=== PATIENT | male | born 1955 | race Caucasian/White ===

== ENCOUNTER 2016-11-19 10:42 | Emergency (ER) | payer OTHER ==
[~2016-11-19] VITALS: Wt 80.5 kg
[~2016-11-19 10:42] MED LIST: AMIT25TA9 PO; ASPI-664 PO; ATOR10TA65 PO; BICS PO; CALC-84 PO; CARV3.12 PO; CIPR500T4 PO; CYAN500T46 PO; GABA300C PO; HYDR-3498 PO; HYDR-3671 PO; NITR0.4T6 SL; ONDA4TAB8 PO; RANI150T5 PO; TAMS-14 PO; TERA1CAP39 PO
[2016-11-19] MEDS ORDERED: ONDANSETRON (ODT) 4 MG TAB ODT STA (11:13)
[2016-11-19] MEDS ORDERED: HYDROCODONE/APAP (10/325) TAB PO ONE (11:30)
[2016-11-19] MEDS ORDERED: CIPROFLOXACIN 500 MG TAB PO ONE (11:30)
[2016-11-19 12:10] LABS: ADD UMIC YES; UR ASCORBIC ACID NEGATIVE (NEGATIVE); UR BILIRUBIN (Dip) NEGATIVE (NEGATIVE); UR BLOOD (Dip) 2+ mg/dL (NEGATIVE); UR CLARITY CLEAR (CLEAR); UR COLOR STRAW (YELLOW); UR GLUCOSE (Dip) 3+ mg/dL (NEGATIVE); UR KETONES (Dip) NEGATIVE (NEGATIVE); UR LEUKOCYTE ESTERASE (Dip) NEGATIVE Leu/ul (NEGATIVE); UR NITRITE (Dip) NEGATIVE (NEGATIVE); UR RBC 3 /HPF (0-5); UR SPECIFIC GRAVITY (Dip) 1.016 (1.003-1.030); UR TOTAL PROTEIN (Dip) NEGATIVE (NEGATIVE); UR UROBILINOGEN (Dip) NEGATIVE (NEGATIVE)
--- NOTE | 2016-11-19 12:11 | RADRPT ---
PROCEDURE: Scrotal ultrasound CLINICAL INDICATION: Left testicular pain. TECHNIQUE: Scrotal ultrasound was performed with sagittal and transverse views. Cheng scale and co diallo imaging was performed. Images were reviewed on high resolution PACS monitors. COMPARISON: None available FINDINGS: The right testicle measures 4.6 x 2.4 x 3.2 cm. The left testicle measures 4.1 x 2.8 x 3.6 cm. There is normal size and echogenicity and morphology bilaterally. There is blood flow seen bilaterally. There is slightly increased blood flow to the left epididymis and left testis.. There is a complex, septated cystic mass in the left epididymis No hydrocele is identified. There is no evidence for varicocele. There is edema in the scrotum, more so on the left than the right. No mass or cyst or other abnormality is seen. IMPRESSION: 1. Complex appearing cystic mass in the left epididymis which may represent a complex cyst such as a spermatocele. However, an inflammatory collection could have this appearance. 2. Increased flow to the left epididymis and left testis suggesting epididymo-orchitis. 3. Left scrotal edema. Note: A call report was made to Jose Dorsey on 11/19/2016 12:08:30 PM. RPTAT: AACC Physician Carolina Date Time Electronically viewed and signed by Physician Carolina on 11/19/2016 12:10 /
[2016-11-19] MEDS ORDERED: LISI20TA11 PO (12:18)
[2016-11-19] MEDS ORDERED: HYDR-902 PO (12:23)
[2016-11-19] MEDS ORDERED: ONDA4TAB14 PO (12:23)
[2016-11-19] MEDS ORDERED: CIPR500T4 PO (12:23)
--- NOTE | 2016-11-19 12:31 | ERD ---
ER Documentation Chief Complaint Date/Time DATE: 11/19/16 TIME: 12:28 Chief Complaint ABD PAIN PAIN, BLOATING, N/V HPI Patient is a 61-year-old male with kidney disease, hypertension, and hematuria as well as previous urine infections who presents with left-sided groin and testicle pain. He has had the symptoms for the past 3 days. He said that his left testicle is swollen. He called his primary doctor who told him to come to the emergency department. The patient denies fevers. He tried pain pills. He has no pain with urination. Upon review of old medical records this is the patient's fourth visit to the ER since 2013. He does not currently have a urologist. ROS All systems reviewed and are negative except as per history of present illness. Medications Home Meds Active Scripts Ciprofloxacin Hcl* (Ciprofloxacin Hcl*) 500 Mg Tablet, 500 MG PO BID for 14 Days , TAB Prov:JOSE NAQVI MD 11/19/16 Ondansetron (Ondansetron Odt) 4 Mg Tab.rapdis, 4 MG PO Q6H Y for NAUSEA AND/OR VOMITING, #10 TAB Prov:JOSE NAQVI MD 11/19/16 Hydrocodone/Acetaminophen ([place] 10-325 Tablet) 1 Each Tablet, 1 TAB PO Q6H Y for PAIN, #7 TAB Prov:JOSE NAQVI MD 11/19/16 Citric Acid/Sodium Citrate* (Bicitra* (PEDIATRIC)) 30 Ml Soln, 30 ML PO DAILY for 30 Days Prov:DONNA CARSON NP 01/11/14 Terazosin Hcl* (Hytrin*) 1 Mg Cap, 1 MG PO HS for 30 Days, CAP Prov:DONNA CARSON NP 01/11/14 Tamsulosin Hcl* (Flomax*) 0.4 Mg Capsr, 0.4 MG PO HS for 30 Days Prov:DONNA CARSON NP 01/11/14 Hydralazine Hcl* (Hydralazine Hcl*) 25 Mg Tab, 25 MG PO TID for 30 Days, TAB Prov:DONNA CARSON NP 01/11/14 Reported Medications Lisinopril* (Lisinopril*) 20 Mg Tablet, 20 MG PO DAILY, #30 TAB 11/19/16 Cyanocobalamin* (Vitamin B12*) 500 Mcg Tab, 1000 MCG PO DAILY, TAB 01/03/14 Calcium Carbonate-Vitamin D3 (Calcium 500 + D Tablet) 1 Each Tablet, 1 TAB PO BID, TAB 01/03/14 Nitroglycerin* (Nitroglycerin* SL) 0.4 Mg Tab.subl, 0.4 MG SL Q5MIN Y for CHEST PAIN, BOTTLE 01/03/14 Aspirin* (Aspirin* EC) 81 Mg Tablet.dr, 81 MG PO DAILY, TAB 01/03/14 Hydrocodone Bit-Acetaminophen* ([place]*) 5-325 Mg Tab, 1 TAB PO Q6 Y for PAIN, TAB 01/03/14 Atorvastatin Calcium (Atorvastatin Calcium) 10 Mg Tab, 10 MG PO HS, TAB 01/03/14 Gabapentin* (Neurontin*) 300 Mg Capsule, 300 MG PO TID, CAP 01/03/14 Carvedilol* (Coreg*) 3.125 Mg Tablet, 3.125 MG PO BID W/ FOOD, TAB 01/03/14 Ondansetron Hcl* (Zofran*) 4 Mg Tablet, 4 MG PO TID Y for NAUSEA AND/OR VOMITING , TAB 01/03/14 Amitriptyline Hcl* (Amitriptyline Hcl*) 25 Mg Tablet, 25-50 MG PO HS, TAB 01/03/14 Ranitidine Hcl* (Ranitidine Hcl*) 150 Mg Tablet, 150 MG PO BID, TAB 01/03/14 Discontinued Scripts Ciprofloxacin Hcl* (Ciprofloxacin Hcl*) 500 Mg Tab, 500 MG PO DAILY@06 for 3 Days Prov:DONNA CARSON Beto BLOCKING MACHINE OPERATOR SECOND 01/11/14 Allergies Allergies: Uncoded Allergies: ANTIBIOTICS (Allergy, Unknown, 01/03/14) PMhx/Soc History of Surgery: Yes (Lumbar/Cervical surgery) Anesthesia Reaction: No Hx Neurological Disorder: Yes (peripheral neuropathy) Hx Respiratory Disorders: No Hx Cardiac Disorders: Yes (HTN) Hx Psychiatric Problems: No Hx Miscellaneous Medical Probl: Yes (DM, peripheral neuropathy) Hx Alcohol Use: No Hx Substance Use: No Hx Tobacco Use: No Smoking Status: Never smoker FmHx Family History: No diabetes Physical Exam Vitals Vital Signs Date Time Temp Pulse Resp B/P Pulse Ox O2 Delivery O2 Flow Rate FiO2 11/19/16 10:43 80.5 90 18 158/73 96 Physical Exam Const: No acute distress Head: Atraumatic Eyes: Normal Conjunctiva ENT: Normal External Ears, Nose and Mouth. Neck: Full range of motion..~ No meningismus. Resp: Clear to auscultation bilaterally Cardio: Regular rate and rhythm, no murmurs Abd: Soft, non tender, non distended. Normal bowel sounds Skin: No petechiae or rashes Back: No midline or flank tenderness Ext: No cyanosis, or edema Neur: Awake and alert : Swollen left testicle with tenderness to palpation and scrotal erythema as well without signs of abscess or crepitus or Erin's gangrene Results 24 hrs Laboratory Tests Test 11/19/16 11:25 Urine Color STRAW Urine Clarity CLEAR Urine pH 5.0 Urine Specific [place] 1.016 Urine Ketones NEGATIVEmg/dL Urine Nitrite NEGATIVEmg/dL Urine Bilirubin NEGATIVEmg/dL Urine Urobilinogen NEGATIVEmg/dL Urine Leukocyte Esterase NEGATIVELeu/ul Urine Microscopic RBC 3/HPF Urine Microscopic WBC 7/HPF Urine Hemoglobin 2+mg/dL Urine Glucose 3+mg/dL Urine Total Protein NEGATIVEmg/dl Current Medications Medications (Trade) Dose Ordered Sig/Aubrey Route PRN Reason Start Time Stop Time Status Last Admin Dose Admin Acetaminophen/ Hydrocodone Bitart ([place] (10/325)) 1 tab ONCE ONCE PO 11/19/16 11:30 11/19/16 11:31 DC 11/19/16 12:03 Ondansetron HCl (Zofran Odt) 4 mg ONCE STAT ODT 11/19/16 11:13 11/19/16 11:15 DC 11/19/16 12:05 Ciprofloxacin (Cipro) 500 mg ONCE ONCE PO 11/19/16 11:30 11/19/16 11:31 DC 11/19/16 12:05 Procedures/MDM PROCEDURE: Scrotal ultrasound CLINICAL INDICATION: Left testicular pain. TECHNIQUE: Scrotal ultrasound was performed with sagittal and transverse views. Cheng scale and color imaging was performed. Images were reviewed on high resolution PACS monitors. COMPARISON: None available FINDINGS: The right testicle measures 4.6 x 2.4 x 3.2 cm. The left testicle measures 4.1 x 2.8 x 3.6 cm. There is normal size and echogenicity and morphology bilaterally. There is blood flow seen bilaterally. There is slightly increased blood flow to the left epididymis and left testis.. There is a complex, septated cystic mass in the left epididymis No hydrocele is identified. There is no evidence for varicocele. There is edema in the scrotum, more so on the left than the right. No mass or cyst or other abnormality is seen. IMPRESSION: 1. Complex appearing cystic mass in the left epididymis which may represent a complex cyst such as a spermatocele. However, an inflammatory collection could have this appearance. 2. Increased flow to the left epididymis and left testis suggesting epididymo- orchitis. 3. Left scrotal edema. Note: A call report was made to Jose Dorsey on 11/19/2016 12:08:30 PM. RPTAT: AACC Physician [place] Date Time Electronically viewed and signed by Francisco Nickerson Physician on 11/19/2016 12: 10 Urinalysis shows mild infection, urine culture pending. Patient is a 61-year-old male who presents with left-sided testicle pain and swelling. There is no sign of testicular torsion per radiology. The patient has an epididymitis and orchitis. He will be treated with 2 weeks of Cipro. He said that he has allergies to antibiotics but he has taken Cipro in the past which works well for him. The patient has a urine culture which is pending. I believe outpatient management is appropriate at this time but I will give him information for Dr. Rodriguez from urology. He should follow-up within 24-48 hours. He can return for any worsening symptoms. He was provided with copies of his laboratory studies and ultrasound report prior to discharge. Departure Diagnosis: Primary Impression: Orchitis Condition: Fair Patient Instructions: Treating Epididymitis and Orchitis Referrals: ANCA RODRIGUEZ MD Additional Instructions: SPECIALIST: YOU HAVE A MEDICAL CONDITION WHICH REQUIRES YOU TO SEE A SPECIALIST WITHIN THE NEXT 1-2 DAYS. PLEASE FOLLOW UP WITH YOUR PRIMARY PHYSICIAN FOR REFFERAL.IF YOU DO NOT HAVE A PRIMARY CARE PHYSICIAN AND/OR YOU CAN NOT AFFORD TO SEE A PHYSICIAN THE FOLLOWING RESOURCES HAVE BEEN SUPPLIED TO YOU. IT IS YOUR RESPONSIBILITY TO BE SEEN BY THE SPECIALIST JOSE NAQVI MD Nov 19, 2016 12:31
[2016-11-19 12:32] VITALS: BP 132/73; PULSE 88; RESP 16
== END 2016-11-19 13:13 | disposition home or self-care (01) ==
LOC: E/R 10:42
DX: N45.2 Orchitis (principal); E11.9 Type 2 diabetes mellitus without complications; I12.9 Hypertensive chronic kidney disease with stage 1 through stage 4 chronic kidney disease, or unspecified chronic kidney disease; N18.9 Chronic kidney disease, unspecified; Z79.82 Long term (current) use of aspirin
CPT/HCPCS: 76870; 81001; 87086; Z7502; Z7610

== ENCOUNTER 2016-11-24 13:52 | Inpatient (IN) | payer OTHER ==
[~2016-11-24] VITALS: Ht 157.5 cm; Wt 78.0 kg
[~2016-11-24 13:52] MED LIST changes: +HYDR-902 PO; +LISI20TA11 PO; +NITR0.4T32 SL; -NITR0.4T6 SL; +ONDA4TAB14 PO
--- NOTE | 2016-11-24 17:17 | ERA ---
ER Documentation Chief Complaint Date/Time DATE: 11/24/16 TIME: 17:16 Chief Complaint cp, Left Testicular pain HPI The patient is a 61-year-old male, presenting with left testicular pain for approximately 1 week, was seen in the ER about 5 days ago and diagnosed with left epididymoorchitis and discharged with Cipro. He is not getting better despite taking Cipro. He has not been able to see a urologist yet He complains of left-sided chest pain acute on chronic chest pain today. He normally took Viagra he denies chest pain with exertion/vomiting/diaphoresis. He denied dysuria, diarrhea, constipation, painful urination or frequent urination. He does not smoke or drink Past medical history: Chronic neck pain, chronic back pain, peripheral neuropathy, diabetes mellitus, hypertension, chronic kidney disease, dyslipidemia, left foot drop Past surgical history: Back, abdominal exploratory surgery ROS All systems reviewed and are negative except as per history of present illness. Medications Home Meds Active Scripts Ondansetron (Ondansetron Odt) 4 Mg Tab.rapdis, 4 MG PO Q6H Y for NAUSEA AND/OR VOMITING, #10 TAB Prov:JOSE NAQVI MD 11/19/16 Hydrocodone/Acetaminophen ([place] 10-325 Tablet) 1 Each Tablet, 1 TAB PO Q6H Y for PAIN, #7 TAB Prov:JOSE NAQVI MD 11/19/16 Hydralazine Hcl* (Hydralazine Hcl*) 25 Mg Tab, 25 MG PO TID for 30 Days, TAB Prov:DONNA CARSON NP 01/11/14 Reported Medications Ergocalciferol (Vitamin D2) (VITAMIN D2) 50,000 Unit Capsule, 66606 UNIT PO Q7D , CAP 11/24/16 Lisinopril/Hydrochlorothiazide (Lisinopril-Hctz 20-12.5 mg Tab) 1 Each Tablet, 1 EACH PO BID, TAB 11/24/16 Ibuprofen* (Ibuprofen*) 600 Mg Tablet, 600 MG PO BID Y for PAIN, TAB 11/24/16 Sildenafil Citrate* (Viagra*) 100 Mg Tablet, 100 MG PO DAILY, TAB 11/24/16 Insulin Lispro (Humalog Kwikpen U-100) 100 Unit/1 Ml Insuln.pen, 40 UNIT SQ WITH MEALS TID 11/24/16 Insulin Glargine* (Lantus*) 100 Unit/Ml Soln, 60 UNIT SC QHS, #1 VIAL 11/24/16 Nitroglycerin* (Nitroglycerin* SL) 0.4 Mg Tab.subl, 0.4 MG SL Q5MIN Y for CHEST PAIN, BOTTLE 01/03/14 Gabapentin* (Neurontin*) 300 Mg Capsule, 300 MG PO DAILY, CAP 01/03/14 Discontinued Reported Medications Lisinopril* (Lisinopril*) 20 Mg Tablet, 20 MG PO DAILY, #30 TAB 11/19/16 Cyanocobalamin* (Vitamin B12*) 500 Mcg Tab, 1000 MCG PO DAILY, TAB 01/03/14 Calcium Carbonate-Vitamin D3 (Calcium 500 + D Tablet) 1 Each Tablet, 1 TAB PO BID, TAB 01/03/14 Aspirin* (Aspirin* EC) 81 Mg Tablet.dr, 81 MG PO DAILY, TAB 01/03/14 Hydrocodone Bit-Acetaminophen* ([place]*) 5-325 Mg Tab, 1 TAB PO Q6 Y for PAIN, TAB 01/03/14 Atorvastatin Calcium (Atorvastatin Calcium) 10 Mg Tab, 10 MG PO HS, TAB 01/03/14 Carvedilol* (Coreg*) 3.125 Mg Tablet, 3.125 MG PO BID W/ FOOD, TAB 01/03/14 Ondansetron Hcl* (Zofran*) 4 Mg Tablet, 4 MG PO TID Y for NAUSEA AND/OR VOMITING , TAB 01/03/14 Amitriptyline Hcl* (Amitriptyline Hcl*) 25 Mg Tablet, 25-50 MG PO HS, TAB 01/03/14 Ranitidine Hcl* (Ranitidine Hcl*) 150 Mg Tablet, 150 MG PO BID, TAB 01/03/14 Discontinued Scripts Ciprofloxacin Hcl* (Ciprofloxacin Hcl*) 500 Mg Tablet, 500 MG PO BID for 14 Days , TAB Prov:JOSE NAQVI MD 11/19/16 Citric Acid/Sodium Citrate* (Bicitra* (PEDIATRIC)) 30 Ml Soln, 30 ML PO DAILY for 30 Days Prov:DONNA CARSON NP 01/11/14 Terazosin Hcl* (Hytrin*) 1 Mg Cap, 1 MG PO HS for 30 Days, CAP Prov:DONNA CARSON NP 01/11/14 Tamsulosin Hcl* (Flomax*) 0.4 Mg Capsr, 0.4 MG PO HS for 30 Days Prov:DONNA CARSON INSPECTOR STRUCTURAL BONDING 01/11/14 Ciprofloxacin Hcl* (Ciprofloxacin Hcl*) 500 Mg Tab, 500 MG PO DAILY@06 for 3 Days Prov:DONNA CARSON INSPECTOR STRUCTURAL BONDING 01/11/14 Allergies Allergies: Uncoded Allergies: ANTIBIOTICS (Allergy, Unknown, 01/03/14) PMhx/Soc History of Surgery: Yes (Lumbar/Cervical surgery) Anesthesia Reaction: No Hx Neurological Disorder: Yes (peripheral neuropathy) Hx Respiratory Disorders: No Hx Cardiac Disorders: Yes (HTN) Hx Psychiatric Problems: No Hx Miscellaneous Medical Probl: Yes (DM, peripheral neuropathy) Hx Alcohol Use: No Hx Substance Use: No Hx Tobacco Use: No Physical Exam Vitals Vital Signs Date Time Temp Pulse Resp B/P Pulse Ox O2 Delivery O2 Flow Rate FiO2 11/24/16 19:40 104 20 151/71 95 Room Air 11/24/16 14:00 98.1 111 18 128/60 99 Physical Exam Const: No acute distress. Head: Atraumatic. Eyes: Normal Conjunctiva. ENT: Normal External Ears, Nose and Mouth. Neck: Full range of motion. No meningismus. Resp: Clear to auscultation bilaterally. Cardio: Regular rate and rhythm. Abd: Soft, non distended, normal bowel sounds, non tender. Skin: No petechiae or rashes. Back: No midline or flank tenderness. Ext: No cyanosis, or edema. Neur: Awake and alert. No focal deficit Psych: Normal Mood and Affect. Genitourinary: Left testicle is edematous and erythematous and tender Result Diagram: 11/24/16 1800 11/24/16 1800 Results 24 hrs Laboratory Tests Test 11/24/16 18:00 11/24/16 18:05 White Blood Count 15.010^3/ul Red Blood Count 4.7210^6/ul Hemoglobin 12.5g/dl Hematocrit 38.4% Mean Corpuscular Volume 81.4fl Mean Corpuscular Hemoglobin 26.5pg Mean Corpuscular Hemoglobin Concent 32.6g/dl Red Cell Distribution Width 13.1% Platelet Count 86848^3/UL Mean Platelet Volume 9.8fl Neutrophils % 80.5% Lymphocytes % 12.5% Monocytes % 4.7% Eosinophils % 1.5% Basophils % 0.3% Nucleated Red Blood Cells % 0.0/100WBC Neutrophils # 12.110^3/ul Lymphocytes # 1.910^3/ul Monocytes # 0.710^3/ul Eosinophils # 0.210^3/ul Basophils # 0.010^3/ul Nucleated Red Blood Cells # 0.010^3/ul Sodium Level 135mmol/L Potassium Level 4.1mmol/L Chloride Level 100mmol/L Carbon Dioxide Level 23mmol/L Anion Gap 16 Blood Urea Nitrogen 40mg/dl Creatinine 1.95mg/dl Glucose Level 276mg/dl Calcium Level 9.7mg/dl Troponin I < 0.012ng/ml Urine Color STRAW Urine Clarity CLEAR Urine pH 5.0 Urine Specific [place] 1.013 Urine Ketones NEGATIVEmg/dL Urine Nitrite NEGATIVEmg/dL Urine Bilirubin NEGATIVEmg/dL Urine Urobilinogen NEGATIVEmg/dL Urine Leukocyte Esterase NEGATIVELeu/ul Urine Microscopic RBC 0/HPF Urine Microscopic WBC 5/HPF Urine Hemoglobin 1+mg/dL Urine Glucose 3+mg/dL Urine Total Protein NEGATIVEmg/dl Current Medications Medications (Trade) Dose Ordered Sig/Aubrey Route PRN Reason Start Time Stop Time Status Last Admin Dose Admin Levofloxacin/ Dextrose (Levaquin 750 Mg/ D5W 150 ml (Pmx)) 150 ml @ 100 mls/hr ONCE ONCE IVPB 11/24/16 19:00 11/24/16 20:29 Cancel Morphine Sulfate (morphine) 4 mg ONCE STAT IV 11/24/16 18:47 11/24/16 18:49 DC 11/24/16 18:58 Ondansetron HCl 4 mg 4 mg ONCE STAT IV 11/24/16 18:47 11/24/16 18:50 DC 11/24/16 18:57 Levofloxacin/ Dextrose (Levaquin 500mg/ D5W 100 ml (Pmx)) 100 ml @ 100 mls/hr ONCE ONCE IVPB 11/24/16 19:30 11/24/16 20:29 DC 11/24/16 19:31 Aspirin (Aspirin) 162 mg ONCE ONCE PO 11/24/16 19:30 11/24/16 19:31 DC 11/24/16 19:34 IV Flush (NS 3 ml) 3 ml PER PROTOCOL IV 11/24/16 20:30 Ondansetron HCl (Zofran Inj) 4 mg Q6H PRN IV NAUSEA AND/OR VOMITING 11/24/16 20:30 Acetaminophen (Tylenol Tab) 650 mg Q6H PRN PO PAIN LEVEL 1-3 OR FEVER 11/24/16 20:30 Morphine Sulfate (morphine) 2 mg Q4H PRN IV PAIN LEVEL 7-10 11/24/16 20:30 Famotidine (Pepcid) 20 mg Q24H PO 11/24/16 21:00 Procedures/[place] [id number] Radiology Main Line: [phone] DIAGNOSTIC IMAGING REPORT Patient: HEENA CHRISTIAN : 1955 Age: 61 Sex: M MR #: [id number] DOS: 11/24/16 0000 Ordering MD: LAYLA MUSTAFA MD Location: E/R Room/Bed: PROCEDURE: Scrotal ultrasound CLINICAL INDICATION: Scrotal swelling. TECHNIQUE: Cheng scale and color Doppler imaging of the scrotum was performed. COMPARISON: Exam dated 11/19/2016. FINDINGS: Right testicle: 4.5 x 2.6 x 3.2 cm. Normal size and echogenicity. Increased flow Right epididymis: Unremarkable. Left testicle: 4.5 x 1.4 x 3.5 cm. Lesion within the left harshil scrotum that demonstrates mixed solid and cystic components with flow identified in the solid appearing components and causes scalloping of the adjacent left testicle measuring 5.2 x 2.8 x 4.2 cm. There is increased flow within the left testicle. There is edema within the overlying scrotal wall. Left epididymis: Hypervascular, but otherwise unremarkable. Hydrocele: None. Varicocele: None. IMPRESSION: 1. Heterogeneous mixed solid cystic lesion within the left harshil scrotum measuring 4.5 x 1.4 x 3.5 cm causing scalloping of the left testicle. This is suspicious for neoplasm and urology consultation is recommended. Pre and post contrast MRI may be helpful to further characterize a lesion. 2. Bilateral testicular hyperemia, possibly related to orchitis. 3. Left epididymal hyperemia, consistent with epididymitis. RPTAT: HLBP .Jose Oliver MD, MD Date Time Electronically viewed and signed by .Jose Oliver MD, MD on 11/24/2016 20:32 .P/ CC: LAYLA MUSTAFA MD [place] [address] Radiology Main Line: [phone] DIAGNOSTIC IMAGING REPORT Patient: HEENA CHRISTIAN : 1955 Age: 61 Sex: M MR #: [id number] DOS: 11/24/16 1740 Ordering MD: LAYLA MUSTAFA MD Location: E/R Room/Bed: PROCEDURE: XR Chest. CLINICAL INDICATION: Chest Pain. TECHNIQUE: Single frontal view of the chest was obtained. COMPARISON: 01/03/2014 FINDINGS: The cardiomediastinal silhouette is normal size. Pulmonary vasculature is within normal limits. There is elevation of the right diaphragm. There is pleural thickening along the lateral right chest wall.. No signs of pleural fluid or pneumothorax are seen. The osseous structures and soft tissues are unremarkable. IMPRESSION: 1. Elevation of the right hemidiaphragm. Pleural thickening along the lateral right chest wall. 2. No focal consolidation or edema. RPTAT: DD .Jose George MD, MD Date Time Electronically viewed and signed by .Jose George MD, MD on 11/24/2016 18:28 .T/ CC: LAYLA MUSTAFA MD EKG: Read by emergency physician Rate/Rhythm: Sinus tachycardia 107 beats/min QRS, ST, T-waves: No ST elevation, no T inversion Impression: Abnormal EKG MEDICAL MAKING DECISION: The patient is a 61-year-old male, presenting with acute left epididymal orchitis, failed outpatient therapy, acute chest pain. He was treated with Levaquin IV for acute epididymal orchitis and aspirin 150 mg p.o. for acute chest pain with good response X The differential diagnoses considered include but are not limited to acute coronary syndrome, acute myocardial infarction, pericarditis, pulmonary embolism , aortic dissection, pneumonia, pleural effusion, pneumothorax, GERD, chest wall pain. Consultation: I discussed this with the on-call urologist Dr. Morgan who accepted the patient at 7 PM and requested a repeat testicular ultrasound Departure Diagnosis: Primary Impression: Left epididymitis Additional Impressions: Orchitis, left Chest pain Anemia Condition: Stable Comments I discussed the findings with the patient. I discussed the patient with the on- call hospitalist Dr Bernal who was made aware of the lab, the treatment, the patient condition. The patient is admitted to [facility] James MD Nov 24, 2016 17:17
[2016-11-24 18:23] LABS: BASOPHILS % 0.3 % (0.0-2.0); EOSINOPHILS # 0.2 10^3/ul (0.0-0.5); EOSINOPHILS % 1.5 % (0.0-7.0); HEMATOCRIT 38.4 % (42.0-52.0); HEMOGLOBIN 12.5 g/dl (14.0-18.0); LYMPHOCYTES # 1.9 10^3/ul (0.8-2.9); LYMPHOCYTES % 12.5 % (15.0-51.0); MEAN CORPUSCULAR HEMOGLOBIN 26.5 pg (29.0-33.0); MEAN CORPUSCULAR HGB CONC 32.6 g/dl (32.0-37.0); MEAN CORPUSCULAR VOLUME 81.4 fl (82.0-101.0); MEAN PLATELET VOLUME 9.8 fl (7.4-10.4); MONOCYTE # 0.7 10^3/ul (0.3-0.9); MONOCYTES % 4.7 % (0.0-11.0); NEUTROPHIL # 12.1 10^3/ul (1.6-7.5); NEUTROPHILS % 80.5 % (39.0-77.0); PLATELET COUNT 244 10^3/UL (140-415); RED BLOOD COUNT 4.72 10^6/ul (4.70-6.10); RED CELL DISTRIBUTION WIDTH 13.1 % (11.5-14.5)
--- NOTE | 2016-11-24 18:28 | RADRPT ---
PROCEDURE: XR Chest. CLINICAL INDICATION: Chest Pain. TECHNIQUE: Single frontal view of the chest was obtained. COMPARISON: 01/03/2014 FINDINGS: The cardiomediastinal silhouette is normal size. Pulmonary vasculature is within normal limits. Th ere is elevation of the right diaphragm. There is pleural thickening along the lateral right chest w all.. No signs of pleural fluid or pneumothorax are seen. The osseous structures and soft tissues are unre markable. IMPRESSION: 1. Elevation of the right hemidiaphragm. Pleural thickening along the lateral right chest wall. 2. No focal consolidation or edema. RPTAT: DD .Jose George MD, MD Date Time Electronically viewed and signed by .Jose eGorge MD, on 11/24/2016 18:28 .T/
[2016-11-24 18:38] LABS: ADD UMIC YES; UR ASCORBIC ACID NEGATIVE (NEGATIVE); UR BILIRUBIN (Dip) NEGATIVE (NEGATIVE); UR BLOOD (Dip) 1+ mg/dL (NEGATIVE); UR CLARITY CLEAR (CLEAR); UR COLOR STRAW (YELLOW); UR GLUCOSE (Dip) 3+ mg/dL (NEGATIVE); UR KETONES (Dip) NEGATIVE (NEGATIVE); UR LEUKOCYTE ESTERASE (Dip) NEGATIVE Leu/ul (NEGATIVE); UR NITRITE (Dip) NEGATIVE (NEGATIVE); UR RBC 0 /HPF (0-5); UR SPECIFIC GRAVITY (Dip) 1.013 (1.003-1.030); UR TOTAL PROTEIN (Dip) NEGATIVE (NEGATIVE); UR UROBILINOGEN (Dip) NEGATIVE (NEGATIVE)
[2016-11-24 18:46] LABS: ANION GAP 16 (8-16); BLOOD UREA NITROGEN 40 mg/dl (7-20); CALCIUM 9.7 mg/dl (8.4-10.2); CARBON DIOXIDE 23 mmol/L (21-31); CHLORIDE 100 mmol/L (97-110); CREATININE 1.95 mg/dl (0.61-1.24); GLUCOSE 276 mg/dl (70-220); POTASSIUM 4.1 mmol/L (3.5-5.1); SODIUM 135 mmol/L (135-144)
[2016-11-24] MEDS ORDERED: morphine 4 MG/ML VIAL IV STA (18:47)
[2016-11-24] MEDS ORDERED: ONDANSETRON 4 MG INJ IV STA (18:47)
[2016-11-24] MEDS ORDERED: LANT3I SC (18:55)
[2016-11-24 18:59] LABS: TROPONIN-I < 0.012 ng/ml (0.00-0.12)
[2016-11-24] MEDS ORDERED: LEVOFLOXACIN 750MG/D5W (PMX) 150 ML IVPB ONE (19:00)
[2016-11-24] MEDS ORDERED: INSU100I12 SQ (19:05)
[2016-11-24] MEDS ORDERED: SILD100T51 PO (19:07)
[2016-11-24] MEDS ORDERED: IBUP-1542 PO (19:08)
[2016-11-24] MEDS ORDERED: LISI1TAB6 PO (19:13)
[2016-11-24] MEDS ORDERED: ERGO500037 PO (19:14)
[2016-11-24] MEDS ORDERED: ASPIRIN 81 MG TAB PO ONE (19:30)
[2016-11-24] MEDS ORDERED: LEVOFLOXACIN 500MG/D5W (PMX) 100 ML IVPB ONE (19:30)
--- NOTE | 2016-11-24 20:13 | HP ---
Date/Time of Note Date/Time of Note DATE: 11/24/16 TIME: 20:12 Assessment/Plan VTE Prophylaxis VTE Prophylaxis Intervention: SCD's Lines/Catheters IV [facility]ter [facility] (from [facility]): Saline Lock Assessment/Plan Chief Complaint/Hosp Course This is a 61-year-old male being admitted to the telemetry floor for: #1 chest pain: Rule out ACS. Patient does have risk factors of diabetes and hypertension. Will trend cardiac troponins, first set negative. Will check a echocardiogram. Morphine as needed. Cardiology if indicated. #2 scrotal swelling: Cystic lesion of the hemiscrotum 4.5 x 1.4 x 3.5 cm causing scalloping of the left testicle, signs of possible epididymoorchitis. At the current time we will treat the patient with Levaquin and IM ceftriaxone. Will check a penile swab for GC chlamydia. Urology consulted via the ED. Will defer further imaging to urology recommendations. #3 diabetes mellitus: Continue home Lantus, insulin sliding scale, check hemoglobin A1c #4 hypertension: Continue patient home medications, monitor blood pressure #5 chronic kidney disease: Previous creatinine was above 2. Will renally dose medications at this time. Will avoid nephrotoxic agents. Will consult nephro if indicated. #6 DVT and GI prophylaxis: SCDs, acid falguni Further treatment strategy as per the clinical course Problems: HPI/ROS Admit Date/Time Admit Date/Time Hx of Present Illness Chief complaint: Testicular pain, chest pain The patient is a 61-year-old male, presenting with left testicular pain for approximately 1 week, was seen in the ER about 5 days ago and diagnosed with left epididymoorchitis and discharged with Cipro. He is not getting better despite taking Cipro. He has not been able to see a urologist yet He complains of left-sided chest pain that radiated to the back. He denied dysuria, diarrhea , constipation, painful urination or frequent urination. He does not smoke or drink Allergies: Antibiotics unknown which ones Patient's: See BYRON RODRIGUEZ Const: As per HPI Eyes : No pain discharge or redness or change in visual acuity ENT: No pain, sore throat, congestion, congestion, dysphagia or discharge Respiratory: No shortness of breath, cough, sputum, wheezing, or pleuritic pain Cardiovascular: As per HPI GI : no change in appetite, abdominal pain, nausea, vomiting, diarrhea, constipation, or change in the color his stool Genitourinary: As per HPI Musculoskeletal: No joint pain, back pain, neck pain, restricted range of motion in neck or joints Skin: No rash, bruising or hives Neuro: No headache, dizziness, syncope, seizure, focal weakness Endocrine: No polyuria, polydipsia, temperature intolerance Psych: No hallucination, depression, anxiety or suicidal ideation PMH/Family/Social Past Medical History Chronic neck pain, chronic back pain, peripheral neuropathy, diabetes mellitus , hypertension, chronic kidney disease, dyslipidemia, left foot drop Past Surgical History Back, abdominal exploratory surgery Family History Significant Family History: no pertinent family hx Social History Alcohol Use: none Smoking Status: Never smoker Drug Use: none Exam/Review of Systems Vital Signs Vitals Vital Signs Date Time Temp Pulse Resp B/P Pulse Ox O2 Delivery O2 Flow Rate FiO2 11/24/16 19:40 104 20 151/71 95 Room Air 11/24/16 14:00 98.1 Exam Exam General: Patient is well-developed well-nourished The patient is alert oriented -3 lying comfortably in bed. HEENT: Atraumatic, normocephalic. The pupils are equal, round and reactive. Extraocular motor are intact Neck: Supple with full range of motion. No rigidity or meningismus Chest: Nontender Lungs: Clear to auscultation bilaterally no crackles rales or wheezing Heart: Normal S1-S2, Regular rhythm and rate. No overt murmurs appreciated Abdomen: Soft , nontender, nondistended , bowel sounds are present. No guarding no rebound tenderness , No masses or organomegaly. No costovertebral temporal angle mass Genitourinary: Testicular swelling noted left greater than the right, erythema noted, tenderness to palpation over the left scrotal region to palpation Extremities: Normal to inspection, no edema no cyanosis Neurologic: Normal mental status, speech normal, cranial nerves II through XII are intact, motor and sensory are intact, no focal weakness Additional Comments PROCEDURE: Scrotal ultrasound CLINICAL INDICATION: Scrotal swelling. TECHNIQUE: Cheng scale and color Doppler imaging of the scrotum was performed. COMPARISON: Exam dated 11/19/2016. FINDINGS: Right testicle: 4.5 x 2.6 x 3.2 cm. Normal size and echogenicity. Increased flow Right epididymis: Unremarkable. Left testicle: 4.5 x 1.4 x 3.5 cm. Lesion within the left harshil scrotum that demonstrates mixed solid and cystic components with flow identified in the solid appearing components and causes scalloping of the adjacent left testicle measuring 5.2 x 2.8 x 4.2 cm. There is increased flow within the left testicle. There is edema within the overlying scrotal wall. Left epididymis: Hypervascular, but otherwise unremarkable. Hydrocele: None. Varicocele: None. IMPRESSION: 1. Heterogeneous mixed solid cystic lesion within the left harshil scrotum measuring 4.5 x 1.4 x 3.5 cm causing scalloping of the left testicle. This is suspicious for neoplasm and urology consultation is recommended. Pre and post contrast MRI may be helpful to further characterize a lesion. 2. Bilateral testicular hyperemia, possibly related to orchitis. 3. Left epididymal hyperemia, consistent with epididymitis. RPTAT: HLBP .Jose Oliver MD, Date Time Electronically viewed and signed by .Jose Oliver MD, MD on 11/24/2016 20:32 .P/ CC: LAYLA MUSTAFA MD PROCEDURE: XR Chest. CLINICAL INDICATION: Chest Pain. TECHNIQUE: Single frontal view of the chest was obtained. COMPARISON: 01/03/2014 FINDINGS: The cardiomediastinal silhouette is normal size. Pulmonary vasculature is within normal limits. There is elevation of the right diaphragm. There is pleural thickening along the lateral right chest wall.. No signs of pleural fluid or pneumothorax are seen. The osseous structures and soft tissues are unremarkable. IMPRESSION: 1. Elevation of the right hemidiaphragm. Pleural thickening along the lateral right chest wall. 2. No focal consolidation or edema. RPTAT: DD .Jose George MD, Date Time Electronically viewed and signed by .Jose George MD, MD on 11/24/2016 18:28 .T/ CC: LAYLA MUSTAFA MD EKG: Rate/Rhythm: Sinus tachycardia 107 beats/min QRS, ST, T-waves: No ST elevation, no T inversion As per ED physician documentation Labs Result Diagram: 11/24/16 1800 11/24/16 1800 Medications Medications Current Medications Levofloxacin/ Dextrose (Levaquin 500mg/ D5W 100 ml (Pmx)) 100 ml @ 100 mls/hr ONCE ONCE IVPB Last administered on 11/24/16t 19:31; Admin Dose 100 MLS/HR; Start 11/24/16 at 19:30; Stop 11/24/16 at 20:29 Ondansetron HCl (Zofran Inj) 4 mg Q6H PRN IV NAUSEA AND/OR VOMITING; Start at 20:30 Acetaminophen (Tylenol Tab) 650 mg Q6H PRN PO PAIN LEVEL 1-3 OR FEVER; Start at 20:30 Morphine Sulfate (morphine) 2 mg Q4H PRN IV PAIN LEVEL 7-10; Start 11/24/16 at 20:30 Famotidine (Pepcid) 20 mg Q12 PO ; Start 11/24/16 at 21:00; Status JONAH SCHMITT Nov 24, 2016 20:13
[2016-11-24] MEDS ORDERED: NACL 0.9% 3 ML SYG IV SCH (20:30)
--- NOTE | 2016-11-24 20:33 | RADRPT ---
PROCEDURE: Scrotal ultrasound CLINICAL INDICATION: Scrotal swelling. TECHNIQUE: Cheng scale and color Doppler imaging of the scrotum was performed. COMPARISON: Exam dated 11/19/2016. FINDINGS: Right testicle: 4.5 x 2.6 x 3.2 cm. Normal size and echogenicity. Increased flow Right epididymis: Unremarkable. Left testicle: 4.5 x 1.4 x 3.5 cm. Lesion within the left harshil scrotum that demonstrates mixed lynne d and cystic components with flow identified in the solid appearing components and causes scalloping of the adjacent left testicle measuring 5.2 x 2.8 x 4.2 cm. There is increased flow within the left testicle. There is edema within the overlying scrotal wall. Left epididymis: Hypervascular, but otherwise unremarkable. Hydrocele: None. Varicocele: None. IMPRESSION: 1. Heterogeneous mixed solid cystic lesion within the left harshil scrotum measuring 4.5 x 1.4 x 3.5 c m causing scalloping of the left testicle. This is suspicious for neoplasm and urology consultation is recommended. Pre and post contrast MRI may be helpful to further characterize a lesion. 2. Bilateral testicular hyperemia, possibly related to orchitis. 3. Left epididymal hyperemia, consistent with epididymitis. RPTAT: HLBP .Jose Oliver MD, Date Time Electronically viewed and signed by .Jose Oliver MD, MD on 11/24/2016 20:32 .P/
[2016-11-24 20:57] VITALS: PULSE 109
[2016-11-24] MEDS: morphine 2 MG INJ IV PRN (22:14)
[2016-11-24] MEDS: FAMOTIDINE 20 MG TAB PO SCH (22:22)
[2016-11-24] MEDS ORDERED: DEXTROSE 50% 50 ML SYRINGE IV PRN ×2 (23:00)
[2016-11-24] MEDS ORDERED: NITROGLYCERIN (SL) 0.4 MG TAB SL PRN (23:00)
[2016-11-24] MEDS ORDERED: GLUCOSE GEL 15 GRAM TUBE BUCCAL PRN (23:00)
[2016-11-24] MEDS ORDERED: GLUCAGON 1 MG INJ IM PRN (23:00)
[2016-11-24] MEDS ORDERED: GLUCOSE GEL 15 GRAM TUBE PO PRN ×2 (23:00)
[2016-11-24] MEDS: INSULIN ASPART [NOVOLOG] 3 ML PEN SC SCH (23:12)
[2016-11-24] MEDS: INSULIN GLARGINE [LANtus] 3 ML PEN SC SCH (23:12)
[2016-11-24 23:57] VITALS: BP 140/68; RESP 21
[2016-11-25] VITALS (13 sets, daily range): BP systolic 101–158; BP diastolic 61–78; PULSE 88–117; RESP 18–20; Ht 157.5 cm; Wt 78.0 kg
[2016-11-25 00:22] LABS: CREATINE KINASE 60 IU/L (23-200)
[2016-11-25] MEDS: HYDROmorphONE 1 MG/ML SYG IV PRN ×4 (00:52→21:02)
[2016-11-25 00:54] LABS: CK-MB 1.35 ng/ml (0.0-2.4); TROPONIN-I < 0.012 ng/ml (0.00-0.12)
[2016-11-25] MEDS: ACCU-CHEK XX SCH (02:00)
[2016-11-25] MEDS ORDERED: INSULIN ASPART [NOVOLOG] 3 ML PEN SC SCH (07:55)
[2016-11-25] MEDS ORDERED: CEFTRIAXONE 250 MG INJ IM ONE (08:00)
[2016-11-25 08:23] LABS: BASOPHILS % 0.2 % (0.0-2.0); EOSINOPHILS # 0.1 10^3/ul (0.0-0.5); EOSINOPHILS % 0.6 % (0.0-7.0); HEMATOCRIT 36.2 % (42.0-52.0); LYMPHOCYTES # 2.2 10^3/ul (0.8-2.9); MEAN CORPUSCULAR HEMOGLOBIN 27.5 pg (29.0-33.0); MEAN CORPUSCULAR HGB CONC 33.1 g/dl (32.0-37.0); MEAN PLATELET VOLUME 9.9 fl (7.4-10.4); MONOCYTES % 6.2 % (0.0-11.0); NEUTROPHIL # 13.2 10^3/ul (1.6-7.5); NEUTROPHILS % 79.5 % (39.0-77.0); PLATELET COUNT 264 10^3/UL (140-415); RED BLOOD COUNT 4.36 10^6/ul (4.70-6.10); RED CELL DISTRIBUTION WIDTH 12.9 % (11.5-14.5); WHITE BLOOD COUNT 16.7 10^3/ul (4.8-10.8)
[2016-11-25] MEDS: GABAPENTIN 300 MG CAP PO SCH (08:35)
[2016-11-25] MEDS: LISINOPRIL 20 MG TAB PO SCH ×2 (08:36→20:59)
[2016-11-25] MEDS: HYDROCHLOROTHIAZIDE 12.5 MG CAP PO SCH ×2 (08:36→20:59)
[2016-11-25] MEDS: INSULIN ASPART [NOVOLOG] 3 ML PEN SC SCH ×4 (08:45→21:01)
[2016-11-25 08:52] LABS: ALBUMIN 3.3 g/dl (3.3-4.9); ALBUMIN/GLOBULIN RATIO 1.13; BILIRUBIN,INDIRECT 0.4 mg/dl (0-1.1); BILIRUBIN,TOTAL 0.4 mg/dl (0.2-1.3); CALCIUM 9.2 mg/dl (8.4-10.2); CHOL/HDL RATIO 6.5 RATIO; CREATININE 1.89 mg/dl (0.61-1.24); MAGNESIUM 2.2 mg/dl (1.7-2.5); POTASSIUM 4.7 mmol/L (3.5-5.1); TOTAL PROTEIN 6.2 g/dl (6.1-8.1)
[2016-11-25 08:57] LABS: CREATINE KINASE 50 IU/L (23-200)
[2016-11-25 09:09] LABS: TROPONIN-I < 0.012 ng/ml (0.00-0.12)
[2016-11-25 09:22] LABS: THYROID STIMULATING HORMONE 0.548 MIU/L (0.465-4.680)
[2016-11-25] MEDS: ONDANSETRON 4 MG INJ IV PRN (12:15)
[2016-11-25] MEDS: morphine 2 MG INJ IV PRN (12:16)
--- NOTE | 2016-11-25 12:53 | RADRPT ---
Echocardiogram Report Patient Name: HEENA CHRISTIAN Gender: Male Date: 1955 Study Date: 25-Nov-2016 Card Table Attendant: Guy Li [facility] [place] Location: [id number] Ref. Physician: JONAH ANDRADE Quality: Adequate Procedures: Transthoracic echocardiogram with complete 2D, M-Mode, and doppler examination. Indications: Chest Pain. 2D/M Mode Doppler Measurement Value Normal Ranges Measurement Value Normal Ranges LVIDd 2D 3.4 3.5 - 5.6 cm AV Peak Davis 1.6 m/sec LVIDs 2D 2.4 2.1 - 4.1 cm AV Peak PG 10.7 mmHg LVPWd 2D 1.4 0.6 - 1.1 cm LVOT Peak Davis 1.2 m/sec IVSd 2D 1.5 0.6 - 1.1 cm LVOT Peak PG 6.0 mmHg AoR Diam 2D 2.9 2.0 - 3.7 cm MV E Peak Davis 0.8 m/sec EDV 2D 48.8 cm3 MV A Peak Davis 0.9 m/sec ESV 2D 14.4 cm3 MV E/A 0.9 LA Dimen 2D 3.1 2.3 - 4.0 cm MV Decel Time 187 msec MV Decel Perkins 5 MV E/A 0.9 TR Peak Davis 1.7 m/sec TR Peak PG 11.4 mmHg RVSP 21.0 mmHg Findings Left Ventricle: Normal left ventricular systolic function. Normal left ventricular cavity size. Moderate concentric left ventricular hypertrophy. Ejection fraction is visually estimated at 60 %. Tissue Doppler/Mitral Doppler indices are consistent with impaired relaxation (Stage I diastolic dysfunction). Right Ventricle: Normal right ventricular size. Normal right ventricular systolic function. Left Atrium: The left atrium is normal in size. Right Atrium: The right atrium is normal in size. Mitral Valve: Normal appearance and function of the mitral valve with trace physiologic regurgitation. Aortic Valve: Normal appearance of the aortic valve. No significant aortic stenosis or insufficiency. Tricuspid Valve: Normal appearance of the tricuspid valve. Estimated peak PA systolic pressure 14 mmHg. There is trace tricuspid regurgitation. Pulmonic Valve: Normal pulmonic valve appearance. There is trace pulmonic regurgitation. Pericardium: Normal pericardium with no significant pericardial effusion. Aorta: Normal aortic root. IVC: Normal size and normal respiratory collapse consistent with normal right atrial pressure. Conclusions 1.Normal left ventricular systolic function. Normal left ventricular cavity size. Moderate concentric left ventricular hypertrophy. Ejection fraction is visually estimated at 60 %. Tissue Doppler/Mitral Doppler indices are consistent with impaired relaxation (Stage I diastolic dysfunction). 2.Normal appearance of the aortic valve. No significant aortic stenosis or insufficiency. 3.Normal appearance of the tricuspid valve. Estimated peak PA systolic pressure 14 mmHg. There is trace tricuspid regurgitation. 4.Normal appearance and function of the mitral valve with trace physiologic regurgitation. 5.Normal size and normal respiratory collapse consistent with normal right atrial pressure. Electronically Signed By: Sunil Handy 25-Nov-2016 12:52:51 -0700 Patient Name: HEENA CHRISTIAN Study Date: 25-Nov-2016 [id number]
--- NOTE | 2016-11-25 14:43 | PN ---
Date/Time of Note Date/Time of Note DATE: 11/25/16 TIME: 14:32 Assessment/Plan VTE Prophylaxis VTE Prophylaxis Intervention: SCD's Lines/Catheters IV Catheter Type (from Nrs): Saline Lock Urinary Cath still in place: No Assessment/Plan Assessment/Plan 1. Chest pain - Appears to occur when he feels testicular pain. Troponins negative x1 and will check ECHO. - Do not feel as if cardiology if needed at this time 2. Scrotal swelling - Testicular US showed cystic lesion of the hemiscrotum 4.5 x 1.4 x 3.5 cm causing scalloping of the left testicle, signs of possible epididymoorchitis. Levaquin given in ED with no issues and will give at this time. Will try and find out what his antibiotic allergies are. Will check a penile swab for GC chlamydia. - Urology was consulted by ED and will await further recommendations 3. Diabetes mellitus - Continue home Lantus, insulin sliding scale - 11.5. Will get inclusion special educator on board 4. Hypertension - BP stable 5. CKD - Previous creatinine was above 2. Will renally dose medications at this time. Will avoid nephrotoxic agents - Will consult nephro if indicated Subjective 24 Hr Interval Summary Free Text/Dictation Patient experiencing pain in the testicular area which he gets minimal relief with pain medications. Has associated nausea and chest discomfort with the pain but denies any vomiting, shortness of breath, dizziness, or abdominal issues. Exam/Review of Systems Vital Signs Vitals Vital Signs Date Time Temp Pulse Resp B/P Pulse Ox O2 Delivery O2 Flow Rate FiO2 11/25/16 12:00 88 11/25/16 11:34 98.8 18 113/70 98 11/25/16 00:00 Room Air Intake and Output 11/24/16 11/24/16 11/25/16 15:00 23:00 07:00 Intake Total 650 ml Balance 650 ml Exam General: mild distress due to pain that comes in spurts. awake and alert. HEENT: NC/AT, PERRL, EOMI Chest: Nontender Lungs: Clear to auscultation bilaterally no crackles rales or wheezing Heart: Regular rhythm and rate. No murmurs appreciated Abdomen: Soft , nontender, nondistended , bowel sounds are present. No guarding no rebound tenderness. Genitourinary: Testicular swelling noted left greater than the right, erythema noted, tenderness to palpation over the left scrotal region to palpation Extremities: Normal to inspection, no edema no cyanosis Results Result Diagram: 11/25/16 0720 11/25/16 0721 Results 24 hrs Laboratory Tests Test 11/24/16 18:00 11/24/16 18:05 11/24/16 22:18 11/24/16 23:09 White Blood Count 15.0 #H Red Blood Count 4.72 # Hemoglobin 12.5 #L Hematocrit 38.4 #L Mean Corpuscular Volume 81.4 L Mean Corpuscular Hemoglobin 26.5 L Mean Corpuscular Hemoglobin Concent 32.6 Red Cell Distribution Width 13.1 Platelet Count 244 Mean Platelet Volume 9.8 # Neutrophils % 80.5 H Lymphocytes % 12.5 L Monocytes % 4.7 Eosinophils % 1.5 Basophils % 0.3 Nucleated Red Blood Cells % 0.0 Neutrophils # 12.1 H Lymphocytes # 1.9 Monocytes # 0.7 Eosinophils # 0.2 Basophils # 0.0 Nucleated Red Blood Cells # 0.0 Sodium Level 135 Potassium Level 4.1 Chloride Level 100 Carbon Dioxide Level 23 Anion Gap 16 Blood Urea Nitrogen 40 H Creatinine 1.95 H Glucose Level 276 H Calcium Level 9.7 Troponin I < 0.012 Urine Color STRAW Urine Clarity CLEAR Urine pH 5.0 Urine Specific Mcintyre 1.013 Urine Ketones NEGATIVE Urine Nitrite NEGATIVE Urine Bilirubin NEGATIVE Urine Urobilinogen NEGATIVE Urine Leukocyte Esterase NEGATIVE Urine Microscopic RBC 0 Urine Microscopic WBC 5 Urine Hemoglobin 1+ H Urine Glucose 3+ H Urine Total Protein NEGATIVE Bedside Glucose 255 H 269 H Test 11/24/16 23:43 11/25/16 02:34 11/25/16 07:20 11/25/16 07:21 Creatine Kinase 60 50 Creatine Kinase Index 2.3 1.6 Creatinine Kinase MB (Mass) 1.35 0.80 Troponin I < 0.012 < 0.012 Bedside Glucose 247 H White Blood Count 16.7 H Red Blood Count 4.36 L Hemoglobin 12.0 L Hematocrit 36.2 L Mean Corpuscular Volume 83.0 Mean Corpuscular Hemoglobin 27.5 L Mean Corpuscular Hemoglobin Concent 33.1 Red Cell Distribution Width 12.9 Platelet Count 264 Mean Platelet Volume 9.9 Neutrophils % 79.5 H Lymphocytes % 13.0 L Monocytes % 6.2 Eosinophils % 0.6 Basophils % 0.2 Nucleated Red Blood Cells % 0.0 Neutrophils # 13.2 H Lymphocytes # 2.2 Monocytes # 1.0 H Eosinophils # 0.1 Basophils # 0.0 Nucleated Red Blood Cells # 0.0 Hemoglobin A1c 11.5 H Sodium Level 134 L Potassium Level 4.7 Chloride Level 101 Carbon Dioxide Level 23 Anion Gap 15 Blood Urea Nitrogen 40 H Creatinine 1.89 H Glucose Level 233 H Calcium Level 9.2 Magnesium Level 2.2 Total Bilirubin 0.4 Direct Bilirubin 0.00 Indirect Bilirubin 0.4 Aspartate Amino Transf (AST/SGOT) 14 L Alanine Aminotransferase (ALT/SGPT) 28 Alkaline Phosphatase 125 H Total Protein 6.2 Albumin 3.3 Globulin 2.90 Albumin/Globulin Ratio 1.13 Triglycerides Level 156 H Cholesterol Level 184 LDL Cholesterol, Calculated 125 HDL Cholesterol 28 L Cholesterol/HDL Ratio 6.5 Thyroid Stimulating Hormone (TSH) 0.548 Test 11/25/16 08:34 11/25/16 11:58 Bedside Glucose 236 H 213 Medications Medications Current Medications Ondansetron HCl (Zofran Inj) 4 mg Q6H PRN IV NAUSEA AND/OR VOMITING Last administered on 11/25/16 12:15; Admin Dose 4 MG; Start 11/24/16 at 20:30 Acetaminophen (Tylenol Tab) 650 mg Q6H PRN PO PAIN LEVEL 1-3 OR FEVER; Start at 20:30 Morphine Sulfate (morphine) 2 mg Q4H PRN IV PAIN LEVEL 7-10 Last administered on 11/25/16 12:16; Admin Dose 2 MG; Start 11/24/16 at 20:30 Famotidine (Pepcid) 20 mg Q24H PO Last administered on 11/24/16 22:22; Admin Dose 20 MG; Start 11/24/16 at 21:00 Acetaminophen/ Hydrocodone Bitart (Milaca (10/325)) 1 tab Q6H PRN PO PAIN; Start 11/24/16 at 23:00 Nitroglycerin (Nitroglycerin (Sl Tab) 0.4 Mg) 1 tab [id number] PRN SL CHEST PAIN ; Start 11/24/16 at 23:00 Diagnostic Test (Pha) (Accu-Chek) 1 ea 02 XX ; Start 11/25/16 at 02:00 Miscellaneous Information 1 ea NOTE XX ; Start 11/24/16 at 23:00 Glucose (Glutose) 15 gm Q15M PRN PO DECREASED GLUCOSE; Start 11/24/16 at 23:00 Glucose (Glutose) 22.5 gm Q15M PRN PO DECREASED GLUCOSE; Start 11/24/16 at 23: 00 Dextrose (D50w Syringe) 25 ml Q15M PRN IV DECREASED GLUCOSE; Start 11/24/16 at 23:00 Dextrose (D50w Syringe) 50 ml Q15M PRN IV DECREASED GLUCOSE; Start 11/24/16 at 23:00 Glucagon (Glucagen) 1 mg Q15M PRN IM DECREASED GLUCOSE; Start 11/24/16 at 23:00 Glucose (Glutose) 15 gm Q15M PRN BUCCAL DECREASED GLUCOSE; Start 11/24/16 at 23 :00 Hydralazine HCl (Apresoline) 25 mg TID PO Last administered on 11/25/16 08:36 ; Admin Dose 25 MG; Start 11/24/16 at 22:48 Insulin Glargine (Lantus) 60 unit QHS SC Last administered on 11/24/16 23:12; Admin Dose 60 UNIT; Start 11/24/16 at 23:00 Hydromorphone HCl (Dilaudid) 1 mg Q4H PRN IV PAIN Last administered on 06:51; Admin Dose 1 MG; Start 11/25/16 at 00:30 Gabapentin (Neurontin) 300 mg DAILY PO Last administered on 11/25/16 08:35; Admin Dose 300 MG; Start 11/25/16 at 09:00 Lisinopril 20 mg 20 mg BID PO Last administered on 11/25/16 08:36; Admin Dose 20 MG; Start 11/25/16 at 09:00 Levofloxacin/ Dextrose (Levaquin 500mg/ D5W 100 ml (Pmx)) 100 ml @ 100 mls/hr Q48H IVPB ; Start 11/26/16 at 19:00 Ceftriaxone Sodium (Rocephin) 250 mg ONCE ONCE IM ; Start 11/25/16 at 08:00; Stop 11/25/16 at 08:01; Status UNV Hydrochlorothiazide (Hydrochlorothiazide) 12.5 mg BID PO Last administered on 08:36; Admin Dose 12.5 MG; Start 11/25/16 at 09:00 NIHARIKA DORADO MD Nov 25, 2016 14:43
[2016-11-25] MEDS ORDERED: GABAPENTIN 300 MG CAP PO SCH (15:00)
[2016-11-25] MEDS: FAMOTIDINE 20 MG TAB PO SCH (20:59)
[2016-11-25] MEDS ORDERED: INSULIN GLARGINE [LANtus] 3 ML PEN SC SCH (21:00)
[2016-11-25] MEDS: INSULIN GLARGINE [LANtus] 3 ML PEN SC SCH (21:02)
[2016-11-26] VITALS (24 sets, daily range): BP systolic 96–145; BP diastolic 51–77; PULSE 74–102; RESP 11–21
[2016-11-26] MEDS: ACCU-CHEK XX SCH (02:00)
[2016-11-26 08:17] LABS: BASOPHILS % 0.2 % (0.0-2.0); EOSINOPHILS # 0.2 10^3/ul (0.0-0.5); EOSINOPHILS % 1.2 % (0.0-7.0); HEMOGLOBIN 11.6 g/dl (14.0-18.0); LYMPHOCYTES # 2.3 10^3/ul (0.8-2.9); LYMPHOCYTES % 14.9 % (15.0-51.0); MEAN CORPUSCULAR HEMOGLOBIN 26.5 pg (29.0-33.0); MEAN CORPUSCULAR HGB CONC 32.2 g/dl (32.0-37.0); MEAN CORPUSCULAR VOLUME 82.2 fl (82.0-101.0); MEAN PLATELET VOLUME 9.5 fl (7.4-10.4); MONOCYTES % 6.3 % (0.0-11.0); NEUTROPHIL # 11.9 10^3/ul (1.6-7.5); NEUTROPHILS % 76.9 % (39.0-77.0); PLATELET COUNT 257 10^3/UL (140-415); RED BLOOD COUNT 4.38 10^6/ul (4.70-6.10); RED CELL DISTRIBUTION WIDTH 13.2 % (11.5-14.5); WHITE BLOOD COUNT 15.5 10^3/ul (4.8-10.8)
[2016-11-26 08:39] LABS: ALBUMIN 3.8 g/dl (3.3-4.9); CALCIUM 9.5 mg/dl (8.4-10.2); CREATININE 1.83 mg/dl (0.61-1.24); MAGNESIUM 2.5 mg/dl (1.7-2.5); PHOSPHORUS 4.4 mg/dl (2.5-4.9); POTASSIUM 4.3 mmol/L (3.5-5.1)
[2016-11-26] MEDS: INSULIN ASPART [NOVOLOG] 3 ML PEN SC SCH ×4 (08:43→23:18)
[2016-11-26] MEDS: LISINOPRIL 20 MG TAB PO SCH (09:06)
[2016-11-26] MEDS: HYDROCHLOROTHIAZIDE 12.5 MG CAP PO SCH (09:06)
[2016-11-26] MEDS: GABAPENTIN 300 MG CAP PO SCH (09:06)
[2016-11-26] MEDS: ACETAMINOPHEN 325 MG TAB PO PRN ×2 (09:07→23:15)
[2016-11-26] MEDS: ONDANSETRON 4 MG INJ IV PRN (09:11)
[2016-11-26] MEDS ORDERED: LISINOPRIL 20 MG TAB PO SCH (10:00)
[2016-11-26] MEDS ORDERED: HYDROmorphONE 2 MG/ML SYG IV PRN (10:00)
[2016-11-26] MEDS: SOD CHLORIDE 0.9% 1,000 ML IV SCH ×2 (10:15→23:16)
[2016-11-26] MEDS: HYDROCODONE/APAP (10/325) TAB PO PRN ×2 (10:15→17:13)
--- NOTE | 2016-11-26 10:48 | PN ---
Date/Time of Note Date/Time of Note DATE: 11/26/16 TIME: 10:40 Assessment/Plan VTE Prophylaxis VTE Prophylaxis Intervention: SCD's Lines/Catheters [facility] [facility] Urinary Cath still in place: No Assessment/Plan Assessment/Plan 1. Scrotal swelling - Testicular US showed cystic lesion of the hemiscrotum 4.5 x 1.4 x 3.5 cm causing scalloping of the left testicle, signs of possible epididymoorchitis. Will continue on Levaquin for 10 days. Will check a penile swab for GC chlamydia. - Urology was consulted by ED and call placed to Dr. Morgan's office for follow up. 2. Chest pain- noncardiac - Appears to occur when he feels testicular pain. Troponins negative x3 - Do not feel as if cardiology if needed at this time 3. Diabetes mellitus - Continue home Lantus, insulin sliding scale. Will increase Lantus to 62 U since am sugars still >200 - 11.5. Will get clinical document improvement educator on board 4. Hypertension - BP stable - Will decrease LIsinopril to 10mg BID due to elevated Cr - Decrease Hctz to daily 5. CKD - Previous creatinine was above 2. Will renally dose medications at this time. Will avoid nephrotoxic agents - Will consult nephro if does not continue to improve - Started on gentle fluids Subjective 24 Hr Interval Summary Free Text/Dictation Patient states still has swelling in left testicle with discomfort and waves of pain. He states his urine is dark this am with "coffee ground" appearance but denies any kanika blood. He is trying to find records of his recorded allergies but willing to try antibiotics with benadryl. No acute overnight events. Exam/Review of Systems Vital Signs Vitals Vital Signs Date Time Temp Pulse Resp B/P Pulse Ox O2 Delivery O2 Flow Rate FiO2 11/26/16 08:27 88 11/26/16 07:31 97.8 18 126/66 97 11/25/16 00:00 Room Air Intake and Output 11/25/16 11/25/16 11/26/16 15:00 23:00 07:00 Intake Total 900 ml 850 ml Balance 900 ml 850 ml Exam General: mild distress due to pain that comes in waves Chest: Nontender Lungs: Clear to auscultation bilaterally no crackles rales or wheezing Heart: Regular rhythm and rate. No murmurs appreciated Abdomen: Soft , nontender, nondistended , bowel sounds are present. No guarding no rebound tenderness. Genitourinary: Testicular swelling noted left greater than the right, tenderness to palpation over the left scrotal region to palpation with erythema Extremities: Normal to inspection, no edema no cyanosis Results Result Diagram: 11/26/16 0737 11/26/16 0737 Results 24 hrs Laboratory Tests Test 11/25/16 11:58 11/25/16 17:29 11/25/16 20:25 11/26/16 01:24 Bedside Glucose 213 236 H 195 223 H Test 11/26/16 07:37 11/26/16 08:38 White Blood Count 15.5 H Red Blood Count 4.38 L Hemoglobin 11.6 L Hematocrit 36.0 L Mean Corpuscular Volume 82.2 Mean Corpuscular Hemoglobin 26.5 L Mean Corpuscular Hemoglobin Concent 32.2 Red Cell Distribution Width 13.2 Platelet Count 257 Mean Platelet Volume 9.5 Neutrophils % 76.9 Lymphocytes % 14.9 L Monocytes % 6.3 Eosinophils % 1.2 Basophils % 0.2 Nucleated Red Blood Cells % 0.0 Neutrophils # 11.9 H Lymphocytes # 2.3 Monocytes # 1.0 H Eosinophils # 0.2 Basophils # 0.0 Nucleated Red Blood Cells # 0.0 Sodium Level 135 Potassium Level 4.3 Chloride Level 100 Carbon Dioxide Level 25 Anion Gap 14 Blood Urea Nitrogen 52 H Creatinine 1.83 H Glucose Level 288 H Calcium Level 9.5 Phosphorus Level 4.4 Magnesium Level 2.5 Albumin 3.8 Bedside Glucose 252 H Medications Medications Current Medications Ondansetron HCl (Zofran Inj) 4 mg Q6H PRN IV NAUSEA AND/OR VOMITING Last administered on 11/26/16 09:11; Admin Dose 4 MG; Start 11/24/16 at 20:30 Acetaminophen (Tylenol Tab) 650 mg Q6H PRN PO PAIN LEVEL 1-3 OR FEVER Last administered on 11/26/16 09:07; Admin Dose 650 MG; Start 11/24/16 at 20:30 Morphine Sulfate (morphine) 2 mg Q4H PRN IV PAIN LEVEL 7-10 Last administered on 11/25/16 12:16; Admin Dose 2 MG; Start 11/24/16 at 20:30 Famotidine (Pepcid) 20 mg Q24H PO Last administered on 11/25/16 20:59; Admin Dose 20 MG; Start 11/24/16 at 21:00 Acetaminophen/ Hydrocodone Bitart ([place] (10)) 1 tab Q6H PRN PO PAIN Last administered on 11/26/16 10:15; Admin Dose 1 TAB; Start 11/24/16 at 23:00 Nitroglycerin (Nitroglycerin (Sl Tab) 0.4 Mg) 1 tab [id number] PRN SL CHEST PAIN ; Start 11/24/16 at 23:00 Diagnostic Test (Pha) (Accu-Chek) 1 ea 02 XX ; Start 11/25/16 at 02:00 Miscellaneous Information 1 ea NOTE XX ; Start 11/24/16 at 23:00 Glucose (Glutose) 15 gm Q15M PRN PO DECREASED GLUCOSE; Start 11/24/16 at 23:00 Glucose (Glutose) 22.5 gm Q15M PRN PO DECREASED GLUCOSE; Start 11/24/16 at 23: 00 Dextrose (D50w Syringe) 25 ml Q15M PRN IV DECREASED GLUCOSE; Start 11/24/16 at 23:00 Dextrose (D50w Syringe) 50 ml Q15M PRN IV DECREASED GLUCOSE; Start 11/24/16 at 23:00 Glucagon (Glucagen) 1 mg Q15M PRN IM DECREASED GLUCOSE; Start 11/24/16 at 23:00 Glucose (Glutose) 15 gm Q15M PRN BUCCAL DECREASED GLUCOSE; Start 11/24/16 at 23 :00 Hydralazine HCl (Apresoline) 25 mg TID PO Last administered on 11/26/16 09:06 ; Admin Dose 25 MG; Start 11/24/16 at 22:48 Insulin Glargine (Lantus) 60 unit QHS SC Last administered on 11/25/16 21:02; Admin Dose 60 UNIT; Start 11/24/16 at 23:00 Gabapentin 300 mg 300 mg DAILY PO Last administered on 11/26/16 09:06; Admin Dose 300 MG; Start 11/25/16 at 09:00 Levofloxacin/ Dextrose 100 ml @ 100 mls/hr Q48H IVPB ; Start 11/26/16 at 19:00 Sodium Chloride (NS) 1,000 ml @ 75 mls/hr [id number] IV Last administered on 11/26t 10:15; Admin Dose 75 MLS/HR; Start 11/26/16 at 10:00 Hydrochlorothiazide (Hydrochlorothiazide) 12.5 mg DAILY PO ; Start 11/27/16 at 09:00 Hydromorphone HCl (Dilaudid) 1.5 mg Q4H PRN IV SEVERE PAIN LEVEL 7-10; Start at 10:00 Lisinopril (Zestril) 10 mg BID PO ; Start 11/26/16 at 10:00 NIHARIKA DORADO MD Nov 26, 2016 10:48
--- NOTE | 2016-11-26 14:04 | CONS ---
Date/Time of Note Date/Time of Note DATE: 11/26/16 TIME: 13:57 Assessment/Plan Assessment/Plan Additional Assessment/Plan Probable infected scrotal hematoma/hydrocele Will proceed with drainage, will schedule Consultation Date/Type/Reason Admit Date/Time Date of Consultation: Nov 26, 2016 Reason for Consultation Scrotal swelling Hx of Present Illness 2 week hx increasing scrotal swelling Seen in ER 1 week ago, US showed fluid outside left testicle Returned 2 days ago with increased swelling and pain Repeat US shows compression left testicle due to complex fluid collection pain not better Social History Alcohol Use: none Smoking Status: Never smoker Drug Use: none Exam/Review of Systems Vital Signs Vitals Vital Signs Date Time Temp Pulse Resp B/P Pulse Ox O2 Delivery O2 Flow Rate FiO2 11/26/16 12:38 84 11/26/16 11:22 97.8 18 96/51 100 11/25/16 00:00 Room Air Intake and Output 11/25/16 11/25/16 11/26/16 15:00 23:00 07:00 Intake Total 900 ml 850 ml Balance 900 ml 850 ml Exam Genitourinary - Male: CVA tenderness, discharge, nl penis, nl scrotum, other ( Ttender left testicle with ulcer of scrotal skin) Results Result Diagram: 11/26/16 0737 11/26/16 0737 Results 24 hrs Laboratory Tests Test 11/25/16 17:29 11/25/16 20:25 11/26/16 01:24 11/26/16 07:37 Bedside Glucose 236 H 195 223 H White Blood Count 15.5 H Red Blood Count 4.38 L Hemoglobin 11.6 L Hematocrit 36.0 L Mean Corpuscular Volume 82.2 Mean Corpuscular Hemoglobin 26.5 L Mean Corpuscular Hemoglobin Concent 32.2 Red Cell Distribution Width 13.2 Platelet Count 257 Mean Platelet Volume 9.5 Neutrophils % 76.9 Lymphocytes % 14.9 L Monocytes % 6.3 Eosinophils % 1.2 Basophils % 0.2 Nucleated Red Blood Cells % 0.0 Neutrophils # 11.9 H Lymphocytes # 2.3 Monocytes # 1.0 H Eosinophils # 0.2 Basophils # 0.0 Nucleated Red Blood Cells # 0.0 Sodium Level 135 Potassium Level 4.3 Chloride Level 100 Carbon Dioxide Level 25 Anion Gap 14 Blood Urea Nitrogen 52 H Creatinine 1.83 H Glucose Level 288 H Calcium Level 9.5 Phosphorus Level 4.4 Magnesium Level 2.5 Albumin 3.8 Test 11/26/16 08:38 11/26/16 12:09 Bedside Glucose 252 H 192 Medications Medications Current Medications Ondansetron HCl (Zofran Inj) 4 mg Q6H PRN IV NAUSEA AND/OR VOMITING Last administered on 11/26/16 09:11; Admin Dose 4 MG; Start 11/24/16 at 20:30 Acetaminophen (Tylenol Tab) 650 mg Q6H PRN PO PAIN LEVEL 1-3 OR FEVER Last administered on 11/26/16 09:07; Admin Dose 650 MG; Start 11/24/16 at 20:30 Morphine Sulfate (morphine) 2 mg Q4H PRN IV PAIN LEVEL 7-10 Last administered on 11/25/16 12:16; Admin Dose 2 MG; Start 11/24/16 at 20:30 Famotidine (Pepcid) 20 mg Q24H PO Last administered on 11/25/16 20:59; Admin Dose 20 MG; Start 11/24/16 at 21:00 Acetaminophen/ Hydrocodone Bitart ([place] (10/325)) 1 tab Q6H PRN PO PAIN Last administered on 11/26/16 10:15; Admin Dose 1 TAB; Start 11/24/16 at 23:00 Nitroglycerin (Nitroglycerin (Sl Tab) 0.4 Mg) 1 tab [id number] PRN SL CHEST PAIN ; Start 11/24/16 at 23:00 Diagnostic Test (Pha) (Accu-Chek) 1 ea 02 XX ; Start 11/25/16 at 02:00 Miscellaneous Information 1 ea NOTE XX ; Start 11/24/16 at 23:00 Glucose (Glutose) 15 gm Q15M PRN PO DECREASED GLUCOSE; Start 11/24/16 at 23:00 Glucose (Glutose) 22.5 gm Q15M PRN PO DECREASED GLUCOSE; Start 11/24/16 at 23: 00 Dextrose (D50w Syringe) 25 ml Q15M PRN IV DECREASED GLUCOSE; Start 11/24/16 at 23:00 Dextrose (D50w Syringe) 50 ml Q15M PRN IV DECREASED GLUCOSE; Start 11/24/16 at 23:00 Glucagon (Glucagen) 1 mg Q15M PRN IM DECREASED GLUCOSE; Start 11/24/16 at 23:00 Glucose (Glutose) 15 gm Q15M PRN BUCCAL DECREASED GLUCOSE; Start 11/24/16 at 23 :00 Hydralazine HCl (Apresoline) 25 mg TID PO Last administered on 11/26/16 09:06 ; Admin Dose 25 MG; Start 11/24/16 at 22:48 Gabapentin 300 mg 300 mg DAILY PO Last administered on 11/26/16 09:06; Admin Dose 300 MG; Start 11/25/16 at 09:00 Levofloxacin/ Dextrose 100 ml @ 100 mls/hr Q48H IVPB ; Start 11/26/16 at 19:00 Sodium Chloride (NS) 1,000 ml @ 75 mls/hr [id number] IV Last administered on 11/26 10:15; Admin Dose 75 MLS/HR; Start 11/26/16 at 10:00 Hydrochlorothiazide (Hydrochlorothiazide) 12.5 mg DAILY PO ; Start 11/27/16 at 09:00 Hydromorphone HCl (Dilaudid) 1.5 mg Q4H PRN IV SEVERE PAIN LEVEL 7-10; Start at 10:00 Lisinopril (Zestril) 10 mg BID PO ; Start 11/26/16 at 10:00 Insulin Glargine (Lantus) 62 unit QHS SC ; Start 11/26/16 at 21:00 ANCA JACOBO MD Nov 26, 2016 14:04
[2016-11-26] MEDS ORDERED: METOCLOPRAMIDE 10 MG INJ ONE (19:12)
[2016-11-26] MEDS ORDERED: FENTAnyl 50 MCG/ML VIAL ONE (19:12)
[2016-11-26] MEDS ORDERED: PROPOFOL 20 ML ONE (19:12)
[2016-11-26] MEDS ORDERED: EPHEDrine SULFATE 50 MG/5 ML SYG ONE (20:28)
[2016-11-26] MEDS ORDERED: HYDROmorphONE (0.2 MG/ML) 10ML SYG IV PRN ×3 (20:30)
[2016-11-26] MEDS ORDERED: MEPERIDINE 25 MG INJ IV PRN (20:30)
[2016-11-26] MEDS ORDERED: DIPHENHYDRAMINE 50 MG INJ IV PRN (20:30)
[2016-11-26] MEDS ORDERED: ONDANSETRON 4 MG INJ IV PRN (20:30)
[2016-11-26] MEDS ORDERED: POLYMYXIN/BACITRACIN 1L IRRIG ONE (20:40)
[2016-11-26 21:51] LABS: ADD UMIC NO; UR ASCORBIC ACID NEGATIVE (NEGATIVE); UR BILIRUBIN (Dip) NEGATIVE (NEGATIVE); UR BLOOD (Dip) NEGATIVE (NEGATIVE); UR CLARITY CLEAR (CLEAR); UR COLOR YELLOW (YELLOW); UR GLUCOSE (Dip) 3+ mg/dL (NEGATIVE); UR KETONES (Dip) NEGATIVE (NEGATIVE); UR LEUKOCYTE ESTERASE (Dip) NEGATIVE Leu/ul (NEGATIVE); UR NITRITE (Dip) NEGATIVE (NEGATIVE); UR SPECIFIC GRAVITY (Dip) 1.013 (1.003-1.030); UR TOTAL PROTEIN (Dip) NEGATIVE (NEGATIVE); UR UROBILINOGEN (Dip) NEGATIVE (NEGATIVE)
[2016-11-26] MEDS: FAMOTIDINE 20 MG TAB PO SCH (23:14)
[2016-11-26] MEDS: INSULIN GLARGINE [LANtus] 3 ML PEN SC SCH (23:20)
[2016-11-26] MEDS: LISINOPRIL 10 MG TAB PO SCH (23:22)
[2016-11-26] MEDS: LEVOFLOXACIN 500MG/D5W (PMX) 100 ML IVPB SCH (23:24)
[2016-11-27] VITALS (12 sets, daily range): BP systolic 105–137; BP diastolic 55–75; PULSE 62–80; RESP 16–19
[2016-11-27] MEDS: ACCU-CHEK XX SCH (01:58)
[2016-11-27] MEDS: HYDROmorphONE 1 MG/ML SYG IV PRN ×3 (01:58→15:40)
[2016-11-27] MEDS: ONDANSETRON 4 MG INJ IV PRN ×2 (01:58→08:40)
[2016-11-27 07:16] LABS: BASOPHILS % 0.2 % (0.0-2.0); EOSINOPHILS # 0.2 10^3/ul (0.0-0.5); EOSINOPHILS % 1.6 % (0.0-7.0); HEMATOCRIT 32.7 % (42.0-52.0); HEMOGLOBIN 10.8 g/dl (14.0-18.0); LYMPHOCYTES # 1.7 10^3/ul (0.8-2.9); LYMPHOCYTES % 14.5 % (15.0-51.0); MEAN CORPUSCULAR VOLUME 81.8 fl (82.0-101.0); MEAN PLATELET VOLUME 9.6 fl (7.4-10.4); MONOCYTE # 0.6 10^3/ul (0.3-0.9); MONOCYTES % 5.5 % (0.0-11.0); NEUTROPHIL # 8.9 10^3/ul (1.6-7.5); NEUTROPHILS % 77.5 % (39.0-77.0); PLATELET COUNT 249 10^3/UL (140-415); RED CELL DISTRIBUTION WIDTH 13.2 % (11.5-14.5); WHITE BLOOD COUNT 11.5 10^3/ul (4.8-10.8)
[2016-11-27 07:45] LABS: ALBUMIN 3.4 g/dl (3.3-4.9); CALCIUM 9.2 mg/dl (8.4-10.2); CREATININE 1.44 mg/dl (0.61-1.24); MAGNESIUM 2.1 mg/dl (1.7-2.5); PHOSPHORUS 4.3 mg/dl (2.5-4.9); POTASSIUM 4.8 mmol/L (3.5-5.1)
[2016-11-27] MEDS: INSULIN ASPART [NOVOLOG] 3 ML PEN SC SCH ×4 (07:55→20:26)
[2016-11-27] MEDS: HYDROCHLOROTHIAZIDE 12.5 MG CAP PO SCH (08:39)
[2016-11-27] MEDS: HYDROCODONE/APAP (10/325) TAB PO PRN (08:40)
[2016-11-27] MEDS: GABAPENTIN 300 MG CAP PO SCH (08:40)
[2016-11-27] MEDS: LISINOPRIL 10 MG TAB PO SCH ×2 (08:40→20:04)
--- NOTE | 2016-11-27 08:55 | OPR ---
DATE OF OPERATION: 11/26/2016 PREOPERATIVE DIAGNOSIS: Scrotal abscess with devitalized scrotal skin. 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 OPERATION PERFORMED: 1. Drainage of scrotal abscess. 2. Debridement of devitalized skin and subcutaneous tissue. SURGEON: Kale Morgan MD PRACTICAL MINISTRIES PROFESSOR: ANESTHESIA: General. ANESTHESIOLOGIST: ESTIMATED BLOOD LOSS: DRAINS: Two Rober drains. COMPLICATIONS: None. INDICATIONS FOR SURGERY: This is a 51-year-old male has had approximately 9 days of scrotal pain and swelling. He was initially seen in the Emergency room at this hospital, and sent home with antibiotics. His pain and swelling did not improve despite Cipro. He was readmitted on the evening two nights ago and started on IV antibiotics with no improvement. I saw him this afternoon about 1 p.m. and noted the beginning of de-vitalization of the scrotal skin. Therefore, urgently took him to the operating room. OPERATIVE FINDINGS AT SURGERY: The patient had a large scrotal abscess which was cultured for aerobes and anaerobes. The skin of the scrotum, some of it was devitalized as was the subcutaneous tissue, and that was debrided back down to normal bleeding tissue. OPERATIVE PROCEDURE: Under general anesthesia, the patient was placed supine on the operating table, with frog-leg, prepped and draped in the usual manner. A #16 Coude catheter was placed into the bladder and urine was sent for culture. The devitalized skin was then excised with a transverse incision and the thick abscess was opened, drained and copiously irrigated with several liters of antibiotic solution. Further skin and subcutaneous tissue needed to be removed, as it was also without any signs of life. It appeared that the testicle was visualized and was normal, as was the epididymis. The head of the epididymis appeared to be significantly inflamed. Some of the tunica vaginalis needed to be excised. The entire wound was copiously irrigated once again with antibiotic solution. I brought two quadrant [place] drains, one above the testicle and one beneath the testicle through a separate stab wound on the inferior aspect of the scrotum. The wound was closed in two layers, #2-0 Vicryl to the subcutaneous layer quite loosely, and #3-0 chromic to the skin and just three sutures were placed. The drains were then sutured to the scrotal skin and a safety pin placed in both drains. At this point, a scrotal support was placed. The patient was awakened, and brought to the Recovery room in stable condition. Dictated By: MD MITZY Vargas/josef/katina /Document#: [id number]
--- NOTE | 2016-11-27 10:22 | PN ---
Date/Time of Note Date/Time of Note DATE: 11/27/16 TIME: 10:22 Assessment/Plan VTE Prophylaxis VTE Prophylaxis Intervention: SCD's Lines/Catheters IV Catheter Type (from [facility]): Peripheral IV Urinary Cath still in place: Yes Reason Cath still needed: skin wounds contaminated by urine Assessment/Plan Assessment/Plan 1. Scrotal abscess - Patient underwent drainage of scrotal abscess and tolerated well. sample sent for cultures - Currently on Levaquin. remains afebrile and WBC trending downward - Urology on board and appreciate consultation and recommendations 2. Chest pain- resolved - Appears to occur when he feels testicular pain. Troponins negative x3 - Do not feel as if cardiology if needed at this time 3. Diabetes mellitus - Continue home Lantus, insulin sliding scale. Will increase Lantus to 62 U since am sugars still >200 - 11.5 - Appreciate clinical document improvement educator recommendations. Will start on Novolog 5 Units with meals once tolerating full diet 4. Hypertension - BP stable 5. CKD - Previous creatinine was above 2. Will renally dose medications at this time. Will avoid nephrotoxic agents - Started on gentle fluids - renal function improving Subjective 24 Hr Interval Summary Free Text/Dictation Patient tolerated procedure well but has been having difficulty getting rest because of noisy patient in next bed. He is very frustrated. Denies any new symptoms and no overnight events. Exam/Review of Systems Vital Signs Vitals Vital Signs Date Time Temp Pulse Resp B/P Pulse Ox O2 Delivery O2 Flow Rate FiO2 11/27/16 08:19 80 11/27/16 07:53 98.4 16 105/55 99 11/26/16 23:00 Nasal Cannula 2.0 Intake and Output 11/26/16 11/26/16 11/27/16 15:00 23:00 07:00 Intake Total 1500 ml 360 ml Output Total 505 ml 500 ml Balance 995 ml -140 ml Exam General: mild distress due to pain that comes in waves Chest: Nontender Lungs: Clear to auscultation bilaterally no crackles rales or wheezing CVS: Regular rhythm and rate. No murmurs appreciated : dressing with drain in place. no discharge or drainage Extremities: Normal to inspection, no edema no cyanosis Results Result Diagram: 11/27/16 0630 11/27/16 0630 Results 24 hrs Laboratory Tests Test 11/26/16 12:09 11/26/16 17:47 11/26/16 20:47 11/26/16 22:10 Bedside Glucose 192 194 174 Urine Color YELLOW Urine Clarity CLEAR Urine pH 5.0 Urine Specific [place] 1.013 Urine Ketones NEGATIVE Urine Nitrite NEGATIVE Urine Bilirubin NEGATIVE Urine Urobilinogen NEGATIVE Urine Leukocyte Esterase NEGATIVE Urine Hemoglobin NEGATIVE Urine Glucose 3+ H Urine Total Protein NEGATIVE Test 11/26/16 23:13 11/27/16 01:49 11/27/16 06:30 11/27/16 08:42 Bedside Glucose 178 185 140 White Blood Count 11.5 #H Red Blood Count 4.00 L Hemoglobin 10.8 L Hematocrit 32.7 L Mean Corpuscular Volume 81.8 L Mean Corpuscular Hemoglobin 27.0 L Mean Corpuscular Hemoglobin Concent 33.0 Red Cell Distribution Width 13.2 Platelet Count 249 Mean Platelet Volume 9.6 Neutrophils % 77.5 H Lymphocytes % 14.5 L Monocytes % 5.5 Eosinophils % 1.6 Basophils % 0.2 Nucleated Red Blood Cells % 0.0 Neutrophils # 8.9 H Lymphocytes # 1.7 Monocytes # 0.6 Eosinophils # 0.2 Basophils # 0.0 Nucleated Red Blood Cells # 0.0 Sodium Level 138 Potassium Level 4.8 Chloride Level 103 Carbon Dioxide Level 26 Anion Gap 14 Blood Urea Nitrogen 47 H Creatinine 1.44 H Glucose Level 164 # Calcium Level 9.2 Phosphorus Level 4.3 Magnesium Level 2.1 Albumin 3.4 Medications Medications Current Medications Ondansetron HCl (Zofran Inj) 4 mg Q6H PRN IV NAUSEA AND/OR VOMITING Last administered on 11/27/16 08:40; Admin Dose 4 MG; Start 11/24/16 at 20:30 Acetaminophen (Tylenol Tab) 650 mg Q6H PRN PO PAIN LEVEL 1-3 OR FEVER Last administered on 11/26/16 23:15; Admin Dose 650 MG; Start 11/24/16 at 20:30 Morphine Sulfate (morphine) 2 mg Q4H PRN IV PAIN LEVEL 7-10 Last administered on 11/25/16 12:16; Admin Dose 2 MG; Start 11/24/16 at 20:30 Famotidine (Pepcid) 20 mg Q24H PO Last administered on 11/26/16 23:14; Admin Dose 20 MG; Start 11/24/16 at 21:00 Acetaminophen/ Hydrocodone Bitart ([place] (10/325)) 1 tab Q6H PRN PO PAIN Last administered on 11/26/16 17:13; Admin Dose 1 TAB; Start 11/24/16 at 23:00 Nitroglycerin (Nitroglycerin (Sl Tab) 0.4 Mg) 1 tab [id number] PRN SL CHEST PAIN ; Start 11/24/16 at 23:00 Diagnostic Test (Pha) (Accu-Chek) 1 ea 02 XX Last administered on 11/27/16 01: 58; Admin Dose 1 EA; Start 11/25/16 at 02:00 Miscellaneous Information 1 ea NOTE XX ; Start 11/24/16 at 23:00 Glucose (Glutose) 15 gm Q15M PRN PO DECREASED GLUCOSE; Start 11/24/16 at 23:00 Glucose (Glutose) 22.5 gm Q15M PRN PO DECREASED GLUCOSE; Start 11/24/16 at 23: 00 Dextrose (D50w Syringe) 25 ml Q15M PRN IV DECREASED GLUCOSE; Start 11/24/16 at 23:00 Dextrose (D50w Syringe) 50 ml Q15M PRN IV DECREASED GLUCOSE; Start 11/24/16 at 23:00 Glucagon (Glucagen) 1 mg Q15M PRN IM DECREASED GLUCOSE; Start 11/24/16 at 23:00 Glucose (Glutose) 15 gm Q15M PRN BUCCAL DECREASED GLUCOSE; Start 11/24/16 at 23 :00 Hydralazine HCl (Apresoline) 25 mg TID PO Last administered on 11/27/16 08:39 ; Admin Dose 25 MG; Start 11/24/16 at 22:48 Gabapentin 300 mg 300 mg DAILY PO Last administered on 11/27/16 08:40; Admin Dose 300 MG; Start 11/25/16 at 09:00 Levofloxacin/ Dextrose 100 ml @ 100 mls/hr Q48H IVPB Last administered on 11/26 23:24; Admin Dose 100 MLS/HR; Start 11/26/16 at 19:00 Sodium Chloride (NS) 1,000 ml @ 80 mls/hr [id number] IV Last administered on 11/26 23:16; Admin Dose 80 MLS/HR; Start 11/26/16 at 10:00 Hydrochlorothiazide (Hydrochlorothiazide) 12.5 mg DAILY PO Last administered on 11/27/16 08:39; Admin Dose 12.5 MG; Start 11/27/16 at 09:00 Hydromorphone HCl (Dilaudid) 1.5 mg Q4H PRN IV SEVERE PAIN LEVEL 7-10; Start at 10:00 Lisinopril (Zestril) 10 mg BID PO Last administered on 11/27/16 08:40; Admin Dose 10 MG; Start 11/26/16 at 10:00 Insulin Glargine (Lantus) 62 unit QHS SC Last administered on 11/26/16 23:20; Admin Dose 62 UNIT; Start 11/26/16 at 21:00 Hydromorphone HCl (Dilaudid) 1 mg Q4H PRN IV PAIN Last administered on 08:55; Admin Dose 1 MG; Start 11/26/16 at 22:00 NIHARIKA DORADO MD Nov 27, 2016 10:22
[2016-11-27] MEDS: SOD CHLORIDE 0.9% 1,000 ML IV SCH (11:43)
[2016-11-27] MEDS: ACETAMINOPHEN 325 MG TAB PO PRN (18:18)
[2016-11-27] MEDS: FAMOTIDINE 20 MG TAB PO SCH (20:03)
[2016-11-27] MEDS: INSULIN GLARGINE [LANtus] 3 ML PEN SC SCH (20:10)
[2016-11-28] VITALS (11 sets, daily range): BP systolic 113–172; BP diastolic 56–82; PULSE 54–77; RESP 18
[2016-11-28] MEDS: SOD CHLORIDE 0.9% 1,000 ML IV SCH ×2 (00:32→12:04)
[2016-11-28] MEDS: ACCU-CHEK XX SCH (02:38)
[2016-11-28] MEDS: HYDROmorphONE 1 MG/ML SYG IV PRN (02:40)
[2016-11-28] MEDS: ACETAMINOPHEN 325 MG TAB PO PRN ×2 (02:40→18:36)
[2016-11-28 07:49] LABS: BASOPHILS % 0.4 % (0.0-2.0); EOSINOPHILS # 0.3 10^3/ul (0.0-0.5); EOSINOPHILS % 3.2 % (0.0-7.0); HEMOGLOBIN 10.7 g/dl (14.0-18.0); LYMPHOCYTES # 2.7 10^3/ul (0.8-2.9); LYMPHOCYTES % 33.3 % (15.0-51.0); MEAN CORPUSCULAR HEMOGLOBIN 26.1 pg (29.0-33.0); MEAN CORPUSCULAR HGB CONC 31.5 g/dl (32.0-37.0); MEAN CORPUSCULAR VOLUME 82.9 fl (82.0-101.0); MEAN PLATELET VOLUME 9.8 fl (7.4-10.4); MONOCYTE # 0.6 10^3/ul (0.3-0.9); MONOCYTES % 7.2 % (0.0-11.0); NEUTROPHIL # 4.5 10^3/ul (1.6-7.5); NEUTROPHILS % 55.3 % (39.0-77.0); PLATELET COUNT 271 10^3/UL (140-415); RED CELL DISTRIBUTION WIDTH 13.2 % (11.5-14.5); WHITE BLOOD COUNT 8.1 10^3/ul (4.8-10.8)
[2016-11-28] MEDS: INSULIN ASPART [NOVOLOG] 3 ML PEN SC SCH ×4 (07:55→20:53)
[2016-11-28 08:16] LABS: CALCIUM 9.1 mg/dl (8.4-10.2); CREATININE 1.33 mg/dl (0.61-1.24); MAGNESIUM 1.9 mg/dl (1.7-2.5); PHOSPHORUS 4.1 mg/dl (2.5-4.9); POTASSIUM 3.8 mmol/L (3.5-5.1)
[2016-11-28] MEDS: HYDROCHLOROTHIAZIDE 12.5 MG CAP PO SCH (09:33)
[2016-11-28] MEDS: GABAPENTIN 300 MG CAP PO SCH (09:33)
[2016-11-28] MEDS: LISINOPRIL 10 MG TAB PO SCH ×2 (09:33→20:37)
[2016-11-28] MEDS ORDERED: FUROSEMIDE 40 MG INJ IV ONE (11:30)
--- NOTE | 2016-11-28 16:00 | PN ---
Date/Time of Note Date/Time of Note DATE: 11/28/16 TIME: 15:50 Assessment/Plan VTE Prophylaxis VTE Prophylaxis Intervention: ambulation Lines/Catheters IV Catheter Type (from Nrs): Peripheral IV Urinary Cath still in place: Yes Reason Cath still needed: skin wounds contaminated by urine Assessment/Plan Assessment/Plan 1. Scrotal abscess - Patient underwent drainage of scrotal abscess and tolerated well. - Currently growing Strep Agalactae. Given his unknown allergy to antibiotics and tolerance of Levaquin, will continue for total 14 days. Waiting for final sensitivities and will change antibiotics if needed - WBC improving - Urology on board and appreciate consultation and recommendations 2. Scrotal swelling - Patient refusing IVF and will give one dose of Lasix IV - Encouraged patient to hydrate PO due to impaired renal function. 3. Chest pain- resolved - Appears to occur when he feels testicular pain. Troponins negative x3 - Do not feel as if cardiology if needed at this time 4. Diabetes mellitus - Continue home Lantus, insulin sliding scale. Will increase Lantus to 62 U and sugars have been better controlled - A1c 11.5 - Appreciate nurse educator recommendations. Will start on Novolog 5 Units with meals once tolerating full diet 5. Hypertension - BP stable 6. CKD - Improving. refusing IVF and encouraged PO intake. Will renally dose medications at this time. Will avoid nephrotoxic agents 7. Disposition - Awaiting final wound cultures prior to discharge Subjective 24 Hr Interval Summary Free Text/Dictation Patient still experiencing pain at site of incision and concerned IVF is causing swelling of his scrotum. Also c/o headache and Tylenol is not helping. Only slept a few hours last time Exam/Review of Systems Vital Signs Vitals Vital Signs Date Time Temp Pulse Resp B/P Pulse Ox O2 Delivery O2 Flow Rate FiO2 11/28/16 12:17 98.0 83 18 113/56 98 11/27/16 20:00 Intake and Output 11/27/16 11/27/16 11/28/16 15:00 23:00 07:00 Intake Total 960 ml 500 ml Output Total 800 ml 650 ml Balance 160 ml -150 ml Exam General: fatigued but no acute distress Chest: Nontender Lungs: Clear to auscultation bilaterally no crackles rales or wheezing CVS: Regular rhythm and rate. No murmurs appreciated : dressing with no drainage or discharge. slight swelling in testicular area, no discharge or drainage Extremities: Normal to inspection, no edema no cyanosis Results Result Diagram: 11/28/16 0654 11/28/16 0654 Results 24 hrs Laboratory Tests Test 11/27/16 17:17 11/27/16 20:03 11/28/16 02:33 11/28/16 06:54 Bedside Glucose 122 173 129 White Blood Count 8.1 # Red Blood Count 4.10 L Hemoglobin 10.7 L Hematocrit 34.0 L Mean Corpuscular Volume 82.9 Mean Corpuscular Hemoglobin 26.1 L Mean Corpuscular Hemoglobin Concent 31.5 L Red Cell Distribution Width 13.2 Platelet Count 271 Mean Platelet Volume 9.8 Neutrophils % 55.3 Lymphocytes % 33.3 Monocytes % 7.2 Eosinophils % 3.2 Basophils % 0.4 Nucleated Red Blood Cells % 0.0 Neutrophils # 4.5 Lymphocytes # 2.7 Monocytes # 0.6 Eosinophils # 0.3 Basophils # 0.0 Nucleated Red Blood Cells # 0.0 Sodium Level 136 Potassium Level 3.8 Chloride Level 105 Carbon Dioxide Level 27 Anion Gap 8 Blood Urea Nitrogen 35 #H Creatinine 1.33 H Glucose Level 94 # Calcium Level 9.1 Phosphorus Level 4.1 Magnesium Level 1.9 Albumin 3.0 L Test 11/28/16 07:49 11/28/16 11:57 Bedside Glucose 86 155 Medications Medications Current Medications Ondansetron HCl (Zofran Inj) 4 mg Q6H PRN IV NAUSEA AND/OR VOMITING Last administered on 11/27/16 08:40; Admin Dose 4 MG; Start 11/24/16 at 20:30 Acetaminophen (Tylenol Tab) 650 mg Q6H PRN PO PAIN LEVEL 1-3 OR FEVER Last administered on 11/28/16 02:40; Admin Dose 650 MG; Start 11/24/16 at 20:30 Morphine Sulfate (morphine) 2 mg Q4H PRN IV PAIN LEVEL 7-10 Last administered on 11/25/16 12:16; Admin Dose 2 MG; Start 11/24/16 at 20:30 Famotidine (Pepcid) 20 mg Q24H PO Last administered on 11/27/16 20:03; Admin Dose 20 MG; Start 11/24/16 at 21:00 Acetaminophen/ Hydrocodone Bitart ([place] (10/325)) 1 tab Q6H PRN PO PAIN Last administered on 11/26/16 17:13; Admin Dose 1 TAB; Start 11/24/16 at 23:00 Nitroglycerin (Nitroglycerin (Sl Tab) 0.4 Mg) 1 tab [id number] PRN SL CHEST PAIN ; Start 11/24/16 at 23:00 Diagnostic Test (Pha) (Accu-Chek) 1 ea 02 XX Last administered on 11/28/16 02: 38; Admin Dose 1 EA; Start 11/25/16 at 02:00 Miscellaneous Information 1 ea NOTE XX ; Start 11/24/16 at 23:00 Glucose (Glutose) 15 gm Q15M PRN PO DECREASED GLUCOSE; Start 11/24/16 at 23:00 Glucose (Glutose) 22.5 gm Q15M PRN PO DECREASED GLUCOSE; Start 11/24/16 at 23: 00 Dextrose (D50w Syringe) 25 ml Q15M PRN IV DECREASED GLUCOSE; Start 11/24/16 at 23:00 Dextrose (D50w Syringe) 50 ml Q15M PRN IV DECREASED GLUCOSE; Start 11/24/16 at 23:00 Glucagon (Glucagen) 1 mg Q15M PRN IM DECREASED GLUCOSE; Start 11/24/16 at 23:00 Glucose (Glutose) 15 gm Q15M PRN BUCCAL DECREASED GLUCOSE; Start 11/24/16 at 23 :00 Hydralazine HCl (Apresoline) 25 mg TID PO Last administered on 11/28/16 13:41 ; Admin Dose 25 MG; Start 11/24/16 at 22:48 Gabapentin 300 mg 300 mg DAILY PO Last administered on 11/28/16 09:33; Admin Dose 300 MG; Start 11/25/16 at 09:00 Levofloxacin/ Dextrose 100 ml @ 100 mls/hr Q48H IVPB Last administered on 11/26 23:24; Admin Dose 100 MLS/HR; Start 11/26/16 at 19:00 Sodium Chloride (NS) 1,000 ml @ 80 mls/hr [id number] IV Last administered on 11/28 00:32; Admin Dose 80 MLS/HR; Start 11/26/16 at 10:00 Hydrochlorothiazide (Hydrochlorothiazide) 12.5 mg DAILY PO Last administered on 11/28/16 09:33; Admin Dose 12.5 MG; Start 11/27/16 at 09:00 Hydromorphone HCl (Dilaudid) 1.5 mg Q4H PRN IV SEVERE PAIN LEVEL 7-10; Start at 10:00 Lisinopril (Zestril) 10 mg BID PO Last administered on 11/28/16 09:33; Admin Dose 10 MG; Start 11/26/16 at 10:00 Insulin Glargine (Lantus) 62 unit QHS SC Last administered on 11/27/16 20:10; Admin Dose 62 UNIT; Start 11/26/16 at 21:00 Hydromorphone HCl (Dilaudid) 1 mg Q4H PRN IV PAIN Last administered on 02:40; Admin Dose 1 MG; Start 11/26/16 at 22:00 Acetaminophen/ Butalbital/ Caffeine (Fioricet) 1 tab Q4H PRN PO HEADACHE PAIN; Start 11/28/16 at 11:00 NIHARIKA DORADO MD Nov 28, 2016 16:00
[2016-11-28] MEDS: LEVOFLOXACIN 500MG/D5W (PMX) 100 ML IVPB SCH (18:39)
[2016-11-28] MEDS: FAMOTIDINE 20 MG TAB PO SCH (20:37)
[2016-11-28] MEDS: INSULIN GLARGINE [LANtus] 3 ML PEN SC SCH (20:49)
[2016-11-28] MEDS: ONDANSETRON 4 MG INJ IV PRN (21:51)
[2016-11-29] VITALS (11 sets, daily range): BP systolic 102–121; BP diastolic 57–71; PULSE 52–73; RESP 18–20
[2016-11-29] MEDS: ACCU-CHEK XX SCH (02:00)
[2016-11-29] MEDS: ACET/BUTAL/CAFF TAB PO PRN ×4 (02:29→23:09)
[2016-11-29 07:19] LABS: BASOPHILS % 0.4 % (0.0-2.0); EOSINOPHILS # 0.3 10^3/ul (0.0-0.5); EOSINOPHILS % 3.6 % (0.0-7.0); HEMATOCRIT 35.2 % (42.0-52.0); HEMOGLOBIN 11.3 g/dl (14.0-18.0); LYMPHOCYTES # 2.6 10^3/ul (0.8-2.9); LYMPHOCYTES % 34.2 % (15.0-51.0); MEAN CORPUSCULAR HEMOGLOBIN 26.4 pg (29.0-33.0); MEAN CORPUSCULAR HGB CONC 32.1 g/dl (32.0-37.0); MEAN CORPUSCULAR VOLUME 82.2 fl (82.0-101.0); MEAN PLATELET VOLUME 9.5 fl (7.4-10.4); MONOCYTE # 0.6 10^3/ul (0.3-0.9); MONOCYTES % 7.8 % (0.0-11.0); NEUTROPHILS % 53.1 % (39.0-77.0); PLATELET COUNT 302 10^3/UL (140-415); RED BLOOD COUNT 4.28 10^6/ul (4.70-6.10); RED CELL DISTRIBUTION WIDTH 13.2 % (11.5-14.5); WHITE BLOOD COUNT 7.5 10^3/ul (4.8-10.8)
[2016-11-29 07:46] LABS: ALBUMIN 3.3 g/dl (3.3-4.9); CALCIUM 9.4 mg/dl (8.4-10.2); CREATININE 1.51 mg/dl (0.61-1.24); MAGNESIUM 1.7 mg/dl (1.7-2.5); PHOSPHORUS 4.5 mg/dl (2.5-4.9); POTASSIUM 3.9 mmol/L (3.5-5.1)
[2016-11-29] MEDS: INSULIN ASPART [NOVOLOG] 3 ML PEN SC SCH ×4 (08:19→21:04)
[2016-11-29] MEDS: GABAPENTIN 300 MG CAP PO SCH (08:41)
[2016-11-29] MEDS: HYDROCHLOROTHIAZIDE 12.5 MG CAP PO SCH (08:43)
[2016-11-29] MEDS: LISINOPRIL 10 MG TAB PO SCH (10:12)
[2016-11-29] MEDS: ONDANSETRON 4 MG INJ IV PRN (10:35)
--- NOTE | 2016-11-29 15:17 | PN ---
Date/Time of Note Date/Time of Note DATE: 11/29/16 TIME: 15:12 Assessment/Plan Lines/Catheters IV Catheter Type (from Nrsg): Peripheral IV Hoyos in Place (from Nrs): Yes Assessment/Plan Chief Complaint/Hosp Course 2 week hx increasing scrotal swelling Seen in ER 1 week ago, US showed fluid outside left testicle Returned 2 days ago with increased swelling and pain Repeat US shows compression left testicle due to complex fluid collection pain not better Problems: Assessment/Plan marked improvement post op Drains removed wound packed, continue wet to dry with NS tid hoyos removed Subjective 24 Hr Interval Summary 4 days post op drainage of scrotal abscess, feels much better, mimimal drainage Culture is strep Exam/Review of Systems Vital Signs Vitals Vital Signs Date Time Temp Pulse Resp B/P Pulse Ox O2 Delivery O2 Flow Rate FiO2 11/29/16 12:23 73 11/29/16 12:01 98.0 18 110/61 98 11/27/16 20:00 Intake and Output 11/28/16 11/28/16 11/29/16 15:00 23:00 07:00 Intake Total 700 ml Output Total 1400 ml Balance -700 ml Exam Genitourinary - Male: CVA tenderness, discharge, nl penis (penile swelling much improved), nl scrotum, other Results Result Diagram: 11/29/16 0638 11/29/16 0638 ANCA JACOBO MD Nov 29, 2016 15:17
--- NOTE | 2016-11-29 15:18 | RADRPT ---
PROCEDURE: Ultrasound Retroperitoneum. CLINICAL INDICATION: Renal insufficiency. TECHNIQUE: Cheng scale and color flow sonographic images of the kidneys and retroperitoneum were ob tained. The images were reviewed on a PACS workstation. COMPARISON: January 04, 2014 FINDINGS: The right kidney measures 10.2 cm. The left kidney measures 10.6 cm. The kidneys demonstrate normal echogenicity. No masses, stones or hydronephrosis are identified. The bladder contains a Ryan catheter and is collapsed. IMPRESSION: Unremarkable kidneys. RPTAT: AA .Danny Cash MD, MD Date Time Electronically viewed and signed by .Danny Cash MD, on 11/29/2016 15:18 .P/
--- NOTE | 2016-11-29 15:54 | PN ---
Date/Time of Note Date/Time of Note DATE: 11/29/16 TIME: 15:49 Assessment/Plan VTE Prophylaxis VTE Prophylaxis Intervention: ambulation Lines/Catheters IV Catheter Type (from Nrs): Peripheral IV Urinary Cath still in place: No Assessment/Plan Assessment/Plan 1. Scrotal abscess - Patient underwent drainage of scrotal abscess and tolerated well. - Urology on board and recommendations appreciated. drain removed, wound packed and instructions for wet to dry dressings TID - Currently growing Strep Agalactae. ID consulted given patients unknown allergies. - WBC normalized 2. Scrotal swelling - Improved after one dose lasix. 3. Chest pain- resolved - Appears to occur when he feels testicular pain. Troponins negative x3 - Do not feel as if cardiology if needed at this time - No need for telemetry monitoring 4. Diabetes mellitus - Continue home Lantus, insulin sliding scale. Will increase Lantus to 65 U - A1c 11.5 - Appreciate nurses educator recommendations. 5. Hypertension - BP stable 6. CKD - Renal US ordered for evaluated of CKD - Will renally dose medications at this time. Will avoid nephrotoxic agents - If continues to worsen, will get Nephrology on board. patient states CKD is not new Subjective 24 Hr Interval Summary Free Text/Dictation patient states didnt sleep well last night since feels as if left testicle is still swollen but explained there is a drain and packing in place. No new complaints and no overnight events. Exam/Review of Systems Vital Signs Vitals Vital Signs Date Time Temp Pulse Resp B/P Pulse Ox O2 Delivery O2 Flow Rate FiO2 11/29/16 12:23 73 11/29/16 12:01 98.0 18 110/61 98 11/27/16 20:00 Intake and Output 11/28/16 11/28/16 11/29/16 15:00 23:00 07:00 Intake Total 700 ml Output Total 1400 ml Balance -700 ml Exam General: fatigued but no acute distress Chest: Nontender Lungs: Clear to auscultation bilaterally no crackles rales or wheezing CVS: Regular rhythm and rate. No murmurs appreciated : Dry skin on lateral aspect of testicle, piggytail drain appreciated and wound packed with slight drainage. Mild tenderness to palpation. Extremities: Normal to inspection, no edema no cyanosis Results Result Diagram: 11/29/16 0638 11/29/16 0638 Results 24 hrs Laboratory Tests Test 11/28/16 17:25 11/28/16 20:26 11/29/16 02:22 11/29/16 06:38 Bedside Glucose 100 258 H 197 White Blood Count 7.5 Red Blood Count 4.28 L Hemoglobin 11.3 L Hematocrit 35.2 L Mean Corpuscular Volume 82.2 Mean Corpuscular Hemoglobin 26.4 L Mean Corpuscular Hemoglobin Concent 32.1 Red Cell Distribution Width 13.2 Platelet Count 302 Mean Platelet Volume 9.5 Neutrophils % 53.1 Lymphocytes % 34.2 Monocytes % 7.8 Eosinophils % 3.6 Basophils % 0.4 Nucleated Red Blood Cells % 0.0 Neutrophils # 4.0 Lymphocytes # 2.6 Monocytes # 0.6 Eosinophils # 0.3 Basophils # 0.0 Nucleated Red Blood Cells # 0.0 Sodium Level 134 L Potassium Level 3.9 Chloride Level 97 Carbon Dioxide Level 31 Anion Gap 10 Blood Urea Nitrogen 36 H Creatinine 1.51 H Glucose Level 201 # Calcium Level 9.4 Phosphorus Level 4.5 Magnesium Level 1.7 Albumin 3.3 Test 11/29/16 08:17 11/29/16 12:09 Bedside Glucose 168 247 H Medications Medications Current Medications Ondansetron HCl (Zofran Inj) 4 mg Q6H PRN IV NAUSEA AND/OR VOMITING Last administered on 11/29/16 10:35; Admin Dose 4 MG; Start 11/24/16 at 20:30 Acetaminophen (Tylenol Tab) 650 mg Q6H PRN PO PAIN LEVEL 1-3 OR FEVER Last administered on 11/28/16 18:36; Admin Dose 650 MG; Start 11/24/16 at 20:30 Morphine Sulfate (morphine) 2 mg Q4H PRN IV PAIN LEVEL 7-10 Last administered on 11/25/16 12:16; Admin Dose 2 MG; Start 11/24/16 at 20:30 Famotidine (Pepcid) 20 mg Q24H PO Last administered on 11/28/16 20:37; Admin Dose 20 MG; Start 11/24/16 at 21:00 Acetaminophen/ Hydrocodone Bitart ([place] (10/325)) 1 tab Q6H PRN PO PAIN Last administered on 11/26/16 17:13; Admin Dose 1 TAB; Start 11/24/16 at 23:00 Nitroglycerin (Nitroglycerin (Sl Tab) 0.4 Mg) 1 tab [id number] PRN SL CHEST PAIN ; Start 11/24/16 at 23:00 Diagnostic Test (Pha) (Accu-Chek) 1 ea 02 XX Last administered on 11/28/16 02: 38; Admin Dose 1 EA; Start 11/25/16 at 02:00 Miscellaneous Information 1 ea NOTE XX ; Start 11/24/16 at 23:00 Glucose (Glutose) 15 gm Q15M PRN PO DECREASED GLUCOSE; Start 11/24/16 at 23:00 Glucose (Glutose) 22.5 gm Q15M PRN PO DECREASED GLUCOSE; Start 11/24/16 at 23: 00 Dextrose (D50w Syringe) 25 ml Q15M PRN IV DECREASED GLUCOSE; Start 11/24/16 at 23:00 Dextrose (D50w Syringe) 50 ml Q15M PRN IV DECREASED GLUCOSE; Start 11/24/16 at 23:00 Glucagon (Glucagen) 1 mg Q15M PRN IM DECREASED GLUCOSE; Start 11/24/16 at 23:00 Glucose (Glutose) 15 gm Q15M PRN BUCCAL DECREASED GLUCOSE; Start 11/24/16 at 23 :00 Hydralazine HCl (Apresoline) 25 mg TID PO Last administered on 11/29/16 12:59 ; Admin Dose 25 MG; Start 11/24/16 at 22:48 Gabapentin 300 mg 300 mg DAILY PO Last administered on 11/29/16 08:41; Admin Dose 300 MG; Start 11/25/16 at 09:00 Levofloxacin/ Dextrose (Levaquin 500mg/ D5W 100 ml (Pmx)) 100 ml @ 100 mls/hr Q48H IVPB Last administered on 11/28/16 18:39; Admin Dose 100 MLS/HR; Start at 19:00 Hydrochlorothiazide (Hydrochlorothiazide) 12.5 mg DAILY PO Last administered on 11/29/16 08:43; Admin Dose 12.5 MG; Start 11/27/16 at 09:00 Hydromorphone HCl (Dilaudid) 1.5 mg Q4H PRN IV SEVERE PAIN LEVEL 7-10 Last administered on 11/28/16 20:06; Admin Dose 1.5 MG; Start 11/26/16 at 10:00 Lisinopril (Zestril) 10 mg BID PO Last administered on 11/29/16 10:12; Admin Dose 10 MG; Start 11/26/16 at 10:00 Insulin Glargine (Lantus) 62 unit QHS SC Last administered on 11/28/16 20:49; Admin Dose 62 UNIT; Start 11/26/16 at 21:00 Hydromorphone HCl (Dilaudid) 1 mg Q4H PRN IV PAIN Last administered on 02:40; Admin Dose 1 MG; Start 11/26/16 at 22:00 Acetaminophen/ Butalbital/ Caffeine (Fioricet) 1 tab Q4H PRN PO HEADACHE PAIN Last administered on 11/29/16 15:09; Admin Dose 1 TAB; Start 11/28/16 at 11:00 NIHARIKA DORADO MD Nov 29, 2016 15:54
[2016-11-29] MEDS ORDERED: IBUPROFEN 600 MG TAB PO ONE (17:00)
[2016-11-29] MEDS: CEFTRIAXONE 1 GM/50 ML (PMX) 50 ML IVPB SCH (17:32)
[2016-11-29] MEDS ORDERED: HYDROmorphONE 1 MG/ML SYG IV PRN (18:00)
[2016-11-29] MEDS: FAMOTIDINE 20 MG TAB PO SCH (20:59)
[2016-11-29] MEDS: INSULIN GLARGINE [LANtus] 3 ML PEN SC SCH (21:05)
[2016-11-30] MEDS: ACCU-CHEK XX SCH (02:00)
--- NOTE | 2016-11-30 02:16 | CONS ---
DATE OF ADMISSION: 11/24/2016 DATE OF CONSULTATION: 11/29/2016 REASON FOR CONSULTATION: Antibiotic management. HISTORY OF PRESENT ILLNESS: Dayanna Velasquez is a 61-year-old male who was admitted for left testicular pain for approximately one week. Patient was seen in the emergency room five days prior to admission with left epididymal orchitis and discharged was Cipro. He is not getting any better, was unable to see urologist, complained of left-sided chest pain that radiated to the back. He denied dysuria, pyuria, or hematuria. Other problems include chronic neck pain, chronic back pain, peripheral neuropathy. Patient has diabetes, hypertension, chronic renal disease, dyslipidemia and left foot drop. Past surgical history includes back and abdominal exploratory surgery. On admission, his white count was 15. H and H 12.5, 38.4, platelet count 244,000. BUN and creatinine 36/1.51. Urine negative for leukocyte esterase and for nitrites. Tests for chlamydia was negative, gonorrhea was negative. Testicular ultrasound showed heterogeneous mixed solid cystic lesion within the left hemiscrotum measuring 4.5 x 1.4 x 3.5 cm causing scalloping of the left testicle. This is suspicious for neoplasm and Urology consultation is recommended. Pre- and post contrast MRI may be helpful to further characterized the lesion. He has bilateral testicular hyperemia possibly related to orchitis, and he has left epididymal hyperemia consistent with epididymitis. He had blood cultures and urine cultures which were all negative. On the , a culture was done which grew out group B strep. This was done during surgery. He had drainage of a scrotal abscess. 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 According to Dr. Morgan, he had about nine days of scrotal pain and swelling. He had devitalization of the scrotal skin and therefore he was urgently taken to the operating room on the . He had a large scrotal abscess which was cultured, grew out group B strep. Skin of the scrotum, some of it was devitalized as was the subcutaneous tissue that was debrided back down to normal bleeding. The wound was closed and drains were placed. Scrotal support was placed. Currently, patient has marked improvement postoperatively. The wound was packed with wet-to-dry dressings. The drains were removed today. Ryan catheter was removed. Patient is currently on Levaquin. The organism is intermediate to Cipro, sensitive to cefazolin, cefotaxime, et cetera. PAST MEDICAL HISTORY: Operations as outlined. FAMILY HISTORY: Noncontributory. SOCIAL HISTORY: Does not smoke, drink, or abuse drugs. ALLERGIES: NONE TO PENICILLIN, SULFA, OR FOODS. MEDICATIONS: Per chart. REVIEW OF SYSTEMS: As per HPI. PHYSICAL EXAMINATION: GENERAL: Patient is a well-developed male who is alert, responsive, in no acute distress. VITAL SIGNS: Stable. He is afebrile. SKIN: Without generalized rash. HEENT: Within normal limits. NECK: Supple. Lymph nodes nonpalpable. CHEST: Decreased breath sounds at the bases. HEART: Without murmur or gallop. ABDOMEN: Soft, nontender without organo-splenomegaly or masses. EXTREMITIES: Without cyanosis, clubbing, or edema. GENITOURINARY: Dry skin on the lateral aspect of the testicle. Wound is packed with slight drainage. Mild tenderness to palpation. Rectal/genital exams otherwise noncontributory. NEUROLOGICAL: Within normal limits. IMPRESSION AND PLAN: Patient should be on ceftriaxone. Will switch him from Levaquin to ceftriaxone. I will dictate my findings to the hospitalist and also to Dr. Morgan. Dictated By: Zion Metzger MD JD/josef/heather /Document#: [id number]
[2016-11-30 04:07] VITALS: BP 121/64; RESP 16
[2016-11-30] MEDS: INSULIN ASPART [NOVOLOG] 3 ML PEN SC SCH ×4 (07:45→20:35)
[2016-11-30 08:30] VITALS: BP 148/69; RESP 20
[2016-11-30 08:30] LABS: BASOPHILS % 0.4 % (0.0-2.0); EOSINOPHILS # 0.2 10^3/ul (0.0-0.5); EOSINOPHILS % 2.7 % (0.0-7.0); HEMATOCRIT 36.9 % (42.0-52.0); HEMOGLOBIN 11.5 g/dl (14.0-18.0); LYMPHOCYTES # 2.9 10^3/ul (0.8-2.9); MEAN CORPUSCULAR HEMOGLOBIN 25.8 pg (29.0-33.0); MEAN CORPUSCULAR HGB CONC 31.2 g/dl (32.0-37.0); MEAN CORPUSCULAR VOLUME 82.9 fl (82.0-101.0); MEAN PLATELET VOLUME 9.8 fl (7.4-10.4); MONOCYTE # 0.5 10^3/ul (0.3-0.9); NEUTROPHIL # 3.8 10^3/ul (1.6-7.5); NEUTROPHILS % 50.7 % (39.0-77.0); PLATELET COUNT 321 10^3/UL (140-415); RED BLOOD COUNT 4.45 10^6/ul (4.70-6.10); WHITE BLOOD COUNT 7.5 10^3/ul (4.8-10.8)
[2016-11-30 08:44] LABS: ALBUMIN 3.4 g/dl (3.3-4.9); CALCIUM 9.5 mg/dl (8.4-10.2); CREATININE 1.64 mg/dl (0.61-1.24); MAGNESIUM 1.9 mg/dl (1.7-2.5); PHOSPHORUS 4.4 mg/dl (2.5-4.9); POTASSIUM 3.7 mmol/L (3.5-5.1)
[2016-11-30] MEDS ORDERED: LISINOPRIL 10 MG TAB PO SCH (09:00)
[2016-11-30] MEDS: HYDROCHLOROTHIAZIDE 12.5 MG CAP PO SCH (09:41)
[2016-11-30] MEDS: GABAPENTIN 300 MG CAP PO SCH (09:41)
[2016-11-30] MEDS: ACET/BUTAL/CAFF TAB PO PRN ×2 (09:50→20:36)
[2016-11-30] MEDS: ONDANSETRON 4 MG INJ IV PRN (10:48)
--- NOTE | 2016-11-30 12:11 | CONS ---
Date/Time of Note Date/Time of Note DATE: 11/30/16 TIME: 12:10 Assessment/Plan Assessment/Plan Additional Assessment/Plan 1. 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 Low proteinuric CKD due to diabetic nephropathy 2. Scortal abscess s/p I & D 3. SCortal cellultiis 4. H/o HTN 5. H/o DM II poorly controlled with HBA1c 11.5 Plan: Continue Current iV abx, Renally dose all abx, ID following I will order CK total, Uric acid with AM labs Urine studies including Urine sodium, Urine prot/cr ratio, Urine eosinophils has been ordered REnal US reviewed, pt Kindey size is low normal with normal echogenicity c/w early medical renal disease, no hydronephrosis I will give 1 liter NS today and follow up on Cr in AM Thanks for consultation, we will continue to follow up on patient Consultation Date/Type/Reason Admit Date/Time 11/24/2016 Date of Consultation: Nov 30, 2016 Type of Consultation: NEPHROLOGY Reason for Consultation acute kidney injury Referring Provider: NIHARIKA DORADO MD Hx of Present Illness 61 M ith PMHX of HTN, DM admitted with scrotal abscess s/p I & D, ID following pt was admitted with Cr 1.95- improved to 1.33 and again trended up to Cr 1.6- pt has been on IV abx, which had been renally dosed and renal has been consulted for Acute kidney injury, rule out CKD Constitutional: no complaints Eyes: no complaints ENT: no complaints Respiratory: no complaints Cardiovascular: chest pain, lightheadedness Gastrointestinal: no complaints Genitourinary: no complaints Musculoskeletal: no complaints Skin: no complaints Neurologic: no complaints Endocrine: no complaints Lymphatic: no complaints Psychological: no complaints Immunologic: no complaints Past Medical History Medical History: diabetes, hypertension, other (Peripheral neuropathy ) Past Surgical History Past Surgical Hx: other (S/p incision and abscess for scrotal bascess ) Family History Significant Family History: no pertinent family hx Social History Alcohol Use: none Smoking Status: Never smoker Drug Use: none Exam/Review of Systems Vital Signs Vitals Vital Signs Date Time Temp Pulse Resp B/P Pulse Ox O2 Delivery O2 Flow Rate FiO2 11/30/16 08:30 98.7 57 20 148/69 99 11/27/16 20:00 Intake and Output 11/29/16 11/29/16 11/30/16 15:00 23:00 07:00 Intake Total 850 ml 420 ml Output Total 400 ml 480 ml Balance 450 ml -60 ml Exam Constitutional: alert Psych: no complaints Head: normocephalic Eyes: EOMI, nl conjunctiva, nl lids Neck: non-tender, supple Respiratory: clear to auscultation, diminished breath sounds, normal air movement Cardiovascular: nl pulses, regular rate and rhythm Gastrointestinal: nl liver, spleen, non-tender, soft Genitourinary - Male: other (Scrotal support with dressing + ) Musculoskeletal: nl extremities to inspection, nl gait and stance Extremities: normal pulses Neurological: CLIENT CARE SPECIALIST II-XII intact, nl mental status, nl speech, nl strength Skin: nl turgor Lymph: nl lymph nodes Results Result Diagram: 11/30/16 0652 11/30/16 0652 Results 24 hrs Laboratory Tests Test 11/29/16 17:15 11/29/16 20:55 11/30/16 02:32 11/30/16 06:52 Bedside Glucose 219 267 H 248 H White Blood Count 7.5 Red Blood Count 4.45 L Hemoglobin 11.5 L Hematocrit 36.9 L Mean Corpuscular Volume 82.9 Mean Corpuscular Hemoglobin 25.8 L Mean Corpuscular Hemoglobin Concent 31.2 L Red Cell Distribution Width 13.0 Platelet Count 321 Mean Platelet Volume 9.8 Neutrophils % 50.7 Lymphocytes % 39.0 Monocytes % 6.0 Eosinophils % 2.7 Basophils % 0.4 Nucleated Red Blood Cells % 0.0 Neutrophils # 3.8 Lymphocytes # 2.9 Monocytes # 0.5 Eosinophils # 0.2 Basophils # 0.0 Nucleated Red Blood Cells # 0.0 Sodium Level 137 Potassium Level 3.7 Chloride Level 100 Carbon Dioxide Level 31 Anion Gap 10 Blood Urea Nitrogen 40 H Creatinine 1.64 H Glucose Level 101 # Uric Acid 8.8 H Calcium Level 9.5 Phosphorus Level 4.4 Magnesium Level 1.9 Albumin 3.4 Test 11/30/16 07:44 Bedside Glucose 105 Medications Medications Current Medications Ondansetron HCl (Zofran Inj) 4 mg Q6H PRN IV NAUSEA AND/OR VOMITING Last administered on 11/30/16t 10:48; Admin Dose 4 MG; Start 11/24/16 at 20:30 Acetaminophen (Tylenol Tab) 650 mg Q6H PRN PO PAIN LEVEL 1-3 OR FEVER Last administered on 11/28/16 18:36; Admin Dose 650 MG; Start 11/24/16 at 20:30 Morphine Sulfate (morphine) 2 mg Q4H PRN IV PAIN LEVEL 7-10 Last administered on 11/25/16 12:16; Admin Dose 2 MG; Start 11/24/16 at 20:30 Famotidine (Pepcid) 20 mg Q24H PO Last administered on 11/29/16 20:59; Admin Dose 20 MG; Start 11/24/16 at 21:00 Acetaminophen/ Hydrocodone Bitart ([place] (10)) 1 tab Q6H PRN PO PAIN Last administered on 11/26/16 17:13; Admin Dose 1 TAB; Start 11/24/16 at 23:00 Nitroglycerin (Nitroglycerin (Sl Tab) 0.4 Mg) 1 tab [id number] PRN SL CHEST PAIN ; Start 11/24/16 at 23:00 Diagnostic Test (Pha) (Accu-Chek) 1 ea 02 XX Last administered on 11/28/16 02: 38; Admin Dose 1 EA; Start 11/25/16 at 02:00 Miscellaneous Information 1 ea NOTE XX ; Start 11/24/16 at 23:00 Glucose (Glutose) 15 gm Q15M PRN PO DECREASED GLUCOSE; Start 11/24/16 at 23:00 Glucose (Glutose) 22.5 gm Q15M PRN PO DECREASED GLUCOSE; Start 11/24/16 at 23: 00 Dextrose (D50w Syringe) 25 ml Q15M PRN IV DECREASED GLUCOSE; Start 11/24/16 at 23:00 Dextrose (D50w Syringe) 50 ml Q15M PRN IV DECREASED GLUCOSE; Start 11/24/16 at 23:00 Glucagon (Glucagen) 1 mg Q15M PRN IM DECREASED GLUCOSE; Start 11/24/16 at 23:00 Glucose (Glutose) 15 gm Q15M PRN BUCCAL DECREASED GLUCOSE; Start 11/24/16 at 23 :00 Hydralazine HCl (Apresoline) 25 mg TID PO Last administered on 11/30/16 09:40 ; Admin Dose 25 MG; Start 11/24/16 at 22:48 Gabapentin (Neurontin) 300 mg DAILY PO Last administered on 11/30/16 09:41; Admin Dose 300 MG; Start 11/25/16 at 09:00 Hydrochlorothiazide (Hydrochlorothiazide) 12.5 mg DAILY PO Last administered on 11/30/16 09:41; Admin Dose 12.5 MG; Start 11/27/16 at 09:00 Hydromorphone HCl (Dilaudid) 1.5 mg Q4H PRN IV SEVERE PAIN LEVEL 7-10 Last administered on 11/28/16 20:06; Admin Dose 1.5 MG; Start 11/26/16 at 10:00 Acetaminophen/ Butalbital/ Caffeine (Fioricet) 1 tab Q4H PRN PO HEADACHE PAIN Last administered on 11/30/16 09:50; Admin Dose 1 TAB; Start 11/28/16 at 11:00 Insulin Glargine 65 unit 65 unit QHS SC Last administered on 11/29/16 21:05; Admin Dose 65 UNIT; Start 11/29/16 at 21:00 Ceftriaxone Sodium (Rocephin) 50 ml @ 100 mls/hr Q24H IVPB Last administered on 11/29/16 17:32; Admin Dose 100 MLS/HR; Start 11/29/16 at 17:00 Hydromorphone HCl (Dilaudid) 0.5 mg Q4H PRN IV SEVERE PAIN LEVEL 7-10; Start at 18:00 Lisinopril (Zestril) 5 mg DAILY PO ; Start 12/01/16 at 09:00 TALITA DICKENS MD Nov 30, 2016 12:11
[2016-11-30] MEDS ORDERED: SOD CHLORIDE 0.9% 1,000 ML IV SCH (12:30)
[2016-11-30 12:31] LABS: PROTEIN/CREAT RATIO 0.1 RATIO
[2016-11-30 13:00] VITALS: BP 125/67; PULSE 73
--- NOTE | 2016-11-30 15:18 | PN ---
DATE: 11/30/2016 SUBJECTIVE DATA: The patient is alert, feels good, denies pain, looks comfortable. Ryan discontinued. The patient is voiding without difficulty. LABORATORY AND DIAGNOSTIC DATA: WBC 7.5, no shift, no bands. BUN 40, creatinine 1.64. Urine culture negative. Blood cultures negative. Scrotal wound culture growing Streptococcus agalactiae and Staph species. ANTIMICROBIALS: The patient is on IV Rocephin. PHYSICAL EXAMINATION: GENERAL: Well nourished, well developed, elderly man, who is alert, in no distress. HEENT: Head atraumatic, normocephalic. Sclerae anicteric. Buccal mucosa pink. NECK: Supple. CHEST: Rise symmetrical. Breath sounds clear. HEART: S1, S2. ABDOMEN: Soft, bowel sounds present. EXTREMITIES: Without cyanosis. SKIN: Scrotal dressing intact. ASSESSMENT: 1. Systemic inflammatory response syndrome with resolving leukocytosis. 2. Status post scrotal abscess drainage with debridement of devitalized skin and subcutaneous tissue, cultures growing strep. 3. Diabetes. 4. Hypertension. 5. Chronic kidney disease. PLAN: The patient remains stable, on appropriate antimicrobials. Continue present care. Local wound care per urology's recommendations. Monitor for superinfection. Dictated By: Florin Medley NP /[email or web address]/john /Document#: [id number] [place]
--- NOTE | 2016-11-30 15:54 | PN ---
Date/Time of Note Date/Time of Note DATE: 11/30/16 TIME: 15:51 Assessment/Plan VTE Prophylaxis VTE Prophylaxis Intervention: SCD's Lines/Catheters IV Catheter Type (from Nrs): Saline Lock Urinary Cath still in place: No Assessment/Plan Assessment/Plan 1. Scrotal abscess s/p drainage - Urology on board and recommendations appreciated. drain removed, wound packed and instructions for wet to dry dressings TID - Currently growing Strep Agalactae and ID on board. Recommendations appreciated - Patient currently on ceftriaxone and tolerating well. No signs of reaction and will continue monitoring - WBC normalized 2. Scrotal swelling - resolved 3. Chest pain- resolved - Appears to occur when he feels testicular pain. Troponins negative x3 - Do not feel as if cardiology if needed at this time - No need for telemetry monitoring 4. Diabetes mellitus - Continue home Lantus, insulin sliding scale. Will increase Lantus to 65 U - A1c 11.5 - Appreciate art educator recommendations. 5. Hypertension - BP stable 6. CKD - Renal US negative - Will renally dose medications at this time. Will avoid nephrotoxic agents - Nephrology consulted and appreciate recommendations. Urine studies ordered - Will continue to monitor Subjective 24 Hr Interval Summary Free Text/Dictation Patient resting comfortably with no new complaints. No acute overnight events. Exam/Review of Systems Vital Signs Vitals Vital Signs Date Time Temp Pulse Resp B/P Pulse Ox O2 Delivery O2 Flow Rate FiO2 11/30/16 08:30 98.7 57 20 148/69 99 11/27/16 20:00 Intake and Output 11/29/16 11/29/16 11/30/16 15:00 23:00 07:00 Intake Total 850 ml 420 ml Output Total 400 ml 480 ml Balance 450 ml -60 ml Exam General: fatigued but no acute distress Chest: Nontender Lungs: Clear to auscultation bilaterally no crackles rales or wheezing CVS: Regular rhythm and rate. No murmurs appreciated : Dry skin on lateral aspect of testicle, wound packed with no discharge or drainage. Mild tenderness to palpation. Extremities: Normal to inspection, no edema no cyanosis Results Result Diagram: 11/30/16 0652 11/30/16 0652 Results 24 hrs Laboratory Tests Test 11/29/16 17:15 11/29/16 20:55 11/30/16 02:32 11/30/16 06:52 Bedside Glucose 219 267 H 248 H White Blood Count 7.5 Red Blood Count 4.45 L Hemoglobin 11.5 L Hematocrit 36.9 L Mean Corpuscular Volume 82.9 Mean Corpuscular Hemoglobin 25.8 L Mean Corpuscular Hemoglobin Concent 31.2 L Red Cell Distribution Width 13.0 Platelet Count 321 Mean Platelet Volume 9.8 Neutrophils % 50.7 Lymphocytes % 39.0 Monocytes % 6.0 Eosinophils % 2.7 Basophils % 0.4 Nucleated Red Blood Cells % 0.0 Neutrophils # 3.8 Lymphocytes # 2.9 Monocytes # 0.5 Eosinophils # 0.2 Basophils # 0.0 Nucleated Red Blood Cells # 0.0 Sodium Level 137 Potassium Level 3.7 Chloride Level 100 Carbon Dioxide Level 31 Anion Gap 10 Blood Urea Nitrogen 40 H Creatinine 1.64 H Glucose Level 101 # Uric Acid 8.8 H Calcium Level 9.5 Phosphorus Level 4.4 Magnesium Level 1.9 Albumin 3.4 Test 11/30/16 07:44 11/30/16 11:45 11/30/16 12:39 Bedside Glucose 105 255 H Urine Eosinophils % 0.0 Urine Random Creatinine 114.68 Urine Random Sodium 102 H Urine Protein/Creatinine Ratio 0.10 Urine Total Protein 12.0 H Medications Medications Current Medications Ondansetron HCl (Zofran Inj) 4 mg Q6H PRN IV NAUSEA AND/OR VOMITING Last administered on 11/30/16 10:48; Admin Dose 4 MG; Start 11/24/16 at 20:30 Acetaminophen (Tylenol Tab) 650 mg Q6H PRN PO PAIN LEVEL 1-3 OR FEVER Last administered on 11/28/16 18:36; Admin Dose 650 MG; Start 11/24/16 at 20:30 Morphine Sulfate (morphine) 2 mg Q4H PRN IV PAIN LEVEL 7-10 Last administered on 11/25/16 12:16; Admin Dose 2 MG; Start 11/24/16 at 20:30 Famotidine (Pepcid) 20 mg Q24H PO Last administered on 11/29/16 20:59; Admin Dose 20 MG; Start 11/24/16 at 21:00 Acetaminophen/ Hydrocodone Bitart ([place] (10/325)) 1 tab Q6H PRN PO PAIN Last administered on 11/26/16 17:13; Admin Dose 1 TAB; Start 11/24/16 at 23:00 Nitroglycerin (Nitroglycerin (Sl Tab) 0.4 Mg) 1 tab [id number] PRN SL CHEST PAIN ; Start 11/24/16 at 23:00 Diagnostic Test (Pha) (Accu-Chek) 1 ea 02 XX Last administered on 11/28/16 02: 38; Admin Dose 1 EA; Start 11/25/16 at 02:00 Miscellaneous Information 1 ea NOTE XX ; Start 11/24/16 at 23:00 Glucose (Glutose) 15 gm Q15M PRN PO DECREASED GLUCOSE; Start 11/24/16 at 23:00 Glucose (Glutose) 22.5 gm Q15M PRN PO DECREASED GLUCOSE; Start 11/24/16 at 23: 00 Dextrose (D50w Syringe) 25 ml Q15M PRN IV DECREASED GLUCOSE; Start 11/24/16 at 23:00 Dextrose (D50w Syringe) 50 ml Q15M PRN IV DECREASED GLUCOSE; Start 11/24/16 at 23:00 Glucagon (Glucagen) 1 mg Q15M PRN IM DECREASED GLUCOSE; Start 11/24/16 at 23:00 Glucose (Glutose) 15 gm Q15M PRN BUCCAL DECREASED GLUCOSE; Start 11/24/16 at 23 :00 Hydralazine HCl (Apresoline) 25 mg TID PO Last administered on 11/30/16 13:01 ; Admin Dose 25 MG; Start 11/24/16 at 22:48 Gabapentin (Neurontin) 300 mg DAILY PO Last administered on 11/30/16 09:41; Admin Dose 300 MG; Start 11/25/16 at 09:00 Hydrochlorothiazide (Hydrochlorothiazide) 12.5 mg DAILY PO Last administered on 11/30/16 09:41; Admin Dose 12.5 MG; Start 11/27/16 at 09:00 Hydromorphone HCl (Dilaudid) 1.5 mg Q4H PRN IV SEVERE PAIN LEVEL 7-10 Last administered on 11/28/16 20:06; Admin Dose 1.5 MG; Start 11/26/16 at 10:00 Acetaminophen/ Butalbital/ Caffeine (Fioricet) 1 tab Q4H PRN PO HEADACHE PAIN Last administered on 11/30/16 09:50; Admin Dose 1 TAB; Start 11/28/16 at 11:00 Insulin Glargine 65 unit 65 unit QHS SC Last administered on 11/29/16 21:05; Admin Dose 65 UNIT; Start 11/29/16 at 21:00 Ceftriaxone Sodium (Rocephin) 50 ml @ 100 mls/hr Q24H IVPB Last administered on 11/29/16 17:32; Admin Dose 100 MLS/HR; Start 11/29/16 at 17:00 Hydromorphone HCl (Dilaudid) 0.5 mg Q4H PRN IV SEVERE PAIN LEVEL 7-10; Start at 18:00 Lisinopril 5 mg 5 mg DAILY PO ; Start 12/01/16 at 09:00 Sodium Chloride (NS) 1,000 ml @ 75 mls/hr [id number] IV Last administered on 11/30 13:00; Admin Dose 75 MLS/HR; Start 11/30/16 at 12:30; Stop 12/01/16 at 01: 49 NIHARIKA DORADO MD Nov 30, 2016 15:54
[2016-11-30] MEDS: CEFTRIAXONE 1 GM/50 ML (PMX) 50 ML IVPB SCH (17:28)
[2016-11-30 19:10] VITALS: BP 107/63; RESP 18
[2016-11-30] MEDS: FAMOTIDINE 20 MG TAB PO SCH (20:31)
[2016-11-30] MEDS: INSULIN GLARGINE [LANtus] 3 ML PEN SC SCH (20:35)
[2016-12-01 01:48] VITALS: BP 112/63; RESP 18
[2016-12-01] MEDS: ACCU-CHEK XX SCH (02:06)
[2016-12-01 05:52] LABS: BASOPHILS % 0.5 % (0.0-2.0); EOSINOPHILS # 0.2 10^3/ul (0.0-0.5); EOSINOPHILS % 2.7 % (0.0-7.0); HEMATOCRIT 37.5 % (42.0-52.0); LYMPHOCYTES # 2.6 10^3/ul (0.8-2.9); LYMPHOCYTES % 33.9 % (15.0-51.0); MEAN CORPUSCULAR VOLUME 84.5 fl (82.0-101.0); MEAN PLATELET VOLUME 9.8 fl (7.4-10.4); MONOCYTE # 0.5 10^3/ul (0.3-0.9); MONOCYTES % 6.1 % (0.0-11.0); NEUTROPHIL # 4.2 10^3/ul (1.6-7.5); NEUTROPHILS % 55.4 % (39.0-77.0); PLATELET COUNT 336 10^3/UL (140-415); RED BLOOD COUNT 4.44 10^6/ul (4.70-6.10); RED CELL DISTRIBUTION WIDTH 12.8 % (11.5-14.5); WHITE BLOOD COUNT 7.7 10^3/ul (4.8-10.8)
[2016-12-01 06:17] LABS: ALBUMIN 3.5 g/dl (3.3-4.9); CREATININE 1.5 mg/dl (0.61-1.24); MAGNESIUM 1.8 mg/dl (1.7-2.5); PHOSPHORUS 3.9 mg/dl (2.5-4.9); POTASSIUM 4.3 mmol/L (3.5-5.1)
[2016-12-01 06:23] LABS: URIC ACID 7.9 mg/dl (3.1-7.9)
[2016-12-01 07:44] VITALS: BP 145/67; RESP 20
[2016-12-01] MEDS: GABAPENTIN 300 MG CAP PO SCH (08:52)
[2016-12-01] MEDS: LISINOPRIL 5 MG TAB PO SCH (08:52)
[2016-12-01] MEDS: HYDROCHLOROTHIAZIDE 12.5 MG CAP PO SCH (08:52)
[2016-12-01] MEDS: ACET/BUTAL/CAFF TAB PO PRN ×2 (08:52→22:07)
[2016-12-01] MEDS: INSULIN ASPART [NOVOLOG] 3 ML PEN SC SCH ×4 (08:54→21:04)
--- NOTE | 2016-12-01 14:20 | PN ---
Date/Time of Note Date/Time of Note DATE: 12/01/16 TIME: 14:13 Assessment/Plan VTE Prophylaxis VTE Prophylaxis Intervention: ambulation Lines/Catheters [facility] Saline Lock Urinary Cath still in place: No Assessment/Plan Chief Complaint/Hosp Course 1. Scrotal abscess s/p drainage - Urology on board and recommendations appreciated. drain removed, wound packed and instructions for wet to dry dressings TID - Currently growing Strep Agalactae and ID on board. Recommendations appreciated - Patient currently on ceftriaxone and tolerating well. No signs of reaction and will continue monitoring - WBC normalized 2. Scrotal swelling - resolved 3. Chest pain- resolved - Appears to occur when he feels testicular pain. Troponins negative x3 4. Diabetes mellitus - Continue home Lantus, insulin sliding scale. Will increase Lantus to 70 U - A1c 11.5 - Appreciate hospice educator recommendations. 5. Hypertension - BP stable 6. CKD - Renal US negative - Will renally dose medications at this time. Will avoid nephrotoxic agents - Nephrology consulted and appreciate recommendations. Urine studies ordered - Will continue to monitor DISPO: Will finalize abx recommendations in the next few days along with urology recs for dispo. Problems: Subjective 24 Hr Interval Summary Free Text/Dictation no acute complaints, doing well, improved pain in scrotal area. Exam/Review of Systems Vital Signs Vitals Vital Signs Date Time Temp Pulse Resp B/P Pulse Ox O2 Delivery O2 Flow Rate FiO2 12/01/16 07:44 97.5 59 20 145/67 97 11/27/16 20:00 Intake and Output 11/30/16 11/30/16 12/01/16 15:00 23:00 07:00 Intake Total 1780 ml 1240 ml Output Total 600 ml 600 ml Balance 1180 ml 640 ml Exam General: fatigued but no acute distress Chest: Nontender Lungs: Clear to auscultation bilaterally no crackles rales or wheezing CVS: Regular rhythm and rate. No murmurs appreciated : Dry skin on lateral aspect of testicle, wound with no discharge or drainage. Mild tenderness to palpation. Extremities: Normal to inspection, no edema no cyanosis Results Result Diagram: 12/01/16 0440 12/01/16 0440 Results 24 hrs Laboratory Tests Test 11/30/16 17:37 11/30/16 20:29 12/01/16 02:04 12/01/16 04:40 Bedside Glucose 291 H 196 259 H White Blood Count 7.7 Red Blood Count 4.44 L Hemoglobin 12.0 L Hematocrit 37.5 L Mean Corpuscular Volume 84.5 Mean Corpuscular Hemoglobin 27.0 L Mean Corpuscular Hemoglobin Concent 32.0 Red Cell Distribution Width 12.8 Platelet Count 336 Mean Platelet Volume 9.8 Neutrophils % 55.4 Lymphocytes % 33.9 Monocytes % 6.1 Eosinophils % 2.7 Basophils % 0.5 Nucleated Red Blood Cells % 0.0 Neutrophils # 4.2 Lymphocytes # 2.6 Monocytes # 0.5 Eosinophils # 0.2 Basophils # 0.0 Nucleated Red Blood Cells # 0.0 Sodium Level 137 Potassium Level 4.3 Chloride Level 101 Carbon Dioxide Level 26 Anion Gap 14 Blood Urea Nitrogen 39 H Creatinine 1.50 H Glucose Level 308 #H Uric Acid 7.9 Calcium Level 9.0 Phosphorus Level 3.9 Magnesium Level 1.8 Creatine Kinase 32 Albumin 3.5 Test 12/01/16 08:44 12/01/16 12:43 Bedside Glucose 179 255 H Medications Medications Current Medications Ondansetron HCl (Zofran Inj) 4 mg Q6H PRN IV NAUSEA AND/OR VOMITING Last administered on 11/30/16 10:48; Admin Dose 4 MG; Start 11/24/16 at 20:30 Acetaminophen (Tylenol Tab) 650 mg Q6H PRN PO PAIN LEVEL 1-3 OR FEVER Last administered on 11/28/16 18:36; Admin Dose 650 MG; Start 11/24/16 at 20:30 Morphine Sulfate (morphine) 2 mg Q4H PRN IV PAIN LEVEL 7-10 Last administered on 11/25/16 12:16; Admin Dose 2 MG; Start 11/24/16 at 20:30 Famotidine (Pepcid) 20 mg Q24H PO Last administered on 11/30/16 20:31; Admin Dose 20 MG; Start 11/24/16 at 21:00 Acetaminophen/ Hydrocodone Bitart ([place] (10/325)) 1 tab Q6H PRN PO PAIN Last administered on 11/26/16 17:13; Admin Dose 1 TAB; Start 11/24/16 at 23:00 Nitroglycerin (Nitroglycerin (Sl Tab) 0.4 Mg) 1 tab [id number] PRN SL CHEST PAIN ; Start 11/24/16 at 23:00 Diagnostic Test (Pha) (Accu-Chek) 1 ea 02 XX Last administered on 12/01/16 02: 06; Admin Dose 1 EA; Start 11/25/16 at 02:00 Miscellaneous Information 1 ea NOTE XX ; Start 11/24/16 at 23:00 Glucose (Glutose) 15 gm Q15M PRN PO DECREASED GLUCOSE; Start 11/24/16 at 23:00 Glucose (Glutose) 22.5 gm Q15M PRN PO DECREASED GLUCOSE; Start 11/24/16 at 23: 00 Dextrose (D50w Syringe) 25 ml Q15M PRN IV DECREASED GLUCOSE; Start 11/24/16 at 23:00 Dextrose (D50w Syringe) 50 ml Q15M PRN IV DECREASED GLUCOSE; Start 11/24/16 at 23:00 Glucagon (Glucagen) 1 mg Q15M PRN IM DECREASED GLUCOSE; Start 11/24/16 at 23:00 Glucose (Glutose) 15 gm Q15M PRN BUCCAL DECREASED GLUCOSE; Start 11/24/16 at 23 :00 Hydralazine HCl (Apresoline) 25 mg TID PO Last administered on 12/01/16 13:29 ; Admin Dose 25 MG; Start 11/24/16 at 22:48 Gabapentin (Neurontin) 300 mg DAILY PO Last administered on 12/01/16 08:52; Admin Dose 300 MG; Start 11/25/16 at 09:00 Hydrochlorothiazide (Hydrochlorothiazide) 12.5 mg DAILY PO Last administered on 12/01/16 08:52; Admin Dose 12.5 MG; Start 11/27/16 at 09:00 Hydromorphone HCl (Dilaudid) 1.5 mg Q4H PRN IV SEVERE PAIN LEVEL 7-10 Last administered on 11/28/16 20:06; Admin Dose 1.5 MG; Start 11/26/16 at 10:00 Acetaminophen/ Butalbital/ Caffeine (Fioricet) 1 tab Q4H PRN PO HEADACHE PAIN Last administered on 12/01/16 08:52; Admin Dose 1 TAB; Start 11/28/16 at 11:00 Insulin Glargine 65 unit 65 unit QHS SC Last administered on 11/30/16 20:35; Admin Dose 65 UNIT; Start 11/29/16 at 21:00 Ceftriaxone Sodium (Rocephin) 50 ml @ 100 mls/hr Q24H IVPB Last administered on 11/30/16 17:28; Admin Dose 100 MLS/HR; Start 11/29/16 at 17:00 Hydromorphone HCl (Dilaudid) 0.5 mg Q4H PRN IV SEVERE PAIN LEVEL 7-10; Start at 18:00 Lisinopril (Zestril) 5 mg DAILY PO Last administered on 12/01/16 08:52; Admin Dose 5 MG; Start 12/01/16 at 09:00 ALYCIA DANIEL Dec 01, 2016 14:20
--- NOTE | 2016-12-01 14:33 | PN ---
DATE: 12/01/2016 SUBJECTIVE DATA: No events overnight. No fevers. The patient is sleeping and in no distress. VITAL SIGNS: Temperature 98.1, pulse 70, respirations 18, blood pressure 112/63, saturation 97 on room air. LABORATORY AND DIAGNOSTIC DATA: WBC 7.7, no shift, no bands. BUN 39, creatinine 1.50. ANTIMICROBIALS: The patient is on Rocephin. MICROBIOLOGY: Wound culture grew strep agalactiae group B. PHYSICAL EXAMINATION: GENERAL: Well developed, elderly man, in no distress. HEENT: Head atraumatic, normocephalic. Sclerae anicteric. Buccal mucosa pink. NECK: Supple. CHEST: Chest rise symmetrical. Breath sounds clear. HEART: S1, S2. ABDOMEN: Soft, bowel sounds present. EXTREMITIES: No cyanosis. ASSESSMENT: 1. Systemic inflammatory response syndrome. 2. Status post scrotal abscess drainage and debridement of devitalized skin and subcutaneous tissue on November 27, [address] Morgan. 3. Acute on chronic kidney disease. 4. Diabetes. 5. Hypertension. PLAN: The patient remains stable. Continue present care, antibiotics, local wound care. Follow Urology recommendations. Dictated By: Florin Medley NP /[email or web address] /Document#: [id number]
[2016-12-01] MEDS: CEFTRIAXONE 1 GM/50 ML (PMX) 50 ML IVPB SCH (17:47)
--- NOTE | 2016-12-01 18:28 | CONS ---
Date/Time of Note Date/Time of Note DATE: 12/01/16 TIME: 18:27 Assessment/Plan Assessment/Plan Chief Complaint/Hosp Course 61 M ith PMHX of HTN, DM admitted with scrotal abscess s/p I & D, ID following pt was admitted with Cr 1.95- improved to 1.33 and again trended up to Cr 1.6- pt has been on IV abx, which had been renally dosed and renal has been consulted for Acute kidney injury, rule out CKD Problems: Additional Assessment/Plan 1. 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 Low proteinuric CKD due to diabetic nephropathy 2. Scortal abscess s/p I & D 3. SCortal cellultiis 4. H/o HTN 5. H/o DM II poorly controlled with HBA1c 11.5 Plan: Continue Current iV abx, Renally dose all abx, ID following s/p 1liter IVF< Cr 1.5 today uric 7.9- normal, CK total normal REnal US reviewed, pt Kindey size is low normal with normal echogenicity c/w early medical renal disease, no hydronephrosis will follow up Consultation Date/Type/Reason Admit Date/Time Nov 24, 2016 at 19:08 Initial Consult Date 11/30/16 Type of Consultation: NEPHROLOGY Referring Provider: NIHARIKA DORADO MD 24 HR Interval Summary Free Text/Dictation Cr 1.5 with IVF, bP stable Exam/Review of Systems Vital Signs Vitals Vital Signs Date Time Temp Pulse Resp B/P Pulse Ox O2 Delivery O2 Flow Rate FiO2 12/01/16 07:44 97.5 59 20 145/67 97 11/27/16 20:00 Intake and Output 11/30/16 11/30/16 12/01/16 15:00 23:00 07:00 Intake Total 1780 ml 1240 ml Output Total 600 ml 600 ml Balance 1180 ml 640 ml Exam Constitutional: alert Respiratory: clear to auscultation, diminished breath sounds, normal air movement Cardiovascular: nl pulses, regular rate and rhythm Gastrointestinal: nl liver, spleen, non-tender, soft Genitourinary - Male: other (Scrotal support with dressing + ) Musculoskeletal: nl extremities to inspection, nl gait and stance Extremities: normal pulses 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, nl mental status, nl speech, nl strength Skin: nl turgor Lymph: nl lymph nodes Results Result Diagram: 12/01/16 0440 12/01/16 0440 Results 24 hrs Laboratory Tests Test 11/30/16 20:29 12/01/16 02:04 12/01/16 04:40 12/01/16 08:44 Bedside Glucose 196 259 H 179 White Blood Count 7.7 Red Blood Count 4.44 L Hemoglobin 12.0 L Hematocrit 37.5 L Mean Corpuscular Volume 84.5 Mean Corpuscular Hemoglobin 27.0 L Mean Corpuscular Hemoglobin Concent 32.0 Red Cell Distribution Width 12.8 Platelet Count 336 Mean Platelet Volume 9.8 Neutrophils % 55.4 Lymphocytes % 33.9 Monocytes % 6.1 Eosinophils % 2.7 Basophils % 0.5 Nucleated Red Blood Cells % 0.0 Neutrophils # 4.2 Lymphocytes # 2.6 Monocytes # 0.5 Eosinophils # 0.2 Basophils # 0.0 Nucleated Red Blood Cells # 0.0 Sodium Level 137 Potassium Level 4.3 Chloride Level 101 Carbon Dioxide Level 26 Anion Gap 14 Blood Urea Nitrogen 39 H Creatinine 1.50 H Glucose Level 308 #H Uric Acid 7.9 Calcium Level 9.0 Phosphorus Level 3.9 Magnesium Level 1.8 Creatine Kinase 32 Albumin 3.5 Test 12/01/16 12:43 12/01/16 17:38 Bedside Glucose 255 H 240 H Medications Medications Current Medications Ondansetron HCl (Zofran Inj) 4 mg Q6H PRN IV NAUSEA AND/OR VOMITING Last administered on 11/30/16 10:48; Admin Dose 4 MG; Start 11/24/16 at 20:30 Acetaminophen (Tylenol Tab) 650 mg Q6H PRN PO PAIN LEVEL 1-3 OR FEVER Last administered on 11/28/16 18:36; Admin Dose 650 MG; Start 11/24/16 at 20:30 Morphine Sulfate (morphine) 2 mg Q4H PRN IV PAIN LEVEL 7-10 Last administered on 11/25/16 12:16; Admin Dose 2 MG; Start 11/24/16 at 20:30 Famotidine (Pepcid) 20 mg Q24H PO Last administered on 11/30/16 20:31; Admin Dose 20 MG; Start 11/24/16 at 21:00 Acetaminophen/ Hydrocodone Bitart ([place] (10/325)) 1 tab Q6H PRN PO PAIN Last administered on 11/26/16 17:13; Admin Dose 1 TAB; Start 11/24/16 at 23:00 Nitroglycerin (Nitroglycerin (Sl Tab) 0.4 Mg) 1 tab [id number] PRN SL CHEST PAIN ; Start 11/24/16 at 23:00 Diagnostic Test (Pha) (Accu-Chek) 1 ea 02 XX Last administered on 12/01/16 02: 06; Admin Dose 1 EA; Start 11/25/16 at 02:00 Miscellaneous Information 1 ea NOTE XX ; Start 11/24/16 at 23:00 Glucose (Glutose) 15 gm Q15M PRN PO DECREASED GLUCOSE; Start 11/24/16 at 23:00 Glucose (Glutose) 22.5 gm Q15M PRN PO DECREASED GLUCOSE; Start 11/24/16 at 23: 00 Dextrose (D50w Syringe) 25 ml Q15M PRN IV DECREASED GLUCOSE; Start 11/24/16 at 23:00 Dextrose (D50w Syringe) 50 ml Q15M PRN IV DECREASED GLUCOSE; Start 11/24/16 at 23:00 Glucagon (Glucagen) 1 mg Q15M PRN IM DECREASED GLUCOSE; Start 11/24/16 at 23:00 Glucose (Glutose) 15 gm Q15M PRN BUCCAL DECREASED GLUCOSE; Start 11/24/16 at 23 :00 Hydralazine HCl (Apresoline) 25 mg TID PO Last administered on 12/01/16 13:29 ; Admin Dose 25 MG; Start 11/24/16 at 22:48 Gabapentin (Neurontin) 300 mg DAILY PO Last administered on 12/01/16 08:52; Admin Dose 300 MG; Start 11/25/16 at 09:00 Hydrochlorothiazide (Hydrochlorothiazide) 12.5 mg DAILY PO Last administered on 12/01/16 08:52; Admin Dose 12.5 MG; Start 11/27/16 at 09:00 Hydromorphone HCl (Dilaudid) 1.5 mg Q4H PRN IV SEVERE PAIN LEVEL 7-10 Last administered on 11/28/16 20:06; Admin Dose 1.5 MG; Start 11/26/16 at 10:00 Acetaminophen/ Butalbital/ Caffeine 1 tab 1 tab Q4H PRN PO HEADACHE PAIN Last administered on 12/01/16 08:52; Admin Dose 1 TAB; Start 11/28/16 at 11:00 Ceftriaxone Sodium (Rocephin) 50 ml @ 100 mls/hr Q24H IVPB Last administered on 12/01/16 17:47; Admin Dose 100 MLS/HR; Start 11/29/16 at 17:00 Hydromorphone HCl (Dilaudid) 0.5 mg Q4H PRN IV SEVERE PAIN LEVEL 7-10; Start at 18:00 Lisinopril (Zestril) 5 mg DAILY PO Last administered on 12/01/16 08:52; Admin Dose 5 MG; Start 12/01/16 at 09:00 Insulin Glargine (Lantus) 70 unit QHS SC ; Start 12/01/16 at 21:00 TALITA DICKENS MD Dec 01, 2016 18:28
[2016-12-01 19:50] VITALS: BP 144/66; RESP 20
[2016-12-01] MEDS ORDERED: INSULIN GLARGINE [LANtus] 3 ML PEN SC SCH (21:00)
[2016-12-01] MEDS: FAMOTIDINE 20 MG TAB PO SCH (21:01)
[2016-12-02 01:37] VITALS: BP 131/69; RESP 19
[2016-12-02] MEDS: ACCU-CHEK XX SCH (02:00)
[2016-12-02 05:25] LABS: BASOPHILS % 0.3 % (0.0-2.0); EOSINOPHILS # 0.2 10^3/ul (0.0-0.5); EOSINOPHILS % 2.9 % (0.0-7.0); HEMATOCRIT 33.7 % (42.0-52.0); HEMOGLOBIN 10.9 g/dl (14.0-18.0); LYMPHOCYTES # 2.6 10^3/ul (0.8-2.9); LYMPHOCYTES % 34.2 % (15.0-51.0); MEAN CORPUSCULAR HEMOGLOBIN 27.3 pg (29.0-33.0); MEAN CORPUSCULAR HGB CONC 32.3 g/dl (32.0-37.0); MEAN CORPUSCULAR VOLUME 84.3 fl (82.0-101.0); MEAN PLATELET VOLUME 9.9 fl (7.4-10.4); MONOCYTE # 0.5 10^3/ul (0.3-0.9); MONOCYTES % 6.7 % (0.0-11.0); NEUTROPHILS % 53.5 % (39.0-77.0); PLATELET COUNT 313 10^3/UL (140-415); RED CELL DISTRIBUTION WIDTH 12.7 % (11.5-14.5); WHITE BLOOD COUNT 7.5 10^3/ul (4.8-10.8)
[2016-12-02 05:48] LABS: CALCIUM 8.8 mg/dl (8.4-10.2); CREATININE 1.42 mg/dl (0.61-1.24); MAGNESIUM 1.8 mg/dl (1.7-2.5); PHOSPHORUS 3.6 mg/dl (2.5-4.9); POTASSIUM 4.1 mmol/L (3.5-5.1)
[2016-12-02 08:08] VITALS: BP 132/65; RESP 16
[2016-12-02] MEDS: LISINOPRIL 5 MG TAB PO SCH (08:29)
[2016-12-02] MEDS: HYDROCHLOROTHIAZIDE 12.5 MG CAP PO SCH (08:29)
[2016-12-02] MEDS: GABAPENTIN 300 MG CAP PO SCH (08:29)
[2016-12-02] MEDS: ACET/BUTAL/CAFF TAB PO PRN (08:32)
[2016-12-02] MEDS: INSULIN ASPART [NOVOLOG] 3 ML PEN SC SCH ×6 (08:36→21:43)
--- NOTE | 2016-12-02 12:40 | CONS ---
Date/Time of Note Date/Time of Note DATE: 12/02/16 TIME: 12:40 Assessment/Plan Assessment/Plan Chief Complaint/Hosp Course 61 M ith PMHX of HTN, DM admitted with scrotal abscess s/p I & D, ID following pt was admitted with Cr 1.95- improved to 1.33 and again trended up to Cr 1.6- pt has been on IV abx, which had been renally dosed and renal has been consulted for Acute kidney injury, rule out CKD Problems: Additional Assessment/Plan 1. 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 Low proteinuric CKD due to diabetic nephropathy 2. Scortal abscess s/p I & D 3. SCortal cellultiis 4. H/o HTN 5. H/o DM II poorly controlled with HBA1c 11.5 Plan: Continue Current iV abx, Renally dose all abx, ID following Cr improved to 1.44 with 1 liter NS, will give another 1 liter NS today uric 7.9- normal, CK total normal REnal US reviewed, pt Kindey size is low normal with normal echogenicity c/w early medical renal disease, no hydronephrosis will follow up manager knowledge instructed to get authorizatin to see Dr.Kalpesh Dickens in Outpatient renal clinic for CKD III, s/p acute renal failure, follow up on Cr and Labs outpatient Consultation Date/Type/Reason Admit Date/Time Nov 24, 2016 at 19:08 Initial Consult Date 11/30/16 Type of Consultation: NEPHROLOGY Referring Provider: NIHARIKA DORADO MD 24 HR Interval Summary Free Text/Dictation Cr slightly improved to 1.44 with IVF hydration Exam/Review of Systems Vital Signs Vitals Vital Signs Date Time Temp Pulse Resp B/P Pulse Ox O2 Delivery O2 Flow Rate FiO2 12/02/16 08:08 98.0 53 16 132/65 96 Intake and Output 12/01/16 12/01/16 12/02/16 15:00 23:00 07:00 Intake Total 1110 ml 600 ml Output Total 700 ml Balance 410 ml 600 ml Exam Constitutional: alert Respiratory: clear to auscultation, diminished breath sounds, normal air movement Cardiovascular: nl pulses, regular rate and rhythm Gastrointestinal: nl liver, spleen, non-tender, soft Genitourinary - Male: other (Scrotal support with dressing + ) Musculoskeletal: nl extremities to inspection, nl gait and stance Extremities: normal pulses 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, nl mental status, nl speech, nl strength Results Result Diagram: 12/02/16 04312/02/16 0430 Results 24 hrs Laboratory Tests Test 12/01/16 12:43 12/01/16 17:38 12/01/16 20:51 12/02/16 02:06 Bedside Glucose 255 H 240 H 239 H 242 H Test 12/02/16 04:30 12/02/16 04:31 12/02/16 08:27 Sodium Level 135 Potassium Level 4.1 Chloride Level 101 Carbon Dioxide Level 26 Anion Gap 12 Blood Urea Nitrogen 38 H Creatinine 1.42 H Glucose Level 318 H Calcium Level 8.8 Phosphorus Level 3.6 Magnesium Level 1.8 White Blood Count 7.5 Red Blood Count 4.00 L Hemoglobin 10.9 L Hematocrit 33.7 L Mean Corpuscular Volume 84.3 Mean Corpuscular Hemoglobin 27.3 L Mean Corpuscular Hemoglobin Concent 32.3 Red Cell Distribution Width 12.7 Platelet Count 313 Mean Platelet Volume 9.9 Neutrophils % 53.5 Lymphocytes % 34.2 Monocytes % 6.7 Eosinophils % 2.9 Basophils % 0.3 Nucleated Red Blood Cells % 0.0 Neutrophils # 4.0 Lymphocytes # 2.6 Monocytes # 0.5 Eosinophils # 0.2 Basophils # 0.0 Nucleated Red Blood Cells # 0.0 Bedside Glucose 235 H Medications Medications Current Medications Ondansetron HCl (Zofran Inj) 4 mg Q6H PRN IV NAUSEA AND/OR VOMITING Last administered on 11/30/16 10:48; Admin Dose 4 MG; Start 11/24/16 at 20:30 Acetaminophen (Tylenol Tab) 650 mg Q6H PRN PO PAIN LEVEL 1-3 OR FEVER Last administered on 11/28/16 18:36; Admin Dose 650 MG; Start 11/24/16 at 20:30 Morphine Sulfate (morphine) 2 mg Q4H PRN IV PAIN LEVEL 7-10 Last administered on 11/25/16 12:16; Admin Dose 2 MG; Start 11/24/16 at 20:30 Famotidine (Pepcid) 20 mg Q24H PO Last administered on 12/01/16 21:01; Admin Dose 20 MG; Start 11/24/16 at 21:00 Acetaminophen/ Hydrocodone Bitart ([place] (10/325)) 1 tab Q6H PRN PO PAIN Last administered on 11/26/16 17:13; Admin Dose 1 TAB; Start 11/24/16 at 23:00 Nitroglycerin (Nitroglycerin (Sl Tab) 0.4 Mg) 1 tab [id number] PRN SL CHEST PAIN ; Start 11/24/16 at 23:00 Diagnostic Test (Pha) (Accu-Chek) 1 ea 02 XX Last administered on 12/02/16 02: 00; Admin Dose 1 EA; Start 11/25/16 at 02:00 Miscellaneous Information 1 ea NOTE XX ; Start 11/24/16 at 23:00 Glucose (Glutose) 15 gm Q15M PRN PO DECREASED GLUCOSE; Start 11/24/16 at 23:00 Glucose (Glutose) 22.5 gm Q15M PRN PO DECREASED GLUCOSE; Start 11/24/16 at 23: 00 Dextrose (D50w Syringe) 25 ml Q15M PRN IV DECREASED GLUCOSE; Start 11/24/16 at 23:00 Dextrose (D50w Syringe) 50 ml Q15M PRN IV DECREASED GLUCOSE; Start 11/24/16 at 23:00 Glucagon (Glucagen) 1 mg Q15M PRN IM DECREASED GLUCOSE; Start 11/24/16 at 23:00 Glucose (Glutose) 15 gm Q15M PRN BUCCAL DECREASED GLUCOSE; Start 11/24/16 at 23 :00 Hydralazine HCl (Apresoline) 25 mg TID PO Last administered on 12/02/16 08:28 ; Admin Dose 25 MG; Start 11/24/16 at 22:48 Gabapentin (Neurontin) 300 mg DAILY PO Last administered on 12/02/16 08:29; Admin Dose 300 MG; Start 11/25/16 at 09:00 Hydrochlorothiazide (Hydrochlorothiazide) 12.5 mg DAILY PO Last administered on 12/02/16 08:29; Admin Dose 12.5 MG; Start 11/27/16 at 09:00 Hydromorphone HCl (Dilaudid) 1.5 mg Q4H PRN IV SEVERE PAIN LEVEL 7-10 Last administered on 11/28/16 20:06; Admin Dose 1.5 MG; Start 11/26/16 at 10:00 Acetaminophen/ Butalbital/ Caffeine 1 tab 1 tab Q4H PRN PO HEADACHE PAIN Last administered on 12/02/16 08:32; Admin Dose 1 TAB; Start 11/28/16 at 11:00 Ceftriaxone Sodium (Rocephin) 50 ml @ 100 mls/hr Q24H IVPB Last administered on 12/01/16 17:47; Admin Dose 100 MLS/HR; Start 11/29/16 at 17:00 Hydromorphone HCl (Dilaudid) 0.5 mg Q4H PRN IV SEVERE PAIN LEVEL 7-10; Start at 18:00 Lisinopril (Zestril) 5 mg DAILY PO Last administered on 12/02/16 08:29; Admin Dose 5 MG; Start 12/01/16 at 09:00 Insulin Glargine (Lantus) 23 unit DAILY@08 SC ; Start 12/03/16 at 08:00 TALITA DICKENS MD Dec 02, 2016 12:40
[2016-12-02 13:00] VITALS: BP 149/70; PULSE 70
--- NOTE | 2016-12-02 13:32 | CONS ---
Date/Time of Note Date/Time of Note DATE: 12/02/16 TIME: 13:31 Assessment/Plan Assessment/Plan Chief Complaint/Hosp Course SUBJECTIVE DATA: Patient is alert feels good denies pain no fevers WBC 7.5 H&H 10.9 and 33.7 platelets 313, no shift BUN 38 creatinine 1.42 ANTIMICROBIALS: The patient is on Rocephin. MICROBIOLOGY: Wound culture grew strep agalactiae group B. PHYSICAL EXAMINATION: GENERAL: Well developed, elderly man, in no distress. HEENT: Head atraumatic, normocephalic. Sclerae anicteric. Buccal mucosa pink. NECK: Supple. CHEST: Chest rise symmetrical. Breath sounds clear. HEART: S1, S2. ABDOMEN: Soft, bowel sounds present. EXTREMITIES: No cyanosis. ASSESSMENT: 1. Systemic inflammatory response syndrome. 2. Status post scrotal abscess drainage and debridement of devitalized skin and subcutaneous tissue on November 27, [address] Morgan. 3. Acute on chronic kidney disease. 4. Diabetes. 5. Hypertension. PLAN: The patient remains stable, will repeat wound cx, continue antibiotics, local wound care. Follow Urology recommendations. Anticipate dc on oral abx Problems: Consultation Date/Type/Reason Admit Date/Time Nov 24, 2016 at 19:08 Initial Consult Date 11/30/16 Type of Consultation: id Referring Provider: NIHARIKA DORADO MD Exam/Review of Systems Vital Signs Vitals Vital Signs Date Time Temp Pulse Resp B/P Pulse Ox O2 Delivery O2 Flow Rate FiO2 12/02/16 13:00 70 149/70 12/02/16 08:08 98.0 16 96 Intake and Output 12/01/16 12/01/16 12/02/16 15:00 23:00 07:00 Intake Total 1110 ml 600 ml Output Total 700 ml Balance 410 ml 600 ml Results Result Diagram: 12/02/16 0431 12/02/16 0430 Results 24 hrs Laboratory Tests Test 12/01/16 17:38 12/01/16 20:51 12/02/16 02:06 12/02/16 04:30 Bedside Glucose 240 H 239 H 242 H Sodium Level 135 Potassium Level 4.1 Chloride Level 101 Carbon Dioxide Level 26 Anion Gap 12 Blood Urea Nitrogen 38 H Creatinine 1.42 H Glucose Level 318 H Calcium Level 8.8 Phosphorus Level 3.6 Magnesium Level 1.8 Test 12/02/16 04:31 12/02/16 08:27 12/02/16 12:50 White Blood Count 7.5 Red Blood Count 4.00 L Hemoglobin 10.9 L Hematocrit 33.7 L Mean Corpuscular Volume 84.3 Mean Corpuscular Hemoglobin 27.3 L Mean Corpuscular Hemoglobin Concent 32.3 Red Cell Distribution Width 12.7 Platelet Count 313 Mean Platelet Volume 9.9 Neutrophils % 53.5 Lymphocytes % 34.2 Monocytes % 6.7 Eosinophils % 2.9 Basophils % 0.3 Nucleated Red Blood Cells % 0.0 Neutrophils # 4.0 Lymphocytes # 2.6 Monocytes # 0.5 Eosinophils # 0.2 Basophils # 0.0 Nucleated Red Blood Cells # 0.0 Bedside Glucose 235 H 268 H Medications Medications Current Medications Ondansetron HCl (Zofran Inj) 4 mg Q6H PRN IV NAUSEA AND/OR VOMITING Last administered on 11/30/16 10:48; Admin Dose 4 MG; Start 11/24/16 at 20:30 Acetaminophen (Tylenol Tab) 650 mg Q6H PRN PO PAIN LEVEL 1-3 OR FEVER Last administered on 11/28/16 18:36; Admin Dose 650 MG; Start 11/24/16 at 20:30 Morphine Sulfate (morphine) 2 mg Q4H PRN IV PAIN LEVEL 7-10 Last administered on 11/25/16 12:16; Admin Dose 2 MG; Start 11/24/16 at 20:30 Famotidine (Pepcid) 20 mg Q24H PO Last administered on 12/01/16 21:01; Admin Dose 20 MG; Start 11/24/16 at 21:00 Acetaminophen/ Hydrocodone Bitart ([place] (10/325)) 1 tab Q6H PRN PO PAIN Last administered on 11/26/16 17:13; Admin Dose 1 TAB; Start 11/24/16 at 23:00 Nitroglycerin (Nitroglycerin (Sl Tab) 0.4 Mg) 1 tab [id number] PRN SL CHEST PAIN ; Start 11/24/16 at 23:00 Diagnostic Test (Pha) (Accu-Chek) 1 ea 02 XX Last administered on 12/02/16 02: 00; Admin Dose 1 EA; Start 11/25/16 at 02:00 Miscellaneous Information 1 ea NOTE XX ; Start 11/24/16 at 23:00 Glucose (Glutose) 15 gm Q15M PRN PO DECREASED GLUCOSE; Start 11/24/16 at 23:00 Glucose (Glutose) 22.5 gm Q15M PRN PO DECREASED GLUCOSE; Start 11/24/16 at 23: 00 Dextrose (D50w Syringe) 25 ml Q15M PRN IV DECREASED GLUCOSE; Start 11/24/16 at 23:00 Dextrose (D50w Syringe) 50 ml Q15M PRN IV DECREASED GLUCOSE; Start 11/24/16 at 23:00 Glucagon (Glucagen) 1 mg Q15M PRN IM DECREASED GLUCOSE; Start 11/24/16 at 23:00 Glucose (Glutose) 15 gm Q15M PRN BUCCAL DECREASED GLUCOSE; Start 11/24/16 at 23 :00 Hydralazine HCl (Apresoline) 25 mg TID PO Last administered on 12/02/16 12:55 ; Admin Dose 25 MG; Start 11/24/16 at 22:48 Gabapentin (Neurontin) 300 mg DAILY PO Last administered on 12/02/16 08:29; Admin Dose 300 MG; Start 11/25/16 at 09:00 Hydrochlorothiazide (Hydrochlorothiazide) 12.5 mg DAILY PO Last administered on 12/02/16 08:29; Admin Dose 12.5 MG; Start 11/27/16 at 09:00 Hydromorphone HCl (Dilaudid) 1.5 mg Q4H PRN IV SEVERE PAIN LEVEL 7-10 Last administered on 11/28/16 20:06; Admin Dose 1.5 MG; Start 11/26/16 at 10:00 Acetaminophen/ Butalbital/ Caffeine 1 tab 1 tab Q4H PRN PO HEADACHE PAIN Last administered on 12/02/16 08:32; Admin Dose 1 TAB; Start 11/28/16 at 11:00 Ceftriaxone Sodium (Rocephin) 50 ml @ 100 mls/hr Q24H IVPB Last administered on 12/01/16 17:47; Admin Dose 100 MLS/HR; Start 11/29/16 at 17:00 Hydromorphone HCl (Dilaudid) 0.5 mg Q4H PRN IV SEVERE PAIN LEVEL 7-10; Start at 18:00 Lisinopril (Zestril) 5 mg DAILY PO Last administered on 12/02/16t 08:29; Admin Dose 5 MG; Start 12/01/16 at 09:00 Insulin Glargine (Lantus) 23 unit DAILY@08 SC ; Start 12/03/16 at 08:00 BELL WEEMS NP Dec 02, 2016 13:32
--- NOTE | 2016-12-02 13:55 | PN ---
Date/Time of Note Date/Time of Note DATE: 12/02/16 TIME: 13:51 Assessment/Plan VTE Prophylaxis VTE Prophylaxis Intervention: ambulation Lines/Catheters IV [facility] Urinary Cath still in place: No Assessment/Plan Chief Complaint/Hosp Course 1. Scrotal abscess s/p drainage - Urology on board and recommendations appreciated. drain removed, wound packed and instructions for wet to dry dressings TID - Currently growing Strep Agalactae and ID on board. Recommendations appreciated - Patient currently on ceftriaxone and tolerating well. No signs of reaction and will continue monitoring - WBC normalized - urology ok with DC with wound care, however mild erythema around wound, discussed with ID, will watch one more night and observe wound as wound is in a high infection risk area before DC. Also getting wound care set up with case management. 2. Scrotal swelling - resolved 3. Chest pain- resolved - Appears to occur when he feels testicular pain. Troponins negative x3 4. Diabetes mellitus - lantus at night, insulin with meals plus sliding scale. - A1c 11.5 - Appreciate nurse informatics educator recommendations. 5. Hypertension - BP stable 6. CKD - Renal US negative - Will renally dose medications at this time. Will avoid nephrotoxic agents - Nephrology consulted and appreciate recommendations. Urine studies ordered - Will continue to monitor DISPO: stay overnight, re-examine wound tomorrow if erythema increases, risk of gangrene. Problems: Subjective 24 Hr Interval Summary Free Text/Dictation walking around the unit, no acute complaints. Exam/Review of Systems Vital Signs Vitals Vital Signs Date Time Temp Pulse Resp B/P Pulse Ox O2 Delivery O2 Flow Rate FiO2 12/02/16 13:00 70 149/70 12/02/16 08:08 98.0 16 96 Intake and Output 12/01/16 12/01/16 12/02/16 15:00 23:00 07:00 Intake Total 1110 ml 600 ml Output Total 700 ml Balance 410 ml 600 ml Exam General: fatigued but no acute distress Chest: Nontender Lungs: Clear to auscultation bilaterally no crackles rales or wheezing CVS: Regular rhythm and rate. No murmurs appreciated : Dry skin/hardened around wound of testicle, wound with no discharge or drainage. Mild tenderness to palpation. Extremities: Normal to inspection, no edema no cyanosis Results Result Diagram: 12/02/16 0431 12/02/16 0430 Results 24 hrs Laboratory Tests Test 12/01/16 17:38 12/01/16 20:51 12/02/16 02:06 12/02/16 04:30 Bedside Glucose 240 H 239 H 242 H Sodium Level 135 Potassium Level 4.1 Chloride Level 101 Carbon Dioxide Level 26 Anion Gap 12 Blood Urea Nitrogen 38 H Creatinine 1.42 H Glucose Level 318 H Calcium Level 8.8 Phosphorus Level 3.6 Magnesium Level 1.8 Test 12/02/16 04:31 12/02/16 08:27 12/02/16 12:50 White Blood Count 7.5 Red Blood Count 4.00 L Hemoglobin 10.9 L Hematocrit 33.7 L Mean Corpuscular Volume 84.3 Mean Corpuscular Hemoglobin 27.3 L Mean Corpuscular Hemoglobin Concent 32.3 Red Cell Distribution Width 12.7 Platelet Count 313 Mean Platelet Volume 9.9 Neutrophils % 53.5 Lymphocytes % 34.2 Monocytes % 6.7 Eosinophils % 2.9 Basophils % 0.3 Nucleated Red Blood Cells % 0.0 Neutrophils # 4.0 Lymphocytes # 2.6 Monocytes # 0.5 Eosinophils # 0.2 Basophils # 0.0 Nucleated Red Blood Cells # 0.0 Bedside Glucose 235 H 268 H Medications Medications Current Medications Ondansetron HCl (Zofran Inj) 4 mg Q6H PRN IV NAUSEA AND/OR VOMITING Last administered on 11/30/16 10:48; Admin Dose 4 MG; Start 11/24/16 at 20:30 Acetaminophen (Tylenol Tab) 650 mg Q6H PRN PO PAIN LEVEL 1-3 OR FEVER Last administered on 11/28/16 18:36; Admin Dose 650 MG; Start 11/24/16 at 20:30 Morphine Sulfate (morphine) 2 mg Q4H PRN IV PAIN LEVEL 7-10 Last administered on 11/25/16 12:16; Admin Dose 2 MG; Start 11/24/16 at 20:30 Famotidine (Pepcid) 20 mg Q24H PO Last administered on 12/01/16 21:01; Admin Dose 20 MG; Start 11/24/16 at 21:00 Acetaminophen/ Hydrocodone Bitart ([place] (10/325)) 1 tab Q6H PRN PO PAIN Last administered on 11/26/16 17:13; Admin Dose 1 TAB; Start 11/24/16 at 23:00 Nitroglycerin (Nitroglycerin (Sl Tab) 0.4 Mg) 1 tab [id number] PRN SL CHEST PAIN ; Start 11/24/16 at 23:00 Diagnostic Test (Pha) (Accu-Chek) 1 ea 02 XX Last administered on 12/02/16 02: 00; Admin Dose 1 EA; Start 11/25/16 at 02:00 Miscellaneous Information 1 ea NOTE XX ; Start 11/24/16 at 23:00 Glucose (Glutose) 15 gm Q15M PRN PO DECREASED GLUCOSE; Start 11/24/16 at 23:00 Glucose (Glutose) 22.5 gm Q15M PRN PO DECREASED GLUCOSE; Start 11/24/16 at 23: 00 Dextrose (D50w Syringe) 25 ml Q15M PRN IV DECREASED GLUCOSE; Start 11/24/16 at 23:00 Dextrose (D50w Syringe) 50 ml Q15M PRN IV DECREASED GLUCOSE; Start 11/24/16 at 23:00 Glucagon (Glucagen) 1 mg Q15M PRN IM DECREASED GLUCOSE; Start 11/24/16 at 23:00 Glucose (Glutose) 15 gm Q15M PRN BUCCAL DECREASED GLUCOSE; Start 11/24/16 at 23 :00 Hydralazine HCl (Apresoline) 25 mg TID PO Last administered on 12/02/16 12:55 ; Admin Dose 25 MG; Start 11/24/16 at 22:48 Gabapentin (Neurontin) 300 mg DAILY PO Last administered on 12/02/16 08:29; Admin Dose 300 MG; Start 11/25/16 at 09:00 Hydrochlorothiazide (Hydrochlorothiazide) 12.5 mg DAILY PO Last administered on 12/02/16 08:29; Admin Dose 12.5 MG; Start 11/27/16 at 09:00 Hydromorphone HCl (Dilaudid) 1.5 mg Q4H PRN IV SEVERE PAIN LEVEL 7-10 Last administered on 11/28/16 20:06; Admin Dose 1.5 MG; Start 11/26/16 at 10:00 Acetaminophen/ Butalbital/ Caffeine 1 tab 1 tab Q4H PRN PO HEADACHE PAIN Last administered on 12/02/16 08:32; Admin Dose 1 TAB; Start 11/28/16 at 11:00 Ceftriaxone Sodium (Rocephin) 50 ml @ 100 mls/hr Q24H IVPB Last administered on 12/01/16 17:47; Admin Dose 100 MLS/HR; Start 11/29/16 at 17:00 Hydromorphone HCl (Dilaudid) 0.5 mg Q4H PRN IV SEVERE PAIN LEVEL 7-10; Start at 18:00 Lisinopril (Zestril) 5 mg DAILY PO Last administered on 12/02/16 08:29; Admin Dose 5 MG; Start 12/01/16 at 09:00 Insulin Glargine (Lantus) 23 unit DAILY@08 SC ; Start 12/03/16 at 08:00 ALYCIA DANIEL Dec 02, 2016 13:55
[2016-12-02] MEDS: SOD CHLORIDE 0.9% 1,000 ML IV SCH (15:19)
[2016-12-02 16:09] VITALS: BP 130/70; RESP 18
[2016-12-02] MEDS: CEFTRIAXONE 1 GM/50 ML (PMX) 50 ML IVPB SCH (17:17)
[2016-12-02] MEDS ORDERED: INSULIN ASPART [NOVOLOG] 3 ML PEN SC SCH ×2 (17:55)
[2016-12-02 19:23] VITALS: BP 123/63; RESP 18
[2016-12-02] MEDS ORDERED: INSULIN GLARGINE [LANtus] 3 ML PEN SC SCH (21:00)
[2016-12-02] MEDS: FAMOTIDINE 20 MG TAB PO SCH (21:38)
[2016-12-03 01:14] VITALS: BP 135/65; RESP 18
[2016-12-03] MEDS: ACCU-CHEK XX SCH (02:00)
[2016-12-03] MEDS ORDERED: INSULIN ASPART [NOVOLOG] 3 ML PEN SC ONE (02:38)
[2016-12-03] MEDS: ACET/BUTAL/CAFF TAB PO PRN ×3 (05:12→16:50)
[2016-12-03 05:26] LABS: BASOPHILS % 0.4 % (0.0-2.0); EOSINOPHILS # 0.2 10^3/ul (0.0-0.5); EOSINOPHILS % 3.1 % (0.0-7.0); HEMATOCRIT 33.3 % (42.0-52.0); HEMOGLOBIN 10.7 g/dl (14.0-18.0); LYMPHOCYTES # 3.1 10^3/ul (0.8-2.9); LYMPHOCYTES % 38.9 % (15.0-51.0); MEAN CORPUSCULAR HEMOGLOBIN 26.8 pg (29.0-33.0); MEAN CORPUSCULAR HGB CONC 32.1 g/dl (32.0-37.0); MEAN CORPUSCULAR VOLUME 83.5 fl (82.0-101.0); MEAN PLATELET VOLUME 9.9 fl (7.4-10.4); MONOCYTE # 0.5 10^3/ul (0.3-0.9); MONOCYTES % 6.6 % (0.0-11.0); NEUTROPHIL # 3.8 10^3/ul (1.6-7.5); NEUTROPHILS % 48.6 % (39.0-77.0); PLATELET COUNT 312 10^3/UL (140-415); RED BLOOD COUNT 3.99 10^6/ul (4.70-6.10); RED CELL DISTRIBUTION WIDTH 13.1 % (11.5-14.5); WHITE BLOOD COUNT 7.8 10^3/ul (4.8-10.8)
[2016-12-03] MEDS: SOD CHLORIDE 0.9% 1,000 ML IV SCH ×2 (05:48→20:06)
[2016-12-03 06:04] LABS: CALCIUM 8.9 mg/dl (8.4-10.2); CREATININE 1.31 mg/dl (0.61-1.24); MAGNESIUM 1.9 mg/dl (1.7-2.5); PHOSPHORUS 2.9 mg/dl (2.5-4.9); POTASSIUM 3.9 mmol/L (3.5-5.1)
[2016-12-03] MEDS: INSULIN ASPART [NOVOLOG] 3 ML PEN SC SCH ×7 (07:50→20:35)
[2016-12-03] MEDS ORDERED: INSULIN GLARGINE [LANtus] 3 ML PEN SC SCH ×2 (08:00→21:00)
[2016-12-03 08:03] VITALS: BP 146/70; RESP 19
[2016-12-03] MEDS: GABAPENTIN 300 MG CAP PO SCH (08:23)
[2016-12-03] MEDS: HYDROCHLOROTHIAZIDE 12.5 MG CAP PO SCH (08:24)
[2016-12-03] MEDS: LISINOPRIL 5 MG TAB PO SCH (08:25)
--- NOTE | 2016-12-03 12:19 | CONS ---
Date/Time of Note Date/Time of Note DATE: 12/03/16 TIME: 12:16 Assessment/Plan Assessment/Plan Chief Complaint/Hosp Course SUBJECTIVE DATA: Patient is alert feels good denies pain no fevers WBC 7.8 H&H 10.7 and 33.3 platelets 312 BUN 38 creatinine 1.31 Repeat wound cultures pending ANTIMICROBIALS: The patient is on Rocephin. MICROBIOLOGY: Wound culture grew strep agalactiae group B a pending nd and coag negative staph species, both susceptible to Keflex PHYSICAL EXAMINATION: GENERAL: Well developed, elderly man, in no distress. HEENT: Head atraumatic, normocephalic. Sclerae anicteric. Buccal mucosa pink. NECK: Supple. CHEST: Chest rise symmetrical. Breath sounds clear. HEART: S1, S2. ABDOMEN: Soft, bowel sounds present. EXTREMITIES: No cyanosis. ASSESSMENT: 1. Systemic inflammatory response syndrome. 2. Status post scrotal abscess drainage and debridement of devitalized skin and subcutaneous tissue on November 27, [address] Morgan. 3. Acute on chronic kidney disease. 4. Diabetes. 5. Hypertension. PLAN: The patient remains stable, pending repeat wound cx, continue antibiotics , local wound care. Anticipate dc on oral Keflex Problems: Consultation Date/Type/Reason Admit Date/Time Nov 24, 2016 at 19:08 Initial Consult Date 11/30/16 Type of Consultation: id Referring Provider: NIHARIKA DORADO MD Exam/Review of Systems Vital Signs Vitals Vital Signs Date Time Temp Pulse Resp B/P Pulse Ox O2 Delivery O2 Flow Rate FiO2 12/03/16 08:03 98.0 61 19 146/70 98 Intake and Output 12/02/16 12/02/16 12/03/16 15:00 23:00 07:00 Intake Total 1230 ml 1200 ml Output Total 1200 ml Balance 30 ml 1200 ml Results Result Diagram: 12/03/16 0433 12/03/16 0433 Results 24 hrs Laboratory Tests Test 12/02/16 12:50 12/02/16 17:41 12/02/16 21:37 12/03/16 02:15 Bedside Glucose 268 H 178 241 H 307 H Test 12/03/16 02:55 12/03/16 04:33 12/03/16 07:23 12/03/16 08:22 Bedside Glucose 253 H 120 White Blood Count 7.8 Red Blood Count 3.99 L Hemoglobin 10.7 L Hematocrit 33.3 L Mean Corpuscular Volume 83.5 Mean Corpuscular Hemoglobin 26.8 L Mean Corpuscular Hemoglobin Concent 32.1 Red Cell Distribution Width 13.1 Platelet Count 312 Mean Platelet Volume 9.9 Neutrophils % 48.6 Lymphocytes % 38.9 Monocytes % 6.6 Eosinophils % 3.1 Basophils % 0.4 Nucleated Red Blood Cells % 0.0 Neutrophils # 3.8 Lymphocytes # 3.1 H Monocytes # 0.5 Eosinophils # 0.2 Basophils # 0.0 Nucleated Red Blood Cells # 0.0 Sodium Level 139 Potassium Level 3.9 Chloride Level 106 Carbon Dioxide Level 26 Anion Gap 11 Blood Urea Nitrogen 38 H Creatinine 1.31 H Glucose Level 193 # Calcium Level 8.9 Phosphorus Level 2.9 Magnesium Level 1.9 Lab Scanned Report REFERENCE LAB Medications Medications Current Medications Ondansetron HCl (Zofran Inj) 4 mg Q6H PRN IV NAUSEA AND/OR VOMITING Last administered on 11/30/16 10:48; Admin Dose 4 MG; Start 11/24/16 at 20:30 Acetaminophen (Tylenol Tab) 650 mg Q6H PRN PO PAIN LEVEL 1-3 OR FEVER Last administered on 11/28/16 18:36; Admin Dose 650 MG; Start 11/24/16 at 20:30 Morphine Sulfate (morphine) 2 mg Q4H PRN IV PAIN LEVEL 7-10 Last administered on 11/25/16 12:16; Admin Dose 2 MG; Start 11/24/16 at 20:30 Famotidine (Pepcid) 20 mg Q24H PO Last administered on 12/02/16 21:38; Admin Dose 20 MG; Start 11/24/16 at 21:00 Acetaminophen/ Hydrocodone Bitart ([place] (10/325)) 1 tab Q6H PRN PO PAIN Last administered on 11/26/16 17:13; Admin Dose 1 TAB; Start 11/24/16 at 23:00 Nitroglycerin (Nitroglycerin (Sl Tab) 0.4 Mg) 1 tab [id number] PRN SL CHEST PAIN ; Start 11/24/16 at 23:00 Diagnostic Test (Pha) (Accu-Chek) 1 ea 02 XX Last administered on 12/02/16 02: 00; Admin Dose 1 EA; Start 11/25/16 at 02:00 Miscellaneous Information 1 ea NOTE XX ; Start 11/24/16 at 23:00 Glucose (Glutose) 15 gm Q15M PRN PO DECREASED GLUCOSE; Start 11/24/16 at 23:00 Glucose (Glutose) 22.5 gm Q15M PRN PO DECREASED GLUCOSE; Start 11/24/16 at 23: 00 Dextrose (D50w Syringe) 25 ml Q15M PRN IV DECREASED GLUCOSE; Start 11/24/16 at 23:00 Dextrose (D50w Syringe) 50 ml Q15M PRN IV DECREASED GLUCOSE; Start 11/24/16 at 23:00 Glucagon (Glucagen) 1 mg Q15M PRN IM DECREASED GLUCOSE; Start 11/24/16 at 23:00 Glucose (Glutose) 15 gm Q15M PRN BUCCAL DECREASED GLUCOSE; Start 11/24/16 at 23 :00 Hydralazine HCl (Apresoline) 25 mg TID PO Last administered on 12/03/16 08:24 ; Admin Dose 25 MG; Start 11/24/16 at 22:48 Gabapentin (Neurontin) 300 mg DAILY PO Last administered on 12/03/16 08:23; Admin Dose 300 MG; Start 11/25/16 at 09:00 Hydrochlorothiazide (Hydrochlorothiazide) 12.5 mg DAILY PO Last administered on 12/03/16 08:24; Admin Dose 12.5 MG; Start 11/27/16 at 09:00 Hydromorphone HCl (Dilaudid) 1.5 mg Q4H PRN IV SEVERE PAIN LEVEL 7-10 Last administered on 11/28/16 20:06; Admin Dose 1.5 MG; Start 11/26/16 at 10:00 Acetaminophen/ Butalbital/ Caffeine 1 tab 1 tab Q4H PRN PO HEADACHE PAIN Last administered on 12/03/16 05:12; Admin Dose 1 TAB; Start 11/28/16 at 11:00 Ceftriaxone Sodium (Rocephin) 50 ml @ 100 mls/hr Q24H IVPB Last administered on 12/02/16 17:17; Admin Dose 100 MLS/HR; Start 11/29/16 at 17:00 Hydromorphone HCl (Dilaudid) 0.5 mg Q4H PRN IV SEVERE PAIN LEVEL 7-10; Start at 18:00 Lisinopril 5 mg 5 mg DAILY PO Last administered on 12/03/16 08:25; Admin Dose 5 MG; Start 12/01/16 at 09:00 Sodium Chloride (NS) 1,000 ml @ 70 mls/hr [id number] IV Last administered on 12/02 15:19; Admin Dose 70 MLS/HR; Start 12/02/16 at 15:30 Insulin Glargine (Lantus) 28 unit QPM SC ; Start 12/03/16 at 21:00 BELL WEEMS NP Dec 03, 2016 12:19
[2016-12-03 12:21] VITALS: BP 141/69
--- NOTE | 2016-12-03 15:39 | PN ---
Date/Time of Note Date/Time of Note DATE: 12/03/16 TIME: 15:35 Assessment/Plan VTE Prophylaxis VTE Prophylaxis Intervention: ambulation Lines/Catheters IV [facility] Urinary Cath still in place: No Assessment/Plan Chief Complaint/Hosp Course 1. Scrotal abscess s/p drainage - Urology on board and recommendations appreciated. drain removed, wound packed and instructions for wet to dry dressings TID - Currently growing Strep Agalactae and ID on board. Recommendations appreciated - Patient currently on ceftriaxone and tolerating well. No signs of reaction and will continue monitoring - WBC normalized - urology ok with DC with wound care, however mild erythema has increased overnight and would like to monitor one more night. anticipate DC on kelfex tomorrow. 2. Scrotal swelling - resolved 3. Chest pain- resolved - Appears to occur when he feels testicular pain. Troponins negative x3 4. Diabetes mellitus - lantus at night, insulin with meals plus sliding scale. - A1c 11.5 - Appreciate paraeducator recommendations. 5. Hypertension - BP stable 6. CKD - Renal US negative - Will renally dose medications at this time. Will avoid nephrotoxic agents - Nephrology consulted and appreciate recommendations. - Will continue to monitor, nephrology ok with outpatient follow up DISPO:monitor overnight given increase in erythema, likely DC tomorrow with keflex and home health wound care. Problems: Subjective 24 Hr Interval Summary Free Text/Dictation no increase in pain in testicle, no acute complaints Exam/Review of Systems Vital Signs Vitals Vital Signs Date Time Temp Pulse Resp B/P Pulse Ox O2 Delivery O2 Flow Rate FiO2 12/03/16 12:21 141/69 12/03/16 08:03 98.0 61 19 98 Intake and Output 12/02/16 12/02/16 12/03/16 15:00 23:00 07:00 Intake Total 1230 ml 1200 ml Output Total 1200 ml Balance 30 ml 1200 ml Exam General: laying comfortably in bed, no acute distress Chest: Nontender, regular rate, no obvious murmurs Lungs: Clear to auscultation bilaterally no crackles rales or wheezing CVS: Regular rhythm and rate. No murmurs appreciated : mild induration around wound on scrotum, increased erythema vs previous day. Extremities: Normal to inspection, no edema no cyanosis Results Result Diagram: 12/03/16 0433 12/03/16 0433 Results 24 hrs Laboratory Tests Test 12/02/16 17:41 12/02/16 21:37 12/03/16 02:15 12/03/16 02:55 Bedside Glucose 178 241 H 307 H 253 H Test 12/03/16 04:33 12/03/16 07:23 12/03/16 08:22 12/03/16 12:17 White Blood Count 7.8 Red Blood Count 3.99 L Hemoglobin 10.7 L Hematocrit 33.3 L Mean Corpuscular Volume 83.5 Mean Corpuscular Hemoglobin 26.8 L Mean Corpuscular Hemoglobin Concent 32.1 Red Cell Distribution Width 13.1 Platelet Count 312 Mean Platelet Volume 9.9 Neutrophils % 48.6 Lymphocytes % 38.9 Monocytes % 6.6 Eosinophils % 3.1 Basophils % 0.4 Nucleated Red Blood Cells % 0.0 Neutrophils # 3.8 Lymphocytes # 3.1 H Monocytes # 0.5 Eosinophils # 0.2 Basophils # 0.0 Nucleated Red Blood Cells # 0.0 Sodium Level 139 Potassium Level 3.9 Chloride Level 106 Carbon Dioxide Level 26 Anion Gap 11 Blood Urea Nitrogen 38 H Creatinine 1.31 H Glucose Level 193 # Calcium Level 8.9 Phosphorus Level 2.9 Magnesium Level 1.9 Lab Scanned Report REFERENCE LAB Bedside Glucose 120 188 Medications Medications Current Medications Ondansetron HCl (Zofran Inj) 4 mg Q6H PRN IV NAUSEA AND/OR VOMITING Last administered on 11/30/16 10:48; Admin Dose 4 MG; Start 11/24/16 at 20:30 Acetaminophen (Tylenol Tab) 650 mg Q6H PRN PO PAIN LEVEL 1-3 OR FEVER Last administered on 11/28/16 18:36; Admin Dose 650 MG; Start 11/24/16 at 20:30 Morphine Sulfate (morphine) 2 mg Q4H PRN IV PAIN LEVEL 7-10 Last administered on 11/25/16 12:16; Admin Dose 2 MG; Start 11/24/16 at 20:30 Famotidine (Pepcid) 20 mg Q24H PO Last administered on 12/02/16 21:38; Admin Dose 20 MG; Start 11/24/16 at 21:00 Acetaminophen/ Hydrocodone Bitart ([place] ()) 1 tab Q6H PRN PO PAIN Last administered on 11/26/16 17:13; Admin Dose 1 TAB; Start 11/24/16 at 23:00 Nitroglycerin (Nitroglycerin (Sl Tab) 0.4 Mg) 1 tab [id number] PRN SL CHEST PAIN ; Start 11/24/16 at 23:00 Diagnostic Test (Pha) (Accu-Chek) 1 ea 02 XX Last administered on 12/02/16 02: 00; Admin Dose 1 EA; Start 11/25/16 at 02:00 Miscellaneous Information 1 ea NOTE XX ; Start 11/24/16 at 23:00 Glucose (Glutose) 15 gm Q15M PRN PO DECREASED GLUCOSE; Start 11/24/16 at 23:00 Glucose (Glutose) 22.5 gm Q15M PRN PO DECREASED GLUCOSE; Start 11/24/16 at 23: 00 Dextrose (D50w Syringe) 25 ml Q15M PRN IV DECREASED GLUCOSE; Start 11/24/16 at 23:00 Dextrose (D50w Syringe) 50 ml Q15M PRN IV DECREASED GLUCOSE; Start 11/24/16 at 23:00 Glucagon (Glucagen) 1 mg Q15M PRN IM DECREASED GLUCOSE; Start 11/24/16 at 23:00 Glucose (Glutose) 15 gm Q15M PRN BUCCAL DECREASED GLUCOSE; Start 11/24/16 at 23 :00 Hydralazine HCl (Apresoline) 25 mg TID PO Last administered on 12/03/16 12:20 ; Admin Dose 25 MG; Start 11/24/16 at 22:48 Gabapentin (Neurontin) 300 mg DAILY PO Last administered on 12/03/16 08:23; Admin Dose 300 MG; Start 11/25/16 at 09:00 Hydrochlorothiazide (Hydrochlorothiazide) 12.5 mg DAILY PO Last administered on 12/03/16 08:24; Admin Dose 12.5 MG; Start 11/27/16 at 09:00 Hydromorphone HCl (Dilaudid) 1.5 mg Q4H PRN IV SEVERE PAIN LEVEL 7-10 Last administered on 11/28/16 20:06; Admin Dose 1.5 MG; Start 11/26/16 at 10:00 Acetaminophen/ Butalbital/ Caffeine 1 tab 1 tab Q4H PRN PO HEADACHE PAIN Last administered on 12/03/16 12:20; Admin Dose 1 TAB; Start 11/28/16 at 11:00 Ceftriaxone Sodium (Rocephin) 50 ml @ 100 mls/hr Q24H IVPB Last administered on 12/02/16 17:17; Admin Dose 100 MLS/HR; Start 11/29/16 at 17:00 Hydromorphone HCl (Dilaudid) 0.5 mg Q4H PRN IV SEVERE PAIN LEVEL 7-10; Start at 18:00 Lisinopril 5 mg 5 mg DAILY PO Last administered on 12/03/16 08:25; Admin Dose 5 MG; Start 12/01/16 at 09:00 Sodium Chloride (NS) 1,000 ml @ 70 mls/hr [id number] IV Last administered on 12/02 15:19; Admin Dose 70 MLS/HR; Start 12/02/16 at 15:30 Insulin Glargine (Lantus) 28 unit QPM SC ; Start 12/03/16 at 21:00 ALYCIA DANIEL Dec 03, 2016 15:39
[2016-12-03] MEDS: CEFTRIAXONE 1 GM/50 ML (PMX) 50 ML IVPB SCH (16:35)
--- NOTE | 2016-12-03 19:11 | CONS ---
Date/Time of Note Date/Time of Note DATE: 12/03/16 TIME: 19:10 Assessment/Plan Assessment/Plan Additional Assessment/Plan 1. 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 Low proteinuric CKD due to diabetic nephropathy 2. Scortal abscess s/p I & D 3. SCortal cellultiis 4. H/o HTN 5. H/o DM II poorly controlled with HBA1c 11.5 Plan: Continue Current iV abx, Renally dose all abx, ID following Cr improved to 1.31 with another 1 liter NS yesterday uric 7.9- normal, CK total normal REnal US reviewed, pt Kindey size is low normal with normal echogenicity c/w early medical renal disease, no hydronephrosis will follow up behavioral health case manager instructed to get authorizatin to see Dr.Kalpesh Dickens in Outpatient renal clinic for CKD III, s/p acute renal failure, follow up on Cr and Labs outpatient Consultation Date/Type/Reason Admit Date/Time Nov 24, 2016 at 19:08 Initial Consult Date 11/30/16 Type of Consultation: NEPHROLOGY Referring Provider: NIHARIKA DORADO MD Exam/Review of Systems Vital Signs Vitals Vital Signs Date Time Temp Pulse Resp B/P Pulse Ox O2 Delivery O2 Flow Rate FiO2 12/03/16 12:21 141/69 12/03/16 08:03 98.0 61 19 98 Intake and Output 12/02/16 12/02/16 12/03/16 15:00 23:00 07:00 Intake Total 1230 ml 1200 ml Output Total 1200 ml Balance 30 ml 1200 ml Exam Constitutional: alert Respiratory: clear to auscultation, diminished breath sounds, normal air movement Cardiovascular: nl pulses, regular rate and rhythm Gastrointestinal: nl liver, spleen, non-tender, soft Genitourinary - Male: other (Scrotal support with dressing + ) Musculoskeletal: nl extremities to inspection, nl gait and stance Extremities: normal pulses Neurological: 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 II-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 intact, nl mental status, nl speech, nl strength Results Result Diagram: 12/03/16 0433 12/03/16 0433 Results 24 hrs Laboratory Tests Test 12/02/16 21:37 12/03/16 02:15 12/03/16 02:55 12/03/16 04:33 Bedside Glucose 241 H 307 H 253 H White Blood Count 7.8 Red Blood Count 3.99 L Hemoglobin 10.7 L Hematocrit 33.3 L Mean Corpuscular Volume 83.5 Mean Corpuscular Hemoglobin 26.8 L Mean Corpuscular Hemoglobin Concent 32.1 Red Cell Distribution Width 13.1 Platelet Count 312 Mean Platelet Volume 9.9 Neutrophils % 48.6 Lymphocytes % 38.9 Monocytes % 6.6 Eosinophils % 3.1 Basophils % 0.4 Nucleated Red Blood Cells % 0.0 Neutrophils # 3.8 Lymphocytes # 3.1 H Monocytes # 0.5 Eosinophils # 0.2 Basophils # 0.0 Nucleated Red Blood Cells # 0.0 Sodium Level 139 Potassium Level 3.9 Chloride Level 106 Carbon Dioxide Level 26 Anion Gap 11 Blood Urea Nitrogen 38 H Creatinine 1.31 H Glucose Level 193 # Calcium Level 8.9 Phosphorus Level 2.9 Magnesium Level 1.9 Test 12/03/16 07:23 12/03/16 08:22 12/03/16 12:17 12/03/16 17:35 Lab Scanned Report REFERENCE LAB Bedside Glucose 120 188 163 Medications Medications Current Medications Ondansetron HCl (Zofran Inj) 4 mg Q6H PRN IV NAUSEA AND/OR VOMITING Last administered on 11/30/16 10:48; Admin Dose 4 MG; Start 11/24/16 at 20:30 Acetaminophen (Tylenol Tab) 650 mg Q6H PRN PO PAIN LEVEL 1-3 OR FEVER Last administered on 11/28/16 18:36; Admin Dose 650 MG; Start 11/24/16 at 20:30 Morphine Sulfate (morphine) 2 mg Q4H PRN IV PAIN LEVEL 7-10 Last administered on 11/25/16 12:16; Admin Dose 2 MG; Start 11/24/16 at 20:30 Famotidine (Pepcid) 20 mg Q24H PO Last administered on 12/02/16 21:38; Admin Dose 20 MG; Start 11/24/16 at 21:00 Acetaminophen/ Hydrocodone Bitart ([place] (10/325)) 1 tab Q6H PRN PO PAIN Last administered on 11/26/16 17:13; Admin Dose 1 TAB; Start 11/24/16 at 23:00 Nitroglycerin (Nitroglycerin (Sl Tab) 0.4 Mg) 1 tab [id number] PRN SL CHEST PAIN ; Start 11/24/16 at 23:00 Diagnostic Test (Pha) (Accu-Chek) 1 ea 02 XX Last administered on 12/02/16 02: 00; Admin Dose 1 EA; Start 11/25/16 at 02:00 Miscellaneous Information 1 ea NOTE XX ; Start 11/24/16 at 23:00 Glucose (Glutose) 15 gm Q15M PRN PO DECREASED GLUCOSE; Start 11/24/16 at 23:00 Glucose (Glutose) 22.5 gm Q15M PRN PO DECREASED GLUCOSE; Start 11/24/16 at 23: 00 Dextrose (D50w Syringe) 25 ml Q15M PRN IV DECREASED GLUCOSE; Start 11/24/16 at 23:00 Dextrose (D50w Syringe) 50 ml Q15M PRN IV DECREASED GLUCOSE; Start 11/24/16 at 23:00 Glucagon (Glucagen) 1 mg Q15M PRN IM DECREASED GLUCOSE; Start 11/24/16 at 23:00 Glucose (Glutose) 15 gm Q15M PRN BUCCAL DECREASED GLUCOSE; Start 11/24/16 at 23 :00 Hydralazine HCl (Apresoline) 25 mg TID PO Last administered on 12/03/16 12:20 ; Admin Dose 25 MG; Start 11/24/16 at 22:48 Gabapentin (Neurontin) 300 mg DAILY PO Last administered on 12/03/16 08:23; Admin Dose 300 MG; Start 11/25/16 at 09:00 Hydrochlorothiazide (Hydrochlorothiazide) 12.5 mg DAILY PO Last administered on 12/03/16 08:24; Admin Dose 12.5 MG; Start 11/27/16 at 09:00 Hydromorphone HCl (Dilaudid) 1.5 mg Q4H PRN IV SEVERE PAIN LEVEL 7-10 Last administered on 11/28/16 20:06; Admin Dose 1.5 MG; Start 11/26/16 at 10:00 Acetaminophen/ Butalbital/ Caffeine 1 tab 1 tab Q4H PRN PO HEADACHE PAIN Last administered on 12/03/16 16:50; Admin Dose 1 TAB; Start 11/28/16 at 11:00 Ceftriaxone Sodium (Rocephin) 50 ml @ 100 mls/hr Q24H IVPB Last administered on 12/03/16 16:35; Admin Dose 100 MLS/HR; Start 11/29/16 at 17:00 Hydromorphone HCl (Dilaudid) 0.5 mg Q4H PRN IV SEVERE PAIN LEVEL 7-10; Start at 18:00 Lisinopril 5 mg 5 mg DAILY PO Last administered on 12/03/16 08:25; Admin Dose 5 MG; Start 12/01/16 at 09:00 Sodium Chloride (NS) 1,000 ml @ 70 mls/hr [id number] IV Last administered on 12/02 15:19; Admin Dose 70 MLS/HR; Start 12/02/16 at 15:30 Insulin Glargine (Lantus) 28 unit QPM SC ; Start 12/03/16 at 21:00 TALITA DICKENS MD Dec 03, 2016 19:11
[2016-12-03 19:28] VITALS: BP 141/72; RESP 18
[2016-12-03] MEDS: FAMOTIDINE 20 MG TAB PO SCH (20:35)
[2016-12-04] MEDS: ACCU-CHEK XX SCH (02:00)
[2016-12-04 02:34] VITALS: BP 136/74; RESP 18
[2016-12-04 07:56] VITALS: BP 159/70; RESP 18
[2016-12-04] MEDS: LISINOPRIL 5 MG TAB PO SCH (08:57)
[2016-12-04] MEDS: HYDROCHLOROTHIAZIDE 12.5 MG CAP PO SCH (08:57)
[2016-12-04] MEDS: GABAPENTIN 300 MG CAP PO SCH (08:57)
[2016-12-04] MEDS: INSULIN ASPART [NOVOLOG] 3 ML PEN SC SCH ×4 (09:02→13:00)
[2016-12-04] MEDS: SOD CHLORIDE 0.9% 1,000 ML IV SCH (10:24)
[2016-12-04] MEDS ORDERED: LISI-313 PO (11:56)
[2016-12-04] MEDS ORDERED: HYDR-3671 PO (11:56)
[2016-12-04] MEDS ORDERED: HYDR-906 PO (11:56)
[2016-12-04] MEDS ORDERED: CEPH-443 PO (11:59)
--- NOTE | 2016-12-04 12:04 | PDOCDIS ---
Discharge Instructions CONDITION Patient Condition: Stable HOME CARE INSTRUCTIONS: Special Diet: CARB CONTROLLED FOLLOW UP/APPOINTMENTS Follow-up Plan 1. Follow up with Dr. Kale Morgan, to make an appointment within 1 week 2. Follow up with wound care recommendations from home health nurse 3. Follow up with Dr. Manuel Matta, nephrology 4. stop benazepril/hctz combination 5. Take medications as indicated and prescribed. ALYCIA DANIEL Dec 04, 2016 12:04
--- NOTE | 2016-12-04 12:08 | DS ---
Date/Time of Note Date/Time of Note DATE: 12/04/16 TIME: 12:08 Discharge Summary Admission/Discharge Info Admit Date/Time Nov 24, 2016 at 19:08 Discharge Date/Time Patient Condition: Stable Hx of Present Illness Chief complaint: Testicular pain, chest pain The patient is a 61-year-old male, presenting with left testicular pain for approximately 1 week, was seen in the ER about 5 days ago and diagnosed with left epididymoorchitis and discharged with Cipro. He is not getting better despite taking Cipro. He has not been able to see a urologist yet He complains of left-sided chest pain that radiated to the back. He denied dysuria, diarrhea , constipation, painful urination or frequent urination. He does not smoke or drink Allergies: Antibiotics unknown which ones Patient's: See [facility] Hospital Course Discharge diagnosis Scrotal abscess status post incision and drainage Scrotal swelling, resolving Chest pain, resolved Diabetes mellitus, uncontrolled Hypertension Chronic kidney disease Patient is a 61-year-old male with a past medical history of skin abscesses and uncontrolled diabetes and hypertension who presents to [facility] for chest pain and scrotal pain. Chest pain that appeared to be associated with scrotal pain and imaging of the scrotum showed possible abscess. Urology was consulted and performed an incision and drainage of the abscess and patient was seen by infectious disease and started on appropriate antibiotics. Patient had a prolonged stay due to the nature of his abscess and after all lab values normalized patient was placed on oral antibiotics and given explicit instructions to follow-up with urology, Dr. Morgan, with phone number given as well as nephrology and his primary care provider to see an food service representative as soon as possible. Patient will be discharged with all phone numbers and antibiotics and new medications and with home with home wound care. Home Meds Active Scripts Cephalexin* (Keflex*) 500 Mg Capsule, 500 MG PO Q8 for 14 Days, #42 CAP Prov:ALYCIA DANIEL 12/04/16 Lisinopril* (Lisinopril*) 5 Mg Tablet, 5 MG PO DAILY for 30 Days, #30 TAB 2 Refills Prov:ALYCIA DANIEL 12/04/16 Hydralazine Hcl* (Hydralazine Hcl*) 25 Mg Tab, 25 MG PO TID for 30 Days, #30 TAB 2 Refills Prov:ALYCIA DANIEL 12/04/16 Ondansetron (Ondansetron Odt) 4 Mg Tab.rapdis, 4 MG PO Q6H Y for NAUSEA AND/OR VOMITING, #10 TAB Prov:LENCHO NAQVI MD 11/19/16 Hydrocodone/Acetaminophen ([place] 10-325 Tablet) 1 Each Tablet, 1 TAB PO Q6H Y for PAIN, #7 TAB Prov:LENCHO NAQVI MD 11/19/16 Hydralazine Hcl* (Hydralazine Hcl*) 25 Mg Tab, 25 MG PO TID for 30 Days, TAB Prov:DONNA CARSON NP 01/11/14 Reported Medications Ergocalciferol (Vitamin D2) (VITAMIN D2) 50,000 Unit Capsule, 25612 UNIT PO Q7D , CAP 11/24/16 Lisinopril/Hydrochlorothiazide (Lisinopril-Hctz 20-12.5 mg Tab) 1 Each Tablet, 1 EACH PO BID, TAB 11/24/16 Ibuprofen* (Ibuprofen*) 600 Mg Tablet, 600 MG PO BID Y for PAIN, TAB 11/24/16 Sildenafil Citrate* (Viagra*) 100 Mg Tablet, 100 MG PO DAILY, TAB 11/24/16 Insulin Lispro (Humalog Kwikpen U-100) 100 Unit/1 Ml Insuln.pen, 40 UNIT SQ WITH MEALS TID 11/24/16 Insulin Glargine* (Lantus*) 100 Unit/Ml Soln, 60 UNIT SC QHS, #1 VIAL 11/24/16 Nitroglycerin* (Nitroglycerin* SL) 0.4 Mg Tab.subl, 0.4 MG SL Q5MIN Y for CHEST PAIN, BOTTLE 01/03/14 Gabapentin* (Neurontin*) 300 Mg Capsule, 300 MG PO DAILY, CAP 01/03/14 Follow-up Plan 1. Follow up with Dr. Kale Morgan, to make an appointment within 1 week 2. Follow up with wound care recommendations from home health nurse 3. Follow up with Dr. Manuel Matta, nephrology 4. stop benazepril/hctz combination 5. Take medications as indicated and prescribed. Primary Care Provider Not On Staff Doctor Time spent on discharge: > 30 minutes Pending Labs Laboratory Tests Test 12/03/16 12:17 12/03/16 17:35 12/03/16 20:28 12/04/16 01:42 Bedside Glucose 188mg/dL (70-220) 163mg/dL (70-220) 228mg/dL (70-220) 241mg/dL (70-220) Test 12/04/16 08:40 Bedside Glucose 222mg/dL (70-220) ALYCIA DANIEL Dec 04, 2016 12:08
--- NOTE | 2016-12-04 12:10 | CONS ---
Date/Time of Note Date/Time of Note DATE: 12/04/16 TIME: 12:08 Assessment/Plan Assessment/Plan Chief Complaint/Hosp Course SUBJECTIVE DATA: PNo acute events overnight no fevers patient looks comfortable afebrile temperature 97.5 pulse 78 respirations 18 blood pressure 159/70 saturation 98% on Microbiology repeat wound culture growing strep agalactiae and staph species both susceptible to Ancef ANTIMICROBIALS: The patient is on Rocephin. PHYSICAL EXAMINATION: GENERAL: Well developed, elderly man, in no distress. HEENT: Head atraumatic, normocephalic. Sclerae anicteric. Buccal mucosa pink. NECK: Supple. CHEST: Chest rise symmetrical. Breath sounds clear. HEART: S1, S2. ABDOMEN: Soft, bowel sounds present. EXTREMITIES: No cyanosis. ASSESSMENT: 1. Systemic inflammatory response syndrome. 2. Status post scrotal abscess drainage and debridement of devitalized skin and subcutaneous tissue on November 27, [address] Morgan. 3. Acute on chronic kidney disease. 4. Diabetes. 5. Hypertension. PLAN: The patient remains stable, continue antibiotics, local wound care. Anticipate dc on oral Keflex and Augmentin, follow with urology outpatient Problems: Consultation Date/Type/Reason Admit Date/Time Nov 24, 2016 at 19:08 Initial Consult Date 11/30/16 Type of Consultation: ID Referring Provider: NIHARIKA DORADO MD Exam/Review of Systems Vital Signs Vitals Vital Signs Date Time Temp Pulse Resp B/P Pulse Ox O2 Delivery O2 Flow Rate FiO2 12/04/16 07:56 97.5 78 18 159/70 98 Intake and Output 12/03/16 12/03/16 12/04/16 15:00 23:00 07:00 Intake Total 1430 ml 960 ml Balance 1430 ml 960 ml Results Result Diagram: 12/03/16 0433 12/03/16 0433 Results 24 hrs Laboratory Tests Test 12/03/16 12:17 12/03/16 17:35 12/03/16 20:28 12/04/16 01:42 Bedside Glucose 188 163 228 H 241 H Test 12/04/16 08:40 Bedside Glucose 222 H Medications Medications Current Medications Ondansetron HCl (Zofran Inj) 4 mg Q6H PRN IV NAUSEA AND/OR VOMITING Last administered on 11/30/16t 10:48; Admin Dose 4 MG; Start 11/24/16 at 20:30 Acetaminophen (Tylenol Tab) 650 mg Q6H PRN PO PAIN LEVEL 1-3 OR FEVER Last administered on 11/28/16 18:36; Admin Dose 650 MG; Start 11/24/16 at 20:30 Morphine Sulfate (morphine) 2 mg Q4H PRN IV PAIN LEVEL 7-10 Last administered on 11/25/16 12:16; Admin Dose 2 MG; Start 11/24/16 at 20:30 Famotidine (Pepcid) 20 mg Q24H PO Last administered on 12/03/16 20:35; Admin Dose 20 MG; Start 11/24/16 at 21:00 Acetaminophen/ Hydrocodone Bitart ([place] (10)) 1 tab Q6H PRN PO PAIN Last administered on 11/26/16 17:13; Admin Dose 1 TAB; Start 11/24/16 at 23:00 Nitroglycerin (Nitroglycerin (Sl Tab) 0.4 Mg) 1 tab [id number] PRN SL CHEST PAIN ; Start 11/24/16 at 23:00 Diagnostic Test (Pha) (Accu-Chek) 1 ea 02 XX Last administered on 12/02/16 02: 00; Admin Dose 1 EA; Start 11/25/16 at 02:00 Miscellaneous Information 1 ea NOTE XX ; Start 11/24/16 at 23:00 Glucose (Glutose) 15 gm Q15M PRN PO DECREASED GLUCOSE; Start 11/24/16 at 23:00 Glucose (Glutose) 22.5 gm Q15M PRN PO DECREASED GLUCOSE; Start 11/24/16 at 23: 00 Dextrose (D50w Syringe) 25 ml Q15M PRN IV DECREASED GLUCOSE; Start 11/24/16 at 23:00 Dextrose (D50w Syringe) 50 ml Q15M PRN IV DECREASED GLUCOSE; Start 11/24/16 at 23:00 Glucagon (Glucagen) 1 mg Q15M PRN IM DECREASED GLUCOSE; Start 11/24/16 at 23:00 Glucose (Glutose) 15 gm Q15M PRN BUCCAL DECREASED GLUCOSE; Start 11/24/16 at 23 :00 Hydralazine HCl (Apresoline) 25 mg TID PO Last administered on 12/04/16 08:58 ; Admin Dose 25 MG; Start 11/24/16 at 22:48 Gabapentin (Neurontin) 300 mg DAILY PO Last administered on 12/04/16 08:57; Admin Dose 300 MG; Start 11/25/16 at 09:00 Hydrochlorothiazide (Hydrochlorothiazide) 12.5 mg DAILY PO Last administered on 12/04/16 08:57; Admin Dose 12.5 MG; Start 11/27/16 at 09:00 Hydromorphone HCl (Dilaudid) 1.5 mg Q4H PRN IV SEVERE PAIN LEVEL 7-10 Last administered on 11/28/16 20:06; Admin Dose 1.5 MG; Start 11/26/16 at 10:00 Acetaminophen/ Butalbital/ Caffeine 1 tab 1 tab Q4H PRN PO HEADACHE PAIN Last administered on 12/03/16 16:50; Admin Dose 1 TAB; Start 11/28/16 at 11:00 Ceftriaxone Sodium (Rocephin) 50 ml @ 100 mls/hr Q24H IVPB Last administered on 12/03/16 16:35; Admin Dose 100 MLS/HR; Start 11/29/16 at 17:00 Hydromorphone HCl (Dilaudid) 0.5 mg Q4H PRN IV SEVERE PAIN LEVEL 7-10; Start at 18:00 Lisinopril 5 mg 5 mg DAILY PO Last administered on 12/04/16 08:57; Admin Dose 5 MG; Start 12/01/16 at 09:00 Sodium Chloride (NS) 1,000 ml @ 70 mls/hr [id number] IV Last administered on 12/02 15:19; Admin Dose 70 MLS/HR; Start 12/02/16 at 15:30 Insulin Glargine (Lantus) 28 unit QPM SC Last administered on 12/03/16 20:34; Admin Dose 28 UNIT; Start 12/03/16 at 21:00 BELL WEEMS NP Dec 04, 2016 12:10
[2016-12-04] MEDS ORDERED: AMOX1TAB9 PO ×2 (12:23→12:27)
--- NOTE | 2016-12-04 21:03 | CONS ---
Date/Time of Note Date/Time of Note DATE: 12/04/16 TIME: 21:02 Assessment/Plan Assessment/Plan Additional Assessment/Plan 1. 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 Low proteinuric CKD due to diabetic nephropathy 2. Scortal abscess s/p I & D 3. SCortal cellultiis 4. H/o HTN 5. H/o DM II poorly controlled with HBA1c 11.5 Plan: Continue Current iV abx, Renally dose all abx, ID following Cr improved to 1.1 uric 7.9- normal, CK total normal REnal US reviewed, pt Kindey size is low normal with normal echogenicity c/w early medical renal disease, no hydronephrosis will follow up network account manager instructed to get authorizatin to see Dr.Kalpesh Dickens in Outpatient renal clinic for CKD III, s/p acute renal failure, follow up on Cr and Labs outpatient Consultation Date/Type/Reason Admit Date/Time Nov 24, 2016 at 19:08 Initial Consult Date 11/30/16 Type of Consultation: NEPHROLOGY Referring Provider: NIHARIKA DORADO MD 24 HR Interval Summary Free Text/Dictation Cr slightly improved better, BP stable Exam/Review of Systems Vital Signs Vitals Vital Signs Date Time Temp Pulse Resp B/P Pulse Ox O2 Delivery O2 Flow Rate FiO2 12/04/16 07:56 97.5 78 18 159/70 98 Intake and Output 12/03/16 12/03/16 12/04/16 15:00 23:00 07:00 Intake Total 1430 ml 960 ml Balance 1430 ml 960 ml Results Result Diagram: 12/03/16 0433 12/03/16 0433 Results 24 hrs Laboratory Tests Test 12/04/16 01:42 12/04/16 08:40 12/04/16 12:30 12/04/16 12:42 Bedside Glucose 241 H 222 H 216 Lab Scanned Report REFERENCE LAB TALITA DICKENS MD Dec 04, 2016 21:03
== END 2016-12-04 13:29 | disposition home health service (06) | DRG 717 ==
LOC: E/R 13:52 → TEL 19:08 → MS1 11-30 08:00
PROVIDERS: ADMIT Family Medicine; ATTEND Family Medicine
PROC: 0JBB0ZZ Excision of Perineum Subcutaneous Tissue and Fascia, Open Approach (ICD-10-PCS; principal; 2016-11-26 18:00)
DX: N49.3 Fournier gangrene (principal); N17.0 Acute kidney failure with tubular necrosis; E11.42 Type 2 diabetes mellitus with diabetic polyneuropathy; N18.3 Chronic kidney disease, stage 3 (moderate); R65.10 Systemic inflammatory response syndrome (SIRS) of non-infectious origin without acute organ dysfunction; E11.21 Type 2 diabetes mellitus with diabetic nephropathy; E11.22 Type 2 diabetes mellitus with diabetic chronic kidney disease; D64.9 Anemia, unspecified; I12.9 Hypertensive chronic kidney disease with stage 1 through stage 4 chronic kidney disease, or unspecified chronic kidney disease; R07.9 Chest pain, unspecified; E78.5 Hyperlipidemia, unspecified; M21.372 Foot drop, left foot; B95.1 Streptococcus, group B, as the cause of diseases classified elsewhere; N49.2 Inflammatory disorders of scrotum; E11.65 Type 2 diabetes mellitus with hyperglycemia; Z79.4 Long term (current) use of insulin
CPT/HCPCS: 36415; 71010; 76775; 76870; 80048; 80053; 80061; 80069; 81001; 81003; 82550; 82553; 82570; 82962; 83036; 83735; 84100; 84300; 84443; 84484; 84560; 85025; 87040; 87070; 87075; 87086; 87102; 87110; 87116; 87591; 88304; 89190; 93005; 93306; 96374; 96375; 97161; 97166; J0696; J1170; J1815; J1940; J1956; J2270; J2405; J2765; J3010; J7030

== ENCOUNTER 2016-12-08 14:42 | Emergency (ER) | payer OTHER ==
[~2016-12-08] VITALS: Ht 165.1 cm; Wt 80.0 kg
[~2016-12-08 14:42] MED LIST changes: -AMIT25TA9 PO; +AMOX1TAB9 PO; -ASPI-664 PO; -ATOR10TA65 PO; -BICS PO; -CALC-84 PO; -CARV3.12 PO; +CEPH-443 PO; -CIPR500T4 PO; -CYAN500T46 PO; -HYDR-3498 PO; -HYDR-902 PO; +HYDR-906 PO; +INSU100I12 SQ; +LANT3I SC; +LISI-313 PO; -LISI20TA11 PO; -ONDA4TAB14 PO; -ONDA4TAB8 PO; -RANI150T5 PO; -TAMS-14 PO; -TERA1CAP39 PO
[2016-12-08 14:46] VITALS: Ht 165.1 cm; Wt 80.0 kg
--- NOTE | 2016-12-08 20:08 | ERD ---
ER Documentation Chief Complaint Date/Time DATE: 12/08/16 TIME: 20:00 Chief Complaint ar to keflex, augmentin, for scrotal abcess, dc from hosp last thursday HPI 61-year-old male who presents emergency department for rashes and hives. Stated that he has allergic reaction to his medicines that was prescribed to him namely Augmentin and Keflex. He was here 2 weeks ago for scrotal abscess, discharge last Thursday with Keflex and Augmentin. Rashes and hives started last Thursday. Denies headache, dizziness, blurry vision, neck pain, shoulder pain, throat pain , difficulty swallowing, throat tightness, chest tightness, chest pain, difficulty breathing, abdominal pain, nausea, vomiting, constipation, diarrhea, urinary symptoms, fever, chills. Allergies to unknown name of antibiotics. Past medical history of diabetes, hypertension. Medication: Reviewed. Social: Not working at this time. Denies smoking, use of alcohol, use of illegal drugs. ROS All systems reviewed and are negative except as per history of present illness. Medications Home Meds Active Scripts Diphenhydramine Hcl* (Benadryl*) 25 Mg Cap, 25 MG PO Q8 Y for ITCHING/RASH, #30 TAB Prov:SHITAL LEACH 12/08/16 Loratadine* (Claritin*) 10 Mg Capsule, 10 MG PO DAILY for 10 Days, CAP Prov:PASILABANSHITAL F 12/08/16 Famotidine* (Pepcid*) 20 Mg Tablet, 20 MG PO DAILY for 10 Days, TAB Prov:SHITAL LEACH 12/08/16 Prednisone* (Prednisone*) 20 Mg Tab, 40 MG PO DAILY for 3 Days, TAB Prov:PASILASHITAL GILBERT 12/08/16 Amoxicillin/Potassium Clav (Amox-Clav 500-125 mg Tablet) 500-125 mg Tab, 1 TAB PO BID for 14 Days, #28 TAB Prov:ALYCIA DANIEL 12/04/16 Cephalexin* (Keflex*) 500 Mg Capsule, 500 MG PO Q8 for 14 Days, #42 CAP Prov:ALYCIA DANIEL 12/04/16 Hydrocodone/Acetaminophen ([place] 5-325 Tablet) 1 Each Tablet, 1 EACH PO Q8 for PAIN for 7 Days, #21 TAB Prov:ALYCIA DANIEL 12/04/16 Lisinopril* (Lisinopril*) 5 Mg Tablet, 5 MG PO DAILY for 30 Days, #30 TAB 2 Refills Prov:ALYCIA DANIEL 12/04/16 Hydralazine Hcl* (Hydralazine Hcl*) 25 Mg Tab, 25 MG PO TID for 30 Days, #30 TAB 2 Refills Prov:ALYCIA DANIEL J 12/04/16 Reported Medications Insulin Lispro (Humalog Kwikpen U-100) 100 Unit/1 Ml Insuln.pen, 40 UNIT SQ WITH MEALS TID 11/24/16 Insulin Glargine* (Lantus*) 100 Unit/Ml Soln, 60 UNIT SC QHS, #1 VIAL 11/24/16 Nitroglycerin* (Nitroglycerin* SL) 0.4 Mg Tab.subl, 0.4 MG SL Q5MIN Y for CHEST PAIN, BOTTLE 01/03/14 Gabapentin* (Neurontin*) 300 Mg Capsule, 300 MG PO DAILY, CAP 01/03/14 Discontinued Reported Medications Ergocalciferol (Vitamin D2) (VITAMIN D2) 50,000 Unit Capsule, 48738 UNIT PO Q7D , CAP 11/24/16 Lisinopril/Hydrochlorothiazide (Lisinopril-Hctz 20-12.5 mg Tab) 1 Each Tablet, 1 EACH PO BID, TAB 11/24/16 Ibuprofen* (Ibuprofen*) 600 Mg Tablet, 600 MG PO BID Y for PAIN, TAB 11/24/16 Sildenafil Citrate* (Viagra*) 100 Mg Tablet, 100 MG PO DAILY, TAB 11/24/16 Discontinued Scripts Ondansetron (Ondansetron Odt) 4 Mg Tab.rapdis, 4 MG PO Q6H Y for NAUSEA AND/OR VOMITING, #10 TAB Prov:LENCHO NAQVI MD 11/19/16 Hydrocodone/Acetaminophen ([place] 10-325 Tablet) 1 Each Tablet, 1 TAB PO Q6H Y for PAIN, #7 TAB Prov:LENCHO NAQVI MD 11/19/16 Hydralazine Hcl* (Hydralazine Hcl*) 25 Mg Tab, 25 MG PO TID for 30 Days, TAB Prov:DONNA CARSON NP 01/11/14 Allergies Allergies: Uncoded Allergies: ANTIBIOTICS (Allergy, Unknown, 01/03/14) PMhx/Soc History of Surgery: Yes Anesthesia Reaction: No Hx Neurological Disorder: Yes (peripheral neuropathy) Hx Respiratory Disorders: No Hx Cardiac Disorders: Yes Hx Psychiatric Problems: No Hx Miscellaneous Medical Probl: Yes (chest pain, L foot drop, DM, HTN, chronic kidney dz) Hx Alcohol Use: No Hx Substance Use: No Hx Tobacco Use: No Smoking Status: Never smoker Physical Exam Vitals Vital Signs Date Time Temp Pulse Resp B/P Pulse Ox O2 Delivery O2 Flow Rate FiO2 12/08/16 14:46 98.1 78 20 156/78 99 Physical Exam Const: [] Head: Atraumatic Eyes: Normal Conjunctiva ENT: Normal External Ears, Nose and Mouth. Both: Uvula is midline and not displaced. Tonsils are +1 bilaterally without redness and without exudates. Tolerating secretions. Patent airway. Speaks full and clear sentences. Neck: Full range of motion..~ No meningismus. Resp: Clear to auscultation bilaterally Cardio: Regular rate and rhythm, no murmurs Abd: Soft, non tender, non distended. Normal bowel sounds Skin: Rashes and mild hives to chest and back, bilateral upper extremities. Back: No midline or flank tenderness Ext: No cyanosis, or edema Neur: Awake and alert x 4. Psych: Normal Mood and Affect Results 24 hrs Current Medications Medications (Trade) Dose Ordered Sig/Aubrey Route PRN Reason Start Time Stop Time Status Last Admin Dose Admin Methylprednisolone Sodium Succinate (Solu-Medrol) 125 mg ONCE ONCE IM 12/08/16 20:30 12/08/16 20:31 DC 12/08/16 20:21 Famotidine (Pepcid) 40 mg ONCE ONCE PO 12/08/16 20:30 12/08/16 20:31 DC 12/08/16 20:22 Diphenhydramine HCl (Benadryl) 25 mg ONCE ONCE IM 12/08/16 20:30 12/08/16 20:31 DC 12/08/16 20:21 Procedures/MDM 61-year-old male who presents emergency department for rashes and hives. Stated that he has allergic reaction to his medicines that was prescribed to him namely Augmentin and Keflex. He was here 2 weeks ago for scrotal abscess, discharge last Thursday with Keflex and Augmentin. Her last Thursday. Physical exam: Rashes and hives to chest and back and bilateral upper extremities. Patient stated that it is itchy. Throat: Uvula is midline and not displaced. Tonsils are +1 bilaterally without redness and without exudates. Respirations even and unlabored. Lung sounds are clear to auscultation. Disease process was explained to the patient. She verbalized understanding and agreed with the treatment, plan of care. Treatment: Solu-Medrol IM. Benadryl. Pepcid. Reevaluation: Denies headache, dizziness, blurry vision, neck pain, shoulder pain, throat pain, throat tightness, throat itchiness, chest tightness, chest itchiness. No signs of angioedema. Respirations even and unlabored. Lungs are clear to auscultation.: Uvula is in midline not displaced. Tonsils are +1 bilaterally without redness and without exudates. Tolerating secretions. Patent airway. Speaks full and clear sentences. No episode of opacity in the emergency department. Skin appears clear. No hives. No neurological deficit no neurovascular deficits. Cranial nerves II through XII are intact. Differential diagnosis: Anaphylaxis versus angioedema versus allergic reaction versus hives versus scabies versus atopic dermatitis Final diagnosis: allergic reaction. Prescription: Prednisone. Benadryl. Claritin. Follow-up with primary care physician the next 24-48 hours. PCP to refer patient to entry level automotive technician if symptoms persist. Come back to emergency department for any new symptoms or any worsening of symptoms. All questions and concerns are answered. Patient verbalized understanding and agreed with the plan of care. Hemodynamically stable on discharge. Departure Diagnosis: Primary Impression: Allergic reaction Condition: Stable Additional Instructions: Follow-up with primary care physician the next 24-48 hours. PCP to refer patient to entry level automotive technician if symptoms persist. Come back to emergency department for any new symptoms or any worsening of symptoms. All questions and concerns are answered. Patient verbalized understanding and agreed with the plan of care. SHITAL LEACH Dec 08, 2016 20:08
[2016-12-08] MEDS ORDERED: PRED20TA PO (20:14)
[2016-12-08] MEDS ORDERED: FAMO-96 PO (20:15)
[2016-12-08] MEDS ORDERED: BEN25 PO (20:15)
[2016-12-08] MEDS ORDERED: LORA10CA PO (20:15)
[2016-12-08] MEDS ORDERED: FAMOTIDINE 20 MG TAB PO ONE (20:30)
[2016-12-08] MEDS ORDERED: DIPHENHYDRAMINE 50 MG INJ IM ONE (20:30)
[2016-12-08] MEDS ORDERED: METHYLPREDNISOLONE 125 MG INJ IM ONE (20:30)
== END 2016-12-08 21:41 | disposition home or self-care (01) ==
LOC: FTE 14:42
DX: R21 Rash and other nonspecific skin eruption (principal); I10 Essential (primary) hypertension; E11.9 Type 2 diabetes mellitus without complications; Z79.4 Long term (current) use of insulin
CPT/HCPCS: 96372; J1200; J2930; Z7502; Z7610

== ENCOUNTER 2017-06-04 00:50 | Inpatient (IN) | END 2017-06-07 15:10 | disposition home or self-care (01) | DRG 439 ==

== ENCOUNTER 2018-01-17 22:30 | Inpatient (IN) | END 2018-01-21 11:05 | disposition home health service (06) | DRG 872 ==

== ENCOUNTER 2018-03-19 15:09 | Inpatient (IN) | payer OTHER ==
[~2018-03-19] VITALS: Ht 165.1 cm; Wt 74.2 kg
[~2018-03-19 15:09] MED LIST changes: +AMLO2.5T78 PO; +AMOX1TAB10 PO; -AMOX1TAB9 PO; +ATOR10TA65 PO; -CEPH-443 PO; -HYDR-906 PO; -INSU100I12 SQ; -LISI-313 PO; +LORA10CA PO; +NOVO3I SC; +OMEG-157 PO
[2018-03-19] MEDS ORDERED: SOD CHLORIDE 0.9% 800 ML IV ONE (18:00)
--- NOTE | 2018-03-19 18:16 | ERD ---
ER Documentation Chief Complaint Chief Complaint LEFT FLANK AND LOWER BACK PAIN HPI This is a 63-year-old gentleman with multiple complaints and multiple medical problems. The patient is a limited and difficult historian. He describes stage IV kidney disease without dialysis. He describes diabetes that is poorly controlled. His main complaint today is that he is having decreased urine output. The patient states that his blood sugars have been in the 500 range. He describes compliance with his medication regimen. He also describes chronic flank and lower back pain that is unchanged from baseline. No bowel or bladder incontinence or lower extremity weakness. He denies any chest pain cough or shortness of breath. He states that his primary care physician sent him to the emergency room. ROS All systems reviewed and are negative except as per history of present illness. Medications Home Meds Reported Medications Ibuprofen* (Ibuprofen*) 800 Mg Tab, 800 MG PO NEEDED PRN for PAIN, TAB 03/19/18 Gabapentin* (Gabapentin*) 300 Mg Capsule, 300 MG PO DAILY, #60 CAP 03/19/18 Insulin Glargine* (Lantus*) 100 Unit/Ml Soln, 60 UNIT SC QHS, #1 VIAL 03/19/18 Carvedilol* (Carvedilol*) 6.25 Mg Tablet, 6.25 MG PO BID, #60 TAB 03/19/18 Insulin Aspart* (Novolog Insulin Pen*) 100 Unit/Ml Soln, 35 UNIT SC WITH MEALS, EA 03/19/18 Aspirin (Aspir-Low) 81 Mg Tablet.dr, 81 MG PO DAILY 03/19/18 Lisinopril/Hydrochlorothiazide (Lisinopril-Hctz 20-12.5 mg Tab) 1 Each Tablet, 1 EACH PO BID, TAB 03/19/18 Allergies Allergies: Coded Allergies: No Known Allergy (Unverified , 03/19/18) PMhx/Soc History of Surgery: No Hx Miscellaneous Medical Probl: Yes (DM, stage 4 ESRD) Hx Alcohol Use: No Hx Substance Use: No Hx Tobacco Use: No Smoking Status: Never smoker FmHx Family History: diabetes Physical Exam Vitals Vital Signs Date Temp Pulse Resp B/P (MAP) Pulse Ox O2 O2 Flow FiO2 Time Delivery Rate 03/19/18 98.1 98 18 131/78 99 Room Air 18:12 (95) 03/19/18 98.1 81 18 130/90 99 15:17 (103) Physical Exam General: Well developed, well nourished, no acute distress Head: Normocephalic, atraumatic. Eyes: Pupils equally reactive, EOM intact ENT: Moist mucous membranes Neck: Supple, no lymphadenopathy Respiratory: Lungs clear bilaterally, no distress Cardiovascular: RRR, no murmurs, rubs, or gallops Abdominal: Soft, non-tender, non-distended, no peritoneal signs : Deferred MSK: No edema, no unilateral swelling, 5/5 strength Neurologic: Alert and oriented, moving all extremities, normal speech, no focal weakness, no cerebellar signs Skin: No rash Psych: Normal mood Result Diagram: 03/19/18 1756 03/19/18 1756 Results 24 hrs Laboratory Tests Test 03/19/18 17:51 03/19/18 17:56 03/19/18 18:00 Blood Gas Specimen Source Blood venous Arterial Blood Date Drawn 03/19/2018 6:00:10 PM Arterial Blood Gas OTHER Puncture Site Adryan Test N/A Venous Blood pH 7.328 Venous Blood pCO2 34.9 mmHG (Temp Corrected) Venous Blood pO2 23.5 mmHG (Temp Corrected) Venous Blood HCO3 17.9 mmol/L Venous Blood Oxygen 37.7 mmHG Saturation Venous Blood Base Excess -7.1 mmol/L Venous Blood Total 14.5 g/dl Hemoglobin Venous Blood Oxyhemoglobin 37.2 % Venous Blood Methemoglobin 0.4 % Blood Gas A-a O2 84.4 mmHg Differential Carboxyhemoglobin 0.8 % Blood Gas Temperature 37.0 C Blood Gas Modality ROOM AIR FiO2 21.0 % Blood Gas Critical Value LBALIAN R.N. Read Back Blood Gas Notified Whom [facility] Blood Gas Notified Time 03/19/2018 6:04:09 PM White Blood Count 16.2 10^3/ul Red Blood Count 5.17 10^6/ul Hemoglobin 13.1 g/dl Hematocrit 39.5 % Mean Corpuscular Volume 76.4 fl Mean Corpuscular Hemoglobin 25.3 pg Mean Corpuscular 33.2 g/dl Hemoglobin Concent Red Cell Distribution Width 13.0 % Platelet Count 507 10^3/UL Mean Platelet Volume 9.2 fl Immature Granulocytes % 0.600 % Neutrophils % 78.1 % Lymphocytes % 14.4 % Monocytes % 5.3 % Eosinophils % 1.2 % Basophils % 0.4 % Nucleated Red Blood Cells % 0.0 /100WBC Immature Granulocytes # 0.090 10^3/ul Neutrophils # 12.7 10^3/ul Lymphocytes # 2.3 10^3/ul Monocytes # 0.9 10^3/ul Eosinophils # 0.2 10^3/ul Basophils # 0.1 10^3/ul Nucleated Red Blood Cells # 0.0 10^3/ul Prothrombin Time 13.6 Sec Prothrombin Time Ratio 1.1 INR International 1.03 Normalized Ratio Activated 38.8 Sec Partial Thromboplast Time Sodium Level 122 mmol/L Potassium Level 5.2 mmol/L Chloride Level 90 mmol/L Carbon Dioxide Level 17 mmol/L Anion Gap 15 Blood Urea Nitrogen 76 mg/dl Creatinine 2.10 mg/dl Est Glomerular Filtrat 32 mL/min Rate mL/min Glucose Level 693 mg/dl Hemoglobin A1c 11.9 % Calcium Level 9.4 mg/dl Phosphorus Level 4.6 mg/dl Magnesium Level 2.9 mg/dl Total Bilirubin 0.2 mg/dl Direct Bilirubin 0.00 mg/dl Indirect Bilirubin 0.2 mg/dl Aspartate Amino 9 IU/L Transf (AST/SGOT) Alanine < 6 IU/L Aminotransferase (ALT/SGPT) Alkaline Phosphatase 208 IU/L Troponin I < 0.012 ng/ml Total Protein 8.2 g/dl Albumin 4.2 g/dl Globulin 4.00 g/dl Albumin/Globulin Ratio 1.05 Lipase 338 U/L Bedside Glucose > 595 mg/dL Current Medications Medications Dose Sig/Aubrey Start Time Status Last (Trade) Ordered Route PRN Stop Time Admin Dose Reason Admin Sodium 800 ml @ ONCE ONCE 03/19/18 DC 03/19/18 Chloride 800 mls/hr IV 18:00 18:06 03/19/18 18:59 Magnesium 100 ml @ ONCE ONCE 03/19/18 Sulfate/ 100 mls/hr IVPB 19:00 Dextrose 03/19/18 19:59 Potassium 1,000 ml @ Q0M IV 03/19/18 Chloride/Sodi 0 mls/hr 18:58 um Chloride Potassium 1,000 ml @ Q0M IV 03/19/18 Chloride/Dext 0 mls/hr 18:58 ana luisa/ Sod Cl Potassium 1,000 ml @ Q0M IV 03/19/18 Chloride/Sodi 0 mls/hr 18:58 um Chloride Potassium 1,000 ml @ Q0M IV 03/19/18 Chloride/Dext 0 mls/hr 18:58 ana luisa/ Sod Cl Sodium 1,000 ml @ Q0M IV 03/19/18 Chloride 0 mls/hr 18:58 1,000 ml @ Q0M IV 03/19/18 Dextrose/Sodi 0 mls/hr 18:58 um Chloride Insulin 101 ml @ ER DKA 03/19/18 Human 8.08 mls/hr PROTOCOL IV 19:00 Regular 100 unit/ Sodium Chloride Lactated 800 ml @ ONCE ONCE 03/19/18 03/19/18 Ringer's 800 mls/hr IV 19:00 19:08 03/19/18 19:59 HYPOGLYCEM 03/19/18 Miscellaneous HYPOGLYCEMIA PROTOCOL PRN 19:00 TREATMENT XX Information HYPOGLYCEMIA (* (BS<70) Miscellaneous Pharmacy Order) Dextrose 50 ml Q15M PRN 03/19/18 (D50w IV DECREASED 19:00 Syringe) GLUCOSE Dextrose 25 ml Q15M PRN 03/19/18 (D50w IV DECREASED 19:00 Syringe) GLUCOSE Procedures/MDM EKG, MONITORS, & DIAGNOSTIC IMAGING: EKG: I reviewed and interpreted a 12-lead EKG. Rhythm: Normal sinus rhythm ST Changes: No contiguous ST segment elevations T waves: No contiguous T wave inversions Impression: [No evidence of acute cardiac ischemia] Chest x-ray: I reviewed and interpreted a 1 view of the chest Mediastinum: No enlargement Cardiac silhouette: No cardiomegaly Airspace: Clear lung rascon bilaterally without evidence of pneumothorax Bones: No evidence of fracture LAB INTERPRETATION: * Venous blood gas with borderline low pH * CBC reveals leukocytosis with left shift. No anemia likely reactive * Chemistry profile shows multiple abnormalities including sodium of 122 likely secondary to hyperglycemia of 693. Patient has slight hyperkalemia but likely whole-body down. The patient has an anion gap acidosis of 15 with bicarb of 17 creatinine of 2.1, unknown baseline. A1c of 11.9. Negative troponin. Borderline lipase. MEDICAL DECISION MAKING: The patient presents with a multitude of different complaints. His acute issues seem to be hyperglycemia and decreased urine output. The patient likely has an exacerbation of his renal dysfunction. Patient will need to be screened for diabetic ketoacidosis. The patient is describing flank pain and back pain that is consistent with chronic pain. The patient's low back pain is unlikely related to serious etiology. The patient exhibits no clinical signs or symptoms and has no history or risk factors to suggest cauda equina, cord compression, epidural abscess, epidural hematoma, acute aortic aneurysm or dissection. The patient has a benign abdominal exam without signs of acute intra-abdominal process. ER COURSE: * Laboratory testing suggest diabetic ketoacidosis. The patient has a borderline acidosis on pH. Anion gap, bicarb less than 18. Urinalysis not produced. The patient does still make urine but lower amount. * At this point I believe the patient meets criteria for diabetic ketoacidosis but given borderline gap I do believe he will correct quickly. The patient does make some urine and did urinate on the floor in the emergency room. Therefore I believe he will benefit from the fluids. * DKA protocol was initiated with a bolus of weight-based normal saline and lactated Ringer's. Magnesium was repleted through the IV. * DKA protocol was initiated and the patient will be admitted to the intensive care unit. * The patient does have a leukocytosis but no fever. He technically meets SIRS criteria but I believe this is in the setting of diabetic ketoacidosis rather than acute infectious process. He has no abdominal tenderness and no other clear source of infection. No indication for empiric antibiotics. If the patient spikes a fever blood cultures and empiric antibiotics would be reasonable. CONSULTATION: [None] DISPOSITION PLAN: Intensive care unit for treatment of diabetic ketoacidosis Accepting care team and consultations: I discussed the current laboratory data, diagnostic imaging and emergency care provided. Admitting team: Dr. Acuna Admitting team indication: Insurance directed Critical Care Note: Total time: 40min Indication/Organ System Threat: Diabetic ketoacidosis I spent the above amount of critical care time with the patient, not including billable procedures. This included chart review, consultations, repeat bedside evaluations, and titration of appropriate medications to prevent cardiopulmonary or respiratory collapse. Departure Diagnosis: Primary Impression: Diabetic ketoacidosis Diabetes mellitus type: other specified (including ESTELA) Diabetes mellitus complication detail: without coma Qualified Codes: E13.10 - Other specified diabetes mellitus with ketoacidosis without coma Additional Impressions: Renal insufficiency Leukocytosis Leukocytosis type: unspecified Qualified Codes: D72.829 - Elevated white blood cell count, unspecified SIRS (systemic inflammatory response syndrome) Condition: Serious SAMUEL KERNS MD Mar 19, 2018 18:16
[2018-03-19] MEDS ORDERED: NS + KCL 40 MEQ 1,000 ML IV SCH (18:58)
[2018-03-19] MEDS ORDERED: NS + KCL 30 MEQ 1,000 ML IV SCH (18:58)
[2018-03-19] MEDS ORDERED: D10/0.45% NACL + KCL 40 MEQ 1,000 ML IV SCH (18:58)
[2018-03-19] MEDS ORDERED: SOD CHLORIDE 0.9% 1,000 ML IV SCH (18:58)
[2018-03-19] MEDS ORDERED: MAGNESIUM SULFATE 1 GM/D5W 100 ML IVPB ONE (19:00)
[2018-03-19] MEDS ORDERED: LACTATED RINGER'S 800 ML IV ONE (19:00)
[2018-03-19] MEDS ORDERED: DEXTROSE 50% 50 ML SYRINGE IV PRN ×2 (19:00)
[2018-03-19] MEDS: INSULIN REGULAR, HUMAN 100 UNIT in SOD CHLORIDE 0.9% 100 ML IV SCH ×2 (19:37)
--- NOTE | 2018-03-19 20:25 | HP ---
Date/Time of Note Date/Time of Note DATE: 03/19/18 TIME: 20:24 Assessment/Plan VTE Prophylaxis Pharmacological prophylaxis: heparin Lines/Catheters IV C[facility]ter Type (from [facility]): Saline Lock Assessment/Plan Hospital Course This is a 63-year-old male being admitted to the ICU floor for: 1. diabetic ketoacidosis: Secondary to questionable compliance and/or urinary tract infection. While patient reports that he takes his insulin regularly with Lantus 60 units nightly and NovoLog 25-35 units per meal his hemoglobin A1c is 11.9, so I am not sure if he really is compliant. DKA protocol has been initiated, serial labs. Will consult endocrinology. #2 hyponatremia: Sodium of 122 however when corrected for his initial hyperglycemia of 693 it is 131. Likely secondary to volume depletion from DKA. The current time continue to get protocol and fluid management. #3 acute on chronic kidney injury: I do not have a baseline renal function, BUN and creatinine are 75/2.10 respectively. Patient does follow with his ear machine operator Dr. Matta. At the current time will provide hydration with fluids as per the DKA protocol. Will avoid NSAIDs. Will avoid nephrotoxic agents. Check a renal ultrasound. Will await further recommendations from nephrology. #4 metabolic acidosis: Secondary to diabetic ketoacidosis. Continue DKA protoc ol and monitor closely. #5 hypertension: Continue carvedilol, will hold GRACY inhibitor/HCTZ combination given patient's kidney function and hyponatremia. Once we are able to establish a baseline creatinine and stable blood pressures we can resume his home meds as per nephrology recommendations. #6 urinary tract infection: Ceftriaxone 1 g every 24 hours, will check urine culture #7 microcytosis: Patient has an MCV of 76, will check iron stores. #8 DVT GI prophylaxis: Luly subcu, Protonix Further treatment strategy will be implemented as per the clinical course Greater than 35 minutes of critical care time was spent on the care managers patient. Result Diagram: 03/19/18 1756 03/19/18 1756 Results 24hrs Laboratory Tests Test 03/19/18 17:51 03/19/18 17:56 03/19/18 18:00 03/19/18 19:00 Blood Gas Blood venous Specimen Source Arterial Blood 03/19/2018 6:00:1 Date Drawn 0 PM Arterial Blood OTHER Gas Puncture Site Adryan Test N/A Venous Blood pH 7.328 L Venous Blood pCO2 34.9 L (Temp Corrected) Venous Blood pO2 23.5 L (Temp Corrected) Venous Blood HCO3 17.9 L Venous Blood 37.7 L Oxygen Saturation Venous Blood Base -7.1 L Excess Venous Blood 14.5 Total Hemoglobin Venous Blood 37.2 Oxyhemoglobin Venous Blood 0.4 Methemoglobin Blood Gas A-a O2 84.4 Differential Carboxyhemoglobin 0.8 Blood Gas 37.0 Temperature Blood Gas ROOM AIR Modality FiO2 21.0 Blood Gas LBALIAN R.N. Critical Value Read Back Blood Gas MDA Notified Whom Blood Gas 03/19/2018 6:04:0 Notified Time 9 PM White Blood Count 16.2 H Red Blood Count 5.17 Hemoglobin 13.1 L Hematocrit 39.5 L Mean Corpuscular 76.4 L Volume Mean Corpuscular 25.3 L Hemoglobin Mean Corpuscular 33.2 Hemoglobin Concen t Red Cell 13.0 Distribution Width Platelet Count 507 H Mean Platelet 9.2 Volume Immature 0.600 H Granulocytes % Neutrophils % 78.1 H Lymphocytes % 14.4 L Monocytes % 5.3 Eosinophils % 1.2 Basophils % 0.4 Nucleated Red 0.0 Blood Cells % Immature 0.090 H Granulocytes # Neutrophils # 12.7 H Lymphocytes # 2.3 Monocytes # 0.9 Eosinophils # 0.2 Basophils # 0.1 Nucleated Red 0.0 Blood Cells # Prothrombin Time 13.6 Prothrombin Time 1.1 Ratio INR International 1.03 Normalized Ratio Activated 38.8 H Partial Thrombopl ast Time Sodium Level 122 L Potassium Level 5.2 H Chloride Level 90 L Carbon Dioxide 17 L Level Anion Gap 15 H Blood Urea 76 H Nitrogen Creatinine 2.10 H Est Glomerular 32 L Filtrat Rate mL/min Glucose Level 693 *H Hemoglobin A1c 11.9 H Calcium Level 9.4 Phosphorus Level 4.6 Magnesium Level 2.9 H Total Bilirubin 0.2 Direct Bilirubin 0.00 Indirect 0.2 Bilirubin Aspartate Amino 9 L Transf (AST/SGOT) Alanine < 6 L Aminotransferase (ALT/SGPT) Alkaline 208 H Phosphatase Troponin I < 0.012 Total Protein 8.2 H Albumin 4.2 Globulin 4.00 H Albumin/Globulin 1.05 Ratio Lipase 338 H Bedside Glucose > 595 *H Urine Color YELLOW Urine Clarity CLOUDY A Urine pH 6.0 Urine Specific 1.013 [place] Urine Ketones NEGATIVE Urine Nitrite NEGATIVE Urine Bilirubin NEGATIVE Urine NEGATIVE Urobilinogen Urine Leukocyte 3+ H Esterase Urine Microscopic 4 RBC Urine Microscopic > 182 H WBC Urine Bacteria FEW A Urine Hemoglobin 2+ H Urine Glucose 3+ H Urine Total NEGATIVE Protein Test 03/19/18 19:36 Bedside Glucose 572 *H HPI/ROS Admit Date/Time Admit Date/Time Hx of Present Illness Chief complaint: Dysuria, abnormal blood sugars This is a 63-year-old male with a history of diabetes mellitus chronic kidney disease hypertension and degenerative disc disease who comes to the emergency department with multiple complaints. Patient reports that he has been having dysuria lately. He states the urine smells foul. Patient also reports that his diabetes has been poorly controlled. He reports that he has been compliant with his insulin regimen of Lantus 60 units daily and NovoLog 25-35 units at mealtime. However he reports that despite this his blood sugars are running from the 300s-400s. He reports chronic back pain that is unchanged. He denies any fevers chest pain nausea vomiting or coughing. He does see the ear machine operator Dr. Matta for his chronic kidney disease. Allergies: Codeine, and unknown antibiotic Medications: See MAR ROS Const: Negative for fever, chills, weight gain or weight loss, fatigue, or diaphoresis Eyes : No pain discharge or redness or change in visual acuity ENT: No pain, sore throat, congestion, congestion, dysphagia or discharge Respiratory: No shortness of breath, cough, sputum, wheezing, or pleuritic pain Cardiovascular: No chest pain, palpitation, PND, or edema GI : no change in appetite, abdominal pain, nausea, vomiting, diarrhea, constipation, or change in the color his stool Genitourinary: As per HPI Musculoskeletal: No joint pain, back pain, neck pain, restricted range of motion in neck or joints Skin: No rash, bruising or hives Neuro: No headache, dizziness, syncope, seizure, focal weakness Endocrine: As per HPI Psych: No hallucination, depression, anxiety or suicidal ideation PMH/Family/Social Past Medical History CKD, diabetes mellitus, hypertension, degenerative disease Medications Current Medications Potassium Chloride/Sodium Chloride 1,000 ml @ 0 mls/hr Q0M IV ; Start 03/19/18 at 18:58 Potassium Chloride/Dextrose/ Sod Cl 1,000 ml @ 0 mls/hr Q0M IV ; Start 03/19/18 at 18:58 Potassium Chloride/Sodium Chloride 1,000 ml @ 0 mls/hr Q0M IV Last administered on 03/19/18at 19:44; Admin Dose 250 MLS/HR; Start 03/19/18 at 18:58 Potassium Chloride/Dextrose/ Sod Cl 1,000 ml @ 0 mls/hr Q0M IV ; Start 03/19/18 at 18:58 Sodium Chloride 1,000 ml @ 0 mls/hr Q0M IV ; Start 03/19/18 at 18:58 Dextrose/Sodium Chloride 1,000 ml @ 0 mls/hr Q0M IV ; Start 03/19/18 at 18:58 Insulin Human Regular 100 unit/ Sodium Chloride 101 ml @ 8.08 mls/hr ER DKA PROTOCOL IV Last administered on 03/19/18at 19:37; Admin Dose 8.08 MLS/HR; Start 03/19/18 at 19:00 Miscellaneous Information (* Miscellaneous Pharmacy Order) HYPOGLYCEMIA TREATMENT HYPOGLYCEM PROTOCOL PRN XX HYPOGLYCEMIA (BS<70); Start 03/19/18 at 19:00 Dextrose (D50w Syringe) 50 ml Q15M PRN IV DECREASED GLUCOSE; Start 03/19/18 at 19:00 Dextrose (D50w Syringe) 25 ml Q15M PRN IV DECREASED GLUCOSE; Start 03/19/18 at 19:00 Coded Allergies: codeine (Unverified Allergy, Unknown, 03/19/18) Uncoded Allergies: ANTIBIOTICS UNKNOWN (Allergy, Unknown, 03/19/18) PATIENT SAYS HIS ALLERGIC TO SOME OF THE ANTIBIOTICS Past Surgical History Back surgeries status post back injury Family History Significant Family History: no pertinent family hx Social History Alcohol Use: none Smoking Status: Never smoker Drug Use: none Exam/Review of Systems Vital Signs Vitals Vital Signs Date Temp Pulse Resp B/P (MAP) Pulse Ox O2 O2 Flow FiO2 Time Delivery Rate 03/19/18 90 19 127/44 100 Room Air 19:40 (71) 03/19/18 98.1 18:12 Exam Exam General: Patient is currently lying in bed he does not appear to be in acute distress HEENT: Atraumatic, normocephalic. The pupils are equal, round and reactive. E xtraocular motor are intact, mucous membranes dry Neck: Supple with full range of motion. No rigidity or meningismus Chest: Nontender Lungs: Clear to auscultation bilaterally no crackles rales or wheezing Heart: Normal S1-S2, Regular rhythm and rate. No overt murmurs appreciated auscultation Abdomen: Soft , nontender, nondistended , bowel sounds are present. No guarding no rebound tenderness , No masses or organomegaly. No costovertebral temporal angle mass Extremities: Normal to inspection, no edema no cyanosis Neurologic: Normal mental status, speech normal, cranial nerves II through XII a re intact, motor and sensory are intact, gait not assessed secondary to patient's lethargy Additional Comments PROCEDURE: XR Chest. CLINICAL INDICATION: Hyperglycemia TECHNIQUE: Single frontal view of the chest was obtained COMPARISON: None FINDINGS: The heart and mediastinum are within normal limits. The lungs are clear. There is no pleural effusion or pneumothorax. RPTAT: AA IMPRESSION: No acute disease. .Lorenzo Roman MD, MD Date Time Electronically viewed and signed by .Lorenzo Roman MD, on 03/19/2018 18:30 .S/ CC: SAMUEL KERNS MD [id number] EKG: Rhythm: Normal sinus rhythm ST Changes: No contiguous ST segment elevations T waves: No contiguous T wave inversions Impression: [No evidence of acute cardiac ischemia] JONAH ANDRADE Mar 19, 2018 20:25
[2018-03-19] MEDS ORDERED: IPRATROPIUM (NEB) 0.5 MG/2.5 ML AMP NEB PRN (20:30)
[2018-03-19] MEDS ORDERED: ALBUTEROL 0.083% (NEB) 2.5 MG/3 ML AMP NEB PRN (20:30)
[2018-03-19] MEDS ORDERED: BISACODYL (EC) 5 MG TAB PO PRN (20:30)
[2018-03-19] MEDS ORDERED: CEFTRIAXONE 1 GM/50 ML (PMX) 50 ML IVPB ONE (20:30)
[2018-03-19] MEDS ORDERED: DOCUSATE SODIUM 100 MG CAP PO PRN (20:30)
[2018-03-19] MEDS ORDERED: METOCLOPRAMIDE 10 MG INJ IV PRN (20:30)
--- NOTE | 2018-03-19 22:16 | CONS ---
Date/Time of Note Date/Time of Note DATE: 03/19/18 TIME: 22:09 Assessment/Plan Assessment/Plan Assessment/Plan 1. acute hyperkalemia due to RATNA 2. Hyponatremia due to hypovolemic Hyponatremia from DKA 3. acute Kidney injury on CKD III due to ATN + prerenal azotemia 4 Acute diabeitc ketoacidosis due to UTI + ? complaince 5. 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 H/o HTN 8. H/o HL Plan : Insulin gtt for DKA protocol IV abx for UTI S/p Kayexalate for hyperkalemia, IVF NS Expecting Improvement in Cr with Treatment of DKA Renal US urine studies has been ordered Thanks for Consultation, I will continue to follow up Result Diagram: 03/19/18 1756 03/19/18 1942 Results 24hrs Laboratory Tests Test 03/19/18 17:51 03/19/18 17:56 03/19/18 18:00 03/19/18 19:00 Blood Gas Blood venous Specimen Source Arterial Blood 03/19/2018 6:00: Date Drawn 10 PM Arterial Blood OTHER Gas Puncture Site Adryan Test N/A Venous Blood pH 7.328 L Venous Blood 34.9 L pCO2 (Temp Corrected) Venous Blood pO2 23.5 L (Temp Corrected) Venous Blood 17.9 L HCO3 Venous Blood 37.7 L Oxygen Saturation Venous Blood -7.1 L Base Excess Venous Blood 14.5 Total Hemoglobin Venous Blood 37.2 Oxyhemoglobin Venous Blood 0.4 Methemoglobin Blood Gas A-a O2 84.4 Differential Carboxyhemoglobi 0.8 n Blood Gas 37.0 Temperature Blood Gas ROOM AIR Modality FiO2 21.0 Blood Gas LBALIAN R.N. Critical Value Read Back Blood Gas MDA Notified Whom Blood Gas 03/19/2018 6:04: Notified Time 09 PM White Blood 16.2 H Count Red Blood Count 5.17 Hemoglobin 13.1 L Hematocrit 39.5 L Mean Corpuscular 76.4 L Volume Mean Corpuscular 25.3 L Hemoglobin Mean Corpuscular 33.2 Hemoglobin Anaya nt Red Cell 13.0 Distribution Width Platelet Count 507 H Mean Platelet 9.2 Volume Immature 0.600 H Granulocytes % Neutrophils % 78.1 H Lymphocytes % 14.4 L Monocytes % 5.3 Eosinophils % 1.2 Basophils % 0.4 Nucleated Red 0.0 Blood Cells % Immature 0.090 H Granulocytes # Neutrophils # 12.7 H Lymphocytes # 2.3 Monocytes # 0.9 Eosinophils # 0.2 Basophils # 0.1 Nucleated Red 0.0 Blood Cells # Prothrombin Time 13.6 Prothrombin Time 1.1 Ratio INR 1.03 International Normalized Ratio Activated 38.8 H Partial Thrombop last Time Sodium Level 122 L Potassium Level 5.2 H Chloride Level 90 L Carbon Dioxide 17 L Level Anion Gap 15 H Blood Urea 76 H Nitrogen Creatinine 2.10 H Est Glomerular 32 L Filtrat Rate mL/min Glucose Level 693 *H Hemoglobin A1c 11.9 H Calcium Level 9.4 Phosphorus Level 4.6 Magnesium Level 2.9 H Total Bilirubin 0.2 Direct Bilirubin 0.00 Indirect 0.2 Bilirubin Aspartate Amino 9 L Transf (AST/SGOT ) Alanine < 6 L Aminotransferase (ALT/SGPT) Alkaline 208 H Phosphatase Troponin I < 0.012 Total Protein 8.2 H Albumin 4.2 Globulin 4.00 H Albumin/Globulin 1.05 Ratio Lipase 338 H Bedside Glucose > 595 *H Urine Color YELLOW Urine Clarity CLOUDY A Urine pH 6.0 Urine Specific 1.013 [place] Urine Ketones NEGATIVE Urine Nitrite NEGATIVE Urine Bilirubin NEGATIVE Urine NEGATIVE Urobilinogen Urine Leukocyte 3+ H Esterase Urine 4 Microscopic RBC Urine > 182 H Microscopic WBC Urine Bacteria FEW A Urine Hemoglobin 2+ H Urine Glucose 3+ H Urine Total NEGATIVE Protein Test 03/19/18 19:36 03/19/18 19:42 03/19/18 20:32 03/19/18 20:58 Bedside Glucose 572 *H 479 *H Sodium Level 123 L Potassium Level 5.0 Chloride Level 94 L Carbon Dioxide 16 L Level Anion Gap 13 Blood Urea 72 H Nitrogen Creatinine 1.77 H Est Glomerular 39 L Filtrat Rate mL/min Glucose Level 620 *H Calcium Level 9.0 Phosphorus Level 3.9 Magnesium Level 2.7 H Blood Gas Blood venous Specimen Source Arterial Blood 03/19/2018 7:40: Date Drawn 00 PM Arterial Blood VENOUS LINE Gas Puncture Site Adryan Test N/A Venous Blood pH 7.328 L Venous Blood 34.0 L pCO2 (Temp Corrected) Venous Blood pO2 10.5 L (Temp Corrected) Venous Blood 17.4 L HCO3 Venous Blood -7.6 L Base Excess Venous Blood 12.9 Total Hemoglobin Venous Blood 13.1 Oxyhemoglobin Venous Blood 2.3 Methemoglobin Carboxyhemoglobi 0.3 n Blood Gas 37.0 Temperature Blood Gas Actual 20 Respiration Rate Blood Gas ROOM AIR Modality FiO2 21.0 Blood Gas Tania KELLEY RN Critical Value Read Back Blood Gas MM Notified Whom Blood Gas 03/19/2018 7:48: Notified Time 10 PM Test 03/19/18 21:12 POC Venous 2.0 Lactate Consultation Date/Type/Reason Admit Date/Time Mar 19, 2018 at 20:19 Initial Consult Date 03/19/2018 Type of Consult NEPHROLOGY Reason for Consultation acute hyperkalemia, acute kidney injury on CKD Requesting Provider: JONAH ANDRADE 24 HR Interval Summary Free Text/Dictation 63-year-old male with a history of diabetes mellitus chronic kidney disease III/IV due to DM and hypertension and degenerative disc disease who comes to the emergency department with multiple complaints. in ED he was noted to hve acute hyperkalemia pt had a BUN/Cr on admission 76/2.1, Na 122- he is also found to have acute diabetic ketoacidosis started on Insulin gtt and admitted to ICU for further care renal has been consulted for acute hyperkalemia, Hyponatremia, RATNA on CKD and acidosis. Constitutional: no complaints Exam/Review of Systems Vital Signs Vitals Vital Signs Date Temp Pulse Resp B/P (MAP) Pulse Ox O2 O2 Flow FiO2 Time Delivery Rate 03/19/18 93 18 137/68 99 Room Air 21:15 (91) 03/19/18 98.1 18:12 Exam Constitutional: alert, distress Psych: no complaints Eyes: nl conjunctiva ENMT: nl external ears & nose Neck: supple, non-tender Respiratory: congested cough, crackles/rales, diminished breath sounds Cardiovascular: regular rate and rhythm, nl pulses Gastrointestinal: soft, non-tender Musculoskeletal: nl extremities to inspection, swelling Extremities: normal pulses Neurological: PLANT GUIDE II-XII intact, nl mental status, nl speech, nl strength Skin: nl turgor Medications Medications Current Medications Potassium Chloride/Sodium Chloride 1,000 ml @ 0 mls/hr Q0M IV ; Start 03/19/18 at 18:58 Potassium Chloride/Dextrose/ Sod Cl 1,000 ml @ 0 mls/hr Q0M IV ; Start 03/19/18 at 18:58 Potassium Chloride/Sodium Chloride 1,000 ml @ 0 mls/hr Q0M IV Last administered on 03/19/18at 19:44; Admin Dose 250 MLS/HR; Start 03/19/18 at 18:58 Potassium Chloride/Dextrose/ Sod Cl 1,000 ml @ 0 mls/hr Q0M IV ; Start 03/19/18 at 18:58 Sodium Chloride 1,000 ml @ 0 mls/hr Q0M IV ; Start 03/19/18 at 18:58 Dextrose/Sodium Chloride 1,000 ml @ 0 mls/hr Q0M IV ; Start 03/19/18 at 18:58 Insulin Human Regular 100 unit/ Sodium Chloride 101 ml @ 8.08 mls/hr ER DKA PROTOCOL IV Last administered on 03/19/18at 19:37; Admin Dose 8.08 MLS/HR; Start 03/19/18 at 19:00 Miscellaneous Information (* Miscellaneous Pharmacy Order) HYPOGLYCEMIA TREATMENT HYPOGLYCEM PROTOCOL PRN XX HYPOGLYCEMIA (BS<70); Start 03/19/18 at 19:00 Dextrose (D50w Syringe) 50 ml Q15M PRN IV DECREASED GLUCOSE; Start 03/19/18 at 19:00 Dextrose (D50w Syringe) 25 ml Q15M PRN IV DECREASED GLUCOSE; Start 03/19/18 at 19:00 Ondansetron HCl (Zofran Inj) 4 mg Q6H PRN IV NAUSEA AND/OR VOMITING; Start 03/19/18 at 20:30 Metoclopramide HCl (Reglan) 10 mg Q6H PRN IV NAUSEA AND/OR VOMITING; Start 03/19/18 at 20:30 Albuterol (Proventil 0.083% (Neb)) 2.5 mg Q2H RESP THERAPY PRN NEB SHORTNESS OF BREATH; Start 03/19/18 at 20:30 Ipratropium [place] (Atrovent 0.02% (Neb)) 0.5 mg Q2H RESP THERAPY PRN NEB SHORTNESS OF BREATH; Start 03/19/18 at 20:30 Acetaminophen (Tylenol Liquid) 650 mg Q6H PRN PO PAIN LEVEL 1-3 OR FEVER; Start 03/19/18 at 20:30 Morphine Sulfate (morphine) 1 mg Q4H PRN IV PAIN LEVEL 7-10; Start 03/19/18 at 20:30 Docusate Sodium (Colace) 100 mg Q12H PRN PO CONSTIPATION; Start 03/19/18 at 20:30 Bisacodyl (Dulcolax) 5 mg DAILY PRN PO CONSTIPATION; Start 03/19/18 at 20:30 Pantoprazole (Protonix Iv) 40 mg DAILY@06 IV ; Start 03/20/18 at 06:00 Heparin Sodium (Porcine) (Heparin (5000 Units/1ml)) 5,000 unit Q8 SC ; Start 03/19/18 at 22:00 TALITA DICKENS MD Mar 19, 2018 22:16
[2018-03-19 22:30] VITALS: PULSE 91; RESP 14
[2018-03-19] MEDS: DEXTROSE 10 %/0.45 % NACL 1,000 ML IV SCH (22:32)
[2018-03-19] MEDS: HEPARIN 5,000 UNIT/1 ML VIAL SC SCH (22:33)
[2018-03-19] MEDS: ACETAMINOPHEN 650MG/20.3ML CUP PO PRN (22:42)
[2018-03-19] MEDS: morphine 2 MG INJ IV PRN (22:42)
[2018-03-19 22:44] VITALS: Ht 165.1 cm; Wt 74.2 kg
[2018-03-19 23:00] VITALS: BP 144/91; PULSE 90; RESP 18
[2018-03-19 23:30] VITALS: BP 122/77; PULSE 88; RESP 16
[2018-03-20] VITALS (27 sets, daily range): BP systolic 89–161; BP diastolic 46–78; PULSE 67–95; RESP 12–24
[2018-03-20] MEDS: DEXTROSE 10 %/0.45 % NACL 1,000 ML IV SCH (02:40)
[2018-03-20] MEDS: HEPARIN 5,000 UNIT/1 ML VIAL SC SCH ×3 (05:14→20:56)
[2018-03-20] MEDS: PANTOPRAZOLE 40 MG INJ IV SCH (05:15)
[2018-03-20] MEDS: INSULIN REGULAR, HUMAN 100 UNIT in SOD CHLORIDE 0.9% 100 ML IV SCH ×2 (05:24)
[2018-03-20] MEDS: D10/0.45% NACL + KCL 30 MEQ 1,000 ML IV SCH ×2 (07:26→11:31)
[2018-03-20] MEDS: ASPIRIN (EC) 81 MG TAB PO SCH (09:38)
[2018-03-20] MEDS: morphine 2 MG INJ IV PRN (09:45)
--- NOTE | 2018-03-20 09:53 | CONS ---
Date/Time of Note Date/Time of Note DATE: 03/20/18 TIME: 09:53 Assessment/Plan Assessment/Plan Assessment/Plan 1. acute hyperkalemia due to RATNA- Resolved 2. Hyponatremia due to hypovolemic Hyponatremia from DKA- Improved 3. acute Kidney injury on CKD III due to ATN + prerenal azotemia 4 Acute diabeitc ketoacidosis due to UTI + ? complaince 5. 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 H/o HTN 8. H/o HL Plan : Insulin gtt for DKA protocol IV abx for UTI, Renally dose all abx and monitor electrolyte s BUN/Cr 58/1.64 Expecting Improvement in Cr with Treatment of DKA Renal US urine studies has been ordered will follow up Result Diagram: 03/20/18 0600 03/20/18 0600 Results 24hrs Laboratory Tests Test 03/19/18 17:51 03/19/18 17:56 03/19/18 18:00 03/19/18 19:00 Blood Gas Blood venous Specimen Source Arterial Blood 03/19/2018 6:00: Date Drawn 10 PM Arterial Blood OTHER Gas Puncture Site Adryan Test N/A Venous Blood pH 7.328 L Venous Blood 34.9 L pCO2 (Temp Corrected ) Venous Blood 23.5 L pO2 (Temp Corrected ) Venous Blood 17.9 L HCO3 Venous Blood 37.7 L Oxygen Saturation Venous Blood -7.1 L Base Excess Venous Blood 14.5 Total Hemoglobin Venous Blood 37.2 Oxyhemoglobin Venous Blood 0.4 Methemoglobin Blood Gas A-a 84.4 O2 Differential Carboxyhemoglob 0.8 in Blood Gas 37.0 Temperature Blood Gas ROOM AIR Modality FiO2 21.0 Blood Gas LBALIAN R.N. Critical Value Read Back Blood Gas MDA Notified Whom Blood Gas 03/19/2018 6:04: Notified Time 09 PM White Blood 16.2 H Count Red Blood Count 5.17 Hemoglobin 13.1 L Hematocrit 39.5 L Mean 76.4 L Corpuscular Volume Mean 25.3 L Corpuscular Hemoglobin Mean 33.2 Corpuscular Hemoglobin Conc ent Red Cell 13.0 Distribution Width Platelet Count 507 H Mean Platelet 9.2 Volume Immature 0.600 H Granulocytes % Neutrophils % 78.1 H Lymphocytes % 14.4 L Monocytes % 5.3 Eosinophils % 1.2 Basophils % 0.4 Nucleated Red 0.0 Blood Cells % Immature 0.090 H Granulocytes # Neutrophils # 12.7 H Lymphocytes # 2.3 Monocytes # 0.9 Eosinophils # 0.2 Basophils # 0.1 Nucleated Red 0.0 Blood Cells # Prothrombin 13.6 Time Prothrombin 1.1 Time Ratio INR 1.03 International Normalized Rati o Activated 38.8 H Partial Thrombo plast Time Sodium Level 122 L Potassium Level 5.2 H Chloride Level 90 L Carbon Dioxide 17 L Level Anion Gap 15 H Blood Urea 76 H Nitrogen Creatinine 2.10 H Est Glomerular 32 L Filtrat Rate mL/min Glucose Level 693 *H Hemoglobin A1c 11.9 H Calcium Level 9.4 Phosphorus 4.6 Level Magnesium Level 2.9 H Total Bilirubin 0.2 Direct 0.00 Bilirubin Indirect 0.2 Bilirubin Aspartate Amino 9 L Transf (AST/SGO T) Alanine < 6 L Aminotransferas e (ALT/SGPT) Alkaline 208 H Phosphatase Troponin I < 0.012 Total Protein 8.2 H Albumin 4.2 Globulin 4.00 H Albumin/Globuli 1.05 n Ratio Lipase 338 H Bedside Glucose > 595 *H Urine Color YELLOW Urine Clarity CLOUDY A Urine pH 6.0 Urine Specific 1.013 [place] Urine Ketones NEGATIVE Urine Nitrite NEGATIVE Urine Bilirubin NEGATIVE Urine NEGATIVE Urobilinogen Urine Leukocyte 3+ H Esterase Urine 4 Microscopic RBC Urine > 182 H Microscopic WBC Urine Bacteria FEW A Urine 2+ H Hemoglobin Urine Glucose 3+ H Urine Total NEGATIVE Protein Test 03/19/18 19:36 03/19/18 19:42 03/19/18 20:32 03/19/18 20:58 Bedside Glucose 572 *H 479 *H Sodium Level 123 L Potassium Level 5.0 Chloride Level 94 L Carbon Dioxide 16 L Level Anion Gap 13 Blood Urea 72 H Nitrogen Creatinine 1.77 H Est Glomerular 39 L Filtrat Rate mL/min Glucose Level 620 *H Calcium Level 9.0 Phosphorus 3.9 Level Magnesium Level 2.7 H Blood Gas Blood venous Specimen Source Arterial Blood 03/19/2018 7:40 Date Drawn :00 PM Arterial Blood VENOUS LINE Gas Puncture Site Adryan Test N/A Venous Blood pH 7.328 L Venous Blood 34.0 L pCO2 (Temp Corrected ) Venous Blood 10.5 L pO2 (Temp Corrected ) Venous Blood 17.4 L HCO3 Venous Blood -7.6 L Base Excess Venous Blood 12.9 Total Hemoglobin Venous Blood 13.1 Oxyhemoglobin Venous Blood 2.3 Methemoglobin Carboxyhemoglob 0.3 in Blood Gas 37.0 Temperature Blood Gas 20 Actual Respiration Rat e Blood Gas ROOM AIR Modality FiO2 21.0 Blood Gas Tania KELLEY RN Critical Value Read Back Blood Gas MM Notified Whom Blood Gas 03/19/2018 7:48 Notified Time :10 PM Test 03/19/18 21:12 03/19/18 21:59 03/19/18 22:00 03/19/18 22:58 POC Venous 2.0 Lactate Bedside Glucose 281 H Sodium Level 130 L Potassium Level 4.9 Chloride Level 102 Carbon Dioxide 17 L Level Anion Gap 11 Blood Urea 69 H Nitrogen Creatinine 1.85 H Est Glomerular 37 L Filtrat Rate mL/min Glucose Level 287 #H Calcium Level 9.2 Phosphorus 2.8 Level Magnesium Level 3.3 H Blood Gas Blood venous Specimen Source Arterial Blood 03/19/2018 11:4 Date Drawn 0:17 PM Arterial Blood VENOUS LINE Gas Puncture Site Adryan Test N/A Venous Blood pH 7.318 L Venous Blood 33.1 L pCO2 (Temp Corrected ) Venous Blood 35.1 H pO2 (Temp Corrected ) Venous Blood 16.6 L HCO3 Venous Blood 62.7 Oxygen Saturation Venous Blood -8.4 L Base Excess Venous Blood 13.7 Total Hemoglobin Venous Blood 62.4 Oxyhemoglobin Venous Blood 0.3 Methemoglobin Carboxyhemoglob 0.1 in Blood Gas 37.0 Temperature Blood Gas ROOM AIR Modality FiO2 21.0 Blood Gas UP Notified Whom Blood Gas 03/19/2018 11:5 Notified Time 2:21 PM Test 03/19/18 23:03 03/20/18 00:17 03/20/18 01:15 03/20/18 01:48 Bedside Glucose 338 H 182 228 H Sodium Level 131 L Potassium Level 5.4 H Chloride Level 106 Carbon Dioxide 16 L Level Anion Gap 9 Blood Urea 67 H Nitrogen Creatinine 1.79 H Est Glomerular 39 L Filtrat Rate mL/min Glucose Level 227 H Lactic Acid 1.1 Level Calcium Level 8.7 Phosphorus 4.4 Level Magnesium Level 3.1 H Test 03/20/18 01:52 03/20/18 02:58 03/20/18 03:14 03/20/18 04:10 Bedside Glucose 220 188 190 Blood Gas Blood venous Specimen Source Arterial Blood 03/20/2018 2:15: Date Drawn 33 AM Arterial Blood VENOUS LINE Gas Puncture Site Adryan Test N/A Venous Blood pH 7.297 L Venous Blood 30.9 L pCO2 (Temp Corrected ) Venous Blood 56.8 H pO2 (Temp Corrected ) Venous Blood 14.8 L HCO3 Venous Blood 86.7 H Oxygen Saturation Venous Blood -10.5 L Base Excess Venous Blood 12.1 Total Hemoglobin Venous Blood 86.4 Oxyhemoglobin Venous Blood 0.3 Methemoglobin Carboxyhemoglob 0.1 in Blood Gas 37.0 Temperature Blood Gas ROOM AIR Modality FiO2 21.0 Blood Gas MG Notified Whom Blood Gas 03/20/2018 2:27: Notified Time 10 AM Test 03/20/18 05:18 03/20/18 06:00 03/20/18 06:21 03/20/18 07:00 Bedside Glucose 197 128 185 White Blood 13.0 H Count Red Blood Count 4.41 L Hemoglobin 11.2 L Hematocrit 33.7 L Mean 76.4 L Corpuscular Volume Mean 25.4 L Corpuscular Hemoglobin Mean 33.2 Corpuscular Hemoglobin Conc ent Red Cell 13.1 Distribution Width Platelet Count 409 Mean Platelet 8.6 Volume Immature 0.500 H Granulocytes % Neutrophils % 71.9 Lymphocytes % 20.2 Monocytes % 5.2 Eosinophils % 1.9 Basophils % 0.3 Nucleated Red 0.0 Blood Cells % Immature 0.070 H Granulocytes # Neutrophils # 9.3 H Lymphocytes # 2.6 Monocytes # 0.7 Eosinophils # 0.3 Basophils # 0.0 Nucleated Red 0.0 Blood Cells # Sodium Level 135 Potassium Level 4.5 Chloride Level 112 H Carbon Dioxide 17 L Level Anion Gap 6 Blood Urea 58 H Nitrogen Creatinine 1.64 H Est Glomerular 43 L Filtrat Rate mL/min Glucose Level 133 # Calcium Level 7.7 L Phosphorus 4.5 Level Magnesium Level 2.7 H Lipase 229 Test 03/20/18 08:37 03/20/18 09:33 Bedside Glucose 234 H 198 Consultation Date/Type/Reason Admit Date/Time Mar 19, 2018 at 20:19 Initial Consult Date Type of Consult NEPHROLOGY Requesting Provider: JONAH ANDRADE 24 HR Interval Summary Free Text/Dictation BUN/Cr improving DKA treatment, BUN/Cr 58/1.64 Exam/Review of Systems Vital Signs Vitals Vital Signs Date Temp Pulse Resp B/P (MAP) Pulse Ox O2 O2 Flow FiO2 Time Delivery Rate 03/20/18 98.0 83 102/77 99 Room Air 08:00 (85) 03/20/18 18 07:00 03/20/18 21 02:08 Intake and Output 03/19/18 03/19/18 03/20/18 1515:00 23:00 07:00 IntakeIntake Total 3028.16 ml 2064.64 ml OutputOutput Total 1100 ml 890 ml BalanceBalance 1928.16 ml 1174.64 ml Exam Constitutional: alert, distress Respiratory: congested cough, crackles/rales, diminished breath sounds Cardiovascular: regular rate and rhythm, nl pulses Gastrointestinal: soft, non-tender Musculoskeletal: nl extremities to inspection, swelling Extremities: normal pulses 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, nl mental status, nl speech, nl strength Medications Medications Current Medications Potassium Chloride/Sodium Chloride 1,000 ml @ 0 mls/hr Q0M IV ; Start 03/19/18 at 18:58 Potassium Chloride/Dextrose/ Sod Cl 1,000 ml @ 0 mls/hr Q0M IV ; Start 03/19/18 at 18:58 Potassium Chloride/Sodium Chloride 1,000 ml @ 0 mls/hr Q0M IV Last administered on 03/19/18at 19:44; Admin Dose 250 MLS/HR; Start 03/19/18 at 18:58 Potassium Chloride/Dextrose/ Sod Cl 1,000 ml @ 0 mls/hr Q0M IV Last administered on 03/20/18at 07:26; Admin Dose 250 MLS/HR; Start 03/19/18 at 18:58 Sodium Chloride 1,000 ml @ 0 mls/hr Q0M IV Last administered on 03/20/18at 02:41; Admin Dose 100 MLS/HR; Start 03/19/18 at 18:58 Dextrose/Sodium Chloride 1,000 ml @ 0 mls/hr Q0M IV Last administered on 03/20/18at 02:40; Admin Dose 150 MLS/HR; Start 03/19/18 at 18:58 Insulin Human Regular 100 unit/ Sodium Chloride 101 ml @ 8.08 mls/hr ER DKA PROTOCOL IV Last administered on 03/20/18at 05:24; Admin Dose 8.08 MLS/HR; Start 03/19/18 at 19:00 Miscellaneous Information (* Miscellaneous Pharmacy Order) HYPOGLYCEMIA TREATMENT HYPOGLYCEM PROTOCOL PRN XX HYPOGLYCEMIA (BS<70); Start 03/19/18 at 19:00 Dextrose (D50w Syringe) 50 ml Q15M PRN IV DECREASED GLUCOSE; Start 03/19/18 at 19:00 Dextrose (D50w Syringe) 25 ml Q15M PRN IV DECREASED GLUCOSE; Start 03/19/18 at 19:00 Ondansetron HCl (Zofran Inj) 4 mg Q6H PRN IV NAUSEA AND/OR VOMITING; Start 03/19/18 at 20:30 Metoclopramide HCl (Reglan) 10 mg Q6H PRN IV NAUSEA AND/OR VOMITING; Start 03/19/18 at 20:30 Albuterol (Proventil 0.083% (Neb)) 2.5 mg Q2H RESP THERAPY PRN NEB SHORTNESS OF BREATH; Start 03/19/18 at 20:30 Ipratropium [place] (Atrovent 0.02% (Neb)) 0.5 mg Q2H RESP THERAPY PRN NEB SHORTNESS OF BREATH; Start 03/19/18 at 20:30 Acetaminophen (Tylenol Liquid) 650 mg Q6H PRN PO PAIN LEVEL 1-3 OR FEVER Last administered on 03/19/18at 22:42; Admin Dose 650 MG; Start 03/19/18 at 20:30 Morphine Sulfate (morphine) 1 mg Q4H PRN IV PAIN LEVEL 7-10 Last administered on 03/20/18at 09:45; Admin Dose 1 MG; Start 03/19/18 at 20:30 Docusate Sodium (Colace) 100 mg Q12H PRN PO CONSTIPATION; Start 03/19/18 at 20:30 Bisacodyl (Dulcolax) 5 mg DAILY PRN PO CONSTIPATION; Start 03/19/18 at 20:30 Pantoprazole (Protonix Iv) 40 mg DAILY@06 IV Last administered on 03/20/18at 05:15; Admin Dose 40 MG; Start 03/20/18 at 06:00 Heparin Sodium (Porcine) (Heparin (5000 Units/1ml)) 5,000 unit Q8 SC Last admi nistered on 03/19/18at 22:33; Admin Dose 5,000 UNIT; Start 03/19/18 at 22:00 Aspirin (Halfprin) 81 mg DAILY PO Last administered on 03/20/18at 09:38; Admin Dose 81 MG; Start 03/20/18 at 09:00 Carvedilol (Coreg) 6.25 mg BID PO Last administered on 03/20/18at 09:38; Admin Dose 6.25 MG; Start 03/20/18 at 09:00 TALITA DICKENS MD Mar 20, 2018 09:53
[2018-03-20] MEDS ORDERED: GLUCOSE GEL 15 GRAM TUBE PO PRN ×2 (10:30)
[2018-03-20] MEDS ORDERED: DEXTROSE 50% 50 ML SYRINGE IV PRN ×2 (10:30)
[2018-03-20] MEDS ORDERED: GLUCAGON 1 MG INJ IM PRN (10:30)
[2018-03-20] MEDS ORDERED: GLUCOSE GEL 15 GRAM TUBE BUCCAL PRN (10:30)
[2018-03-20] MEDS ORDERED: INSULIN GLARGINE [LANTus] (100 UNITS/ML) SYG SC SCH (11:30)
[2018-03-20] MEDS: INSULIN ASPART [NOVOLOG] 3 ML PEN SC SCH ×4 (11:30→20:56)
[2018-03-20] MEDS ORDERED: INSULIN ASPART [NOVOLOG] 3 ML PEN SC SCH (11:30)
--- NOTE | 2018-03-20 16:21 | PN ---
Date/Time of Note Date/Time of Note DATE: 03/20/18 TIME: 16:19 Assessment/Plan VTE Prophylaxis Risk score (from Nsg)>0 risk: 3 SCD applied (from Ns): Yes Pharmacological prophylaxis: heparin Lines/Catheters IV Catheter Type (from Nrsg): Peripheral IV Central line still needed: Yes Urinary Cath still in place: Yes Reason Cath still needed: urinary retention Assessment/Plan Hospital Course 63 yo male with DM presnets with DKA now resolved - Transition to basal/bolus Result Diagram: 03/20/18 0600 03/20/18 0600 Results 24hrs Laboratory Tests Test 03/19/18 17:51 03/19/18 17:56 03/19/18 18:00 03/19/18 19:00 Blood Gas Blood venous Specimen Source Arterial Blood 03/19/2018 6:00: Date Drawn 10 PM Arterial Blood OTHER Gas Puncture Site Adryan Test N/A Venous Blood pH 7.328 L Venous Blood 34.9 L pCO2 (Temp Corrected ) Venous Blood 23.5 L pO2 (Temp Corrected ) Venous Blood 17.9 L HCO3 Venous Blood 37.7 L Oxygen Saturation Venous Blood -7.1 L Base Excess Venous Blood 14.5 Total Hemoglobin Venous Blood 37.2 Oxyhemoglobin Venous Blood 0.4 Methemoglobin Blood Gas A-a 84.4 O2 Differential Carboxyhemoglob 0.8 in Blood Gas 37.0 Temperature Blood Gas ROOM AIR Modality FiO2 21.0 Blood Gas LBALIAN R.N. Critical Value Read Back Blood Gas MDA Notified Whom Blood Gas 03/19/2018 6:04: Notified Time 09 PM White Blood 16.2 H Count Red Blood Count 5.17 Hemoglobin 13.1 L Hematocrit 39.5 L Mean 76.4 L Corpuscular Volume Mean 25.3 L Corpuscular Hemoglobin Mean 33.2 Corpuscular Hemoglobin Conc ent Red Cell 13.0 Distribution Width Platelet Count 507 H Mean Platelet 9.2 Volume Immature 0.600 H Granulocytes % Neutrophils % 78.1 H Lymphocytes % 14.4 L Monocytes % 5.3 Eosinophils % 1.2 Basophils % 0.4 Nucleated Red 0.0 Blood Cells % Immature 0.090 H Granulocytes # Neutrophils # 12.7 H Lymphocytes # 2.3 Monocytes # 0.9 Eosinophils # 0.2 Basophils # 0.1 Nucleated Red 0.0 Blood Cells # Prothrombin 13.6 Time Prothrombin 1.1 Time Ratio INR 1.03 International Normalized Rati o Activated 38.8 H Partial Thrombo plast Time Sodium Level 122 L Potassium Level 5.2 H Chloride Level 90 L Carbon Dioxide 17 L Level Anion Gap 15 H Blood Urea 76 H Nitrogen Creatinine 2.10 H Est Glomerular 32 L Filtrat Rate mL/min Glucose Level 693 *H Hemoglobin A1c 11.9 H Calcium Level 9.4 Phosphorus 4.6 Level Magnesium Level 2.9 H Total Bilirubin 0.2 Direct 0.00 Bilirubin Indirect 0.2 Bilirubin Aspartate Amino 9 L Transf (AST/SGO T) Alanine < 6 L Aminotransferas e (ALT/SGPT) Alkaline 208 H Phosphatase Troponin I < 0.012 Total Protein 8.2 H Albumin 4.2 Globulin 4.00 H Albumin/Globuli 1.05 n Ratio Lipase 338 H Bedside Glucose > 595 *H Urine Color YELLOW Urine Clarity CLOUDY A Urine pH 6.0 Urine Specific 1.013 [place] Urine Ketones NEGATIVE Urine Nitrite NEGATIVE Urine Bilirubin NEGATIVE Urine NEGATIVE Urobilinogen Urine Leukocyte 3+ H Esterase Urine 4 Microscopic RBC Urine > 182 H Microscopic WBC Urine Bacteria FEW A Urine 2+ H Hemoglobin Urine Glucose 3+ H Urine Total NEGATIVE Protein Test 03/19/18 19:36 03/19/18 19:42 03/19/18 20:32 03/19/18 20:58 Bedside Glucose 572 *H 479 *H Sodium Level 123 L Potassium Level 5.0 Chloride Level 94 L Carbon Dioxide 16 L Level Anion Gap 13 Blood Urea 72 H Nitrogen Creatinine 1.77 H Est Glomerular 39 L Filtrat Rate mL/min Glucose Level 620 *H Calcium Level 9.0 Phosphorus 3.9 Level Magnesium Level 2.7 H Blood Gas Blood venous Specimen Source Arterial Blood 03/19/2018 7:40 Date Drawn :00 PM Arterial Blood VENOUS LINE Gas Puncture Site Adryan Test N/A Venous Blood pH 7.328 L Venous Blood 34.0 L pCO2 (Temp Corrected ) Venous Blood 10.5 L pO2 (Temp Corrected ) Venous Blood 17.4 L HCO3 Venous Blood -7.6 L Base Excess Venous Blood 12.9 Total Hemoglobin Venous Blood 13.1 Oxyhemoglobin Venous Blood 2.3 Methemoglobin Carboxyhemoglob 0.3 in Blood Gas 37.0 Temperature Blood Gas 20 Actual Respiration Rat e Blood Gas ROOM AIR Modality FiO2 21.0 Blood Gas Tania KELLEY RN Critical Value Read Back Blood Gas MM Notified Whom Blood Gas 03/19/2018 7:48 Notified Time :10 PM Test 03/19/18 21:12 03/19/18 21:59 03/19/18 22:00 03/19/18 22:58 POC Venous 2.0 Lactate Bedside Glucose 281 H Sodium Level 130 L Potassium Level 4.9 Chloride Level 102 Carbon Dioxide 17 L Level Anion Gap 11 Blood Urea 69 H Nitrogen Creatinine 1.85 H Est Glomerular 37 L Filtrat Rate mL/min Glucose Level 287 #H Calcium Level 9.2 Phosphorus 2.8 Level Magnesium Level 3.3 H Blood Gas Blood venous Specimen Source Arterial Blood 03/19/2018 11:4 Date Drawn 0:17 PM Arterial Blood VENOUS LINE Gas Puncture Site Adryan Test N/A Venous Blood pH 7.318 L Venous Blood 33.1 L pCO2 (Temp Corrected ) Venous Blood 35.1 H pO2 (Temp Corrected ) Venous Blood 16.6 L HCO3 Venous Blood 62.7 Oxygen Saturation Venous Blood -8.4 L Base Excess Venous Blood 13.7 Total Hemoglobin Venous Blood 62.4 Oxyhemoglobin Venous Blood 0.3 Methemoglobin Carboxyhemoglob 0.1 in Blood Gas 37.0 Temperature Blood Gas ROOM AIR Modality FiO2 21.0 Blood Gas UP Notified Whom Blood Gas 03/19/2018 11:5 Notified Time 2:21 PM Test 03/19/18 23:03 03/20/18 00:17 03/20/18 01:15 03/20/18 01:48 Bedside Glucose 338 H 182 228 H Sodium Level 131 L Potassium Level 5.4 H Chloride Level 106 Carbon Dioxide 16 L Level Anion Gap 9 Blood Urea 67 H Nitrogen Creatinine 1.79 H Est Glomerular 39 L Filtrat Rate mL/min Glucose Level 227 H Lactic Acid 1.1 Level Calcium Level 8.7 Phosphorus 4.4 Level Magnesium Level 3.1 H Test 03/20/18 01:52 03/20/18 02:58 03/20/18 03:14 03/20/18 04:10 Bedside Glucose 220 188 190 Blood Gas Blood venous Specimen Source Arterial Blood 03/20/2018 2:15: Date Drawn 33 AM Arterial Blood VENOUS LINE Gas Puncture Site Adryan Test N/A Venous Blood pH 7.297 L Venous Blood 30.9 L pCO2 (Temp Corrected ) Venous Blood 56.8 H pO2 (Temp Corrected ) Venous Blood 14.8 L HCO3 Venous Blood 86.7 H Oxygen Saturation Venous Blood -10.5 L Base Excess Venous Blood 12.1 Total Hemoglobin Venous Blood 86.4 Oxyhemoglobin Venous Blood 0.3 Methemoglobin Carboxyhemoglob 0.1 in Blood Gas 37.0 Temperature Blood Gas ROOM AIR Modality FiO2 21.0 Blood Gas MG Notified Whom Blood Gas 03/20/2018 2:27: Notified Time 10 AM Test 03/20/18 05:18 03/20/18 06:00 03/20/18 06:21 03/20/18 07:00 Bedside Glucose 197 128 185 White Blood 13.0 H Count Red Blood Count 4.41 L Hemoglobin 11.2 L Hematocrit 33.7 L Mean 76.4 L Corpuscular Volume Mean 25.4 L Corpuscular Hemoglobin Mean 33.2 Corpuscular Hemoglobin Conc ent Red Cell 13.1 Distribution Width Platelet Count 409 Mean Platelet 8.6 Volume Immature 0.500 H Granulocytes % Neutrophils % 71.9 Lymphocytes % 20.2 Monocytes % 5.2 Eosinophils % 1.9 Basophils % 0.3 Nucleated Red 0.0 Blood Cells % Immature 0.070 H Granulocytes # Neutrophils # 9.3 H Lymphocytes # 2.6 Monocytes # 0.7 Eosinophils # 0.3 Basophils # 0.0 Nucleated Red 0.0 Blood Cells # Sodium Level 135 Potassium Level 4.5 Chloride Level 112 H Carbon Dioxide 17 L Level Anion Gap 6 Blood Urea 58 H Nitrogen Creatinine 1.64 H Est Glomerular 43 L Filtrat Rate mL/min Glucose Level 133 # Calcium Level 7.7 L Phosphorus 4.5 Level Magnesium Level 2.7 H Lipase 229 Test 03/20/18 08:37 03/20/18 09:33 03/20/18 10:45 03/20/18 10:47 Bedside Glucose 234 H 198 245 H Urine 0.0 Eosinophils % Urine Random 33.49 Creatinine Urine Random 36 Sodium Urine 0.74 Protein/Creatin ine Ratio Urine Total 25.0 H Protein Test 03/20/18 12:15 03/20/18 13:54 03/20/18 15:18 03/20/18 16:13 Bedside Glucose 237 H 221 H 276 H 312 H Subjective 24 Hr Interval Summary Free Text/Dictation DKA resolved, no symptoms reports adherence to high dose of insulin as outpatient Exam/Review of Systems Vital Signs Vitals Vital Signs Date Temp Pulse Resp B/P (MAP) Pulse Ox O2 O2 Flow FiO2 Time Delivery Rate 03/20/18 84 16:00 03/20/18 98.0 102/77 99 Room Air 08:00 (85) 03/20/18 18 07:00 03/20/18 21 02:08 Intake and Output 03/19/18 03/19/18 03/20/18 1515:00 23:00 07:00 IntakeIntake Total 3028.16 ml 2064.64 ml OutputOutput Total 1100 ml 890 ml BalanceBalance 1928.16 ml 1174.64 ml Medications Medications Current Medications Ondansetron HCl (Zofran Inj) 4 mg Q6H PRN IV NAUSEA AND/OR VOMITING; Start 03/19/18 at 20:30 Metoclopramide HCl (Reglan) 10 mg Q6H PRN IV NAUSEA AND/OR VOMITING; Start 03/19/18 at 20:30 Albuterol (Proventil 0.083% (Neb)) 2.5 mg Q2H RESP THERAPY PRN NEB SHORTNESS OF BREATH; Start 03/19/18 at 20:30 Ipratropium [place] (Atrovent 0.02% (Neb)) 0.5 mg Q2H RESP THERAPY PRN NEB SHORTNESS OF BREATH; Start 03/19/18 at 20:30 Acetaminophen (Tylenol Liquid) 650 mg Q6H PRN PO PAIN LEVEL 1-3 OR FEVER Last administered on 03/19/18at 22:42; Admin Dose 650 MG; Start 03/19/18 at 20:30 Morphine Sulfate (morphine) 1 mg Q4H PRN IV PAIN LEVEL 7-10 Last administered on 03/20/18at 09:45; Admin Dose 1 MG; Start 03/19/18 at 20:30 Docusate Sodium (Colace) 100 mg Q12H PRN PO CONSTIPATION; Start 03/19/18 at 20:30 Bisacodyl (Dulcolax) 5 mg DAILY PRN PO CONSTIPATION; Start 03/19/18 at 20:30 Pantoprazole (Protonix Iv) 40 mg DAILY@06 IV Last administered on 03/20/18at 05:15; Admin Dose 40 MG; Start 03/20/18 at 06:00 Heparin Sodium (Porcine) (Heparin (5000 Units/1ml)) 5,000 unit Q8 SC Last administered on 03/19/18at 22:33; Admin Dose 5,000 UNIT; Start 03/19/18 at 22:00 Aspirin (Halfprin) 81 mg DAILY PO Last administered on 03/20/18at 09:38; Admin Dose 81 MG; Start 03/20/18 at 09:00 Carvedilol (Coreg) 6.25 mg BID PO Last administered on 03/20/18at 09:38; Admin Dose 6.25 MG; Start 03/20/18 at 09:00 Insulin Glargine (Lantus) 15 units DAILY@0800 SC Last administered on 03/20/18at 12:23; Admin Dose 15 UNITS; Start 03/20/18 at 11:30 Insulin Aspart (Novolog Insulin Pen) 5 unit WITH MEALS SC ; Start 03/20/18 at 11:30 Insulin Aspart (Novolog Insulin Pen) NOVOLOG *MODERATE* ALGORITHM WITH MEALS BEDTIME SC ; Start 03/20/18 at 11:30 Miscellaneous Information 1 ea NOTE XX ; Start 03/20/18 at 10:30 Glucose (Glutose) 15 gm Q15M PRN PO DECREASED GLUCOSE; Start 03/20/18 at 10:30 Glucose (Glutose) 22.5 gm Q15M PRN PO DECREASED GLUCOSE; Start 03/20/18 at 10:30 Dextrose (D50w Syringe) 25 ml Q15M PRN IV DECREASED GLUCOSE; Start 03/20/18 at 10:30 Dextrose (D50w Syringe) 50 ml Q15M PRN IV DECREASED GLUCOSE; Start 03/20/18 at 10:30 Glucagon (Glucagen) 1 mg Q15M PRN IM DECREASED GLUCOSE; Start 03/20/18 at 10:30 Glucose (Glutose) 15 gm Q15M PRN BUCCAL DECREASED GLUCOSE; Start 03/20/18 at 10:30 Ibuprofen (Motrin) 800 mg Q6H PRN PO MILD PAIN LEVEL 1-3; Start 03/20/18 at 16:30 SONAM PERLA MD Mar 20, 2018 16:21
[2018-03-20] MEDS ORDERED: IBUPROFEN 800 MG TAB PO PRN (16:30)
--- NOTE | 2018-03-20 18:15 | NUR ---
END OF SHIFT NOTE: DKA RESOLVED TODAY, LANTUS GIVEN AT 1216 PER MD ORDERS. INSULIN GTT AND IV FLUIDS DC'D AT 1600 PER PROTOCOL AND MD ORDERS. PT ALERT OX4. PT REFUSED HEPARIN SQ DOSE, DR. PERLA NOTIFIED. POSITIVE BLOOD CULTURES GRAM + COCCI IN PAIRS AND CHAINS NOTED TODAY, DR. ZAMAN NOTIFIED. UA SENT TODAY FOR MULTIPLE URINE LAB ORDERS. BARNES CATHETER WILL BE DC'D AFTER PT EATS DINNER, SEE I/O FOR URINE OUTPUT >2000 OUT THIS SHIFT. REPORT GIVEN TO MARGARITA JJ FOR TRANSFER TO ROOM 2272. PT CHECKED ON HOURLY AND PRN BY NURSING STAFF.
--- NOTE | 2018-03-20 18:50 | NUR ---
RN NOTES RECEIVED PT FROM ICU TO ROOM 4795. PT IS ALERT AND ORIENTED, IN NO DISTRESS, VS WITHIN NORMAL LIMITS, F/C WAS REMOVED PRIOR TRANSFER BY SUPERVISOR PLASMA ISRA, PT IS DUE TO VOID, URINALS PROVIDED. ORIENTED PT TO ROOM AND PLAN OF CARE, CALL LIGHT WITHIN REACH AND ENCOURAGED PT TO CALL FOR ASSISTANCE. WILL ENDORSE TO NEXT SHIFT RN.
--- NOTE | 2018-03-20 20:38 | NUR ---
Bed alarm went off and went to patient's room. Patient was found trying to turn off the alarm. Patient was educated regarding safety prevention and his risk for falls, patient refused to have bed alarm. "Walk with us" form was provided to the patient, yellow arm band was also placed.
--- NOTE | 2018-03-20 21:00 | NUR ---
PATIENT REFUSED BED ALARM. PATIENT REFUSED HEPARIN SQ AND SCD'S ALSO. EXPLAINED TO PATIENT RISKS, BENEFITS, AND ALTERNATIVES. PATIENT ALSO REFUSED TO HAVE PHOTOS TAKEN OF HIS BILATERAL HEELS AND SACROCOCCYX AREA.
--- NOTE | 2018-03-20 23:51 | NUR ---
PATIENT C/O DYSURIA AND L TESTICLE SHARP PAIN 10/16. C/O DRIBBLING TOO AND HOW HE HAS NOT BEEN GIVEN ANTIBIOTICS AGAIN. EXPLAINED TO PATIENT THAT URINE CULTURE RESULT IS STILL PENDING. PATIENT ALSO REQUESTED FOR HIS GABAPENTIN 300MG PO EVERY HS, HE TAKES THIS AT HOME. DR. ANDRADE WAS NOTIFIED. ALSO REQUESTED FOR PO PAIN MEDS.
[2018-03-21] MEDS ORDERED: traMADol 50 MG TAB PO PRN
[2018-03-21] MEDS: morphine SULFATE/PF (2 MG/2 ML) SYG IV PRN ×2 (00:24→20:48)
[2018-03-21] MEDS: GABAPENTIN 300 MG CAP PO SCH ×2 (00:25→20:49)
[2018-03-21] MEDS: CEFTRIAXONE 1 GM/50 ML (PMX) 50 ML IVPB SCH ×2 (00:25→23:30)
[2018-03-21 01:38] VITALS: BP 136/62; PULSE 78; RESP 18
--- NOTE | 2018-03-21 02:48 | NUR ---
STILL C/O DYSURIA, AND NOW DISTENTION. BLADDER SCAN 249ML. DR. ANDRADE MADE AWARE, I/O CATHETERIZATION ORDERED. Addendum: 03/21/18 at 0252 by [address]O [address]ANCE RN [address] ANDRADE ALSO ORDERED FLOMAX 0.4MG PO TO START NOW.
[2018-03-21] MEDS ORDERED: TAMSULOSIN (SR) 0.4 MG CAP PO ONE (03:00)
--- NOTE | 2018-03-21 03:02 | NUR ---
EXPLAINED TO PATIENT RISKS, BENEFITS, AND ALTERNATIVES TO CATHETERIZATION, PATIENT REQUESTED TO HOLD OFF ON THE STRAIGHT CATHETERIZATION. EXPLAINED USE AND S/E OF FLOPMAX TO PATIENT, PATIENT VERBALIZED UNDERSTANDING.
--- NOTE | 2018-03-21 05:12 | NUR ---
PATIENT REFUSED I/O CATHETER, VERBALIZED THAT HE WILL LET RN KNOW WHEN HE FEELS DISTENDED AGAIN.
[2018-03-21] MEDS: HEPARIN 5,000 UNIT/1 ML VIAL SC SCH ×3 (05:13→22:00)
[2018-03-21] MEDS: PANTOPRAZOLE 40 MG INJ IV SCH (05:13)
[2018-03-21] MEDS ORDERED: INSULIN REGULAR, HUMAN 100 UNIT/1 ML 3ML VIAL IVP STA (07:16)
[2018-03-21] MEDS ORDERED: ALBUTEROL/IPRATROPIUM (NEB) 3 ML AMP HHN STA (07:16)
--- NOTE | 2018-03-21 07:20 | NUR ---
POTASSIUM LEVEL 7.1 Received a call from the laboratory regarding patient's potassium level. Spoke with Dr. Conteh and obtained orders. Relayed orders and lab result to primary RN, Sury. Verbalized understanding.
[2018-03-21 07:30] VITALS: BP 126/67; PULSE 80; RESP 18
[2018-03-21] MEDS ORDERED: DEXTROSE 50% 50 ML SYRINGE IV PRN (07:30)
[2018-03-21] MEDS: INSULIN ASPART [NOVOLOG] 3 ML PEN SC SCH ×7 (08:16→20:59)
[2018-03-21] MEDS ORDERED: CALCIUM GLUCONATE 10% 1 GM in DEXTROSE 5% 100 ML IVPB ONE (08:30)
[2018-03-21] MEDS: ASPIRIN (EC) 81 MG TAB PO SCH (08:41)
[2018-03-21] MEDS ORDERED: INSULIN GLARGINE [LANTus] (100 UNITS/ML) SYG SC SCH (09:00)
[2018-03-21] MEDS ORDERED: TAMSULOSIN (SR) 0.4 MG CAP PO SCH (09:00)
--- NOTE | 2018-03-21 10:51 | CONS ---
Date/Time of Note Date/Time of Note DATE: 03/21/18 TIME: 10:29 Assessment/Plan Assessment/Plan Assessment/Plan 1. acute hyperkalemia due to RATNA- k 7.9 - Ca Gluconate per PMD - will repeat K 2. Hyponatremia due to hypovolemic Hyponatremia from DKA- Improved 3. acute Kidney injury on CKD III due to ATN + prerenal azotemia 4 Acute diabetic ketoacidosis due to UTI + ? compliance 5. 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 H/o HTN 8. H/o HL Plan : Got transferred from ICU UO - 2.5 L / 24 Hr IV abx for UTI, Renally dose all abx and monitor electrolyte s BUN/Cr trended down 36/1.40 today Expecting Improvement in Cr with Treatment of DKA Renal US - Echogenic kidneys, consistent with medical renal disease; Mild bilateral hydronephrosis, left greater than right; Markedly distended urinary bladder with layering echogenic debris within it. urine studies has been ordered - random urine Cr- 28.47 - urine total protein 39.0 - urine eosinophils - 0 - urine random sodium- 36 will follow up Patient seen in collaboration with Dr Nivia Matta Result Diagram: 03/21/18 0437 03/21/18 0802 Results 24hrs Laboratory Tests Test 03/20/18 10:45 03/20/18 10:47 03/20/18 12:15 03/20/18 13:54 Urine Eosinophils % 0.0 Urine Random 33.49 Creatinine Urine Random Sodium 36 Urine 0.74 Protein/Creatinine Ratio Urine Total Protein 25.0 H Bedside Glucose 245 H 237 H 221 H Test 03/20/18 15:18 03/20/18 16:06 03/20/18 16:13 03/20/18 17:57 Bedside Glucose 276 H 312 H 240 H Urine Random 28.47 Creatinine Urine 1.36 Protein/Creatinine Ratio Urine Total Protein 39.0 H Test 03/20/18 20:55 03/21/18 04:37 03/21/18 08:02 03/21/18 08:13 Bedside Glucose 149 250 H White Blood Count 19.4 #H Red Blood Count 4.74 Hemoglobin 12.0 L Hematocrit 37.8 L Mean Corpuscular 79.7 L Volume Mean Corpuscular 25.3 L Hemoglobin Mean Corpuscular 31.7 L Hemoglobin Concent Red Cell 13.4 Distribution Width Platelet Count 495 #H Mean Platelet Volume 9.2 Immature 0.700 H Granulocytes % Neutrophils % 82.3 H Lymphocytes % 10.7 L Monocytes % 4.8 Eosinophils % 1.1 Basophils % 0.4 Nucleated Red Blood 0.0 Cells % Immature 0.140 H Granulocytes # Neutrophils # 15.9 H Lymphocytes # 2.1 Monocytes # 0.9 Eosinophils # 0.2 Basophils # 0.1 Nucleated Red Blood 0.0 Cells # Sodium Level 139 137 Potassium Level 7.1 #*H 7.9 *H Chloride Level 109 109 Carbon Dioxide Level 16 L 17 L Anion Gap 14 #H 11 Blood Urea Nitrogen 37 #H 36 H Creatinine 1.37 H 1.40 H Est Glomerular 52 L 51 L Filtrat Rate mL/min Glucose Level 228 H 255 H Uric Acid 8.6 H Calcium Level 9.4 9.5 Phosphorus Level 2.8 Magnesium Level 2.5 Test 03/21/18 08:35 Bedside Glucose 237 H Consultation Date/Type/Reason Admit Date/Time Mar 19, 2018 at 20:19 Initial Consult Date Type of Consult NEPHROLOGY Requesting Provider: JONAH ANDRADE 24 HR Interval Summary Free Text/Dictation K 7.9 - repeat lab ekg done denies any chest pain feels ok cont to monitor Constitutional: requiring IVF Detailed Summary Eyes: no complaints ENT: no complaints Respiratory: no complaints Cardiovascular: no complaints Gastrointestinal: no complaints Genitourinary: no complaints Musculoskeletal: no complaints Exam/Review of Systems Vital Signs Vitals Vital Signs Date Temp Pulse Resp B/P (MAP) Pulse Ox O2 O2 Flow FiO2 Time Delivery Rate 03/21/18 97.7 80 18 126/67 97 Room Air 07:30 (86) 03/20/18 21 02:08 Intake and Output 03/20/18 03/20/18 03/21/18 1515:00 23:00 07:00 IntakeIntake Total 2509.64 ml 308.08 ml 50 ml OutputOutput Total 1200 ml 775 ml 400 ml BalanceBalance 1309.64 ml -466.92 ml -350 ml Exam Constitutional: alert, well developed Psych: nl mood/affect Head: atraumatic Eyes: EOMI ENMT: nl external ears & nose Neck: non-tender Respiratory: diminished breath sounds Cardiovascular: nl pulses, other (S1S2) Gastrointestinal: soft, non-tender Musculoskeletal: muscle weakness Extremities: normal pulses Neurological: other (alert) Lymph: nontender Medications Medications Current Medications Ondansetron HCl (Zofran Inj) 4 mg Q6H PRN IV NAUSEA AND/OR VOMITING; Start 03/19/18 at 20:30 Metoclopramide HCl (Reglan) 10 mg Q6H PRN IV NAUSEA AND/OR VOMITING; Start 03/19/18 at 20:30 Albuterol (Proventil 0.083% (Neb)) 2.5 mg Q2H RESP THERAPY PRN NEB SHORTNESS OF BREATH; Start 03/19/18 at 20:30 Ipratropium [place] (Atrovent 0.02% (Neb)) 0.5 mg Q2H RESP THERAPY PRN NEB SHORTNESS OF BREATH; Start 03/19/18 at 20:30 Acetaminophen (Tylenol Liquid) 650 mg Q6H PRN PO PAIN LEVEL 1-3 OR FEVER Last administered on 03/19/18at 22:42; Admin Dose 650 MG; Start 03/19/18 at 20:30 Docusate Sodium (Colace) 100 mg Q12H PRN PO CONSTIPATION; Start 03/19/18 at 20:30 Bisacodyl (Dulcolax) 5 mg DAILY PRN PO CONSTIPATION; Start 03/19/18 at 20:30 Pantoprazole (Protonix Iv) 40 mg DAILY@06 IV Last administered on 03/21/18at 05:13; Admin Dose 40 MG; Start 03/20/18 at 06:00 Heparin Sodium (Porcine) (Heparin (5000 Units/1ml)) 5,000 unit Q8 SC Last administered on 03/19/18at 22:33; Admin Dose 5,000 UNIT; Start 03/19/18 at 22:00 Aspirin (Halfprin) 81 mg DAILY PO Last administered on 03/21/18 08:41; Admin Dose 81 MG; Start 03/20/18 at 09:00 Carvedilol (Coreg) 6.25 mg BID PO Last administered on 03/21/18 08:41; Admin Dose 6.25 MG; Start 03/20/18 at 09:00 Insulin Aspart (Novolog Insulin Pen) NOVOLOG *MODERATE* ALGORITHM WITH MEALS BEDTIME SC Last administered on 1/13/19at 08:16; Admin Dose 6 UNIT; Start 03/20/18 at 11:30 Miscellaneous Information 1 ea NOTE XX ; Start 03/20/18 at 10:30 Glucose (Glutose) 15 gm Q15M PRN PO DECREASED GLUCOSE; Start 03/20/18 at 10:30 Glucose (Glutose) 22.5 gm Q15M PRN PO DECREASED GLUCOSE; Start 03/20/18 at 10:30 Dextrose (D50w Syringe) 25 ml Q15M PRN IV DECREASED GLUCOSE; Start 03/20/18 at 10:30 Dextrose (D50w Syringe) 50 ml Q15M PRN IV DECREASED GLUCOSE; Start 03/20/18 at 10:30 Glucagon (Glucagen) 1 mg Q15M PRN IM DECREASED GLUCOSE; Start 03/20/18 at 10:30 Glucose (Glutose) 15 gm Q15M PRN BUCCAL DECREASED GLUCOSE; Start 03/20/18 at 10:30 Insulin Aspart (Novolog Insulin Pen) 15 unit WITH MEALS SC Last administered on 03/21/18at 08:17; Admin Dose 15 UNIT; Start 03/20/18 at 17:35 Ceftriaxone Sodium 50 ml @ 100 mls/hr Q24H IVPB Last administered on 03/21/18at 00:25; Admin Dose 100 MLS/HR; Start 03/21/18 at 00:00 Gabapentin (Neurontin) 300 mg QHS PO Last administered on 03/21/18at 00:25; Admin Dose 300 MG; Start 03/21/18 at 00:00 Tramadol HCl (Ultram) 50 mg Q6H PRN PO PAIN Last administered on 03/21/18at 00:24; Admin Dose 50 MG; Start 03/21/18 at 00:00 Morphine Sulfate (morphine SULFATE (PF)) 1 mg Q4H PRN IV PAIN LEVEL 7-10 Last administered on 03/21/18at 00:24; Admin Dose 1 MG; Start 03/21/18 at 00:30 Tamsulosin HCl (Flomax) 0.4 mg DAILY@2100 PO ; Start 03/21/18 at 21:00 Dextrose (D50w Syringe) ONCE PRN IV DECREASED GLUCOSE; Start 03/21/18 at 07:30; Stop 03/23/18 at 07:29 Insulin Glargine (Lantus) 25 units DAILY@0800 SC Last administered on 03/21/18at 09:56; Admin Dose 25 UNITS; Start 03/21/18 at 09:00 MK RANDALL Mar 21, 2018 10:45
[2018-03-21] MEDS: metFORMIN 850 MG TAB PO SCH ×2 (13:00→17:30)
[2018-03-21] MEDS ORDERED: INSULIN GLARGINE [LANTus] (100 UNITS/ML) SYG SC STA (13:39)
--- NOTE | 2018-03-21 13:44 | RADRPT ---
Vent Rate: 80 bpm RR Interval: 0 msec IN Interval: 154 msec QRS Duration: 86 msec QT Interval: 348 msec QTC Interval: 401 msec P-R-T [place]: 71 - 10 - 62 degrees Normal sinus rhythm Normal ECG No previous tracing available for comparison Electronically Signed By: Anuj Bautista [id number]
--- NOTE | 2018-03-21 13:52 | NUR ---
NUTRITION NOTE: Pt admitted with DKA. Hx of DM2, CKD st 3, HTN. Currently on a carb controlled diet. Tolerating PO with n/v/d. BG's remains high, today's POC BG 250. Per tray observation at lunch, pt hardly ate carbs, only ate the chicken. RN was in room, asked about carb allowances and discussed about reducing carbs at meals. On current diet, pt is allowed 4-3-3 carbs at BLD. Suggest trial of 3.5-3-3 carb allowance. Noted pt is now on lantus 50 units. Will continue to monitor BG's. Noted pt had elevated K+ 7.1 and 7.9 this morning, pending lab redraw results. Recommend to change diet to 1600 calorie carb controlled renal diet.
--- NOTE | 2018-03-21 14:23 | CONS ---
Date/Time of Note Date/Time of Note DATE: 03/21/18 TIME: 14:12 Assessment/Plan Assessment/Plan Hospital Course Type 2 DM -increase lantus to 50 units daily, given that patient received 25 units this morning, will give an extra dose of 25 units now with the 50 units to start tomorrow morning -agree with novolog 25 units TIDAC -ok with metformin 850mg po BID -continue novolog moderate dose correction scale AC and HS -check FS AC and HS Result Diagram: 03/21/18 0437 03/21/18 1209 Results 24hrs Laboratory Tests Test 03/20/18 15:18 03/20/18 16:06 03/20/18 16:13 03/20/18 17:57 Bedside Glucose 276 H 312 H 240 H Urine Random 28.47 Creatinine Urine 1.36 Protein/Creatinine Ratio Urine Total Protein 39.0 H Test 03/20/18 20:55 03/21/18 04:37 03/21/18 08:02 03/21/18 08:13 Bedside Glucose 149 250 H White Blood Count 19.4 #H Red Blood Count 4.74 Hemoglobin 12.0 L Hematocrit 37.8 L Mean Corpuscular 79.7 L Volume Mean Corpuscular 25.3 L Hemoglobin Mean Corpuscular 31.7 L Hemoglobin Concent Red Cell 13.4 Distribution Width Platelet Count 495 #H Mean Platelet Volume 9.2 Immature 0.700 H Granulocytes % Neutrophils % 82.3 H Lymphocytes % 10.7 L Monocytes % 4.8 Eosinophils % 1.1 Basophils % 0.4 Nucleated Red Blood 0.0 Cells % Immature 0.140 H Granulocytes # Neutrophils # 15.9 H Lymphocytes # 2.1 Monocytes # 0.9 Eosinophils # 0.2 Basophils # 0.1 Nucleated Red Blood 0.0 Cells # Sodium Level 139 137 Potassium Level 7.1 #*H 7.9 *H Chloride Level 109 109 Carbon Dioxide Level 16 L 17 L Anion Gap 14 #H 11 Blood Urea Nitrogen 37 #H 36 H Creatinine 1.37 H 1.40 H Est Glomerular 52 L 51 L Filtrat Rate mL/min Glucose Level 228 H 255 H Uric Acid 8.6 H Calcium Level 9.4 9.5 Phosphorus Level 2.8 Magnesium Level 2.5 Test 03/21/18 08:35 03/21/18 11:48 1/13/19 12:09 Bedside Glucose 237 H 301 H Sodium Level 132 L Potassium Level 7.1 *H Chloride Level 108 Carbon Dioxide Level 15 L Anion Gap 9 Blood Urea Nitrogen 36 H Creatinine 1.40 H Est Glomerular 51 L Filtrat Rate mL/min Glucose Level 322 H Calcium Level 9.7 Consultation Date/Type/Reason Admit Date/Time Mar 19, 2018 at 20:19 Date of Consultation: Mar 21, 2018 Type of Consult Endocrinology Reason for Consultation Uncontrolled diabetes mellitus Requesting Provider: JONAH ANDRADE of Present Illness 63-year-old male with T2DM diabetes mellitus diagnosed back in 2006 that is complicated by chronic kidney disease, hypertension and degenerative disc disease who was admitted for dysuria and hyperglycemia. He takes lantus 40-60 units usually in the evening, novolog 25-35 units with meals, but if he is having a "small" meal eg hamburger, cup noodles he will not inject novolog. FS at home has been ranging from 300 to HIGH, he denied hypoglycemia. Constitutional: No fever, No chills, No sweats. Eye: No discharge. No icterus ENMT: No decreased hearing, no ear pain Genitourinary: dysuria. Respiratory: No shortness of breath, cough or sputum production Cardiovascular: No chest pain, No palpitations. Gastrointestinal: No nausea, vomiting or diarrhea Integumentary: No rash, No pruritus Neurologic: Alert and oriented, No confusion. Psychiatric: Not delusional. No anxiety Past Medical History Medical History: diabetes, hypertension Medications Current Medications Ondansetron HCl (Zofran Inj) 4 mg Q6H PRN IV NAUSEA AND/OR VOMITING; Start 03/19/18 at 20:30 Metoclopramide HCl (Reglan) 10 mg Q6H PRN IV NAUSEA AND/OR VOMITING; Start 03/19/18 at 20:30 Albuterol (Proventil 0.083% (Neb)) 2.5 mg Q2H RESP THERAPY PRN NEB SHORTNESS OF BREATH; Start 03/19/18 at 20:30 Ipratropium [place] (Atrovent 0.02% (Neb)) 0.5 mg Q2H RESP THERAPY PRN NEB SHORTNESS OF BREATH; Start 03/19/18 at 20:30 Acetaminophen (Tylenol Liquid) 650 mg Q6H PRN PO PAIN LEVEL 1-3 OR FEVER Last administered on 03/19/18at 22:42; Admin Dose 650 MG; Start 03/19/18 at 20:30 Docusate Sodium (Colace) 100 mg Q12H PRN PO CONSTIPATION; Start 03/19/18 at 20:30 Bisacodyl (Dulcolax) 5 mg DAILY PRN PO CONSTIPATION; Start 03/19/18 at 20:30 Pantoprazole (Protonix Iv) 40 mg DAILY@06 IV Last administered on 03/21/18at 05:13; Admin Dose 40 MG; Start 03/20/18 at 06:00 Heparin Sodium (Porcine) (Heparin (5000 Units/1ml)) 5,000 unit Q8 SC Last administered on 03/19/18at 22:33; Admin Dose 5,000 UNIT; Start 03/19/18 at 22:00 Aspirin (Halfprin) 81 mg DAILY PO Last administered on 03/21/18at 08:41; Admin Dose 81 MG; Start 03/20/18 at 09:00 Carvedilol (Coreg) 6.25 mg BID PO Last administered on 03/21/18at 08:41; Admin Dose 6.25 MG; Start 03/20/18 at 09:00 Insulin Aspart (Novolog Insulin Pen) NOVOLOG *MODERATE* ALGORITHM WITH MEALS BEDTIME SC Last administered on 03/21/18at 13:24; Admin Dose 10 UNIT; Start 03/20/18 at 11:30 Miscellaneous Information 1 ea NOTE XX ; Start 03/20/18 at 10:30 Glucose (Glutose) 15 gm Q15M PRN PO DECREASED GLUCOSE; Start 03/20/18 at 10:30 Glucose (Glutose) 22.5 gm Q15M PRN PO DECREASED GLUCOSE; Start 03/20/18 at 10:30 Dextrose (D50w Syringe) 25 ml Q15M PRN IV DECREASED GLUCOSE; Start 03/20/18 at 10:30 Dextrose (D50w Syringe) 50 ml Q15M PRN IV DECREASED GLUCOSE; Start 03/20/18 at 10:30 Glucagon (Glucagen) 1 mg Q15M PRN IM DECREASED GLUCOSE; Start 03/20/18 at 10:30 Glucose (Glutose) 15 gm Q15M PRN BUCCAL DECREASED GLUCOSE; Start 03/20/18 at 10:30 Ceftriaxone Sodium 50 ml @ 100 mls/hr Q24H IVPB Last administered on 03/21/18at 00:25; Admin Dose 100 MLS/HR; Start 03/21/18 at 00:00 Gabapentin (Neurontin) 300 mg QHS PO Last administered on 03/21/18at 00:25; Admin Dose 300 MG; Start 03/21/18 at 00:00 Tramadol HCl (Ultram) 50 mg Q6H PRN PO PAIN Last administered on 03/21/18at 00:24; Admin Dose 50 MG; Start 03/21/18 at 00:00 Morphine Sulfate (morphine SULFATE (PF)) 1 mg Q4H PRN IV PAIN LEVEL 7-10 Last administered on 03/21/18at 00:24; Admin Dose 1 MG; Start 03/21/18 at 00:30 Tamsulosin HCl (Flomax) 0.4 mg DAILY@2100 PO ; Start 03/21/18 at 21:00 Dextrose (D50w Syringe) ONCE PRN IV DECREASED GLUCOSE; Start 03/21/18 at 07:30; Stop 03/23/18 at 07:29 Insulin Aspart (Novolog Insulin Pen) 25 unit WITH MEALS SC Last administered on 03/21/18at 13:25; Admin Dose 25 UNIT; Start 03/21/18 at 12:00 Metformin HCl (Glucophage) 850 mg BID WITH MEALS PO ; Start 03/21/18 at 13:00 Insulin Glargine (Lantus) 50 units DAILY@0800 SC ; Start 03/22/18 at 09:00 Allergies: Coded Allergies: codeine (Unverified Allergy, Unknown, 03/19/18) Uncoded Allergies: ANTIBIOTICS UNKNOWN (Allergy, Unknown, 03/19/18) PATIENT SAYS HIS ALLERGIC TO SOME OF THE ANTIBIOTICS Past Surgical History Past Surgical Hx: other (back surgery) Family History Significant Family History: other (Patient was adopted ) Social History Alcohol Use: none Smoking Status: Never smoker Drug Use: none Exam/Review of Systems Vital Signs Vitals Vital Signs Date Temp Pulse Resp B/P (MAP) Pulse Ox O2 O2 Flow FiO2 Time Delivery Rate 03/21/18 97.7 80 18 126/67 97 Room Air 07:30 (86) 03/20/18 21 02:08 Intake and Output 03/20/18 03/20/18 03/21/18 1515:00 23:00 07:00 IntakeIntake Total 2509.64 ml 308.08 ml 50 ml OutputOutput Total 1200 ml 775 ml 400 ml BalanceBalance 1309.64 ml -466.92 ml -350 ml Exam General: Comfortable in appearance, not in acute distress. Skin appropriate for ethnicity Eye: Extraocular movements are intact, Normal conjunctiva. HENT: Normocephalic, atraumatic. Respiratory: Respirations are non-labored, Breath sounds are equal, Symmetrical chest wall expansion. Cardiovascular: S1, S2. No murmur. No LE edema Gastrointestinal: Soft, Non-tender, Non-distended, Normal bowel sounds. Integumentary: Warm to touch. Neurologic: Alert, Oriented. Cognition and Speech: Speech clear and coherent, Functional cognition intact. Psychiatric: Cooperative, Appropriate mood & affect. Medications Medications Current Medications Ondansetron HCl (Zofran Inj) 4 mg Q6H PRN IV NAUSEA AND/OR VOMITING; Start 03/19/18 at 20:30 Metoclopramide HCl (Reglan) 10 mg Q6H PRN IV NAUSEA AND/OR VOMITING; Start 03/19/18 at 20:30 Albuterol (Proventil 0.083% (Neb)) 2.5 mg Q2H RESP THERAPY PRN NEB SHORTNESS OF BREATH; Start 03/19/18 at 20:30 Ipratropium [place] (Atrovent 0.02% (Neb)) 0.5 mg Q2H RESP THERAPY PRN NEB SHORTNESS OF BREATH; Start 03/19/18 at 20:30 Acetaminophen (Tylenol Liquid) 650 mg Q6H PRN PO PAIN LEVEL 1-3 OR FEVER Last administered on 03/19/18at 22:42; Admin Dose 650 MG; Start 03/19/18 at 20:30 Docusate Sodium (Colace) 100 mg Q12H PRN PO CONSTIPATION; Start 03/19/18 at 20:30 Bisacodyl (Dulcolax) 5 mg DAILY PRN PO CONSTIPATION; Start 03/19/18 at 20:30 Pantoprazole (Protonix Iv) 40 mg DAILY@06 IV Last administered on 03/21/18at 05:13; Admin Dose 40 MG; Start 03/20/18 at 06:00 Heparin Sodium (Porcine) (Heparin (5000 Units/1ml)) 5,000 unit Q8 SC Last administered on 03/19/18at 22:33; Admin Dose 5,000 UNIT; Start 03/19/18 at 22:00 Aspirin (Halfprin) 81 mg DAILY PO Last administered on 03/21/18at 08:41; Admin Dose 81 MG; Start 03/20/18 at 09:00 Carvedilol (Coreg) 6.25 mg BID PO Last administered on 03/21/18at 08:41; Admin Dose 6.25 MG; Start 03/20/18 at 09:00 Insulin Aspart (Novolog Insulin Pen) NOVOLOG *MODERATE* ALGORITHM WITH MEALS BEDTIME SC Last administered on 03/21/18at 13:24; Admin Dose 10 UNIT; Start 03/20/18 at 11:30 Miscellaneous Information 1 ea NOTE XX ; Start 03/20/18 at 10:30 Glucose (Glutose) 15 gm Q15M PRN PO DECREASED GLUCOSE; Start 03/20/18 at 10:30 Glucose (Glutose) 22.5 gm Q15M PRN PO DECREASED GLUCOSE; Start 03/20/18 at 10:30 Dextrose (D50w Syringe) 25 ml Q15M PRN IV DECREASED GLUCOSE; Start 03/20/18 at 10:30 Dextrose (D50w Syringe) 50 ml Q15M PRN IV DECREASED GLUCOSE; Start 03/20/18 at 10:30 Glucagon (Glucagen) 1 mg Q15M PRN IM DECREASED GLUCOSE; Start 03/20/18 at 10:30 Glucose (Glutose) 15 gm Q15M PRN BUCCAL DECREASED GLUCOSE; Start 03/20/18 at 10:30 Ceftriaxone Sodium 50 ml @ 100 mls/hr Q24H IVPB Last administered on 03/21/18at 00:25; Admin Dose 100 MLS/HR; Start 03/21/18 at 00:00 Gabapentin (Neurontin) 300 mg QHS PO Last administered on 03/21/18at 00:25; Admin Dose 300 MG; Start 03/21/18 at 00:00 Tramadol HCl (Ultram) 50 mg Q6H PRN PO PAIN Last administered on 03/21/18at 00:24; Admin Dose 50 MG; Start 03/21/18 at 00:00 Morphine Sulfate (morphine SULFATE (PF)) 1 mg Q4H PRN IV PAIN LEVEL 7-10 Last administered on 03/21/18at 00:24; Admin Dose 1 MG; Start 03/21/18 at 00:30 Tamsulosin HCl (Flomax) 0.4 mg DAILY@2100 PO ; Start 03/21/18 at 21:00 Dextrose (D50w Syringe) ONCE PRN IV DECREASED GLUCOSE; Start 03/21/18 at 07:30; Stop 03/23/18 at 07:29 Insulin Aspart (Novolog Insulin Pen) 25 unit WITH MEALS SC Last administered on 03/21/18at 13:25; Admin Dose 25 UNIT; Start 03/21/18 at 12:00 Metformin HCl (Glucophage) 850 mg BID WITH MEALS PO ; Start 03/21/18 at 13:00 Insulin Glargine (Lantus) 50 units DAILY@0800 SC ; Start 03/22/18 at 09:00 PETER LOREDO MD Mar 21, 2018 14:22
[2018-03-21 14:50] VITALS: BP 115/57; PULSE 75; RESP 18
--- NOTE | 2018-03-21 17:12 | PN ---
Date/Time of Note Date/Time of Note DATE: 03/21/18 TIME: 17:11 Assessment/Plan VTE Prophylaxis Risk score (from Nsg)>0 risk: 3 SCD applied (from Nsg): Yes Pharmacological prophylaxis: heparin Lines/Catheters IV Catheter Type (from Nrsg): Peripheral IV Urinary Cath still in place: Yes Reason Cath still needed: urinary retention Assessment/Plan Hospital Course 63 yo male with DM presnets with DKA now resolved. Hospital course complicated by hyperkalemia DM s/p DKA - Transition to basal/bolus with uptitration per endocrine RATNA on CKD; - fluids Hyperkalemia - Should improved with insulin and fluids - Will give kayexalate as well Discharge when stable on insulin dosages and hyperkalemia resolved Result Diagram: 03/21/18 0437 03/21/18 1616 Results 24hrs Laboratory Tests Test 03/20/18 17:57 03/20/18 20:55 03/21/18 04:37 03/21/18 08:02 Bedside Glucose 240 H 149 White Blood Count 19.4 #H Red Blood Count 4.74 Hemoglobin 12.0 L Hematocrit 37.8 L Mean Corpuscular 79.7 L Volume Mean Corpuscular 25.3 L Hemoglobin Mean Corpuscular 31.7 L Hemoglobin Concent Red Cell 13.4 Distribution Width Platelet Count 495 #H Mean Platelet Volume 9.2 Immature 0.700 H Granulocytes % Neutrophils % 82.3 H Lymphocytes % 10.7 L Monocytes % 4.8 Eosinophils % 1.1 Basophils % 0.4 Nucleated Red Blood 0.0 Cells % Immature 0.140 H Granulocytes # Neutrophils # 15.9 H Lymphocytes # 2.1 Monocytes # 0.9 Eosinophils # 0.2 Basophils # 0.1 Nucleated Red Blood 0.0 Cells # Sodium Level 139 137 Potassium Level 7.1 #*H 7.9 *H Chloride Level 109 109 Carbon Dioxide Level 16 L 17 L Anion Gap 14 #H 11 Blood Urea Nitrogen 37 #H 36 H Creatinine 1.37 H 1.40 H Est Glomerular 52 L 51 L Filtrat Rate mL/min Glucose Level 228 H 255 H Uric Acid 8.6 H Calcium Level 9.4 9.5 Phosphorus Level 2.8 Magnesium Level 2.5 Test 03/21/18 08:13 03/21/18 08:35 03/21/18 11:48 03/21/18 12:09 Bedside Glucose 250 H 237 H 301 H Sodium Level 132 L Potassium Level 7.1 *H Chloride Level 108 Carbon Dioxide Level 15 L Anion Gap 9 Blood Urea Nitrogen 36 H Creatinine 1.40 H Est Glomerular 51 L Filtrat Rate mL/min Glucose Level 322 H Calcium Level 9.7 Test 03/21/18 16:16 Sodium Level 135 Potassium Level 7.9 *H Chloride Level 106 Carbon Dioxide Level 17 L Anion Gap 12 Blood Urea Nitrogen 35 H Creatinine 1.51 H Est Glomerular 47 L Filtrat Rate mL/min Glucose Level 316 H Calcium Level 9.8 Subjective 24 Hr Interval Summary Free Text/Dictation remains hyperglycemic. We have increased his insulin dosage Also hyperkalemic, received ca gluconate etc this AM Asymptomatic Exam/Review of Systems Vital Signs Vitals Vital Signs Date Temp Pulse Resp B/P (MAP) Pulse Ox O2 O2 Flow FiO2 Time Delivery Rate 03/21/18 98.3 75 18 115/57 98 Room Air 14:50 (76) 03/20/18 21 02:08 Intake and Output 03/20/18 03/20/18 03/21/18 1515:00 23:00 07:00 IntakeIntake Total 2509.64 ml 308.08 ml 50 ml OutputOutput Total 1200 ml 775 ml 400 ml BalanceBalance 1309.64 ml -466.92 ml -350 ml Medications Medications Current Medications Ondansetron HCl (Zofran Inj) 4 mg Q6H PRN IV NAUSEA AND/OR VOMITING; Start 03/19/18 at 20:30 Metoclopramide HCl (Reglan) 10 mg Q6H PRN IV NAUSEA AND/OR VOMITING; Start 03/19/18 at 20:30 Albuterol (Proventil 0.083% (Neb)) 2.5 mg Q2H RESP THERAPY PRN NEB SHORTNESS OF BREATH; Start 03/19/18 at 20:30 Ipratropium [place] (Atrovent 0.02% (Neb)) 0.5 mg Q2H RESP THERAPY PRN NEB SHORTNESS OF BREATH; Start 03/19/18 at 20:30 Acetaminophen (Tylenol Liquid) 650 mg Q6H PRN PO PAIN LEVEL 1-3 OR FEVER Last administered on 03/19/18at 22:42; Admin Dose 650 MG; Start 03/19/18 at 20:30 Docusate Sodium (Colace) 100 mg Q12H PRN PO CONSTIPATION; Start 03/19/18 at 20:30 Bisacodyl (Dulcolax) 5 mg DAILY PRN PO CONSTIPATION; Start 03/19/18 at 20:30 Pantoprazole (Protonix Iv) 40 mg DAILY@06 IV Last administered on 03/21/18at 05:13; Admin Dose 40 MG; Start 03/20/18 at 06:00 Heparin Sodium (Porcine) (Heparin (5000 Units/1ml)) 5,000 unit Q8 SC Last administered on 03/19/18at 22:33; Admin Dose 5,000 UNIT; Start 03/19/18 at 22:00 Aspirin (Halfprin) 81 mg DAILY PO Last administered on 03/21/18at 08:41; Admin Dose 81 MG; Start 03/20/18 at 09:00 Carvedilol (Coreg) 6.25 mg BID PO Last administered on 03/21/18at 08:41; Admin Dose 6.25 MG; Start 03/20/18 at 09:00 Insulin Aspart (Novolog Insulin Pen) NOVOLOG *MODERATE* ALGORITHM WITH MEALS BEDTIME SC Last administered on 03/21/18at 13:24; Admin Dose 10 UNIT; Start 03/20/18 at 11:30 Miscellaneous Information 1 ea NOTE XX ; Start 03/20/18 at 10:30 Glucose (Glutose) 15 gm Q15M PRN PO DECREASED GLUCOSE; Start 03/20/18 at 10:30 Glucose (Glutose) 22.5 gm Q15M PRN PO DECREASED GLUCOSE; Start 03/20/18 at 10:30 Dextrose (D50w Syringe) 25 ml Q15M PRN IV DECREASED GLUCOSE; Start 03/20/18 at 10:30 Dextrose (D50w Syringe) 50 ml Q15M PRN IV DECREASED GLUCOSE; Start 03/20/18 at 10:30 Glucagon (Glucagen) 1 mg Q15M PRN IM DECREASED GLUCOSE; Start 03/20/18 at 10:30 Glucose (Glutose) 15 gm Q15M PRN BUCCAL DECREASED GLUCOSE; Start 03/20/18 at 10:30 Ceftriaxone Sodium 50 ml @ 100 mls/hr Q24H IVPB Last administered on 03/21/18at 00:25; Admin Dose 100 MLS/HR; Start 03/21/18 at 00:00 Gabapentin (Neurontin) 300 mg QHS PO Last administered on 03/21/18at 00:25; Admin Dose 300 MG; Start 03/21/18 at 00:00 Tramadol HCl (Ultram) 50 mg Q6H PRN PO PAIN Last administered on 03/21/18at 00:24; Admin Dose 50 MG; Start 03/21/18 at 00:00 Morphine Sulfate (morphine SULFATE (PF)) 1 mg Q4H PRN IV PAIN LEVEL 7-10 Last administered on 03/21/18at 00:24; Admin Dose 1 MG; Start 03/21/18 at 00:30 Tamsulosin HCl (Flomax) 0.4 mg DAILY@2100 PO ; Start 03/21/18 at 21:00 Dextrose (D50w Syringe) ONCE PRN IV DECREASED GLUCOSE; Start 03/21/18 at 07:30; Stop 03/23/18 at 07:29 Insulin Aspart (Novolog Insulin Pen) 25 unit WITH MEALS SC Last administered on 03/21/18at 13:25; Admin Dose 25 UNIT; Start 03/21/18 at 12:00 Metformin HCl (Glucophage) 850 mg BID WITH MEALS PO ; Start 03/21/18 at 13:00 Insulin Glargine (Lantus) 50 units DAILY@0800 SC ; Start 03/22/18 at 09:00 SONAM PERLA MD Mar 21, 2018 17:12
[2018-03-21] MEDS ORDERED: NA POLYST SULFON 15 GM/60 ML BTL PO ONE ×2 (17:30→22:00)
[2018-03-21] MEDS ORDERED: SOD CHLORIDE 0.9% 1,000 ML IV ONE (17:30)
--- NOTE | 2018-03-21 18:16 | NUR ---
End of shift report Potassium 7.[address] Franco with new order of insulin and BMP. Then another elevated potassium levels reported to Dr. Franco with new order of: NS IV bolus x once; kayexalate PO x once; BMP today at 1999. Later urinary retention reported to Dr. Franco and received order of one time straight catheter insertion for: difficulty urinating and urine residual 350ml upon bladder scan. Orders noted and carried out. Explained to pt about potassium level elevation, effect of potassium on the heart, and need for pharmacological intervention and laboratory monitoring. Pt verbalized understanding. Reina charge nurse made aware of the situation. Will continue to monitor.
[2018-03-21 19:32] VITALS: BP 133/63; PULSE 87; RESP 18
--- NOTE | 2018-03-21 19:49 | NUR ---
PT REINFORMED OF THE NEED FOR TRANSFER TO TELEMETRY;PT HESITANT AT FIRST,EVENTUALLY AGREED FOR IT AFTER EXPLAINING HIS CONDITION AT THIS TIME. WAITING FOR TELEMETRY TO BE AVAILABLE FOR REPORT. CONTINUED WITH NS BOLUS AND ENCOURAGED PT TO FINISH KAYEXALATE. REPEAT BLADDER SCAN SHOWED 100-130 ML,NO BLADDER DISTENTION NOTED. WILL MONITOR. PROVIDED ASSISTANCE,CALL LIGHT WITHIN REACH.
[2018-03-21] MEDS: TAMSULOSIN (SR) 0.4 MG CAP PO SCH (20:49)
--- NOTE | 2018-03-21 20:55 | NUR ---
ALL DUE MEDS GIVEN TO PT. REPORT GIVEN TO SAM KWAN RN. AWAITING FOR TRANSPORT.
[2018-03-21] MEDS ORDERED: ALBUTEROL 0.083% (NEB) 2.5 MG/3 ML AMP HHN STA ×2 (21:32→23:57)
--- NOTE | 2018-03-21 21:40 | NUR ---
RECEIVED LAB RESULT OF POTASSIUM 6.2 ;IMPROVED. MADE DR. ANDRADE AWARE WITH ORDERS MADE AND ENDORSED TO SAM KWAN RN. PT TRANSFERRED TO TELEMETRY FLOOR ORDERED. PT ASYMPTOMATIC.
[2018-03-21 21:56] VITALS: PULSE 81
[2018-03-21] MEDS ORDERED: INSULIN REGULAR, HUMAN 100 UNIT/1 ML 3ML VIAL IV ONE (22:00)
[2018-03-21] MEDS ORDERED: DEXTROSE 50% 50 ML SYRINGE IV ONE (22:00)
[2018-03-21 23:46] VITALS: BP 136/63; PULSE 88; RESP 17
[2018-03-22] VITALS (10 sets, daily range): BP systolic 106–137; BP diastolic 53–74; PULSE 61–101; RESP 18–19
[2018-03-22] MEDS ORDERED: NA POLYST SULFON 15 GM/60 ML BTL PO ONE
[2018-03-22] MEDS ORDERED: CALCIUM GLUCONATE 10% 1 GM in DEXTROSE 5% 100 ML IVPB ONE (01:00)
[2018-03-22] MEDS ORDERED: NA POLYST SULFON 15 GM/60 ML BTL PR ONE (03:30)
[2018-03-22] MEDS ORDERED: DEXTROSE 50% 50 ML SYRINGE IV ONE (03:30)
[2018-03-22] MEDS ORDERED: ALBUTEROL 0.083% (NEB) 2.5 MG/3 ML AMP HHN STA (03:31)
[2018-03-22] MEDS ORDERED: INSULIN REGULAR, HUMAN 100 UNIT/1 ML 3ML VIAL IV ONE (04:00)
[2018-03-22] MEDS: HEPARIN 5,000 UNIT/1 ML VIAL SC SCH ×2 (05:40→21:00)
[2018-03-22] MEDS: PANTOPRAZOLE 40 MG INJ IV SCH (06:08)
--- NOTE | 2018-03-22 06:46 | NUR ---
PT TRANSFERRED FROM [facility] WITH DIAGNOSIS OF DKA, WITH HYPERKALEMIA. PT A/OX4, AMBULATES. PT POTASSIUM IS 7.1. DR ANDRADE MADE AWARE. ORDERS WERE GIVEN, AND CARRIED. PT POTASSIUM IS STILL ELEVATED AT 7.1. MD MADE AWARE AGAIN, AND WILL DEFER TO DAY TEAM. DR Nivia DICKENS, PATIENT'S PRIMARY MD IS ALSO MADE AWARE OF PT CONDITION THROUGH TELEPHONE EXCHANGE. WILL ENDORSE TO DAY SHIFT FOR CONTINUITY OF CARE.
[2018-03-22] MEDS: ASPIRIN (EC) 81 MG TAB PO SCH (08:20)
[2018-03-22] MEDS: metFORMIN 850 MG TAB PO SCH (08:20)
[2018-03-22] MEDS: INSULIN ASPART [NOVOLOG] 3 ML PEN SC SCH ×7 (08:23→21:00)
[2018-03-22] MEDS: INSULIN GLARGINE [LANTus] (100 UNITS/ML) SYG SC SCH (08:24)
[2018-03-22] MEDS: morphine SULFATE/PF (2 MG/2 ML) SYG IV PRN ×2 (09:29→17:53)
--- NOTE | 2018-03-22 12:00 | NUR ---
RN NOTES: Pt c/o pain on suprapubic area and stated he has not been able to urinate since his hoyos cath was removed. Bladder scan done, retained >400cc. Dr. Chatterjee notified, orders received and carried out accordingly.
--- NOTE | 2018-03-22 12:45 | CONS ---
Date/Time of Note Date/Time of Note DATE: 03/22/18 TIME: 12:45 Assessment/Plan Assessment/Plan Assessment/Plan 1. acute hyperkalemia due to RATNA 2. Hyponatremia due to hypovolemic Hyponatremia from DKA- Resolved 3. acute Kidney injury on CKD III due to ATN + prerenal azotemia- Improving 4 Acute diabeitc ketoacidosis due to UTI + ? complaince- resolved 5. 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 H/o HTN 8. H/o HL Plan: Persistent hyperkalemia due to Urinary retention and Hyporeninemic state from DM pt had a residual of 450 cc, s/p Hoyos catheter placement, K improved to 5.[address] kay[address]alate, no constipation BUN/Cr Improved to 34/1.46, BP stable Expecting Cr to improve, Change diet to Renal Diabetic diet Endocrine following for DM management, will follow up Result Diagram: 03/22/18 0537 03/22/18 0537 Results 24hrs Laboratory Tests Test 03/21/18 16:16 03/21/18 17:27 03/21/18 20:22 03/21/18 20:56 Sodium Level 135 140 Potassium Level 7.9 *H 6.2 *H Chloride Level 106 109 Carbon Dioxide Level 17 L 16 L Anion Gap 12 15 H Blood Urea Nitrogen 35 H 35 H Creatinine 1.51 H 1.48 H Est Glomerular 47 L 48 L Filtrat Rate mL/min Glucose Level 316 H 134 # Calcium Level 9.8 9.6 Bedside Glucose 285 H 131 Test 03/21/18 23:03 03/22/18 02:05 03/22/18 05:37 03/22/18 08:00 Sodium Level 135 137 138 Potassium Level 6.8 *H 7.1 *H 5.2 H Chloride Level 108 108 107 Carbon Dioxide Level 19 L 17 L 19 L Anion Gap 8 12 12 Blood Urea Nitrogen 37 H 35 H 34 H Creatinine 1.49 H 1.52 H 1.46 H Est Glomerular 48 L 47 L 49 L Filtrat Rate mL/min Glucose Level 169 262 H 246 H Calcium Level 9.4 9.3 9.4 White Blood Count 16.6 H Red Blood Count 4.25 L Hemoglobin 11.0 L Hematocrit 33.6 L Mean Corpuscular 79.1 L Volume Mean Corpuscular 25.9 L Hemoglobin Mean Corpuscular 32.7 Hemoglobin Concent Red Cell 13.8 Distribution Width Platelet Count 473 H Mean Platelet Volume 9.2 Immature 0.700 H Granulocytes % Neutrophils % 72.3 Lymphocytes % 19.0 Monocytes % 5.9 Eosinophils % 1.7 Basophils % 0.4 Nucleated Red Blood 0.0 Cells % Immature 0.120 H Granulocytes # Neutrophils # 12.0 H Lymphocytes # 3.2 H Monocytes # 1.0 H Eosinophils # 0.3 Basophils # 0.1 Nucleated Red Blood 0.0 Cells # Bedside Glucose 213 Test 03/22/18 11:46 Bedside Glucose 81 Consultation Date/Type/Reason Admit Date/Time Mar 19, 2018 at 20:19 Initial Consult Date 03/19/2018 Type of Consult NEPHROLOGY Requesting Provider: JONAH ANDRADE 24 HR Interval Summary Free Text/Dictation BUN/Cr 34/1.6, K 5.2, BP stable, afebrile, Exam/Review of Systems Vital Signs Vitals Vital Signs Date Temp Pulse Resp B/P (MAP) Pulse Ox O2 O2 Flow FiO2 Time Delivery Rate 03/22/18 82 12:01 03/22/18 98.2 19 124/59 98 11:26 (80) 03/22/18 21 04:20 03/21/18 Room Air 14:50 Intake and Output 03/21/18 03/21/18 03/22/18 1515:00 23:00 07:00 IntakeIntake Total 720 ml 1590 ml 750 ml OutputOutput Total 3 ml BalanceBalance 720 ml 1590 ml 747 ml Exam Constitutional: alert, oriented Respiratory: clear to auscultation Cardiovascular: regular rate and rhythm Gastrointestinal: soft; No distended, + hoyos catheter Musculoskeletal: nl extremities to inspection Medications Medications Current Medications Ondansetron HCl (Zofran Inj) 4 mg Q6H PRN IV NAUSEA AND/OR VOMITING; Start 03/19/18 at 20:30 Metoclopramide HCl (Reglan) 10 mg Q6H PRN IV NAUSEA AND/OR VOMITING; Start 03/19/18 at 20:30 Albuterol (Proventil 0.083% (Neb)) 2.5 mg Q2H RESP THERAPY PRN NEB SHORTNESS OF BREATH; Start 03/19/18 at 20:30 Ipratropium [place] (Atrovent 0.02% (Neb)) 0.5 mg Q2H RESP THERAPY PRN NEB SHORTNESS OF BREATH; Start 03/19/18 at 20:30 Acetaminophen (Tylenol Liquid) 650 mg Q6H PRN PO PAIN LEVEL 1-3 OR FEVER Last administered on 03/19/18at 22:42; Admin Dose 650 MG; Start 03/19/18 at 20:30 Docusate Sodium (Colace) 100 mg Q12H PRN PO CONSTIPATION; Start 03/19/18 at 20:30 Bisacodyl (Dulcolax) 5 mg DAILY PRN PO CONSTIPATION; Start 03/19/18 at 20:30 Pantoprazole (Protonix Iv) 40 mg DAILY@06 IV Last administered on 03/22/18at 06:08; Admin Dose 40 MG; Start 03/20/18 at 06:00 Heparin Sodium (Porcine) (Heparin (5000 Units/1ml)) 5,000 unit Q8 SC Last administered on 03/19/18at 22:33; Admin Dose 5,000 UNIT; Start 03/19/18 at 22:00 Aspirin (Halfprin) 81 mg DAILY PO Last administered on 03/22/18at 08:20; Admin Dose 81 MG; Start 03/20/18 at 09:00 Carvedilol (Coreg) 6.25 mg BID PO Last administered on 03/22/18at 08:21; Admin Dose 6.25 MG; Start 03/20/18 at 09:00 Insulin Aspart (Novolog Insulin Pen) NOVOLOG *MODERATE* ALGORITHM WITH MEALS BEDTIME SC Last administered on 03/22/18at 08:23; Admin Dose 4 UNIT; Start 03/20/18 at 11:30 Miscellaneous Information 1 ea NOTE XX ; Start 03/20/18 at 10:30 Glucose (Glutose) 15 gm Q15M PRN PO DECREASED GLUCOSE; Start 03/20/18 at 10:30 Glucose (Glutose) 22.5 gm Q15M PRN PO DECREASED GLUCOSE; Start 03/20/18 at 10:30 Dextrose (D50w Syringe) 25 ml Q15M PRN IV DECREASED GLUCOSE; Start 03/20/18 at 10:30 Dextrose (D50w Syringe) 50 ml Q15M PRN IV DECREASED GLUCOSE; Start 03/20/18 at 10:30 Glucagon (Glucagen) 1 mg Q15M PRN IM DECREASED GLUCOSE; Start 03/20/18 at 10:30 Glucose (Glutose) 15 gm Q15M PRN BUCCAL DECREASED GLUCOSE; Start 03/20/18 at 10:30 Ceftriaxone Sodium 50 ml @ 100 mls/hr Q24H IVPB Last administered on 03/21/18at 23:30; Admin Dose 100 MLS/HR; Start 03/21/18 at 00:00 Gabapentin (Neurontin) 300 mg QHS PO Last administered on 03/21/18at 20:49; Admin Dose 300 MG; Start 03/21/18 at 00:00 Tramadol HCl (Ultram) 50 mg Q6H PRN PO PAIN Last administered on 03/21/18 00:24; Admin Dose 50 MG; Start 03/21/18 at 00:00 Morphine Sulfate (morphine SULFATE (PF)) 1 mg Q4H PRN IV PAIN LEVEL 7-10 Last administered on 03/22/18 09:29; Admin Dose 1 MG; Start 03/21/18 at 00:30 Tamsulosin HCl (Flomax) 0.4 mg DAILY@2100 PO Last administered on 03/21/18 20:49; Admin Dose 0.4 MG; Start 03/21/18 at 21:00 Dextrose (D50w Syringe) ONCE PRN IV DECREASED GLUCOSE; Start 03/21/18 at 07:30; Stop 03/23/18 at 07:29 Metformin HCl (Glucophage) 850 mg BID WITH MEALS PO Last administered on 03/22/18 08:20; Admin Dose 850 MG; Start 03/21/18 at 13:00 Insulin Glargine (Lantus) 50 units DAILY@0800 SC Last administered on 03/22/18at 08:24; Admin Dose 50 UNITS; Start 03/22/18 at 09:00 Miscellaneous Information (* Miscellaneous Pharmacy Order) D50 1/2 AMP + 10 UNITS... ONCE XX ; Start 03/21/18 at 22:00 Insulin Aspart (Novolog Insulin Pen) 15 unit WITH MEALS SC ; Start 03/22/18 at 17:55 TALITA DICKENS MD Mar 22, 2018 12:45
--- NOTE | 2018-03-22 16:40 | PN ---
Date/Time of Note Date/Time of Note DATE: 03/22/18 TIME: 16:34 Assessment/Plan VTE Prophylaxis Risk score (from Nsg)>0 risk: 2 Pharmacological prophylaxis: heparin Lines/Catheters IV Catheter Type (from Nrsg): [place] Assessment/Plan Hospital Course 63 yo male with DM presents with DKA now resolved. Hospital course complicated by hyperkalemia 1. DM s/p DKA Continue subcu insulin regimen 2. RATNA on CKD secondary to ATN from UTI and obstructive uropathy from neurogenic bladder Patient with evidence of neurogenic bladder, indwelling Ryan catheter placed Continue antibiotics for UTI, etiology of UTI likely secondary to urinary stasis from neurogenic bladder Nephrology following 3. Hyperkalemia-improved Status post insulin and fluids as well as Kayexalate 4. UTI secondary to urinary stasis from neurogenic bladder Continue Rocephin Urinary culture noted Prophylaxis: Heparin DC planning: Anticipate DC to home the next 1-2 days once hyperkalemia has remained resolved Result Diagram: 03/22/18 0537 03/22/18 0537 Results 24hrs Laboratory Tests Test 03/21/18 17:27 03/21/18 20:22 03/21/18 20:56 03/21/18 23:03 Bedside Glucose 285 H 131 Sodium Level 140 135 Potassium Level 6.2 *H 6.8 *H Chloride Level 109 108 Carbon Dioxide Level 16 L 19 L Anion Gap 15 H 8 Blood Urea Nitrogen 35 H 37 H Creatinine 1.48 H 1.49 H Est Glomerular 48 L 48 L Filtrat Rate mL/min Glucose Level 134 # 169 Calcium Level 9.6 9.4 Test 03/22/18 02:05 03/22/18 05:37 03/22/18 08:00 03/22/18 11:46 Sodium Level 137 138 Potassium Level 7.1 *H 5.2 H Chloride Level 108 107 Carbon Dioxide Level 17 L 19 L Anion Gap 12 12 Blood Urea Nitrogen 35 H 34 H Creatinine 1.52 H 1.46 H Est Glomerular 47 L 49 L Filtrat Rate mL/min Glucose Level 262 H 246 H Calcium Level 9.3 9.4 White Blood Count 16.6 H Red Blood Count 4.25 L Hemoglobin 11.0 L Hematocrit 33.6 L Mean Corpuscular 79.1 L Volume Mean Corpuscular 25.9 L Hemoglobin Mean Corpuscular 32.7 Hemoglobin Concent Red Cell 13.8 Distribution Width Platelet Count 473 H Mean Platelet Volume 9.2 Immature 0.700 H Granulocytes % Neutrophils % 72.3 Lymphocytes % 19.0 Monocytes % 5.9 Eosinophils % 1.7 Basophils % 0.4 Nucleated Red Blood 0.0 Cells % Immature 0.120 H Granulocytes # Neutrophils # 12.0 H Lymphocytes # 3.2 H Monocytes # 1.0 H Eosinophils # 0.3 Basophils # 0.1 Nucleated Red Blood 0.0 Cells # Bedside Glucose 213 81 Subjective 24 Hr Interval Summary Constitutional: no complaints Exam/Review of Systems Vital Signs Vitals Vital Signs Date Temp Pulse Resp B/P (MAP) Pulse Ox O2 O2 Flow FiO2 Time Delivery Rate 03/22/18 98.3 71 18 106/53 97 15:25 (70) 03/22/18 21 04:20 03/21/18 Room Air 14:50 Intake and Output 03/21/18 03/21/18 03/22/18 1414:59 22:59 06:59 IntakeIntake Total 720 ml 1590 ml 750 ml OutputOutput Total 3 ml BalanceBalance 720 ml 1590 ml 747 ml Exam Constitutional: alert, oriented Respiratory: clear to auscultation Cardiovascular: regular rate and rhythm Gastrointestinal: soft; No distended Musculoskeletal: nl extremities to inspection Medications Medications Current Medications Ondansetron HCl (Zofran Inj) 4 mg Q6H PRN IV NAUSEA AND/OR VOMITING; Start 03/19/18 at 20:30 Metoclopramide HCl (Reglan) 10 mg Q6H PRN IV NAUSEA AND/OR VOMITING; Start 03/19/18 at 20:30 Albuterol (Proventil 0.083% (Neb)) 2.5 mg Q2H RESP THERAPY PRN NEB SHORTNESS OF BREATH; Start 03/19/18 at 20:30 Ipratropium [place] (Atrovent 0.02% (Neb)) 0.5 mg Q2H RESP THERAPY PRN NEB SHORTNESS OF BREATH; Start 03/19/18 at 20:30 Acetaminophen (Tylenol Liquid) 650 mg Q6H PRN PO PAIN LEVEL 1-3 OR FEVER Last administered on 03/19/18at 22:42; Admin Dose 650 MG; Start 03/19/18 at 20:30 Docusate Sodium (Colace) 100 mg Q12H PRN PO CONSTIPATION; Start 03/19/18 at 20:30 Bisacodyl (Dulcolax) 5 mg DAILY PRN PO CONSTIPATION; Start 03/19/18 at 20:30 Pantoprazole (Protonix Iv) 40 mg DAILY@06 IV Last administered on 03/22/18at 06:08; Admin Dose 40 MG; Start 03/20/18 at 06:00 Heparin Sodium (Porcine) (Heparin (5000 Units/1ml)) 5,000 unit Q8 SC Last administered on 03/19/18at 22:33; Admin Dose 5,000 UNIT; Start 03/19/18 at 22:00 Aspirin (Halfprin) 81 mg DAILY PO Last administered on 03/22/18at 08:20; Admin Dose 81 MG; Start 03/20/18 at 09:00 Carvedilol (Coreg) 6.25 mg BID PO Last administered on 03/22/18at 08:21; Admin Dose 6.25 MG; Start 03/20/18 at 09:00 Insulin Aspart (Novolog Insulin Pen) NOVOLOG *MODERATE* ALGORITHM WITH MEALS BEDTIME SC Last administered on 03/22/18at 08:23; Admin Dose 4 UNIT; Start 03/20/18 at 11:30 Miscellaneous Information 1 ea NOTE XX ; Start 03/20/18 at 10:30 Glucose (Glutose) 15 gm Q15M PRN PO DECREASED GLUCOSE; Start 03/20/18 at 10:30 Glucose (Glutose) 22.5 gm Q15M PRN PO DECREASED GLUCOSE; Start 03/20/18 at 10:30 Dextrose (D50w Syringe) 25 ml Q15M PRN IV DECREASED GLUCOSE; Start 03/20/18 at 10:30 Dextrose (D50w Syringe) 50 ml Q15M PRN IV DECREASED GLUCOSE; Start 03/20/18 at 10:30 Glucagon (Glucagen) 1 mg Q15M PRN IM DECREASED GLUCOSE; Start 03/20/18 at 10:30 Glucose (Glutose) 15 gm Q15M PRN BUCCAL DECREASED GLUCOSE; Start 03/20/18 at 10 :30 Ceftriaxone Sodium 50 ml @ 100 mls/hr Q24H IVPB Last administered on 03/21/18at 23:30; Admin Dose 100 MLS/HR; Start 03/21/18 at 00:00 Gabapentin (Neurontin) 300 mg QHS PO Last administered on 03/21/18 20:49; Admin Dose 300 MG; Start 03/21/18 at 00:00 Tramadol HCl (Ultram) 50 mg Q6H PRN PO PAIN Last administered on 03/21/18at 00:24; Admin Dose 50 MG; Start 03/21/18 at 00:00 Morphine Sulfate (morphine SULFATE (PF)) 1 mg Q4H PRN IV PAIN LEVEL 7-10 Last administered on 03/22/18 09:29; Admin Dose 1 MG; Start 03/21/18 at 00:30 Tamsulosin HCl (Flomax) 0.4 mg DAILY@2100 PO Last administered on 03/21/18 20:49; Admin Dose 0.4 MG; Start 03/21/18 at 21:00 Dextrose (D50w Syringe) ONCE PRN IV DECREASED GLUCOSE; Start 03/21/18 at 07:30; Stop 03/23/18 at 07:29 Metformin HCl (Glucophage) 850 mg BID WITH MEALS PO Last administered on 03/22/18 08:20; Admin Dose 850 MG; Start 03/21/18 at 13:00 Insulin Glargine (Lantus) 50 units DAILY@0800 SC Last administered on 03/22/18 08:24; Admin Dose 50 UNITS; Start 03/22/18 at 09:00 Miscellaneous Information (* Miscellaneous Pharmacy Order) D50 1/2 AMP + 10 UNITS... ONCE XX ; Start 03/21/18 at 22:00 Insulin Aspart (Novolog Insulin Pen) 15 unit WITH MEALS SC ; Start 03/22/18 at 17:55 Gabapentin (Neurontin) 300 mg DAILY PO ; Start 03/22/18 at 14:30 CORWIN EMANUEL Mar 22, 2018 16:40
--- NOTE | 2018-03-22 17:08 | CONS ---
Date/Time of Note Date/Time of Note DATE: 03/22/18 TIME: 17:05 Assessment/Plan Assessment/Plan Problems: (1) Diabetic ketoacidosis Status: Acute Comment: Resolving nicely. Qualifiers: Diabetes mellitus type: type 2 Diabetes mellitus complication detail: without coma Qualified Codes: E11.10 - Type 2 diabetes mellitus with ketoacidosis without coma (2) Acute prerenal azotemia Status: Acute Comment: Patient is going to receive 1 more fluid bolus to help bring this into line. At this time he is still prerenal (3) Acute kidney injury superimposed on CKD Status: Acute Comment: Improving nicely (4) Diabetes mellitus type 2 in nonobese Status: Chronic Comment: Has been on insulin as an outpatient. He can actually be on combination of insulin with oral agents in the setting to get this under better control than what he came in with (5) Hyperlipidemia associated with type 2 diabetes mellitus Status: Chronic Comment: Maintain statin therapy (6) Pyelonephritis Status: Acute Comment: This will need a more careful workup as we go forward. In addition this patient has evidence of a postvoid residual. Whether this is due to a neurogenic bladder large of benign prostatic hypertrophy is to be determined (7) Essential hypertension Status: Chronic Comment: Fair control at this time (8) SIRS (systemic inflammatory response syndrome) Status: Resolved Comment: Resolved Result Diagram: 03/22/18 0537 03/22/1837 Results 24hrs Laboratory Tests Test 03/21/18 17:27 03/21/18 20:22 03/21/18 20:56 03/21/18 23:03 Bedside Glucose 285 H 131 Sodium Level 140 135 Potassium Level 6.2 *H 6.8 *H Chloride Level 109 108 Carbon Dioxide Level 16 L 19 L Anion Gap 15 H 8 Blood Urea Nitrogen 35 H 37 H Creatinine 1.48 H 1.49 H Est Glomerular 48 L 48 L Filtrat Rate mL/min Glucose Level 134 # 169 Calcium Level 9.6 9.4 Test 03/22/18 02:05 03/22/18 05:37 03/22/18 08:00 03/22/18 11:46 Sodium Level 137 138 Potassium Level 7.1 *H 5.2 H Chloride Level 108 107 Carbon Dioxide Level 17 L 19 L Anion Gap 12 12 Blood Urea Nitrogen 35 H 34 H Creatinine 1.52 H 1.46 H Est Glomerular 47 L 49 L Filtrat Rate mL/min Glucose Level 262 H 246 H Calcium Level 9.3 9.4 White Blood Count 16.6 H Red Blood Count 4.25 L Hemoglobin 11.0 L Hematocrit 33.6 L Mean Corpuscular 79.1 L Volume Mean Corpuscular 25.9 L Hemoglobin Mean Corpuscular 32.7 Hemoglobin Concent Red Cell 13.8 Distribution Width Platelet Count 473 H Mean Platelet Volume 9.2 Immature 0.700 H Granulocytes % Neutrophils % 72.3 Lymphocytes % 19.0 Monocytes % 5.9 Eosinophils % 1.7 Basophils % 0.4 Nucleated Red Blood 0.0 Cells % Immature 0.120 H Granulocytes # Neutrophils # 12.0 H Lymphocytes # 3.2 H Monocytes # 1.0 H Eosinophils # 0.3 Basophils # 0.1 Nucleated Red Blood 0.0 Cells # Bedside Glucose 213 81 Consultation Date/Type/Reason Admit Date/Time Mar 19, 2018 at 20:19 Initial Consult Date 03/21/18 Type of Consult Endocrine Reason for Consultation Diabetes mellitus type 2 on insulin therapy with inadequate control admitted with DKA induced by urinary tract infection and pyelonephritis. Blood cultures with gram-positive cocci urine culture with gram-negative rods Requesting Provider: JONAH ANDRADE 24 HR Interval Summary Free Text/Dictation Patient sleeping in bed easily awakened Constitutional: no complaints Detailed Summary Endocrine: no complaints Exam/Review of Systems Vital Signs Vitals Vital Signs Date Temp Pulse Resp B/P (MAP) Pulse Ox O2 O2 Flow FiO2 Time Delivery Rate 03/22/18 72 16:01 03/22/18 98.3 18 106/53 97 15:25 (70) 03/22/18 21 04:20 03/21/18 Room Air 14:50 Intake and Output 03/21/18 03/21/18 03/22/18 1414:59 22:59 06:59 IntakeIntake Total 720 ml 1590 ml 750 ml OutputOutput Total 3 ml BalanceBalance 720 ml 1590 ml 747 ml Exam Constitutional: alert, oriented Respiratory: clear to auscultation, normal air movement Cardiovascular: regular rate and rhythm, nl pulses Gastrointestinal: rebound or guarding (Some flank tenderness) Medications Medications Current Medications Ondansetron HCl (Zofran Inj) 4 mg Q6H PRN IV NAUSEA AND/OR VOMITING; Start 03/19/18 at 20:30 Metoclopramide HCl (Reglan) 10 mg Q6H PRN IV NAUSEA AND/OR VOMITING; Start 03/19/18 at 20:30 Albuterol (Proventil 0.083% (Neb)) 2.5 mg Q2H RESP THERAPY PRN NEB SHORTNESS OF BREATH; Start 03/19/18 at 20:30 Ipratropium [place] (Atrovent 0.02% (Neb)) 0.5 mg Q2H RESP THERAPY PRN NEB SHORTNESS OF BREATH; Start 03/19/18 at 20:30 Acetaminophen (Tylenol Liquid) 650 mg Q6H PRN PO PAIN LEVEL 1-3 OR FEVER Last administered on 03/19/18at 22:42; Admin Dose 650 MG; Start 03/19/18 at 20:30 Docusate Sodium (Colace) 100 mg Q12H PRN PO CONSTIPATION; Start 03/19/18 at 20:30 Bisacodyl (Dulcolax) 5 mg DAILY PRN PO CONSTIPATION; Start 03/19/18 at 20:30 Aspirin (Halfprin) 81 mg DAILY PO Last administered on 03/22/18at 08:20; Admin Dose 81 MG; Start 03/20/18 at 09:00 Carvedilol (Coreg) 6.25 mg BID PO Last administered on 03/22/18at 08:21; Admin Dose 6.25 MG; Start 03/20/18 at 09:00 Insulin Aspart (Novolog Insulin Pen) NOVOLOG *MODERATE* ALGORITHM WITH MEALS BEDTIME SC Last administered on 03/22/18at 08:23; Admin Dose 4 UNIT; Start 03/20/18 at 11:30 Miscellaneous Information 1 ea NOTE XX ; Start 03/20/18 at 10:30 Glucose (Glutose) 15 gm Q15M PRN PO DECREASED GLUCOSE; Start 03/20/18 at 10:30 Glucose (Glutose) 22.5 gm Q15M PRN PO DECREASED GLUCOSE; Start 03/20/18 at 10:30 Dextrose (D50w Syringe) 25 ml Q15M PRN IV DECREASED GLUCOSE; Start 03/20/18 at 10:30 Dextrose (D50w Syringe) 50 ml Q15M PRN IV DECREASED GLUCOSE; Start 03/20/18 at 10:30 Glucagon (Glucagen) 1 mg Q15M PRN IM DECREASED GLUCOSE; Start 03/20/18 at 10:30 Glucose (Glutose) 15 gm Q15M PRN BUCCAL DECREASED GLUCOSE; Start 03/20/18 at 10:30 Ceftriaxone Sodium 50 ml @ 100 mls/hr Q24H IVPB Last administered on 03/21/18at 23:30; Admin Dose 100 MLS/HR; Start 03/21/18 at 00:00 Gabapentin (Neurontin) 300 mg QHS PO Last administered on 03/21/18at 20:49; Admin Dose 300 MG; Start 03/21/18 at 00:00 Tramadol HCl (Ultram) 50 mg Q6H PRN PO PAIN Last administered on 03/21/18at 00:24; Admin Dose 50 MG; Start 03/21/18 at 00:00 Morphine Sulfate (morphine SULFATE (PF)) 1 mg Q4H PRN IV PAIN LEVEL 7-10 Last administered on 03/22/18at 09:29; Admin Dose 1 MG; Start 03/21/18 at 00:30 Tamsulosin HCl (Flomax) 0.4 mg DAILY@2100 PO Last administered on 03/21/18at 20:49; Admin Dose 0.4 MG; Start 03/21/18 at 21:00 Dextrose (D50w Syringe) ONCE PRN IV DECREASED GLUCOSE; Start 03/21/18 at 07:3 0; Stop 03/23/18 at 07:29 Metformin HCl (Glucophage) 850 mg BID WITH MEALS PO Last administered on 03/22/18at 08:20; Admin Dose 850 MG; Start 03/21/18 at 13:00 Insulin Glargine (Lantus) 50 units DAILY@0800 SC Last administered on 03/22/18at 08:24; Admin Dose 50 UNITS; Start 03/22/18 at 09:00 Miscellaneous Information (* Miscellaneous Pharmacy Order) D50 1/2 AMP + 10 UNITS... ONCE XX ; Start 03/21/18 at 22:00 Insulin Aspart (Novolog Insulin Pen) 15 unit WITH MEALS SC ; Start 03/22/18 at 17:55 Gabapentin (Neurontin) 300 mg DAILY PO ; Start 03/22/18 at 14:30 Heparin Sodium (Porcine) (Heparin (5000 Units/1ml)) 5,000 unit Q12 SC ; Start 03/22/18 at 21:00 Pantoprazole (Protonix Tab) 40 mg DAILY@06 PO ; Start 03/23/18 at 06:00 Linagliptin (Tradjenta) 5 mg DAILY PO ; Start 03/22/18 at 17:00; Status UNJEAN DEWITT MD Mar 22, 2018 17:08
[2018-03-22] MEDS ORDERED: LACTATED RINGER'S 500 ML IV ONE (17:30)
[2018-03-22] MEDS: ACCU-CHEK XX SCH (17:47)
[2018-03-22] MEDS: GABAPENTIN 300 MG CAP PO SCH ×2 (17:47→21:37)
[2018-03-22] MEDS: LINAGLIPTIN 5 MG TABLET PO SCH (17:47)
--- NOTE | 2018-03-22 19:03 | NUR ---
EOSS: Pt a/o x 4, ambulatory, inserted new hoyos d/t retention, immediate urine return noted. Pt stated he feels better. Morphine was given x 2 d/t the chronic pain on pt's legs. Pt was seen by Dr. Osorio and adjusted some meds. K+ was elevated however is lower than previous , Dr. Chatterjee aware, no orders given. All needs attended,will endorse plan of care to oncoming shift accordingly.
[2018-03-22] MEDS ORDERED: ACCU-CHEK XX SCH (19:55)
[2018-03-22] MEDS: TAMSULOSIN (SR) 0.4 MG CAP PO SCH (21:37)
[2018-03-22] MEDS: CEFTRIAXONE 1 GM/50 ML (PMX) 50 ML IVPB SCH (23:30)
[2018-03-23] VITALS (12 sets, daily range): BP systolic 113–132; BP diastolic 55–63; PULSE 68–89; RESP 18–19
[2018-03-23] MEDS: ACETAMINOPHEN 650MG/20.3ML CUP PO PRN ×2 (05:31→17:19)
[2018-03-23] MEDS: morphine SULFATE/PF (2 MG/2 ML) SYG IV PRN ×2 (05:31→17:19)
[2018-03-23] MEDS: PANTOPRAZOLE (EC) 40 MG TAB PO SCH (05:31)
--- NOTE | 2018-03-23 07:19 | NUR ---
Pt a/a/ox4, VS stable afebrile. C/o leg pain medicate with Morphine and Tylenol liquid x1. At bed time Blood sugar was dropped to 51 and hypoglycemia tx done Last blood sugar within normal limit. report given to Flor, Continue to monitor.
[2018-03-23] MEDS: INSULIN ASPART [NOVOLOG] 3 ML PEN SC SCH ×7 (07:55→20:36)
[2018-03-23] MEDS: ASPIRIN (EC) 81 MG TAB PO SCH (08:08)
[2018-03-23] MEDS: ACCU-CHEK XX SCH (08:08)
[2018-03-23] MEDS: LINAGLIPTIN 5 MG TABLET PO SCH (08:09)
[2018-03-23] MEDS: GABAPENTIN 300 MG CAP PO SCH ×2 (08:09→20:28)
[2018-03-23] MEDS: INSULIN GLARGINE [LANTus] (100 UNITS/ML) SYG SC SCH (08:13)
[2018-03-23] MEDS: HEPARIN 5,000 UNIT/1 ML VIAL SC SCH ×2 (08:25→20:36)
--- NOTE | 2018-03-23 08:25 | NUR ---
RN NOTES: Pt refused heparin subq this AM, discussed risks of not taking it, pt voiced understanding and still did not want to take medication.
--- NOTE | 2018-03-23 12:00 | NUR ---
RN NOTES: Pt c/o dull sensation, numbness and tingling across his chest and face, denies pain, BG 235, VS stable. Notified Dr. Chatterjee, orders received and carried out accordingly. Will continue to monitor pt.
[2018-03-23] MEDS ORDERED: LACTATED RINGER'S 500 ML IV ONE (14:00)
--- NOTE | 2018-03-23 14:05 | PN ---
Date/Time of Note Date/Time of Note DATE: 03/23/18 TIME: 14:02 Assessment/Plan VTE Prophylaxis Risk score (from Ns)>0 risk: 2 SCD applied (from Ns): No SCD contraindicated: low risk/ambulating Pharmacological prophylaxis: heparin Lines/Catheters IV Catheter [facility]from [facility] [place] Urinary Cath still in place: No Assessment/Plan Problems: (1) Diabetic ketoacidosis Status: Resolved Comment: Resolved with treatment of the underlying infection and standard protocol Qualifiers: Diabetes mellitus type: type 2 Diabetes mellitus complication detail: without coma Qualified Codes: E11.10 - Type 2 diabetes mellitus with ketoacidosis without coma (2) Diabetes mellitus type 2 in nonobese Status: Chronic Comment: Markedly improved glycemic control (3) Pyelonephritis Status: Acute Comment: Proteus urinary tract infection with pyelonephritis. Is very concerning that this is been a recurrent event and he should have a formalized urologic evaluation and imaging studies. This as per primary team and his outpatient physicians under [facility] [place] (4) Acute kidney injury superimposed on CKD Status: Acute Comment: Improving nicely. He still is a little bit prerenal (5) Essential hypertension Status: Chronic Comment: Adequate control at the present time (6) Acute prerenal azotemia Status: Acute Comment: 1 more fluid bolus (7) Hyperlipidemia associated with type 2 diabetes mellitus Status: Chronic Comment: Continue with statin therapy Result Diagram: 03/23/18 0629 03/23/18 0629 Results 24hrs Laboratory Tests Test 03/22/18 17:44 03/22/18 21:30 03/22/18 21:50 03/22/18 22:37 Bedside Glucose 161 51 L 56 L 102 Test 03/22/18 23:06 03/23/18 06:29 03/23/18 07:56 03/23/18 09:25 Bedside Glucose 121 77 White Blood Count 14.5 H Red Blood Count 3.91 L Hemoglobin 10.2 L Hematocrit 30.8 L Mean Corpuscular 78.8 L Volume Mean Corpuscular 26.1 L Hemoglobin Mean Corpuscular 33.1 Hemoglobin Concent Red Cell 13.7 Distribution Width Platelet Count 416 H Mean Platelet 8.9 Volume Immature 0.700 H Granulocytes % Neutrophils % 73.7 Lymphocytes % 17.3 Monocytes % 6.3 Eosinophils % 1.7 Basophils % 0.3 Nucleated Red 0.0 Blood Cells % Immature 0.100 H Granulocytes # Neutrophils # 10.7 H Lymphocytes # 2.5 Monocytes # 0.9 Eosinophils # 0.2 Basophils # 0.1 Nucleated Red 0.0 Blood Cells # Sodium Level 136 Potassium Level 4.5 Chloride Level 104 Carbon Dioxide 23 Level Anion Gap 9 Blood Urea 32 H Nitrogen Creatinine 1.32 H Est Glomerular 55 L Filtrat Rate mL/min Glucose Level 100 # Calcium Level 9.0 Lab Scanned Report REFERENCE LAB Test 03/23/18 11:41 Bedside Glucose 235 H Subjective 24 Hr Interval Summary Free Text/Dictation Patient reports he is feeling better although not 100%. He reports he has had recurrent urinary tract infections several times over the last 4 years is curious as to why Constitutional: no complaints Respiratory: no complaints Cardiovascular: no complaints Gastrointestinal: no complaints Genitourinary: no complaints Exam/Review of Systems Vital Signs Vitals Vital Signs Date Temp Pulse Resp B/P (MAP) Pulse Ox O2 O2 Flow FiO2 Time Delivery Rate 03/23/18 82 12:01 03/23/18 97.7 18 131/59 99 11:39 (83) 03/23/18 2.0 27 04:41 03/21/18 Room Air 14:50 Intake and Output 03/22/18 03/22/18 03/23/18 1515:00 23:00 07:00 IntakeIntake Total 1000 ml 650 ml OutputOutput Total 1100 ml 800 ml BalanceBalance -100 ml -150 ml Exam Constitutional: alert, oriented Neck: supple, non-tender Respiratory: clear to auscultation, normal air movement Cardiovascular: regular rate and rhythm, nl pulses Medications Medications Current Medications Ondansetron HCl (Zofran Inj) 4 mg Q6H PRN IV NAUSEA AND/OR VOMITING; Start 03/19/18 at 20:30 Metoclopramide HCl (Reglan) 10 mg Q6H PRN IV NAUSEA AND/OR VOMITING; Start 03/19/18 at 20:30 Albuterol (Proventil 0.083% (Neb)) 2.5 mg Q2H RESP THERAPY PRN NEB SHORTNESS OF BREATH; Start 03/19/18 at 20:30 Ipratropium [place] (Atrovent 0.02% (Neb)) 0.5 mg Q2H RESP THERAPY PRN NEB SHORTNESS OF BREATH; Start 03/19/18 at 20:30 Acetaminophen (Tylenol Liquid) 650 mg Q6H PRN PO PAIN LEVEL 1-3 OR FEVER Last administered on 03/23/18at 05:31; Admin Dose 650 MG; Start 03/19/18 at 20:30 Docusate Sodium (Colace) 100 mg Q12H PRN PO CONSTIPATION; Start 03/19/18 at 20:30 Bisacodyl (Dulcolax) 5 mg DAILY PRN PO CONSTIPATION; Start 03/19/18 at 20:30 Aspirin (Halfprin) 81 mg DAILY PO Last administered on 03/23/18at 08:08; Admin Dose 81 MG; Start 03/20/18 at 09:00 Insulin Aspart (Novolog Insulin Pen) NOVOLOG *MODERATE* ALGORITHM WITH MEALS BEDTIME SC Last administered on 03/23/18at 12:03; Admin Dose 6 UNIT; Start 03/20/18 at 11:30 Miscellaneous Information 1 ea NOTE XX ; Start 03/20/18 at 10:30 Glucose (Glutose) 15 gm Q15M PRN PO DECREASED GLUCOSE; Start 03/20/18 at 10:30 Glucose (Glutose) 22.5 gm Q15M PRN PO DECREASED GLUCOSE; Start 03/20/18 at 10 :30 Dextrose (D50w Syringe) 25 ml Q15M PRN IV DECREASED GLUCOSE; Start 03/20/18 at 10:30 Dextrose (D50w Syringe) 50 ml Q15M PRN IV DECREASED GLUCOSE; Start 03/20/18 at 10:30 Glucagon (Glucagen) 1 mg Q15M PRN IM DECREASED GLUCOSE; Start 03/20/18 at 10:30 Glucose (Glutose) 15 gm Q15M PRN BUCCAL DECREASED GLUCOSE Last administered on 03/22/18at 21:35; Admin Dose 15 GM; Start 03/20/18 at 10:30 Ceftriaxone Sodium 50 ml @ 100 mls/hr Q24H IVPB Last administered on 03/22/18at 23:30; Admin Dose 100 MLS/HR; Start 03/21/18 at 00:00 Gabapentin (Neurontin) 300 mg QHS PO Last administered on 03/22/18at 21:37; Admin Dose 300 MG; Start 03/21/18 at 00:00 Tramadol HCl (Ultram) 50 mg Q6H PRN PO PAIN Last administered on 03/21/18at 00:24; Admin Dose 50 MG; Start 03/21/18 at 00:00 Morphine Sulfate (morphine SULFATE (PF)) 1 mg Q4H PRN IV PAIN LEVEL 7-10 Last administered on 03/23/18 05:31; Admin Dose 1 MG; Start 03/21/18 at 00:30 Tamsulosin HCl (Flomax) 0.4 mg DAILY@2100 PO Last administered on 03/22/18at 21:37; Admin Dose 0.4 MG; Start 03/21/18 at 21:00 Insulin Glargine (Lantus) 50 units DAILY@0800 SC Last administered on 03/23/18 08:13; Admin Dose 50 UNITS; Start 03/22/18 at 09:00 Miscellaneous Information (* Miscellaneous Pharmacy Order) D50 12 AMP + 10 UNITS... ONCE XX ; Start 03/21/18 at 22:00 Insulin Aspart (Novolog Insulin Pen) 15 unit WITH MEALS SC Last administered on 03/23/18at 12:03; Admin Dose 15 UNIT; Start 03/22/18 at 17:55 Gabapentin (Neurontin) 300 mg DAILY PO Last administered on 03/23/18 08:09; Admin Dose 300 MG; Start 03/22/18 at 14:30 Heparin Sodium (Porcine) (Heparin (5000 Units/1ml)) 5,000 unit Q12 SC ; Start 03/22/18 at 21:00 Pantoprazole (Protonix Tab) 40 mg DAILY@06 PO Last administered on 03/23/18at 05:31; Admin Dose 40 MG; Start 03/23/18 at 06:00 Linagliptin (Tradjenta) 5 mg DAILY PO Last administered on 03/23/18at 08:09; Admin Dose 5 MG; Start 03/22/18 at 17:00 Carvedilol (Coreg) 12.5 mg BID PO ; Start 03/23/18 at 21:00 Lactated Ringer's 500 ml @ 500 mls/hr Q1H ONCE IV ; Start 03/23/18 at 14:00; Stop 03/23/18 at 14:59 JEAN TRAYLOR MD Mar 23, 2018 14:05
--- NOTE | 2018-03-23 14:25 | CONS ---
Date/Time of Note Date/Time of Note DATE: 03/23/18 TIME: 14:25 Assessment/Plan Assessment/Plan Assessment/Plan 1. acute hyperkalemia due to RATNA 2. Hyponatremia due to hypovolemic Hyponatremia from DKA- Resolved 3. acute Kidney injury on CKD III due to ATN + prerenal azotemia- Improving 4 Acute diabeitc ketoacidosis due to UTI + ? complaince- resolved 5. 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 H/o HTN 8. H/o HL Plan: BUN/Cr 32/1.32, K normal , pt is in post obstruction diuresis, montor electrolytes and replace agressively Hoyos catheter in place, urology has been consulted on the case Endocrine following for DM management, will follow up Result Diagram: 03/23/18 0629 03/23/18 0629 Results 24hrs Laboratory Tests Test 03/22/18 17:44 03/22/18 21:30 03/22/18 21:50 03/22/18 22:37 Bedside Glucose 161 51 L 56 L 102 Test 03/22/18 23:06 03/23/18 06:29 03/23/18 07:56 03/23/18 09:25 Bedside Glucose 121 77 White Blood Count 14.5 H Red Blood Count 3.91 L Hemoglobin 10.2 L Hematocrit 30.8 L Mean Corpuscular 78.8 L Volume Mean Corpuscular 26.1 L Hemoglobin Mean Corpuscular 33.1 Hemoglobin Concent Red Cell 13.7 Distribution Width Platelet Count 416 H Mean Platelet 8.9 Volume Immature 0.700 H Granulocytes % Neutrophils % 73.7 Lymphocytes % 17.3 Monocytes % 6.3 Eosinophils % 1.7 Basophils % 0.3 Nucleated Red 0.0 Blood Cells % Immature 0.100 H Granulocytes # Neutrophils # 10.7 H Lymphocytes # 2.5 Monocytes # 0.9 Eosinophils # 0.2 Basophils # 0.1 Nucleated Red 0.0 Blood Cells # Sodium Level 136 Potassium Level 4.5 Chloride Level 104 Carbon Dioxide 23 Level Anion Gap 9 Blood Urea 32 H Nitrogen Creatinine 1.32 H Est Glomerular 55 L Filtrat Rate mL/min Glucose Level 100 # Calcium Level 9.0 Lab Scanned Report REFERENCE LAB Test 03/23/18 11:41 Bedside Glucose 235 H Consultation Date/Type/Reason Admit Date/Time Mar 19, 2018 at 20:19 Initial Consult Date 03/19/2018 Type of Consult NEPHROLOGY Requesting Provider: JONAH ANDRADE 24 HR Interval Summary Free Text/Dictation BUN/Cr improved to 32/1.32, Urine cx grew proteus mirabilis Exam/Review of Systems Vital Signs Vitals Vital Signs Date Temp Pulse Resp B/P (MAP) Pulse Ox O2 O2 Flow FiO2 Time Delivery Rate 03/23/18 82 12:01 03/23/18 97.7 18 131/59 99 11:39 (83) 03/23/18 2.0 27 04:41 03/21/18 Room Air 14:50 Intake and Output 03/22/18 03/22/18 03/23/18 1515:00 23:00 07:00 IntakeIntake Total 1000 ml 650 ml OutputOutput Total 1100 ml 800 ml BalanceBalance -100 ml -150 ml Exam Constitutional: alert, oriented Respiratory: clear to auscultation Cardiovascular: regular rate and rhythm Gastrointestinal: soft; No distended, + hoyos catheter Musculoskeletal: nl extremities to in Medications Medications Current Medications Ondansetron HCl (Zofran Inj) 4 mg Q6H PRN IV NAUSEA AND/OR VOMITING; Start 03/19/18 at 20:30 Metoclopramide HCl (Reglan) 10 mg Q6H PRN IV NAUSEA AND/OR VOMITING; Start 03/19/18 at 20:30 Albuterol (Proventil 0.083% (Neb)) 2.5 mg Q2H RESP THERAPY PRN NEB SHORTNESS OF BREATH; Start 03/19/18 at 20:30 Ipratropium [place] (Atrovent 0.02% (Neb)) 0.5 mg Q2H RESP THERAPY PRN NEB SHORTNESS OF BREATH; Start 03/19/18 at 20:30 Acetaminophen (Tylenol Liquid) 650 mg Q6H PRN PO PAIN LEVEL 1-3 OR FEVER Last administered on 03/23/18at 05:31; Admin Dose 650 MG; Start 03/19/18 at 20:30 Docusate Sodium (Colace) 100 mg Q12H PRN PO CONSTIPATION; Start 03/19/18 at 20:30 Bisacodyl (Dulcolax) 5 mg DAILY PRN PO CONSTIPATION; Start 03/19/18 at 20:30 Aspirin (Halfprin) 81 mg DAILY PO Last administered on 03/23/18at 08:08; Admin Dose 81 MG; Start 03/20/18 at 09:00 Insulin Aspart (Novolog Insulin Pen) NOVOLOG *MODERATE* ALGORITHM WITH MEALS BEDTIME SC Last administered on 03/23/18at 12:03; Admin Dose 6 UNIT; Start 03/20/18 at 11:30 Miscellaneous Information 1 ea NOTE XX ; Start 03/20/18 at 10:30 Glucose (Glutose) 15 gm Q15M PRN PO DECREASED GLUCOSE; Start 03/20/18 at 10:30 Glucose (Glutose) 22.5 gm Q15M PRN PO DECREASED GLUCOSE; Start 03/20/18 at 10:30 Dextrose (D50w Syringe) 25 ml Q15M PRN IV DECREASED GLUCOSE; Start 03/20/18 at 10:30 Dextrose (D50w Syringe) 50 ml Q15M PRN IV DECREASED GLUCOSE; Start 03/20/18 at 10:30 Glucagon (Glucagen) 1 mg Q15M PRN IM DECREASED GLUCOSE; Start 03/20/18 at 10:30 Glucose (Glutose) 15 gm Q15M PRN BUCCAL DECREASED GLUCOSE Last administered on 03/22/18at 21:35; Admin Dose 15 GM; Start 03/20/18 at 10:30 Ceftriaxone Sodium 50 ml @ 100 mls/hr Q24H IVPB Last administered on 03/22/18at 23:30; Admin Dose 100 MLS/HR; Start 03/21/18 at 00:00 Gabapentin (Neurontin) 300 mg QHS PO Last administered on 03/22/18at 21:37; Admin Dose 300 MG; Start 03/21/18 at 00:00 Tramadol HCl (Ultram) 50 mg Q6H PRN PO PAIN Last administered on 03/21/18at 00:24; Admin Dose 50 MG; Start 03/21/18 at 00:00 Morphine Sulfate (morphine SULFATE (PF)) 1 mg Q4H PRN IV PAIN LEVEL 7-10 Last administered on 03/23/18at 05:31; Admin Dose 1 MG; Start 03/21/18 at 00:30 Tamsulosin HCl (Flomax) 0.4 mg DAILY@2100 PO Last administered on 03/22/18at 21:37; Admin Dose 0.4 MG; Start 03/21/18 at 21:00 Insulin Glargine (Lantus) 50 units DAILY@0800 SC Last administered on 03/23/18at 08:13; Admin Dose 50 UNITS; Start 03/22/18 at 09:00 Miscellaneous Information (* Miscellaneous Pharmacy Order) D50 1/2 AMP + 10 UNITS... ONCE XX ; Start 03/21/18 at 22:00 Insulin Aspart (Novolog Insulin Pen) 15 unit WITH MEALS SC Last administered on 03/23/18at 12:03; Admin Dose 15 UNIT; Start 03/22/18 at 17:55 Gabapentin (Neurontin) 300 mg DAILY PO Last administered on 03/23/18at 08:09; Admin Dose 300 MG; Start 03/22/18 at 14:30 Heparin Sodium (Porcine) (Heparin (5000 Units/1ml)) 5,000 unit Q12 SC ; Start 03/22/18 at 21:00 Pantoprazole (Protonix Tab) 40 mg DAILY@06 PO Last administered on 03/23/18at 05:31; Admin Dose 40 MG; Start 03/23/18 at 06:00 Linagliptin (Tradjenta) 5 mg DAILY PO Last administered on 03/23/18at 08:09; Admin Dose 5 MG; Start 03/22/18 at 17:00 Carvedilol (Coreg) 12.5 mg BID PO ; Start 03/23/18 at 21:00 Lactated Ringer's 500 ml @ 500 mls/hr Q1H ONCE IV ; Start 03/23/18 at 14:00; Stop 03/23/18 at 14:59 Iohexol ((Gastrografin therapeutic equivalent)) 900 ml GIVE PRIOR TO CT ONCE PO ; Start 03/23/18 at 14:30; Stop 03/23/18 at 14:31 TALITA DICKENS MD Mar 23, 2018 14:25
[2018-03-23] MEDS ORDERED: IOHEXOL 14.3 MG(I)/ML (ADULT) BTL PO ONE (14:30)
--- NOTE | 2018-03-23 16:32 | PN ---
Date/Time of Note Date/Time of Note DATE: 03/23/18 TIME: 16:23 Assessment/Plan VTE Prophylaxis Risk score (from Nsg)>0 risk: 2 Pharmacological prophylaxis: heparin Lines/Catheters IV Catheter Type (from Nrsg): Saline Lock Urinary Cath still in place: No Assessment/Plan Hospital Course 63 yo male with DM presents with DKA now resolved. Hospital course complicated by hyperkalemia 1. DM s/p DKA Continue subcu insulin regimen 2. RATNA on CKD secondary to ATN from UTI and obstructive uropathy from neuroge walter bladder Patient with evidence of neurogenic bladder, indwelling Ryan catheter placed Continue antibiotics for UTI, etiology of UTI likely secondary to urinary stasis from neurogenic bladder Nephrology following Urology consultation obtained 3. Hyperkalemia-improved Status post insulin and fluids as well as Kayexalate 4. UTI secondary to urinary stasis from neurogenic bladder Continue Rocephin Urinary culture noted 5. Chronic neuropathy Continue gabapentin Prophylaxis: Heparin DC planning: Anticipate DC to home the next 1-2 days once hyperkalemia has remained resolved Result Diagram: 03/23/18 0629 03/23/18 0629 Results 24hrs Laboratory Tests Test 03/22/18 17:44 03/22/18 21:30 03/22/18 21:50 03/22/18 22:37 Bedside Glucose 161 51 L 56 L 102 Test 03/22/18 23:06 03/23/18 06:29 03/23/18 07:56 03/23/18 09:25 Bedside Glucose 121 77 White Blood Count 14.5 H Red Blood Count 3.91 L Hemoglobin 10.2 L Hematocrit 30.8 L Mean Corpuscular 78.8 L Volume Mean Corpuscular 26.1 L Hemoglobin Mean Corpuscular 33.1 Hemoglobin Concent Red Cell 13.7 Distribution Width Platelet Count 416 H Mean Platelet 8.9 Volume Immature 0.700 H Granulocytes % Neutrophils % 73.7 Lymphocytes % 17.3 Monocytes % 6.3 Eosinophils % 1.7 Basophils % 0.3 Nucleated Red 0.0 Blood Cells % Immature 0.100 H Granulocytes # Neutrophils # 10.7 H Lymphocytes # 2.5 Monocytes # 0.9 Eosinophils # 0.2 Basophils # 0.1 Nucleated Red 0.0 Blood Cells # Sodium Level 136 Potassium Level 4.5 Chloride Level 104 Carbon Dioxide 23 Level Anion Gap 9 Blood Urea 32 H Nitrogen Creatinine 1.32 H Est Glomerular 55 L Filtrat Rate mL/min Glucose Level 100 # Calcium Level 9.0 Lab Scanned Report REFERENCE LAB Test 03/23/18 11:41 03/23/18 13:34 Bedside Glucose 235 H Troponin I < 0.012 Subjective 24 Hr Interval Summary Neurologic: other (Neuropathy in the chest and face) Exam/Review of Systems Vital Signs Vitals Vital Signs Date Temp Pulse Resp B/P (MAP) Pulse Ox O2 O2 Flow FiO2 Time Delivery Rate 03/23/18 98.2 84 19 127/58 97 15:36 (81) 03/23/18 2.0 27 04:41 03/21/18 Room Air 14:50 Intake and Output 03/22/18 03/22/18 03/23/18 1515:00 23:00 07:00 IntakeIntake Total 1000 ml 650 ml OutputOutput Total 1100 ml 800 ml BalanceBalance -100 ml -150 ml Exam Constitutional: alert, oriented Respiratory: clear to auscultation Cardiovascular: regular rate and rhythm Gastrointestinal: soft; No distended Musculoskeletal: nl extremities to inspection Medications Medications Current Medications Ondansetron HCl (Zofran Inj) 4 mg Q6H PRN IV NAUSEA AND/OR VOMITING; Start 03/19/18 at 20:30 Metoclopramide HCl (Reglan) 10 mg Q6H PRN IV NAUSEA AND/OR VOMITING; Start 03/19/18 at 20:30 Albuterol (Proventil 0.083% (Neb)) 2.5 mg Q2H RESP THERAPY PRN NEB SHORTNESS OF BREATH; Start 03/19/18 at 20:30 Ipratropium [place] (Atrovent 0.02% (Neb)) 0.5 mg Q2H RESP THERAPY PRN NEB SHORTNESS OF BREATH; Start 03/19/18 at 20:30 Acetaminophen (Tylenol Liquid) 650 mg Q6H PRN PO PAIN LEVEL 1-3 OR FEVER Last administered on 03/23/18at 05:31; Admin Dose 650 MG; Start 03/19/18 at 20:30 Docusate Sodium (Colace) 100 mg Q12H PRN PO CONSTIPATION; Start 03/19/18 at 20:30 Bisacodyl (Dulcolax) 5 mg DAILY PRN PO CONSTIPATION; Start 03/19/18 at 20:30 Aspirin (Halfprin) 81 mg DAILY PO Last administered on 03/23/18at 08:08; Admin Dose 81 MG; Start 03/20/18 at 09:00 Insulin Aspart (Novolog Insulin Pen) NOVOLOG *MODERATE* ALGORITHM WITH MEALS BEDTIME SC Last administered on 03/23/18at 12:03; Admin Dose 6 UNIT; Start 03/20/18 at 11:30 Miscellaneous Information 1 ea NOTE XX ; Start 03/20/18 at 10:30 Glucose (Glutose) 15 gm Q15M PRN PO DECREASED GLUCOSE; Start 03/20/18 at 10:30 Glucose (Glutose) 22.5 gm Q15M PRN PO DECREASED GLUCOSE; Start 03/20/18 at 10:30 Dextrose (D50w Syringe) 25 ml Q15M PRN IV DECREASED GLUCOSE; Start 03/20/18 at 10:30 Dextrose (D50w Syringe) 50 ml Q15M PRN IV DECREASED GLUCOSE; Start 03/20/18 at 10:30 Glucagon (Glucagen) 1 mg Q15M PRN IM DECREASED GLUCOSE; Start 03/20/18 at 10:30 Glucose (Glutose) 15 gm Q15M PRN BUCCAL DECREASED GLUCOSE Last administered on 03/22/18at 21:35; Admin Dose 15 GM; Start 03/20/18 at 10:30 Ceftriaxone Sodium 50 ml @ 100 mls/hr Q24H IVPB Last administered on 03/22/18at 23:30; Admin Dose 100 MLS/HR; Start 03/21/18 at 00:00 Gabapentin (Neurontin) 300 mg QHS PO Last administered on 03/22/18at 21:37; Admin Dose 300 MG; Start 03/21/18 at 00:00 Tramadol HCl (Ultram) 50 mg Q6H PRN PO PAIN Last administered on 03/21/18at 00:24; Admin Dose 50 MG; Start 03/21/18 at 00:00 Morphine Sulfate (morphine SULFATE (PF)) 1 mg Q4H PRN IV PAIN LEVEL 7-10 Last administered on 03/23/18at 05:31; Admin Dose 1 MG; Start 03/21/18 at 00:30 Tamsulosin HCl (Flomax) 0.4 mg DAILY@2100 PO Last administered on 03/22/18at 21:37; Admin Dose 0.4 MG; Start 03/21/18 at 21:00 Insulin Glargine (Lantus) 50 units DAILY@0800 SC Last administered on 03/23/18at 08:13; Admin Dose 50 UNITS; Start 03/22/18 at 09:00 Miscellaneous Information (* Miscellaneous Pharmacy Order) D50 1/2 AMP + 10 UNITS... ONCE XX ; Start 03/21/18 at 22:00 Insulin Aspart (Novolog Insulin Pen) 15 unit WITH MEALS SC Last administered on 03/23/18at 12:03; Admin Dose 15 UNIT; Start 03/22/18 at 17:55 Gabapentin (Neurontin) 300 mg DAILY PO Last administered on 03/23/18at 08:09; Admin Dose 300 MG; Start 03/22/18 at 14:30 Heparin Sodium (Porcine) (Heparin (5000 Units/1ml)) 5,000 unit Q12 SC ; Start 03/22/18 at 21:00 Pantoprazole (Protonix Tab) 40 mg DAILY@06 PO Last administered on 03/23/18at 05:31; Admin Dose 40 MG; Start 03/23/18 at 06:00 Linagliptin (Tradjenta) 5 mg DAILY PO Last administered on 03/23/18at 08:09; Admin Dose 5 MG; Start 03/22/18 at 17:00 Carvedilol (Coreg) 12.5 mg BID PO ; Start 03/23/18 at 21:00 CORWIN EMANUEL Mar 23, 2018 16:32
--- NOTE | 2018-03-23 17:00 | CONS ---
Date/Time of Note Date/Time of Note DATE: 03/23/18 TIME: 17:00 Assessment/Plan Assessment/Plan Hospital Course Type 2 DM -decrease lantus to 45 units daily -continue novolog 15 units TIDAC -continue tradjenta 5mg po daily -metformin has been discontinued due to diarrhea -continue novolog moderate dose correction scale AC and HS -check FS AC and HS Result Diagram: 03/23/18 0629 03/23/18 0629 Results 24hrs Laboratory Tests Test 03/22/18 17:44 03/22/18 21:30 03/22/18 21:50 03/22/18 22:37 Bedside Glucose 161 51 L 56 L 102 Test 03/22/18 23:06 03/23/18 06:29 03/23/18 07:56 03/23/18 09:25 Bedside Glucose 121 77 White Blood Count 14.5 H Red Blood Count 3.91 L Hemoglobin 10.2 L Hematocrit 30.8 L Mean Corpuscular 78.8 L Volume Mean Corpuscular 26.1 L Hemoglobin Mean Corpuscular 33.1 Hemoglobin Concent Red Cell 13.7 Distribution Width Platelet Count 416 H Mean Platelet 8.9 Volume Immature 0.700 H Granulocytes % Neutrophils % 73.7 Lymphocytes % 17.3 Monocytes % 6.3 Eosinophils % 1.7 Basophils % 0.3 Nucleated Red 0.0 Blood Cells % Immature 0.100 H Granulocytes # Neutrophils # 10.7 H Lymphocytes # 2.5 Monocytes # 0.9 Eosinophils # 0.2 Basophils # 0.1 Nucleated Red 0.0 Blood Cells # Sodium Level 136 Potassium Level 4.5 Chloride Level 104 Carbon Dioxide 23 Level Anion Gap 9 Blood Urea 32 H Nitrogen Creatinine 1.32 H Est Glomerular 55 L Filtrat Rate mL/min Glucose Level 100 # Calcium Level 9.0 Lab Scanned Report REFERENCE LAB Test 03/23/18 11:41 03/23/18 13:34 Bedside Glucose 235 H Troponin I < 0.012 Consultation Date/Type/Reason Admit Date/Time Mar 19, 2018 at 20:19 Initial Consult Date 03/21/18 Type of Consult Endocrinology Requesting Provider: JONAH ANDRADE 24 HR Interval Summary Free Text/Dictation Patient seen and examined at bedside. Novolog dose adjust from 25 units to 15 units due to hypoglycemia. Fasting FS was in the 70's this morning. Exam/Review of Systems Vital Signs Vitals Vital Signs Date Temp Pulse Resp B/P (MAP) Pulse Ox O2 O2 Flow FiO2 Time Delivery Rate 03/23/18 89 16:01 03/23/18 98.2 19 127/58 97 15:36 (81) 03/23/18 2.0 27 04:41 03/21/18 Room Air 14:50 Intake and Output 03/22/18 03/22/18 03/23/18 1515:00 23:00 07:00 IntakeIntake Total 1000 ml 650 ml OutputOutput Total 1100 ml 800 ml BalanceBalance -100 ml -150 ml Exam General: Comfortable in appearance, not in acute distress. Skin appropriate for ethnicity Eye: Extraocular movements are intact, Normal conjunctiva. HENT: Normocephalic, atraumatic. Respiratory: Respirations are non-labored, Breath sounds are equal, Symmetrical chest wall expansion. Cardiovascular: S1, S2. No murmur. No LE edema Gastrointestinal: Soft, Non-tender, Non-distended, Normal bowel sounds. Integumentary: Warm to touch. Neurologic: Alert, Oriented. Cognition and Speech: Speech clear and coherent, Functional cognition intact. Psychiatric: Cooperative, Appropriate mood & affect. Medications Medications Current Medications Ondansetron HCl (Zofran Inj) 4 mg Q6H PRN IV NAUSEA AND/OR VOMITING; Start 03/19/18 at 20:30 Metoclopramide HCl (Reglan) 10 mg Q6H PRN IV NAUSEA AND/OR VOMITING; Start 03/19/18 at 20:30 Albuterol (Proventil 0.083% (Neb)) 2.5 mg Q2H RESP THERAPY PRN NEB SHORTNESS OF BREATH; Start 03/19/18 at 20:30 Ipratropium [place] (Atrovent 0.02% (Neb)) 0.5 mg Q2H RESP THERAPY PRN NEB SHORTNESS OF BREATH; Start 03/19/18 at 20:30 Acetaminophen (Tylenol Liquid) 650 mg Q6H PRN PO PAIN LEVEL 1-3 OR FEVER Last administered on 03/23/18at 05:31; Admin Dose 650 MG; Start 03/19/18 at 20:30 Docusate Sodium (Colace) 100 mg Q12H PRN PO CONSTIPATION; Start 03/19/18 at 20:30 Bisacodyl (Dulcolax) 5 mg DAILY PRN PO CONSTIPATION; Start 03/19/18 at 20:30 Aspirin (Halfprin) 81 mg DAILY PO Last administered on 03/23/18at 08:08; Admin Dose 81 MG; Start 03/20/18 at 09:00 Insulin Aspart (Novolog Insulin Pen) NOVOLOG *MODERATE* ALGORITHM WITH MEALS BEDTIME SC Last administered on 03/23/18at 12:03; Admin Dose 6 UNIT; Start 03/20/18 at 11:30 Miscellaneous Information 1 ea NOTE XX ; Start 03/20/18 at 10:30 Glucose (Glutose) 15 gm Q15M PRN PO DECREASED GLUCOSE; Start 03/20/18 at 10:30 Glucose (Glutose) 22.5 gm Q15M PRN PO DECREASED GLUCOSE; Start 03/20/18 at 10:30 Dextrose (D50w Syringe) 25 ml Q15M PRN IV DECREASED GLUCOSE; Start 03/20/18 at 10:30 Dextrose (D50w Syringe) 50 ml Q15M PRN IV DECREASED GLUCOSE; Start 03/20/18 at 10:30 Glucagon (Glucagen) 1 mg Q15M PRN IM DECREASED GLUCOSE; Start 03/20/18 at 10:30 Glucose (Glutose) 15 gm Q15M PRN BUCCAL DECREASED GLUCOSE Last administered on 03/22/18at 21:35; Admin Dose 15 GM; Start 03/20/18 at 10:30 Ceftriaxone Sodium 50 ml @ 100 mls/hr Q24H IVPB Last administered on 03/22/18at 23:30; Admin Dose 100 MLS/HR; Start 03/21/18 at 00:00 Gabapentin (Neurontin) 300 mg QHS PO Last administered on 03/22/18at 21:37; Admin Dose 300 MG; Start 03/21/18 at 00:00 Tramadol HCl (Ultram) 50 mg Q6H PRN PO PAIN Last administered on 03/21/18at 00:24; Admin Dose 50 MG; Start 03/21/18 at 00:00 Tamsulosin HCl (Flomax) 0.4 mg DAILY@2100 PO Last administered on 03/22/18at 21:37; Admin Dose 0.4 MG; Start 03/21/18 at 21:00 Insulin Glargine (Lantus) 50 units DAILY@0800 SC Last administered on 03/23/18at 08:13; Admin Dose 50 UNITS; Start 03/22/18 at 09:00 Miscellaneous Information (* Miscellaneous Pharmacy Order) D50 1/2 AMP + 10 UNITS... ONCE XX ; Start 03/21/18 at 22:00 Insulin Aspart (Novolog Insulin Pen) 15 unit WITH MEALS SC Last administered on 03/23/18at 12:03; Admin Dose 15 UNIT; Start 03/22/18 at 17:55 Gabapentin (Neurontin) 300 mg DAILY PO Last administered on 03/23/18at 08:09; Admin Dose 300 MG; Start 03/22/18 at 14:30 Heparin Sodium (Porcine) (Heparin (5000 Units/1ml)) 5,000 unit Q12 SC ; Start 03/22/18 at 21:00 Pantoprazole (Protonix Tab) 40 mg DAILY@06 PO Last administered on 03/23/18at 05:31; Admin Dose 40 MG; Start 03/23/18 at 06:00 Linagliptin (Tradjenta) 5 mg DAILY PO Last administered on 03/23/18at 08:09; Admin Dose 5 MG; Start 03/22/18 at 17:00 Carvedilol (Coreg) 12.5 mg BID PO ; Start 03/23/18 at 21:00 Morphine Sulfate (morphine SULFATE (PF)) 2 mg Q4H PRN IV PAIN LEVEL 7-10; S tart 03/23/18 at 20:30 PETER LOREDO MD Mar 23, 2018 17:00
--- NOTE | 2018-03-23 19:00 | NUR ---
EOSS: A/O x 4, VS stable, pt for pending CT abdomen. Pt c/o numbness on face and across chest this AM, MD aware, EKG & troponin done and is negative. No other acute events. All needs attended at this time. Will endorse plan of care to oncoming shift accordingly.
--- NOTE | 2018-03-23 19:52 | RADRPT ---
Vent Rate: 85 bpm RR Interval: 0 msec MA Interval: 146 msec QRS Duration: 88 msec QT Interval: 356 msec QTC Interval: 423 msec P-R-T Cannon: 64 - 20 - 60 degrees Normal sinus rhythm Normal ECG Electronically Signed By: Aba Pedroza [id number]
[2018-03-23] MEDS: TAMSULOSIN (SR) 0.4 MG CAP PO SCH (20:28)
[2018-03-24] VITALS (13 sets, daily range): BP systolic 114–136; BP diastolic 53–93; PULSE 69–116; RESP 17–20
[2018-03-24] MEDS: CEFTRIAXONE 1 GM/50 ML (PMX) 50 ML IVPB SCH ×2 (00:55→23:33)
[2018-03-24] MEDS: PANTOPRAZOLE (EC) 40 MG TAB PO SCH (06:02)
[2018-03-24] MEDS: morphine SULFATE/PF (2 MG/2 ML) SYG IV PRN ×4 (06:02→23:33)
[2018-03-24] MEDS: ACETAMINOPHEN 650MG/20.3ML CUP PO PRN ×3 (06:23→20:15)
--- NOTE | 2018-03-24 07:15 | NUR ---
Pt a/a/ox4, VS stable afebrile. C/o leg pain medicate with Morphine and Tylenol liquid x1. Blood sugar within normal. Abdomen pelvis CT done . Urinate well via [place] catheter . Continue care plan.
[2018-03-24] MEDS: INSULIN ASPART [NOVOLOG] 3 ML PEN SC SCH ×7 (07:53→20:55)
[2018-03-24] MEDS: INSULIN GLARGINE [LANTus] (100 UNITS/ML) SYG SC SCH (08:02)
[2018-03-24] MEDS: GABAPENTIN 300 MG CAP PO SCH ×2 (08:14→20:17)
[2018-03-24] MEDS: LINAGLIPTIN 5 MG TABLET PO SCH (08:14)
[2018-03-24] MEDS: HEPARIN 5,000 UNIT/1 ML VIAL SC SCH ×2 (08:15→20:55)
[2018-03-24] MEDS: ASPIRIN (EC) 81 MG TAB PO SCH (08:25)
--- NOTE | 2018-03-24 09:38 | CONS ---
Date/Time of Note Date/Time of Note DATE: 03/24/18 TIME: 09:37 Assessment/Plan Assessment/Plan Assessment/Plan 1. acute hyperkalemia due to RATNA- resolved 2. Hyponatremia due to hypovolemic Hyponatremia from DKA- Resolved 3. acute Kidney injury on CKD III due to ATN + prerenal azotemia- Improving 4 Acute diabeitc ketoacidosis due to UTI + ? complaince- resolved 5. 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 H/o HTN 8. H/o HL Plan: BUN/Cr 03/04.28, K normal , pt is in post obstruction diuresis, montor electrolytes and replace agressively Ryan catheter in place, Endocrine following for DM management, will follow up Result Diagram: 03/24/1831 03/24/18 0531 Results 24hrs Laboratory Tests Test 03/23/18 11:41 03/23/18 13:34 03/23/18 17:25 03/23/18 19:15 Bedside Glucose 235 H 191 211 Troponin I < 0.012 Test 03/23/18 20:34 03/24/18 05:31 03/24/18 07:52 Bedside Glucose 154 121 White Blood Count 12.5 H Red Blood Count 3.94 L Hemoglobin 10.1 L Hematocrit 30.8 L Mean Corpuscular 78.2 L Volume Mean Corpuscular 25.6 L Hemoglobin Mean Corpuscular 32.8 Hemoglobin Concent Red Cell 13.2 Distribution Width Platelet Count 398 Mean Platelet Volume 8.8 Immature 0.700 H Granulocytes % Neutrophils % 67.5 Lymphocytes % 23.0 Monocytes % 6.3 Eosinophils % 2.0 Basophils % 0.5 Nucleated Red Blood 0.0 Cells % Immature 0.090 H Granulocytes # Neutrophils # 8.4 H Lymphocytes # 2.9 Monocytes # 0.8 Eosinophils # 0.3 Basophils # 0.1 Nucleated Red Blood 0.0 Cells # Sodium Level 136 Potassium Level 4.3 Chloride Level 105 Carbon Dioxide Level 25 Anion Gap 6 Blood Urea Nitrogen 26 H Creatinine 1.28 H Est Glomerular 57 L Filtrat Rate mL/min Glucose Level 156 Calcium Level 9.0 Magnesium Level 1.9 Consultation Date/Type/Reason Admit Date/Time Mar 19, 2018 at 20:19 Initial Consult Date 03/19/2018 Type of Consult NEPHROLOGY Requesting Provider: JONAH ANDRADE Exam/Review of Systems Vital Signs Vitals Vital Signs Date Temp Pulse Resp B/P (MAP) Pulse Ox O2 O2 Flow FiO2 Time Delivery Rate 03/24/18 69 08:46 03/24/18 98.0 18 121/61 99 07:43 (81) 03/24/18 Room Air 04:10 03/23/18 1.0 17:50 03/23/18 27 04:41 Intake and Output 03/23/18 03/23/18 03/24/18 1515:00 23:00 07:00 IntakeIntake Total 1200 ml 400 ml OutputOutput Total 1850 ml 1400 ml BalanceBalance -650 ml -1000 ml Medications Medications Current Medications Ondansetron HCl (Zofran Inj) 4 mg Q6H PRN IV NAUSEA AND/OR VOMITING; Start 03/19/18 at 20:30 Metoclopramide HCl (Reglan) 10 mg Q6H PRN IV NAUSEA AND/OR VOMITING; Start 03/19/18 at 20:30 Albuterol (Proventil 0.083% (Neb)) 2.5 mg Q2H RESP THERAPY PRN NEB SHORTNESS OF BREATH; Start 03/19/18 at 20:30 Ipratropium [place] (Atrovent 0.02% (Neb)) 0.5 mg Q2H RESP THERAPY PRN NEB SHORTNESS OF BREATH; Start 03/19/18 at 20:30 Acetaminophen (Tylenol Liquid) 650 mg Q6H PRN PO PAIN LEVEL 1-3 OR FEVER Last administered on 03/24/18at 06:23; Admin Dose 650 MG; Start 03/19/18 at 20:30 Docusate Sodium (Colace) 100 mg Q12H PRN PO CONSTIPATION; Start 03/19/18 at 20:30 Bisacodyl (Dulcolax) 5 mg DAILY PRN PO CONSTIPATION; Start 03/19/18 at 20:30 Aspirin (Halfprin) 81 mg DAILY PO Last administered on 03/24/18at 08:25; Admin Dose 81 MG; Start 03/20/18 at 09:00 Insulin Aspart (Novolog Insulin Pen) NOVOLOG *MODERATE* ALGORITHM WITH MEALS BEDTIME SC Last administered on 03/23/18at 18:07; Admin Dose 4 UNIT; Start 03/20/18 at 11:30 Miscellaneous Information 1 ea NOTE XX ; Start 03/20/18 at 10:30 Glucose (Glutose) 15 gm Q15M PRN PO DECREASED GLUCOSE; Start 03/20/18 at 10:30 Glucose (Glutose) 22.5 gm Q15M PRN PO DECREASED GLUCOSE; Start 03/20/18 at 10:30 Dextrose (D50w Syringe) 25 ml Q15M PRN IV DECREASED GLUCOSE; Start 03/20/18 at 10:30 Dextrose (D50w Syringe) 50 ml Q15M PRN IV DECREASED GLUCOSE; Start 03/20/18 at 10:30 Glucagon (Glucagen) 1 mg Q15M PRN IM DECREASED GLUCOSE; Start 03/20/18 at 10:30 Glucose (Glutose) 15 gm Q15M PRN BUCCAL DECREASED GLUCOSE Last administered on 03/22/18at 21:35; Admin Dose 15 GM; Start 03/20/18 at 10:30 Ceftriaxone Sodium 50 ml @ 100 mls/hr Q24H IVPB Last administered on 03/24/18at 00:55; Admin Dose 100 MLS/HR; Start 03/21/18 at 00:00 Gabapentin (Neurontin) 300 mg QHS PO Last administered on 03/23/18at 20:28; Admin Dose 300 MG; Start 03/21/18 at 00:00 Tramadol HCl (Ultram) 50 mg Q6H PRN PO PAIN Last administered on 03/21/18at 00 :24; Admin Dose 50 MG; Start 03/21/18 at 00:00 Tamsulosin HCl (Flomax) 0.4 mg DAILY@2100 PO Last administered on 03/23/18at 20:28; Admin Dose 0.4 MG; Start 03/21/18 at 21:00 Miscellaneous Information (* Miscellaneous Pharmacy Order) D50 1/2 AMP + 10 UNITS... ONCE XX ; Start 03/21/18 at 22:00 Insulin Aspart (Novolog Insulin Pen) 15 unit WITH MEALS SC Last administered on 03/24/18at 07:57; Admin Dose 15 UNIT; Start 03/22/18 at 17:55 Gabapentin (Neurontin) 300 mg DAILY PO Last administered on 03/24/18at 08:14; Admin Dose 300 MG; Start 03/22/18 at 14:30 Heparin Sodium (Porcine) (Heparin (5000 Units/1ml)) 5,000 unit Q12 SC ; Start 03/22/18 at 21:00 Pantoprazole (Protonix Tab) 40 mg DAILY@06 PO Last administered on 03/24/18at 06:02; Admin Dose 40 MG; Start 03/23/18 at 06:00 Linagliptin (Tradjenta) 5 mg DAILY PO Last administered on 03/24/18at 08:14; Admin Dose 5 MG; Start 03/22/18 at 17:00 Carvedilol (Coreg) 12.5 mg BID PO Last administered on 03/24/18at 08:14; Admin Dose 12.5 MG; Start 03/23/18 at 21:00 Morphine Sulfate (morphine SULFATE (PF)) 2 mg Q4H PRN IV PAIN LEVEL 7-10 Last administered on 03/24/18at 06:02; Admin Dose 2 MG; Start 03/23/18 at 17:15 Insulin Glargine (Lantus) 45 units DAILY@0800 SC Last administered on 03/24/18at 08:02; Admin Dose 45 UNITS; Start 03/24/18 at 08:00 TALITA DICKENS MD Mar 24, 2018 09:37
--- NOTE | 2018-03-24 13:14 | CONS ---
Date/Time of Note Date/Time of Note DATE: 03/24/18 TIME: 13:11 Assessment/Plan Assessment/Plan Problems: (1) Diabetes mellitus type 2 in nonobese Status: Chronic Comment: Sugar control is coming along nicely. Please note that he is not intolerant of metformin even at minimal dose and as such this medicine can be used in him. I reviewed with him the various treatment options including different insulins including inhaled insulin, SGL T2 drugs, DPP 4 inhibitor drugs and GLP-1 drugs. At the present time he is doing well (2) Abnormal finding on CT scan Status: Acute Comment: Please see CT scan report. As per primary team to order a urology consultation-suggested (3) Acute prerenal azotemia Status: Acute Comment: Improved. Still somewhat dry and could do with 1 more fluid bolus (4) Acute kidney injury superimposed on CKD Status: Acute Comment: Improving nicely. (5) Pyelonephritis Status: Acute Comment: Responding to IV antibiotic therapy. Please see CT scan report (6) Hyperlipidemia associated with type 2 diabetes mellitus Status: Chronic Comment: Stable on statin therapy (7) Essential hypertension Status: Chronic Comment: Doing well. Resume GRACY inhibitor at low dose Result Diagram: 03/24/18 0531 03/24/18 0531 Results 24hrs Laboratory Tests Test 03/23/18 13:34 03/23/18 17:25 03/23/18 19:15 03/23/18 20:34 Troponin I < 0.012 Bedside Glucose 191 211 154 Test 03/24/18 05:31 03/24/18 07:52 03/24/18 12:01 White Blood Count 12.5 H Red Blood Count 3.94 L Hemoglobin 10.1 L Hematocrit 30.8 L Mean Corpuscular 78.2 L Volume Mean Corpuscular 25.6 L Hemoglobin Mean Corpuscular 32.8 Hemoglobin Concent Red Cell 13.2 Distribution Width Platelet Count 398 Mean Platelet Volume 8.8 Immature 0.700 H Granulocytes % Neutrophils % 67.5 Lymphocytes % 23.0 Monocytes % 6.3 Eosinophils % 2.0 Basophils % 0.5 Nucleated Red Blood 0.0 Cells % Immature 0.090 H Granulocytes # Neutrophils # 8.4 H Lymphocytes # 2.9 Monocytes # 0.8 Eosinophils # 0.3 Basophils # 0.1 Nucleated Red Blood 0.0 Cells # Sodium Level 136 Potassium Level 4.3 Chloride Level 105 Carbon Dioxide Level 25 Anion Gap 6 Blood Urea Nitrogen 26 H Creatinine 1.28 H Est Glomerular 57 L Filtrat Rate mL/min Glucose Level 156 Calcium Level 9.0 Magnesium Level 1.9 Bedside Glucose 121 286 H Consultation Date/Type/Reason Admit Date/Time Mar 19, 2018 at 20:19 Initial Consult Date 03/21/18 Type of Consult Endocrine Reason for Consultation Diabetes mellitus type 2 with complications of chronic kidney disease; admitted with sepsis Requesting Provider: JONAH ANDRADE 24 HR Interval Summary Free Text/Dictation Patient reports he is feeling much better. Constitutional: no complaints Detailed Summary Respiratory: no complaints Cardiovascular: no complaints Gastrointestinal: no complaints Endocrine: no complaints Exam/Review of Systems Vital Signs Vitals Vital Signs Date Temp Pulse Resp B/P (MAP) Pulse Ox O2 O2 Flow FiO2 Time Delivery Rate 03/24/18 79 12:41 03/24/18 98.0 17 132/64 99 11:22 (86) 03/24/18 Room Air 04:10 03/23/18 1.0 17:50 03/23/18 27 04:41 Intake and Output 03/23/18 03/23/18 03/24/18 1515:00 23:00 07:00 IntakeIntake Total 1200 ml 400 ml OutputOutput Total 1850 ml 1400 ml BalanceBalance -650 ml -1000 ml Exam Constitutional: alert, oriented Respiratory: clear to auscultation, normal air movement Cardiovascular: regular rate and rhythm, nl pulses Gastrointestinal: soft, nl liver, spleen, non-tender Medications Medications Current Medications Ondansetron HCl (Zofran Inj) 4 mg Q6H PRN IV NAUSEA AND/OR VOMITING; Start 03/19/18 at 20:30 Metoclopramide HCl (Reglan) 10 mg Q6H PRN IV NAUSEA AND/OR VOMITING; Start 03/19/18 at 20:30 Albuterol (Proventil 0.083% (Neb)) 2.5 mg Q2H RESP THERAPY PRN NEB SHORTNESS OF BREATH; Start 03/19/18 at 20:30 Ipratropium [place] (Atrovent 0.02% (Neb)) 0.5 mg Q2H RESP THERAPY PRN NEB SHORTNESS OF BREATH; Start 03/19/18 at 20:30 Acetaminophen (Tylenol Liquid) 650 mg Q6H PRN PO PAIN LEVEL 1-3 OR FEVER Last administered on 03/24/18at 12:11; Admin Dose 650 MG; Start 03/19/18 at 20:30 Docusate Sodium (Colace) 100 mg Q12H PRN PO CONSTIPATION; Start 03/19/18 at 20:30 Bisacodyl (Dulcolax) 5 mg DAILY PRN PO CONSTIPATION; Start 03/19/18 at 20:30 Aspirin (Halfprin) 81 mg DAILY PO Last administered on 03/24/18at 08:25; Admin Dose 81 MG; Start 03/20/18 at 09:00 Insulin Aspart (Novolog Insulin Pen) NOVOLOG *MODERATE* ALGORITHM WITH MEALS BEDTIME SC Last administered on 03/24/18at 12:04; Admin Dose 8 UNIT; Start 03/20/18 at 11:30 Miscellaneous Information 1 ea NOTE XX ; Start 03/20/18 at 10:30 Glucose (Glutose) 15 gm Q15M PRN PO DECREASED GLUCOSE; Start 03/20/18 at 10:30 Glucose (Glutose) 22.5 gm Q15M PRN PO DECREASED GLUCOSE; Start 03/20/18 at 10:30 Dextrose (D50w Syringe) 25 ml Q15M PRN IV DECREASED GLUCOSE; Start 03/20/18 at 10:30 Dextrose (D50w Syringe) 50 ml Q15M PRN IV DECREASED GLUCOSE; Start 03/20/18 at 10:30 Glucagon (Glucagen) 1 mg Q15M PRN IM DECREASED GLUCOSE; Start 03/20/18 at 10:30 Glucose (Glutose) 15 gm Q15M PRN BUCCAL DECREASED GLUCOSE Last administered on 03/22/18at 21:35; Admin Dose 15 GM; Start 03/20/18 at 10:30 Ceftriaxone Sodium 50 ml @ 100 mls/hr Q24H IVPB Last administered on 03/24/18at 00:55; Admin Dose 100 MLS/HR; Start 03/21/18 at 00:00 Gabapentin (Neurontin) 300 mg QHS PO Last administered on 03/23/18at 20:28; Admin Dose 300 MG; Start 03/21/18 at 00:00 Tramadol HCl (Ultram) 50 mg Q6H PRN PO PAIN Last administered on 03/21/18at 00:24; Admin Dose 50 MG; Start 03/21/18 at 00:00 Tamsulosin HCl (Flomax) 0.4 mg DAILY@2100 PO Last administered on 03/23/18at 20:28; Admin Dose 0.4 MG; Start 03/21/18 at 21:00 Miscellaneous Information (* Miscellaneous Pharmacy Order) D50 1/2 AMP + 10 UNITS... ONCE XX ; Start 03/21/18 at 22:00 Insulin Aspart (Novolog Insulin Pen) 15 unit WITH MEALS SC Last administered on 03/24/18at 12:05; Admin Dose 15 UNIT; Start 03/22/18 at 17:55 Gabapentin (Neurontin) 300 mg DAILY PO Last administered on 03/24/18 08:14; Admin Dose 300 MG; Start 03/22/18 at 14:30 Heparin Sodium (Porcine) (Heparin (5000 Units/1ml)) 5,000 unit Q12 SC ; Start 03/22/18 at 21:00 Pantoprazole (Protonix Tab) 40 mg DAILY@06 PO Last administered on 03/24/18at 06:02; Admin Dose 40 MG; Start 03/23/18 at 06:00 Linagliptin (Tradjenta) 5 mg DAILY PO Last administered on 03/24/18at 08:14; Admin Dose 5 MG; Start 03/22/18 at 17:00 Carvedilol (Coreg) 12.5 mg BID PO Last administered on 03/24/18 08:14; Admin Dose 12.5 MG; Start 03/23/18 at 21:00 Morphine Sulfate (morphine SULFATE (PF)) 2 mg Q4H PRN IV PAIN LEVEL 7-10 Last administered on 03/24/18at 12:11; Admin Dose 2 MG; Start 03/23/18 at 17:15 Insulin Glargine (Lantus) 45 units DAILY@0800 SC Last administered on 03/24/18 08:02; Admin Dose 45 UNITS; Start 03/24/18 at 08:00 JEAN TRAYLOR MD Mar 24, 2018 13:14
[2018-03-24] MEDS ORDERED: LACTATED RINGER'S 500 ML IV ONE (13:30)
[2018-03-24] MEDS: FINASTERIDE 5 MG TAB PO SCH (14:34)
[2018-03-24] MEDS: LISINOPRIL 10 MG TAB PO SCH (14:35)
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
--- NOTE | 2018-03-24 19:57 | CONS ---
Date/Time of Note Date/Time of Note DATE: 03/24/18 TIME: 19:45 Assessment/Plan Assessment/Plan Assessment/Plan 63-year-old male with a history of diabetes mellitus ,chronic kidney disease, hypertension and degenerative disc disease came to the emergency department with multiple complaints. Patient reports that he has been having dysuria. He states the urine smells foul. Patient also reports that his diabetes has been poorly controlled. He reports that he has been compliant with his insulin regimen of Lantus 60 units daily and NovoLog 25-35 units at mealtime. However he reports that despite this his blood sugars are running from the 300s-400s. He reports chronic back pain. Renal ultrasound done on admission showed urinary retention with the bladder distended. Patient underwent a CT scan of the abdomen and pelvis after that and that showed : 1. No gross renal/ureteric calculi. No evidence of obstructive uropathy. There is nonspecific bilateral perinephric fat stranding. 2. MARKED IRREGULAR THICKENING OF THE DURAN OF THE BLADDER WITH ADJACENT FATTY STRANDING. ALTHOUGH FINDINGS COULD REPRESENT SEVERE CYSTITIS, CANNOT EXCLUDE POSSIBILITY OF MALIGNANCY. RECOMMEND DIRECT VISUALIZATION. SEVERAL PELVIC NONSPECIFIC LYMPH NODES AND INGUINAL LYMPH NODES, WHICH MAY BE REACTIVE. 3. HETEROGENEOUS APPEARANCE OF THE PROSTATE GLAND WHICH IS ENLARGED. RECOMMEND CORRELATION WITH PSA LEVELS. THERE ARE SEVERAL LOW ATTENUATION AREAS WITHIN THE PROSTATE AND UNDERLYING PROSTATE INFECTION IS ALSO WITHIN THE DIFFERENTIAL. RECOMMEND FOLLOW-UP CONTRAST-ENHANCED CT SCAN OF THE PELVIS. 4. SEVERAL PERIRECTAL LYMPH NODES SUBTLE THICKENING OF THE DURAN OF THE RECTUM. RECOMMEND FOLLOW-UP COLONOSCOPY TO EXCLUDE THE POSSIBILITY OF RECTAL MALIGNANCY. 5. No evidence of bowel obstruction. Stool filled loops of large bowel suggestive of constipation. The appendix is within normal limits. 6. Fat-containing umbilical hernia . At the present time the patient was very nauseated and throwing up. He was not able to give me any history because of his present condition. On the exam his prostate is large, boggy and tender. Urine culture did show Proteus mirabilis URINE CULTURE Final Organism 1 PROTEUS MIRABILIS COLONY COUNT >100,000 CFU/ml P. MIRAB M.I.C. RX --------- --- AMPICILLIN >=32 R CEFOTAXIME S CIPROFLOXACIN <=0.25 S GENTAMICIN >=16 R LEVOFLOXACIN <=0.12 S NITROFURANTOIN 128 R TOBRAMYCIN 4 S TRIMETHOPRIM/SULFAMETHOXAZOLE >=320 R Impression: the patient does have urinary tract infection and probably bilateral pyelonephritis. His prostate is large. We will treat the infection and put him on tamsulosin and finasteride. Further recommendation will be based on his clinical condition Result Diagram: 03/24/18 0531 03/24/18 0531 Results 24hrs Laboratory Tests Test 03/23/18 20:34 03/24/18 05:31 03/24/18 07:52 03/24/18 12:01 Bedside Glucose 154 121 286 H White Blood Count 12.5 H Red Blood Count 3.94 L Hemoglobin 10.1 L Hematocrit 30.8 L Mean Corpuscular 78.2 L Volume Mean Corpuscular 25.6 L Hemoglobin Mean Corpuscular 32.8 Hemoglobin Concent Red Cell 13.2 Distribution Width Platelet Count 398 Mean Platelet Volume 8.8 Immature 0.700 H Granulocytes % Neutrophils % 67.5 Lymphocytes % 23.0 Monocytes % 6.3 Eosinophils % 2.0 Basophils % 0.5 Nucleated Red Blood 0.0 Cells % Immature 0.090 H Granulocytes # Neutrophils # 8.4 H Lymphocytes # 2.9 Monocytes # 0.8 Eosinophils # 0.3 Basophils # 0.1 Nucleated Red Blood 0.0 Cells # Sodium Level 136 Potassium Level 4.3 Chloride Level 105 Carbon Dioxide Level 25 Anion Gap 6 Blood Urea Nitrogen 26 H Creatinine 1.28 H Est Glomerular 57 L Filtrat Rate mL/min Glucose Level 156 Calcium Level 9.0 Magnesium Level 1.9 Test 03/24/18 17:41 Bedside Glucose 255 H Consultation Date/Type/Reason Admit Date/Time Mar 19, 2018 at 20:19 Date of Consultation: Mar 24, 2018 Type of Consult Urology Reason for Consultation Urinary retention Requesting Provider: CORWIN EMANUEL Constitutional: chills Eyes: no complaints ENT: no complaints Respiratory: No shortness of breath Cardiovascular: No chest pain Gastrointestinal: nausea, vomiting Genitourinary: dysuria Musculoskeletal: no complaints Skin: no complaints Neurologic: no complaints Lymphatic: no complaints Psychological: no complaints Immunologic: no complaints Past Medical History Medical History: diabetes, hypertension, renal disease Medications Current Medications Ondansetron HCl (Zofran Inj) 4 mg Q6H PRN IV NAUSEA AND/OR VOMITING; Start 03/19/18 at 20:30 Metoclopramide HCl (Reglan) 10 mg Q6H PRN IV NAUSEA AND/OR VOMITING; Start 03/19/18 at 20:30 Albuterol (Proventil 0.083% (Neb)) 2.5 mg Q2H RESP THERAPY PRN NEB SHORTNESS OF BREATH; Start 03/19/18 at 20:30 Ipratropium [place] (Atrovent 0.02% (Neb)) 0.5 mg Q2H RESP THERAPY PRN NEB SHORTNESS OF BREATH; Start 03/19/18 at 20:30 Acetaminophen (Tylenol Liquid) 650 mg Q6H PRN PO PAIN LEVEL 1-3 OR FEVER Last administered on 03/24/18at 12:11; Admin Dose 650 MG; Start 03/19/18 at 20:30 Docusate Sodium (Colace) 100 mg Q12H PRN PO CONSTIPATION; Start 03/19/18 at 20:30 Bisacodyl (Dulcolax) 5 mg DAILY PRN PO CONSTIPATION; Start 03/19/18 at 20:30 Aspirin (Halfprin) 81 mg DAILY PO Last administered on 03/24/18at 08:25; Admin Dose 81 MG; Start 03/20/18 at 09:00 Insulin Aspart (Novolog Insulin Pen) NOVOLOG *MODERATE* ALGORITHM WITH MEALS BEDTIME SC Last administered on 03/24/18at 17:44; Admin Dose 6 UNIT; Start 03/20/18 at 11:30 Miscellaneous Information 1 ea NOTE XX ; Start 03/20/18 at 10:30 Glucose (Glutose) 15 gm Q15M PRN PO DECREASED GLUCOSE; Start 03/20/18 at 10:30 Glucose (Glutose) 22.5 gm Q15M PRN PO DECREASED GLUCOSE; Start 03/20/18 at 10:30 Dextrose (D50w Syringe) 25 ml Q15M PRN IV DECREASED GLUCOSE; Start 03/20/18 at 10:30 Dextrose (D50w Syringe) 50 ml Q15M PRN IV DECREASED GLUCOSE; Start 03/20/18 at 10:30 Glucagon (Glucagen) 1 mg Q15M PRN IM DECREASED GLUCOSE; Start 03/20/18 at 10:30 Glucose (Glutose) 15 gm Q15M PRN BUCCAL DECREASED GLUCOSE Last administered on 03/22/18at 21:35; Admin Dose 15 GM; Start 03/20/18 at 10:30 Ceftriaxone Sodium 50 ml @ 100 mls/hr Q24H IVPB Last administered on 03/24/18 00:55; Admin Dose 100 MLS/HR; Start 03/21/18 at 00:00; Stop 03/30/18 at 23:59 Gabapentin (Neurontin) 300 mg QHS PO Last administered on 03/23/18 20:28; Admin Dose 300 MG; Start 03/21/18 at 00:00 Tramadol HCl (Ultram) 50 mg Q6H PRN PO PAIN Last administered on 03/21/18 00:24; Admin Dose 50 MG; Start 03/21/18 at 00:00 Tamsulosin HCl (Flomax) 0.4 mg DAILY@2100 PO Last administered on 03/23/18 20:28; Admin Dose 0.4 MG; Start 03/21/18 at 21:00 Miscellaneous Information (* Miscellaneous Pharmacy Order) D50 1/2 AMP + 10 UNITS... ONCE XX ; Start 03/21/18 at 22:00 Insulin Aspart (Novolog Insulin Pen) 15 unit WITH MEALS SC Last administered on 03/24/18 17:48; Admin Dose 15 UNIT; Start 03/22/18 at 17:55 Gabapentin (Neurontin) 300 mg DAILY PO Last administered on 03/24/18 08:14; Admin Dose 300 MG; Start 03/22/18 at 14:30 Heparin Sodium (Porcine) (Heparin (5000 Units/1ml)) 5,000 unit Q12 SC ; Start 03/22/18 at 21:00 Pantoprazole (Protonix Tab) 40 mg DAILY@06 PO Last administered on 03/24/18at 06:02; Admin Dose 40 MG; Start 03/23/18 at 06:00 Linagliptin (Tradjenta) 5 mg DAILY PO Last administered on 03/24/18 08:14; Admin Dose 5 MG; Start 03/22/18 at 17:00 Carvedilol (Coreg) 12.5 mg BID PO Last administered on 03/24/18 08:14; Admin Dose 12.5 MG; Start 03/23/18 at 21:00 Morphine Sulfate (morphine SULFATE (PF)) 2 mg Q4H PRN IV PAIN LEVEL 7-10 Last administered on 03/24/18 18:26; Admin Dose 2 MG; Start 03/23/18 at 17:15 Insulin Glargine (Lantus) 45 units DAILY@0800 SC Last administered on 03/24/18at 08:02; Admin Dose 45 UNITS; Start 03/24/18 at 08:00 Finasteride (Proscar) 5 mg DAILY PO Last administered on 03/24/18at 14:34; Admin Dose 5 MG; Start 03/24/18 at 13:30 Lisinopril (Zestril) 10 mg DAILY PO Last administered on 03/24/18at 14:35; Admin Dose 10 MG; Start 03/24/18 at 13:30 Allergies: Coded Allergies: metformin (Unverified Allergy, Intermediate, Diarrhea, 03/24/18) codeine (Unverified Allergy, Unknown, 03/24/18) Uncoded Allergies: ANTIBIOTICS (Allergy, Severe, 06/04/17) unknown antibiotic ANTIBIOTICS UNKNOWN (Allergy, Unknown, 03/24/18) PATIENT SAYS HIS ALLERGIC TO SOME OF THE ANTIBIOTICS Past Surgical History Past Surgical Hx: other (back surgery, exploratory laparotomy.) Social History Alcohol Use: none Smoking Status: Never smoker Drug Use: none Exam/Review of Systems Vital Signs Vitals Vital Signs Date Temp Pulse Resp B/P (MAP) Pulse Ox O2 O2 Flow FiO2 Time Delivery Rate 03/24/18 79 16:38 03/24/18 98.1 17 136/68 98 15:23 (90) 03/24/18 Room Air 04:10 03/23/18 1.0 17:50 03/23/18 27 04:41 Intake and Output 03/23/18 03/23/18 03/24/18 1515:00 23:00 07:00 IntakeIntake Total 1200 ml 400 ml OutputOutput Total 1850 ml 1400 ml BalanceBalance -650 ml -1000 ml Exam Constitutional: alert Psych: no complaints Head: normocephalic Eyes: nl conjunctiva ENMT: nl external ears & nose Neck: supple Respiratory: normal air movement; No wheezing Cardiovascular: No jugular venous distention (JVD) Gastrointestinal: soft, surgical scars Genitourinary - Male: nl penis, nl scrotum, other (Rectal exam: Prostate is large soft and tender) Musculoskeletal: nl extremities to inspection Extremities: No calf tenderness Neurological: nl mental status Skin: nl turgor Medications Medications Current Medications Ondansetron HCl (Zofran Inj) 4 mg Q6H PRN IV NAUSEA AND/OR VOMITING; Start 03/19/18 at 20:30 Metoclopramide HCl (Reglan) 10 mg Q6H PRN IV NAUSEA AND/OR VOMITING; Start 03/19/18 at 20:30 Albuterol (Proventil 0.083% (Neb)) 2.5 mg Q2H RESP THERAPY PRN NEB SHORTNESS OF BREATH; Start 03/19/18 at 20:30 Ipratropium [place] (Atrovent 0.02% (Neb)) 0.5 mg Q2H RESP THERAPY PRN NEB SHORTNESS OF BREATH; Start 03/19/18 at 20:30 Acetaminophen (Tylenol Liquid) 650 mg Q6H PRN PO PAIN LEVEL 1-3 OR FEVER Last administered on 03/24/18at 12:11; Admin Dose 650 MG; Start 03/19/18 at 20:30 Docusate Sodium (Colace) 100 mg Q12H PRN PO CONSTIPATION; Start 03/19/18 at 20:30 Bisacodyl (Dulcolax) 5 mg DAILY PRN PO CONSTIPATION; Start 03/19/18 at 20:30 Aspirin (Halfprin) 81 mg DAILY PO Last administered on 03/24/18at 08:25; Admin Dose 81 MG; Start 03/20/18 at 09:00 Insulin Aspart (Novolog Insulin Pen) NOVOLOG *MODERATE* ALGORITHM WITH MEALS BEDTIME SC Last administered on 03/24/18at 17:44; Admin Dose 6 UNIT; Start 03/20/18 at 11:30 Miscellaneous Information 1 ea NOTE XX ; Start 03/20/18 at 10:30 Glucose (Glutose) 15 gm Q15M PRN PO DECREASED GLUCOSE; Start 03/20/18 at 10:30 Glucose (Glutose) 22.5 gm Q15M PRN PO DECREASED GLUCOSE; Start 03/20/18 at 10:30 Dextrose (D50w Syringe) 25 ml Q15M PRN IV DECREASED GLUCOSE; Start 03/20/18 at 10:30 Dextrose (D50w Syringe) 50 ml Q15M PRN IV DECREASED GLUCOSE; Start 03/20/18 at 10:30 Glucagon (Glucagen) 1 mg Q15M PRN IM DECREASED GLUCOSE; Start 03/20/18 at 10:30 Glucose (Glutose) 15 gm Q15M PRN BUCCAL DECREASED GLUCOSE Last administered on 03/22/18 21:35; Admin Dose 15 GM; Start 03/20/18 at 10:30 Ceftriaxone Sodium 50 ml @ 100 mls/hr Q24H IVPB Last administered on 03/24/18 00:55; Admin Dose 100 MLS/HR; Start 03/21/18 at 00:00; Stop 03/30/18 at 23:59 Gabapentin (Neurontin) 300 mg QHS PO Last administered on 03/23/18 20:28; Admin Dose 300 MG; Start 03/21/18 at 00:00 Tramadol HCl (Ultram) 50 mg Q6H PRN PO PAIN Last administered on 03/21/18 00:24; Admin Dose 50 MG; Start 03/21/18 at 00:00 Tamsulosin HCl (Flomax) 0.4 mg DAILY@2100 PO Last administered on 03/23/18 20:28; Admin Dose 0.4 MG; Start 03/21/18 at 21:00 Miscellaneous Information (* Miscellaneous Pharmacy Order) D50 1/2 AMP + 10 UNITS... ONCE XX ; Start 03/21/18 at 22:00 Insulin Aspart (Novolog Insulin Pen) 15 unit WITH MEALS SC Last administered on 03/24/18 17:48; Admin Dose 15 UNIT; Start 03/22/18 at 17:55 Gabapentin (Neurontin) 300 mg DAILY PO Last administered on 03/24/18 08:14; Admin Dose 300 MG; Start 03/22/18 at 14:30 Heparin Sodium (Porcine) (Heparin (5000 Units/1ml)) 5,000 unit Q12 SC ; Start 03/22/18 at 21:00 Pantoprazole (Protonix Tab) 40 mg DAILY@06 PO Last administered on 03/24/18 06:02; Admin Dose 40 MG; Start 03/23/18 at 06:00 Linagliptin (Tradjenta) 5 mg DAILY PO Last administered on 03/24/18 08:14; Admin Dose 5 MG; Start 03/22/18 at 17:00 Carvedilol (Coreg) 12.5 mg BID PO Last administered on 03/24/18 08:14; Admin Dose 12.5 MG; Start 03/23/18 at 21:00 Morphine Sulfate (morphine SULFATE (PF)) 2 mg Q4H PRN IV PAIN LEVEL 7-10 Last administered on 03/24/18at 18:26; Admin Dose 2 MG; Start 03/23/18 at 17:15 Insulin Glargine (Lantus) 45 units DAILY@0800 SC Last administered on 03/24/18at 08:02; Admin Dose 45 UNITS; Start 03/24/18 at 08:00 Finasteride (Proscar) 5 mg DAILY PO Last administered on 03/24/18at 14:34; Admin Dose 5 MG; Start 03/24/18 at 13:30 Lisinopril (Zestril) 10 mg DAILY PO Last administered on 03/24/18at 14:35; Admin Dose 10 MG; Start 03/24/18 at 13:[address] scan of the abdomen and pelvis: 1. No gross renal/ureteric calculi. No evidence of obstructive uropathy. There is nonspecific bilateral perinephric fat stranding. 2. MARKED IRREGULAR THICKENING OF THE DURAN OF THE BLADDER WITH ADJACENT FATTY STRANDING. ALTHOUGH FINDINGS COULD REPRESENT SEVERE CYSTITIS, CANNOT EXCLUDE POSSIBILITY OF MALIGNANCY. RECOMMEND DIRECT VISUALIZATION. SEVERAL PELVIC NONSPECIFIC LYMPH NODES AND INGUINAL LYMPH NODES, WHICH MAY BE REACTIVE. 3. HETEROGENEOUS APPEARANCE OF THE PROSTATE GLAND WHICH IS ENLARGED. RECOMMEND CORRELATION WITH PSA LEVELS. THERE ARE SEVERAL LOW ATTENUATION AREAS WITHIN THE PROSTATE AND UNDERLYING PROSTATE INFECTION IS ALSO WITHIN THE DIFFERENTIAL. RANGEL MMEND FOLLOW-UP CONTRAST-ENHANCED CT SCAN OF THE PELVIS. 4. SEVERAL PERIRECTAL LYMPH NODES SUBTLE THICKENING OF THE DURAN OF THE RECTUM. RECOMMEND FOLLOW-UP COLONOSCOPY TO EXCLUDE THE POSSIBILITY OF RECTAL MALIGNANCY. 5. No evidence of bowel obstruction. Stool filled loops of large bowel suggestive of constipation. The appendix is within normal limits. 6. Fat-containing umbilical hernia . Renal ultrasound prior to the CT scan on admission did show urinary retention. AMI BURTON MD Mar 24, 2018 19:56
[2018-03-24] MEDS: ONDANSETRON 4 MG INJ IV PRN (20:14)
[2018-03-24] MEDS: TAMSULOSIN (SR) 0.4 MG CAP PO SCH (20:23)
[2018-03-25] VITALS (12 sets, daily range): BP systolic 101–122; BP diastolic 56–60; PULSE 56–75; RESP 18–20
[2018-03-25] MEDS: PANTOPRAZOLE (EC) 40 MG TAB PO SCH (06:11)
--- NOTE | 2018-03-25 06:40 | NUR ---
EOSS: SEEN LAST NIGHT BY DR. MARSH. START OF THE SHIFT PATIENT VOMITED X1 AND WAS RUNNING A TEMP TMAX OF 101.1F, INFORMED PMD WITH ORDER TO GIVE TYLENOL. COOLING MEASURES RENDERED. ALL NEEDS ATTENDED TO. TEMPERATURE ALREADY AT 98.1F. COMPLAINED OF PAIN LAST NIGHT, MEDIATED WITH PRN MED FOR PAIN , AFFORDED RELIEF.
[2018-03-25] MEDS: INSULIN ASPART [NOVOLOG] 3 ML PEN SC SCH ×6 (07:44→20:26)
[2018-03-25] MEDS: INSULIN GLARGINE [LANTus] (100 UNITS/ML) SYG SC SCH (07:58)
[2018-03-25] MEDS: FINASTERIDE 5 MG TAB PO SCH (08:51)
[2018-03-25] MEDS: GABAPENTIN 300 MG CAP PO SCH ×2 (08:51→20:14)
[2018-03-25] MEDS: LINAGLIPTIN 5 MG TABLET PO SCH (08:52)
[2018-03-25] MEDS: ASPIRIN (EC) 81 MG TAB PO SCH (08:52)
[2018-03-25] MEDS: LISINOPRIL 10 MG TAB PO SCH (08:53)
[2018-03-25] MEDS: HEPARIN 5,000 UNIT/1 ML VIAL SC SCH ×2 (08:53→20:26)
--- NOTE | 2018-03-25 10:00 | NUR ---
Diabetes Education Referral: Thank you for the referral. R: Upon discharge consider continuing Linagliptin or a renal-adjusted dose of Januvia. HbA1c 11.9%; 74kg; BMI 27; Cr 1.47; Admitting serum glucose 693 mg/dl Pt is known to me from a previous visit in 11/2016. At that time pt was taking pills and insulin. Pt stated he is only taking insulin now, Lantus 45-50 units and NovoLog 25-30 units before meals. Pt stated he routinely snacks between meals (snacks include crackers, fruit, nuts, and peanut M&Ms). Pt stated he gets tired of taking care of his diabetes, he states he routinely goes a couple days/weeks without taking his insulin. Reviewed pt's HbA1c and the importance of managing his BG. Reviewed with the patient if his insulin has ever become frozen or gotten too hot, pt stated he gets his medications through a mail-in pharmacy and pt stated he routinely finds his medication on his porch in the sun. Pt stated he needs to change his PCP and would like to find an fruit and vegetable packer. Reviewed some possible options that will assist in adherence and burn out (pump, Trulicity, Freestyle Janna); encouraged pt to find an fruit and vegetable packer to assist with these options. Pt also stated his has been in detention for the last few months and her next hearing is April 06. Pt stated all his extra funds are going towards her package handler. Pt stated she is his only family and he is very stressed. PT stated he doesn't eat well or like to cook when she is not around, pt stated he regularly eats [employer] and frozen meals. Provided emotional support and discussed easy modifications to his favorite food to make that lower carbohydrate content. Pt verbalized understanding. All questions answered.
--- NOTE | 2018-03-25 12:31 | CONS ---
Date/Time of Note Date/Time of Note DATE: 03/25/18 TIME: 12:31 Assessment/Plan Assessment/Plan Assessment/Plan 1. acute hyperkalemia due to RATNA- resolved 2. Hyponatremia due to hypovolemic Hyponatremia from DKA- Resolved 3. acute Kidney injury on CKD III due to ATN + prerenal azotemia- Improving 4 Acute diabeitc ketoacidosis due to UTI + ? complaince- resolved 5. 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 H/o HTN 8. H/o HL Plan: BUN/Cr 1.47, K normal , pt is in post obstruction diuresis, monitor electrolytes and replace aggressively Hoyos catheter in place, Endocrine following for DM management, will follow up Result Diagram: 03/25/18 0553 03/25/18 0553 Results 24hrs Laboratory Tests Test 03/24/18 17:41 03/24/18 20:25 03/25/18 05:53 03/25/18 07:43 Bedside Glucose 255 H 87 105 White Blood Count 14.5 H Red Blood Count 3.68 L Hemoglobin 9.4 L Hematocrit 29.2 L Mean Corpuscular 79.3 L Volume Mean Corpuscular 25.5 L Hemoglobin Mean Corpuscular 32.2 Hemoglobin Concent Red Cell 13.4 Distribution Width Platelet Count 342 Mean Platelet Volume 8.6 Immature 1.000 H Granulocytes % Neutrophils % 74.2 Lymphocytes % 17.5 Monocytes % 5.6 Eosinophils % 1.3 Basophils % 0.4 Nucleated Red Blood 0.0 Cells % Immature 0.140 H Granulocytes # Neutrophils # 10.8 H Lymphocytes # 2.5 Monocytes # 0.8 Eosinophils # 0.2 Basophils # 0.1 Nucleated Red Blood 0.0 Cells # Sodium Level 136 Potassium Level 4.3 Chloride Level 101 Carbon Dioxide Level 26 Anion Gap 9 Blood Urea Nitrogen 26 H Creatinine 1.47 H Est Glomerular 48 L Filtrat Rate mL/min Glucose Level 134 Calcium Level 8.6 Prostate Specific 2.3 Antigen Test 03/25/18 11:36 Bedside Glucose 151 Consultation Date/Type/Reason Admit Date/Time Mar 19, 2018 at 20:19 Initial Consult Date 03/19/2018 Type of Consult NEPHROLOGY Requesting Provider: CORWIN EMANUEL Exam/Review of Systems Vital Signs Vitals Vital Signs Date Temp Pulse Resp B/P (MAP) Pulse Ox O2 O2 Flow FiO2 Time Delivery Rate 03/25/18 60 12:27 03/25/18 98.0 20 119/56 99 Room Air 11:50 (77) 03/23/18 1.0 17:50 03/23/18 27 04:41 Intake and Output 03/24/18 03/24/18 03/25/18 1414:59 22:59 06:59 IntakeIntake Total 360 ml 590 ml 250 ml OutputOutput Total 1200 ml 1000 ml BalanceBalance 360 ml -610 ml -750 ml Exam Constitutional: alert, oriented Respiratory: clear to auscultation Cardiovascular: regular rate and rhythm Gastrointestinal: soft; No distended, + hoyos catheter Musculoskeletal: nl extremities to in Medications Medications Current Medications Ondansetron HCl (Zofran Inj) 4 mg Q6H PRN IV NAUSEA AND/OR VOMITING Last administered on 03/24/18at 20:14; Admin Dose 4 MG; Start 03/19/18 at 20:30 Metoclopramide HCl (Reglan) 10 mg Q6H PRN IV NAUSEA AND/OR VOMITING; Start 03/19/18 at 20:30 Albuterol (Proventil 0.083% (Neb)) 2.5 mg Q2H RESP THERAPY PRN NEB SHORTNESS OF BREATH; Start 03/19/18 at 20:30 Ipratropium [place] (Atrovent 0.02% (Neb)) 0.5 mg Q2H RESP THERAPY PRN NEB SHORTNESS OF BREATH; Start 03/19/18 at 20:30 Acetaminophen (Tylenol Liquid) 650 mg Q6H PRN PO PAIN LEVEL 1-3 OR FEVER Last administered on 03/24/18at 20:15; Admin Dose 650 MG; Start 03/19/18 at 20:30 Docusate Sodium (Colace) 100 mg Q12H PRN PO CONSTIPATION; Start 03/19/18 at 20:30 Bisacodyl (Dulcolax) 5 mg DAILY PRN PO CONSTIPATION; Start 03/19/18 at 20:30 Aspirin (Halfprin) 81 mg DAILY PO Last administered on 03/25/18at 08:52; Admin Dose 81 MG; Start 03/20/18 at 09:00 Insulin Aspart (Novolog Insulin Pen) NOVOLOG *MODERATE* ALGORITHM WITH MEALS BEDTIME SC Last administered on 03/25/18at 11:48; Admin Dose 2 UNIT; Start 03/20/18 at 11:30 Miscellaneous Information 1 ea NOTE XX ; Start 03/20/18 at 10:30 Glucose (Glutose) 15 gm Q15M PRN PO DECREASED GLUCOSE; Start 03/20/18 at 10:30 Glucose (Glutose) 22.5 gm Q15M PRN PO DECREASED GLUCOSE; Start 03/20/18 at 10:30 Dextrose (D50w Syringe) 25 ml Q15M PRN IV DECREASED GLUCOSE; Start 03/20/18 at 10:30 Dextrose (D50w Syringe) 50 ml Q15M PRN IV DECREASED GLUCOSE; Start 03/20/18 at 10:30 Glucagon (Glucagen) 1 mg Q15M PRN IM DECREASED GLUCOSE; Start 03/20/18 at 10:30 Glucose (Glutose) 15 gm Q15M PRN BUCCAL DECREASED GLUCOSE Last administered on 03/22/18at 21:35; Admin Dose 15 GM; Start 03/20/18 at 10:30 Ceftriaxone Sodium 50 ml @ 100 mls/hr Q24H IVPB Last administered on 03/24/18at 23:33; Admin Dose 100 MLS/HR; Start 03/21/18 at 00:00; Stop 03/30/18 at 23:59 Gabapentin (Neurontin) 300 mg QHS PO Last administered on 03/24/18at 20:17; Admin Dose 300 MG; Start 03/21/18 at 00:00 Tramadol HCl (Ultram) 50 mg Q6H PRN PO PAIN Last administered on 03/21/18at 00:24; Admin Dose 50 MG; Start 03/21/18 at 00:00 Tamsulosin HCl (Flomax) 0.4 mg DAILY@2100 PO Last administered on 03/24/18at 20:23; Admin Dose 0.4 MG; Start 03/21/18 at 21:00 Miscellaneous Information (* Miscellaneous Pharmacy Order) D50 1/2 AMP + 10 U NITS... ONCE XX ; Start 03/21/18 at 22:00 Insulin Aspart (Novolog Insulin Pen) 15 unit WITH MEALS SC Last administered on 03/25/18at 11:48; Admin Dose 15 UNIT; Start 03/22/18 at 17:55 Gabapentin (Neurontin) 300 mg DAILY PO Last administered on 03/25/18 08:51; Admin Dose 300 MG; Start 03/22/18 at 14:30 Heparin Sodium (Porcine) (Heparin (5000 Units/1ml)) 5,000 unit Q12 SC ; Start 03/22/18 at 21:00 Pantoprazole (Protonix Tab) 40 mg DAILY@06 PO Last administered on 03/25/18at 06:11; Admin Dose 40 MG; Start 03/23/18 at 06:00 Linagliptin (Tradjenta) 5 mg DAILY PO Last administered on 03/25/18at 08:52; Admin Dose 5 MG; Start 03/22/18 at 17:00 Carvedilol (Coreg) 12.5 mg BID PO Last administered on 03/25/18 08:53; Admin Dose 12.5 MG; Start 03/23/18 at 21:00 Morphine Sulfate (morphine SULFATE (PF)) 2 mg Q4H PRN IV PAIN LEVEL 7-10 Last administered on 03/24/18at 23:33; Admin Dose 2 MG; Start 03/23/18 at 17:15 Insulin Glargine (Lantus) 45 units DAILY@0800 SC Last administered on 03/25/18at 07:58; Admin Dose 45 UNITS; Start 03/24/18 at 08:00 Finasteride (Proscar) 5 mg DAILY PO Last administered on 03/25/18 08:51; Admin Dose 5 MG; Start 03/24/18 at 13:30 Lisinopril (Zestril) 10 mg DAILY PO Last administered on 03/25/18 08:53; Admin Dose 10 MG; Start 03/24/18 at 13:30 TALITA DICKENS MD Mar 25, 2018 12:31
--- NOTE | 2018-03-25 13:23 | CONS ---
Date/Time of Note Date/Time of Note DATE: 03/25/18 TIME: 13:05 Assessment/Plan Assessment/Plan Problems: (1) Essential hypertension Status: Chronic Comment: Adequate control at the present time. Tolerating the extra medications without issue. (2) Pyelonephritis Status: Acute Comment: As per urology evaluation. He still has Ryan catheter in. He is on finasteride and alpha blockade therapy (3) Diabetes mellitus type 2 in nonobese Status: Chronic Comment: Adequate control. He would like to use less insulin so I am going to stop the mealtime insulin going to an oral and adjust the basal insulin dosing (4) Acute kidney injury superimposed on CKD Status: Acute Comment: Stable and at baseline (5) Hyperlipidemia associated with type 2 diabetes mellitus Status: Chronic Comment: Adequate control (6) Abnormal finding on CT scan Status: Acute Comment: Please see notes from Dr. Red Result Diagram: 03/25/18 0553 03/25/18 0553 Results 24hrs Laboratory Tests Test 03/24/18 17:41 03/24/18 20:25 03/25/18 05:53 03/25/18 07:43 Bedside Glucose 255 H 87 105 White Blood Count 14.5 H Red Blood Count 3.68 L Hemoglobin 9.4 L Hematocrit 29.2 L Mean Corpuscular 79.3 L Volume Mean Corpuscular 25.5 L Hemoglobin Mean Corpuscular 32.2 Hemoglobin Concent Red Cell 13.4 Distribution Width Platelet Count 342 Mean Platelet Volume 8.6 Immature 1.000 H Granulocytes % Neutrophils % 74.2 Lymphocytes % 17.5 Monocytes % 5.6 Eosinophils % 1.3 Basophils % 0.4 Nucleated Red Blood 0.0 Cells % Immature 0.140 H Granulocytes # Neutrophils # 10.8 H Lymphocytes # 2.5 Monocytes # 0.8 Eosinophils # 0.2 Basophils # 0.1 Nucleated Red Blood 0.0 Cells # Sodium Level 136 Potassium Level 4.3 Chloride Level 101 Carbon Dioxide Level 26 Anion Gap 9 Blood Urea Nitrogen 26 H Creatinine 1.47 H Est Glomerular 48 L Filtrat Rate mL/min Glucose Level 134 Calcium Level 8.6 Prostate Specific 2.3 Antigen Test 03/25/18 11:36 Bedside Glucose 151 Consultation Date/Type/Reason Admit Date/Time Mar 19, 2018 at 20:19 Initial Consult Date 03/21/18 Type of Consult Endocrine Reason for Consultation Diabetes mellitus type II; Proteus UTI; strep bacteremia; chronic kidney disease stage II; Requesting Provider: CORWIN EMANUEL 24 HR Interval Summary Free Text/Dictation Patient reports he had an episode yesterday of fever with shaking chills and drenching sweats. No known and no documented hypoglycemia. Constitutional: chills, diaphoresis Detailed Summary Genitourinary: other (Ryan catheter) Endocrine: no complaints Exam/Review of Systems Vital Signs Vitals Vital Signs Date Temp Pulse Resp B/P (MAP) Pulse Ox O2 O2 Flow FiO2 Time Delivery Rate 03/25/18 60 12:27 03/25/18 98.0 20 119/56 99 Room Air 11:50 (77) 03/23/18 1.0 17:50 03/23/18 27 04:41 Intake and Output 03/24/18 03/24/18 03/25/18 1515:00 23:00 07:00 IntakeIntake Total 360 ml 590 ml 250 ml OutputOutput Total 1200 ml 1000 ml BalanceBalance 360 ml -610 ml -750 ml Exam Constitutional: alert, oriented Neck: supple, non-tender Respiratory: clear to auscultation, normal air movement Cardiovascular: regular rate and rhythm, nl pulses Gastrointestinal: soft, nl liver, spleen, non-tender Genitourinary - Male: other (Ryan catheter present) Medications Medications Current Medications Ondansetron HCl (Zofran Inj) 4 mg Q6H PRN IV NAUSEA AND/OR VOMITING Last administered on 03/24/18at 20:14; Admin Dose 4 MG; Start 03/19/18 at 20:30 Metoclopramide HCl (Reglan) 10 mg Q6H PRN IV NAUSEA AND/OR VOMITING; Start 03/19/18 at 20:30 Albuterol (Proventil 0.083% (Neb)) 2.5 mg Q2H RESP THERAPY PRN NEB SHORTNESS OF BREATH; Start 03/19/18 at 20:30 Ipratropium [place] (Atrovent 0.02% (Neb)) 0.5 mg Q2H RESP THERAPY PRN NEB SHORTNESS OF BREATH; Start 03/19/18 at 20:30 Acetaminophen (Tylenol Liquid) 650 mg Q6H PRN PO PAIN LEVEL 1-3 OR FEVER Last administered on 03/24/18at 20:15; Admin Dose 650 MG; Start 03/19/18 at 20:30 Docusate Sodium (Colace) 100 mg Q12H PRN PO CONSTIPATION; Start 03/19/18 at 20:30 Bisacodyl (Dulcolax) 5 mg DAILY PRN PO CONSTIPATION; Start 03/19/18 at 20:30 Aspirin (Halfprin) 81 mg DAILY PO Last administered on 03/25/18at 08:52; Admin Dose 81 MG; Start 03/20/18 at 09:00 Insulin Aspart (Novolog Insulin Pen) NOVOLOG *MODERATE* ALGORITHM WITH MEALS BEDTIME SC Last administered on 03/25/18at 11:48; Admin Dose 2 UNIT; Start 03/20/18 at 11:30 Miscellaneous Information 1 ea NOTE XX ; Start 03/20/18 at 10:30 Glucose (Glutose) 15 gm Q15M PRN PO DECREASED GLUCOSE; Start 03/20/18 at 10:30 Glucose (Glutose) 22.5 gm Q15M PRN PO DECREASED GLUCOSE; Start 03/20/18 at 10:30 Dextrose (D50w Syringe) 25 ml Q15M PRN IV DECREASED GLUCOSE; Start 03/20/18 at 10:30 Dextrose (D50w Syringe) 50 ml Q15M PRN IV DECREASED GLUCOSE; Start 03/20/18 at 10:30 Glucagon (Glucagen) 1 mg Q15M PRN IM DECREASED GLUCOSE; Start 03/20/18 at 10:30 Glucose (Glutose) 15 gm Q15M PRN BUCCAL DECREASED GLUCOSE Last administered on 03/22/18at 21:35; Admin Dose 15 GM; Start 03/20/18 at 10:30 Ceftriaxone Sodium 50 ml @ 100 mls/hr Q24H IVPB Last administered on 03/24/18at 23:33; Admin Dose 100 MLS/HR; Start 03/21/18 at 00:00; Stop 03/30/18 at 23:59 Gabapentin (Neurontin) 300 mg QHS PO Last administered on 03/24/18at 20:17; Admin Dose 300 MG; Start 03/21/18 at 00:00 Tramadol HCl (Ultram) 50 mg Q6H PRN PO PAIN Last administered on 03/21/18at 00:24; Admin Dose 50 MG; Start 03/21/18 at 00:00 Tamsulosin HCl (Flomax) 0.4 mg DAILY@2100 PO Last administered on 03/24/18at 20:23; Admin Dose 0.4 MG; Start 03/21/18 at 21:00 Miscellaneous Information (* Miscellaneous Pharmacy Order) D50 1/2 AMP + 10 UNITS... ONCE XX ; Start 03/21/18 at 22:00 Gabapentin (Neurontin) 300 mg DAILY PO Last administered on 03/25/18at 08:51; Admin Dose 300 MG; Start 03/22/18 at 14:30 Heparin Sodium (Porcine) (Heparin (5000 Units/1ml)) 5,000 unit Q12 SC ; Start 03/22/18 at 21:00 Pantoprazole (Protonix Tab) 40 mg DAILY@06 PO Last administered on 03/25/18at 06:11; Admin Dose 40 MG; Start 03/23/18 at 06:00 Linagliptin (Tradjenta) 5 mg DAILY PO Last administered on 03/25/18at 08:52; Admin Dose 5 MG; Start 03/22/18 at 17:00 Carvedilol (Coreg) 12.5 mg BID PO Last administered on 03/25/18at 08:53; Admin Dose 12.5 MG; Start 03/23/18 at 21:00 Morphine Sulfate (morphine SULFATE (PF)) 2 mg Q4H PRN IV PAIN LEVEL 7-10 Last administered on 03/24/18at 23:33; Admin Dose 2 MG; Start 03/23/18 at 17:15 Finasteride (Proscar) 5 mg DAILY PO Last administered on 03/25/18at 08:51; Admin Dose 5 MG; Start 03/24/18 at 13:30 Lisinopril (Zestril) 10 mg DAILY PO Last administered on 03/25/18at 08:53; Admin Dose 10 MG; Start 03/24/18 at 13:30 Insulin Aspart (Novolog Insulin Pen) 14 unit WITH MEALS SC ; Start 03/25/18 at 17:55; Status UNV Insulin Glargine (Lantus) 42 units DAILY@0800 SC ; Start 03/26/18 at 08:00; Status JEAN BARON MD Mar 25, 2018 13:15
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
[2018-03-25] MEDS: ACCU-CHEK XX SCH ×2 (17:12→20:26)
[2018-03-25] MEDS: REPAGLINIDE 2 MG TAB PO SCH (17:21)
[2018-03-25] MEDS ORDERED: INSULIN ASPART [NOVOLOG] 3 ML PEN SC SCH (17:55)
[2018-03-25] MEDS: TAMSULOSIN (SR) 0.4 MG CAP PO SCH (20:13)
[2018-03-25] MEDS: morphine SULFATE/PF (2 MG/2 ML) SYG IV PRN (20:14)
[2018-03-25] MEDS: ACETAMINOPHEN 650MG/20.3ML CUP PO PRN (21:52)
[2018-03-26] MEDS: CEFTRIAXONE 1 GM/50 ML (PMX) 50 ML IVPB SCH (00:03)
--- NOTE | 2018-03-26 01:10 | NUR ---
RN NOTES TRANSFER PATIENT TO [facility] / [facility],AWAKE ALERT ORIENTED WITH NO COMPLAINT OF PAIN OR DISCOMFORT.VITAL SIGNS STABLE.ALL BELONGINGS TRANSFERED WITH PATIENT.REPORT GIVEN TO ML JJ.
[2018-03-26 01:16] VITALS: BP 107/56; PULSE 71; RESP 20
[2018-03-26] MEDS: morphine 4 MG/ML VIAL IV PRN ×2 (02:33→16:00)
--- NOTE | 2018-03-26 04:23 | NUR ---
RN NOTE: Pt was transfer from the telemetry unit at 0110 am via wheelchair. Pt is AOX4. OOB with supervision. Safety precautions maintained.
--- NOTE | 2018-03-26 06:03 | NUR ---
END OF SHIFT NOTE: AOX4. Pt was transfer from the telemetry floor, Given morphine for pain prn. OOB independently with supervision. Ryan catheter in place. Safety precautions maintained, call light within reach, bed to lowest position.
[2018-03-26] MEDS: PANTOPRAZOLE (EC) 40 MG TAB PO SCH (06:46)
[2018-03-26] MEDS: ONDANSETRON 4 MG INJ IV PRN (06:53)
[2018-03-26] MEDS: ACCU-CHEK XX SCH ×4 (07:20→21:00)
[2018-03-26 07:26] VITALS: BP 132/63; PULSE 65; RESP 18
[2018-03-26] MEDS: REPAGLINIDE 2 MG TAB PO SCH ×3 (07:50→18:04)
[2018-03-26] MEDS: HEPARIN 5,000 UNIT/1 ML VIAL SC SCH ×2 (09:00→21:00)
[2018-03-26] MEDS: INSULIN ASPART [NOVOLOG] 3 ML PEN SC SCH ×4 (09:01→21:00)
[2018-03-26] MEDS: FINASTERIDE 5 MG TAB PO SCH (09:04)
[2018-03-26] MEDS: LISINOPRIL 10 MG TAB PO SCH (09:04)
[2018-03-26] MEDS: LINAGLIPTIN 5 MG TABLET PO SCH (09:04)
[2018-03-26] MEDS: ASPIRIN (EC) 81 MG TAB PO SCH (09:05)
[2018-03-26] MEDS: GABAPENTIN 300 MG CAP PO SCH ×2 (09:06→21:08)
[2018-03-26] MEDS: INSULIN GLARGINE [LANTus] (100 UNITS/ML) SYG SC SCH (09:19)
--- NOTE | 2018-03-26 12:25 | CONS ---
Date/Time of Note Date/Time of Note DATE: 03/26/18 TIME: 12:25 Assessment/Plan Assessment/Plan Assessment/Plan 1. acute hyperkalemia due to RATNA- resolved 2. Hyponatremia due to hypovolemic Hyponatremia from DKA- Resolved 3. acute Kidney injury on CKD III due to ATN + prerenal azotemia- Improving 4 Acute diabeitc ketoacidosis due to UTI + ? complaince- resolved 5. 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 H/o HTN 8. H/o HL Plan: BUN/Cr , K normal , Ryan catheter just discontinued, we wait to see if pt can void ok Follow up with me in clinic in 1-2 week upon discharge will follow up Result Diagram: 03/26/18 0419 03/26/18 0419 Results 24hrs Laboratory Tests Test 03/25/18 17:11 03/25/18 20:12 03/26/18 04:19 03/26/18 08:58 Bedside Glucose 200 196 104 White Blood Count 13.2 H Red Blood Count 3.89 L Hemoglobin 9.9 L Hematocrit 31.0 L Mean Corpuscular 79.7 L Volume Mean Corpuscular 25.4 L Hemoglobin Mean Corpuscular 31.9 L Hemoglobin Concent Red Cell 13.2 Distribution Width Platelet Count 357 Mean Platelet Volume 9.3 Immature 0.800 H Granulocytes % Neutrophils % 69.7 Lymphocytes % 20.2 Monocytes % 7.0 Eosinophils % 1.8 Basophils % 0.5 Nucleated Red Blood 0.0 Cells % Immature 0.100 H Granulocytes # Neutrophils # 9.2 H Lymphocytes # 2.7 Monocytes # 0.9 Eosinophils # 0.2 Basophils # 0.1 Nucleated Red Blood 0.0 Cells # Sodium Level 137 Potassium Level 4.4 Chloride Level 103 Carbon Dioxide Level 26 Anion Gap 8 Blood Urea Nitrogen 23 H Creatinine 1.31 H Est Glomerular 55 L Filtrat Rate mL/min Glucose Level 160 Calcium Level 8.8 Consultation Date/Type/Reason Admit Date/Time Mar 19, 2018 at 20:19 Initial Consult Date 03/19/2018 Type of Consult NEPHROLOGY Requesting Provider: CORWIN EMANUEL Exam/Review of Systems Vital Signs Vitals Vital Signs Date Temp Pulse Resp B/P (MAP) Pulse Ox O2 O2 Flow FiO2 Time Delivery Rate 03/26/18 98.1 65 18 132/63 99 07:26 (86) 03/26/18 Room Air 01:16 03/23/18 1.0 17:50 03/23/18 27 04:41 Intake and Output 03/25/18 03/25/18 03/26/18 1515:00 23:00 07:00 IntakeIntake Total 360 ml 940 ml 450 ml OutputOutput Total 900 ml 1000 ml BalanceBalance 360 ml 40 ml -550 ml Medications Medications Current Medications Ondansetron HCl (Zofran Inj) 4 mg Q6H PRN IV NAUSEA AND/OR VOMITING Last administered on 03/26/18at 06:53; Admin Dose 4 MG; Start 03/19/18 at 20:30 Metoclopramide HCl (Reglan) 10 mg Q6H PRN IV NAUSEA AND/OR VOMITING; Start 03/19/18 at 20:30 Albuterol (Proventil 0.083% (Neb)) 2.5 mg Q2H RESP THERAPY PRN NEB SHORTNESS OF BREATH; Start 03/19/18 at 20:30 Ipratropium [place] (Atrovent 0.02% (Neb)) 0.5 mg Q2H RESP THERAPY PRN NEB SHORTNESS OF BREATH; Start 03/19/18 at 20:30 Acetaminophen (Tylenol Liquid) 650 mg Q6H PRN PO PAIN LEVEL 1-3 OR FEVER Last administered on 03/25/18at 21:52; Admin Dose 650 MG; Start 03/19/18 at 20:30 Docusate Sodium (Colace) 100 mg Q12H PRN PO CONSTIPATION; Start 03/19/18 at 20:30 Bisacodyl (Dulcolax) 5 mg DAILY PRN PO CONSTIPATION; Start 03/19/18 at 20:30 Aspirin (Halfprin) 81 mg DAILY PO Last administered on 03/26/18at 09:05; Admin Dose 81 MG; Start 03/20/18 at 09:00 Insulin Aspart (Novolog Insulin Pen) NOVOLOG *MODERATE* ALGORITHM WITH MEALS BEDTIME SC Last administered on 03/25/18at 17:20; Admin Dose 4 UNIT; Start 03/20/18 at 11:30 Miscellaneous Information 1 ea NOTE XX ; Start 03/20/18 at 10:30 Glucose (Glutose) 15 gm Q15M PRN PO DECREASED GLUCOSE; Start 03/20/18 at 10:30 Glucose (Glutose) 22.5 gm Q15M PRN PO DECREASED GLUCOSE; Start 03/20/18 at 10:30 Dextrose (D50w Syringe) 25 ml Q15M PRN IV DECREASED GLUCOSE; Start 03/20/18 at 10:30 Dextrose (D50w Syringe) 50 ml Q15M PRN IV DECREASED GLUCOSE; Start 03/20/18 at 10:30 Glucagon (Glucagen) 1 mg Q15M PRN IM DECREASED GLUCOSE; Start 03/20/18 at 10:30 Glucose (Glutose) 15 gm Q15M PRN BUCCAL DECREASED GLUCOSE Last administered on 03/22/18at 21:35; Admin Dose 15 GM; Start 03/20/18 at 10:30 Ceftriaxone Sodium 50 ml @ 100 mls/hr Q24H IVPB Last administered on 03/26/18at 00:03; Admin Dose 100 MLS/HR; Start 03/21/18 at 00:00; Stop 03/30/18 at 23:59 Gabapentin (Neurontin) 300 mg QHS PO Last administered on 03/25/18at 20:14; Admin Dose 300 MG; Start 03/21/18 at 00:00 Tramadol HCl (Ultram) 50 mg Q6H PRN PO PAIN Last administered on 03/21/18at 00 :24; Admin Dose 50 MG; Start 03/21/18 at 00:00 Tamsulosin HCl (Flomax) 0.4 mg DAILY@2100 PO Last administered on 03/25/18at 20:13; Admin Dose 0.4 MG; Start 03/21/18 at 21:00 Miscellaneous Information (* Miscellaneous Pharmacy Order) D50 1/2 AMP + 10 UNITS... ONCE XX ; Start 03/21/18 at 22:00 Gabapentin (Neurontin) 300 mg DAILY PO Last administered on 03/26/18at 09:06; Admin Dose 300 MG; Start 03/22/18 at 14:30 Heparin Sodium (Porcine) (Heparin (5000 Units/1ml)) 5,000 unit Q12 SC ; Start 03/22/18 at 21:00 Pantoprazole (Protonix Tab) 40 mg DAILY@06 PO Last administered on 03/26/18at 06:46; Admin Dose 40 MG; Start 03/23/18 at 06:00 Linagliptin (Tradjenta) 5 mg DAILY PO Last administered on 03/26/18 09:04; Admin Dose 5 MG; Start 03/22/18 at 17:00 Carvedilol (Coreg) 12.5 mg BID PO Last administered on 03/26/18 09:05; Admin Dose 12.5 MG; Start 03/23/18 at 21:00 Finasteride (Proscar) 5 mg DAILY PO Last administered on 03/26/18 09:04; Admin Dose 5 MG; Start 03/24/18 at 13:30 Lisinopril (Zestril) 10 mg DAILY PO Last administered on 03/26/18 09:04; Admin Dose 10 MG; Start 03/24/18 at 13:30 Insulin Glargine (Lantus) 42 units DAILY@0800 SC Last administered on 03/26/18 09:19; Admin Dose 42 UNITS; Start 03/26/18 at 08:00 Repaglinide (Prandin) 2 mg WITH MEALS PO Last administered on 03/25/18 17:21; Admin Dose 2 MG; Start 03/25/18 at 17:55 Diagnostic Test (Pha) (Accu-Chek) 1 ea AC MEALS AND BEDTIME XX Last administered on 03/26/18 07:20; Admin Dose 1 EA; Start 03/25/18 at 17:25 Morphine Sulfate (morphine) 2 mg Q4H PRN IV PAIN LEVEL 7-10 Last administered on 03/26/18 02:33; Admin Dose 2 MG; Start 03/26/18 at 02:30 TALITA DICKENS MD Mar 26, 2018 12:25
[2018-03-26 14:16] VITALS: BP 144/68; PULSE 73; RESP 18
--- NOTE | 2018-03-26 14:19 | CONS ---
Date/Time of Note Date/Time of Note DATE: 03/26/18 TIME: 14:16 Assessment/Plan Assessment/Plan Problems: (1) Diabetes mellitus type 2 in nonobese Status: Chronic Comment: Adequate glycemic control on the current regimen. As an outpatient consideration of the usage of GLP-1 drug is a legitimate question in this gentleman. But we would get rid of the DPP 4 inhibitor start him on the GLP-1 continue the secretagogue therapy and lower the insulin and see how he does (2) Essential hypertension Status: Chronic Comment: Adequate glycemic control under the current regimen. (3) Hyperlipidemia associated with type 2 diabetes mellitus Status: Chronic Comment: Continue with statin therapy (4) Acute kidney injury superimposed on CKD Status: Acute Comment: He is at baseline with some degree of chronic kidney disease. He is tolerating his medications including GRACY inhibitors which are renally protective (5) GERD (gastroesophageal reflux disease) Status: Acute Comment: Noted. Qualifiers: Esophagitis presence: without esophagitis Qualified Codes: K21.9 - Gastro- esophageal reflux disease without esophagitis (6) Pyelonephritis Status: Acute Comment: On antibiotic therapy and doing well. (7) BPH w urinary obs/LUTS Status: Chronic Comment: His Ryan catheter is out. We will check postvoid residuals and see how he does on the combination of tamsulosin with finasteride Result Diagram: 03/26/18 0419 03/26/18 0419 Results 24hrs Laboratory Tests Test 03/25/18 17:11 03/25/18 20:12 03/26/18 04:19 03/26/18 08:58 Bedside Glucose 200 196 104 White Blood Count 13.2 H Red Blood Count 3.89 L Hemoglobin 9.9 L Hematocrit 31.0 L Mean Corpuscular 79.7 L Volume Mean Corpuscular 25.4 L Hemoglobin Mean Corpuscular 31.9 L Hemoglobin Concent Red Cell 13.2 Distribution Width Platelet Count 357 Mean Platelet Volume 9.3 Immature 0.800 H Granulocytes % Neutrophils % 69.7 Lymphocytes % 20.2 Monocytes % 7.0 Eosinophils % 1.8 Basophils % 0.5 Nucleated Red Blood 0.0 Cells % Immature 0.100 H Granulocytes # Neutrophils # 9.2 H Lymphocytes # 2.7 Monocytes # 0.9 Eosinophils # 0.2 Basophils # 0.1 Nucleated Red Blood 0.0 Cells # Sodium Level 137 Potassium Level 4.4 Chloride Level 103 Carbon Dioxide Level 26 Anion Gap 8 Blood Urea Nitrogen 23 H Creatinine 1.31 H Est Glomerular 55 L Filtrat Rate mL/min Glucose Level 160 Calcium Level 8.8 Test 03/26/18 12:47 Bedside Glucose 166 Consultation Date/Type/Reason Admit Date/Time Mar 19, 2018 at 20:19 Initial Consult Date 03/21/18 Type of Consult Endocrine Reason for Consultation Patient reports Ryan catheter is out and he is feeling better. He is curious about GLP-1 drug treatment for his diabetes. Requesting Provider: CORWIN EMANUEL 24 HR Interval Summary Constitutional: no complaints Detailed Summary Musculoskeletal: no complaints Skin: no complaints Neurologic: no complaints Exam/Review of Systems Vital Signs Vitals Vital Signs Date Temp Pulse Resp B/P (MAP) Pulse Ox O2 O2 Flow FiO2 Time Delivery Rate 03/26/18 98.1 65 18 132/63 99 07:26 (86) 03/26/18 Room Air 01:16 03/23/18 1.0 17:50 03/23/18 27 04:41 Intake and Output 03/25/18 03/25/18 03/26/18 1515:00 23:00 07:00 IntakeIntake Total 360 ml 940 ml 450 ml OutputOutput Total 900 ml 1000 ml BalanceBalance 360 ml 40 ml -550 ml Exam Constitutional: alert, oriented Respiratory: clear to auscultation, normal air movement Cardiovascular: regular rate and rhythm, nl pulses Medications Medications Current Medications Ondansetron HCl (Zofran Inj) 4 mg Q6H PRN IV NAUSEA AND/OR VOMITING Last administered on 03/26/18at 06:53; Admin Dose 4 MG; Start 03/19/18 at 20:30 Metoclopramide HCl (Reglan) 10 mg Q6H PRN IV NAUSEA AND/OR VOMITING; Start 01/25 at 20:30 Albuterol (Proventil 0.083% (Neb)) 2.5 mg Q2H RESP THERAPY PRN NEB SHORTNESS OF BREATH; Start 03/19/18 at 20:30 Ipratropium [place] (Atrovent 0.02% (Neb)) 0.5 mg Q2H RESP THERAPY PRN NEB SHORTNESS OF BREATH; Start 03/19/18 at 20:30 Acetaminophen (Tylenol Liquid) 650 mg Q6H PRN PO PAIN LEVEL 1-3 OR FEVER Last administered on 03/25/18at 21:52; Admin Dose 650 MG; Start 03/19/18 at 20:30 Docusate Sodium (Colace) 100 mg Q12H PRN PO CONSTIPATION; Start 03/19/18 at 20:30 Bisacodyl (Dulcolax) 5 mg DAILY PRN PO CONSTIPATION; Start 03/19/18 at 20:30 Aspirin (Halfprin) 81 mg DAILY PO Last administered on 03/26/18at 09:05; Admin Dose 81 MG; Start 03/20/18 at 09:00 Insulin Aspart (Novolog Insulin Pen) NOVOLOG *MODERATE* ALGORITHM WITH MEALS BEDTIME SC Last administered on 03/26/18at 12:53; Admin Dose 2 UNIT; Start 03/20/18 at 11:30 Miscellaneous Information 1 ea NOTE XX ; Start 03/20/18 at 10:30 Glucose (Glutose) 15 gm Q15M PRN PO DECREASED GLUCOSE; Start 03/20/18 at 10:30 Glucose (Glutose) 22.5 gm Q15M PRN PO DECREASED GLUCOSE; Start 03/20/18 at 10:30 Dextrose (D50w Syringe) 25 ml Q15M PRN IV DECREASED GLUCOSE; Start 03/20/18 at 10:30 Dextrose (D50w Syringe) 50 ml Q15M PRN IV DECREASED GLUCOSE; Start 03/20/18 at 10:30 Glucagon (Glucagen) 1 mg Q15M PRN IM DECREASED GLUCOSE; Start 03/20/18 at 10:30 Glucose (Glutose) 15 gm Q15M PRN BUCCAL DECREASED GLUCOSE Last administered on 03/22/18at 21:35; Admin Dose 15 GM; Start 03/20/18 at 10:30 Ceftriaxone Sodium 50 ml @ 100 mls/hr Q24H IVPB Last administered on 03/26/18at 00:03; Admin Dose 100 MLS/HR; Start 03/21/18 at 00:00; Stop 03/30/18 at 23:59 Gabapentin (Neurontin) 300 mg QHS PO Last administered on 03/25/18at 20:14; Admin Dose 300 MG; Start 03/21/18 at 00:00 Tramadol HCl (Ultram) 50 mg Q6H PRN PO PAIN Last administered on 03/21/18at 00:24; Admin Dose 50 MG; Start 03/21/18 at 00:00 Tamsulosin HCl (Flomax) 0.4 mg DAILY@2100 PO Last administered on 03/25/18at 20:13; Admin Dose 0.4 MG; Start 03/21/18 at 21:00 Miscellaneous Information (* Miscellaneous Pharmacy Order) D50 1/2 AMP + 10 UNITS... ONCE XX ; Start 03/21/18 at 22:00 Gabapentin (Neurontin) 300 mg DAILY PO Last administered on 03/26/18at 09:06; Admin Dose 300 MG; Start 03/22/18 at 14:30 Heparin Sodium (Porcine) (Heparin (5000 Units/1ml)) 5,000 unit Q12 SC ; Start 03/22/18 at 21:00 Pantoprazole (Protonix Tab) 40 mg DAILY@06 PO Last administered on 03/26/18at 06:46; Admin Dose 40 MG; Start 03/23/18 at 06:00 Linagliptin (Tradjenta) 5 mg DAILY PO Last administered on 03/26/18at 09:04; Admin Dose 5 MG; Start 03/22/18 at 17:00 Carvedilol (Coreg) 12.5 mg BID PO Last administered on 03/26/18 09:05; Admin Dose 12.5 MG; Start 03/23/18 at 21:00 Finasteride (Proscar) 5 mg DAILY PO Last administered on 03/26/18at 09:04; Admin Dose 5 MG; Start 03/24/18 at 13:30 Lisinopril (Zestril) 10 mg DAILY PO Last administered on 03/26/18at 09:04; Admin Dose 10 MG; Start 03/24/18 at 13:30 Insulin Glargine (Lantus) 42 units DAILY@0800 SC Last administered on 03/26/18 09:19; Admin Dose 42 UNITS; Start 03/26/18 at 08:00 Repaglinide (Prandin) 2 mg WITH MEALS PO Last administered on 03/26/18at 12:48; Admin Dose 2 MG; Start 03/25/18 at 17:55 Diagnostic Test (Pha) (Accu-Chek) 1 ea AC MEALS AND BEDTIME XX Last administered on 03/26/18at 12:54; Admin Dose 1 EA; Start 03/25/18 at 17:25 Morphine Sulfate (morphine) 2 mg Q4H PRN IV PAIN LEVEL 7-10 Last administered on 03/26/18at 02:33; Admin Dose 2 MG; Start 03/26/18 at 02:30 JEAN TRAYLOR MD Mar 26, 2018 14:19
--- NOTE | 2018-03-26 14:54 | CONS ---
Date/Time of Note Date/Time of Note DATE: 03/26/18 TIME: 14:49 Consult Date/Type/Reason Admit Date/Time Mar 19, 2018 at 20:19 Initial Consult Date 03/24/18 Type of Consultation: Urology Reason for Consultation Urinary tract infection Requesting Provider: CORWIN EMANUEL Subjective Patient is much more alert uncomfortable. Objective Vital Signs Date Temp Pulse Resp B/P (MAP) Pulse Ox O2 O2 Flow FiO2 Time Delivery Rate 03/26/18 98.1 73 18 144/68 99 14:16 (93) 03/26/18 Room Air 01:16 03/23/18 1.0 17:50 03/23/18 27 04:41 Intake and Output 03/25/18 03/25/18 03/26/18 1515:00 23:00 07:00 IntakeIntake Total 360 ml 940 ml 450 ml OutputOutput Total 900 ml 1000 ml BalanceBalance 360 ml 40 ml -550 ml Exam The Ryan catheter is draining clear urine. The urinary tract infection is being treated. Results/Medications Result Diagram: 03/26/18 0419 03/26/18 0419 Results 24 hrs Laboratory Tests Test 03/25/18 17:11 03/25/18 20:12 03/26/18 04:19 03/26/18 08:58 Bedside Glucose 200 196 104 White Blood Count 13.2 H Red Blood Count 3.89 L Hemoglobin 9.9 L Hematocrit 31.0 L Mean Corpuscular 79.7 L Volume Mean Corpuscular 25.4 L Hemoglobin Mean Corpuscular 31.9 L Hemoglobin Concent Red Cell 13.2 Distribution Width Platelet Count 357 Mean Platelet Volume 9.3 Immature 0.800 H Granulocytes % Neutrophils % 69.7 Lymphocytes % 20.2 Monocytes % 7.0 Eosinophils % 1.8 Basophils % 0.5 Nucleated Red Blood 0.0 Cells % Immature 0.100 H Granulocytes # Neutrophils # 9.2 H Lymphocytes # 2.7 Monocytes # 0.9 Eosinophils # 0.2 Basophils # 0.1 Nucleated Red Blood 0.0 Cells # Sodium Level 137 Potassium Level 4.4 Chloride Level 103 Carbon Dioxide Level 26 Anion Gap 8 Blood Urea Nitrogen 23 H Creatinine 1.31 H Est Glomerular 55 L Filtrat Rate mL/min Glucose Level 160 Calcium Level 8.8 Test 03/26/18 12:47 Bedside Glucose 166 Medications Current Medications Ondansetron HCl (Zofran Inj) 4 mg Q6H PRN IV NAUSEA AND/OR VOMITING Last administered on 03/26/18at 06:53; Admin Dose 4 MG; Start 03/19/18 at 20:30 Metoclopramide HCl (Reglan) 10 mg Q6H PRN IV NAUSEA AND/OR VOMITING; Start 03/19/18 at 20:30 Albuterol (Proventil 0.083% (Neb)) 2.5 mg Q2H RESP THERAPY PRN NEB SHORTNESS OF BREATH; Start 03/19/18 at 20:30 Ipratropium [place] (Atrovent 0.02% (Neb)) 0.5 mg Q2H RESP THERAPY PRN NEB SHORTNESS OF BREATH; Start 03/19/18 at 20:30 Acetaminophen (Tylenol Liquid) 650 mg Q6H PRN PO PAIN LEVEL 1-3 OR FEVER Last administered on 03/25/18at 21:52; Admin Dose 650 MG; Start 03/19/18 at 20:30 Docusate Sodium (Colace) 100 mg Q12H PRN PO CONSTIPATION; Start 03/19/18 at 20:30 Bisacodyl (Dulcolax) 5 mg DAILY PRN PO CONSTIPATION; Start 03/19/18 at 20:30 Aspirin (Halfprin) 81 mg DAILY PO Last administered on 03/26/18at 09:05; Admin Dose 81 MG; Start 03/20/18 at 09:00 Insulin Aspart (Novolog Insulin Pen) NOVOLOG *MODERATE* ALGORITHM WITH MEALS BEDTIME SC Last administered on 03/26/18at 12:53; Admin Dose 2 UNIT; Start 03/20/18 at 11:30 Miscellaneous Information 1 ea NOTE XX ; Start 03/20/18 at 10:30 Glucose (Glutose) 15 gm Q15M PRN PO DECREASED GLUCOSE; Start 03/20/18 at 10:30 Glucose (Glutose) 22.5 gm Q15M PRN PO DECREASED GLUCOSE; Start 03/20/18 at 10 :30 Dextrose (D50w Syringe) 25 ml Q15M PRN IV DECREASED GLUCOSE; Start 03/20/18 at 10:30 Dextrose (D50w Syringe) 50 ml Q15M PRN IV DECREASED GLUCOSE; Start 03/20/18 at 10:30 Glucagon (Glucagen) 1 mg Q15M PRN IM DECREASED GLUCOSE; Start 03/20/18 at 10:30 Glucose (Glutose) 15 gm Q15M PRN BUCCAL DECREASED GLUCOSE Last administered on 03/22/18at 21:35; Admin Dose 15 GM; Start 03/20/18 at 10:30 Ceftriaxone Sodium 50 ml @ 100 mls/hr Q24H IVPB Last administered on 03/26/18at 00:03; Admin Dose 100 MLS/HR; Start 03/21/18 at 00:00; Stop 03/30/18 at 23:59 Gabapentin (Neurontin) 300 mg QHS PO Last administered on 03/25/18 20:14; Admin Dose 300 MG; Start 03/21/18 at 00:00 Tramadol HCl (Ultram) 50 mg Q6H PRN PO PAIN Last administered on 03/21/18 00:24; Admin Dose 50 MG; Start 03/21/18 at 00:00 Tamsulosin HCl (Flomax) 0.4 mg DAILY@2100 PO Last administered on 03/25/18 20:13; Admin Dose 0.4 MG; Start 03/21/18 at 21:00 Miscellaneous Information (* Miscellaneous Pharmacy Order) D50 1/2 AMP + 10 UNITS... ONCE XX ; Start 03/21/18 at 22:00 Gabapentin (Neurontin) 300 mg DAILY PO Last administered on 03/26/18 09:06; Admin Dose 300 MG; Start 03/22/18 at 14:30 Heparin Sodium (Porcine) (Heparin (5000 Units/1ml)) 5,000 unit Q12 SC ; Start 03/22/18 at 21:00 Pantoprazole (Protonix Tab) 40 mg DAILY@06 PO Last administered on 03/26/18at 06:46; Admin Dose 40 MG; Start 03/23/18 at 06:00 Linagliptin (Tradjenta) 5 mg DAILY PO Last administered on 03/26/18 09:04; Admin Dose 5 MG; Start 03/22/18 at 17:00 Carvedilol (Coreg) 12.5 mg BID PO Last administered on 03/26/18 09:05; Admin Dose 12.5 MG; Start 03/23/18 at 21:00 Finasteride (Proscar) 5 mg DAILY PO Last administered on 03/26/18 09:04; Admin Dose 5 MG; Start 03/24/18 at 13:30 Lisinopril (Zestril) 10 mg DAILY PO Last administered on 03/26/18at 09:04; Admin Dose 10 MG; Start 03/24/18 at 13:30 Insulin Glargine (Lantus) 42 units DAILY@0800 SC Last administered on 03/26/18at 09:19; Admin Dose 42 UNITS; Start 03/26/18 at 08:00 Repaglinide (Prandin) 2 mg WITH MEALS PO Last administered on 03/26/18at 12:48; Admin Dose 2 MG; Start 03/25/18 at 17:55 Diagnostic Test (Pha) (Accu-Chek) 1 ea AC MEALS AND BEDTIME XX Last administered on 03/26/18 12:54; Admin Dose 1 EA; Start 03/25/18 at 17:25 Morphine Sulfate (morphine) 2 mg Q4H PRN IV PAIN LEVEL 7-10 Last administered on 03/26/18 02:33; Admin Dose 2 MG; Start 03/26/18 at 02:30 Assessment/Plan Chief Complaint/Hosp Course 63-year-old male with a history of diabetes mellitus ,chronic kidney disease, hypertension and degenerative disc disease came to the emergency department with multiple complaints. Patient reports that he has been having dysuria. He states the urine smells foul. Patient also reports that his diabetes has been poorly controlled. He reports that he has been compliant with his insulin regimen of Lantus 60 units daily and NovoLog 25-35 units at mealtime. However he reports that despite this his blood sugars are running from the 300s-400s. He reports chronic back pain. Renal ultrasound done on admission showed urinary retention with the bladder distended. Patient underwent a CT scan of the abdomen and pelvis after that and that showed : 1. No gross renal/ureteric calculi. No evidence of obstructive uropathy. There is nonspecific bilateral perinephric fat stranding. 2. MARKED IRREGULAR THICKENING OF THE DURAN OF THE BLADDER WITH ADJACENT FATTY STRANDING. ALTHOUGH FINDINGS COULD REPRESENT SEVERE CYSTITIS, CANNOT EXCLUDE POSSIBILITY OF MALIGNANCY. RECOMMEND DIRECT VISUALIZATION. SEVERAL PELVIC NONSPECIFIC LYMPH NODES AND INGUINAL LYMPH NODES, WHICH MAY BE REACTIVE. 3. HETEROGENEOUS APPEARANCE OF THE PROSTATE GLAND WHICH IS ENLARGED. RECOMMEND CORRELATION WITH PSA LEVELS. THERE ARE SEVERAL LOW ATTENUATION AREAS WITHIN THE PROSTATE AND UNDERLYING PROSTATE INFECTION IS ALSO WITHIN THE DIFFERENTIAL. RECOMMEND FOLLOW-UP CONTRAST-ENHANCED CT SCAN OF THE PELVIS. 4. SEVERAL PERIRECTAL LYMPH NODES SUBTLE THICKENING OF THE DURAN OF THE RECTUM. RECOMMEND FOLLOW-UP COLONOSCOPY TO EXCLUDE THE POSSIBILITY OF RECTAL MALIGNANCY. 5. No evidence of bowel obstruction. Stool filled loops of large bowel suggestive of constipation. The appendix is within normal limits. 6. Fat-containing umbilical hernia . His urine culture did show Proteus in it. That has been treated. The patient is much more alert and awake today and the Ryan catheter is draining clear urine therefore we will discontinue the Ryan catheter and see if he does void check his postvoid residual and do straight cath on him if needed for a postvoid residual of 300 mL or more or if he does not urinate in the bladder scan shows over 500 ml. Continue his tamsulosin and finasteride. AMI BURTON MD Mar 26, 2018 14:54
--- NOTE | 2018-03-26 16:56 | NUR ---
End shift: Ryan Catheter was dc upon Dr Red order. To void. Bladder scan will be done upon Dr Red's order
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
--- NOTE | 2018-03-26 18:45 | NUR ---
Bladder scan: Patient unable to urinate. Bladder scan done (650ml). Straight Cath done(650ml urine output). Informed bladder training q 2 hours.Verbalized understanding
--- NOTE | 2018-03-26 20:00 | NUR ---
Asked patient if he wants to void at this time but patient denies having the urge to urinate at this time, okayed for RN to check back in 2 hours. Stated he feels very sleepy at this time but will drink more water tonight in time for his bedtime meds. Requested RN to let him have his "shut eye" for another 1-2 hours. As per previous shift's RN report last bladder scan was done @1830 and 650cc of urine was obtained from straight catheterization.
[2018-03-26 20:02] VITALS: BP 100/58; PULSE 74; RESP 20
[2018-03-26] MEDS: TAMSULOSIN (SR) 0.4 MG CAP PO SCH (21:08)
--- NOTE | 2018-03-26 21:25 | NUR ---
Patient spoke to nursing staff to have his bed alarm turned off, reiterated he does not appreciate the noise and verbalized he will call for toileting assistance and for any need for OOB activities. Also verbalized appreciation for staff teaching and concern for his safety and for preventing falls but insists to not have the alarm turned on while he is lying on his bed. Hourly and frequent rounds enforced, patient is in agreement. quirk sander and night nursing labor relations supervisor aware.
--- NOTE | 2018-03-26 22:05 | NUR ---
Patient voided 150cc of yellowish urine, bladder scan which yielded 74cc of residual urine. Bladder remains non-distended at this time. Will continue to monitor overnight.
--- NOTE | 2018-03-26 23:24 | NUR ---
Hand-off report given to new primary night RN [place], patient asleep on bed at this time. Plan of care endorsed.
[2018-03-27] MEDS: CEFTRIAXONE 1 GM/50 ML (PMX) 50 ML IVPB SCH ×2 (00:10→23:41)
[2018-03-27] MEDS: morphine 4 MG/ML VIAL IV PRN ×3 (00:31→23:50)
[2018-03-27 02:10] VITALS: BP 105/74; PULSE 77; RESP 18
[2018-03-27] MEDS: PANTOPRAZOLE (EC) 40 MG TAB PO SCH (06:12)
--- NOTE | 2018-03-27 06:59 | NUR ---
EOSS: PATIENT TRIED TO URINATE BUT UNABLE, BLADDER SCANNING PERFORMED WITH 756ML URINE INFORMED THERE'S AN ORDER FOR IN & OUT CATHETER, PATIENT REFUSED AND WANTED TO TRY TO URINATE IN THE URINAL FIRST. HE TOLD ME HE'LL CALL ME IF HE CAN'T REALLY URINATE ON HIS OWN. PATIENT CALLED AT AROUND 3AM, CAN'T TOLERATE THE PAIN ON HOLDING URINE ANYMORE. PERFORMED BLADDER SCANNING WITH 834ML AGREED TO DO STRAIGHT CATH. OUTPUT WAS 700ML AND FELT BETTER. PATIENT WA MEDICATED X 1 FOR PAIN, NEEDS MET & ATTENDED. WILL CONTINUE WITH POC.
[2018-03-27] MEDS: ACCU-CHEK XX SCH ×4 (07:20→21:00)
[2018-03-27] MEDS: INSULIN ASPART [NOVOLOG] 3 ML PEN SC SCH (07:50)
[2018-03-27 08:30] VITALS: BP 127/58; PULSE 62; RESP 18
[2018-03-27] MEDS: REPAGLINIDE 2 MG TAB PO SCH ×3 (08:42→17:59)
[2018-03-27] MEDS: INSULIN GLARGINE [LANTus] (100 UNITS/ML) SYG SC SCH (08:45)
[2018-03-27] MEDS: ASPIRIN (EC) 81 MG TAB PO SCH (08:52)
[2018-03-27] MEDS: GABAPENTIN 300 MG CAP PO SCH ×2 (08:53→21:04)
[2018-03-27] MEDS: LISINOPRIL 10 MG TAB PO SCH (08:54)
[2018-03-27] MEDS: FINASTERIDE 5 MG TAB PO SCH (08:54)
[2018-03-27] MEDS: LINAGLIPTIN 5 MG TABLET PO SCH (08:54)
[2018-03-27] MEDS: HEPARIN 5,000 UNIT/1 ML VIAL SC SCH ×2 (08:55→21:00)
--- NOTE | 2018-03-27 09:29 | CONS ---
Date/Time of Note Date/Time of Note DATE: 03/27/18 TIME: 09:24 Assessment/Plan Assessment/Plan Problems: (1) Diabetes mellitus type 2 in nonobese Status: Chronic Comment: Excellent glycemic control on a simplified regimen. (2) Hyperlipidemia associated with type 2 diabetes mellitus Status: Chronic Comment: Stable with statin therapy (3) GERD (gastroesophageal reflux disease) Status: Acute Comment: Doing well. Qualifiers: Esophagitis presence: without esophagitis Qualified Codes: K21.9 - Gastro- esophageal reflux disease without esophagitis (4) Essential hypertension Status: Chronic Comment: Adequate control at this time (5) Renal insufficiency Status: Acute Comment: At baseline. (6) BPH w urinary obs/LUTS Status: Chronic Comment: He has had variable results in terms of the bladder scans which were recorded in multiple locations throughout the chart including in the notes and also in the eyes and O's and also in the care trends section. As per Dr. Red Result Diagram: 03/27/18 0421 03/27/18 0421 Results 24hrs Laboratory Tests Test 03/26/18 12:47 03/26/18 18:02 03/26/18 21:14 03/27/18 04:21 Bedside Glucose 166 126 182 White Blood Count 11.0 H Red Blood Count 3.85 L Hemoglobin 9.7 L Hematocrit 30.7 L Mean Corpuscular 79.7 L Volume Mean Corpuscular 25.2 L Hemoglobin Mean Corpuscular 31.6 L Hemoglobin Concent Red Cell 13.3 Distribution Width Platelet Count 325 Mean Platelet Volume 9.0 Immature 0.800 H Granulocytes % Neutrophils % 68.7 Lymphocytes % 21.1 Monocytes % 6.4 Eosinophils % 2.3 Basophils % 0.7 Nucleated Red Blood 0.0 Cells % Immature 0.090 H Granulocytes # Neutrophils # 7.6 H Lymphocytes # 2.3 Monocytes # 0.7 Eosinophils # 0.3 Basophils # 0.1 Nucleated Red Blood 0.0 Cells # Sodium Level 136 Potassium Level 4.9 Chloride Level 103 Carbon Dioxide Level 25 Anion Gap 8 Blood Urea Nitrogen 20 Creatinine 1.35 H Est Glomerular 53 L Filtrat Rate mL/min Glucose Level 153 Calcium Level 9.0 Test 03/27/18 08:09 Bedside Glucose 147 Consultation Date/Type/Reason Admit Date/Time Mar 19, 2018 at 20:19 Initial Consult Date 03/21/18 Type of Consult Endocrine Reason for Consultation Diabetes mellitus type 2 Requesting Provider: CORWIN EMANUEL 24 HR Interval Summary Free Text/Dictation Patient reports he is happy with how his sugars are doing. Constitutional: no complaints Detailed Summary Endocrine: no complaints Exam/Review of Systems Vital Signs Vitals Vital Signs Date Temp Pulse Resp B/P (MAP) Pulse Ox O2 O2 Flow FiO2 Time Delivery Rate 03/27/18 98.3 77 18 105/74 95 02:10 (84) 03/26/18 Room Air 01:16 03/23/18 1.0 17:50 Intake and Output 03/26/18 03/26/18 03/27/18 1515:00 23:00 07:00 IntakeIntake Total 300 ml 320 ml 50 ml OutputOutput Total 1500 ml 800 ml BalanceBalance -1200 ml -480 ml 50 ml Exam Constitutional: alert, oriented Respiratory: clear to auscultation, normal air movement Cardiovascular: regular rate and rhythm, nl pulses Extremities: normal pulses Medications Medications Current Medications Ondansetron HCl (Zofran Inj) 4 mg Q6H PRN IV NAUSEA AND/OR VOMITING Last administered on 03/26/18at 06:53; Admin Dose 4 MG; Start 03/19/18 at 20:30 Metoclopramide HCl (Reglan) 10 mg Q6H PRN IV NAUSEA AND/OR VOMITING; Start 03/19/18 at 20:30 Albuterol (Proventil 0.083% (Neb)) 2.5 mg Q2H RESP THERAPY PRN NEB SHORTNESS OF BREATH; Start 03/19/18 at 20:30 Ipratropium [place] (Atrovent 0.02% (Neb)) 0.5 mg Q2H RESP THERAPY PRN NEB SHORTNESS OF BREATH; Start 03/19/18 at 20:30 Acetaminophen (Tylenol Liquid) 650 mg Q6H PRN PO PAIN LEVEL 1-3 OR FEVER Last administered on 03/25/18at 21:52; Admin Dose 650 MG; Start 03/19/18 at 20:30 Docusate Sodium (Colace) 100 mg Q12H PRN PO CONSTIPATION; Start 03/19/18 at 20:30 Bisacodyl (Dulcolax) 5 mg DAILY PRN PO CONSTIPATION; Start 03/19/18 at 20:30 Aspirin (Halfprin) 81 mg DAILY PO Last administered on 03/27/18at 08:52; Admin Dose 81 MG; Start 03/20/18 at 09:00 Insulin Aspart (Novolog Insulin Pen) NOVOLOG *MODERATE* ALGORITHM WITH MEALS BEDTIME SC Last administered on 03/26/18at 12:53; Admin Dose 2 UNIT; Start 03/20/18 at 11:30 Miscellaneous Information 1 ea NOTE XX ; Start 03/20/18 at 10:30 Glucose (Glutose) 15 gm Q15M PRN PO DECREASED GLUCOSE; Start 03/20/18 at 10:30 Glucose (Glutose) 22.5 gm Q15M PRN PO DECREASED GLUCOSE; Start 03/20/18 at 10:30 Dextrose (D50w Syringe) 25 ml Q15M PRN IV DECREASED GLUCOSE; Start 03/20/18 at 10:30 Dextrose (D50w Syringe) 50 ml Q15M PRN IV DECREASED GLUCOSE; Start 03/20/18 at 10:30 Glucagon (Glucagen) 1 mg Q15M PRN IM DECREASED GLUCOSE; Start 03/20/18 at 10:30 Glucose (Glutose) 15 gm Q15M PRN BUCCAL DECREASED GLUCOSE Last administered on 03/22/18at 21:35; Admin Dose 15 GM; Start 03/20/18 at 10:30 Ceftriaxone Sodium 50 ml @ 100 mls/hr Q24H IVPB Last administered on 03/27/18at 00:10; Admin Dose 100 MLS/HR; Start 03/21/18 at 00:00; Stop 03/30/18 at 23:59 Gabapentin (Neurontin) 300 mg QHS PO Last administered on 03/26/18at 21:08; Admin Dose 300 MG; Start 03/21/18 at 00:00 Tramadol HCl (Ultram) 50 mg Q6H PRN PO PAIN Last administered on 03/21/18at 00:24; Admin Dose 50 MG; Start 03/21/18 at 00:00 Tamsulosin HCl (Flomax) 0.4 mg DAILY@2100 PO Last administered on 03/26/18at 21:08; Admin Dose 0.4 MG; Start 03/21/18 at 21:00 Miscellaneous Information (* Miscellaneous Pharmacy Order) D50 1/2 AMP + 10 UNITS... ONCE XX ; Start 03/21/18 at 22:00 Gabapentin (Neurontin) 300 mg DAILY PO Last administered on 03/27/18 08:53; Admin Dose 300 MG; Start 03/22/18 at 14:30 Heparin Sodium (Porcine) (Heparin (5000 Units/1ml)) 5,000 unit Q12 SC ; Start 03/22/18 at 21:00 Pantoprazole (Protonix Tab) 40 mg DAILY@06 PO Last administered on 03/27/18 06:12; Admin Dose 40 MG; Start 03/23/18 at 06:00 Linagliptin (Tradjenta) 5 mg DAILY PO Last administered on 03/27/18 08:54; Admin Dose 5 MG; Start 03/22/18 at 17:00 Carvedilol (Coreg) 12.5 mg BID PO Last administered on 03/27/18 08:54; Admin Dose 12.5 MG; Start 03/23/18 at 21:00 Finasteride (Proscar) 5 mg DAILY PO Last administered on 03/27/18 08:54; Admin Dose 5 MG; Start 03/24/18 at 13:30 Lisinopril (Zestril) 10 mg DAILY PO Last administered on 03/27/18 08:54; Admin Dose 10 MG; Start 03/24/18 at 13:30 Insulin Glargine (Lantus) 42 units DAILY@0800 SC Last administered on 03/27/18 08:45; Admin Dose 42 UNITS; Start 03/26/18 at 08:00 Repaglinide (Prandin) 2 mg WITH MEALS PO Last administered on 03/27/18 08:42; Admin Dose 2 MG; Start 03/25/18 at 17:55 Diagnostic Test (Pha) (Accu-Chek) 1 ea AC MEALS AND BEDTIME XX Last administered on 03/27/18 07:20; Admin Dose 1 EA; Start 03/25/18 at 17:25 Morphine Sulfate (morphine) 2 mg Q4H PRN IV PAIN LEVEL 7-10 Last administered on 03/27/18 00:31; Admin Dose 2 MG; Start 03/26/18 at 02:30 JEAN TRAYLOR MD Mar 27, 2018 09:29
--- NOTE | 2018-03-27 10:38 | CONS ---
Date/Time of Note Date/Time of Note DATE: 03/27/18 TIME: 10:32 Consult Date/Type/Reason Admit Date/Time Mar 19, 2018 at 20:19 Initial Consult Date 03/24/18 Type of Consultation: Urology Reason for Consultation Urinary retention and high postvoid residual. Requesting Provider: CORWIN EMANUEL The patient is alert and has not been able to urinate and needed in and out catheterization. Presently he states that he is starting to urinate. Objective Vital Signs Date Temp Pulse Resp B/P (MAP) Pulse Ox O2 O2 Flow FiO2 Time Delivery Rate 03/27/18 98.3 62 18 127/58 95 08:30 (81) 03/26/18 Room Air 01:16 03/23/18 1.0 17:50 Intake and Output 03/26/18 03/26/18 03/27/18 1515:00 23:00 07:00 IntakeIntake Total 300 ml 320 ml 50 ml OutputOutput Total 1500 ml 800 ml BalanceBalance -1200 ml -480 ml 50 ml Exam Patient has had multiple in and out catheterization and the volume drained ranged between 600-750 mL. There are times that he refused to be catheterized. Results/Medications Result Diagram: 03/27/18 0421 03/27/18 0421 Results 24 hrs Laboratory Tests Test 03/26/18 12:47 03/26/18 18:02 03/26/18 21:14 03/27/18 04:21 Bedside Glucose 166 126 182 White Blood Count 11.0 H Red Blood Count 3.85 L Hemoglobin 9.7 L Hematocrit 30.7 L Mean Corpuscular 79.7 L Volume Mean Corpuscular 25.2 L Hemoglobin Mean Corpuscular 31.6 L Hemoglobin Concent Red Cell 13.3 Distribution Width Platelet Count 325 Mean Platelet Volume 9.0 Immature 0.800 H Granulocytes % Neutrophils % 68.7 Lymphocytes % 21.1 Monocytes % 6.4 Eosinophils % 2.3 Basophils % 0.7 Nucleated Red Blood 0.0 Cells % Immature 0.090 H Granulocytes # Neutrophils # 7.6 H Lymphocytes # 2.3 Monocytes # 0.7 Eosinophils # 0.3 Basophils # 0.1 Nucleated Red Blood 0.0 Cells # Sodium Level 136 Potassium Level 4.9 Chloride Level 103 Carbon Dioxide Level 25 Anion Gap 8 Blood Urea Nitrogen 20 Creatinine 1.35 H Est Glomerular 53 L Filtrat Rate mL/min Glucose Level 153 Calcium Level 9.0 Test 03/27/18 08:09 Bedside Glucose 147 Medications Current Medications Ondansetron HCl (Zofran Inj) 4 mg Q6H PRN IV NAUSEA AND/OR VOMITING Last administered on 03/26/18at 06:53; Admin Dose 4 MG; Start 03/19/18 at 20:30 Metoclopramide HCl (Reglan) 10 mg Q6H PRN IV NAUSEA AND/OR VOMITING; Start 03/19/18 at 20:30 Albuterol (Proventil 0.083% (Neb)) 2.5 mg Q2H RESP THERAPY PRN NEB SHORTNESS OF BREATH; Start 03/19/18 at 20:30 Ipratropium [place] (Atrovent 0.02% (Neb)) 0.5 mg Q2H RESP THERAPY PRN NEB SHORTNESS OF BREATH; Start 03/19/18 at 20:30 Acetaminophen (Tylenol Liquid) 650 mg Q6H PRN PO PAIN LEVEL 1-3 OR FEVER Last administered on 03/25/18at 21:52; Admin Dose 650 MG; Start 03/19/18 at 20:30 Docusate Sodium (Colace) 100 mg Q12H PRN PO CONSTIPATION; Start 03/19/18 at 20:30 Bisacodyl (Dulcolax) 5 mg DAILY PRN PO CONSTIPATION; Start 03/19/18 at 20:30 Aspirin (Halfprin) 81 mg DAILY PO Last administered on 03/27/18at 08:52; Admin Dose 81 MG; Start 03/20/18 at 09:00 Miscellaneous Information 1 ea NOTE XX ; Start 03/20/18 at 10:30 Glucose (Glutose) 15 gm Q15M PRN PO DECREASED GLUCOSE; Start 03/20/18 at 10:30 Glucose (Glutose) 22.5 gm Q15M PRN PO DECREASED GLUCOSE; Start 03/20/18 at 10:30 Dextrose (D50w Syringe) 25 ml Q15M PRN IV DECREASED GLUCOSE; Start 03/20/18 at 10:30 Dextrose (D50w Syringe) 50 ml Q15M PRN IV DECREASED GLUCOSE; Start 03/20/18 at 10:30 Glucagon (Glucagen) 1 mg Q15M PRN IM DECREASED GLUCOSE; Start 03/20/18 at 10:30 Glucose (Glutose) 15 gm Q15M PRN BUCCAL DECREASED GLUCOSE Last administered on 03/22/18at 21:35; Admin Dose 15 GM; Start 03/20/18 at 10:30 Ceftriaxone Sodium 50 ml @ 100 mls/hr Q24H IVPB Last administered on 03/27/18 00:10; Admin Dose 100 MLS/HR; Start 03/21/18 at 00:00; Stop 03/30/18 at 23:59 Gabapentin (Neurontin) 300 mg QHS PO Last administered on 03/26/18 21:08; Admin Dose 300 MG; Start 03/21/18 at 00:00 Tramadol HCl (Ultram) 50 mg Q6H PRN PO PAIN Last administered on 03/21/18 00:24; Admin Dose 50 MG; Start 03/21/18 at 00:00 Tamsulosin HCl (Flomax) 0.4 mg DAILY@2100 PO Last administered on 03/26/18 21:08; Admin Dose 0.4 MG; Start 03/21/18 at 21:00 Miscellaneous Information (* Miscellaneous Pharmacy Order) D50 1/2 AMP + 10 UNITS... ONCE XX ; Start 03/21/18 at 22:00 Gabapentin (Neurontin) 300 mg DAILY PO Last administered on 03/27/18 08:53; Admin Dose 300 MG; Start 03/22/18 at 14:30 Heparin Sodium (Porcine) (Heparin (5000 Units/1ml)) 5,000 unit Q12 SC ; Start 03/22/18 at 21:00 Pantoprazole (Protonix Tab) 40 mg DAILY@06 PO Last administered on 03/27/18at 06:12; Admin Dose 40 MG; Start 03/23/18 at 06:00 Linagliptin (Tradjenta) 5 mg DAILY PO Last administered on 03/27/18 08:54; Admin Dose 5 MG; Start 03/22/18 at 17:00 Carvedilol (Coreg) 12.5 mg BID PO Last administered on 03/27/18 08:54; Admin Dose 12.5 MG; Start 03/23/18 at 21:00 Finasteride (Proscar) 5 mg DAILY PO Last administered on 03/27/18 08:54; Admin Dose 5 MG; Start 03/24/18 at 13:30 Lisinopril (Zestril) 10 mg DAILY PO Last administered on 03/27/18at 08:54; Admin Dose 10 MG; Start 03/24/18 at 13:30 Insulin Glargine (Lantus) 42 units DAILY@0800 SC Last administered on 03/27/18at 08:45; Admin Dose 42 UNITS; Start 03/26/18 at 08:00 Repaglinide (Prandin) 2 mg WITH MEALS PO Last administered on 03/27/18at 08:42; Admin Dose 2 MG; Start 03/25/18 at 17:55 Diagnostic Test (Pha) (Accu-Chek) 1 ea AC MEALS AND BEDTIME XX Last administered on 03/27/18at 07:20; Admin Dose 1 EA; Start 03/25/18 at 17:25 Morphine Sulfate (morphine) 2 mg Q4H PRN IV PAIN LEVEL 7-10 Last administered on 03/27/18at 00:31; Admin Dose 2 MG; Start 03/26/18 at 02:30 Assessment/Plan Chief Complaint/Hosp Course 63-year-old male with a history of diabetes mellitus ,chronic kidney disease, hypertension and degenerative disc disease came to the emergency department with multiple complaints. Patient reports that he has been having dysuria. He states the urine smells foul. Patient also reports that his diabetes has been poorly controlled. He reports that he has been compliant with his insulin regimen of Lantus 60 units daily and NovoLog 25-35 units at mealtime. However he reports that despite this his blood sugars are running from the 300s-400s. He reports chronic back pain. Renal ultrasound done on admission showed urinary retention with the bladder distended. Patient underwent a CT scan of the abdomen and pelvis after that and that showed : 1. No gross renal/ureteric calculi. No evidence of obstructive uropathy. There is nonspecific bilateral perinephric fat stranding. 2. MARKED IRREGULAR THICKENING OF THE DURAN OF THE BLADDER WITH ADJACENT FATTY STRANDING. ALTHOUGH FINDINGS COULD REPRESENT SEVERE CYSTITIS, CANNOT EXCLUDE POSSIBILITY OF MALIGNANCY. RECOMMEND DIRECT VISUALIZATION. SEVERAL PELVIC NONSPECIFIC LYMPH NODES AND INGUINAL LYMPH NODES, WHICH MAY BE REACTIVE. 3. HETEROGENEOUS APPEARANCE OF THE PROSTATE GLAND WHICH IS ENLARGED. RECOMMEND CORRELATION WITH PSA LEVELS. THERE ARE SEVERAL LOW ATTENUATION AREAS WITHIN THE PROSTATE AND UNDERLYING PROSTATE INFECTION IS ALSO WITHIN THE DIFFERENTIAL. RECOMMEND FOLLOW-UP CONTRAST-ENHANCED CT SCAN OF THE PELVIS. 4. SEVERAL PERIRECTAL LYMPH NODES SUBTLE THICKENING OF THE DURAN OF THE RECTUM. RECOMMEND FOLLOW-UP COLONOSCOPY TO EXCLUDE THE POSSIBILITY OF RECTAL MALIGNANCY. 5. No evidence of bowel obstruction. Stool filled loops of large bowel suggestive of constipation. The appendix is within normal limits. 6. Fat-containing umbilical hernia . His urine culture did show Proteus in it. That has been treated. The patient continues to have high postvoid residual and urinary retention. He needed in and out catheterization multiple times and at one time he refused it. I had a good discussion with him in the presence of his nurse. I explained to him the importance of not allowing the bladder to be distended and the need for him to learn to do self intermittent catheterization. He stated that he is done that 2 years before when he was at [facility]. He states that he knows how to do it so I told him to do it here in front of the nurse so she could check his technique and this way he could continue to do it at home. I discussed with him that his prostate is enlarged but I do not think that is the reason for his urinary retention. The retention is most likely related to his neurogenic diabetic bladder. One could do a TURP on him but he will continue to have a high postvoid residual. Therefore the best option would be for him to learn and continue to do self intermittent catheterization. AMI BURTON MD Mar 27, 2018 10:38
[2018-03-27] MEDS ORDERED: TAMS0.4C2 PO (12:14)
[2018-03-27] MEDS ORDERED: FINA5TAB PO (12:14)
--- NOTE | 2018-03-27 12:15 | PDOCDIS ---
Discharge Instructions CONDITION [id number] Patient Condition: [id number] Good HOME CARE INSTRUCTIONS: [id number] Special Diet: [id number] CARB CONTROLLED ACTIVITY: [id number] Activity Restrictions: [id number] No Restrictions FOLLOW UP/APPOINTMENTS Follow-up Plan Follow-up with your PCP in 1-2 weeks, follow-up with urology CORWIN EMANUEL Mar 27, 2018 12:15
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
--- NOTE | 2018-03-27 15:49 | NUR ---
SPOKED WITH AFSHAN ABOUT HOME HEALTH ARRANGEMENTS.AFSHAN HAD INFORMED RN SHE IS IN THE PROCESS OF CALLING / REFERRING PATIENT TO HOME HEALTH AGENCIES .
[2018-03-27] MEDS: ACETAMINOPHEN 650MG/20.3ML CUP PO PRN (15:56)
[2018-03-27 16:31] VITALS: BP 146/70; PULSE 72; RESP 18
--- NOTE | 2018-03-27 16:32 | NUR ---
HOME HEALTH ORDER CALLED [facility] AT [phone] - UNABLE TO LEAVE MESSAGE -MAILBOX FULL. ATTEMPTED TO CALL SEVERAL TIMES WITH SAME RECORDING CALLED [facility] AT [phone] - LEFT MSG CALLED [facility] AT [phone] - UNABLE TO ACCEPT DUE TO PT IS CAPITATED TO [facility] CALLED [facility] THREE TIMES WITH NO RETURN CALL AT [phone] CALLED [facility] AT [phone] - LEFT MESSAGE AND SENT MESSAGE TO [facility] - ADM WELL CALLED [facility] AT [phone] - ALSO LEFT MESSAGE FOR ADM - [facility] - NO RETURN CALL CALLED [facility] AT [phone] - LEFT MESSAGE ON VOICEMAIL TWICE WITH NO RETURN CALL CALLED [facility] AT [phone] - SPOKE WITH JOSE MARIA BUT SHE SAID THAT SHE WILL HAVE SOMEONE FROM THE [facility] OFFICE CALL ME BACK SPOKE WITH ROLLER EMBOSSER FROM [employer] AT [phone] - INFORMED HER THE DIFFICULTY OF GETTING HH FOR THIS PATIENT - OF WHICH SHE GAVE ME MORE AGENCIES TO CALL - SHE WILL GIVE AUTH ONCE THERES AN ACCEPTING AGENCY. PENDING DISCHARGE TODAY. INFORMED CHARGE NURSE DEENA - TO HAVE NURSE TEACH PATIENT [facility] - STRAIGHT CATH.
--- NOTE | 2018-03-27 17:00 | NUR ---
RN NOTE Self catheterization attempted by patient with coaching. Patient sat at edge of bed. Patient had difficulty in putting on gloves and maintaining sterile field. Explained to patient risk of infection, verbalized understanding. Patient was able to self cath with much coaching. States he is not yet confident enough and would need teaching reinforcement. Bladder scan at 662, output at 700ml. Will continue to monitor.
--- NOTE | 2018-03-27 17:30 | NUR ---
RN NOTE/BLADDER SCAN Bladder scans were NOT post void as patient attempted to void but was unsuccessful. Two bladder scans and straight cath recorded as these were the only times that the patient consented: 1200 Scan at 999, output clear yellow urine, 1000ml; teaching done, patient verbalized understanding 1700 Scan at 662, output clear yellow urine, 700ml, patient did self cath with much teaching. Will continue to monitor.
--- NOTE | 2018-03-27 18:51 | NUR ---
RN NOTE Patient resting in bed. Verbalized no concerns at this time. No SOB or acute distress noted. Call light within reach. MD aware of patient status. Will continue to monitor until end of shift and endorse report, pending input/output, pending discharge and pending orders to incoming RN for continuity of care.
[2018-03-27 19:49] VITALS: BP 123/63; PULSE 65; RESP 20
[2018-03-27] MEDS: TAMSULOSIN (SR) 0.4 MG CAP PO SCH (21:04)
--- NOTE | 2018-03-27 21:31 | CONS ---
Date/Time of Note Date/Time of Note DATE: 03/27/18 TIME: 21:28 Assessment/Plan Assessment/Plan Assessment/Plan 1. acute hyperkalemia due to RATNA- resolved 2. Hyponatremia due to hypovolemic Hyponatremia from DKA- Resolved 3. acute Kidney injury on CKD III due to ATN + prerenal azotemia- Improving 4 Acute diabeitc ketoacidosis due to UTI + ? complaince- resolved 5. 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 H/o HTN 8. H/o HL Plan: BUN/Cr 28/03.35, K normal , After hoyos discontinued, pt continues to have urinary retention, Urology has been following Follow up with me in clinic in 1-2 week upon discharge will follow up Result Diagram: 03/27/18 0421 03/27/18 0421 Results 24hrs Laboratory Tests Test 03/27/18 04:21 03/27/18 08:09 03/27/18 12:37 03/27/18 17:41 White Blood Count 11.0 H Red Blood Count 3.85 L Hemoglobin 9.7 L Hematocrit 30.7 L Mean Corpuscular 79.7 L Volume Mean Corpuscular 25.2 L Hemoglobin Mean Corpuscular 31.6 L Hemoglobin Concent Red Cell 13.3 Distribution Width Platelet Count 325 Mean Platelet Volume 9.0 Immature 0.800 H Granulocytes % Neutrophils % 68.7 Lymphocytes % 21.1 Monocytes % 6.4 Eosinophils % 2.3 Basophils % 0.7 Nucleated Red Blood 0.0 Cells % Immature 0.090 H Granulocytes # Neutrophils # 7.6 H Lymphocytes # 2.3 Monocytes # 0.7 Eosinophils # 0.3 Basophils # 0.1 Nucleated Red Blood 0.0 Cells # Sodium Level 136 Potassium Level 4.9 Chloride Level 103 Carbon Dioxide Level 25 Anion Gap 8 Blood Urea Nitrogen 20 Creatinine 1.35 H Est Glomerular 53 L Filtrat Rate mL/min Glucose Level 153 Calcium Level 9.0 Bedside Glucose 147 106 125 Test 03/27/18 21:03 Bedside Glucose 126 Consultation Date/Type/Reason Admit Date/Time Mar 19, 2018 at 20:19 Initial Consult Date 03/19/2018 Type of Consult NEPHROLOGY Requesting Provider: CORWIN EMANUEL 24 HR Interval Summary Free Text/Dictation pt continues to have urinary retention , BUN/Cr 20/1.35, BP stable Exam/Review of Systems Vital Signs Vitals Vital Signs Date Temp Pulse Resp B/P (MAP) Pulse Ox O2 O2 Flow FiO2 Time Delivery Rate 03/27/18 98.3 65 20 123/63 98 Room Air 19:49 (83) 03/23/18 1.0 17:50 Intake and Output 03/26/18 03/26/18 03/27/18 1515:00 23:00 07:00 IntakeIntake Total 300 ml 320 ml 50 ml OutputOutput Total 1500 ml 800 ml BalanceBalance -1200 ml -480 ml 50 ml Exam Constitutional: alert, oriented Respiratory: clear to auscultation Cardiovascular: regular rate and rhythm Gastrointestinal: soft; No distended, + hoyos catheter Musculoskeletal: nl extremities to in Medications Medications Current Medications Ondansetron HCl (Zofran Inj) 4 mg Q6H PRN IV NAUSEA AND/OR VOMITING Last administered on 03/26/18at 06:53; Admin Dose 4 MG; Start 03/19/18 at 20:30 Metoclopramide HCl (Reglan) 10 mg Q6H PRN IV NAUSEA AND/OR VOMITING; Start 03/19/18 at 20:30 Albuterol (Proventil 0.083% (Neb)) 2.5 mg Q2H RESP THERAPY PRN NEB SHORTNESS OF BREATH; Start 03/19/18 at 20:30 Ipratropium [place] (Atrovent 0.02% (Neb)) 0.5 mg Q2H RESP THERAPY PRN NEB SHORTNESS OF BREATH; Start 03/19/18 at 20:30 Acetaminophen (Tylenol Liquid) 650 mg Q6H PRN PO PAIN LEVEL 1-3 OR FEVER Last administered on 03/27/18at 15:56; Admin Dose 650 MG; Start 03/19/18 at 20:30 Docusate Sodium (Colace) 100 mg Q12H PRN PO CONSTIPATION; Start 03/19/18 at 20:30 Bisacodyl (Dulcolax) 5 mg DAILY PRN PO CONSTIPATION; Start 03/19/18 at 20:30 Aspirin (Halfprin) 81 mg DAILY PO Last administered on 03/27/18at 08:52; Admin Dose 81 MG; Start 03/20/18 at 09:00 Miscellaneous Information 1 ea NOTE XX ; Start 03/20/18 at 10:30 Glucose (Glutose) 15 gm Q15M PRN PO DECREASED GLUCOSE; Start 03/20/18 at 10:30 Glucose (Glutose) 22.5 gm Q15M PRN PO DECREASED GLUCOSE; Start 03/20/18 at 10:30 Dextrose (D50w Syringe) 25 ml Q15M PRN IV DECREASED GLUCOSE; Start 03/20/18 at 10:30 Dextrose (D50w Syringe) 50 ml Q15M PRN IV DECREASED GLUCOSE; Start 03/20/18 at 10:30 Glucagon (Glucagen) 1 mg Q15M PRN IM DECREASED GLUCOSE; Start 03/20/18 at 10:30 Glucose (Glutose) 15 gm Q15M PRN BUCCAL DECREASED GLUCOSE Last administered on 03/22/18at 21:35; Admin Dose 15 GM; Start 03/20/18 at 10:30 Ceftriaxone Sodium 50 ml @ 100 mls/hr Q24H IVPB Last administered on 03/27/18at 00:10; Admin Dose 100 MLS/HR; Start 03/21/18 at 00:00; Stop 03/30/18 at 23:59 Gabapentin (Neurontin) 300 mg QHS PO Last administered on 03/27/18at 21:04; Admin Dose 300 MG; Start 03/21/18 at 00:00 Tramadol HCl (Ultram) 50 mg Q6H PRN PO PAIN Last administered on 03/21/18at 00:24; Admin Dose 50 MG; Start 03/21/18 at 00:00 Tamsulosin HCl (Flomax) 0.4 mg DAILY@2100 PO Last administered on 03/27/18at 21:04; Admin Dose 0.4 MG; Start 03/21/18 at 21:00 Miscellaneous Information (* Miscellaneous Pharmacy Order) D50 1/2 AMP + 10 UNITS... ONCE XX ; Start 03/21/18 at 22:00 Gabapentin (Neurontin) 300 mg DAILY PO Last administered on 03/27/18at 08:53; Admin Dose 300 MG; Start 03/22/18 at 14:30 Heparin Sodium (Porcine) (Heparin (5000 Units/1ml)) 5,000 unit Q12 SC ; Start 03/22/18 at 21:00 Pantoprazole (Protonix Tab) 40 mg DAILY@06 PO Last administered on 03/27/18at 06:12; Admin Dose 40 MG; Start 03/23/18 at 06:00 Linagliptin (Tradjenta) 5 mg DAILY PO Last administered on 03/27/18 08:54; Admin Dose 5 MG; Start 03/22/18 at 17:00 Carvedilol (Coreg) 12.5 mg BID PO Last administered on 03/27/18 21:04; Admin Dose 12.5 MG; Start 03/23/18 at 21:00 Finasteride (Proscar) 5 mg DAILY PO Last administered on 03/27/18 08:54; Admin Dose 5 MG; Start 03/24/18 at 13:30 Lisinopril (Zestril) 10 mg DAILY PO Last administered on 03/27/18 08:54; Admin Dose 10 MG; Start 03/24/18 at 13:30 Insulin Glargine (Lantus) 42 units DAILY@0800 SC Last administered on 03/27/18at 08:45; Admin Dose 42 UNITS; Start 03/26/18 at 08:00 Repaglinide (Prandin) 2 mg WITH MEALS PO Last administered on 03/27/18 17:59; Admin Dose 2 MG; Start 03/25/18 at 17:55 Diagnostic Test (Pha) (Accu-Chek) 1 ea AC MEALS AND BEDTIME XX Last administered on 03/27/18 17:59; Admin Dose 1 EA; Start 03/25/18 at 17:25 Morphine Sulfate (morphine) 2 mg Q4H PRN IV PAIN LEVEL 7-10 Last administered on 03/27/18 15:56; Admin Dose 2 MG; Start 03/26/18 at 02:30 TALITA DICKENS MD Mar 27, 2018 21:30
--- NOTE | 2018-03-27 23:00 | NUR ---
NURSING: PATIENT IN THE BATHROOM TRYING TO VOID, UNABLE BLADDER SCAN PERFORMED WITH 756ML URINE. INFORMED WE HAVE TO DO STRAIGHT CATH AND HE NEEDS TO DO IT HIMSELF WITH SUPERVISION. PATIENT REFUSED WANTED STRAIGHT CATH TO BE DONE LATER. WILL CHECK ON PATIENT.
--- NOTE | 2018-03-27 23:30 | NUR ---
NURSING: CHECKED PATIENT IF HE'S READY TO BE CATHETERIZED, HE STATED NOT YET, HE WILL ASK FOR PAIN MEDS BEFORE CATHETERIZATION. WILL CHECK PATIENT AGAIN.
[2018-03-27] MEDS: ONDANSETRON 4 MG INJ IV PRN (23:58)
--- NOTE | 2018-03-28 | NUR ---
NURSING: PATIENT TRIED TO URINATE AGAIN PRIOR CATHETERIZATION, STILL UNABLE. PREPARED SELF CATHETERIZATION TRAY FOR THE PATIENT ON BEDSIDE TABLE. INSTRUCTED TO CLEAN URETHRA WITH BETADINE FIRST, REMINDED TO PUT LUBRICANT ON THE TIP OF THE CATHETER PRIOR INSERTION AND USE THE STERILE GLOVES TO PREVENT INFECTION. PATIENT WAS ABLE TO SELF CATHETERIZE WITHOUT DIFFICULTY AND TOLERATED PROCEDURE WELL.
[2018-03-28 02:36] VITALS: BP 128/65; PULSE 65; RESP 17
--- NOTE | 2018-03-28 06:26 | NUR ---
EOSS: PATIENT STABLE DURING SHIFT, MEDICATED X 1 FOR PAIN WITH RELIEF. PATIENT WAS ABLE TO DO SELF CATHETERIZATION SUCCESSFULLY. WILL CONTINUE TEACHING AND RETURN DEMONSTRATION TO INCREASE LEARNING. WILL CONTINUE WITH POC.
[2018-03-28] MEDS: PANTOPRAZOLE (EC) 40 MG TAB PO SCH (07:00)
[2018-03-28 08:42] VITALS: BP 149/68; PULSE 63; RESP 14
[2018-03-28] MEDS: ACCU-CHEK XX SCH ×2 (08:52→12:50)
[2018-03-28] MEDS: HEPARIN 5,000 UNIT/1 ML VIAL SC SCH (09:00)
[2018-03-28] MEDS ORDERED: INSULIN GLARGINE [LANTus] (100 UNITS/ML) SYG SC ONE (09:00)
[2018-03-28] MEDS: FINASTERIDE 5 MG TAB PO SCH (09:21)
[2018-03-28] MEDS: GABAPENTIN 300 MG CAP PO SCH (09:22)
[2018-03-28] MEDS: ASPIRIN (EC) 81 MG TAB PO SCH (09:23)
[2018-03-28] MEDS: LINAGLIPTIN 5 MG TABLET PO SCH (09:23)
[2018-03-28] MEDS: LISINOPRIL 10 MG TAB PO SCH (09:24)
[2018-03-28] MEDS: morphine 4 MG/ML VIAL IV PRN ×2 (09:32→14:14)
--- NOTE | 2018-03-28 10:36 | CONS ---
Date/Time of Note Date/Time of Note DATE: 03/28/18 TIME: 10:36 Assessment/Plan Assessment/Plan Assessment/Plan 1. acute hyperkalemia due to RATNA- resolved 2. Hyponatremia due to hypovolemic Hyponatremia from DKA- Resolved 3. acute Kidney injury on CKD III due to ATN + prerenal azotemia- Improving 4 Acute diabeitc ketoacidosis due to UTI + ? complaince- resolved 5. 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 H/o HTN 8. H/o HL Plan: BUN/Cr 28/03.35, K normal , After hoyos discontinued, pt continues to have urinary retention, Urology has been following Follow up with me in clinic in 1-2 week upon discharge will follow up Result Diagram: 03/27/18 0421 03/27/18 0421 Results 24hrs Laboratory Tests Test 03/27/18 12:37 03/27/18 17:41 03/27/18 21:03 03/28/18 08:51 Bedside Glucose 106 125 126 67 L Consultation Date/Type/Reason Admit Date/Time Mar 19, 2018 at 20:19 Initial Consult Date 03/19/2018 Type of Consult NEPHROLOGY Requesting Provider: CORWIN EMANUEL Exam/Review of Systems Vital Signs Vitals Vital Signs Date Temp Pulse Resp B/P (MAP) Pulse Ox O2 O2 Flow FiO2 Time Delivery Rate 03/28/18 98.0 63 14 149/68 96 Room Air 08:42 (95) Intake and Output 03/27/18 03/27/18 03/28/18 1515:00 23:00 07:00 IntakeIntake Total 760 ml 320 ml 50 ml OutputOutput Total 1000 ml 700 ml BalanceBalance -240 ml -380 ml 50 ml Exam Constitutional: alert, awake, oriented x 3 Respiratory: clear to auscultation Cardiovascular: regular rate and rhythm Gastrointestinal: soft; No distended, + hoyos catheter Musculoskeletal: nl extremities to in Medications Medications Current Medications Ondansetron HCl (Zofran Inj) 4 mg Q6H PRN IV NAUSEA AND/OR VOMITING Last a dministered on 03/27/18at 23:58; Admin Dose 4 MG; Start 03/19/18 at 20:30 Metoclopramide HCl (Reglan) 10 mg Q6H PRN IV NAUSEA AND/OR VOMITING; Start 03/19/18 at 20:30 Albuterol (Proventil 0.083% (Neb)) 2.5 mg Q2H RESP THERAPY PRN NEB SHORTNESS OF BREATH; Start 03/19/18 at 20:30 Ipratropium [place] (Atrovent 0.02% (Neb)) 0.5 mg Q2H RESP THERAPY PRN NEB SHORTNESS OF BREATH; Start 03/19/18 at 20:30 Acetaminophen (Tylenol Liquid) 650 mg Q6H PRN PO PAIN LEVEL 1-3 OR FEVER Last administered on 03/27/18at 15:56; Admin Dose 650 MG; Start 03/19/18 at 20:30 Docusate Sodium (Colace) 100 mg Q12H PRN PO CONSTIPATION; Start 03/19/18 at 20:30 Bisacodyl (Dulcolax) 5 mg DAILY PRN PO CONSTIPATION; Start 03/19/18 at 20:30 Aspirin (Halfprin) 81 mg DAILY PO Last administered on 03/28/18at 09:23; Admin Dose 81 MG; Start 03/20/18 at 09:00 Miscellaneous Information 1 ea NOTE XX ; Start 03/20/18 at 10:30 Glucose (Glutose) 15 gm Q15M PRN PO DECREASED GLUCOSE; Start 03/20/18 at 10:30 Glucose (Glutose) 22.5 gm Q15M PRN PO DECREASED GLUCOSE; Start 03/20/18 at 10:30 Dextrose (D50w Syringe) 25 ml Q15M PRN IV DECREASED GLUCOSE; Start 03/20/18 at 10:30 Dextrose (D50w Syringe) 50 ml Q15M PRN IV DECREASED GLUCOSE; Start 03/20/18 at 10:30 Glucagon (Glucagen) 1 mg Q15M PRN IM DECREASED GLUCOSE; Start 03/20/18 at 10:30 Glucose (Glutose) 15 gm Q15M PRN BUCCAL DECREASED GLUCOSE Last administered on 03/22/18at 21:35; Admin Dose 15 GM; Start 03/20/18 at 10:30 Ceftriaxone Sodium 50 ml @ 100 mls/hr Q24H IVPB Last administered on 03/27/18at 23:41; Admin Dose 100 MLS/HR; Start 03/21/18 at 00:00; Stop 03/30/18 at 23:59 Gabapentin (Neurontin) 300 mg QHS PO Last administered on 03/27/18 21:04; Admin Dose 300 MG; Start 03/21/18 at 00:00 Tramadol HCl (Ultram) 50 mg Q6H PRN PO PAIN Last administered on 03/21/18at 00:24; Admin Dose 50 MG; Start 03/21/18 at 00:00 Tamsulosin HCl (Flomax) 0.4 mg DAILY@2100 PO Last administered on 03/27/18 21:04; Admin Dose 0.4 MG; Start 03/21/18 at 21:00 Miscellaneous Information (* Miscellaneous Pharmacy Order) D50 03/10 AMP + 10 UNITS... ONCE XX ; Start 03/21/18 at 22:00 Gabapentin (Neurontin) 300 mg DAILY PO Last administered on 03/28/18at 09:22; Admin Dose 300 MG; Start 03/22/18 at 14:30 Heparin Sodium (Porcine) (Heparin (5000 Units/1ml)) 5,000 unit Q12 SC ; Start 03/22/18 at 21:00 Pantoprazole (Protonix Tab) 40 mg DAILY@06 PO Last administered on 03/28/18 07:00; Admin Dose 40 MG; Start 03/23/18 at 06:00 Linagliptin (Tradjenta) 5 mg DAILY PO Last administered on 03/27/18at 08:54; Admin Dose 5 MG; Start 03/22/18 at 17:00 Carvedilol (Coreg) 12.5 mg BID PO Last administered on 03/28/18 09:23; Admin Dose 12.5 MG; Start 03/23/18 at 21:00 Finasteride (Proscar) 5 mg DAILY PO Last administered on 03/28/18 09:21; Admin Dose 5 MG; Start 03/24/18 at 13:30 Lisinopril (Zestril) 10 mg DAILY PO Last administered on 03/28/18 09:24; Admin Dose 10 MG; Start 03/24/18 at 13:30 Insulin Glargine (Lantus) 42 units DAILY@0800 SC Last administered on 03/27/18at 08:45; Admin Dose 42 UNITS; Start 03/26/18 at 08:00; Status Hold Repaglinide (Prandin) 2 mg WITH MEALS PO Last administered on 03/27/18 17:59; Admin Dose 2 MG; Start 03/25/18 at 17:55; Status Hold Diagnostic Test (Pha) (Accu-Chek) 1 ea AC MEALS AND BEDTIME XX Last administered on 03/28/18 08:52; Admin Dose 1 EA; Start 03/25/18 at 17:25 Morphine Sulfate (morphine) 2 mg Q4H PRN IV PAIN LEVEL 7-10 Last administered on 03/28/18 09:32; Admin Dose 2 MG; Start 03/26/18 at 02:30 TALITA DICKENS MD Mar 28, 2018 10:36
--- NOTE | 2018-03-28 11:08 | CONS ---
Date/Time of Note Date/Time of Note DATE: 03/28/18 TIME: 11:07 Assessment/Plan Assessment/Plan Problems: (1) Diabetes mellitus type 2 in nonobese Status: Chronic Comment: Adequate control of sugars (2) Essential hypertension Status: Chronic Comment: Adequate blood pressure control (3) Hyperlipidemia associated with type 2 diabetes mellitus Status: Chronic Comment: Good statin control Result Diagram: 03/27/18 0421 03/27/18 0421 Results 24hrs Laboratory Tests Test 03/27/18 12:37 03/27/18 17:41 03/27/18 21:03 03/28/18 08:51 Bedside Glucose 106 125 126 67 L Consultation Date/Type/Reason Admit Date/Time Mar 19, 2018 at 20:19 Initial Consult Date 03/21/18 Type of Consult Endocrine Reason for Consultation Diabetes mellitus type 2 with complications Requesting Provider: CORWIN EMANUEL 24 HR Interval Summary Free Text/Dictation Patient states "doc, I am just not ready to go home yet" Constitutional: no complaints Detailed Summary Genitourinary: other (Inability to empty bladder) Endocrine: no complaints Exam/Review of Systems Vital Signs Vitals Vital Signs Date Temp Pulse Resp B/P (MAP) Pulse Ox O2 O2 Flow FiO2 Time Delivery Rate 03/28/18 98.0 63 14 149/68 96 Room Air 08:42 (95) Intake and Output 03/27/18 03/27/18 03/28/18 1515:00 23:00 07:00 IntakeIntake Total 760 ml 320 ml 50 ml OutputOutput Total 1000 ml 700 ml BalanceBalance -240 ml -380 ml 50 ml Exam Constitutional: alert, oriented Respiratory: clear to auscultation, normal air movement Extremities: normal pulses Medications Medications Current Medications Ondansetron HCl (Zofran Inj) 4 mg Q6H PRN IV NAUSEA AND/OR VOMITING Last administered on 03/27/18at 23:58; Admin Dose 4 MG; Start 03/19/18 at 20:30 Metoclopramide HCl (Reglan) 10 mg Q6H PRN IV NAUSEA AND/OR VOMITING; Start 03/19/18 at 20:30 Albuterol (Proventil 0.083% (Neb)) 2.5 mg Q2H RESP THERAPY PRN NEB SHORTNESS OF BREATH; Start 03/19/18 at 20:30 Ipratropium [place] (Atrovent 0.02% (Neb)) 0.5 mg Q2H RESP THERAPY PRN NEB SHORTNESS OF BREATH; Start 03/19/18 at 20:30 Acetaminophen (Tylenol Liquid) 650 mg Q6H PRN PO PAIN LEVEL 1-3 OR FEVER Last administered on 03/27/18at 15:56; Admin Dose 650 MG; Start 03/19/18 at 20:30 Docusate Sodium (Colace) 100 mg Q12H PRN PO CONSTIPATION; Start 03/19/18 at 20:30 Bisacodyl (Dulcolax) 5 mg DAILY PRN PO CONSTIPATION; Start 03/19/18 at 20:30 Aspirin (Halfprin) 81 mg DAILY PO Last administered on 03/28/18at 09:23; Admin Dose 81 MG; Start 03/20/18 at 09:00 Miscellaneous Information 1 ea NOTE XX ; Start 03/20/18 at 10:30 Glucose (Glutose) 15 gm Q15M PRN PO DECREASED GLUCOSE; Start 03/20/18 at 10:30 Glucose (Glutose) 22.5 gm Q15M PRN PO DECREASED GLUCOSE; Start 03/20/18 at 10:30 Dextrose (D50w Syringe) 25 ml Q15M PRN IV DECREASED GLUCOSE; Start 03/20/18 at 10:30 Dextrose (D50w Syringe) 50 ml Q15M PRN IV DECREASED GLUCOSE; Start 03/20/18 at 10:30 Glucagon (Glucagen) 1 mg Q15M PRN IM DECREASED GLUCOSE; Start 03/20/18 at 10:30 Glucose (Glutose) 15 gm Q15M PRN BUCCAL DECREASED GLUCOSE Last administered on 03/22/18at 21:35; Admin Dose 15 GM; Start 03/20/18 at 10:30 Ceftriaxone Sodium 50 ml @ 100 mls/hr Q24H IVPB Last administered on 03/27/18at 23:41; Admin Dose 100 MLS/HR; Start 03/21/18 at 00:00; Stop 03/30/18 at 23:59 Gabapentin (Neurontin) 300 mg QHS PO Last administered on 03/27/18at 21:04; Admin Dose 300 MG; Start 03/21/18 at 00:00 Tramadol HCl (Ultram) 50 mg Q6H PRN PO PAIN Last administered on 1/13/19at 00:24; Admin Dose 50 MG; Start 03/21/18 at 00:00 Tamsulosin HCl (Flomax) 0.4 mg DAILY@2100 PO Last administered on 03/27/18 21:04; Admin Dose 0.4 MG; Start 03/21/18 at 21:00 Miscellaneous Information (* Miscellaneous Pharmacy Order) D50 1/2 AMP + 10 UNITS... ONCE XX ; Start 03/21/18 at 22:00 Gabapentin (Neurontin) 300 mg DAILY PO Last administered on 03/28/18 09:22; Admin Dose 300 MG; Start 03/22/18 at 14:30 Heparin Sodium (Porcine) (Heparin (5000 Units/1ml)) 5,000 unit Q12 SC ; Start 03/22/18 at 21:00 Pantoprazole (Protonix Tab) 40 mg DAILY@06 PO Last administered on 03/28/18 07:00; Admin Dose 40 MG; Start 03/23/18 at 06:00 Linagliptin (Tradjenta) 5 mg DAILY PO Last administered on 03/27/18 08:54; Admin Dose 5 MG; Start 03/22/18 at 17:00 Carvedilol (Coreg) 12.5 mg BID PO Last administered on 03/28/18 09:23; Admin Dose 12.5 MG; Start 03/23/18 at 21:00 Finasteride (Proscar) 5 mg DAILY PO Last administered on 03/28/18 09:21; Admin Dose 5 MG; Start 03/24/18 at 13:30 Lisinopril (Zestril) 10 mg DAILY PO Last administered on 03/28/18 09:24; Admin Dose 10 MG; Start 03/24/18 at 13:30 Insulin Glargine (Lantus) 42 units DAILY@0800 SC Last administered on 03/27/18 08:45; Admin Dose 42 UNITS; Start 03/26/18 at 08:00; Status Hold Repaglinide (Prandin) 2 mg WITH MEALS PO Last administered on 03/27/18 17:59; Admin Dose 2 MG; Start 03/25/18 at 17:55; Status Hold Diagnostic Test (Pha) (Accu-Chek) 1 ea AC MEALS AND BEDTIME XX Last administered on 1/20/19at 08:52; Admin Dose 1 EA; Start 03/25/18 at 17:25 Morphine Sulfate (morphine) 2 mg Q4H PRN IV PAIN LEVEL 7-10 Last administered on 03/28/18at 09:32; Admin Dose 2 MG; Start 03/26/18 at 02:30 JEAN TRAYLOR MD Mar 28, 2018 11:08
--- NOTE | 2018-03-28 14:40 | NUR ---
FAXED REFERRAL TO [facility] AT [phone] SPOKE WITH LITA REGARDING THE PATIENT. WILLING TO TAKE PATIENT ONCE THEY VERIFY INSURANCE AND HARD COPY AUTH TO OFFICE. SPOKE WITH ORTIZ WITH [employer] AND MADE AWARE. SHE SAID THAT SHE WILL FAX AUTHORIZATION TO OFFICE TODAY. CRISTOBAL DANIEL AND ABDOULAYE MADE AWARE.
--- NOTE | 2018-03-28 17:21 | NUR ---
Discharge note All discharge paperwork reviewed, all questions answered. IV access dc and dry dressing applied. Patient aware scripts have been arranged with [facility]. Given 4 self cath kits and extra supplies of lube and iodine. Given information for home health and their phone number, advised to call tomorrow. Patient given taxi voucher and taxi service called to milk pickup driver. Addendum: 03/28/18 at 1727 by NELSON KERNS RN PUFF IRON OPERATOR escorted out of hospital via wheelchair.
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
== END 2018-03-28 17:15 | disposition home health service (06) | DRG 871 ==
LOC: E/R 15:09 → UNMERGE 20:19 → ICU 20:19 → MERGE 20:19 → 2NE 03-20 18:50 → TEL 03-21 21:41 → MS1 03-26 01:13
PROVIDERS: ADMIT Family Medicine; ATTEND Internal Medicine
DX: A41.9 Sepsis, unspecified organism (principal); E11.10 Type 2 diabetes mellitus with ketoacidosis without coma; N17.0 Acute kidney failure with tubular necrosis; E87.2 Acidosis; N13.8 Other obstructive and reflux uropathy; E87.1 Hypo-osmolality and hyponatremia; N10 Acute pyelonephritis; N31.8 Other neuromuscular dysfunction of bladder; N39.490 Overflow incontinence; E87.5 Hyperkalemia; I12.9 Hypertensive chronic kidney disease with stage 1 through stage 4 chronic kidney disease, or unspecified chronic kidney disease; E11.22 Type 2 diabetes mellitus with diabetic chronic kidney disease; N18.3 Chronic kidney disease, stage 3 (moderate); E78.5 Hyperlipidemia, unspecified; G62.9 Polyneuropathy, unspecified; R33.9 Retention of urine, unspecified; R65.20 Severe sepsis without septic shock
CPT/HCPCS: 36415; 71045; 74176; 76775; 80048; 80053; 81001; 81003; 82043; 82570; 82803; 82962; 83036; 83605; 83690; 83735; 84100; 84153; 84154; 84300; 84443; 84484; 84560; 85025; 85610; 85730; 86803; 87040; 87081; 87086; 87340; 89190; 93005; 94640; 96360; C9113; J0610; J0696; J1644; J1815; J2270; J2274; J2405; J3475; J7030; J7120; Q9967

== ENCOUNTER 2018-07-24 11:00 | Emergency (ER) | payer OTHER ==
[~2018-07-24] VITALS: Wt 68.1 kg
[~2018-07-24 11:00] MED LIST changes: -AMOX1TAB10 PO; +FINA5TAB PO; +TAMS0.4C2 PO
[2018-07-24] MEDS ORDERED: SOD CHLORIDE 0.9% 1,000 ML IV STA (11:18)
--- NOTE | 2018-07-24 12:47 | ERD ---
ER Documentation Chief Complaint Chief Complaint kidney bilateral and bladder pain, recent dc form [facility] yesterday.N/V HPI This is a 63-year-old male who presents to the ER for evaluation of bladder pain. The patient states that he does have a history of urinary tract infection and was seen at [facility] however he left because he does not like the way he was being treated over there. The patient states that he does have a home health care nurse and he was getting IV antibiotics through a PICC line in his left upper extremity. He states that today he called 911 because he was having pain and came to the ER for evaluation. The patient denies any fevers chills nausea vomiting. ROS All systems reviewed and are negative except as per history of present illness. Medications Home Meds Active Scripts Tamsulosin Hcl* (Tamsulosin Hcl*) 0.4 Mg Cap.er.24h, 0.4 MG PO HS, #60 CAP Prov:CORWIN EMANUEL 03/27/18 Finasteride* (Proscar*) 5 Mg Tablet, 5 MG PO DAILY, #60 TAB Prov:CORWIN EMANUEL 03/27/18 Amlodipine Besylate* (Amlodipine Besylate*) 2.5 Mg Tablet, 2.5 MG PO DAILY, #30 TAB Prov:CARLINE YOUNG V. FIRST SAMPLER 01/21/18 Insulin Aspart* (Novolog Insulin Pen*) 100 Unit/Ml Soln, 5 UNIT SC WITH MEALS for 30 Days, #30 DOSE Prov:YOUNGROXA Billy. FIRST SAMPLER 01/21/18 [place]-3/Dha/Epa/Fish Oil (FISH OIL EC 1,000 MG SOFTGEL) 1 Each Capsule.dr, 1000 MG PO BID, #30 CAP Prov:LANDON WAGGONER 06/07/17 Insulin Glargine* (Lantus*) 100 Unit/Ml Soln, 45 UNIT SC DAILY@08 for 30 Days Prov:LANDON WAGGONER 06/07/17 Atorvastatin (Atorvastatin) 10 Mg Tablet, 20 MG PO HS, #30 TAB Prov:LANDON WAGGONER 06/07/17 Hydralazine Hcl* (Hydralazine Hcl*) 25 Mg Tab, 25 MG PO TID for 30 Days, #30 TAB 2 Refills Prov:LANDON WAGGONER 06/07/17 Gabapentin* (Neurontin*) 300 Mg Capsule, 300 MG PO DAILY, #30 CAP Prov:LANDON WAGGONER 06/07/17 Loratadine* (Claritin*) 10 Mg Capsule, 10 MG PO DAILY for 10 Days, CAP Prov:SHITAL LEACH 12/08/16 Reported Medications Nitroglycerin* (Nitroglycerin* SL) 0.4 Mg Tab.subl, 0.4 MG SL Q5MIN PRN for CHEST PAIN, BOTTLE 01/03/14 Allergies Allergies: Coded Allergies: metformin (Unverified Allergy, Intermediate, Diarrhea, 03/24/18) codeine (Unverified Allergy, Unknown, 03/24/18) Uncoded Allergies: ANTIBIOTICS (Allergy, Severe, 06/04/17) unknown antibiotic ANTIBIOTICS UNKNOWN (Allergy, Unknown, 03/24/18) PATIENT SAYS HIS ALLERGIC TO SOME OF THE ANTIBIOTICS PMhx/Soc History of Surgery: Yes (back) Anesthesia Reaction: No Hx Neurological Disorder: No Hx Respiratory Disorders: No Hx Cardiac Disorders: Yes (undetermined CHF?) Hx Psychiatric Problems: No Hx Miscellaneous Medical Probl: No Hx Alcohol Use: No Hx Substance Use: No Hx Tobacco Use: No Smoking Status: Never smoker Physical Exam Vitals Vital Signs Date Temp Pulse Resp B/P (MAP) Pulse Ox O2 O2 Flow FiO2 Time Delivery Rate 07/24/18 98.4 76 18 134/63 98 11:03 (86) Physical Exam INITIAL VITAL SIGNS: Reviewed by me GENERAL: The patient is well developed and appropriate for usual state of health in no apparent distress HEENT: Pupils equal, round, and reactive to light. EOMI. There is no scleral icterus. NECK: C-spine is soft and supple, there is no meningismus. There is no cervical lymphadenopathy. LUNGS: Clear to auscultation bilaterally. There are no rales, wheezes or rhonchi. HEART: Regular rate and rhythm, no murmurs, clicks, rubs or gallops. ABDOMEN: Soft, non-tender, non-distended. There are bowel sounds in all four quadrants. No rebound or guarding. EXTREMITIES: PICC line in left upper extremity, there is no peripheral cyanosis or edema. No focal swelling or erythema. NEUROLOGICAL: The patient moves all four extremities with 5/5 strength. Cranial nerves II - XII are intact. Normal gait. Alert and oriented SKIN: There is no apparent rash or petechiae. HEME/LYMPHATIC: There is no evidence of excessive bruising or lymphedema. PSYCHIATRIC: The patient does not appear anxious or depressed. Result Diagram: 07/24/18 1140 07/24/18 1140 Results 24 hrs Laboratory Tests Test 07/24/18 11:40 White Blood Count 11.0 10^3/ul Red Blood Count 3.52 10^6/ul Hemoglobin 8.9 g/dl Hematocrit 27.8 % Mean Corpuscular Volume 79.0 fl Mean Corpuscular Hemoglobin 25.3 pg Mean Corpuscular Hemoglobin Concent 32.0 g/dl Red Cell Distribution Width 14.6 % Platelet Count 371 10^3/UL Mean Platelet Volume 8.7 fl Immature Granulocytes % 0.400 % Neutrophils % 69.9 % Lymphocytes % 22.1 % Monocytes % 6.3 % Eosinophils % 0.8 % Basophils % 0.5 % Nucleated Red Blood Cells % 0.0 /100WBC Immature Granulocytes # 0.040 10^3/ul Neutrophils # 7.7 10^3/ul Lymphocytes # 2.4 10^3/ul Monocytes # 0.7 10^3/ul Eosinophils # 0.1 10^3/ul Basophils # 0.1 10^3/ul Nucleated Red Blood Cells # 0.0 10^3/ul Urine Color STRAW Urine Clarity CLEAR Urine pH 6.0 Urine Specific [place] 1.008 Urine Ketones NEGATIVE mg/dL Urine Nitrite NEGATIVE mg/dL Urine Bilirubin NEGATIVE mg/dL Urine Urobilinogen NEGATIVE mg/dL Urine Leukocyte Esterase NEGATIVE Cara/ul Urine Microscopic RBC 17 /HPF Urine Microscopic WBC 18 /HPF Urine Hemoglobin 2+ mg/dL Urine Glucose 1+ mg/dL Urine Total Protein NEGATIVE mg/dl Sodium Level 131 mmol/L Potassium Level 4.4 mmol/L Chloride Level 100 mmol/L Carbon Dioxide Level 25 mmol/L Anion Gap 6 Blood Urea Nitrogen 27 mg/dl Creatinine 1.12 mg/dl Est Glomerular Filtrat Rate mL/min > 60 mL/min Glucose Level 194 mg/dl Calcium Level 8.6 mg/dl Total Bilirubin 0.6 mg/dl Direct Bilirubin 0.00 mg/dl Indirect Bilirubin 0.6 mg/dl Aspartate Amino Transf (AST/SGOT) 30 IU/L Alanine Aminotransferase (ALT/SGPT) 32 IU/L Alkaline Phosphatase 200 IU/L Troponin I < 0.012 ng/ml Total Protein 6.2 g/dl Albumin 3.0 g/dl Globulin 3.20 g/dl Albumin/Globulin Ratio 0.93 Lipase 321 U/L Current Medications Medications Dose Sig/Aubrey Start Time Status Last (Trade) Ordered Route PRN Stop Time Admin Dose Reason Admin Sodium 1,000 ml @ Q1H STAT 07/24/18 DC 07/24/18 Chloride 1,000 mls/hr IV 11:18 11:45 07/24/18 12:17 Ceftriaxone 50 ml @ ONCE ONCE 07/24/18 UNV Sodium 100 mls/hr IVPB 13:00 07/24/18 13:29 Procedures/MDM This 62-year-old male presents to the ER for evaluation of pain in the bladder. He does have a history of urinary tract infection and does have a PICC line. The patient does have home health nursing and states that he was having more pain than normal so he came to the ER. On my exam the patient is afebrile, nontoxic-appearing and hemodynamically stable with no significant tenderness. Lab work was obtained and shows mild leukocytosis with some white blood cells in the urine. The patient was given 1 g Rocephin through his PICC line. He does have a home health nurse who is coming to his house tomorrow and advised him to continue receiving IV antibiotics at home. I advised him that if he were not able to receive IV antibiotics and he will need to call his primary care physician or return to the ER for continuous infusion. The patient verbalized understanding and is okay with the plan of care. Departure Diagnosis: Primary Impression: Acute cystitis Additional Impression: Essential hypertension Condition: IVAN Delgado DO July 24, 2018 12:47
[2018-07-24] MEDS ORDERED: NITR-58 PO (12:48)
[2018-07-24] MEDS: CEFTRIAXONE 1 GM/50 ML (PMX) 50 ML IVPB ONE ×2 (13:00→13:16)
[2018-07-24 13:17] VITALS: BP 139/79; PULSE 89; RESP 20
== END 2018-07-24 13:20 | disposition home or self-care (01) ==
LOC: E/R 11:00
DX: N30.00 Acute cystitis without hematuria (principal); I10 Essential (primary) hypertension; E11.9 Type 2 diabetes mellitus without complications; Z79.4 Long term (current) use of insulin
CPT/HCPCS: 36415; 80053; 81001; 83690; 84484; 85025; 87086; J0696; J7030; Z7502

== ENCOUNTER 2018-07-29 10:29 | Inpatient (IN) | payer OTHER ==
[~2018-07-29] VITALS: Ht 172.7 cm; Wt 68.2 kg
[~2018-07-29 10:29] MED LIST changes: +NITR-58 PO
[2018-07-29 10:38] VITALS: Ht 172.7 cm; Wt 68.2 kg
[2018-07-29] MEDS ORDERED: LEVOFLOXACIN 500MG/D5W (PMX) 100 ML IVPB STA (10:52)
[2018-07-29] MEDS ORDERED: CEFEPIME 2GM/50 ML (PMX) 50 ML IVPB STA (10:52)
[2018-07-29] MEDS ORDERED: SODIUM CHLORIDE 0.9% 1L BAG IV* STA (10:52)
[2018-07-29] MEDS ORDERED: ACETAMINOPHEN 325 MG TAB PO STA (10:52)
[2018-07-29] MEDS ORDERED: LISI1TAB6 PO (12:18)
[2018-07-29] MEDS ORDERED: ASPI-817 PO (12:19)
[2018-07-29] MEDS ORDERED: FINA5TAB4 PO (12:19)
[2018-07-29] MEDS ORDERED: ATOR-2 PO (12:21)
[2018-07-29] MEDS ORDERED: GABA300C16 PO (12:21)
[2018-07-29] MEDS ORDERED: TAMS-14 PO (12:22)
[2018-07-29] MEDS ORDERED: MIRT15TA PO (12:25)
--- NOTE | 2018-07-29 12:43 | ERD ---
ER Documentation Chief Complaint Chief Complaint BIB RA FROM PMD OFFICE FOR UTI , FEVER , CHILLS HPI This is a 63-year-old male who is here for fever chills dysuria and bilateral flank pain. The patient was sent by his primary care doctor for admission for rule out sepsis. The patient had fever and chills for 2 days with no GI s ymptoms no chest pain or shortness of breath he had a slight dry cough. He said he has had UTIs in the past before. ROS All systems reviewed and are negative except as per history of present illness. Medications Home Meds Reported Medications Mirtazapine* (Remeron*) Unknown Strength Tablet, 1 TAB PO HS, TAB 07/29/18 Tamsulosin Hcl* (Flomax*) 0.4 Mg Cap.er.24h, 0.4 MG PO HS, CAP 07/29/18 Atorvastatin* (Atorvastatin*) 80 Mg Tablet, 80 MG PO QHS, #30 TAB 07/29/18 Gabapentin* (Gabapentin*) 300 Mg Capsule, 300 MG PO DAILY, #60 CAP 07/29/18 Finasteride* (Finasteride*) 5 Mg Tablet, 5 MG PO DAILY, TAB 07/29/18 Aspirin* (Aspirin* EC) 81 Mg Tablet.dr, 81 MG PO DAILY, TAB 07/29/18 Lisinopril/Hydrochlorothiazide (Lisinopril-Hctz 20-12.5 mg Tab) 1 Each Tablet, 1 EACH PO BID, TAB 07/29/18 Discontinued Reported Medications Nitroglycerin* (Nitroglycerin* SL) 0.4 Mg Tab.subl, 0.4 MG SL Q5MIN PRN for C HEST PAIN, BOTTLE 01/03/14 Discontinued Scripts Nitrofurantoin Monohyd Macrocr* (Macrobid*) 100 Mg Capsr, 100 MG PO BID for 14 Days, CAP Prov:IVAN MILIAN DO 07/24/18 Tamsulosin Hcl* (Tamsulosin Hcl*) 0.4 Mg Cap.er.24h, 0.4 MG PO HS, #60 CAP Prov:CORWIN EMANUEL 03/27/18 Finasteride* (Proscar*) 5 Mg Tablet, 5 MG PO DAILY, #60 TAB Prov:CORWIN EMANUEL 03/27/18 Amlodipine Besylate* (Amlodipine Besylate*) 2.5 Mg Tablet, 2.5 MG PO DAILY, #30 TAB Prov:YOUNGCARLINE V. EVENT HOST 01/21/18 Insulin Aspart* (Novolog Insulin Pen*) 100 Unit/Ml Soln, 5 UNIT SC WITH MEALS for 30 Days, #30 DOSE Prov:YOUNG,CARLINE V. EVENT HOST 01/21/18 [place]-3/Dha/Epa/Fish Oil (FISH OIL EC 1,000 MG SOFTGEL) 1 Each Capsule.dr, 1000 MG PO BID, #30 CAP Prov:REGLANDON PERERA EVENT HOST 06/07/17 Insulin Glargine* (Lantus*) 100 Unit/Ml Soln, 45 UNIT SC DAILY@08 for 30 Days Prov:LANDON WAGGONER NP 06/07/17 Atorvastatin (Atorvastatin) 10 Mg Tablet, 20 MG PO HS, #30 TAB Prov:REGLANDON PERERA EVENT HOST 06/07/17 Hydralazine Hcl* (Hydralazine Hcl*) 25 Mg Tab, 25 MG PO TID for 30 Days, #30 TAB 2 Refills Prov:REGLANDON PERERA EVENT HOST 06/07/17 Gabapentin* (Neurontin*) 300 Mg Capsule, 300 MG PO DAILY, #30 CAP Prov:REGLANDON PERERA EVENT HOST 06/07/17 Loratadine* (Claritin*) 10 Mg Capsule, 10 MG PO DAILY for 10 Days, CAP Prov:PASILASHITAL GILBERT F 12/08/16 Allergies Allergies: Coded Allergies: metformin (Unverified Allergy, Intermediate, Diarrhea, 07/29/18) codeine (Unverified Allergy, Unknown, 07/29/18) Uncoded Allergies: ANTIBIOTICS (Allergy, Severe, 06/04/17) unknown antibiotic ANTIBIOTICS UNKNOWN (Allergy, Unknown, 03/24/18) PATIENT SAYS HIS ALLERGIC TO SOME OF THE ANTIBIOTICS PMhx/Soc History of Surgery: Yes (back) Anesthesia Reaction: No Hx Neurological Disorder: No Hx Respiratory Disorders: No Hx Cardiac Disorders: Yes (HTN , HYPERLIPIDEMIA ) Hx Psychiatric Problems: Yes (ANXIETY ) Hx Miscellaneous Medical Probl: Yes (CKD , DM , GERD , LT BUTTOCK WOUND ) Hx Alcohol Use: No Hx Substance Use: No Hx Tobacco Use: No Smoking Status: Never smoker FmHx Family History: No coronary disease Physical Exam Vitals Vital Signs Date Temp Pulse Resp B/P (MAP) Pulse Ox O2 O2 Flow FiO2 Time Delivery Rate 07/29/18 88 18 141/65 100 Room Air 11:55 (90) 07/29/18 100.1 108 18 147/84 100 10:38 (105) Physical Exam Const: Well-developed, well-nourished Head: Atraumatic, normocephalic Eyes: Normal Conjunctiva, PERRLA, EOMI, normal sclera, no nystagmus ENT: Normal External Ears, Nose and Mouth, moist mucus membranes. Neck: Full range of motion. No meningismus, no lymphadenopathy. Resp: Clear to auscultation bilaterally, no wheezing, rhonchi, rales Cardio: Regular rate and rhythm, no murmurs, S1 S2 present Abd: Soft, non tender x 4, non distended. Normal bowel sounds, no guarding or rebound, no pulsitile abdominal masses or bruits Skin: No petechiae or rashes, no ecchymosis , no maculopapular rash Back: Bilateral flank tenderness Ext: No cyanosis, or edema, FROM x 4, normal inspection, neurovascularly intact x 4 Neur: Awake and alert, STR 5/5 x 4, sensation intact x 4, no focal findings, cerebellum intact Psych: Normal Mood and Affect Result Diagram: 07/29/18 1106 07/29/18 1106 Results 24 hrs Laboratory Tests Test 07/29/18 11:04 07/29/18 11:06 POC Venous Lactate 1.5 mmol/L White Blood Count 15.4 10^3/ul Red Blood Count 3.80 10^6/ul Hemoglobin 9.6 g/dl Hematocrit 29.7 % Mean Corpuscular Volume 78.2 fl Mean Corpuscular Hemoglobin 25.3 pg Mean Corpuscular Hemoglobin Concent 32.3 g/dl Red Cell Distribution Width 14.3 % Platelet Count 384 10^3/UL Mean Platelet Volume 8.8 fl Immature Granulocytes % 0.600 % Neutrophils % 71.2 % Lymphocytes % 19.6 % Monocytes % 6.1 % Eosinophils % 2.1 % Basophils % 0.4 % Nucleated Red Blood Cells % 0.0 /100WBC Immature Granulocytes # 0.090 10^3/ul Neutrophils # 11.0 10^3/ul Lymphocytes # 3.0 10^3/ul Monocytes # 0.9 10^3/ul Eosinophils # 0.3 10^3/ul Basophils # 0.1 10^3/ul Nucleated Red Blood Cells # 0.0 10^3/ul Urine Color YELLOW Urine Clarity TURBID Urine pH 6.0 Urine Specific [place] 1.013 Urine Ketones NEGATIVE mg/dL Urine Nitrite NEGATIVE mg/dL Urine Bilirubin NEGATIVE mg/dL Urine Urobilinogen NEGATIVE mg/dL Urine Leukocyte Esterase 3+ Cara/ul Urine Microscopic RBC 5 /HPF Urine Microscopic WBC > 182 /HPF Urine Bacteria FEW /HPF Urine Hemoglobin 1+ mg/dL Urine Glucose 3+ mg/dL Urine Total Protein 1+ mg/dl Sodium Level 131 mmol/L Potassium Level 4.9 mmol/L Chloride Level 95 mmol/L Carbon Dioxide Level 22 mmol/L Anion Gap 14 Blood Urea Nitrogen 31 mg/dl Creatinine 1.35 mg/dl Est Glomerular Filtrat Rate mL/min 53 mL/min Glucose Level 334 mg/dl Calcium Level 8.8 mg/dl Total Bilirubin 0.5 mg/dl Direct Bilirubin 0.00 mg/dl Indirect Bilirubin 0.5 mg/dl Aspartate Amino Transf (AST/SGOT) 31 IU/L Alanine Aminotransferase (ALT/SGPT) 60 IU/L Alkaline Phosphatase 263 IU/L Troponin I < 0.012 ng/ml Total Protein 7.7 g/dl Albumin 3.6 g/dl Globulin 4.10 g/dl Albumin/Globulin Ratio 0.87 Current Medications Medications Dose Sig/Aubrey Start Time Status Last (Trade) Ordered Route PRN Stop Time Admin Dose Reason Admin Sodium 2,040 ml BOLUS OVER 2 07/29/18 DC 07/29/18 Chloride HOURS STAT 10:52 11:11 (NS) IV* 07/29/18 10:54 650 mg ONCE STAT 07/29/18 DC 07/29/18 Acetaminophen PO 10:52 11:11 (Tylenol 07/29/18 10:54 Tab) Cefepime HCl 50 ml @ ONCE STAT 07/29/18 DC 07/29/18 100 mls/hr IVPB 10:52 11:23 07/29/18 11:21 100 ml @ ONCE STAT 07/29/18 DC 07/29/18 Levofloxacin/ 100 mls/hr IVPB 10:52 11:55 Dextrose 07/29/18 11:51 Procedures/[address] [address] Radiology Main Line: [phone] DIAGNOSTIC IMAGING REPORT Patient: HEENA CHRISTIAN : 1955 Age: 63 Sex: M MR #: [id number] DOS: 07/29/18 1052 Ordering MD: BRIDGET BARNHART DO Location: E/R Room/Bed: PROCEDURE: XR Chest. CLINICAL INDICATION: Possible Sepsis. TECHNIQUE: Single view chest x-ray. COMPARISON: CR CHEST 07/21/2018; SD CR CHEST 07/09/2018; CR CHEST 05/07/2018 FINDINGS: Lines/Tubes: None. The cardiomediastinal silhouette is normal in size and contour. There are atherosclerotic calcifications of the aortic arch. No consolidation, pleural effusion, or pneumothorax is seen. Interval changes of the osseous structures. IMPRESSION: 1. No radiographic evidence of an acute cardiopulmonary process. 2. Aortic atherosclerosis. RPTAT: RR Physician Chan Date Time Electronically viewed and signed by Jace Matta Physician on 07/29/2018 11:48 RP/ CC: BRIDGET BARNHART DO [id number] The patient's lactic acid is 1.5. He does have bilateral flank tenderness with elevated white blood count and fever consistent with [place] and his urine is infected. With the patient in the hospital for IV fluids and IV antibiotics. He said blood cultures urine cultures and antibiotics already in the ED. Departure Diagnosis: Primary Impression: Pyelonephritis Condition: Stable BRIDGET BARNHART DO July 29, 2018 12:43
[2018-07-29] MEDS ORDERED: SOD CHLORIDE 0.9% 1,000 ML IV SCH (12:53)
[2018-07-29] MEDS ORDERED: ONDANSETRON 4 MG INJ IV PRN (13:00)
[2018-07-29] MEDS ORDERED: ACETAMINOPHEN 325 MG TAB PO PRN (13:00)
[2018-07-29] MEDS ORDERED: NACL 0.9% 3 ML SYG IV SCH (15:30)
--- NOTE | 2018-07-29 15:32 | HP ---
Date/Time of Note Date/Time of Note DATE: 07/29/18 TIME: 15:18 Assessment/Plan VTE Prophylaxis SCD applied (from Nsg): Yes Pharmacological prophylaxis: NA/contraindicated Pharm contraindication: low risk/ambulating Lines/Catheters IV Catheter Type (from Nrsg): PICC Line Central line still needed: Yes Assessment/Plan Hospital Course SUBJECTIVE: No acute distress. Having low-grade fevers. OBJECTIVE: Vital signs-see below PHYSICAL EXAM: Constitutional: Adequately built,not in acute distress. HEENT: Head atraumatic and normocephalic. Eyes: Extraocular muscles intact. Anicteric sclerae. Pupils equal bilaterally, reactive to light. NECK: Supple without lymph node. CHEST: Clear and good breath sounds equally. No wheezing. No rhonchi. HEART: S1, S2. Regular rate and rhythm. ABDOMEN: Soft/non tender with no rebound tenderness. Bowel sounds were present. EXTREMITIES: No cyanosis, clubbing or edema. NEUROLOGIC: Alert and oriented x3. No focal deficit. No sensory deficit. PSYCHOSOCIAL: No signs of depression. INTEGUMENTARY: No open wounds. ASSESSMENT AND PLAN: 63-year-old male with history of diabetes, BPH, recommend urinary tract infection causing sepsis, hypertension, dyslipidemia, w/2 day duration of fever/chills was asked by primary care doctor to go to ER for treat ment for a"bug in his urine"...found w/sepsis/uti Sepsis Source: Pyelonephritis/UTI -Broad-spectrum IV antimicrobials with GNR coverage -Cultures Pyelonephritis, Recurrent -Start meropenem. -f/u cultures Acute kidney injury, likely secondary to hemodynamics versus ACEi/HCTZ -For now we will hold off to ACEi/HCTZ -Gentle hydration DMII -Poorly managed -Basal/bolus insulin -A1c -DM education Dyslipidemia -Resume statin BPH -Resume Proscar/Flomax Hypertension -We will hold lisinopril/HCTZ secondary to acute kidney injury -We will treat blood pressure with amlodipine Hyponatremia, likely thiazide effect -Hold hydrochlorothiazide -We will treat with IV fluids Chronic anemia -H&H stable. Add iron panel to a.m. labs DVT prophylaxis: SCDs Rest of the management depend on hospital course. Approximately 60-minute was spent on H&P. Patient was seen in collaboration with DR.Kin Result Diagram: 07/29/18 1106 07/29/18 1106 Results 24hrs Laboratory Tests Test 07/29/18 11:04 07/29/18 11:06 POC Venous Lactate 1.5 White Blood Count 15.4 #H Red Blood Count 3.80 L Hemoglobin 9.6 L Hematocrit 29.7 L Mean Corpuscular Volume 78.2 L Mean Corpuscular Hemoglobin 25.3 L Mean Corpuscular Hemoglobin Concent 32.3 Red Cell Distribution Width 14.3 Platelet Count 384 Mean Platelet Volume 8.8 Immature Granulocytes % 0.600 H Neutrophils % 71.2 Lymphocytes % 19.6 Monocytes % 6.1 Eosinophils % 2.1 Basophils % 0.4 Nucleated Red Blood Cells % 0.0 Immature Granulocytes # 0.090 H Neutrophils # 11.0 H Lymphocytes # 3.0 H Monocytes # 0.9 Eosinophils # 0.3 Basophils # 0.1 Nucleated Red Blood Cells # 0.0 Urine Color YELLOW Urine Clarity TURBID A Urine pH 6.0 Urine Specific [place] 1.013 Urine Ketones NEGATIVE Urine Nitrite NEGATIVE Urine Bilirubin NEGATIVE Urine Urobilinogen NEGATIVE Urine Leukocyte Esterase 3+ H Urine Microscopic RBC 5 Urine Microscopic WBC > 182 H Urine Bacteria FEW A Urine Hemoglobin 1+ H Urine Glucose 3+ H Urine Total Protein 1+ H Sodium Level 131 L Potassium Level 4.9 Chloride Level 95 L Carbon Dioxide Level 22 Anion Gap 14 H Blood Urea Nitrogen 31 H Creatinine 1.35 H Est Glomerular Filtrat Rate mL/min 53 L Glucose Level 334 H Calcium Level 8.8 Total Bilirubin 0.5 Direct Bilirubin 0.00 Indirect Bilirubin 0.5 Aspartate Amino Transf (AST/SGOT) 31 Alanine Aminotransferase (ALT/SGPT) 60 Alkaline Phosphatase 263 H Troponin I < 0.012 Total Protein 7.7 Albumin 3.6 Globulin 4.10 H Albumin/Globulin Ratio 0.87 HPI/ROS Admit Date/Time Admit Date/Time Hx of Present Illness This is a 63-year-old male with a long-standing history of diabetes, chronic kidney disease, hypertension, BPH, and urinary tract infection causing sepsis requiring multiple hospitalization, who was asked to go to the emergency room by his primary care doctor for "bug in the urine causing infection". Patient has been having fever and chills over the last 2 days. He denied dysuria, hematuria, urinary frequency, urgency, dribbling, nocturia. Patient denied cough, shortness of breath, nausea, vomiting, chest pain, palpitation, abdominal pain, or other constitutional symptoms. Patient also has a IV access on left upper extremity for which he is unsure if the PICC line versus midline. It has been in place for 3 weeks per patient. Labs showed WBC 15,400, hemoglobin 9.6, hematocrit 29.7, sodium 131, BUN 31, creatinine 1.35, and glucose 334. Patient's UA strongly suggestive of urinary t ract infection. Patient's chest x-ray unremarkable for any acute cardiopulmonary process. His vital signs also show temperature 100.1, pulse rate 108. Patient was given cefepime and Levaquin in the emergency room with a fluid bolus. ROS A 12 point review of system was assessed and is negative other than what is mentioned in the HPI. PMH/Family/Social Past Medical History See HPI Medications Current Medications Sodium Chloride 1,000 ml @ 80 mls/hr [id number] IV ; Start 07/29/18 at 12:53; Stop 07/30/18 at 01:22 Ondansetron HCl (Zofran Inj) 4 mg BRIDGE ORDER PRN IV NAUSEA/VOMITING; Start 07/29/18 at 13:00; Stop 07/30/18 at 12:59 Acetaminophen (Tylenol Tab) 650 mg ER BRIDGE PRN PO .MILD PAIN 1-3 OR TEMP; Start 07/29/18 at 13:00; Stop 07/30/18 at 12:59 Aspirin (Halfprin) 81 mg DAILY PO ; Start 07/30/18 at 09:00; Status UNV Atorvastatin Calcium (Lipitor) 80 mg QHS PO ; Start 07/29/18 at 21:00; Status UNV Finasteride (Proscar) 5 mg DAILY PO ; Start 07/30/18 at 09:00; Status UNV Gabapentin (Neurontin) 300 mg DAILY PO ; Start 07/30/18 at 09:00; Status UNV Tamsulosin HCl (Flomax) 0.4 mg HS PO ; Start 07/29/18 at 21:00; Status UNV Meropenem/Sodium Chloride 50 ml @ 100 mls/hr Q8 IVPB ; Start 07/29/18 at 15:30; Status UNV IV Flush (NS 3 ml) 3 ml PER PROTOCOL IV ; Start 07/29/18 at 15:30; Status UNV Ondansetron HCl (Zofran Inj) 4 mg Q6H PRN IV NAUSEA/VOMITING; Start 07/29/18 at 15:30; Status UNV Acetaminophen (Tylenol Tab) 650 mg Q6H PRN PO .PAIN 1-3 OR TEMP; Start 07/29/18 at 15:30; Status UNV Miscellaneous Information (* Miscellaneous Pharmacy Order) Discontinue current oral sulfonylur... ONCE ONCE XX ; Start 07/29/18 at 15:30; Stop 07/29/18 at 15:31; Status UNV Diagnostic Test (Pha) (Accu-Chek) 1 ea XX ; Start 07/30/18 at 02:00; Status UNV Insulin Glargine (Lantus) 10 units DAILY@2000 SC ; Start 07/29/18 at 20:00; Status UNV Insulin Aspart (Novolog Insulin Pen) 3 unit WITH MEALS SC ; Start 07/29/18 at 18:00; Status UNV Miscellaneous Information (* Miscellaneous Pharmacy Order) HYPOGLYCEMIA PROTOCOL w... ONCE ONCE XX ; Start 07/29/18 at 15:30; Stop 07/29/18 at 15:31; Status UNV Insulin Aspart (Novolog Insulin Pen) NOVOLOG *MILD* ALGORITHM WITH MEALS BEDTIME SC ; Start 07/29/18 at 18:00; Status UNV Miscellaneous Information (* Miscellaneous Pharmacy Order) Discontinue all previ... ONCE ONCE XX ; Start 07/29/18 at 15:30; Stop 07/29/18 at 15:31; Status UNV Coded Allergies: metformin (Unverified Allergy, Intermediate, Diarrhea, 07/29/18) codeine (Unverified Allergy, Unknown, 07/29/18) Uncoded Allergies: ANTIBIOTICS (Allergy, Severe, 06/04/17) unknown antibiotic ANTIBIOTICS UNKNOWN (Allergy, Unknown, 03/24/18) PATIENT SAYS HIS ALLERGIC TO SOME OF THE ANTIBIOTICS Past Surgical History See HPI Past Surgical Hx: other Family History Significant Family History: other Social History Patient denied history of alcohol, smoking or illicit drug use Smoking Status: Never smoker Exam/Review of Systems Vital Signs Vitals Vital Signs Date Temp Pulse Resp B/P (MAP) Pulse Ox O2 O2 Flow FiO2 Time Delivery Rate 07/29/18 96.9 86 17 137/73 100 Room Air 13:16 (94) CARLINE YOUNG NP July 29, 2018 15:31
[2018-07-29] MEDS ORDERED: GLUCAGON 1 MG INJ IM PRN (16:00)
[2018-07-29] MEDS ORDERED: DEXTROSE 50% 50 ML SYRINGE IV PRN ×2 (16:00)
[2018-07-29] MEDS ORDERED: GLUCOSE GEL 15 GRAM TUBE BUCCAL PRN (16:00)
[2018-07-29] MEDS ORDERED: GLUCOSE GEL 15 GRAM TUBE PO PRN ×2 (16:00)
[2018-07-29] MEDS: MEROPENEM 1 GM/50ML(PMX) 50 ML IVPB SCH ×2 (16:02→21:30)
[2018-07-29 16:42] VITALS: BP 174/74; PULSE 73; RESP 18
[2018-07-29] MEDS: ONDANSETRON 4 MG INJ IV PRN ×2 (16:56→23:01)
[2018-07-29] MEDS ORDERED: HYDROCODONE/APAP (5/325) TAB PO PRN (17:30)
[2018-07-29] MEDS: morphine 2 MG INJ IV PRN ×2 (17:42→22:49)
[2018-07-29] MEDS: INSULIN ASPART [NOVOLOG] 3 ML PEN SC SCH ×3 (17:51→21:30)
[2018-07-29 19:19] VITALS: BP 147/65; PULSE 98; RESP 18
[2018-07-29] MEDS: INSULIN GLARGINE [LANTus] (100 UNITS/ML) SYG SC SCH (21:28)
[2018-07-29] MEDS: TAMSULOSIN (SR) 0.4 MG CAP PO SCH (21:30)
[2018-07-29] MEDS: ATORVASTATIN 80 MG TAB PO SCH (21:30)
[2018-07-30] MEDS ORDERED: HYDROmorphONE 1 MG/ML SYG IV ONE (01:10)
[2018-07-30] MEDS: ACCU-CHEK XX SCH (01:52)
[2018-07-30 01:59] VITALS: BP 110/54; PULSE 105; RESP 18
[2018-07-30] MEDS: HYDROmorphONE 2 MG TAB PO PRN ×2 (04:27→08:56)
[2018-07-30] MEDS: MEROPENEM 1 GM/50ML(PMX) 50 ML IVPB SCH ×3 (05:35→21:57)
[2018-07-30 08:03] VITALS: BP 124/59; PULSE 86; RESP 17
[2018-07-30] MEDS: ASPIRIN (EC) 81 MG TAB PO SCH (08:48)
[2018-07-30] MEDS: FINASTERIDE 5 MG TAB PO SCH (08:48)
[2018-07-30] MEDS: INSULIN ASPART [NOVOLOG] 3 ML PEN SC SCH ×7 (08:51→21:00)
[2018-07-30] MEDS: ONDANSETRON 4 MG INJ IV PRN (08:55)
[2018-07-30] MEDS ORDERED: GABAPENTIN 300 MG CAP PO SCH (09:00)
--- NOTE | 2018-07-30 14:18 | PN ---
Date/Time of Note Date/Time of Note DATE: 07/30/18 TIME: 14:10 Assessment/Plan VTE Prophylaxis Risk score (from [facility])>0 risk: 2 SCD applied (from [facility]): Yes Pharmacological prophylaxis: other (scd's in place) Lines/Catheters IV Catheter Type (from [facility]): Mid Line Urinary Cath still in place: No Assessment/Plan Hospital Course Assessment and plan 1. Sepsis. Suspect polynephritis. - Continue antibiotics. - ID consult follow. - Follow-up on cultures. 2. Acute kidney injury. - Monitor renal panel. - Will get cloth beamer pending clinical course. - Continue hydration for now. 3. Diabetes. - A1c 10.1. - Will get diabetic consultation 4. High cholesterol. - Continue on statin medication. 5. History of BPH. - Continue on Proscar 6. Hypertension. -Will provide antihypertensives and adjust as needed. 7. Hyponatremia. - Monitor level. hydrochlorothiazide was stopped. Disposition and plan. We will get certified adapted physical educator to follow. ID consult consulted. Continue with antibiotics. Monitor for improvement. Discussed plan of care with Dr. Chatterjee Result Diagram: 07/30/18 0454 07/30/18 0454 Results 24hrs Laboratory Tests Test 07/29/18 17:45 07/29/18 21:26 07/30/18 01:47 07/30/18 04:54 Bedside Glucose 256 H 184 193 White Blood Count 15.2 H Red Blood Count 3.58 L Hemoglobin 8.9 L Hematocrit 28.0 L Mean Corpuscular 78.2 L Volume Mean Corpuscular 24.9 L Hemoglobin Mean Corpuscular 31.8 L Hemoglobin Concent Red Cell 14.5 Distribution Width Platelet Count 391 Mean Platelet Volume 9.0 Immature 0.800 H Granulocytes % Neutrophils % 72.8 Lymphocytes % 17.5 Monocytes % 7.3 Eosinophils % 1.3 Basophils % 0.3 Nucleated Red Blood 0.0 Cells % Immature 0.120 H Granulocytes # Neutrophils # 11.0 H Lymphocytes # 2.7 Monocytes # 1.1 H Eosinophils # 0.2 Basophils # 0.1 Nucleated Red Blood 0.0 Cells # Sodium Level 131 L Potassium Level 5.2 H Chloride Level 100 Carbon Dioxide Level 24 Anion Gap 7 Blood Urea Nitrogen 28 H Creatinine 1.39 H Est Glomerular 52 L Filtrat Rate mL/min Glucose Level 184 # Hemoglobin A1c 10.1 H Calcium Level 8.7 Magnesium Level 2.0 Total Bilirubin 0.6 Direct Bilirubin 0.00 Indirect Bilirubin 0.6 Aspartate Amino 31 Transf (AST/SGOT) Alanine 54 Aminotransferase (AL T/SGPT) Alkaline Phosphatase 227 H Total Protein 6.5 # Albumin 3.2 L Globulin 3.30 H Albumin/Globulin 0.96 Ratio Triglycerides Level 90 Cholesterol Level 111 LDL Cholesterol, 75 Calculated HDL Cholesterol 18 L Cholesterol/HDL 6.1 Ratio Test 07/30/18 08:47 07/30/18 13:16 Bedside Glucose 228 H 170 Subjective 24 Hr Interval Summary Free Text/Dictation Patient reports having urinary frequency. Denies any dysuria at this time. Exam/Review of Systems Exam Vitals Vital Signs Date Temp Pulse Resp B/P (MAP) Pulse Ox O2 O2 Flow FiO2 Time Delivery Rate 07/30/18 98.7 86 17 124/59 94 Room Air 08:03 (80) Intake and Output 07/29/18 07/29/18 07/30/18 1515:00 23:00 07:00 IntakeIntake Total 2190 ml 580 ml 50 ml OutputOutput Total 3 ml BalanceBalance 2190 ml 580 ml 47 ml Constitutional: alert, oriented Psych: nl mood/affect Eyes: nl conjunctiva Respiratory: clear to auscultation Cardiovascular: other (regular rate) Gastrointestinal: soft; No tender Neurological: TOOL KEEPER II-XII intact, nl mental status, nl speech Results Results 24hrs Laboratory Tests Test 07/29/18 17:45 07/29/18 21:26 07/30/18 01:47 07/30/18 04:54 Bedside Glucose 256 H 184 193 White Blood Count 15.2 H Red Blood Count 3.58 L Hemoglobin 8.9 L Hematocrit 28.0 L Mean Corpuscular 78.2 L Volume Mean Corpuscular 24.9 L Hemoglobin Mean Corpuscular 31.8 L Hemoglobin Concent Red Cell 14.5 Distribution Width Platelet Count 391 Mean Platelet Volume 9.0 Immature 0.800 H Granulocytes % Neutrophils % 72.8 Lymphocytes % 17.5 Monocytes % 7.3 Eosinophils % 1.3 Basophils % 0.3 Nucleated Red Blood 0.0 Cells % Immature 0.120 H Granulocytes # Neutrophils # 11.0 H Lymphocytes # 2.7 Monocytes # 1.1 H Eosinophils # 0.2 Basophils # 0.1 Nucleated Red Blood 0.0 Cells # Sodium Level 131 L Potassium Level 5.2 H Chloride Level 100 Carbon Dioxide Level 24 Anion Gap 7 Blood Urea Nitrogen 28 H Creatinine 1.39 H Est Glomerular 52 L Filtrat Rate mL/min Glucose Level 184 # Hemoglobin A1c 10.1 H Calcium Level 8.7 Magnesium Level 2.0 Total Bilirubin 0.6 Direct Bilirubin 0.00 Indirect Bilirubin 0.6 Aspartate Amino 31 Transf (AST/SGOT) Alanine 54 Aminotransferase (AL T/SGPT) Alkaline Phosphatase 227 H Total Protein 6.5 # Albumin 3.2 L Globulin 3.30 H Albumin/Globulin 0.96 Ratio Triglycerides Level 90 Cholesterol Level 111 LDL Cholesterol, 75 Calculated HDL Cholesterol 18 L Cholesterol/HDL 6.1 Ratio Test 07/30/18 08:47 07/30/18 13:16 Bedside Glucose 228 H 170 Medications Medication Current Medications Aspirin (Halfprin) 81 mg DAILY PO Last administered on 07/30/18 08:48; Admin Dose 81 MG; Start 07/30/18 at 09:00 Atorvastatin Calcium (Lipitor) 80 mg QHS PO Last administered on 07/29/18 21:30; Admin Dose 80 MG; Start 07/29/18 at 21:00 Finasteride (Proscar) 5 mg DAILY PO Last administered on 07/30/18 08:48; Admin Dose 5 MG; Start 07/30/18 at 09:00 Gabapentin (Neurontin) 300 mg DAILY PO Last administered on 07/30/18 08:48; Admin Dose 300 MG; Start 07/30/18 at 09:00 Tamsulosin HCl (Flomax) 0.4 mg HS PO Last administered on 07/29/18 21:30; Admin Dose 0.4 MG; Start 07/29/18 at 21:00 Meropenem/Sodium Chloride 50 ml @ 100 mls/hr Q8 IVPB Last administered on 07/30/18 13:27; Admin Dose 100 MLS/HR; Start 07/29/18 at 15:30 IV Flush (NS 3 ml) 3 ml PER PROTOCOL IV ; Start 07/29/18 at 15:30 Ondansetron HCl (Zofran Inj) 4 mg Q6H PRN IV NAUSEA/VOMITING Last administered on 07/30/18 08:55; Admin Dose 4 MG; Start 07/29/18 at 15:30 Acetaminophen (Tylenol Tab) 650 mg Q6H PRN PO .PAIN 1-3 OR TEMP; Start 07/29/18 at 15:30 Diagnostic Test (Pha) (Accu-Chek) 1 ea 02 XX ; Start 07/30/18 at 02:00 Insulin Glargine (Lantus) 10 units DAILY@2000 SC Last administered on 07/29/18at 21:28; Admin Dose 10 UNITS; Start 07/29/18 at 20:00 Insulin Aspart (Novolog Insulin Pen) 3 unit WITH MEALS SC Last administered on 07/30/18at 13:23; Admin Dose 3 UNIT; Start 07/29/18 at 18:00 Insulin Aspart (Novolog Insulin Pen) NOVOLOG *MILD* ALGORITHM WITH MEALS BEDTIME SC Last administered on 07/30/18at 13:25; Admin Dose 1 UNIT; Start 07/29/18 at 18:00 Miscellaneous Information 1 ea NOTE XX ; Start 07/29/18 at 16:00 Glucose (Glutose) 15 gm Q15M PRN PO DECREASED GLUCOSE; Start 07/29/18 at 16:00 Glucose (Glutose) 22.5 gm Q15M PRN PO DECREASED GLUCOSE; Start 07/29/18 at 16:00 Dextrose (D50w Syringe) 25 ml Q15M PRN IV DECREASED GLUCOSE; Start 07/29/18 at 16:00 Dextrose (D50w Syringe) 50 ml Q15M PRN IV DECREASED GLUCOSE; Start 07/29/18 at 16:00 Glucagon (Glucagen) 1 mg Q15M PRN IM DECREASED GLUCOSE; Start 07/29/18 at 16:00 Glucose (Glutose) 15 gm Q15M PRN BUCCAL DECREASED GLUCOSE; Start 07/29/18 at 16 :00 Morphine Sulfate (morphine) 2 mg Q4H PRN IV SEVERE PAIN LEVEL 7-10 Last administered on 07/29/18at 22:49; Admin Dose 2 MG; Start 07/29/18 at 17:30 Hydromorphone HCl (Dilaudid) 2 mg Q4H PRN PO SEVERE PAIN LEVEL 7-10 Last administered on 07/30/18at 04:27; Admin Dose 2 MG; Start 07/30/18 at 01:00 LANDON WAGGONER NP July 30, 2018 14:18
[2018-07-30 14:22] VITALS: BP 140/65; PULSE 79; RESP 18
[2018-07-30] MEDS: SOD CHLORIDE 0.9% 1,000 ML IV SCH (14:30)
[2018-07-30] MEDS ORDERED: METOCLOPRAMIDE 10 MG INJ IV PRN (14:30)
[2018-07-30] MEDS: HYDROmorphONE 1 MG/ML SYG IV PRN (17:44)
[2018-07-30 20:00] VITALS: BP 141/63; PULSE 91; RESP 18
[2018-07-30] MEDS: TAMSULOSIN (SR) 0.4 MG CAP PO SCH (21:55)
[2018-07-30] MEDS: ATORVASTATIN 80 MG TAB PO SCH (21:55)
[2018-07-30] MEDS: INSULIN GLARGINE [LANTus] (100 UNITS/ML) SYG SC SCH (21:57)
[2018-07-30] MEDS: GABAPENTIN 300 MG CAP PO SCH (22:56)
[2018-07-31] MEDS: HYDROmorphONE 1 MG/ML SYG IV PRN ×4 (01:09→22:20)
[2018-07-31] MEDS: ONDANSETRON 4 MG INJ IV PRN ×4 (01:09→22:20)
[2018-07-31] MEDS: ACCU-CHEK XX SCH (02:00)
[2018-07-31 02:10] VITALS: BP 134/62; PULSE 96; RESP 18
[2018-07-31] MEDS: MEROPENEM 1 GM/50ML(PMX) 50 ML IVPB SCH (05:45)
[2018-07-31] MEDS: SOD CHLORIDE 0.9% 1,000 ML IV SCH ×3 (05:46→23:50)
[2018-07-31 07:39] VITALS: BP 140/64; PULSE 92; RESP 16
[2018-07-31] MEDS: INSULIN ASPART [NOVOLOG] 3 ML PEN SC SCH ×7 (08:00→20:49)
[2018-07-31] MEDS: ASPIRIN (EC) 81 MG TAB PO SCH (08:27)
[2018-07-31] MEDS: GABAPENTIN 300 MG CAP PO SCH ×3 (08:27→20:46)
[2018-07-31] MEDS: FINASTERIDE 5 MG TAB PO SCH (08:27)
--- NOTE | 2018-07-31 11:46 | CONS ---
Assessment/Plan Assessment/Plan Hospital Course (Demo Recall) ID PRELMINARY CONSULT NOTE CURRENT ABX: DAY #3=>MERREM 07/30/18 0454 07/30/18 0454 Hx of Present Illness 63-yo M w/PMHx of diabetes, BPH, recommend urinary tract infection causing sepsis, hypertension, dyslipidemia, w/2 day duration of fever/chills sent to ER for treatment for a"bug in his urine"...found w/sepsis/uti 24H INTERVAL SUMMARY * Lethargic 63 yo M looks older than numeric age, VSS, NAD, Tmax 99.2 today, WBC stable, without dyspnea on observation, no complaints on arousal IMAGING * 07/29/18 CXR: IMPRESSION: 1. No radiographic evidence of an acute cardiopulmonary process. 2. Aortic atherosclerosis. MICRO/OTHER * 07/29/18 BCX (-) * 07/29/18 URINE CX: URINE CULTURE Final Organism 1 ESCHERICHIA COLI (ESBL) COLONY COUNT >100,000 CFU/ml . MULTI DRUG RESISTANT ORGANISM ECOLI ESBL ECOLI ESBL M.I.C. RX M.I.C. RX --------- --- --------- --- AMPICILLIN >=32 R CEFAZOLIN R CEFEPIME <=1 S CEFOTAXIME R CIPROFLOXACIN >=4 R GENTAMICIN <=1 S LEVOFLOXACIN >=8 R MEROPENEM 0.012 S NITROFURANTOIN <=16 S TOBRAMYCIN <=1 S TRIMETHOPRIM/SULFAMETHOXAZOLE >=320 R PIPERACILLIN/TAZOBACTAM <=4 S PHYSICAL EXAMINATION: GENERAL: VSS, NAD, lethargic, low grade temps HEENT: AT, NC, pale NECK: WNL CHEST: Equal chest rise bilaterally without dyspnea on observation ABD: Soft, ND EXTREMITIES: Warm, dry SKIN: No rash, no diaphoresis ID ASSESSMENT 74 yo M admit with: Sepsis * Source: Pyelonephritis/UTI Pyelonephritis, Recurrent BPH w/lower urinary tract symptoms -- on meds Acute kidney injury, likely secondary to hemodynamics versus ACEi/HCTZ Hypertension DMII Dyslipidemia Hyponatremia, likely thiazide effect Chronic anemia GERD Hx of back surgery x2 w/chronic pain syndrome (?)MRSA Nares ABX ALLERGIES: None to ABX INVASIVES: PIV CURRENT ABX: DAY # 3=>MERREM ID RECOMMENDATIONS/PLAN: 1. Change MERREM to Ertapenem 1gm IVPB x total 7 days 2. May DC on above ABX when afebrile x 48H with downtrend in WBC count per primary care clearance . Thank you -- report called to Dr. Bell who concurs. . Consultation Date/Type/Reason Admit Date/Time July 30, 2018 at 08:40 Initial Consult Date Date/Time of Note DATE: 07/31/18 TIME: 11:29 Exam/Review of Systems Exam Vitals Vital Signs Date Temp Pulse Resp B/P (MAP) Pulse Ox O2 O2 Flow FiO2 Time Delivery Rate 07/31/18 99.2 92 16 140/64 98 07:39 (89) 07/30/18 Room Air 14:22 Intake and Output 07/30/18 07/30/18 07/31/18 1515:00 23:00 07:00 IntakeIntake Total 120 ml 830 ml 725 ml BalanceBalance 120 ml 830 ml 725 ml Results Result Diagram: 07/30/18 0454 07/30/18 0454 Results 24hrs Laboratory Tests Test 07/30/18 13:16 07/30/18 17:54 07/30/18 21:53 07/31/18 08:25 Bedside Glucose 170 145 133 105 Medications Medication Current Medications Aspirin (Halfprin) 81 mg DAILY PO Last administered on 07/31/18at 08:27; Admin Dose 81 MG; Start 07/30/18 at 09:00 Atorvastatin Calcium (Lipitor) 80 mg QHS PO Last administered on 07/30/18 21:55; Admin Dose 80 MG; Start 07/29/18 at 21:00 Finasteride (Proscar) 5 mg DAILY PO Last administered on 07/30/18at 08:48; Admin Dose 5 MG; Start 07/30/18 at 09:00 Tamsulosin HCl (Flomax) 0.4 mg HS PO Last administered on 07/30/18at 21:55; Admin Dose 0.4 MG; Start 07/29/18 at 21:00 Meropenem/Sodium Chloride 50 ml @ 100 mls/hr Q8 IVPB Last administered on 07/31/18at 05:45; Admin Dose 100 MLS/HR; Start 07/29/18 at 15:30 IV Flush (NS 3 ml) 3 ml PER PROTOCOL IV ; Start 07/29/18 at 15:30 Ondansetron HCl (Zofran Inj) 4 mg Q6H PRN IV NAUSEA/VOMITING Last administered on 07/31/18at 08:34; Admin Dose 4 MG; Start 07/29/18 at 15:30 Acetaminophen (Tylenol Tab) 650 mg Q6H PRN PO .PAIN 1-3 OR TEMP; Start 07/29/18 at 15:30 Diagnostic Test (Pha) (Accu-Chek) 1 ea 02 XX ; Start 07/30/18 at 02:00 Insulin Glargine (Lantus) 10 units DAILY@2000 SC Last administered on 07/30/18at 21:57; Admin Dose 10 UNITS; Start 07/29/18 at 20:00 Insulin Aspart (Novolog Insulin Pen) 3 unit WITH MEALS SC Last administered on 07/31/18at 08:29; Admin Dose 3 UNIT; Start 07/29/18 at 18:00 Insulin Aspart (Novolog Insulin Pen) NOVOLOG *MILD* ALGORITHM WITH MEALS BEDTIME SC Last administered on 07/30/18at 17:57; Admin Dose 1 UNIT; Start 07/29/18 at 18:00 Miscellaneous Information 1 ea NOTE XX ; Start 07/29/18 at 16:00 Glucose (Glutose) 15 gm Q15M PRN PO DECREASED GLUCOSE; Start 07/29/18 at 16:00 Glucose (Glutose) 22.5 gm Q15M PRN PO DECREASED GLUCOSE; Start 07/29/18 at 16:00 Dextrose (D50w Syringe) 25 ml Q15M PRN IV DECREASED GLUCOSE; Start 07/29/18 at 16:00 Dextrose (D50w Syringe) 50 ml Q15M PRN IV DECREASED GLUCOSE; Start 07/29/18 at 16:00 Glucagon (Glucagen) 1 mg Q15M PRN IM DECREASED GLUCOSE; Start 07/29/18 at 16:00 Glucose (Glutose) 15 gm Q15M PRN BUCCAL DECREASED GLUCOSE; Start 07/29/18 at 16:00 Sodium Chloride 1,000 ml @ 60 mls/hr [id number] IV Last administered on 07/31/18 05:46; Admin Dose 60 MLS/HR; Start 07/30/18 at 14:30 Metoclopramide HCl (Reglan) 5 mg Q6H PRN IV nausea Last administered on at 17:44; Admin Dose 5 MG; Start 07/30/18 at 14:30 Hydromorphone HCl (Dilaudid) 1 mg Q6H PRN IV SEVERE PAIN LEVEL 7-10 Last administered on 07/31/18 09:50; Admin Dose 1 MG; Start 07/30/18 at 15:30 Gabapentin (Neurontin) 300 mg TID PO Last administered on 07/31/18 08:27; Admin Dose 300 MG; Start 07/30/18 at 23:00 HARDIK CURTIS NP July 31, 2018 11:43
[2018-07-31] MEDS: ERTAPENEM SODIUM 1 GM in SOD CHLORIDE 0.9% 100 ML IVPB SCH (13:38)
--- NOTE | 2018-07-31 14:42 | PN ---
Date/Time of Note Date/Time of Note DATE: 07/31/18 TIME: 14:13 Assessment/Plan VTE Prophylaxis Risk score (from [facility])>0 risk: 2 SCD applied (from [facility]): Yes Pharmacological prophylaxis: other Lines/Catheters IV Catheter Type (from [facility]): Mid Line Urinary Cath still in place: No Assessment/Plan Hospital Course Assessment and plan 1. Sepsis. Suspect polynephritis. - Continue antibiotics. - ID consult follow. - culture showing esbl. 2. Acute kidney injury. - Monitor renal panel. - Will get reliability specialist pending clinical course. - Continue hydration for now. - f/u renal panel 3. Diabetes. - A1c 10.1. - continue insulin regimen 4. High cholesterol. - Continue on statin medication. 5. History of BPH. - Continue on Proscar 6. Hypertension. -Will provide antihypertensives and adjust as needed. 7. Hyponatremia. - Monitor level. hydrochlorothiazide was stopped. Disposition and plan. continue abx. afebrile at present. plan for d/c home on ertapenem 1gm ivpb x 7 days total per ID. will f/u case management Discussed plan of care with Dr. Chatterjee Result Diagram: 07/30/18 0454 07/30/18 0454 Results 24hrs Laboratory Tests Test 07/30/18 17:54 07/30/18 21:53 07/31/18 08:25 07/31/18 13:19 Bedside Glucose 145 133 105 140 Subjective 24 Hr Interval Summary Free Text/Dictation no s/s of distress. reports less dysuria today Exam/Review of Systems Exam Vitals Vital Signs Date Temp Pulse Resp B/P (MAP) Pulse Ox O2 O2 Flow FiO2 Time Delivery Rate 07/31/18 99.2 92 16 140/64 98 07:39 (89) 07/30/18 Room Air 14:22 Intake and Output 07/30/18 07/30/18 07/31/18 1515:00 23:00 07:00 IntakeIntake Total 120 ml 830 ml 725 ml BalanceBalance 120 ml 830 ml 725 ml Exam Constitutional: alert, oriented Psych: nl mood/affect Eyes: nl conjunctiva Respiratory: clear to auscultation Cardiovascular: other (regular rate) Gastrointestinal: soft; No tender Neurological: SAP TECHNICAL ARCHITECT II-XII intact, nl mental status, nl speech Results Results 24hrs Laboratory Tests Test 07/30/18 17:54 07/30/18 21:53 07/31/18 08:25 07/31/18 13:19 Bedside Glucose 145 133 105 140 Medications Medication Current Medications Aspirin (Halfprin) 81 mg DAILY PO Last administered on 07/31/18 08:27; Admin Dose 81 MG; Start 07/30/18 at 09:00 Atorvastatin Calcium (Lipitor) 80 mg QHS PO Last administered on 07/30/18 21:55; Admin Dose 80 MG; Start 07/29/18 at 21:00 Finasteride (Proscar) 5 mg DAILY PO Last administered on 07/30/18 08:48; Admin Dose 5 MG; Start 07/30/18 at 09:00 Tamsulosin HCl (Flomax) 0.4 mg HS PO Last administered on 07/30/18 21:55; Admin Dose 0.4 MG; Start 07/29/18 at 21:00 IV Flush (NS 3 ml) 3 ml PER PROTOCOL IV ; Start 07/29/18 at 15:30 Ondansetron HCl (Zofran Inj) 4 mg Q6H PRN IV NAUSEA/VOMITING Last administered on 07/31/18 08:34; Admin Dose 4 MG; Start 07/29/18 at 15:30 Acetaminophen (Tylenol Tab) 650 mg Q6H PRN PO .PAIN 1-3 OR TEMP; Start 07/29/18 at 15:30 Diagnostic Test (Pha) (Accu-Chek) 1 ea 02 XX ; Start 07/30/18 at 02:00 Insulin Glargine (Lantus) 10 units DAILY@2000 SC Last administered on 07/30/18 21:57; Admin Dose 10 UNITS; Start 07/29/18 at 20:00 Insulin Aspart (Novolog Insulin Pen) 3 unit WITH MEALS SC Last administered on 07/31/18 13:41; Admin Dose 3 UNIT; Start 07/29/18 at 18:00 Insulin Aspart (Novolog Insulin Pen) NOVOLOG *MILD* ALGORITHM WITH MEALS BEDTIME SC Last administered on 07/30/18 17:57; Admin Dose 1 UNIT; Start 07/29/18 at 18:00 Miscellaneous Information 1 ea NOTE XX ; Start 07/29/18 at 16:00 Glucose (Glutose) 15 gm Q15M PRN PO DECREASED GLUCOSE; Start 07/29/18 at 16:00 Glucose (Glutose) 22.5 gm Q15M PRN PO DECREASED GLUCOSE; Start 07/29/18 at 16:00 Dextrose (D50w Syringe) 25 ml Q15M PRN IV DECREASED GLUCOSE; Start 07/29/18 at 16:00 Dextrose (D50w Syringe) 50 ml Q15M PRN IV DECREASED GLUCOSE; Start 07/29/18 at 16:00 Glucagon (Glucagen) 1 mg Q15M PRN IM DECREASED GLUCOSE; Start 07/29/18 at 16:00 Glucose (Glutose) 15 gm Q15M PRN BUCCAL DECREASED GLUCOSE; Start 07/29/18 at 16:00 Sodium Chloride 1,000 ml @ 60 mls/hr [id number] IV Last administered on 07/31/18at 05:46; Admin Dose 60 MLS/HR; Start 07/30/18 at 14:30 Metoclopramide HCl (Reglan) 5 mg Q6H PRN IV nausea Last administered on 07/30/18at 17:44; Admin Dose 5 MG; Start 07/30/18 at 14:30 Hydromorphone HCl (Dilaudid) 1 mg Q6H PRN IV SEVERE PAIN LEVEL 7-10 Last administered on 07/31/18at 09:50; Admin Dose 1 MG; Start 07/30/18 at 15:30 Gabapentin (Neurontin) 300 mg TID PO Last administered on 07/31/18at 13:24; Admin Dose 300 MG; Start 07/30/18 at 23:00 Ertapenem 1 gm/ Sodium Chloride 100 ml @ 200 mls/hr Q24H IVPB Last administered on 07/31/18at 13:38; Admin Dose 200 MLS/HR; Start 07/31/18 at 13:00; Stop 08/07/18 at 12:59 LANDON WAGGONER NP July 31, 2018 14:23
[2018-07-31 15:35] VITALS: BP 144/66; PULSE 95; RESP 16
[2018-07-31 20:00] VITALS: BP 144/64; PULSE 90; RESP 18
[2018-07-31] MEDS: ATORVASTATIN 80 MG TAB PO SCH (20:46)
[2018-07-31] MEDS: INSULIN GLARGINE [LANTus] (100 UNITS/ML) SYG SC SCH (20:48)
[2018-07-31] MEDS: TAMSULOSIN (SR) 0.4 MG CAP PO SCH (20:51)
[2018-08-01 02:00] VITALS: BP 159/68; PULSE 90; RESP 18
[2018-08-01] MEDS: ACCU-CHEK XX SCH (02:00)
[2018-08-01] MEDS: ACETAMINOPHEN 325 MG TAB PO PRN ×3 (02:46→23:32)
[2018-08-01] MEDS: SOD CHLORIDE 0.9% 1,000 ML IV SCH ×3 (05:13→21:44)
[2018-08-01] MEDS: HYDROmorphONE 1 MG/ML SYG IV PRN ×3 (05:45→19:50)
[2018-08-01] MEDS: ONDANSETRON 4 MG INJ IV PRN ×2 (05:45→19:50)
[2018-08-01 07:44] VITALS: BP 131/62; PULSE 77; RESP 18
[2018-08-01] MEDS: ASPIRIN (EC) 81 MG TAB PO SCH (08:13)
[2018-08-01] MEDS: GABAPENTIN 300 MG CAP PO SCH ×3 (08:13→21:00)
[2018-08-01] MEDS: INSULIN ASPART [NOVOLOG] 3 ML PEN SC SCH ×7 (08:16→21:02)
[2018-08-01] MEDS: FINASTERIDE 5 MG TAB PO SCH (08:17)
[2018-08-01 08:26] VITALS: BP 167/74; PULSE 67; RESP 18
[2018-08-01] MEDS ORDERED: INSU100I33 SC (09:07)
[2018-08-01] MEDS ORDERED: INSU100I12 SQ (09:07)
[2018-08-01] MEDS ORDERED: ERTA1VIA3 IM (09:07)
--- NOTE | 2018-08-01 13:09 | PN ---
Date/Time of Note Date/Time of Note DATE: 08/01/18 TIME: 13:07 Assessment/Plan VTE Prophylaxis Risk score (from [facility] [place]0 risk: 3 SCD applied (from Ns): Yes Pharmacological prophylaxis: other Lines/Catheters IV C[facility]ter Type (from [facility] midline Urinary Cath still in place: No Assessment/Plan Hospital Course Assessment and plan 1. Sepsis. Suspect polynephritis. - Continue antibiotics. - ID consult follow. - culture showing esbl. 2. Acute kidney injury. - Monitor renal panel. 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 - Continue hydration for now. - monitor renal panel - avoid nephrotoxic medications as possible 3. Diabetes. - A1c 10.1. - continue insulin regimen 4. High cholesterol. - Continue on statin medication. 5. History of BPH. - Continue on Proscar 6. Hypertension. -Will provide antihypertensives and adjust as needed. 7. Hyponatremia. - Monitor level. hydrochlorothiazide was stopped. Disposition and plan. continue abx. afebrile at present. plan for d/c home on ertapenem regimen per ID. awaiting set up per case management. Discussed plan of care with Dr. Chatterjee Result Diagram: 08/01/18 0545 08/01/18 0545 Results 24hrs Laboratory Tests Test 07/31/18 13:19 07/31/18 15:56 07/31/18 18:18 07/31/18 20:45 Bedside Glucose 140 166 220 White Blood Count 13.6 H Red Blood Count 3.35 L Hemoglobin 8.5 L Hematocrit 26.5 L Mean Corpuscular 79.1 L Volume Mean Corpuscular 25.4 L Hemoglobin Mean Corpuscular 32.1 Hemoglobin Concent Red Cell 14.3 Distribution Width Platelet Count 376 Mean Platelet Volume 9.0 Immature 0.500 H Granulocytes % Neutrophils % 78.6 H Lymphocytes % 13.0 L Monocytes % 6.0 Eosinophils % 1.6 Basophils % 0.3 Nucleated Red Blood 0.0 Cells % Immature 0.070 H Granulocytes # Neutrophils # 10.7 H Lymphocytes # 1.8 Monocytes # 0.8 Eosinophils # 0.2 Basophils # 0.0 Nucleated Red Blood 0.0 Cells # Sodium Level 130 L Potassium Level 5.0 Chloride Level 97 Carbon Dioxide Level 24 Anion Gap 9 Blood Urea Nitrogen 28 H Creatinine 1.45 H Est Glomerular 49 L Filtrat Rate mL/min Glucose Level 165 Hemoglobin A1c 10.4 H Calcium Level 8.5 Total Bilirubin 0.4 Direct Bilirubin 0.00 Indirect Bilirubin 0.4 Aspartate Amino 46 Transf (AST/SGOT) Alanine 56 Aminotransferase (AL T/SGPT) Alkaline Phosphatase 355 #H Total Protein 6.6 Albumin 2.9 L Globulin 3.70 H Albumin/Globulin 0.78 Ratio Test 08/01/18 02:47 08/01/18 05:45 08/01/18 08:11 Bedside Glucose 143 144 White Blood Count 12.7 H Red Blood Count 3.44 L Hemoglobin 8.7 L Hematocrit 27.1 L Mean Corpuscular 78.8 L Volume Mean Corpuscular 25.3 L Hemoglobin Mean Corpuscular 32.1 Hemoglobin Concent Red Cell 14.2 Distribution Width Platelet Count 389 Mean Platelet Volume 8.7 Immature 0.600 H Granulocytes % Neutrophils % 66.9 Lymphocytes % 22.7 Monocytes % 6.8 Eosinophils % 2.6 Basophils % 0.4 Nucleated Red Blood 0.0 Cells % Immature 0.070 H Granulocytes # Neutrophils # 8.5 H Lymphocytes # 2.9 Monocytes # 0.9 Eosinophils # 0.3 Basophils # 0.1 Nucleated Red Blood 0.0 Cells # Sodium Level 131 L Potassium Level 4.4 Chloride Level 98 Carbon Dioxide Level 26 Anion Gap 7 Blood Urea Nitrogen 27 H Creatinine 1.44 H Est Glomerular 50 L Filtrat Rate mL/min Glucose Level 164 Uric Acid 4.8 Calcium Level 8.7 Subjective 24 Hr Interval Summary Free Text/Dictation no s/s of distress. 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 intact, nl mental status, nl speech Results Results 24hrs Laboratory Tests Test 07/31/18 13:19 07/31/18 15:56 07/31/18 18:18 07/31/18 20:45 Bedside Glucose 140 166 220 White Blood Count 13.6 H Red Blood Count 3.35 L Hemoglobin 8.5 L Hematocrit 26.5 L Mean Corpuscular 79.1 L Volume Mean Corpuscular 25.4 L Hemoglobin Mean Corpuscular 32.1 Hemoglobin Concent Red Cell 14.3 Distribution Width Platelet Count 376 Mean Platelet Volume 9.0 Immature 0.500 H Granulocytes % Neutrophils % 78.6 H Lymphocytes % 13.0 L Monocytes % 6.0 Eosinophils % 1.6 Basophils % 0.3 Nucleated Red Blood 0.0 Cells % Immature 0.070 H Granulocytes # Neutrophils # 10.7 H Lymphocytes # 1.8 Monocytes # 0.8 Eosinophils # 0.2 Basophils # 0.0 Nucleated Red Blood 0.0 Cells # Sodium Level 130 L Potassium Level 5.0 Chloride Level 97 Carbon Dioxide Level 24 Anion Gap 9 Blood Urea Nitrogen 28 H Creatinine 1.45 H Est Glomerular 49 L Filtrat Rate mL/min Glucose Level 165 Hemoglobin A1c 10.4 H Calcium Level 8.5 Total Bilirubin 0.4 Direct Bilirubin 0.00 Indirect Bilirubin 0.4 Aspartate Amino 46 Transf (AST/SGOT) Alanine 56 Aminotransferase (AL T/SGPT) Alkaline Phosphatase 355 #H Total Protein 6.6 Albumin 2.9 L Globulin 3.70 H Albumin/Globulin 0.78 Ratio Test 08/01/18 02:47 08/01/18 05:45 08/01/18 08:11 Bedside Glucose 143 144 White Blood Count 12.7 H Red Blood Count 3.44 L Hemoglobin 8.7 L Hematocrit 27.1 L Mean Corpuscular 78.8 L Volume Mean Corpuscular 25.3 L Hemoglobin Mean Corpuscular 32.1 Hemoglobin Concent Red Cell 14.2 Distribution Width Platelet Count 389 Mean Platelet Volume 8.7 Immature 0.600 H Granulocytes % Neutrophils % 66.9 Lymphocytes % 22.7 Monocytes % 6.8 Eosinophils % 2.6 Basophils % 0.4 Nucleated Red Blood 0.0 Cells % Immature 0.070 H Granulocytes # Neutrophils # 8.5 H Lymphocytes # 2.9 Monocytes # 0.9 Eosinophils # 0.3 Basophils # 0.1 Nucleated Red Blood 0.0 Cells # Sodium Level 131 L Potassium Level 4.4 Chloride Level 98 Carbon Dioxide Level 26 Anion Gap 7 Blood Urea Nitrogen 27 H Creatinine 1.44 H Est Glomerular 50 L Filtrat Rate mL/min Glucose Level 164 Uric Acid 4.8 Calcium Level 8.7 Medications Medication Current Medications Aspirin (Halfprin) 81 mg DAILY PO Last administered on 08/01/18 08:13; Admin Dose 81 MG; Start 07/30/18 at 09:00 Atorvastatin Calcium (Lipitor) 80 mg QHS PO Last administered on 07/31/18 20:46; Admin Dose 80 MG; Start 07/29/18 at 21:00 Finasteride (Proscar) 5 mg DAILY PO Last administered on 07/30/18 08:48; Admin Dose 5 MG; Start 07/30/18 at 09:00 Tamsulosin HCl (Flomax) 0.4 mg HS PO Last administered on 07/30/18 21:55; Admin Dose 0.4 MG; Start 07/29/18 at 21:00 IV Flush (NS 3 ml) 3 ml PER PROTOCOL IV ; Start 07/29/18 at 15:30 Ondansetron HCl (Zofran Inj) 4 mg Q6H PRN IV NAUSEA/VOMITING Last administered on 08/01/18 05:45; Admin Dose 4 MG; Start 07/29/18 at 15:30 Acetaminophen (Tylenol Tab) 650 mg Q6H PRN PO .PAIN 1-3 OR TEMP Last administered on 08/01/18 02:46; Admin Dose 650 MG; Start 07/29/18 at 15:30 Diagnostic Test (Pha) (Accu-Chek) 1 ea 02 XX ; Start 07/30/18 at 02:00 Insulin Glargine (Lantus) 10 units DAILY@2000 SC Last administered on 07/31/18 20:48; Admin Dose 10 UNITS; Start 07/29/18 at 20:00 Insulin Aspart (Novolog Insulin Pen) 3 unit WITH MEALS SC Last administered on 08/01/18 08:16; Admin Dose 3 UNIT; Start 07/29/18 at 18:00 Insulin Aspart (Novolog Insulin Pen) NOVOLOG *MILD* ALGORITHM WITH MEALS BEDTIME SC Last administered on 08/01/18 08:17; Admin Dose 1 UNIT; Start 07/29/18 at 18:00 Miscellaneous Information 1 ea NOTE XX ; Start 07/29/18 at 16:00 Glucose (Glutose) 15 gm Q15M PRN PO DECREASED GLUCOSE; Start 07/29/18 at 16:00 Glucose (Glutose) 22.5 gm Q15M PRN PO DECREASED GLUCOSE; Start 07/29/18 at 16: 00 Dextrose (D50w Syringe) 25 ml Q15M PRN IV DECREASED GLUCOSE; Start 07/29/18 at 16:00 Dextrose (D50w Syringe) 50 ml Q15M PRN IV DECREASED GLUCOSE; Start 07/29/18 at 16:00 Glucagon (Glucagen) 1 mg Q15M PRN IM DECREASED GLUCOSE; Start 07/29/18 at 16:00 Glucose (Glutose) 15 gm Q15M PRN BUCCAL DECREASED GLUCOSE; Start 07/29/18 at 16:00 Sodium Chloride 1,000 ml @ 60 mls/hr [id number] IV Last administered on 08/01/18at 05:13; Admin Dose 60 MLS/HR; Start 07/30/18 at 14:30 Metoclopramide HCl (Reglan) 5 mg Q6H PRN IV nausea Last administered on 07/30/18at 17:44; Admin Dose 5 MG; Start 07/30/18 at 14:30 Hydromorphone HCl (Dilaudid) 1 mg Q6H PRN IV SEVERE PAIN LEVEL 7-10 Last administered on 08/01/18at 05:45; Admin Dose 1 MG; Start 07/30/18 at 15:30 Gabapentin (Neurontin) 300 mg TID PO Last administered on 08/01/18at 08:13; Admin Dose 300 MG; Start 07/30/18 at 23:00 Ertapenem 1 gm/ Sodium Chloride 100 ml @ 200 mls/hr Q24H IVPB Last administered on 07/31/18at 13:38; Admin Dose 200 MLS/HR; Start 07/31/18 at 13:00; Stop 08/07/18 at 12:59 LANDON WAGGONER NP August 01, 2018 13:09
[2018-08-01] MEDS: ERTAPENEM SODIUM 1 GM in SOD CHLORIDE 0.9% 100 ML IVPB SCH (13:13)
[2018-08-01 13:21] VITALS: BP 167/73; PULSE 90; RESP 18
[2018-08-01] MEDS: AMLODIPINE 5 MG TAB PO SCH (15:19)
--- NOTE | 2018-08-01 17:17 | CONS ---
Assessment/Plan Assessment/Plan Hospital Course (Demo Recall) ID PRELMINARY CONSULT NOTE CURRENT ABX: DAY #4=>Ertapenem 08/01/18 0545 08/01/18 0545 24H INTERVAL SUMMARY * Renal US with subacute right subcapsular hematoma w/mild hydronephrosis -- uncertain significance * Patient is stable, NAD, afebrile, WBC down slightly today, without dyspnea on observation IMAGING * 07/31/18 RENAL US: IMPRESSION: Subacute right subcapsular hematoma. Mild left hydronephrosis. A ureteral jet was documented. * 07/29/18 CXR: IMPRESSION: 1. No radiographic evidence of an acute cardiopulmonary process. 2. Aortic atherosclerosis. MICRO/OTHER * 07/29/18 BCX (-) * 07/29/18 URINE CX: URINE CULTURE Final Organism 1 ESCHERICHIA COLI (ESBL) COLONY COUNT >100,000 CFU/ml . MULTI DRUG RESISTANT ORGANISM ECOLI ESBL ECOLI ESBL M.I.C. RX M.I.C. RX --------- --- --------- --- AMPICILLIN >=32 R CEFAZOLIN R CEFEPIME <=1 S CEFOTAXIME R CIPROFLOXACIN >=4 R GENTAMICIN <=1 S LEVOFLOXACIN >=8 R MEROPENEM 0.012 S NITROFURANTOIN <=16 S TOBRAMYCIN <=1 S TRIMETHOPRIM/SULFAMETHOXAZOLE >=320 R PIPERACILLIN/TAZOBACTAM <=4 S PHYSICAL EXAMINATION: GENERAL: VSS, NAD, lethargic, low grade temps HEENT: AT, NC, pale NECK: WNL CHEST: Equal chest rise bilaterally without dyspnea on observation ABD: Soft, ND EXTREMITIES: Warm, dry SKIN: No rash, no diaphoresis ID ASSESSMENT 74 yo M admit with: Sepsis * Source: Pyelonephritis/UTI Pyelonephritis, Recurrent Renal US with subacute right subcapsular hematoma w/mild hydronephrosis -- uncertain significance BPH w/lower urinary tract symptoms -- on meds Acute kidney injury, likely secondary to hemodynamics versus ACEi/HCTZ Hypertension DMII Dyslipidemia Hyponatremia, likely thiazide effect Chronic anemia GERD Hx of back surgery x2 w/chronic pain syndrome (?)MRSA Nares ABX ALLERGIES: None to ABX INVASIVES: PIV CURRENT ABX: DAY # 4=>Ertapenem ID RECOMMENDATIONS/PLAN: 1. Change MERREM to Ertapenem 1gm IVPB x total 10 days 2. Renal US with subacute right subcapsular hematoma w/mild hydronephrosis -- uncertain significance ? 3. May DC on above ABX when afebrile x 48H with downtrend in WBC count per primary care clearance . Consultation Date/Type/Reason Admit Date/Time July 30, 2018 at 08:40 Initial Consult Date Date/Time of Note DATE: 08/01/18 TIME: 17:11 Exam/Review of Systems Exam Vitals Vital Signs Date Temp Pulse Resp B/P (MAP) Pulse Ox O2 O2 Flow FiO2 Time Delivery Rate 08/01/18 98.6 90 18 167/73 90 13:21 (104) 07/30/18 Room Air 14:22 Intake and Output 07/31/18 07/31/18 08/01/18 1515:00 23:00 07:00 IntakeIntake Total 520 ml 590 ml 650 ml BalanceBalance 520 ml 590 ml 650 ml Results Result Diagram: 08/01/18 0545 08/01/18 0545 Results 24hrs Laboratory Tests Test 07/31/18 18:18 07/31/18 20:45 08/01/18 02:47 08/01/18 05:45 Bedside Glucose 166 220 143 White Blood Count 12.7 H Red Blood Count 3.44 L Hemoglobin 8.7 L Hematocrit 27.1 L Mean Corpuscular 78.8 L Volume Mean Corpuscular 25.3 L Hemoglobin Mean Corpuscular 32.1 Hemoglobin Concent Red Cell 14.2 Distribution Width Platelet Count 389 Mean Platelet Volume 8.7 Immature 0.600 H Granulocytes % Neutrophils % 66.9 Lymphocytes % 22.7 Monocytes % 6.8 Eosinophils % 2.6 Basophils % 0.4 Nucleated Red Blood 0.0 Cells % Immature 0.070 H Granulocytes # Neutrophils # 8.5 H Lymphocytes # 2.9 Monocytes # 0.9 Eosinophils # 0.3 Basophils # 0.1 Nucleated Red Blood 0.0 Cells # Sodium Level 131 L Potassium Level 4.4 Chloride Level 98 Carbon Dioxide Level 26 Anion Gap 7 Blood Urea Nitrogen 27 H Creatinine 1.44 H Est Glomerular 50 L Filtrat Rate mL/min Glucose Level 164 Uric Acid 4.8 Calcium Level 8.7 Test 08/01/18 08:11 08/01/18 13:20 Bedside Glucose 144 219 Medications Medication Current Medications Aspirin (Halfprin) 81 mg DAILY PO Last administered on 08/01/18 08:13; Admin Dose 81 MG; Start 07/30/18 at 09:00 Atorvastatin Calcium (Lipitor) 80 mg QHS PO Last administered on 07/31/18 20: 46; Admin Dose 80 MG; Start 07/29/18 at 21:00 Finasteride (Proscar) 5 mg DAILY PO Last administered on 07/30/18 08:48; Admin Dose 5 MG; Start 07/30/18 at 09:00 Tamsulosin HCl (Flomax) 0.4 mg HS PO Last administered on 07/30/18 21:55; Admin Dose 0.4 MG; Start 07/29/18 at 21:00 IV Flush (NS 3 ml) 3 ml PER PROTOCOL IV ; Start 07/29/18 at 15:30 Ondansetron HCl (Zofran Inj) 4 mg Q6H PRN IV NAUSEA/VOMITING Last administered on 08/01/18 05:45; Admin Dose 4 MG; Start 07/29/18 at 15:30 Acetaminophen (Tylenol Tab) 650 mg Q6H PRN PO .PAIN 1-3 OR TEMP Last administered on 08/01/18 15:01; Admin Dose 650 MG; Start 07/29/18 at 15:30 Diagnostic Test (Pha) (Accu-Chek) 1 ea 02 XX ; Start 07/30/18 at 02:00 Insulin Glargine (Lantus) 10 units DAILY@2000 SC Last administered on 07/31/18 20:48; Admin Dose 10 UNITS; Start 07/29/18 at 20:00 Insulin Aspart (Novolog Insulin Pen) 3 unit WITH MEALS SC Last administered on 08/01/18 13:24; Admin Dose 3 UNIT; Start 07/29/18 at 18:00 Insulin Aspart (Novolog Insulin Pen) NOVOLOG *MILD* ALGORITHM WITH MEALS BEDTIME SC Last administered on 08/01/18 13:24; Admin Dose 2 UNIT; Start 07/29/18 at 18:00 Miscellaneous Information 1 ea NOTE XX ; Start 07/29/18 at 16:00 Glucose (Glutose) 15 gm Q15M PRN PO DECREASED GLUCOSE; Start 07/29/18 at 16:00 Glucose (Glutose) 22.5 gm Q15M PRN PO DECREASED GLUCOSE; Start 07/29/18 at 16:00 Dextrose (D50w Syringe) 25 ml Q15M PRN IV DECREASED GLUCOSE; Start 07/29/18 at 16:00 Dextrose (D50w Syringe) 50 ml Q15M PRN IV DECREASED GLUCOSE; Start 07/29/18 at 16:00 Glucagon (Glucagen) 1 mg Q15M PRN IM DECREASED GLUCOSE; Start 07/29/18 at 16:00 Glucose (Glutose) 15 gm Q15M PRN BUCCAL DECREASED GLUCOSE; Start 07/29/18 at 16:00 Sodium Chloride 1,000 ml @ 60 mls/hr [id number] IV Last administered on 08/01/18 05:13; Admin Dose 60 MLS/HR; Start 07/30/18 at 14:30 Metoclopramide HCl (Reglan) 5 mg Q6H PRN IV nausea Last administered on 07/30/18at 17:44; Admin Dose 5 MG; Start 07/30/18 at 14:30 Hydromorphone HCl (Dilaudid) 1 mg Q6H PRN IV SEVERE PAIN LEVEL 7-10 Last administered on 08/01/18 13:21; Admin Dose 1 MG; Start 07/30/18 at 15:30 Gabapentin (Neurontin) 300 mg TID PO Last administered on 08/01/18at 13:18; A dmin Dose 300 MG; Start 07/30/18 at 23:00 Ertapenem 1 gm/ Sodium Chloride 100 ml @ 200 mls/hr Q24H IVPB Last administered on 08/01/18 13:13; Admin Dose 200 MLS/HR; Start 07/31/18 at 13:00; Stop 08/07/18 at 12:59 Amlodipine Besylate (Norvasc) 5 mg DAILY PO Last administered on 08/01/18 15:19; Admin Dose 5 MG; Start 08/01/18 at 15:30 HARDIK CURTIS NP August 01, 2018 17:17
[2018-08-01 19:32] VITALS: BP 122/58; PULSE 87; RESP 18
[2018-08-01] MEDS: ATORVASTATIN 80 MG TAB PO SCH (20:59)
[2018-08-01] MEDS: TAMSULOSIN (SR) 0.4 MG CAP PO SCH (21:00)
[2018-08-01] MEDS: INSULIN GLARGINE [LANTus] (100 UNITS/ML) SYG SC SCH (21:03)
[2018-08-02 01:23] VITALS: BP 131/60; PULSE 88; RESP 18
[2018-08-02] MEDS: ONDANSETRON 4 MG INJ IV PRN ×3 (01:57→18:28)
[2018-08-02] MEDS: HYDROmorphONE 1 MG/ML SYG IV PRN ×2 (01:57→09:31)
[2018-08-02] MEDS: ACCU-CHEK XX SCH (02:00)
[2018-08-02] MEDS: INSULIN ASPART [NOVOLOG] 3 ML PEN SC SCH ×7 (08:00→20:34)
[2018-08-02 08:16] VITALS: BP 154/70; PULSE 87; RESP 16
[2018-08-02] MEDS: SOD CHLORIDE 0.9% 1,000 ML IV SCH (08:33)
[2018-08-02] MEDS: FINASTERIDE 5 MG TAB PO SCH (09:00)
[2018-08-02] MEDS: ASPIRIN (EC) 81 MG TAB PO SCH (09:29)
[2018-08-02] MEDS: AMLODIPINE 5 MG TAB PO SCH (09:30)
[2018-08-02] MEDS: GABAPENTIN 300 MG CAP PO SCH ×3 (09:31→20:32)
[2018-08-02] MEDS ORDERED: AMLO-147 PO (12:11)
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
--- NOTE | 2018-08-02 12:41 | CONS ---
Assessment/Plan Assessment/Plan Hospital Course (Demo Recall) Summary Assessment and Plan: Assessment: Abnormal CT showing -Several perirectal lymph nodes subtle thinking of the clark of the rectum . R/o rectal malignancy Acute kidney injury. Diabetes, poorly controlled High cholesterol History of BPH Hypertension Plan: Clear liquid diet Colonoscopy tomorrow Npo after 08/03/18 0900 Endoscopy - risks/benefits/alternatives/indications of procedure and sedation/anesthesia discussed with patient who states understanding and gives informed consent to proceed. Patient seen in collaboration with Dr. Brody CC: CHACHA BRODY ; Consultation Date/Type/Reason Admit Date/Time July 30, 2018 at 08:40 Date of Consultation: August 02, 2018 Type of Consult GI Reason for Consultation Abnormal CT abd/pelvis Date/Time of Note DATE: 08/02/18 TIME: 12:33 Hx of Present Illness This is a 63-year-old male with past medical history of diabetes, BPH UTI causing sepsis, hypertension, dyslipidemia who was admitted admitted for sepsis secondary to pyelonephritis/UTI during authorization patient was treated with antibiotics and improved with improved leukocytosis patient does have a noted microcytic anemia. He was also here in March of this year where he had a CT abdomen and pelvis without contrast which revealed several perirectal lymph nodes subtle thickening of the clark of the rectum. Recommend colonoscopy to exclude possibility of rectal malignancy. Patient never followed up with GI and therefore never had a colonoscopy. GIs been consulted to move forward with colonoscopy to rule out rectal malignancy Review of Systems: A 12 system, review was conducted and is negative except as noted in the HPI or here. Past Medical History Home Meds Reported Medications Mirtazapine* (Remeron*) Unknown Strength Tablet, 1 TAB PO HS, TAB 07/29/18 Tamsulosin Hcl* (Flomax*) 0.4 Mg Cap.er.24h, 0.4 MG PO HS, CAP 07/29/18 Atorvastatin* (Atorvastatin*) 80 Mg Tablet, 80 MG PO QHS, #30 TAB 07/29/18 Gabapentin* (Gabapentin*) 300 Mg Capsule, 300 MG PO DAILY, #60 CAP 07/29/18 Finasteride* (Finasteride*) 5 Mg Tablet, 5 MG PO DAILY, TAB 07/29/18 Aspirin* (Aspirin* EC) 81 Mg Tablet.dr, 81 MG PO DAILY, TAB 07/29/18 Lisinopril/Hydrochlorothiazide (Lisinopril-Hctz 20-12.5 mg Tab) 1 Each Tablet, 1 EACH PO BID, TAB 07/29/18 Discontinued Reported Medications Nitroglycerin* (Nitroglycerin* SL) 0.4 Mg Tab.subl, 0.4 MG SL Q5MIN PRN for CHEST PAIN, BOTTLE 01/03/14 Discontinued Scripts Nitrofurantoin Monohyd Macrocr* (Macrobid*) 100 Mg Capsr, 100 MG PO BID for 14 Days, CAP Prov:IVAN MILIAN DO 07/24/18 Tamsulosin Hcl* (Tamsulosin Hcl*) 0.4 Mg Cap.er.24h, 0.4 MG PO HS, #60 CAP Prov:CORWIN EMANUEL 03/27/18 Finasteride* (Proscar*) 5 Mg Tablet, 5 MG PO DAILY, #60 TAB Prov:CORWIN EMANUEL 03/27/18 Amlodipine Besylate* (Amlodipine Besylate*) 2.5 Mg Tablet, 2.5 MG PO DAILY, #30 TAB Prov:CARLINE YOUNG NP 01/21/18 Insulin Aspart* (Novolog Insulin Pen*) 100 Unit/Ml Soln, 5 UNIT SC WITH MEALS for 30 Days, #30 DOSE Prov:CARLINE YOUNG NP 01/21/18 [place]-3/Dha/Epa/Fish Oil (FISH OIL EC 1,000 MG SOFTGEL) 1 Each Capsule.dr, 1000 MG PO BID, #30 CAP Prov:LANDON WAGGONER NP 06/07/17 Insulin Glargine* (Lantus*) 100 Unit/Ml Soln, 45 UNIT SC DAILY@08 for 30 Days Prov:LANDON WAGGONER INSTRUMENT ROOM TECHNICIAN 06/07/17 Atorvastatin (Atorvastatin) 10 Mg Tablet, 20 MG PO HS, #30 TAB Prov:LANDON WAGGONER NP 06/07/17 Hydralazine Hcl* (Hydralazine Hcl*) 25 Mg Tab, 25 MG PO TID for 30 Days, #30 TAB 2 Refills Prov:LANDON WAGGONER NP 06/07/17 Gabapentin* (Neurontin*) 300 Mg Capsule, 300 MG PO DAILY, #30 CAP Prov:LANDON WAGGONER NP 06/07/17 Loratadine* (Claritin*) 10 Mg Capsule, 10 MG PO DAILY for 10 Days, CAP Prov:SHITAL LEACH 12/08/16 Medications Current Medications Aspirin (Halfprin) 81 mg DAILY PO Last administered on 08/02/18 09:29; Admin Dose 81 MG; Start 07/30/18 at 09:00 Atorvastatin Calcium (Lipitor) 80 mg QHS PO Last administered on 08/01/18 20:59; Admin Dose 80 MG; Start 07/29/18 at 21:00 Finasteride (Proscar) 5 mg DAILY PO Last administered on 07/30/18 08:48; Admin Dose 5 MG; Start 07/30/18 at 09:00 Tamsulosin HCl (Flomax) 0.4 mg HS PO Last administered on 07/30/18 21:55; Admin Dose 0.4 MG; Start 07/29/18 at 21:00 IV Flush (NS 3 ml) 3 ml PER PROTOCOL IV ; Start 07/29/18 at 15:30 Ondansetron HCl (Zofran Inj) 4 mg Q6H PRN IV NAUSEA/VOMITING Last administered on 08/02/18 09:31; Admin Dose 4 MG; Start 07/29/18 at 15:30 Acetaminophen (Tylenol Tab) 650 mg Q6H PRN PO .PAIN 1-3 OR TEMP Last administered on 08/01/18 23:32; Admin Dose 650 MG; Start 07/29/18 at 15:30 Diagnostic Test (Pha) (Accu-Chek) 1 ea 02 XX ; Start 07/30/18 at 02:00 Insulin Glargine (Lantus) 10 units DAILY@2000 SC Last administered on 08/01/18 21:03; Admin Dose 10 UNITS; Start 07/29/18 at 20:00 Insulin Aspart (Novolog Insulin Pen) 3 unit WITH MEALS SC Last administered on 08/02/18 08:33; Admin Dose 3 UNIT; Start 07/29/18 at 18:00 Insulin Aspart (Novolog Insulin Pen) NOVOLOG *MILD* ALGORITHM WITH MEALS BEDTIME SC Last administered on 08/01/18 21:02; Admin Dose 2 UNIT; Start 07/29/18 at 18:00 Miscellaneous Information 1 ea NOTE XX ; Start 07/29/18 at 16:00 Glucose (Glutose) 15 gm Q15M PRN PO DECREASED GLUCOSE; Start 07/29/18 at 16:00 Glucose (Glutose) 22.5 gm Q15M PRN PO DECREASED GLUCOSE; Start 07/29/18 at 16:00 Dextrose (D50w Syringe) 25 ml Q15M PRN IV DECREASED GLUCOSE; Start 07/29/18 at 16:00 Dextrose (D50w Syringe) 50 ml Q15M PRN IV DECREASED GLUCOSE; Start 07/29/18 at 16:00 Glucagon (Glucagen) 1 mg Q15M PRN IM DECREASED GLUCOSE; Start 07/29/18 at 16:00 Glucose (Glutose) 15 gm Q15M PRN BUCCAL DECREASED GLUCOSE; Start 07/29/18 at 16:00 Sodium Chloride 1,000 ml @ 60 mls/hr [id number] IV Last administered on 08/01/18at 21:44; Admin Dose 60 MLS/HR; Start 07/30/18 at 14:30 Metoclopramide HCl (Reglan) 5 mg Q6H PRN IV nausea Last administered on 07/30/18at 17:44; Admin Dose 5 MG; Start 07/30/18 at 14:30 Gabapentin (Neurontin) 300 mg TID PO Last administered on 08/02/18at 09:31; Admin Dose 300 MG; Start 07/30/18 at 23:00 Ertapenem 1 gm/ Sodium Chloride 100 ml @ 200 mls/hr Q24H IVPB Last administered on 08/01/18at 13:13; Admin Dose 200 MLS/HR; Start 07/31/18 at 13:00; Stop 08/07/18 at 12:59 Phenazopyridine HCl (Pyridium) 200 mg TID PO ; Start 08/02/18 at 13:00 Amlodipine Besylate (Norvasc) 10 mg DAILY PO ; Start 08/03/18 at 09:00 Hydromorphone HCl (Dilaudid) 0.5 mg Q6H PRN IV SEVERE PAIN LEVEL 7-10; Start 08/02/18 at 12:30 Allergies: Coded Allergies: metformin (Unverified Allergy, Intermediate, Diarrhea, 07/29/18) acetaminophen (Verified Allergy, Unknown, 07/29/18) codeine (Unverified Allergy, Unknown, 07/29/18) hydrocodone (Verified Allergy, Unknown, 07/29/18) tramadol (Verified Allergy, Unknown, 07/29/18) Uncoded Allergies: ANTIBIOTICS (Allergy, Severe, 06/04/17) unknown antibiotic ANTIBIOTICS UNKNOWN (Allergy, Unknown, 03/24/18) PATIENT SAYS HIS ALLERGIC TO SOME OF THE ANTIBIOTICS Past Surgical History Past Surgical Hx: other Social History Smoking Status: Never smoker Exam/Review of Systems Exam Vitals Vital Signs Date Temp Pulse Resp B/P (MAP) Pulse Ox O2 O2 Flow FiO2 Time Delivery Rate 08/02/18 98.6 87 16 154/70 99 08:16 (98) 07/30/18 Room Air 14:22 Intake and Output 08/01/18 08/01/18 08/02/18 1515:00 23:00 07:00 IntakeIntake Total 1060 ml 1640 ml 400 ml BalanceBalance 1060 ml 1640 ml 400 ml Exam PHYSICAL EXAMINATION: GENERAL: Alert & oriented x 3, in no acute distress SKIN: No lesions LYMPHATIC: No palpable lymphadenopathy. HEAD: Normocephalic, atraumatic, no tenderness. EYES: Pupils equal reactive to light and accommodation, no discharge. EARS/NOSE AND THROAT: Ears normal, nose normal. NECK: Supple, no masses. CHEST: Inspection within normal limits. CARDIOVASCULAR: Heart: Regular rate and rhythm RESPIRATORY: Lungs clear to auscultation GASTROINTESTINAL AND LIVER: Abdomen: Soft, non tenderness, non-distended, no hernias, no masses, no organomegaly, no ascites, no guarding, no rebound tenderness, normoactive bowel sounds. Rectal: Deferred. EXTREMITIES: No cyanosis, clubbing or edema. Results Result Diagram: 08/02/18 0445 08/02/18 0446 Results 24hrs Laboratory Tests Test 08/01/18 13:20 08/01/18 17:44 08/01/18 20:58 08/02/18 01:59 Bedside Glucose 219 127 250 H 143 Test 08/02/18 04:45 08/02/18 04:46 08/02/18 08:28 White Blood Count 11.8 H Red Blood Count 3.23 L Hemoglobin 8.1 L Hematocrit 25.6 L Mean Corpuscular 79.3 L Volume Mean Corpuscular 25.1 L Hemoglobin Mean Corpuscular 31.6 L Hemoglobin Concent Red Cell 13.9 Distribution Width Platelet Count 405 Mean Platelet Volume 8.6 Immature 0.800 H Granulocytes % Neutrophils % 66.1 Lymphocytes % 23.7 Monocytes % 6.6 Eosinophils % 2.5 Basophils % 0.3 Nucleated Red Blood 0.0 Cells % Immature 0.090 H Granulocytes # Neutrophils # 7.8 H Lymphocytes # 2.8 Monocytes # 0.8 Eosinophils # 0.3 Basophils # 0.0 Nucleated Red Blood 0.0 Cells # Sodium Level 133 L Potassium Level 4.7 Chloride Level 102 Carbon Dioxide Level 27 Anion Gap 4 L Blood Urea Nitrogen 26 H Creatinine 1.43 H Est Glomerular 50 L Filtrat Rate mL/min Glucose Level 117 # Calcium Level 8.7 Bedside Glucose 118 Medications Medication Current Medications Aspirin (Halfprin) 81 mg DAILY PO Last administered on 08/02/18 09:29; Admin Dose 81 MG; Start 07/30/18 at 09:00 Atorvastatin Calcium (Lipitor) 80 mg QHS PO Last administered on 08/01/18 20:59; Admin Dose 80 MG; Start 07/29/18 at 21:00 Finasteride (Proscar) 5 mg DAILY PO Last administered on 07/30/18 08:48; Admin Dose 5 MG; Start 07/30/18 at 09:00 Tamsulosin HCl (Flomax) 0.4 mg HS PO Last administered on 07/30/18 21:55; Admin Dose 0.4 MG; Start 07/29/18 at 21:00 IV Flush (NS 3 ml) 3 ml PER PROTOCOL IV ; Start 07/29/18 at 15:30 Ondansetron HCl (Zofran Inj) 4 mg Q6H PRN IV NAUSEA/VOMITING Last administered on 08/02/18 09:31; Admin Dose 4 MG; Start 07/29/18 at 15:30 Acetaminophen (Tylenol Tab) 650 mg Q6H PRN PO .PAIN 1-3 OR TEMP Last administered on 08/01/18 23:32; Admin Dose 650 MG; Start 07/29/18 at 15:30 Diagnostic Test (Pha) (Accu-Chek) 1 ea 02 XX ; Start 07/30/18 at 02:00 Insulin Glargine (Lantus) 10 units DAILY@2000 SC Last administered on 08/01/18 21:03; Admin Dose 10 UNITS; Start 07/29/18 at 20:00 Insulin Aspart (Novolog Insulin Pen) 3 unit WITH MEALS SC Last administered on 08/02/18at 08:33; Admin Dose 3 UNIT; Start 07/29/18 at 18:00 Insulin Aspart (Novolog Insulin Pen) NOVOLOG *MILD* ALGORITHM WITH MEALS BEDTIME SC Last administered on 08/01/18at 21:02; Admin Dose 2 UNIT; Start 07/29/18 at 18:00 Miscellaneous Information 1 ea NOTE XX ; Start 07/29/18 at 16:00 Glucose (Glutose) 15 gm Q15M PRN PO DECREASED GLUCOSE; Start 07/29/18 at 16:00 Glucose (Glutose) 22.5 gm Q15M PRN PO DECREASED GLUCOSE; Start 07/29/18 at 16:00 Dextrose (D50w Syringe) 25 ml Q15M PRN IV DECREASED GLUCOSE; Start 07/29/18 at 16:00 Dextrose (D50w Syringe) 50 ml Q15M PRN IV DECREASED GLUCOSE; Start 07/29/18 at 16:00 Glucagon (Glucagen) 1 mg Q15M PRN IM DECREASED GLUCOSE; Start 07/29/18 at 16:00 Glucose (Glutose) 15 gm Q15M PRN BUCCAL DECREASED GLUCOSE; Start 07/29/18 at 16:00 Sodium Chloride 1,000 ml @ 60 mls/hr [id number] IV Last administered on 08/01/18at 21:44; Admin Dose 60 MLS/HR; Start 07/30/18 at 14:30 Metoclopramide HCl (Reglan) 5 mg Q6H PRN IV nausea Last administered on 07/30/18at 17:44; Admin Dose 5 MG; Start 07/30/18 at 14:30 Gabapentin (Neurontin) 300 mg TID PO Last administered on 08/02/18at 09:31; Admin Dose 300 MG; Start 07/30/18 at 23:00 Ertapenem 1 gm/ Sodium Chloride 100 ml @ 200 mls/hr Q24H IVPB Last administe red on 08/01/18at 13:13; Admin Dose 200 MLS/HR; Start 07/31/18 at 13:00; Stop 08/07/18 at 12:59 Phenazopyridine HCl (Pyridium) 200 mg TID PO ; Start 08/02/18 at 13:00 Amlodipine Besylate (Norvasc) 10 mg DAILY PO ; Start 08/03/18 at 09:00 Hydromorphone HCl (Dilaudid) 0.5 mg Q6H PRN IV SEVERE PAIN LEVEL 7-10; Start 08/02/18 at 12:30 ANNA WASHINGTON August 02, 2018 12:41
[2018-08-02] MEDS: PHENAZOPYRIDINE 200 MG TAB PO SCH ×2 (13:18→20:32)
[2018-08-02] MEDS: ERTAPENEM SODIUM 1 GM in SOD CHLORIDE 0.9% 100 ML IVPB SCH (13:20)
[2018-08-02 15:18] VITALS: BP 154/69; PULSE 80; RESP 16
--- NOTE | 2018-08-02 15:34 | CONS ---
Assessment/Plan Assessment/Plan Hospital Course (Demo Recall) ID PRELMINARY CONSULT NOTE CURRENT ABX: DAY #5=>Ertapenem 24H INTERVAL SUMMARY * CLINICALLY STATUS QUO -- No new issues, WBC w/slow downtrend * Resting with eyes closed, VSS, NAD, afebrile * Renal US with subacute right subcapsular hematoma w/mild hydronephrosis -- uncertain significance IMAGING * 07/31/18 RENAL US: IMPRESSION: Subacute right subcapsular hematoma. Mild left hydronephrosis. A ureteral jet was documented. * 07/29/18 CXR: IMPRESSION: 1. No radiographic evidence of an acute cardiopulmonary process. 2. Aortic atherosclerosis. MICRO/OTHER * 07/29/18 BCX (-) * 07/29/18 URINE CX: URINE CULTURE Final Organism 1 ESCHERICHIA COLI (ESBL) COLONY COUNT >100,000 CFU/ml . MULTI DRUG RESISTANT ORGANISM ECOLI ESBL ECOLI ESBL M.I.C. RX M.I.C. RX --------- --- --------- --- AMPICILLIN >=32 R CEFAZOLIN R CEFEPIME <=1 S CEFOTAXIME R CIPROFLOXACIN >=4 R GENTAMICIN <=1 S LEVOFLOXACIN >=8 R MEROPENEM 0.012 S NITROFURANTOIN <=16 S TOBRAMYCIN <=1 S TRIMETHOPRIM/SULFAMETHOXAZOLE >=320 R PIPERACILLIN/TAZOBACTAM <=4 S PHYSICAL EXAMINATION: GENERAL: VSS, NAD, lethargic, low grade temps HEENT: AT, NC, pale NECK: WNL CHEST: Equal chest rise bilaterally without dyspnea on observation ABD: Soft, ND EXTREMITIES: Warm, dry SKIN: No rash, no diaphoresis ID ASSESSMENT 74 yo M admit with: Sepsis * Source: Pyelonephritis/UTI Pyelonephritis, Recurrent Renal US with subacute right subcapsular hematoma w/mild hydronephrosis -- uncertain significance BPH w/lower urinary tract symptoms -- on meds Acute kidney injury, likely secondary to hemodynamics versus ACEi/HCTZ Hypertension DMII Dyslipidemia Hyponatremia, likely thiazide effect Chronic anemia GERD Hx of back surgery x2 w/chronic pain syndrome (?)MRSA Nares ABX ALLERGIES: None to ABX INVASIVES: PIV CURRENT ABX: DAY # 5=>Ertapenem ID RECOMMENDATIONS/PLAN: 1. Ertapenem 1gm IVPB x total 10 days 2. Renal US with subacute right subcapsular hematoma w/mild hydronephrosis -- uncertain significance ? 3. May DC on above ABX when afebrile x 48H with downtrend in WBC count per primary care clearance . Consultation Date/Type/Reason Admit Date/Time July 30, 2018 at 08:40 Initial Consult Date Date/Time of Note DATE: 08/02/18 TIME: 15:32 Exam/Review of Systems Exam Vitals Vital Signs Date Temp Pulse Resp B/P (MAP) Pulse Ox O2 O2 Flow FiO2 Time Delivery Rate 08/02/18 98.9 80 16 154/69 97 15:18 (97) 07/30/18 Room Air 14:22 Intake and Output 08/01/18 08/01/18 08/02/18 1515:00 23:00 07:00 IntakeIntake Total 1060 ml 1640 ml 400 ml BalanceBalance 1060 ml 1640 ml 400 ml Results Result Diagram: 08/02/18 0445 08/02/18 0446 Results 24hrs Laboratory Tests Test 08/01/18 17:44 08/01/18 20:58 08/02/18 01:59 08/02/18 04:42 Bedside Glucose 127 250 H 143 Carcinoembryonic 0.4 Antigen Prostate Specific 1.0 Antigen Test 08/02/18 04:45 08/02/18 04:46 08/02/18 08:28 08/02/18 13:02 White Blood Count 11.8 H Red Blood Count 3.23 L Hemoglobin 8.1 L Hematocrit 25.6 L Mean Corpuscular 79.3 L Volume Mean Corpuscular 25.1 L Hemoglobin Mean Corpuscular 31.6 L Hemoglobin Concent Red Cell 13.9 Distribution Width Platelet Count 405 Mean Platelet Volume 8.6 Immature 0.800 H Granulocytes % Neutrophils % 66.1 Lymphocytes % 23.7 Monocytes % 6.6 Eosinophils % 2.5 Basophils % 0.3 Nucleated Red Blood 0.0 Cells % Immature 0.090 H Granulocytes # Neutrophils # 7.8 H Lymphocytes # 2.8 Monocytes # 0.8 Eosinophils # 0.3 Basophils # 0.0 Nucleated Red Blood 0.0 Cells # Sodium Level 133 L Potassium Level 4.7 Chloride Level 102 Carbon Dioxide Level 27 Anion Gap 4 L Blood Urea Nitrogen 26 H Creatinine 1.43 H Est Glomerular 50 L Filtrat Rate mL/min Glucose Level 117 # Calcium Level 8.7 Bedside Glucose 118 114 Medications Medication Current Medications Aspirin (Halfprin) 81 mg DAILY PO Last administered on 08/02/18 09:29; Admin Dose 81 MG; Start 07/30/18 at 09:00 Atorvastatin Calcium (Lipitor) 80 mg QHS PO Last administered on 08/01/18 20:59; Admin Dose 80 MG; Start 07/29/18 at 21:00 Finasteride (Proscar) 5 mg DAILY PO Last administered on 07/30/18 08:48; Admin Dose 5 MG; Start 07/30/18 at 09:00 Tamsulosin HCl (Flomax) 0.4 mg HS PO Last administered on 07/30/18 21:55; Admin Dose 0.4 MG; Start 07/29/18 at 21:00 IV Flush (NS 3 ml) 3 ml PER PROTOCOL IV ; Start 07/29/18 at 15:30 Ondansetron HCl (Zofran Inj) 4 mg Q6H PRN IV NAUSEA/VOMITING Last administered on 08/02/18 09:31; Admin Dose 4 MG; Start 07/29/18 at 15:30 Acetaminophen (Tylenol Tab) 650 mg Q6H PRN PO .PAIN 1-3 OR TEMP Last administered on 08/01/18 23:32; Admin Dose 650 MG; Start 07/29/18 at 15:30 Diagnostic Test (Pha) (Accu-Chek) 1 ea 02 XX ; Start 07/30/18 at 02:00 Insulin Glargine (Lantus) 10 units DAILY@2000 SC Last administered on 08/01/18 21:03; Admin Dose 10 UNITS; Start 07/29/18 at 20:00 Insulin Aspart (Novolog Insulin Pen) 3 unit WITH MEALS SC Last administered on 08/02/18 13:11; Admin Dose 3 UNIT; Start 07/29/18 at 18:00 Insulin Aspart (Novolog Insulin Pen) NOVOLOG *MILD* ALGORITHM WITH MEALS BEDTIME SC Last administered on 08/01/18at 21:02; Admin Dose 2 UNIT; Start 07/29/18 at 18:00 Miscellaneous Information 1 ea NOTE XX ; Start 07/29/18 at 16:00 Glucose (Glutose) 15 gm Q15M PRN PO DECREASED GLUCOSE; Start 07/29/18 at 16:00 Glucose (Glutose) 22.5 gm Q15M PRN PO DECREASED GLUCOSE; Start 07/29/18 at 16:00 Dextrose (D50w Syringe) 25 ml Q15M PRN IV DECREASED GLUCOSE; Start 07/29/18 at 16:00 Dextrose (D50w Syringe) 50 ml Q15M PRN IV DECREASED GLUCOSE; Start 07/29/18 at 16:00 Glucagon (Glucagen) 1 mg Q15M PRN IM DECREASED GLUCOSE; Start 07/29/18 at 16:00 Glucose (Glutose) 15 gm Q15M PRN BUCCAL DECREASED GLUCOSE; Start 07/29/18 at 16:00 Metoclopramide HCl (Reglan) 5 mg Q6H PRN IV nausea Last administered on 07/30/18at 17:44; Admin Dose 5 MG; Start 07/30/18 at 14:30 Gabapentin (Neurontin) 300 mg TID PO Last administered on 08/02/18at 13:19; A dmin Dose 300 MG; Start 07/30/18 at 23:00 Ertapenem 1 gm/ Sodium Chloride 100 ml @ 200 mls/hr Q24H IVPB Last administered on 08/02/18at 13:20; Admin Dose 200 MLS/HR; Start 07/31/18 at 13:00; Stop 08/07/18 at 12:59 Phenazopyridine HCl (Pyridium) 200 mg TID PO Last administered on 08/02/18at 13:18; Admin Dose 200 MG; Start 08/02/18 at 13:00 Amlodipine Besylate (Norvasc) 10 mg DAILY PO ; Start 08/03/18 at 09:00 Hydromorphone HCl (Dilaudid) 0.5 mg Q6H PRN IV SEVERE PAIN LEVEL 7-10; Start 08/02/18 at 12:30 Bisacodyl (Dulcolax) 10 mg ONCE ONCE PO ; Start 08/02/18 at 16:00; Stop 08/02/18 at 16:01 Polyethylene Glycol/ Electrolytes (Golytely) 2,000 ml ONCE ONCE PO ; Start 08/02/18 at 17:00; Stop 08/02/18 at 17:01 Polyethylene Glycol/ Electrolytes (Golytely) 2,000 ml 2nd Dose (GI Prep) ONCE PO ; Start 08/03/18 at 08:00; Stop 08/03/18 at 08:01 Bisacodyl (Dulcolax) 10 mg 2nd Dose (GI Prep) ONCE PO ; Start 08/03/18 at 08:00; Stop 08/03/18 at 08:01 HARDIK CURTIS NP August 02, 2018 15:34
[2018-08-02] MEDS ORDERED: BISACODYL (EC) 5 MG TAB PO ONE (16:00)
[2018-08-02] MEDS ORDERED: PEG/ELECTROLYTES 4L BTL PO ONE (17:00)
[2018-08-02] MEDS: HYDROmorphONE 0.5 MG/0.5 ML SYG IV PRN (18:29)
[2018-08-02 19:42] VITALS: BP 146/67; PULSE 81; RESP 16
[2018-08-02] MEDS: INSULIN GLARGINE [LANTus] (100 UNITS/ML) SYG SC SCH (20:00)
[2018-08-02] MEDS: TAMSULOSIN (SR) 0.4 MG CAP PO SCH (20:32)
[2018-08-02] MEDS: ATORVASTATIN 80 MG TAB PO SCH (20:32)
[2018-08-03] VITALS (14 sets, daily range): BP systolic 121–172; BP diastolic 60–75; PULSE 76–99; RESP 16–22
[2018-08-03] MEDS: HYDROmorphONE 0.5 MG/0.5 ML SYG IV PRN ×4 (00:42→21:18)
[2018-08-03] MEDS: ACCU-CHEK XX SCH (02:00)
[2018-08-03] MEDS ORDERED: PEG/ELECTROLYTES 4L BTL PO ONE (08:00)
[2018-08-03] MEDS ORDERED: BISACODYL (EC) 5 MG TAB PO ONE (08:00)
[2018-08-03] MEDS: INSULIN ASPART [NOVOLOG] 3 ML PEN SC SCH ×7 (08:00→20:39)
[2018-08-03] MEDS: ACETAMINOPHEN 325 MG TAB PO PRN (08:20)
[2018-08-03] MEDS: PHENAZOPYRIDINE 200 MG TAB PO SCH ×3 (09:00→20:43)
[2018-08-03] MEDS: ASPIRIN (EC) 81 MG TAB PO SCH (09:00)
[2018-08-03] MEDS: FINASTERIDE 5 MG TAB PO SCH (09:00)
[2018-08-03] MEDS: AMLODIPINE 10 MG TAB PO SCH (09:31)
[2018-08-03] MEDS: GABAPENTIN 300 MG CAP PO SCH ×3 (09:31→20:39)
--- NOTE | 2018-08-03 09:54 | CONS ---
DATE OF ADMISSION: 07/30/2018 DATE OF CONSULTATION: TYPE OF CONSULTATION: Infectious disease consultation for Dr. Zion Metzger at the request of Dr. Heena Chatterjee. HISTORY OF PRESENT ILLNESS: The patient is a 63-year-old white male who was admitted on 07/29/2018 with a chief complaint of fever, chills, dysuria and bilateral flank pain x2 days. The patient has a long history of urinary tract infections including epididymitis and ketosis-prone diabetes. Upon arrival, his white blood cell count was 15,400. On admission, his temperature was 100.1, pulse 108, respirations 18, blood pressure 147/84 and pulse oximetry was 100% on room air. The patient was treated with cefepime and Levaquin. The urinalysis was yellow, turbid, pH 6, specific gravity 1.013, +3 leukocyte esterase, negative nitrite, greater than 182 white blood cells, 5 RBCs. BUN 34, creatinine 1.35, GFR estimated is 53. Serum sodium was 131, potassium 4.9. The patient's urine culture grew multiple drug resistant E. coli which was sensitive to Zosyn, nitrofurantoin, gentamicin, tobramycin, cefotaxime, Levaquin, meropenem. PAST MEDICAL HISTORY: Benign prostatic hypertrophy, history of pancreatitis, various episodes with abscess with at least 1 occasion Staphylococcus aureus isolated with a wild type antibiotic sensitivities, diabetes mellitus, hypertension. ALLERGIES: 1. TYLENOL. 2. . 3. METFORMIN. 4. TRAMADOL. MEDICATIONS: 1. Tamsulosin. 2. Finasteride. 3. Lisinopril/hydrochlorothiazide 25/12.5 mg b.i.d. PHYSICAL EXAMINATION: GENERAL: Reveals a well-nourished, well-developed white male who speaks with a [place] accent. VITAL SIGNS: His temperature is 98.9, pulse 90, respirations 18, blood pressure 144/64, O2 saturation 97% on room air. HEENT: The pupils are equal, round and react to light. Extraocular movements are full. The patient has short cropped hair. The mouth has moist mucous membranes. NECK: Supple. There is no jugular venous distention. CHEST: There is a 4 cm flat disk shaped lipoma in the left costovertebral area near the spine. There is percussion over the CVA area, was not particularly painful, but he has pain there when moving and trying to sit up for the examination. Chest is clear to auscultation except for some temporary crackles in the left base. HEART: Regular. There is no gallop or murmur. ABDOMEN: Slightly protuberant. Obese. No palpable organs or masses. There is an umbilical hernia running from 12:00 o'clock to 6 o'clock on the left side which is reducible. EXTREMITIES: Reveal no edema, cyanosis or clubbing. INITIAL IMPRESSION: 1. Systemic inflammatory response. 2. Bilateral pyelonephritis. 3. diabetes mellitus. 4. Benign prostatic hypertrophy. 5. Hypertension. 6. Hyperlipidemia. RECOMMENDATIONS: Obtain ultrasound of the kidneys and bladder treat the patient with ertapenem 1 gram IV daily. Obtain an A1c hemoglobin. Culture his nares for MRSA and I would recommend urologic evaluation as the patient states he self-catheterizes sometimes and also seems to have some obstruction problems, although he did not give a history of urethral stricture or gonorrhea, which may be contributing to his frequent urinary tract infections. We discussed good hydration and whether or not he had stones or not. He states he can see floating crystals on top of the urine that he passes and also susan colored crystals on the toilet when he passes urine. He says he is adopted, so there is no family history of gout and he states he has some Dictated By: Campos ISLAS/RYAN Conf#: [id number] DID#: [id number]
--- NOTE | 2018-08-03 13:33 | CONS ---
Assessment/Plan Assessment/Plan Hospital Course (Demo Recall) No acute events overnight patient is sleeping looks comfortable no fevers WBC 13.7 H&H 8.2 and 25.8 platelets 466 neutrophils 70.7 BUN 23 creatinine 1.29 Antimicrobials: Patient is on Invanz Microbiology: Urine culture on admission grew E. coli ESBL Physical examination: Well-developed elderly man who is in no distress. Head atraumatic normocephalic neck is supple chest rise symmetrical breath sounds diminished bases. Heart: S1-S2 abdomen soft bowel sounds present Assessment: 1. E. coli ESBL UTI 2. BPH 3. Diabetes 4. Anemia 5. Subacute right subcapsular hematoma with mild left hydronephrosis Plan: Patient remains stable, on appropriate antibiotic regimen, scheduled for colonoscopy today, pending CT abdomen, consider urology evaluation for abnormal renal ultrasound Consultation Date/Type/Reason Admit Date/Time July 30, 2018 at 08:40 Initial Consult Date 08/02/18 Type of Consult id Date/Time of Note DATE: 08/03/18 TIME: 13:32 Exam/Review of Systems Exam Vitals Vital Signs Date Temp Pulse Resp B/P (MAP) Pulse Ox O2 O2 Flow FiO2 Time Delivery Rate 08/03/18 98.6 09:57 08/03/18 96 20 129/60 94 07:48 (83) 07/30/18 Room Air 14:22 Intake and Output 08/02/18 08/02/18 08/03/18 1515:00 23:00 07:00 IntakeIntake Total 1280 ml 1270 ml 500 ml BalanceBalance 1280 ml 1270 ml 500 ml Results Result Diagram: 08/03/18 0441 08/03/18 0441 Results 24hrs Laboratory Tests Test 08/02/18 17:44 08/02/18 20:30 08/03/18 04:41 08/03/18 08:19 Bedside Glucose 93 97 91 White Blood Count 13.7 H Red Blood Count 3.31 L Hemoglobin 8.2 L Hematocrit 25.8 L Mean Corpuscular 77.9 L Volume Mean Corpuscular 24.8 L Hemoglobin Mean Corpuscular 31.8 L Hemoglobin Concent Red Cell 14.1 Distribution Width Platelet Count 466 H Mean Platelet Volume 8.9 Immature 0.500 H Granulocytes % Neutrophils % 70.7 Lymphocytes % 20.3 Monocytes % 6.4 Eosinophils % 1.8 Basophils % 0.3 Nucleated Red Blood 0.0 Cells % Immature 0.070 H Granulocytes # Neutrophils # 9.7 H Lymphocytes # 2.8 Monocytes # 0.9 Eosinophils # 0.3 Basophils # 0.0 Nucleated Red Blood 0.0 Cells # Sodium Level 129 L Potassium Level 4.2 Chloride Level 98 Carbon Dioxide Level 24 Anion Gap 7 Blood Urea Nitrogen 23 H Creatinine 1.29 H Est Glomerular 56 L Filtrat Rate mL/min Glucose Level 88 Calcium Level 8.5 Test 08/03/18 12:43 Bedside Glucose 81 Medications Medication Current Medications Aspirin (Halfprin) 81 mg DAILY PO Last administered on 08/02/18 09:29; Admin Dose 81 MG; Start 07/30/18 at 09:00 Atorvastatin Calcium (Lipitor) 80 mg QHS PO Last administered on 08/02/18 20:32; Admin Dose 80 MG; Start 07/29/18 at 21:00 Finasteride (Proscar) 5 mg DAILY PO Last administered on 07/30/18 08:48; Admin Dose 5 MG; Start 07/30/18 at 09:00 Tamsulosin HCl (Flomax) 0.4 mg HS PO Last administered on 07/30/18 21:55; Admin Dose 0.4 MG; Start 07/29/18 at 21:00 IV Flush (NS 3 ml) 3 ml PER PROTOCOL IV ; Start 07/29/18 at 15:30 Ondansetron HCl (Zofran Inj) 4 mg Q6H PRN IV NAUSEA/VOMITING Last administered on 08/02/18 18:28; Admin Dose 4 MG; Start 07/29/18 at 15:30 Acetaminophen (Tylenol Tab) 650 mg Q6H PRN PO .PAIN 1-3 OR TEMP Last administered on 08/03/18 08:20; Admin Dose 650 MG; Start 07/29/18 at 15:30 Diagnostic Test (Pha) (Accu-Chek) 1 ea 02 XX ; Start 07/30/18 at 02:00 Insulin Glargine (Lantus) 10 units DAILY@2000 SC Last administered on 08/01/18 21:03; Admin Dose 10 UNITS; Start 07/29/18 at 20:00 Insulin Aspart (Novolog Insulin Pen) 3 unit WITH MEALS SC Last administered on 08/02/18 13:11; Admin Dose 3 UNIT; Start 07/29/18 at 18:00 Insulin Aspart (Novolog Insulin Pen) NOVOLOG *MILD* ALGORITHM WITH MEALS BEDTIME SC Last administered on 08/01/18at 21:02; Admin Dose 2 UNIT; Start 07/29/18 at 18:00 Miscellaneous Information 1 ea NOTE XX ; Start 07/29/18 at 16:00 Glucose (Glutose) 15 gm Q15M PRN PO DECREASED GLUCOSE; Start 07/29/18 at 16:00 Glucose (Glutose) 22.5 gm Q15M PRN PO DECREASED GLUCOSE; Start 07/29/18 at 16:00 Dextrose (D50w Syringe) 25 ml Q15M PRN IV DECREASED GLUCOSE; Start 07/29/18 at 16:00 Dextrose (D50w Syringe) 50 ml Q15M PRN IV DECREASED GLUCOSE; Start 07/29/18 at 16:00 Glucagon (Glucagen) 1 mg Q15M PRN IM DECREASED GLUCOSE; Start 07/29/18 at 16:00 Glucose (Glutose) 15 gm Q15M PRN BUCCAL DECREASED GLUCOSE; Start 07/29/18 at 16:00 Metoclopramide HCl (Reglan) 5 mg Q6H PRN IV nausea Last administered on 07/30/18at 17:44; Admin Dose 5 MG; Start 07/30/18 at 14:30 Gabapentin (Neurontin) 300 mg TID PO Last administered on 08/03/18at 12:44; Admin Dose 300 MG; Start 07/30/18 at 23:00 Ertapenem 1 gm/ Sodium Chloride 100 ml @ 200 mls/hr Q24H IVPB Last administered on 08/02/18at 13:20; Admin Dose 200 MLS/HR; Start 07/31/18 at 13:00; Stop 08/07/18 at 12:59 Phenazopyridine HCl (Pyridium) 200 mg TID PO Last administered on 08/02/18at 20:32; Admin Dose 200 MG; Start 08/02/18 at 13:00 Amlodipine Besylate (Norvasc) 10 mg DAILY PO Last administered on 08/03/18at 09:31; Admin Dose 10 MG; Start 08/03/18 at 09:00 Hydromorphone HCl (Dilaudid) 0.5 mg Q6H PRN IV SEVERE PAIN LEVEL 7-10 Last administered on 08/03/18at 12:51; Admin Dose 0.5 MG; Start 08/02/18 at 12:30 BELL WEEMS NP August 03, 2018 13:33
[2018-08-03] MEDS: ERTAPENEM SODIUM 1 GM in SOD CHLORIDE 0.9% 100 ML IVPB SCH (14:24)
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
--- NOTE | 2018-08-03 17:48 | PREAC ---
Date/Time of Note Date/Time of Note DATE: 08/03/18 TIME: 17:47 Anesthesia Eval and Record Evaluation Time Pre-Procedure Interview DATE: 08/03/18 TIME: 17:47 Age 63 Sex male NPO: 8 hrs Preoperative diagnosis Weight loss Planned procedure Colonoscopy Past Medical History Past Medical History: Includes Cardio: HTN, Dyslipidemia Endo: Diabetes Heme: Anemia Psych: Anxiety Surgery & Anesthesia Issues No known issue Meds Anticoagulation: No Beta Naina within 24 hr: No Reason Beta Naina not given: Pt. not on B-Naina Reported Medications Mirtazapine* (Remeron*) Unknown Strength Tablet, 1 TAB PO HS, TAB 07/29/18 Tamsulosin Hcl* (Flomax*) 0.4 Mg Cap.er.24h, 0.4 MG PO HS, CAP 07/29/18 Atorvastatin* (Atorvastatin*) 80 Mg Tablet, 80 MG PO QHS, #30 TAB 07/29/18 Gabapentin* (Gabapentin*) 300 Mg Capsule, 300 MG PO DAILY, #60 CAP 07/29/18 Finasteride* (Finasteride*) 5 Mg Tablet, 5 MG PO DAILY, TAB 07/29/18 Aspirin* (Aspirin* EC) 81 Mg Tablet.dr, 81 MG PO DAILY, TAB 07/29/18 Lisinopril/Hydrochlorothiazide (Lisinopril-Hctz 20-12.5 mg Tab) 1 Each Tablet, 1 EACH PO BID, TAB 07/29/18 Discontinued Reported Medications Nitroglycerin* (Nitroglycerin* SL) 0.4 Mg Tab.subl, 0.4 MG SL Q5MIN PRN for CHEST PAIN, BOTTLE 01/03/14 Discontinued Scripts Nitrofurantoin Monohyd Macrocr* (Macrobid*) 100 Mg Capsr, 100 MG PO BID for 14 Days, CAP Prov:IVAN MILIAN DO 07/24/18 Tamsulosin Hcl* (Tamsulosin Hcl*) 0.4 Mg Cap.er.24h, 0.4 MG PO HS, #60 CAP Prov:CORWIN EMANUEL 03/27/18 Finasteride* (Proscar*) 5 Mg Tablet, 5 MG PO DAILY, #60 TAB Prov:CORWIN EMANUEL 03/27/18 Amlodipine Besylate* (Amlodipine Besylate*) 2.5 Mg Tablet, 2.5 MG PO DAILY, #30 TAB Prov:ROX YOUNGA V. WIRE STRAIGHTENING MACHINE OPERATOR 01/21/18 Insulin Aspart* (Novolog Insulin Pen*) 100 Unit/Ml Soln, 5 UNIT SC WITH MEALS for 30 Days, #30 DOSE Prov:CARLINE YOUNG VBobo WIRE STRAIGHTENING MACHINE OPERATOR 01/21/18 [place]-3/Dha/Epa/Fish Oil (FISH OIL EC 1,000 MG SOFTGEL) 1 Each Capsule.dr, 1000 MG PO BID, #30 CAP Prov:REGLANDON PERERA NP 06/07/17 Insulin Glargine* (Lantus*) 100 Unit/Ml Soln, 45 UNIT SC DAILY@08 for 30 Days Prov:LANDON WAGGONER NP 06/07/17 Atorvastatin (Atorvastatin) 10 Mg Tablet, 20 MG PO HS, #30 TAB Prov:LANDON WAGGONER NP 06/07/17 Hydralazine Hcl* (Hydralazine Hcl*) 25 Mg Tab, 25 MG PO TID for 30 Days, #30 TAB 2 Refills Prov:LANDON WAGGONER NP 06/07/17 Gabapentin* (Neurontin*) 300 Mg Capsule, 300 MG PO DAILY, #30 CAP Prov:LANDON WAGGONER NP 06/07/17 Loratadine* (Claritin*) 10 Mg Capsule, 10 MG PO DAILY for 10 Days, CAP Prov:SHITAL LEACH 12/08/16 Current Medications Aspirin (Halfprin) 81 mg DAILY PO Last administered on 08/02/18at 09:29; Admin Dose 81 MG; Start 07/30/18 at 09:00 Atorvastatin Calcium (Lipitor) 80 mg QHS PO Last administered on 08/02/18at 20:32; Admin Dose 80 MG; Start 07/29/18 at 21:00 Finasteride (Proscar) 5 mg DAILY PO Last administered on 07/30/18at 08:48; Admin Dose 5 MG; Start 07/30/18 at 09:00 Tamsulosin HCl (Flomax) 0.4 mg HS PO Last administered on 07/30/18at 21:55; Admin Dose 0.4 MG; Start 07/29/18 at 21:00 IV Flush (NS 3 ml) 3 ml PER PROTOCOL IV ; Start 07/29/18 at 15:30 Ondansetron HCl (Zofran Inj) 4 mg Q6H PRN IV NAUSEA/VOMITING Last administered on 08/02/18 18:28; Admin Dose 4 MG; Start 07/29/18 at 15:30 Acetaminophen (Tylenol Tab) 650 mg Q6H PRN PO .PAIN 1-3 OR TEMP Last administ ered on 08/03/18 08:20; Admin Dose 650 MG; Start 07/29/18 at 15:30 Diagnostic Test (Pha) (Accu-Chek) 1 ea 02 XX ; Start 07/30/18 at 02:00 Insulin Glargine (Lantus) 10 units DAILY@2000 SC Last administered on 08/01/18 21:03; Admin Dose 10 UNITS; Start 07/29/18 at 20:00 Insulin Aspart (Novolog Insulin Pen) 3 unit WITH MEALS SC Last administered on 08/02/18 13:11; Admin Dose 3 UNIT; Start 07/29/18 at 18:00 Insulin Aspart (Novolog Insulin Pen) NOVOLOG *MILD* ALGORITHM WITH MEALS BEDTIME SC Last administered on 08/01/18 21:02; Admin Dose 2 UNIT; Start 07/29/18 at 18:00 Miscellaneous Information 1 ea NOTE XX ; Start 07/29/18 at 16:00 Glucose (Glutose) 15 gm Q15M PRN PO DECREASED GLUCOSE; Start 07/29/18 at 16:00 Glucose (Glutose) 22.5 gm Q15M PRN PO DECREASED GLUCOSE; Start 07/29/18 at 16:00 Dextrose (D50w Syringe) 25 ml Q15M PRN IV DECREASED GLUCOSE; Start 07/29/18 at 16:00 Dextrose (D50w Syringe) 50 ml Q15M PRN IV DECREASED GLUCOSE; Start 07/29/18 at 16:00 Glucagon (Glucagen) 1 mg Q15M PRN IM DECREASED GLUCOSE; Start 07/29/18 at 16:00 Glucose (Glutose) 15 gm Q15M PRN BUCCAL DECREASED GLUCOSE; Start 07/29/18 at 16:00 Metoclopramide HCl (Reglan) 5 mg Q6H PRN IV nausea Last administered on 07/30/18 17:44; Admin Dose 5 MG; Start 07/30/18 at 14:30 Gabapentin (Neurontin) 300 mg TID PO Last administered on 08/03/18 12:44; Admin Dose 300 MG; Start 07/30/18 at 23:00 Ertapenem 1 gm/ Sodium Chloride 100 ml @ 200 mls/hr Q24H IVPB Last administered on 08/03/18at 14:24; Admin Dose 200 MLS/HR; Start 07/31/18 at 13:00; Stop 08/07/18 at 12:59 Phenazopyridine HCl (Pyridium) 200 mg TID PO Last administered on 08/02/18at 20:32; Admin Dose 200 MG; Start 08/02/18 at 13:00 Amlodipine Besylate (Norvasc) 10 mg DAILY PO Last administered on 08/03/18at 09:31; Admin Dose 10 MG; Start 08/03/18 at 09:00 Hydromorphone HCl (Dilaudid) 0.5 mg Q6H PRN IV SEVERE PAIN LEVEL 7-10 Last administered on 08/03/18at 12:51; Admin Dose 0.5 MG; Start 08/02/18 at 12:30 Meds reviewed: Yes Allergies Coded Allergies: metformin (Unverified Allergy, Intermediate, Diarrhea, 07/29/18) acetaminophen (Verified Allergy, Unknown, 07/29/18) codeine (Unverified Allergy, Unknown, 07/29/18) hydrocodone (Verified Allergy, Unknown, 07/29/18) tramadol (Verified Allergy, Unknown, 07/29/18) Uncoded Allergies: ANTIBIOTICS (Allergy, Severe, 06/04/17) unknown antibiotic ANTIBIOTICS UNKNOWN (Allergy, Unknown, 03/24/18) PATIENT SAYS HIS ALLERGIC TO SOME OF THE ANTIBIOTICS Allergies Reviewed: Yes Labs/Studies Labs Reviewed: Reviewed by anesthesiologist Result Diagram: 08/03/18 0441 08/03/18 0441 Laboratory Tests 08/03/18 04:41 test: N/A Pre-procedure Exam Last vitals Vital Signs Date Temp Pulse Resp B/P (MAP) Pulse Ox O2 O2 Flow FiO2 Time Delivery Rate 08/03/18 98.2 83 22 172/74 97 17:28 (106) 07/30/18 Room Air 14:22 Airway: Adequate mouth opening Mallampati: Mallampati I Teeth: Abnormal (Front teeth remaining) Lung: Normal Heart: Normal ASA Physical Status ASA physical status: 3 Emergency: None Planned Anesthetic General/MAC: MAC Planned Pain Management Parenteral pain med Pre-operative Attestations Prior to commencing anesthesia and surgery, the patient was re-evaluated, there was verification of: *The patient's identity *The results of appropriate recent lab work and preoperative vital signs *The above evaluation not changing prior to induction *Anesthetic plan, risk benefits, alternative and complications discussed with patient/family; questions answered; patient/family understands, accepts and wishes to proceed. TREVON DANIEL MD August 03, 2018 17:48
--- NOTE | 2018-08-03 18:39 | HPN ---
Date/Time of Note Date/Time of Note DATE: 08/03/18 TIME: 18:39 Interval H&P Admission Note Pt. seen H&P reviewed: No system changes MARYCRUZ SAUCEDO MD August 03, 2018 18:39
[2018-08-03] MEDS ORDERED: PROPOFOL 20 ML ONE (18:40)
--- NOTE | 2018-08-03 19:41 | CONS ---
DATE OF ADMISSION: 07/30/2018 DATE OF CONSULTATION: 08/03/2018 TYPE OF CONSULTATION: Nephrology. REASON FOR CONSULTATION: Hyponatremia. PHYSICIAN REQUESTING CONSULT: Simone Eddy MD HISTORY OF PRESENT ILLNESS: This is a 63-year-old male with a past medical history of diabetes, hist ory of chronic kidney disease stage III, history of hypertension, BPH, UTI, who presents to [facility] with fevers and chills x2 days. The patient denies dysuria, hematuria. Denied a ny cough, shortness of breath, nausea, vomiting. The patient upon arrival to the emergency room had laboratory data drawn which showed white count of 15,000, BUN of 31 and creatinine 1.35. UA shows po sitive pyuria. Chest x-ray was unremarkable. The patient was febrile in the emergency room and was started on IV antibiotics and admitted to med/surg for evaluation. In terms of patient's renal history, the patient has underlying CKD with previous baseline creatinine s around 1.2 to 1.8 mg/dL. On admission, the patient's creatinine has 1.3 mg/dL. The patient was al so on admission noted to be hyponatremic with sodium level 131 mEq per liter. The patient's sodium l evels have been fluctuating but this morning it was noted to be 129 mEq per liter. During this time, the patient has been receiving antibiotic therapy. The patient has also been given IV fluids. PAST MEDICAL HISTORY: As stated above, history of hypertension, dyslipidemia, CKD, history of BPH, d iabetes. PAST SURGICAL HISTORY: Has been reviewed. ALLERGIES: PLEASE SEE LIST. FAMILY HISTORY: No family history of kidney disease. SOCIAL HISTORY: Does not drink, smoke or do drugs. MEDICATIONS: Have been reviewed. REVIEW OF SYSTEMS: A 14-point review of systems conducted. Pertinent positives stated in HPI, other chinchilla negative. PHYSICAL EXAMINATION: VITAL SIGNS: Blood pressure is 172/74, respirations 22, pulse 83, temperature 98.2. HEENT: Head is normocephalic. NECK: Supple. HEART: Regular rate. LUNGS: Show diminished breath sounds at the base. ABDOMEN: Soft, nontender to palpation without rebound or guarding. EXTREMITIES: Negative for clubbing, cyanosis. No edema. DERMATOLOGIC: No rashes. MUSCULOSKELETAL: No joint effusions. NEUROLOGIC: No change in exam. LABORATORY DATA: Have been reviewed. ASSESSMENT AND PLAN: This is a 63-year-old male who presents with: 1. Hyponatremia. Etiology is multifactorial secondary to chronic kidney disease causing decreased f ree water urinary excretion, questionable history of Dyazide use. Recommendation and plan at this po int would be to repeat urinalysis and check urine sodium, urine osmolality. We will also check uric acid level, a.m. cortisol level. We would recommend to place the patient on free water restriction a nd we will monitor serial sodium levels. 2. Chronic kidney disease. Renal function appears near baseline. We will continue current treatmen t plans, supportive care, renally dose all meds, avoid nephrotoxicity. 3. Anemia. Monitor hemoglobin and hematocrit levels. 4. Mineral bone disorder. Monitor calcium and phosphorus levels. 5. Sepsis secondary to urinary tract infection, pyelonephritis. Continue current medical regimen. 6. Diabetes. Continue current insulin regimen. 7. Dyslipidemia. Continue statin therapy. 8. Benign prostatic hypertrophy. Continue Proscar. 9. Hypertension. Continue current blood pressure regimen. 10. Chronic neurogenic bladder. Continue to monitor. 11. Diffuse pelvic lymphadenopathy with perirectal inguinal lymph nodes. The patient is planning co lonoscopy. Thank you, Dr. Eddy, for this interesting consult. It will be a pleasure to follow patient with you t hroughout the hospital course. Dictated By: MIS JACOBS DO NR/NTS Conf#: [id number] DID#: [id number] CC: SIMONE EDDY MD; JUAN DANIEL AZEVEDO MD; CORWIN EMANUEL MD;*End*
[2018-08-03] MEDS: INSULIN GLARGINE [LANTus] (100 UNITS/ML) SYG SC SCH (20:00)
[2018-08-03] MEDS: TAMSULOSIN (SR) 0.4 MG CAP PO SCH (20:39)
[2018-08-03] MEDS: ATORVASTATIN 80 MG TAB PO SCH (20:39)
[2018-08-04 01:56] VITALS: BP 156/74; PULSE 90; RESP 18
[2018-08-04] MEDS: ACCU-CHEK XX SCH (02:00)
[2018-08-04] MEDS: HYDROmorphONE 0.5 MG/0.5 ML SYG IV PRN ×3 (03:16→23:27)
[2018-08-04 07:36] VITALS: BP 147/70; PULSE 99; RESP 17
--- NOTE | 2018-08-04 07:49 | PAC ---
Date/Time of Note Date/Time of Note DATE: 08/04/18 TIME: 07:49 Post-Anesthesia Notes Post-Anesthesia Note Last documented vital signs Vital Signs Date Temp Pulse Resp B/P (MAP) Pulse Ox O2 O2 Flow FiO2 Time Delivery Rate 08/04/18 98.3 99 17 147/70 93 Room Air 07:36 (95) Activity: WNL Respiratory function: WNL Cardiovascular function: WNL Mental status: Baseline Pain reasonably controlled: Yes Hydration appropriate: Yes Nausea/Vomiting absent: Yes TREVON DANIEL MD August 04, 2018 07:49
[2018-08-04] MEDS: INSULIN ASPART [NOVOLOG] 3 ML PEN SC SCH ×7 (08:00→20:48)
[2018-08-04] MEDS: FINASTERIDE 5 MG TAB PO SCH (08:52)
[2018-08-04] MEDS: AMLODIPINE 10 MG TAB PO SCH (08:52)
[2018-08-04] MEDS: PHENAZOPYRIDINE 200 MG TAB PO SCH ×3 (08:52→20:46)
[2018-08-04] MEDS: GABAPENTIN 300 MG CAP PO SCH ×3 (08:52→20:46)
[2018-08-04] MEDS: ASPIRIN (EC) 81 MG TAB PO SCH (08:52)
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
--- NOTE | 2018-08-04 12:32 | CONS ---
Assessment/Plan Assessment/Plan Hospital Course (Demo Recall) No acute changes overnight no fevers. Patient is sleeping, looks comfortable. WBC 14.7 neutrophils 72.4 BUN [address] abdomen and pelvis revealed slightly increased the size of the subcapsular fluid collection. Interval increase in the low to intermediate density perinephric fluid collection posterior and inferior to the right kidney. Presence of foci of air within the perinephric fluid collection with consideration of developing abscess. Please see full report in the chart Antimicrobials: Invanz Microbiology: Urine culture on admission grew E. coli ESBL Physical examination: Well-developed elderly man who is in no distress. Head atraumatic normocephalic neck is supple chest rise symmetrical breath sounds diminished bases. Heart: S1-S2 abdomen soft bowel sounds present Assessment: 1. E. coli ESBL UTI 2. BPH 3. Diabetes 4. Anemia 5. Subacute right subcapsular hematoma with mild left hydronephrosis ?abscess Plan: Patient remains stable, on appropriate antibiotic regimen, continue antibiotics, pending urology evaluation Consultation Date/Type/Reason Admit Date/Time July 30, 2018 at 08:40 Initial Consult Date 08/02/18 Type of Consult id Date/Time of Note DATE: 08/04/18 TIME: 12:31 Exam/Review of Systems Exam Vitals Vital Signs Date Temp Pulse Resp B/P (MAP) Pulse Ox O2 O2 Flow FiO2 Time Delivery Rate 08/04/18 98.3 99 17 147/70 93 Room Air 07:36 (95) Intake and Output 08/03/18 08/03/18 08/04/18 1414:59 22:59 06:59 IntakeIntake Total 0 ml 100 ml 460 ml BalanceBalance 0 ml 100 ml 460 ml Results Result Diagram: 08/04/18 0510 08/04/18 0509 Results 24hrs Laboratory Tests Test 08/03/18 12:43 08/03/18 15:00 08/03/18 17:20 08/03/18 20:38 Bedside Glucose 81 90 72 Urine Color PEGGY Urine Clarity CLEAR Urine pH 5.0 Urine Specific 1.008 [place] Urine Ketones NEGATIVE Urine Nitrite POSITIVE A Urine Bilirubin NEGATIVE Urine Urobilinogen 1+ H Urine Leukocyte NEGATIVE Esterase Urine Microscopic 7 H RBC Urine Microscopic 41 H WBC Urine Hemoglobin 1+ H Urine Osmolality 259 Urine Random 55.76 Creatinine Urine Random Sodium 62 Urine Glucose NEGATIVE Urine Total Protein 63.0 H Test 08/04/18 05:09 08/04/18 05:10 08/04/18 08:49 Sodium Level 133 L Potassium Level 4.3 Chloride Level 100 Carbon Dioxide Level 23 Anion Gap 10 Blood Urea Nitrogen 24 H Creatinine 1.23 Est Glomerular 59 L Filtrat Rate mL/min Glucose Level 115 Calcium Level 8.5 Random Cortisol 9.1 White Blood Count 14.7 H Red Blood Count 3.64 L Hemoglobin 9.0 L Hematocrit 28.0 L Mean Corpuscular 76.9 L Volume Mean Corpuscular 24.7 L Hemoglobin Mean Corpuscular 32.1 Hemoglobin Concent Red Cell 13.8 Distribution Width Platelet Count 494 H Mean Platelet Volume 8.4 Immature 0.500 H Granulocytes % Neutrophils % 72.4 Lymphocytes % 19.7 Monocytes % 5.7 Eosinophils % 1.4 Basophils % 0.3 Nucleated Red Blood 0.0 Cells % Immature 0.080 H Granulocytes # Neutrophils # 10.6 H Lymphocytes # 2.9 Monocytes # 0.8 Eosinophils # 0.2 Basophils # 0.1 Nucleated Red Blood 0.0 Cells # Bedside Glucose 131 Medications Medication Current Medications Aspirin (Halfprin) 81 mg DAILY PO Last administered on 08/04/18 08:52; Admin Dose 81 MG; Start 07/30/18 at 09:00 Atorvastatin Calcium (Lipitor) 80 mg QHS PO Last administered on 08/03/18 20:39; Admin Dose 80 MG; Start 07/29/18 at 21:00 Finasteride (Proscar) 5 mg DAILY PO Last administered on 08/04/18 08:52; Admin Dose 5 MG; Start 07/30/18 at 09:00 Tamsulosin HCl (Flomax) 0.4 mg HS PO Last administered on 08/03/18 20:39; Admin Dose 0.4 MG; Start 07/29/18 at 21:00 IV Flush (NS 3 ml) 3 ml PER PROTOCOL IV ; Start 07/29/18 at 15:30 Ondansetron HCl (Zofran Inj) 4 mg Q6H PRN IV NAUSEA/VOMITING Last administered on 08/02/18 18:28; Admin Dose 4 MG; Start 07/29/18 at 15:30 Acetaminophen (Tylenol Tab) 650 mg Q6H PRN PO .PAIN 1-3 OR TEMP Last administered on 5/28/19at 08:20; Admin Dose 650 MG; Start 07/29/18 at 15:30 Diagnostic Test (Pha) (Accu-Chek) 1 ea 02 XX ; Start 07/30/18 at 02:00 Insulin Glargine (Lantus) 10 units DAILY@2000 SC Last administered on 08/01/18 21:03; Admin Dose 10 UNITS; Start 07/29/18 at 20:00 Insulin Aspart (Novolog Insulin Pen) 3 unit WITH MEALS SC Last administered on 08/04/18 08:55; Admin Dose 3 UNIT; Start 07/29/18 at 18:00 Insulin Aspart (Novolog Insulin Pen) NOVOLOG *MILD* ALGORITHM WITH MEALS BEDTIME SC Last administered on 08/01/18 21:02; Admin Dose 2 UNIT; Start 07/29/18 at 18:00 Miscellaneous Information 1 ea NOTE XX ; Start 07/29/18 at 16:00 Glucose (Glutose) 15 gm Q15M PRN PO DECREASED GLUCOSE; Start 07/29/18 at 16:00 Glucose (Glutose) 22.5 gm Q15M PRN PO DECREASED GLUCOSE; Start 07/29/18 at 16:00 Dextrose (D50w Syringe) 25 ml Q15M PRN IV DECREASED GLUCOSE; Start 07/29/18 at 16:00 Dextrose (D50w Syringe) 50 ml Q15M PRN IV DECREASED GLUCOSE; Start 07/29/18 at 16:00 Glucagon (Glucagen) 1 mg Q15M PRN IM DECREASED GLUCOSE; Start 07/29/18 at 16:00 Glucose (Glutose) 15 gm Q15M PRN BUCCAL DECREASED GLUCOSE; Start 07/29/18 at 16:00 Metoclopramide HCl (Reglan) 5 mg Q6H PRN IV nausea Last administered on 07/30/18at 17:44; Admin Dose 5 MG; Start 07/30/18 at 14:30 Gabapentin (Neurontin) 300 mg TID PO Last administered on 08/04/18at 08:52; Admin Dose 300 MG; Start 07/30/18 at 23:00 Ertapenem 1 gm/ Sodium Chloride 100 ml @ 200 mls/hr Q24H IVPB Last administered on 08/03/18at 14:24; Admin Dose 200 MLS/HR; Start 07/31/18 at 13:00; Stop 08/07/18 at 12:59 Phenazopyridine HCl (Pyridium) 200 mg TID PO Last administered on 08/04/18at 08:52; Admin Dose 200 MG; Start 08/02/18 at 13:00 Amlodipine Besylate (Norvasc) 10 mg DAILY PO Last administered on 08/04/18at 08:52; Admin Dose 10 MG; Start 08/03/18 at 09:00 Hydromorphone HCl (Dilaudid) 0.5 mg Q6H PRN IV SEVERE PAIN LEVEL 7-10 Last administered on 08/04/18at 03:16; Admin Dose 0.5 MG; Start 08/02/18 at 12:30 Heparin Sodium (Porcine) (Heparin (5000 Units/1ml)) 5,000 unit BID SC ; Start 08/04/18 at 21:00 BELL WEEMS NP August 04, 2018 12:32
[2018-08-04 13:25] VITALS: BP 144/65; PULSE 85; RESP 17
--- NOTE | 2018-08-04 13:27 | PN ---
Date/Time of Note Date/Time of Note DATE: 08/04/18 TIME: 13:24 Assessment/Plan VTE Prophylaxis Risk score (from Ns)>0 risk: 2 SCD applied (from Ns): Yes Pharmacological prophylaxis: other (scds) Lines/Catheters IV Catheter Type (from [facility]): Mid Line Urinary Cath still in place: No Assessment/Plan Hospital Course Summary Assessment and Plan: Assessment: Abnormal CT showing -Several perirectal lymph nodes subtle thinking of the clark of the rectum . R/o rectal malignancy Colonoscopy 08/03/2018 Severely deformed anal area related to previous surgical intervention. Normal colonic mucosa. Random biopsies obtained in the area of the rectum Acute kidney injury. Diabetes, poorly controlled High cholesterol History of BPH Hypertension Plan: Advance diet as tolerated Await pathology Patient seen in collaboration with Dr. Hernandez Subjective: Course reviewed with nursing staff Patient interviewed and examined All labs, imaging and other results reviewed The patient resting in bed, no over night events discussed results of colonoscopy pt verbalized understanding. PHYSICAL EXAMINATION: GENERAL: Alert & oriented x 3, in no acute distress SKIN: No lesions LYMPHATIC: No palpable lymphadenopathy. HEAD: Normocephalic, atraumatic, no tenderness. EYES: Pupils equal reactive to light and accommodation, no discharge. EARS/NOSE AND THROAT: Ears normal, nose normal. NECK: Supple, no masses. CHEST: Inspection within normal limits. CARDIOVASCULAR: Heart: Regular rate and rhythm RESPIRATORY: Lungs clear to auscultation GASTROINTESTINAL AND LIVER: Abdomen: Soft, non tenderness, non-distended, no hernias, no masses, no organomegaly, no ascites, no guarding, no rebound tender ness, normoactive bowel sounds. Rectal: Deferred. EXTREMITIES: No cyanosis, clubbing or edema Result Diagram: 08/04/18 0510 08/04/18 0509 Results 24hrs Laboratory Tests Test 08/03/18 15:00 08/03/18 17:20 08/03/18 20:38 08/04/18 05:09 Urine Color PEGGY Urine Clarity CLEAR Urine pH 5.0 Urine Specific 1.008 [place] Urine Ketones NEGATIVE Urine Nitrite POSITIVE A Urine Bilirubin NEGATIVE Urine Urobilinogen 1+ H Urine Leukocyte NEGATIVE Esterase Urine Microscopic 7 H RBC Urine Microscopic 41 H WBC Urine Hemoglobin 1+ H Urine Osmolality 259 Urine Random 55.76 Creatinine Urine Random Sodium 62 Urine Glucose NEGATIVE Urine Total Protein 63.0 H Bedside Glucose 90 72 Sodium Level 133 L Potassium Level 4.3 Chloride Level 100 Carbon Dioxide Level 23 Anion Gap 10 Blood Urea Nitrogen 24 H Creatinine 1.23 Est Glomerular 59 L Filtrat Rate mL/min Glucose Level 115 Calcium Level 8.5 Random Cortisol 9.1 Test 08/04/18 05:10 08/04/18 08:49 White Blood Count 14.7 H Red Blood Count 3.64 L Hemoglobin 9.0 L Hematocrit 28.0 L Mean Corpuscular 76.9 L Volume Mean Corpuscular 24.7 L Hemoglobin Mean Corpuscular 32.1 Hemoglobin Concent Red Cell 13.8 Distribution Width Platelet Count 494 H Mean Platelet Volume 8.4 Immature 0.500 H Granulocytes % Neutrophils % 72.4 Lymphocytes % 19.7 Monocytes % 5.7 Eosinophils % 1.4 Basophils % 0.3 Nucleated Red Blood 0.0 Cells % Immature 0.080 H Granulocytes # Neutrophils # 10.6 H Lymphocytes # 2.9 Monocytes # 0.8 Eosinophils # 0.2 Basophils # 0.1 Nucleated Red Blood 0.0 Cells # Bedside Glucose 131 Exam/Review of Systems Exam Vitals Vital Signs Date Temp Pulse Resp B/P (MAP) Pulse Ox O2 O2 Flow FiO2 Time Delivery Rate 08/04/18 98.3 99 17 147/70 93 Room Air 07:36 (95) Intake and Output 08/03/18 08/03/18 08/04/18 1515:00 23:00 07:00 IntakeIntake Total 100 ml 460 ml BalanceBalance 100 ml 460 ml Results Results 24hrs Laboratory Tests Test 08/03/18 15:00 08/03/18 17:20 08/03/18 20:38 08/04/18 05:09 Urine Color PEGGY Urine Clarity CLEAR Urine pH 5.0 Urine Specific 1.008 [place] Urine Ketones NEGATIVE Urine Nitrite POSITIVE A Urine Bilirubin NEGATIVE Urine Urobilinogen 1+ H Urine Leukocyte NEGATIVE Esterase Urine Microscopic 7 H RBC Urine Microscopic 41 H WBC Urine Hemoglobin 1+ H Urine Osmolality 259 Urine Random 55.76 Creatinine Urine Random Sodium 62 Urine Glucose NEGATIVE Urine Total Protein 63.0 H Bedside Glucose 90 72 Sodium Level 133 L Potassium Level 4.3 Chloride Level 100 Carbon Dioxide Level 23 Anion Gap 10 Blood Urea Nitrogen 24 H Creatinine 1.23 Est Glomerular 59 L Filtrat Rate mL/min Glucose Level 115 Calcium Level 8.5 Random Cortisol 9.1 Test 08/04/18 05:10 08/04/18 08:49 White Blood Count 14.7 H Red Blood Count 3.64 L Hemoglobin 9.0 L Hematocrit 28.0 L Mean Corpuscular 76.9 L Volume Mean Corpuscular 24.7 L Hemoglobin Mean Corpuscular 32.1 Hemoglobin Concent Red Cell 13.8 Distribution Width Platelet Count 494 H Mean Platelet Volume 8.4 Immature 0.500 H Granulocytes % Neutrophils % 72.4 Lymphocytes % 19.7 Monocytes % 5.7 Eosinophils % 1.4 Basophils % 0.3 Nucleated Red Blood 0.0 Cells % Immature 0.080 H Granulocytes # Neutrophils # 10.6 H Lymphocytes # 2.9 Monocytes # 0.8 Eosinophils # 0.2 Basophils # 0.1 Nucleated Red Blood 0.0 Cells # Bedside Glucose 131 Medications Medication Current Medications Aspirin (Halfprin) 81 mg DAILY PO Last administered on 08/04/18 08:52; Admin Dose 81 MG; Start 07/30/18 at 09:00 Atorvastatin Calcium (Lipitor) 80 mg QHS PO Last administered on 08/03/18 20:39; Admin Dose 80 MG; Start 07/29/18 at 21:00 Finasteride (Proscar) 5 mg DAILY PO Last administered on 08/04/18 08:52; Admin Dose 5 MG; Start 07/30/18 at 09:00 Tamsulosin HCl (Flomax) 0.4 mg HS PO Last administered on 08/03/18 20:39; Admin Dose 0.4 MG; Start 07/29/18 at 21:00 IV Flush (NS 3 ml) 3 ml PER PROTOCOL IV ; Start 07/29/18 at 15:30 Ondansetron HCl (Zofran Inj) 4 mg Q6H PRN IV NAUSEA/VOMITING Last administered on 08/02/18 18:28; Admin Dose 4 MG; Start 07/29/18 at 15:30 Acetaminophen (Tylenol Tab) 650 mg Q6H PRN PO .PAIN 1-3 OR TEMP Last administered on 08/03/18 08:20; Admin Dose 650 MG; Start 07/29/18 at 15:30 Diagnostic Test (Pha) (Accu-Chek) 1 ea 02 XX ; Start 07/30/18 at 02:00 Insulin Glargine (Lantus) 10 units DAILY@2000 SC Last administered on 08/01/18 21:03; Admin Dose 10 UNITS; Start 07/29/18 at 20:00 Insulin Aspart (Novolog Insulin Pen) 3 unit WITH MEALS SC Last administered on 08/04/18 08:55; Admin Dose 3 UNIT; Start 07/29/18 at 18:00 Insulin Aspart (Novolog Insulin Pen) NOVOLOG *MILD* ALGORITHM WITH MEALS BEDTIME SC Last administered on 08/01/18 21:02; Admin Dose 2 UNIT; Start at 18:00 Miscellaneous Information 1 ea NOTE XX ; Start 07/29/18 at 16:00 Glucose (Glutose) 15 gm Q15M PRN PO DECREASED GLUCOSE; Start 07/29/18 at 16:00 Glucose (Glutose) 22.5 gm Q15M PRN PO DECREASED GLUCOSE; Start 07/29/18 at 16:00 Dextrose (D50w Syringe) 25 ml Q15M PRN IV DECREASED GLUCOSE; Start 07/29/18 at 16:00 Dextrose (D50w Syringe) 50 ml Q15M PRN IV DECREASED GLUCOSE; Start 07/29/18 at 16:00 Glucagon (Glucagen) 1 mg Q15M PRN IM DECREASED GLUCOSE; Start 07/29/18 at 16:00 Glucose (Glutose) 15 gm Q15M PRN BUCCAL DECREASED GLUCOSE; Start 07/29/18 at 16:00 Metoclopramide HCl (Reglan) 5 mg Q6H PRN IV nausea Last administered on 07/30/18at 17:44; Admin Dose 5 MG; Start 07/30/18 at 14:30 Gabapentin (Neurontin) 300 mg TID PO Last administered on 08/04/18at 08:52; Admin Dose 300 MG; Start 07/30/18 at 23:00 Ertapenem 1 gm/ Sodium Chloride 100 ml @ 200 mls/hr Q24H IVPB Last ad ministered on 08/03/18at 14:24; Admin Dose 200 MLS/HR; Start 07/31/18 at 13:00; Stop 08/07/18 at 12:59 Phenazopyridine HCl (Pyridium) 200 mg TID PO Last administered on 08/04/18at 08:52; Admin Dose 200 MG; Start 08/02/18 at 13:00 Amlodipine Besylate (Norvasc) 10 mg DAILY PO Last administered on 08/04/18at 08:52; Admin Dose 10 MG; Start 08/03/18 at 09:00 Hydromorphone HCl (Dilaudid) 0.5 mg Q6H PRN IV SEVERE PAIN LEVEL 7-10 Last administered on 08/04/18at 03:16; Admin Dose 0.5 MG; Start 08/02/18 at 12:30 Heparin Sodium (Porcine) (Heparin (5000 Units/1ml)) 5,000 unit BID SC ; Start 08/04/18 at 21:00 ANNA WASHINGTON August 04, 2018 13:27
--- NOTE | 2018-08-04 13:50 | CONS ---
Assessment/Plan Assessment/Plan Hospital Course (Demo Recall) 63-year-old male has a long-standing history of diabetes, chronic kidney disease, hypertension, BPH, and urinary tract infection causing sepsis requiring multiple hospitalization was sent by his primary care physician to the emergency room because he was found to have bad infection in his urine. Patient has been having fever and chills over 2 days prior to admission. He denied dysuria, hem aturia, urinary frequency, urgency, dribbling, nocturia. He underwent CT scan of the abdomen and pelvis and that showed: 1. Although there has been interval decrease in density of the right subcapsu lar hematoma, overall the size of the subcapsular collection has been slightly increased. 2. Interval increase in the low to intermediate density perinephric fluid collection posterior and inferior to the right kidney. 3. Single focus of air is seen within the subcapsular collection which is nonsp ecific. Additional foci of air seen within the perinephric fluid collection. Clinical correlation with possible developing abscess is recommended. 4. Small amount of linear fluid collection outside of the Gerota's fascia extending posteriorly and inferiorly along the right paracolic gutter which is new compared to prior study. 5. Near complete resolution of the bilateral pleural effusions. 6. Persistent hepatosplenomegaly with diffuse hepatic steatosis. 7. Persistent subcentimeter retroperitoneal and mesenteric lymph nodes. A urological consultation was therefore requested I reviewed the CT scan with the radiologist and it would be better to repeat the CT scan of the abdomen and pelvis with contrast material this time. Consultation Date/Type/Reason Admit Date/Time July 30, 2018 at 08:40 Date of Consultation: August 04, 2018 Type of Consult Urology Reason for Consultation Possible left renal/perirenal abscess and subcapsular hematoma Requesting Provider: SIMONE EDDY Date/Time of Note DATE: 08/04/18 TIME: 13:50 Hx of Present Illness 63-year-old male has a long-standing history of diabetes, chronic kidney disease , hypertension, BPH, and urinary tract infection causing sepsis requiring multiple hospitalization was sent by his primary care physician to the emergency room because he was found to have bad infection in his urine. Patient has been having fever and chills over 2 days prior to admission. He denied dysuria, hematuria, urinary frequency, urgency, dribbling, nocturia. He underwent CT scan of the abdomen and pelvis and that showed: 1. Although there has been interval decrease in density of the right subcapsular hematoma, overall the size of the subcapsular collection has been slightly increased. 2. Interval increase in the low to intermediate density perinephric fluid collection posterior and inferior to the right kidney. 3. Single focus of air is seen within the subcapsular collection which is nonspecific. Additional foci of air seen within the perinephric fluid collection. Clinical correlation with possible developing abscess is recommended. 4. Small amount of linear fluid collection outside of the Gerota's fascia extending posteriorly and inferiorly along the right paracolic gutter which is new compared to prior study. 5. Near complete resolution of the bilateral pleural effusions. 6. Persistent hepatosplenomegaly with diffuse hepatic steatosis. 7. Persistent subcentimeter retroperitoneal and mesenteric lymph nodes. A urological consultation was therefore requested Constitutional: chills (On admission) Eyes: no complaints ENT: no complaints Respiratory: No shortness of breath, No wheezing Cardiovascular: no complaints Gastrointestinal: no complaints Genitourinary: No dysuria Musculoskeletal: no complaints Skin: no complaints Neurologic: no complaints Endocrine: no complaints Past Medical History Medical History: diabetes, high cholesterol, hypertension, other (Question of BPH) Home Meds Reported Medications Mirtazapine* (Remeron*) Unknown Strength Tablet, 1 TAB PO HS, TAB 07/29/18 Tamsulosin Hcl* (Flomax*) 0.4 Mg Cap.er.24h, 0.4 MG PO HS, CAP 07/29/18 Atorvastatin* (Atorvastatin*) 80 Mg Tablet, 80 MG PO QHS, #30 TAB 07/29/18 Gabapentin* (Gabapentin*) 300 Mg Capsule, 300 MG PO DAILY, #60 CAP 07/29/18 Finasteride* (Finasteride*) 5 Mg Tablet, 5 MG PO DAILY, TAB 07/29/18 Aspirin* (Aspirin* EC) 81 Mg Tablet.dr, 81 MG PO DAILY, TAB 07/29/18 Lisinopril/Hydrochlorothiazide (Lisinopril-Hctz 20-12.5 mg Tab) 1 Each Tablet, 1 EACH PO BID, TAB 07/29/18 Discontinued Reported Medications Nitroglycerin* (Nitroglycerin* SL) 0.4 Mg Tab.subl, 0.4 MG SL Q5MIN PRN for CHEST PAIN, BOTTLE 01/03/14 Discontinued Scripts Nitrofurantoin Monohyd Macrocr* (Macrobid*) 100 Mg Capsr, 100 MG PO BID for 14 Days, CAP Prov:MAICOLDILLONHALIMA BERRY 07/24/18 Tamsulosin Hcl* (Tamsulosin Hcl*) 0.4 Mg Cap.er.24h, 0.4 MG PO HS, #60 CAP Prov:ADELFOBILLRosio 03/27/18 Finasteride* (Proscar*) 5 Mg Tablet, 5 MG PO DAILY, #60 TAB Prov:CORWIN EMANUEL 03/27/18 Amlodipine Besylate* (Amlodipine Besylate*) 2.5 Mg Tablet, 2.5 MG PO DAILY, #30 TAB Prov:YOUNGCARLINE V. DIRECTOR [employer] 01/21/18 Insulin Aspart* (Novolog Insulin Pen*) 100 Unit/Ml Soln, 5 UNIT SC WITH MEALS for 30 Days, #30 DOSE Prov:YOUNGCARLINE Billy. DIRECTOR [employer] 01/21/18 [place]-3/Dha/Epa/Fish Oil (FISH OIL EC 1,000 MG SOFTGEL) 1 Each Capsule.dr, 1000 MG PO BID, #30 CAP Prov:LANDON WAGGONER NP 06/07/17 Insulin Glargine* (Lantus*) 100 Unit/Ml Soln, 45 UNIT SC DAILY@08 for 30 Days Prov:LANDON WAGGONER NP 06/07/17 Atorvastatin (Atorvastatin) 10 Mg Tablet, 20 MG PO HS, #30 TAB Prov:LANDON WAGGONER DIRECTOR [employer] 06/07/17 Hydralazine Hcl* (Hydralazine Hcl*) 25 Mg Tab, 25 MG PO TID for 30 Days, #30 TAB 2 Refills Prov:LANDON WAGGONER NP 06/07/17 Gabapentin* (Neurontin*) 300 Mg Capsule, 300 MG PO DAILY, #30 CAP Prov:REGLANDON PERERA NP 06/07/17 Loratadine* (Claritin*) 10 Mg Capsule, 10 MG PO DAILY for 10 Days, CAP Prov:SHITAL LEACH 12/08/16 Medications Current Medications Aspirin (Halfprin) 81 mg DAILY PO Last administered on 08/04/18at 08:52; Admin Dose 81 MG; Start 07/30/18 at 09:00 Atorvastatin Calcium (Lipitor) 80 mg QHS PO Last administered on 08/03/18 20:39; Admin Dose 80 MG; Start 07/29/18 at 21:00 Finasteride (Proscar) 5 mg DAILY PO Last administered on 08/04/18 08:52; Admin Dose 5 MG; Start 07/30/18 at 09:00 Tamsulosin HCl (Flomax) 0.4 mg HS PO Last administered on 08/03/18 20:39; Admin Dose 0.4 MG; Start 07/29/18 at 21:00 IV Flush (NS 3 ml) 3 ml PER PROTOCOL IV ; Start 07/29/18 at 15:30 Ondansetron HCl (Zofran Inj) 4 mg Q6H PRN IV NAUSEA/VOMITING Last administered on 08/02/18 18:28; Admin Dose 4 MG; Start 07/29/18 at 15:30 Acetaminophen (Tylenol Tab) 650 mg Q6H PRN PO .PAIN 1-3 OR TEMP Last admi nistered on 08/03/18 08:20; Admin Dose 650 MG; Start 07/29/18 at 15:30 Diagnostic Test (Pha) (Accu-Chek) 1 ea 02 XX ; Start 07/30/18 at 02:00 Insulin Glargine (Lantus) 10 units DAILY@2000 SC Last administered on 08/01/18 21:03; Admin Dose 10 UNITS; Start 07/29/18 at 20:00 Insulin Aspart (Novolog Insulin Pen) 3 unit WITH MEALS SC Last administered on 08/04/18 13:45; Admin Dose 3 UNIT; Start 07/29/18 at 18:00 Insulin Aspart (Novolog Insulin Pen) NOVOLOG *MILD* ALGORITHM WITH MEALS BEDTIME SC Last administered on 08/04/18 13:44; Admin Dose 3 UNIT; Start 07/29/18 at 18:00 Miscellaneous Information 1 ea NOTE XX ; Start 07/29/18 at 16:00 Glucose (Glutose) 15 gm Q15M PRN PO DECREASED GLUCOSE; Start 07/29/18 at 16:00 Glucose (Glutose) 22.5 gm Q15M PRN PO DECREASED GLUCOSE; Start 07/29/18 at 16:00 Dextrose (D50w Syringe) 25 ml Q15M PRN IV DECREASED GLUCOSE; Start 07/29/18 at 16:00 Dextrose (D50w Syringe) 50 ml Q15M PRN IV DECREASED GLUCOSE; Start 07/29/18 at 16:00 Glucagon (Glucagen) 1 mg Q15M PRN IM DECREASED GLUCOSE; Start 07/29/18 at 16:00 Glucose (Glutose) 15 gm Q15M PRN BUCCAL DECREASED GLUCOSE; Start 07/29/18 at 16:00 Metoclopramide HCl (Reglan) 5 mg Q6H PRN IV nausea Last administered on 07/30/18at 17:44; Admin Dose 5 MG; Start 07/30/18 at 14:30 Gabapentin (Neurontin) 300 mg TID PO Last administered on 08/04/18 08:52; Admin Dose 300 MG; Start 07/30/18 at 23:00 Ertapenem 1 gm/ Sodium Chloride 100 ml @ 200 mls/hr Q24H IVPB Last administered on 08/03/18 14:24; Admin Dose 200 MLS/HR; Start 07/31/18 at 13:00; Stop 08/07/18 at 12:59 Phenazopyridine HCl (Pyridium) 200 mg TID PO Last administered on 08/04/18at 08:52; Admin Dose 200 MG; Start 08/02/18 at 13:00 Amlodipine Besylate (Norvasc) 10 mg DAILY PO Last administered on 08/04/18 08:52; Admin Dose 10 MG; Start 08/03/18 at 09:00 Hydromorphone HCl (Dilaudid) 0.5 mg Q6H PRN IV SEVERE PAIN LEVEL 7-10 Last a dministered on 08/04/18at 03:16; Admin Dose 0.5 MG; Start 08/02/18 at 12:30 Heparin Sodium (Porcine) (Heparin (5000 Units/1ml)) 5,000 unit BID SC ; Start 08/04/18 at 21:00 Morphine Sulfate (Ms Contin (Er)) 15 mg BID PO ; Start 08/04/18 at 13:30 Allergies: Coded Allergies: metformin (Unverified Allergy, Intermediate, Diarrhea, 07/29/18) acetaminophen (Verified Allergy, Unknown, 07/29/18) codeine (Unverified Allergy, Unknown, 07/29/18) hydrocodone (Verified Allergy, Unknown, 07/29/18) tramadol (Verified Allergy, Unknown, 07/29/18) Uncoded Allergies: ANTIBIOTICS (Allergy, Severe, 06/04/17) unknown antibiotic ANTIBIOTICS UNKNOWN (Allergy, Unknown, 03/24/18) PATIENT SAYS HIS ALLERGIC TO SOME OF THE ANTIBIOTICS Past Surgical History Past Surgical Hx: other (Low back surgery) Social History Alcohol Use: occasionally Smoking Status: Never smoker Drug Use: none Exam/Review of Systems Exam Vitals Vital Signs Date Temp Pulse Resp B/P (MAP) Pulse Ox O2 O2 Flow FiO2 Time Delivery Rate 08/04/18 98.3 85 17 144/65 94 Room Air 13:25 (91) Intake and Output 08/03/18 08/03/18 08/04/18 1515:00 23:00 07:00 IntakeIntake Total 100 ml 460 ml BalanceBalance 100 ml 460 ml Constitutional: alert Psych: no complaints Head: normocephalic Eyes: nl conjunctiva ENMT: nl external ears & nose Neck: supple, non-tender Respiratory: normal air movement; No wheezing Cardiovascular: No jugular venous distention (JVD) Gastrointestinal: soft Genitourinary - Male: CVA tenderness (Left side but the CT scan showed the hematoma possible abscess on the right side) Musculoskeletal: nl extremities to inspection Extremities: No calf tenderness Neurological: nl mental status Skin: nl turgor Results Result Diagram: 08/04/18 0510 08/04/18 0509 Results 24hrs Laboratory Tests Test 08/03/18 15:00 08/03/18 17:20 08/03/18 20:38 08/04/18 05:09 Urine Color PEGGY Urine Clarity CLEAR Urine pH 5.0 Urine Specific 1.008 [place] Urine Ketones NEGATIVE Urine Nitrite POSITIVE A Urine Bilirubin NEGATIVE Urine Urobilinogen 1+ H Urine Leukocyte NEGATIVE Esterase Urine Microscopic 7 H RBC Urine Microscopic 41 H WBC Urine Hemoglobin 1+ H Urine Osmolality 259 Urine Random 55.76 Creatinine Urine Random Sodium 62 Urine Glucose NEGATIVE Urine Total Protein 63.0 H Bedside Glucose 90 72 Sodium Level 133 L Potassium Level 4.3 Chloride Level 100 Carbon Dioxide Level 23 Anion Gap 10 Blood Urea Nitrogen 24 H Creatinine 1.23 Est Glomerular 59 L Filtrat Rate mL/min Glucose Level 115 Calcium Level 8.5 Random Cortisol 9.1 Test 08/04/18 05:10 08/04/18 08:49 08/04/18 13:41 White Blood Count 14.7 H Red Blood Count 3.64 L Hemoglobin 9.0 L Hematocrit 28.0 L Mean Corpuscular 76.9 L Volume Mean Corpuscular 24.7 L Hemoglobin Mean Corpuscular 32.1 Hemoglobin Concent Red Cell 13.8 Distribution Width Platelet Count 494 H Mean Platelet Volume 8.4 Immature 0.500 H Granulocytes % Neutrophils % 72.4 Lymphocytes % 19.7 Monocytes % 5.7 Eosinophils % 1.4 Basophils % 0.3 Nucleated Red Blood 0.0 Cells % Immature 0.080 H Granulocytes # Neutrophils # 10.6 H Lymphocytes # 2.9 Monocytes # 0.8 Eosinophils # 0.2 Basophils # 0.1 Nucleated Red Blood 0.0 Cells # Bedside Glucose [address] scan of the abdomen and pelvis: 1. Although there has been interval decrease in density of the right subcapsular hematoma, overall the size of the subcapsular collection has been slightly increased. 2. Interval increase in the low to intermediate density perinephric fluid collection posterior and inferior to the right kidney. 3. Single focus of air is seen within the subcapsular collection which is nonspecific. Additional foci of air seen within the perinephric fluid collection. Clinical correlation with possible developing abscess is recommended. 4. Small amount of linear fluid collection outside of the Gerota's fascia extending posteriorly and inferiorly along the right paracolic gutter which is new compared to prior study. 5. Near complete resolution of the bilateral pleural effusions. 6. Persistent hepatosplenomegaly with diffuse hepatic steatosis. 7. Persistent subcentimeter retroperitoneal and mesenteric lymph nodes. Renal ultrasound: Subacute right subcapsular hematoma. Mild left hydronephrosis. A ureteral jet was documented. Medications Medication Current Medications Aspirin (Halfprin) 81 mg DAILY PO Last administered on 08/04/18 08:52; Admin Dose 81 MG; Start 07/30/18 at 09:00 Atorvastatin Calcium (Lipitor) 80 mg QHS PO Last administered on 08/03/18 20:39; Admin Dose 80 MG; Start 07/29/18 at 21:00 Finasteride (Proscar) 5 mg DAILY PO Last administered on 08/04/18 08:52; Admin Dose 5 MG; Start 07/30/18 at 09:00 Tamsulosin HCl (Flomax) 0.4 mg HS PO Last administered on 08/03/18 20:39; Admin Dose 0.4 MG; Start 07/29/18 at 21:00 IV Flush (NS 3 ml) 3 ml PER PROTOCOL IV ; Start 07/29/18 at 15:30 Ondansetron HCl (Zofran Inj) 4 mg Q6H PRN IV NAUSEA/VOMITING Last administered on 08/02/18 18:28; Admin Dose 4 MG; Start 07/29/18 at 15:30 Acetaminophen (Tylenol Tab) 650 mg Q6H PRN PO .PAIN 1-3 OR TEMP Last administered on 08/03/18 08:20; Admin Dose 650 MG; Start 07/29/18 at 15:30 Diagnostic Test (Pha) (Accu-Chek) 1 ea 02 XX ; Start 07/30/18 at 02:00 Insulin Glargine (Lantus) 10 units DAILY@2000 SC Last administered on 08/01/18 21:03; Admin Dose 10 UNITS; Start 07/29/18 at 20:00 Insulin Aspart (Novolog Insulin Pen) 3 unit WITH MEALS SC Last administered on 08/04/18 13:45; Admin Dose 3 UNIT; Start 07/29/18 at 18:00 Insulin Aspart (Novolog Insulin Pen) NOVOLOG *MILD* ALGORITHM WITH MEALS BEDTIME SC Last administered on 08/04/18 13:44; Admin Dose 3 UNIT; Start 07/29/18 at 18:00 Miscellaneous Information 1 ea NOTE XX ; Start 07/29/18 at 16:00 Glucose (Glutose) 15 gm Q15M PRN PO DECREASED GLUCOSE; Start 07/29/18 at 16:00 Glucose (Glutose) 22.5 gm Q15M PRN PO DECREASED GLUCOSE; Start 07/29/18 at 16:00 Dextrose (D50w Syringe) 25 ml Q15M PRN IV DECREASED GLUCOSE; Start 07/29/18 at 16:00 Dextrose (D50w Syringe) 50 ml Q15M PRN IV DECREASED GLUCOSE; Start 07/29/18 at 16:00 Glucagon (Glucagen) 1 mg Q15M PRN IM DECREASED GLUCOSE; Start 07/29/18 at 16:00 Glucose (Glutose) 15 gm Q15M PRN BUCCAL DECREASED GLUCOSE; Start 07/29/18 at 16:00 Metoclopramide HCl (Reglan) 5 mg Q6H PRN IV nausea Last administered on 07/30/18 17:44; Admin Dose 5 MG; Start 07/30/18 at 14:30 Gabapentin (Neurontin) 300 mg TID PO Last administered on 08/04/18 08:52; Admin Dose 300 MG; Start 07/30/18 at 23:00 Ertapenem 1 gm/ Sodium Chloride 100 ml @ 200 mls/hr Q24H IVPB Last administered on 08/03/18 14:24; Admin Dose 200 MLS/HR; Start 07/31/18 at 13:00; Stop 08/07/18 at 12:59 Phenazopyridine HCl (Pyridium) 200 mg TID PO Last administered on 08/04/18 08:52; Admin Dose 200 MG; Start 08/02/18 at 13:00 Amlodipine Besylate (Norvasc) 10 mg DAILY PO Last administered on 08/04/18 08:52; Admin Dose 10 MG; Start 08/03/18 at 09:00 Hydromorphone HCl (Dilaudid) 0.5 mg Q6H PRN IV SEVERE PAIN LEVEL 7-10 Last administered on 08/04/18at 03:16; Admin Dose 0.5 MG; Start 08/02/18 at 12:30 Heparin Sodium (Porcine) (Heparin (5000 Units/1ml)) 5,000 unit BID SC ; Start 08/04/18 at 21:00 Morphine Sulfate (Ms Contin (Er)) 15 mg BID PO ; Start 08/04/18 at 13:30 AMI BURTON MD August 04, 2018 13:50
[2018-08-04] MEDS: morphine (ER) 15 MG TAB PO SCH ×2 (13:56→20:47)
[2018-08-04] MEDS: ONDANSETRON 4 MG INJ IV PRN (14:15)
[2018-08-04] MEDS: SOD CHLORIDE 0.9% 1,000 ML IV SCH (14:15)
[2018-08-04] MEDS: ERTAPENEM SODIUM 1 GM in SOD CHLORIDE 0.9% 100 ML IVPB SCH (15:10)
[2018-08-04] MEDS: ACETYLCYSTEINE 600 MG CAP PO SCH ×2 (17:30→23:27)
--- NOTE | 2018-08-04 18:01 | CONS ---
Assessment/Plan Assessment/Plan Assessment/Plan (Daily) 1. Hyponatremia. - Multifactorial due to Diuretic in the setting of CKD . 2. 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 Anemia of CKD II/III 4. Sepsis secondary to urinary tract infection, pyelonephritis 6. H/o Diabetes 7. H/o Dyslipidemia 8. H/o BPH 9. H/o Hypertension 10. H/o Chronic Neurogenic bladder 11. Diffuse pelvic lymphadenopathy with perirectal inguinal lymph nodes 12. acute UTI with Urine cx growing ESBL E coli. Plan: BUN/Cr improved to 01/04.23, Na 133 other electrolytes stable IV abx INvanz for ESBL EColi UTI, Renally dose all abx and monitor electrolytes Amlodipine for BP control Na improved to 133, Continue IVF NS at 75 cc/hr- plan is to give IVF 6 hr pre cath and 6 hr post cath also mucomyst 1200mg pO BID to prevent contrast induced nephropathy Cr improved to 1.23- Ok to have CT with contrast, will do measures to prevent Contrast induced nephropathy and closely monitor Cr will follow up Consultation Date/Type/Reason Admit Date/Time July 30, 2018 at 08:40 Initial Consult Date 08/02/18 Date/Time of Note DATE: 08/04/18 TIME: 18:00 24 HR Interval Summary Free Text/Dictation Na improved to 133, Bp stable , BUN/Cr Exam/Review of Systems Exam Vitals Vital Signs Date Temp Pulse Resp B/P (MAP) Pulse Ox O2 O2 Flow FiO2 Time Delivery Rate 08/04/18 98.3 85 17 144/65 94 Room Air 13:25 (91) Intake and Output 08/03/18 08/03/18 08/04/18 1515:00 23:00 07:00 IntakeIntake Total 100 ml 460 ml BalanceBalance 100 ml 460 ml Results Result Diagram: 08/04/18 0510 08/04/18 0509 Results 24hrs Laboratory Tests Test 08/03/18 20:38 08/04/18 05:09 08/04/18 05:10 08/04/18 08:49 Bedside Glucose 72 131 Sodium Level 133 L Potassium Level 4.3 Chloride Level 100 Carbon Dioxide Level 23 Anion Gap 10 Blood Urea Nitrogen 24 H Creatinine 1.23 Est Glomerular 59 L Filtrat Rate mL/min Glucose Level 115 Calcium Level 8.5 Random Cortisol 9.1 White Blood Count 14.7 H Red Blood Count 3.64 L Hemoglobin 9.0 L Hematocrit 28.0 L Mean Corpuscular 76.9 L Volume Mean Corpuscular 24.7 L Hemoglobin Mean Corpuscular 32.1 Hemoglobin Concent Red Cell 13.8 Distribution Width Platelet Count 494 H Mean Platelet Volume 8.4 Immature 0.500 H Granulocytes % Neutrophils % 72.4 Lymphocytes % 19.7 Monocytes % 5.7 Eosinophils % 1.4 Basophils % 0.3 Nucleated Red Blood 0.0 Cells % Immature 0.080 H Granulocytes # Neutrophils # 10.6 H Lymphocytes # 2.9 Monocytes # 0.8 Eosinophils # 0.2 Basophils # 0.1 Nucleated Red Blood 0.0 Cells # Test 08/04/18 13:41 08/04/18 17:34 Bedside Glucose 244 H 186 Medications Medication Current Medications Aspirin (Halfprin) 81 mg DAILY PO Last administered on 08/04/18 08:52; Admin Dose 81 MG; Start 07/30/18 at 09:00 Atorvastatin Calcium (Lipitor) 80 mg QHS PO Last administered on 08/03/18 20:39; Admin Dose 80 MG; Start 07/29/18 at 21:00 Finasteride (Proscar) 5 mg DAILY PO Last administered on 08/04/18 08:52; Admin Dose 5 MG; Start 07/30/18 at 09:00 Tamsulosin HCl (Flomax) 0.4 mg HS PO Last administered on 08/03/18 20:39; Admin Dose 0.4 MG; Start 07/29/18 at 21:00 IV Flush (NS 3 ml) 3 ml PER PROTOCOL IV ; Start 07/29/18 at 15:30 Ondansetron HCl (Zofran Inj) 4 mg Q6H PRN IV NAUSEA/VOMITING Last administered on 08/04/18 14:15; Admin Dose 4 MG; Start 07/29/18 at 15:30 Acetaminophen (Tylenol Tab) 650 mg Q6H PRN PO .PAIN 1-3 OR TEMP Last administered on 08/03/18 08:20; Admin Dose 650 MG; Start 07/29/18 at 15:30 Diagnostic Test (Pha) (Accu-Chek) 1 ea 02 XX ; Start 07/30/18 at 02:00 Insulin Glargine (Lantus) 10 units DAILY@2000 SC Last administered on 08/01/18 21:03; Admin Dose 10 UNITS; Start 07/29/18 at 20:00 Insulin Aspart (Novolog Insulin Pen) 3 unit WITH MEALS SC Last administered on 08/04/18at 17:38; Admin Dose 3 UNIT; Start 07/29/18 at 18:00 Insulin Aspart (Novolog Insulin Pen) NOVOLOG *MILD* ALGORITHM WITH MEALS BEDTIME SC Last administered on 08/04/18 17:37; Admin Dose 2 UNIT; Start 07/29/18 at 18:00 Miscellaneous Information 1 ea NOTE XX ; Start 07/29/18 at 16:00 Glucose (Glutose) 15 gm Q15M PRN PO DECREASED GLUCOSE; Start 07/29/18 at 16:00 Glucose (Glutose) 22.5 gm Q15M PRN PO DECREASED GLUCOSE; Start 07/29/18 at 16:00 Dextrose (D50w Syringe) 25 ml Q15M PRN IV DECREASED GLUCOSE; Start 07/29/18 at 16:00 Dextrose (D50w Syringe) 50 ml Q15M PRN IV DECREASED GLUCOSE; Start 07/29/18 at 16:00 Glucagon (Glucagen) 1 mg Q15M PRN IM DECREASED GLUCOSE; Start 07/29/18 at 16:00 Glucose (Glutose) 15 gm Q15M PRN BUCCAL DECREASED GLUCOSE; Start 07/29/18 at 16:00 Metoclopramide HCl (Reglan) 5 mg Q6H PRN IV nausea Last administered on 07/30/18at 17:44; Admin Dose 5 MG; Start 07/30/18 at 14:30 Gabapentin (Neurontin) 300 mg TID PO Last administered on 08/04/18 13:56; Admin Dose 300 MG; Start 07/30/18 at 23:00 Ertapenem 1 gm/ Sodium Chloride 100 ml @ 200 mls/hr Q24H IVPB Last adminis tered on 08/04/18at 15:10; Admin Dose 200 MLS/HR; Start 07/31/18 at 13:00; Stop 08/07/18 at 12:59 Phenazopyridine HCl (Pyridium) 200 mg TID PO Last administered on 08/04/18 13:56; Admin Dose 200 MG; Start 08/02/18 at 13:00 Amlodipine Besylate (Norvasc) 10 mg DAILY PO Last administered on 08/04/18 08:52; Admin Dose 10 MG; Start 08/03/18 at 09:00 Hydromorphone HCl (Dilaudid) 0.5 mg Q6H PRN IV SEVERE PAIN LEVEL 7-10 Last administered on 08/04/18 15:19; Admin Dose 0.5 MG; Start 08/02/18 at 12:30 Morphine Sulfate (Ms Contin (Er)) 15 mg BID PO Last administered on 08/04/18at 13:56; Admin Dose 15 MG; Start 08/04/18 at 13:30 Acetylcysteine (Nac) 1,200 mg BID PO Last administered on 08/04/18 17:30; Admin Dose 1,200 MG; Start 08/04/18 at 15:00 Sodium Chloride 1,000 ml @ 75 mls/hr [id number] IV Last administered on 08/04/18 14:15; Admin Dose 75 MLS/HR; Start 08/04/18 at 14:00 TALITA DICKENS MD August 04, 2018 18:00
[2018-08-04 19:59] VITALS: BP 134/60; PULSE 88; RESP 16
[2018-08-04] MEDS: ATORVASTATIN 80 MG TAB PO SCH (20:46)
[2018-08-04] MEDS: TAMSULOSIN (SR) 0.4 MG CAP PO SCH (20:46)
[2018-08-04] MEDS: INSULIN GLARGINE [LANTus] (100 UNITS/ML) SYG SC SCH (20:50)
[2018-08-04] MEDS ORDERED: HEPARIN 5,000 UNIT/1 ML VIAL SC SCH (21:00)
[2018-08-04] MEDS ORDERED: SOD CHLORIDE 0.9% 100 ML ONE (22:08)
[2018-08-04] MEDS ORDERED: IODIXANOL LOCM 100 ML BTL ONE (22:08)
[2018-08-05] MEDS: ACCU-CHEK XX SCH (02:00)
[2018-08-05 02:28] VITALS: BP 153/72; PULSE 88; RESP 16
[2018-08-05] MEDS ORDERED: AL HYDROX/MG HYDROX/SIMETH 30 ML CUP PO PRN (03:00)
[2018-08-05] MEDS: SOD CHLORIDE 0.9% 1,000 ML IV SCH ×2 (06:28→17:28)
[2018-08-05 08:29] VITALS: BP 122/63; RESP 20
[2018-08-05] MEDS: morphine (ER) 15 MG TAB PO SCH ×3 (09:00→20:58)
[2018-08-05] MEDS: INSULIN ASPART [NOVOLOG] 3 ML PEN SC SCH ×7 (09:04→21:00)
[2018-08-05] MEDS: PHENAZOPYRIDINE 200 MG TAB PO SCH ×3 (09:05→20:47)
[2018-08-05] MEDS: GABAPENTIN 300 MG CAP PO SCH ×3 (09:05→20:48)
[2018-08-05] MEDS: ASPIRIN (EC) 81 MG TAB PO SCH (09:05)
[2018-08-05] MEDS: FINASTERIDE 5 MG TAB PO SCH (09:05)
[2018-08-05] MEDS: ACETYLCYSTEINE 600 MG CAP PO SCH ×2 (09:05→20:48)
[2018-08-05] MEDS: AMLODIPINE 10 MG TAB PO SCH (09:09)
[2018-08-05] MEDS: HYDROmorphONE 0.5 MG/0.5 ML SYG IV PRN ×2 (09:42→17:40)
[2018-08-05] MEDS: ERTAPENEM SODIUM 1 GM in SOD CHLORIDE 0.9% 100 ML IVPB SCH (13:06)
--- NOTE | 2018-08-05 13:24 | CONS ---
Assessment/Plan Assessment/Plan Hospital Course (Demo Recall) No acute changes CT abdomen and pelvis revealed slightly increased the size of the subcapsular fluid collection. Interval increase in the low to intermediate density perinephric fluid collection posterior and inferior to the right kidney. Presence of foci of air within the perinephric fluid collection with consideration of developing abscess. Please see full report in the chart Antimicrobials: Invanz Microbiology: Urine culture on admission grew E. coli ESBL Physical examination: Well-developed elderly man who is in no distress. Head atraumatic normocephalic neck is supple chest rise symmetrical breath sounds diminished bases. Heart: S1-S2 abdomen soft bowel sounds present Assessment: 1. E. coli ESBL UTI 2. BPH 3. Diabetes 4. Anemia 5. Subacute right subcapsular hematoma with mild left hydronephrosis ?abscess Plan: Patient remains stable, repeat CT abdomen noted, continue abx, f/u urology rec-s Consultation Date/Type/Reason Admit Date/Time July 30, 2018 at 08:40 Initial Consult Date 08/02/18 Type of Consult id Requesting Provider: SIMONE EDDY Date/Time of Note DATE: 08/05/18 TIME: 13:23 Exam/Review of Systems Exam Vitals Vital Signs Date Temp Pulse Resp B/P (MAP) Pulse Ox O2 O2 Flow FiO2 Time Delivery Rate 08/05/18 98.7 20 122/63 93 08:29 (82) 08/05/18 88 02:28 08/04/18 Room Air 13:25 Intake and Output 08/04/18 08/04/18 08/05/18 1515:00 23:00 07:00 IntakeIntake Total 240 ml 395 ml 825 ml BalanceBalance 240 ml 395 ml 825 ml Results Result Diagram: 08/05/18 0507 08/05/18 0506 Results 24hrs Laboratory Tests Test 08/04/18 13:41 08/04/18 17:34 08/04/18 18:50 08/04/18 20:48 Bedside Glucose 244 H 186 148 Urine Osmolality 335 Test 08/05/18 05:06 08/05/18 05:07 08/05/18 08:44 08/05/18 12:28 Sodium Level 134 L Potassium Level 4.5 Chloride Level 103 Carbon Dioxide Level 22 Anion Gap 9 Blood Urea Nitrogen 22 H Creatinine 1.23 Est Glomerular 59 L Filtrat Rate mL/min Glucose Level 156 Calcium Level 8.5 Phosphorus Level 3.7 Magnesium Level 1.9 White Blood Count 14.6 H Red Blood Count 3.63 L Hemoglobin 9.0 L Hematocrit 28.3 L Mean Corpuscular 78.0 L Volume Mean Corpuscular 24.8 L Hemoglobin Mean Corpuscular 31.8 L Hemoglobin Concent Red Cell 14.1 Distribution Width Platelet Count 478 H Mean Platelet Volume 8.6 Immature 0.500 H Granulocytes % Neutrophils % 71.5 Lymphocytes % 20.5 Monocytes % 6.0 Eosinophils % 1.2 Basophils % 0.3 Nucleated Red Blood 0.0 Cells % Immature 0.080 H Granulocytes # Neutrophils # 10.4 H Lymphocytes # 3.0 H Monocytes # 0.9 Eosinophils # 0.2 Basophils # 0.0 Nucleated Red Blood 0.0 Cells # Bedside Glucose 179 171 Medications Medication Current Medications Aspirin (Halfprin) 81 mg DAILY PO Last administered on 08/05/18 09:05; Admin Dose 81 MG; Start 07/30/18 at 09:00 Atorvastatin Calcium (Lipitor) 80 mg QHS PO Last administered on 08/04/18 20:46; Admin Dose 80 MG; Start 07/29/18 at 21:00 Finasteride (Proscar) 5 mg DAILY PO Last administered on 08/05/18 09:05; Admin Dose 5 MG; Start 07/30/18 at 09:00 Tamsulosin HCl (Flomax) 0.4 mg HS PO Last administered on 08/04/18 20:46; Admin Dose 0.4 MG; Start 07/29/18 at 21:00 IV Flush (NS 3 ml) 3 ml PER PROTOCOL IV ; Start 07/29/18 at 15:30 Ondansetron HCl (Zofran Inj) 4 mg Q6H PRN IV NAUSEA/VOMITING Last administered on 08/04/18 14:15; Admin Dose 4 MG; Start 07/29/18 at 15:30 Acetaminophen (Tylenol Tab) 650 mg Q6H PRN PO .PAIN 1-3 OR TEMP Last administered on 08/03/18 08:20; Admin Dose 650 MG; Start 07/29/18 at 15:30 Diagnostic Test (Pha) (Accu-Chek) 1 ea 02 XX ; Start 07/30/18 at 02:00 Insulin Glargine (Lantus) 10 units DAILY@2000 SC Last administered on 08/04/18 20:50; Admin Dose 10 UNITS; Start 07/29/18 at 20:00 Insulin Aspart (Novolog Insulin Pen) 3 unit WITH MEALS SC Last administered on 08/05/18 13:06; Admin Dose 3 UNIT; Start 07/29/18 at 18:00 Insulin Aspart (Novolog Insulin Pen) NOVOLOG *MILD* ALGORITHM WITH MEALS BEDTIME SC Last administered on 08/05/18 13:05; Admin Dose 1 UNIT; Start 07/29/18 at 18:00 Miscellaneous Information 1 ea NOTE XX ; Start 07/29/18 at 16:00 Glucose (Glutose) 15 gm Q15M PRN PO DECREASED GLUCOSE; Start 07/29/18 at 16:00 Glucose (Glutose) 22.5 gm Q15M PRN PO DECREASED GLUCOSE; Start 07/29/18 at 16:00 Dextrose (D50w Syringe) 25 ml Q15M PRN IV DECREASED GLUCOSE; Start 07/29/18 at 16:00 Dextrose (D50w Syringe) 50 ml Q15M PRN IV DECREASED GLUCOSE; Start 07/29/18 at 16:00 Glucagon (Glucagen) 1 mg Q15M PRN IM DECREASED GLUCOSE; Start 07/29/18 at 16:00 Glucose (Glutose) 15 gm Q15M PRN BUCCAL DECREASED GLUCOSE; Start 07/29/18 at 16:00 Metoclopramide HCl (Reglan) 5 mg Q6H PRN IV nausea Last administered on 07/30/18at 17:44; Admin Dose 5 MG; Start 07/30/18 at 14:30 Gabapentin (Neurontin) 300 mg TID PO Last administered on 08/05/18 13:07; Admin Dose 300 MG; Start 07/30/18 at 23:00 Ertapenem 1 gm/ Sodium Chloride 100 ml @ 200 mls/hr Q24H IVPB Last administered on 08/05/18 13:06; Admin Dose 200 MLS/HR; Start 07/31/18 at 13:00; Stop 08/07/18 at 12:59 Phenazopyridine HCl (Pyridium) 200 mg TID PO Last administered on 08/05/18 13:07; Admin Dose 200 MG; Start 08/02/18 at 13:00 Amlodipine Besylate (Norvasc) 10 mg DAILY PO Last administered on 08/05/18 09:09; Admin Dose 10 MG; Start 08/03/18 at 09:00 Hydromorphone HCl (Dilaudid) 0.5 mg Q6H PRN IV SEVERE PAIN LEVEL 7-10 Last administered on 08/05/18 09:42; Admin Dose 0.5 MG; Start 08/02/18 at 12:30 Morphine Sulfate (Ms Contin (Er)) 15 mg BID PO Last administered on 08/04/18at 20:47; Admin Dose 15 MG; Start 08/04/18 at 13:30 Acetylcysteine (Nac) 1,200 mg BID PO Last administered on 08/05/18 09:05; Admin Dose 1,200 MG; Start 08/04/18 at 15:00 Sodium Chloride 1,000 ml @ 75 mls/hr [id number] IV Last administered on 08/05/18 06:28; Admin Dose 75 MLS/HR; Start 08/04/18 at 14:00 Al Hydrox/Mg Hydrox/Simethicone (Mag-Al Plus) 30 ml Q4H PRN PO GASTROINTESTINAL UPSET Last administered on 08/05/18 03:02; Admin Dose 30 ML; Start 08/05/18 at 03:00 BELL WEEMS NP August 05, 2018 13:24
--- NOTE | 2018-08-05 13:58 | PN ---
Date/Time of Note Date/Time of Note DATE: 08/05/18 TIME: 13:57 Assessment/Plan VTE Prophylaxis Risk score (from Ns)>0 risk: 2 SCD applied (from Ns): Yes Pharmacological prophylaxis: other (scds) Lines/Catheters [facility] Mid [facility] Urinary Cath still in place: No Assessment/Plan Hospital Course Summary Assessment and Plan: Assessment: Abnormal CT showing -Several perirectal lymph nodes subtle thinking of the clark of the rectum . R/o rectal malignancy Colonoscopy 08/03/2018 Severely deformed anal area related to previous surgical intervention. Normal colonic mucosa. Random biopsies obtained in the area of the rectum Bx: Rectal mucosa with no significant histopathological features.No proctitis is identified. Acute kidney injury. Diabetes, poorly controlled High cholesterol History of BPH Hypertension Plan: Advance diet as tolerated Pathology reviewed- no malignancy noted GI will sign off but will be available upon reconsult as needed Patient seen in collaboration with Dr. Hernandez Subjective: Course reviewed with nursing staff Patient interviewed and examined All labs, imaging and other results reviewed The patient resting in bed, no over night events discussed results of colonoscopy pt verbalized understanding. PHYSICAL EXAMINATION: GENERAL: Alert & oriented x 3, in no acute distress SKIN: No lesions LYMPHATIC: No palpable lymphadenopathy. HEAD: Normocephalic, atraumatic, no tenderness. EYES: Pupils equal reactive to light and accommodation, no discharge. EARS/NOSE AND THROAT: Ears normal, nose normal. NECK: Supple, no masses. CHEST: Inspection within normal limits. CARDIOVASCULAR: Heart: Regular rate and rhythm RESPIRATORY: Lungs clear to auscultation GASTROINTESTINAL AND LIVER: Abdomen: Soft, non tenderness, non-distended, no hernias, no masses, no organomegaly, no ascites, no guarding, no rebound t enderness, normoactive bowel sounds. Rectal: Deferred. EXTREMITIES: No cyanosis, clubbing or edema Result Diagram: 08/05/18 0507 08/05/18 0506 Results 24hrs Laboratory Tests Test 08/04/18 17:34 08/04/18 18:50 08/04/18 20:48 08/05/18 05:06 Bedside Glucose 186 148 Urine Osmolality 335 Sodium Level 134 L Potassium Level 4.5 Chloride Level 103 Carbon Dioxide Level 22 Anion Gap 9 Blood Urea Nitrogen 22 H Creatinine 1.23 Est Glomerular 59 L Filtrat Rate mL/min Glucose Level 156 Calcium Level 8.5 Phosphorus Level 3.7 Magnesium Level 1.9 Test 08/05/18 05:07 08/05/18 08:44 08/05/18 12:28 White Blood Count 14.6 H Red Blood Count 3.63 L Hemoglobin 9.0 L Hematocrit 28.3 L Mean Corpuscular 78.0 L Volume Mean Corpuscular 24.8 L Hemoglobin Mean Corpuscular 31.8 L Hemoglobin Concent Red Cell 14.1 Distribution Width Platelet Count 478 H Mean Platelet Volume 8.6 Immature 0.500 H Granulocytes % Neutrophils % 71.5 Lymphocytes % 20.5 Monocytes % 6.0 Eosinophils % 1.2 Basophils % 0.3 Nucleated Red Blood 0.0 Cells % Immature 0.080 H Granulocytes # Neutrophils # 10.4 H Lymphocytes # 3.0 H Monocytes # 0.9 Eosinophils # 0.2 Basophils # 0.0 Nucleated Red Blood 0.0 Cells # Bedside Glucose 179 171 Exam/Review of Systems Exam Vitals Vital Signs Date Temp Pulse Resp B/P (MAP) Pulse Ox O2 O2 Flow FiO2 Time Delivery Rate 08/05/18 98.7 20 122/63 93 08:29 (82) 08/05/18 88 02:28 08/04/18 Room Air 13:25 Intake and Output 08/04/18 08/04/18 08/05/18 1515:00 23:00 07:00 IntakeIntake Total 240 ml 395 ml 825 ml BalanceBalance 240 ml 395 ml 825 ml Results Results 24hrs Laboratory Tests Test 08/04/18 17:34 08/04/18 18:50 08/04/18 20:48 08/05/18 05:06 Bedside Glucose 186 148 Urine Osmolality 335 Sodium Level 134 L Potassium Level 4.5 Chloride Level 103 Carbon Dioxide Level 22 Anion Gap 9 Blood Urea Nitrogen 22 H Creatinine 1.23 Est Glomerular 59 L Filtrat Rate mL/min Glucose Level 156 Calcium Level 8.5 Phosphorus Level 3.7 Magnesium Level 1.9 Test 08/05/18 05:07 08/05/18 08:44 08/05/18 12:28 White Blood Count 14.6 H Red Blood Count 3.63 L Hemoglobin 9.0 L Hematocrit 28.3 L Mean Corpuscular 78.0 L Volume Mean Corpuscular 24.8 L Hemoglobin Mean Corpuscular 31.8 L Hemoglobin Concent Red Cell 14.1 Distribution Width Platelet Count 478 H Mean Platelet Volume 8.6 Immature 0.500 H Granulocytes % Neutrophils % 71.5 Lymphocytes % 20.5 Monocytes % 6.0 Eosinophils % 1.2 Basophils % 0.3 Nucleated Red Blood 0.0 Cells % Immature 0.080 H Granulocytes # Neutrophils # 10.4 H Lymphocytes # 3.0 H Monocytes # 0.9 Eosinophils # 0.2 Basophils # 0.0 Nucleated Red Blood 0.0 Cells # Bedside Glucose 179 171 Medications Medication Current Medications Aspirin (Halfprin) 81 mg DAILY PO Last administered on 08/05/18 09:05; Admin Dose 81 MG; Start 07/30/18 at 09:00 Atorvastatin Calcium (Lipitor) 80 mg QHS PO Last administered on 08/04/18 20:46; Admin Dose 80 MG; Start 07/29/18 at 21:00 Finasteride (Proscar) 5 mg DAILY PO Last administered on 08/05/18 09:05; Admin Dose 5 MG; Start 07/30/18 at 09:00 Tamsulosin HCl (Flomax) 0.4 mg HS PO Last administered on 08/04/18 20:46; Admin Dose 0.4 MG; Start 07/29/18 at 21:00 IV Flush (NS 3 ml) 3 ml PER PROTOCOL IV ; Start 07/29/18 at 15:30 Ondansetron HCl (Zofran Inj) 4 mg Q6H PRN IV NAUSEA/VOMITING Last administered on 08/04/18 14:15; Admin Dose 4 MG; Start 07/29/18 at 15:30 Acetaminophen (Tylenol Tab) 650 mg Q6H PRN PO .PAIN 1-3 OR TEMP Last ad ministered on 08/03/18 08:20; Admin Dose 650 MG; Start 07/29/18 at 15:30 Diagnostic Test (Pha) (Accu-Chek) 1 ea 02 XX ; Start 07/30/18 at 02:00 Insulin Glargine (Lantus) 10 units DAILY@2000 SC Last administered on 08/04/18 20:50; Admin Dose 10 UNITS; Start 07/29/18 at 20:00 Insulin Aspart (Novolog Insulin Pen) 3 unit WITH MEALS SC Last administered on 08/05/18 13:06; Admin Dose 3 UNIT; Start 07/29/18 at 18:00 Insulin Aspart (Novolog Insulin Pen) NOVOLOG *MILD* ALGORITHM WITH MEALS BEDTIME SC Last administered on 08/05/18 13:05; Admin Dose 1 UNIT; Start 07/29/18 at 18:00 Miscellaneous Information 1 ea NOTE XX ; Start 07/29/18 at 16:00 Glucose (Glutose) 15 gm Q15M PRN PO DECREASED GLUCOSE; Start 07/29/18 at 16:00 Glucose (Glutose) 22.5 gm Q15M PRN PO DECREASED GLUCOSE; Start 07/29/18 at 16:00 Dextrose (D50w Syringe) 25 ml Q15M PRN IV DECREASED GLUCOSE; Start 07/29/18 at 16:00 Dextrose (D50w Syringe) 50 ml Q15M PRN IV DECREASED GLUCOSE; Start 07/29/18 at 16:00 Glucagon (Glucagen) 1 mg Q15M PRN IM DECREASED GLUCOSE; Start 07/29/18 at 16:00 Glucose (Glutose) 15 gm Q15M PRN BUCCAL DECREASED GLUCOSE; Start 07/29/18 at 16:00 Metoclopramide HCl (Reglan) 5 mg Q6H PRN IV nausea Last administered on 07/30/18at 17:44; Admin Dose 5 MG; Start 07/30/18 at 14:30 Gabapentin (Neurontin) 300 mg TID PO Last administered on 08/05/18 13:07; Admin Dose 300 MG; Start 07/30/18 at 23:00 Ertapenem 1 gm/ Sodium Chloride 100 ml @ 200 mls/hr Q24H IVPB Last administered on 08/05/18 13:06; Admin Dose 200 MLS/HR; Start 07/31/18 at 13:00; Stop 08/07/18 at 12:59 Phenazopyridine HCl (Pyridium) 200 mg TID PO Last administered on 08/05/18 13:07; Admin Dose 200 MG; Start 08/02/18 at 13:00 Amlodipine Besylate (Norvasc) 10 mg DAILY PO Last administered on 08/05/18 09:09; Admin Dose 10 MG; Start 08/03/18 at 09:00 Hydromorphone HCl (Dilaudid) 0.5 mg Q6H PRN IV SEVERE PAIN LEVEL 7-10 Last administered on 08/05/18 09:42; Admin Dose 0.5 MG; Start 08/02/18 at 12:30 Morphine Sulfate (Ms Contin (Er)) 15 mg BID PO Last administered on 08/04/18at 20:47; Admin Dose 15 MG; Start 08/04/18 at 13:30 Acetylcysteine (Nac) 1,200 mg BID PO Last administered on 08/05/18 09:05; Admin Dose 1,200 MG; Start 08/04/18 at 15:00 Sodium Chloride 1,000 ml @ 75 mls/hr [id number] IV Last administered on 08/05/18 06:28; Admin Dose 75 MLS/HR; Start 08/04/18 at 14:00 Al Hydrox/Mg Hydrox/Simethicone (Mag-Al Plus) 30 ml Q4H PRN PO GASTROINTESTINAL UPSET Last administered on 08/05/18 03:02; Admin Dose 30 ML; Start 08/05/18 at 03:00 ANNA WASHINGTON August 05, 2018 13:58
--- NOTE | 2018-08-05 14:38 | CONS ---
Assessment/Plan Assessment/Plan Assessment/Plan (Daily) 1. Hyponatremia. - Multifactorial due to Diuretic in the setting of CKD . 2. 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 Anemia of CKD II/III 4. Sepsis secondary to urinary tract infection, pyelonephritis 6. H/o Diabetes 7. H/o Dyslipidemia 8. H/o BPH 9. H/o Hypertension 10. H/o Chronic Neurogenic bladder 11. Diffuse pelvic lymphadenopathy with perirectal inguinal lymph nodes 12. acute UTI with Urine cx growing ESBL E coli. Plan: BUN/Cr improved to 24/1.23, Na 133 other electrolytes stable IV abx INvanz for ESBL EColi UTI, Renally dose all abx and monitor electrolytes Amlodipine for BP control Na improved to 133, Continue IVF NS at 75 cc/hr- plan is to give IVF 6 hr pre cath and 6 hr post cath also mucomyst 1200mg pO BID to prevent contrast induced nephropathy Cr improved to 1.23- Ok to have CT with contrast, will do measures to prevent Contrast induced nephropathy and closely monitor Cr will follow up Consultation Date/Type/Reason Admit Date/Time July 30, 2018 at 08:40 Initial Consult Date 08/02/18 Requesting Provider: SIMONE EDDY Date/Time of Note DATE: 08/05/18 TIME: 14:38 Exam/Review of Systems Exam Vitals Vital Signs Date Temp Pulse Resp B/P (MAP) Pulse Ox O2 O2 Flow FiO2 Time Delivery Rate 08/05/18 98.7 20 122/63 93 08:29 (82) 08/05/18 88 02:28 08/04/18 Room Air 13:25 Intake and Output 08/04/18 08/04/18 08/05/18 1515:00 23:00 07:00 IntakeIntake Total 240 ml 395 ml 825 ml BalanceBalance 240 ml 395 ml 825 ml Constitutional: alert Psych: no complaints Head: normocephalic ENMT: nl external ears & nose Neck: supple, non-tender Respiratory: diminished breath sounds Cardiovascular: regular rate and rhythm Gastrointestinal: soft Musculoskeletal: nl extremities to inspection Neurological: [employer] II-XII intact, nl mental status, nl speech Lymph: nl lymph nodes Results Result Diagram: 08/05/18 0507 08/05/18 0506 Results 24hrs Laboratory Tests Test 08/04/18 17:34 08/04/18 18:50 08/04/18 20:48 08/05/18 05:06 Bedside Glucose 186 148 Urine Osmolality 335 Sodium Level 134 L Potassium Level 4.5 Chloride Level 103 Carbon Dioxide Level 22 Anion Gap 9 Blood Urea Nitrogen 22 H Creatinine 1.23 Est Glomerular 59 L Filtrat Rate mL/min Glucose Level 156 Calcium Level 8.5 Phosphorus Level 3.7 Magnesium Level 1.9 Test 08/05/18 05:07 08/05/18 08:44 08/05/18 12:28 White Blood Count 14.6 H Red Blood Count 3.63 L Hemoglobin 9.0 L Hematocrit 28.3 L Mean Corpuscular 78.0 L Volume Mean Corpuscular 24.8 L Hemoglobin Mean Corpuscular 31.8 L Hemoglobin Concent Red Cell 14.1 Distribution Width Platelet Count 478 H Mean Platelet Volume 8.6 Immature 0.500 H Granulocytes % Neutrophils % 71.5 Lymphocytes % 20.5 Monocytes % 6.0 Eosinophils % 1.2 Basophils % 0.3 Nucleated Red Blood 0.0 Cells % Immature 0.080 H Granulocytes # Neutrophils # 10.4 H Lymphocytes # 3.0 H Monocytes # 0.9 Eosinophils # 0.2 Basophils # 0.0 Nucleated Red Blood 0.0 Cells # Bedside Glucose 179 171 Medications Medication Current Medications Aspirin (Halfprin) 81 mg DAILY PO Last administered on 08/05/18 09:05; Admin Dose 81 MG; Start 07/30/18 at 09:00 Atorvastatin Calcium (Lipitor) 80 mg QHS PO Last administered on 08/04/18 20:46; Admin Dose 80 MG; Start 07/29/18 at 21:00 Finasteride (Proscar) 5 mg DAILY PO Last administered on 08/05/18 09:05; Admin Dose 5 MG; Start 07/30/18 at 09:00 Tamsulosin HCl (Flomax) 0.4 mg HS PO Last administered on 08/04/18 20:46; Admin Dose 0.4 MG; Start 07/29/18 at 21:00 IV Flush (NS 3 ml) 3 ml PER PROTOCOL IV ; Start 07/29/18 at 15:30 Ondansetron HCl (Zofran Inj) 4 mg Q6H PRN IV NAUSEA/VOMITING Last administered on 08/04/18 14:15; Admin Dose 4 MG; Start 07/29/18 at 15:30 Acetaminophen (Tylenol Tab) 650 mg Q6H PRN PO .PAIN 1-3 OR TEMP Last administered on 08/03/18 08:20; Admin Dose 650 MG; Start 07/29/18 at 15:30 Diagnostic Test (Pha) (Accu-Chek) 1 ea 02 XX ; Start 07/30/18 at 02:00 Insulin Glargine (Lantus) 10 units DAILY@2000 SC Last administered on 08/04/18at 20:50; Admin Dose 10 UNITS; Start 07/29/18 at 20:00 Insulin Aspart (Novolog Insulin Pen) 3 unit WITH MEALS SC Last administered on 08/05/18 13:06; Admin Dose 3 UNIT; Start 07/29/18 at 18:00 Insulin Aspart (Novolog Insulin Pen) NOVOLOG *MILD* ALGORITHM WITH MEALS BEDTIME SC Last administered on 08/05/18 13:05; Admin Dose 1 UNIT; Start 07/29/18 at 18:00 Miscellaneous Information 1 ea NOTE XX ; Start 07/29/18 at 16:00 Glucose (Glutose) 15 gm Q15M PRN PO DECREASED GLUCOSE; Start 07/29/18 at 16:00 Glucose (Glutose) 22.5 gm Q15M PRN PO DECREASED GLUCOSE; Start 07/29/18 at 16:00 Dextrose (D50w Syringe) 25 ml Q15M PRN IV DECREASED GLUCOSE; Start 07/29/18 at 16:00 Dextrose (D50w Syringe) 50 ml Q15M PRN IV DECREASED GLUCOSE; Start 07/29/18 at 16:00 Glucagon (Glucagen) 1 mg Q15M PRN IM DECREASED GLUCOSE; Start 07/29/18 at 16:00 Glucose (Glutose) 15 gm Q15M PRN BUCCAL DECREASED GLUCOSE; Start 07/29/18 at 16:00 Metoclopramide HCl (Reglan) 5 mg Q6H PRN IV nausea Last administered on 07/30/18at 17:44; Admin Dose 5 MG; Start 07/30/18 at 14:30 Gabapentin (Neurontin) 300 mg TID PO Last administered on 08/05/18at 13:07; Admin Dose 300 MG; Start 07/30/18 at 23:00 Ertapenem 1 gm/ Sodium Chloride 100 ml @ 200 mls/hr Q24H IVPB Last administered on 08/05/18 13:06; Admin Dose 200 MLS/HR; Start 07/31/18 at 13:00; Stop 08/07/18 at 12:59 Phenazopyridine HCl (Pyridium) 200 mg TID PO Last administered on 08/05/18 13:07; Admin Dose 200 MG; Start 08/02/18 at 13:00 Amlodipine Besylate (Norvasc) 10 mg DAILY PO Last administered on 08/05/18 09:09; Admin Dose 10 MG; Start 08/03/18 at 09:00 Hydromorphone HCl (Dilaudid) 0.5 mg Q6H PRN IV SEVERE PAIN LEVEL 7-10 Last administered on 08/05/18 09:42; Admin Dose 0.5 MG; Start 08/02/18 at 12:30 Morphine Sulfate (Ms Contin (Er)) 15 mg BID PO Last administered on 08/04/18 20:47; Admin Dose 15 MG; Start 08/04/18 at 13:30 Acetylcysteine (Nac) 1,200 mg BID PO Last administered on 08/05/18 09:05; Admin Dose 1,200 MG; Start 08/04/18 at 15:00 Sodium Chloride 1,000 ml @ 75 mls/hr [id number] IV Last administered on 08/05/18 06:28; Admin Dose 75 MLS/HR; Start 08/04/18 at 14:00 Al Hydrox/Mg Hydrox/Simethicone (Mag-Al Plus) 30 ml Q4H PRN PO GASTROINTESTINAL UPSET Last administered on 08/05/18 03:02; Admin Dose 30 ML; Start 08/05/18 at 03:00 TALITA DICKENS MD August 05, 2018 14:38
[2018-08-05 14:53] VITALS: BP 134/63; PULSE 92; RESP 18
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
[2018-08-05 19:47] VITALS: BP 144/67; PULSE 99; RESP 16
[2018-08-05] MEDS: ATORVASTATIN 80 MG TAB PO SCH (20:47)
[2018-08-05] MEDS: TAMSULOSIN (SR) 0.4 MG CAP PO SCH (20:50)
--- NOTE | 2018-08-05 21:01 | CONS ---
Consult Date/Type/Reason Admit Date/Time July 30, 2018 at 08:40 Initial Consult Date 08/04/18 Type of Consultation: Urology Reason for Consultation Right renal subcapsular hematoma and perirenal abscess Requesting Provider: SIMONE EDDY Date/Time of Note DATE: 08/05/18 TIME: 20:56 Subjective Patient appears to be comfortable. He does have suprapubic fullness and tenderness. His bladder is very distended. Objective Vitals Vital Signs Date Temp Pulse Resp B/P (MAP) Pulse Ox O2 O2 Flow FiO2 Time Delivery Rate 08/05/18 99.6 99 16 144/67 94 19:47 (92) 08/04/18 Room Air 13:25 Intake and Output 08/04/18 08/04/18 08/05/18 1515:00 23:00 07:00 IntakeIntake Total 240 ml 395 ml 825 ml BalanceBalance 240 ml 395 ml 825 ml Exam The bladder is distended. CT scan of the abdomen and pelvis with IV contrast showed: Urinary: Stable subcapsular fluid collection with heterogeneous hyperdensity at the posterior right kidney measuring 8.6 x 6.7 x 11.2 cm, better characterized on this exam with IV contrast, but unchanged in size in comparison to prior exam. There is stable extension of the fluid into the pararenal space with multiloculated fluid and scattered small foci of air; the largest component m easures approximately 7.6 x 3.4 cm. Stable extension along the anterior Gerota's fascia and pericolic gutter with peripheral enhancement; the largest component along the pericolic gutter measures approximately 4.1 x 2.5 cm. Increased mild fullness/hydronephrosis of the left renal collecting system and dilation of the left ureter. Interval increased distension of the bladder, again seen with mild irregular wall thickening. Results/Medications Result Diagram: 08/05/18 0507 08/05/18 0506 Results 24 hrs Laboratory Tests Test 08/05/18 05:06 08/05/18 05:07 08/05/18 08:44 08/05/18 12:28 Sodium Level 134 L Potassium Level 4.5 Chloride Level 103 Carbon Dioxide Level 22 Anion Gap 9 Blood Urea Nitrogen 22 H Creatinine 1.23 Est Glomerular 59 L Filtrat Rate mL/min Glucose Level 156 Calcium Level 8.5 Phosphorus Level 3.7 Magnesium Level 1.9 White Blood Count 14.6 H Red Blood Count 3.63 L Hemoglobin 9.0 L Hematocrit 28.3 L Mean Corpuscular 78.0 L Volume Mean Corpuscular 24.8 L Hemoglobin Mean Corpuscular 31.8 L Hemoglobin Concent Red Cell 14.1 Distribution Width Platelet Count 478 H Mean Platelet Volume 8.6 Immature 0.500 H Granulocytes % Neutrophils % 71.5 Lymphocytes % 20.5 Monocytes % 6.0 Eosinophils % 1.2 Basophils % 0.3 Nucleated Red Blood 0.0 Cells % Immature 0.080 H Granulocytes # Neutrophils # 10.4 H Lymphocytes # 3.0 H Monocytes # 0.9 Eosinophils # 0.2 Basophils # 0.0 Nucleated Red Blood 0.0 Cells # Bedside Glucose 179 171 Test 08/05/18 17:29 Bedside Glucose 188 Home Meds Reported Medications Mirtazapine* (Remeron*) Unknown Strength Tablet, 1 TAB PO HS, TAB 07/29/18 Tamsulosin Hcl* (Flomax*) 0.4 Mg Cap.er.24h, 0.4 MG PO HS, CAP 07/29/18 Atorvastatin* (Atorvastatin*) 80 Mg Tablet, 80 MG PO QHS, #30 TAB 07/29/18 Gabapentin* (Gabapentin*) 300 Mg Capsule, 300 MG PO DAILY, #60 CAP 07/29/18 Finasteride* (Finasteride*) 5 Mg Tablet, 5 MG PO DAILY, TAB 07/29/18 Aspirin* (Aspirin* EC) 81 Mg Tablet.dr, 81 MG PO DAILY, TAB 07/29/18 Lisinopril/Hydrochlorothiazide (Lisinopril-Hctz 20-12.5 mg Tab) 1 Each Tablet, 1 EACH PO BID, TAB 07/29/18 Discontinued Reported Medications Nitroglycerin* (Nitroglycerin* SL) 0.4 Mg Tab.subl, 0.4 MG SL Q5MIN PRN for CHEST PAIN, BOTTLE 01/03/14 Discontinued Scripts Nitrofurantoin Monohyd Macrocr* (Macrobid*) 100 Mg Capsr, 100 MG PO BID for 14 Days, CAP Prov:IVAN MILIAN DO 07/24/18 Tamsulosin Hcl* (Tamsulosin Hcl*) 0.4 Mg Cap.er.24h, 0.4 MG PO HS, #60 CAP Prov:CORWIN EMANUEL 03/27/18 Finasteride* (Proscar*) 5 Mg Tablet, 5 MG PO DAILY, #60 TAB Prov:CORWIN EMANUEL 03/27/18 Amlodipine Besylate* (Amlodipine Besylate*) 2.5 Mg Tablet, 2.5 MG PO DAILY, #30 TAB Prov:CARLINE YOUNG V. BENEFITS ADVISOR 01/21/18 Insulin Aspart* (Novolog Insulin Pen*) 100 Unit/Ml Soln, 5 UNIT SC WITH MEALS for 30 Days, #30 DOSE Prov:YOUNGCARLINE V. BENEFITS ADVISOR 01/21/18 [place]-3/Dha/Epa/Fish Oil (FISH OIL EC 1,000 MG SOFTGEL) 1 Each Capsule.dr, 1000 MG PO BID, #30 CAP Prov:LANDON WAGGONER NP 06/07/17 Insulin Glargine* (Lantus*) 100 Unit/Ml Soln, 45 UNIT SC DAILY@08 for 30 Days Prov:LANDON WAGGONER NP 06/07/17 Atorvastatin (Atorvastatin) 10 Mg Tablet, 20 MG PO HS, #30 TAB Prov:LANDON WAGGONER NP 06/07/17 Hydralazine Hcl* (Hydralazine Hcl*) 25 Mg Tab, 25 MG PO TID for 30 Days, #30 TAB 2 Refills Prov:LANDON WAGGONER NP 06/07/17 Gabapentin* (Neurontin*) 300 Mg Capsule, 300 MG PO DAILY, #30 CAP Prov:LANDON WAGGONER NP 06/07/17 Loratadine* (Claritin*) 10 Mg Capsule, 10 MG PO DAILY for 10 Days, CAP Prov:SHITAL LEACH 12/08/16 Medications Current Medications Aspirin (Halfprin) 81 mg DAILY PO Last administered on 08/05/18at 09:05; Admin Dose 81 MG; Start 07/30/18 at 09:00 Atorvastatin Calcium (Lipitor) 80 mg QHS PO Last administered on 08/04/18at 20:46; Admin Dose 80 MG; Start 07/29/18 at 21:00 Finasteride (Proscar) 5 mg DAILY PO Last administered on 08/05/18at 09:05; Admin Dose 5 MG; Start 07/30/18 at 09:00 Tamsulosin HCl (Flomax) 0.4 mg HS PO Last administered on 08/04/18at 20:46; Admin Dose 0.4 MG; Start 07/29/18 at 21:00 IV Flush (NS 3 ml) 3 ml PER PROTOCOL IV ; Start 07/29/18 at 15:30 Ondansetron HCl (Zofran Inj) 4 mg Q6H PRN IV NAUSEA/VOMITING Last administered on 08/04/18at 14:15; Admin Dose 4 MG; Start 07/29/18 at 15:30 Acetaminophen (Tylenol Tab) 650 mg Q6H PRN PO .PAIN 1-3 OR TEMP Last administered on 08/03/18 08:20; Admin Dose 650 MG; Start 07/29/18 at 15:30 Diagnostic Test (Pha) (Accu-Chek) 1 ea 02 XX ; Start 07/30/18 at 02:00 Insulin Aspart (Novolog Insulin Pen) NOVOLOG *MILD* ALGORITHM WITH MEALS BEDTIME SC Last administered on 08/05/18 17:47; Admin Dose 1 UNIT; Start 07/29/18 at 18:00 Miscellaneous Information 1 ea NOTE XX ; Start 07/29/18 at 16:00 Glucose (Glutose) 15 gm Q15M PRN PO DECREASED GLUCOSE; Start 07/29/18 at 16:00 Glucose (Glutose) 22.5 gm Q15M PRN PO DECREASED GLUCOSE; Start 07/29/18 at 16:00 Dextrose (D50w Syringe) 25 ml Q15M PRN IV DECREASED GLUCOSE; Start 07/29/18 at 16:00 Dextrose (D50w Syringe) 50 ml Q15M PRN IV DECREASED GLUCOSE; Start 07/29/18 at 16:00 Glucagon (Glucagen) 1 mg Q15M PRN IM DECREASED GLUCOSE; Start 07/29/18 at 16:00 Glucose (Glutose) 15 gm Q15M PRN BUCCAL DECREASED GLUCOSE; Start 07/29/18 at 16:00 Metoclopramide HCl (Reglan) 5 mg Q6H PRN IV nausea Last administered on 07/30/18at 17:44; Admin Dose 5 MG; Start 07/30/18 at 14:30 Gabapentin (Neurontin) 300 mg TID PO Last administered on 08/05/18at 13:07; Admin Dose 300 MG; Start 07/30/18 at 23:00 Ertapenem 1 gm/ Sodium Chloride 100 ml @ 200 mls/hr Q24H IVPB Last administered on 08/05/18 13:06; Admin Dose 200 MLS/HR; Start 07/31/18 at 13:00; Stop 08/07/18 at 12:59 Phenazopyridine HCl (Pyridium) 200 mg TID PO Last administered on 08/05/18 13:07; Admin Dose 200 MG; Start 08/02/18 at 13:00 Amlodipine Besylate (Norvasc) 10 mg DAILY PO Last administered on 08/05/18 09:09; Admin Dose 10 MG; Start 08/03/18 at 09:00 Hydromorphone HCl (Dilaudid) 0.5 mg Q6H PRN IV SEVERE PAIN LEVEL 7-10 Last administered on 08/05/18 17:40; Admin Dose 0.5 MG; Start 08/02/18 at 12:30 Morphine Sulfate (Ms Contin (Er)) 15 mg BID PO Last administered on 08/04/18 20:47; Admin Dose 15 MG; Start 08/04/18 at 13:30 Acetylcysteine (Nac) 1,200 mg BID PO Last administered on 08/05/18 09:05; Admin Dose 1,200 MG; Start 08/04/18 at 15:00 Sodium Chloride 1,000 ml @ 75 mls/hr [id number] IV Last administered on 08/05/18 17:28; Admin Dose 75 MLS/HR; Start 08/04/18 at 14:00 Al Hydrox/Mg Hydrox/Simethicone (Mag-Al Plus) 30 ml Q4H PRN PO GASTROINTESTINAL UPSET Last administered on 08/05/18 03:02; Admin Dose 30 ML; Start 08/05/18 at 03:00 Insulin Aspart (Novolog Insulin Pen) 5 unit WITH MEALS SC Last administered on 08/05/18 17:46; Admin Dose 5 UNIT; Start 08/05/18 at 18:00 Insulin Glargine (Lantus) 12 units DAILY@2000 SC ; Start 08/05/18 at 20:00 Assessment/Plan Hospital Course (Demo Recall) 63-year-old male has a long-standing history of diabetes, chronic kidney disease, hypertension, BPH, and urinary tract infection causing sepsis requiring multiple hospitalization was sent by his primary care physician to the emergency room because he was found to have bad infection in his urine. Patient has been having fever and chills over 2 days prior to admission. He denied dysuria, hematuria, urinary frequency, urgency, dribbling, nocturia. He underwent CT scan of the abdomen and pelvis and that showed: 1. Although there has been interval decrease in density of the right subcapsular hematoma, overall the size of the subcapsular collection has been slightly increased. 2. Interval increase in the low to intermediate density perinephric fluid collection posterior and inferior to the right kidney. 3. Single focus of air is seen within the subcapsular collection which is nonspecific. Additional foci of air seen within the perinephric fluid collection. Clinical correlation with possible developing abscess is recommended. 4. Small amount of linear fluid collection outside of the Gerota's fascia extending posteriorly and inferiorly along the right paracolic gutter which is new compared to prior study. 5. Near complete resolution of the bilateral pleural effusions. 6. Persistent hepatosplenomegaly with diffuse hepatic steatosis. 7. Persistent subcentimeter retroperitoneal and mesenteric lymph nodes. A urological consultation was therefore requested I reviewed the CT scan with the radiologist and had the CT scan repeated with IV contrast and that showed: Urinary: Stable subcapsular fluid collection with heterogeneous hyperdensity at the posterior right kidney measuring 8.6 x 6.7 x 11.2 cm, better characterized on this exam with IV contrast, but unchanged in size in comparison to prior exam. There is stable extension of the fluid into the pararenal space with multiloculated fluid and scattered small foci of air; the largest component measures approximately 7.6 x 3.4 cm. Stable extension along the anterior Gerota's fascia and pericolic gutter with peripheral enhancement; the largest component along the pericolic gutter measures approximately 4.1 x 2.5 cm. Increased mild fullness/hydronephrosis of the left renal collecting system and dilation of the left ureter. Interval increased distension of the bladder, again seen with mild irregular wall thickening. The bladder is distended and when I looked at the CT scan I put the order for the nurse to insert the Ryan catheter for him but he refused. When I came in this evening I talked to him and explained to him the reason for the catheter and made him feel his bladder distended up to his umbilicus he then accepted to have the catheter and I inserted a 16 [place] and 1500 mL drained. He then did acknowledge he was doing self intermittent catheterization about an year ago. He did it for 2 weeks and then stopped. I advised him that he needs to do it again and keep doing it to prevent the urinary retention and the hydronephrosis and further damage to his renal function. As far as the fluid election, the subcapsular and the heterogeneous hyperdensity at the posterior right kidney and the suspicion for an abscess that is going to be drained by the radiologist under CT guidance hopefully tomorrow. AMI BURTON MD August 05, 2018 21:01
[2018-08-05] MEDS: INSULIN GLARGINE [LANTus] (100 UNITS/ML) SYG SC SCH (21:06)
[2018-08-06] MEDS: ACCU-CHEK XX SCH (02:00)
[2018-08-06 02:30] VITALS: BP 153/71; PULSE 106; RESP 16
[2018-08-06] MEDS: SOD CHLORIDE 0.9% 1,000 ML IV SCH ×2 (05:57→21:12)
[2018-08-06] MEDS: INSULIN ASPART [NOVOLOG] 3 ML PEN SC SCH ×7 (08:00→21:00)
[2018-08-06 08:08] VITALS: BP 136/64; PULSE 96; RESP 20
[2018-08-06] MEDS: ASPIRIN (EC) 81 MG TAB PO SCH (08:15)
[2018-08-06] MEDS: PHENAZOPYRIDINE 200 MG TAB PO SCH ×3 (08:16→21:10)
[2018-08-06] MEDS: ACETYLCYSTEINE 600 MG CAP PO SCH ×2 (08:16→21:10)
[2018-08-06] MEDS: FINASTERIDE 5 MG TAB PO SCH (08:16)
[2018-08-06] MEDS: AMLODIPINE 10 MG TAB PO SCH (08:16)
[2018-08-06] MEDS: GABAPENTIN 300 MG CAP PO SCH ×3 (08:16→21:10)
[2018-08-06] MEDS: morphine (ER) 15 MG TAB PO SCH ×3 (08:16→21:09)
[2018-08-06] MEDS: ONDANSETRON 4 MG INJ IV PRN (08:19)
[2018-08-06] MEDS: HYDROmorphONE 0.5 MG/0.5 ML SYG IV PRN ×2 (08:19→17:30)
--- NOTE | 2018-08-06 08:41 | CONS ---
Assessment/Plan Assessment/Plan Assessment/Plan (Daily) 1. Hyponatremia. - Multifactorial due to Diuretic in the setting of CKD . 2. 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 Anemia of CKD II/III 4. Sepsis secondary to urinary tract infection, pyelonephritis 6. H/o Diabetes 7. H/o Dyslipidemia 8. H/o BPH 9. H/o Hypertension 10. H/o Chronic Neurogenic bladder 11. Diffuse pelvic lymphadenopathy with perirectal inguinal lymph nodes 12. acute UTI with Urine cx growing ESBL E coli. 13. Persistent left renal subcapsular hematoma s/p CT guided drainage of hematoma 08/06/18 Plan: Na 134, BUN/Cr 23/1.28, BP stable,s till has hematuria, s/p CT guided drainage of left subcapsular hematoma on 08/06/18 IV abx INvanz for ESBL EColi UTI, Renally dose all abx and monitor electrolytes Amlodipine for BP control will follow up Consultation Date/Type/Reason Admit Date/Time July 30, 2018 at 08:40 Initial Consult Date 08/02/18 Requesting Provider: SIMONE EDDY Date/Time of Note DATE: 08/06/18 TIME: 08:40 24 HR Interval Summary Free Text/Dictation Na 134, BUN/Cr 23/1.28, BP stable,s till has hematuria Exam/Review of Systems Exam Vitals Vital Signs Date Temp Pulse Resp B/P (MAP) Pulse Ox O2 O2 Flow FiO2 Time Delivery Rate 08/06/18 99.9 96 20 136/64 90 08:08 (88) 08/04/18 Room Air 13:25 Intake and Output 08/05/18 08/05/18 08/06/18 1414:59 22:59 06:59 IntakeIntake Total 340 ml 1578 ml 1000 ml BalanceBalance 340 ml 1578 ml 1000 ml Exam Constitutional: alert Psych: no complaints Head: normocephalic ENMT: nl external ears & nose Neck: supple, non-tender Respiratory: diminished breath sounds Cardiovascular: regular rate and rhythm Gastrointestinal: soft Musculoskeletal: nl extremities to inspection Neurological: LEAD SUSTAINABILITY SPECIALIST II-XII intact, nl mental status, nl speech Lymph: nl lymph nodes Results Result Diagram: 08/06/18 0447 08/06/18 0447 Results 24hrs Laboratory Tests Test 08/05/18 08:44 08/05/18 12:28 08/05/18 17:29 08/05/18 21:00 Bedside Glucose 179 171 188 168 Test 08/06/18 04:47 08/06/18 08:14 White Blood Count 14.5 H Red Blood Count 3.38 L Hemoglobin 8.4 L Hematocrit 26.7 L Mean Corpuscular 79.0 L Volume Mean Corpuscular 24.9 L Hemoglobin Mean Corpuscular 31.5 L Hemoglobin Concent Red Cell 14.0 Distribution Width Platelet Count 468 H Mean Platelet Volume 8.5 Immature 0.600 H Granulocytes % Neutrophils % 73.5 Lymphocytes % 18.9 Monocytes % 5.3 Eosinophils % 1.4 Basophils % 0.3 Nucleated Red Blood 0.0 Cells % Immature 0.090 H Granulocytes # Neutrophils # 10.6 H Lymphocytes # 2.7 Monocytes # 0.8 Eosinophils # 0.2 Basophils # 0.0 Nucleated Red Blood 0.0 Cells # Sodium Level 134 L Potassium Level 4.4 Chloride Level 104 Carbon Dioxide Level 23 Anion Gap 7 Blood Urea Nitrogen 23 H Creatinine 1.28 H Est Glomerular 57 L Filtrat Rate mL/min Glucose Level 146 Calcium Level 8.4 Bedside Glucose 134 Medications Medication Current Medications Aspirin (Halfprin) 81 mg DAILY PO Last administered on 08/05/18 09:05; Admin Dose 81 MG; Start 07/30/18 at 09:00 Atorvastatin Calcium (Lipitor) 80 mg QHS PO Last administered on 08/05/18at 20:47; Admin Dose 80 MG; Start 07/29/18 at 21:00 Finasteride (Proscar) 5 mg DAILY PO Last administered on 08/05/18 09:05; Admin Dose 5 MG; Start 07/30/18 at 09:00 Tamsulosin HCl (Flomax) 0.4 mg HS PO Last administered on 08/04/18at 20:46; Admin Dose 0.4 MG; Start 07/29/18 at 21:00 IV Flush (NS 3 ml) 3 ml PER PROTOCOL IV ; Start 07/29/18 at 15:30 Ondansetron HCl (Zofran Inj) 4 mg Q6H PRN IV NAUSEA/VOMITING Last administered on 08/06/18 08:19; Admin Dose 4 MG; Start 07/29/18 at 15:30 Acetaminophen (Tylenol Tab) 650 mg Q6H PRN PO .PAIN 1-3 OR TEMP Last administered on 08/03/18at 08:20; Admin Dose 650 MG; Start 07/29/18 at 15:30 Diagnostic Test (Pha) (Accu-Chek) 1 ea 02 XX ; Start 07/30/18 at 02:00 Insulin Aspart (Novolog Insulin Pen) NOVOLOG *MILD* ALGORITHM WITH MEALS BEDTIME SC Last administered on 08/05/18at 17:47; Admin Dose 1 UNIT; Start 07/29/18 at 18:00 Miscellaneous Information 1 ea NOTE XX ; Start 07/29/18 at 16:00 Glucose (Glutose) 15 gm Q15M PRN PO DECREASED GLUCOSE; Start 07/29/18 at 16:00 Glucose (Glutose) 22.5 gm Q15M PRN PO DECREASED GLUCOSE; Start 07/29/18 at 16:00 Dextrose (D50w Syringe) 25 ml Q15M PRN IV DECREASED GLUCOSE; Start 07/29/18 at 16:00 Dextrose (D50w Syringe) 50 ml Q15M PRN IV DECREASED GLUCOSE; Start 07/29/18 at 16:00 Glucagon (Glucagen) 1 mg Q15M PRN IM DECREASED GLUCOSE; Start 07/29/18 at 16:00 Glucose (Glutose) 15 gm Q15M PRN BUCCAL DECREASED GLUCOSE; Start 07/29/18 at 16:00 Metoclopramide HCl (Reglan) 5 mg Q6H PRN IV nausea Last administered on 07/30/18at 17:44; Admin Dose 5 MG; Start 07/30/18 at 14:30 Gabapentin (Neurontin) 300 mg TID PO Last administered on 08/05/18at 20:48; Admin Dose 300 MG; Start 07/30/18 at 23:00 Ertapenem 1 gm/ Sodium Chloride 100 ml @ 200 mls/hr Q24H IVPB Last administered on 08/05/18at 13:06; Admin Dose 200 MLS/HR; Start 07/31/18 at 13:00; Stop 08/07/18 at 12:59 Phenazopyridine HCl (Pyridium) 200 mg TID PO Last administered on 08/05/18at 20:47; Admin Dose 200 MG; Start 08/02/18 at 13:00 Amlodipine Besylate (Norvasc) 10 mg DAILY PO Last administered on 08/05/18 09:09; Admin Dose 10 MG; Start 08/03/18 at 09:00 Hydromorphone HCl (Dilaudid) 0.5 mg Q6H PRN IV SEVERE PAIN LEVEL 7-10 Last administered on 08/06/18 08:19; Admin Dose 0.5 MG; Start 08/02/18 at 12:30 Morphine Sulfate (Ms Contin (Er)) 15 mg BID PO Last administered on 08/05/18 20:58; Admin Dose 15 MG; Start 08/04/18 at 13:30 Acetylcysteine (Nac) 1,200 mg BID PO Last administered on 08/05/18 20:48; Admin Dose 1,200 MG; Start 08/04/18 at 15:00 Sodium Chloride 1,000 ml @ 75 mls/hr [id number] IV Last administered on 08/06/18 05:57; Admin Dose 75 MLS/HR; Start 08/04/18 at 14:00 Al Hydrox/Mg Hydrox/Simethicone (Mag-Al Plus) 30 ml Q4H PRN PO GASTROINTESTINAL UPSET Last administered on 08/05/18 03:02; Admin Dose 30 ML; Start 08/05/18 at 03:00 Insulin Aspart (Novolog Insulin Pen) 5 unit WITH MEALS SC Last administered on 08/05/18 17:46; Admin Dose 5 UNIT; Start 08/05/18 at 18:00 Insulin Glargine (Lantus) 12 units DAILY@2000 SC Last administered on 08/05/18 21:06; Admin Dose 12 UNITS; Start 08/05/18 at 20:00 TALITA DICKENS MD August 06, 2018 08:41
[2018-08-06] MEDS ORDERED: LIDOCAINE 1%/EPI (1:100,000) (MDV) 20 ML ONE (10:10)
[2018-08-06] MEDS ORDERED: LIDOCAINE 1% (MDV) 20 ML INJ ONE (10:11)
[2018-08-06] MEDS ORDERED: FENTAnyl 50 MCG/ML VIAL ONE (10:45)
[2018-08-06] MEDS ORDERED: SOD CHLORIDE 0.9% 500 ML ONE (10:45)
[2018-08-06] MEDS: ERTAPENEM SODIUM 1 GM in SOD CHLORIDE 0.9% 100 ML IVPB SCH (12:53)
--- NOTE | 2018-08-06 12:55 | CONS ---
Assessment/Plan Assessment/Plan Hospital Course (Demo Recall) No acute changes alert, feels good, no fevers, s/p CT guided fluid drainage this am CT abdomen and pelvis revealed slightly increased the size of the subcapsular fluid collection. Interval increase in the low to intermediate density perinephric fluid collection posterior and inferior to the right kidney. Presence of foci of air within the perinephric fluid collection with consideration of developing abscess. Please see full report in the chart Antimicrobials: Invanz Microbiology: Urine culture on admission grew E. coli ESBL Physical examination: Well-developed elderly man who is in no distress. Head atraumatic normocephalic neck is supple chest rise symmetrical breath sounds diminished bases. Heart: S1-S2 abdomen soft bowel sounds present Assessment: 1. E. coli ESBL UTI 2. BPH/retention, s/p Ryan 3. Diabetes 4. Anemia 5. Subacute right subcapsular hematoma with mild left hydronephrosis ?abscess Plan: Patient remains stable, urology on case, s/p CT guided drainage of renal fluid, will f/u cx's and pathology DW pt Consultation Date/Type/Reason Admit Date/Time July 30, 2018 at 08:40 Initial Consult Date 08/02/18 Type of Consult id Requesting Provider: SIMONE EDDY Date/Time of Note DATE: 08/06/18 TIME: 12:53 Exam/Review of Systems Exam Vitals Vital Signs Date Temp Pulse Resp B/P (MAP) Pulse Ox O2 O2 Flow FiO2 Time Delivery Rate 08/06/18 99.9 96 20 136/64 90 08:08 (88) 08/04/18 Room Air 13:25 Intake and Output 08/05/18 08/05/18 08/06/18 1515:00 23:00 07:00 IntakeIntake Total 340 ml 1578 ml 1000 ml BalanceBalance 340 ml 1578 ml 1000 ml Results Result Diagram: 08/06/18 0447 08/06/18 0447 Results 24hrs Laboratory Tests Test 08/05/18 17:29 08/05/18 21:00 08/06/18 04:47 08/06/18 08:14 Bedside Glucose 188 168 134 White Blood Count 14.5 H Red Blood Count 3.38 L Hemoglobin 8.4 L Hematocrit 26.7 L Mean Corpuscular 79.0 L Volume Mean Corpuscular 24.9 L Hemoglobin Mean Corpuscular 31.5 L Hemoglobin Concent Red Cell 14.0 Distribution Width Platelet Count 468 H Mean Platelet Volume 8.5 Immature 0.600 H Granulocytes % Neutrophils % 73.5 Lymphocytes % 18.9 Monocytes % 5.3 Eosinophils % 1.4 Basophils % 0.3 Nucleated Red Blood 0.0 Cells % Immature 0.090 H Granulocytes # Neutrophils # 10.6 H Lymphocytes # 2.7 Monocytes # 0.8 Eosinophils # 0.2 Basophils # 0.0 Nucleated Red Blood 0.0 Cells # Sodium Level 134 L Potassium Level 4.4 Chloride Level 104 Carbon Dioxide Level 23 Anion Gap 7 Blood Urea Nitrogen 23 H Creatinine 1.28 H Est Glomerular 57 L Filtrat Rate mL/min Glucose Level 146 Calcium Level 8.4 Medications Medication Current Medications Aspirin (Halfprin) 81 mg DAILY PO Last administered on 08/05/18 09:05; Admin Dose 81 MG; Start 07/30/18 at 09:00 Atorvastatin Calcium (Lipitor) 80 mg QHS PO Last administered on 08/05/18 20:47; Admin Dose 80 MG; Start 07/29/18 at 21:00 Finasteride (Proscar) 5 mg DAILY PO Last administered on 08/05/18 09:05; Admin Dose 5 MG; Start 07/30/18 at 09:00 Tamsulosin HCl (Flomax) 0.4 mg HS PO Last administered on 08/04/18 20:46; Admin Dose 0.4 MG; Start 07/29/18 at 21:00 IV Flush (NS 3 ml) 3 ml PER PROTOCOL IV ; Start 07/29/18 at 15:30 Ondansetron HCl (Zofran Inj) 4 mg Q6H PRN IV NAUSEA/VOMITING Last administered on 08/06/18 08:19; Admin Dose 4 MG; Start 07/29/18 at 15:30 Acetaminophen (Tylenol Tab) 650 mg Q6H PRN PO .PAIN 1-3 OR TEMP Last administered on 08/03/18 08:20; Admin Dose 650 MG; Start 07/29/18 at 15:30 Diagnostic Test (Pha) (Accu-Chek) 1 ea 02 XX ; Start 07/30/18 at 02:00 Insulin Aspart (Novolog Insulin Pen) NOVOLOG *MILD* ALGORITHM WITH MEALS BEDTIME SC Last administered on 08/05/18 17:47; Admin Dose 1 UNIT; Start 07/29/18 at 18:00 Miscellaneous Information 1 ea NOTE XX ; Start 07/29/18 at 16:00 Glucose (Glutose) 15 gm Q15M PRN PO DECREASED GLUCOSE; Start 07/29/18 at 16:00 Glucose (Glutose) 22.5 gm Q15M PRN PO DECREASED GLUCOSE; Start 07/29/18 at 16:00 Dextrose (D50w Syringe) 25 ml Q15M PRN IV DECREASED GLUCOSE; Start 07/29/18 at 16:00 Dextrose (D50w Syringe) 50 ml Q15M PRN IV DECREASED GLUCOSE; Start 07/29/18 at 16:00 Glucagon (Glucagen) 1 mg Q15M PRN IM DECREASED GLUCOSE; Start 07/29/18 at 16:00 Glucose (Glutose) 15 gm Q15M PRN BUCCAL DECREASED GLUCOSE; Start 07/29/18 at 16:00 Metoclopramide HCl (Reglan) 5 mg Q6H PRN IV nausea Last administered on 07/30/18at 17:44; Admin Dose 5 MG; Start 07/30/18 at 14:30 Gabapentin (Neurontin) 300 mg TID PO Last administered on 08/05/18 20:48; Admin Dose 300 MG; Start 07/30/18 at 23:00 Ertapenem 1 gm/ Sodium Chloride 100 ml @ 200 mls/hr Q24H IVPB Last administered on 08/05/18 13:06; Admin Dose 200 MLS/HR; Start 07/31/18 at 13:00; Stop 08/07/18 at 12:59 Phenazopyridine HCl (Pyridium) 200 mg TID PO Last administered on 08/05/18 20:47; Admin Dose 200 MG; Start 08/02/18 at 13:00 Amlodipine Besylate (Norvasc) 10 mg DAILY PO Last administered on 08/05/18 09:09; Admin Dose 10 MG; Start 08/03/18 at 09:00 Hydromorphone HCl (Dilaudid) 0.5 mg Q6H PRN IV SEVERE PAIN LEVEL 7-10 Last administered on 08/06/18 08:19; Admin Dose 0.5 MG; Start 08/02/18 at 12:30 Morphine Sulfate (Ms Contin (Er)) 15 mg BID PO Last administered on 08/05/18 20:58; Admin Dose 15 MG; Start 08/04/18 at 13:30 Acetylcysteine (Nac) 1,200 mg BID PO Last administered on 08/05/18 20:48; Admin Dose 1,200 MG; Start 08/04/18 at 15:00 Sodium Chloride 1,000 ml @ 75 mls/hr [id number] IV Last administered on 08/06/18 05:57; Admin Dose 75 MLS/HR; Start 08/04/18 at 14:00 Al Hydrox/Mg Hydrox/Simethicone (Mag-Al Plus) 30 ml Q4H PRN PO GASTROINTESTINAL UPSET Last administered on 08/05/18 03:02; Admin Dose 30 ML; Start 08/05/18 at 03:00 Insulin Aspart (Novolog Insulin Pen) 5 unit WITH MEALS SC Last administered on 08/05/18at 17:46; Admin Dose 5 UNIT; Start 08/05/18 at 18:00 Insulin Glargine (Lantus) 12 units DAILY@2000 SC Last administered on 08/05/18 21:06; Admin Dose 12 UNITS; Start 08/05/18 at 20:00 BELL WEEMS NP August 06, 2018 12:55
[2018-08-06 14:22] VITALS: BP 122/57; PULSE 93; RESP 20
--- NOTE | 2018-08-06 18:00 | CONS ---
Consult Date/Type/Reason Admit Date/Time July 30, 2018 at 08:40 Initial Consult Date 08/04/18 Type of Consultation: Urology Reason for Consultation Right renal subcapsular hematoma and possible abscess Requesting Provider: SIMONE EDDY Date/Time of Note DATE: 08/06/18 TIME: 17:59 Subjective Patient is feeling comfortable, he does not complain of the Ryan catheter. Objective Vitals Vital Signs Date Temp Pulse Resp B/P (MAP) Pulse Ox O2 O2 Flow FiO2 Time Delivery Rate 08/06/18 99.0 93 20 122/57 91 14:22 (78) 08/04/18 Room Air 13:25 Intake and Output 08/05/18 08/05/18 08/06/18 1515:00 23:00 07:00 IntakeIntake Total 340 ml 1578 ml 1000 ml BalanceBalance 340 ml 1578 ml 1000 ml Exam Abdomen is soft there is no suprapubic tenderness, the Ryan catheter is draining orange-colored urine because of the peritoneum. He underwent aspiration of the right renal subcapsular hematoma earlier this morning. Results/Medications Result Diagram: 08/06/18 0447 08/06/18 0447 Results 24 hrs Laboratory Tests Test 08/05/18 21:00 08/06/18 04:47 08/06/18 08:14 08/06/18 12:56 Bedside Glucose 168 134 142 White Blood Count 14.5 H Red Blood Count 3.38 L Hemoglobin 8.4 L Hematocrit 26.7 L Mean Corpuscular 79.0 L Volume Mean Corpuscular 24.9 L Hemoglobin Mean Corpuscular 31.5 L Hemoglobin Concent Red Cell 14.0 Distribution Width Platelet Count 468 H Mean Platelet Volume 8.5 Immature 0.600 H Granulocytes % Neutrophils % 73.5 Lymphocytes % 18.9 Monocytes % 5.3 Eosinophils % 1.4 Basophils % 0.3 Nucleated Red Blood 0.0 Cells % Immature 0.090 H Granulocytes # Neutrophils # 10.6 H Lymphocytes # 2.7 Monocytes # 0.8 Eosinophils # 0.2 Basophils # 0.0 Nucleated Red Blood 0.0 Cells # Sodium Level 134 L Potassium Level 4.4 Chloride Level 104 Carbon Dioxide Level 23 Anion Gap 7 Blood Urea Nitrogen 23 H Creatinine 1.28 H Est Glomerular 57 L Filtrat Rate mL/min Glucose Level 146 Calcium Level 8.4 Test 08/06/18 17:33 Bedside Glucose 147 Home Meds Reported Medications Mirtazapine* (Remeron*) Unknown Strength Tablet, 1 TAB PO HS, TAB 07/29/18 Tamsulosin Hcl* (Flomax*) 0.4 Mg Cap.er.24h, 0.4 MG PO HS, CAP 07/29/18 Atorvastatin* (Atorvastatin*) 80 Mg Tablet, 80 MG PO QHS, #30 TAB 07/29/18 Gabapentin* (Gabapentin*) 300 Mg Capsule, 300 MG PO DAILY, #60 CAP 07/29/18 Finasteride* (Finasteride*) 5 Mg Tablet, 5 MG PO DAILY, TAB 07/29/18 Aspirin* (Aspirin* EC) 81 Mg Tablet.dr, 81 MG PO DAILY, TAB 07/29/18 Lisinopril/Hydrochlorothiazide (Lisinopril-Hctz 20-12.5 mg Tab) 1 Each Tablet, 1 EACH PO BID, TAB 07/29/18 Medications Current Medications Aspirin (Halfprin) 81 mg DAILY PO Last administered on 08/05/18at 09:05; Admin Dose 81 MG; Start 07/30/18 at 09:00 Atorvastatin Calcium (Lipitor) 80 mg QHS PO Last administered on 08/05/18at 20:47; Admin Dose 80 MG; Start 07/29/18 at 21:00 Finasteride (Proscar) 5 mg DAILY PO Last administered on 08/05/18 09:05; Admin Dose 5 MG; Start 07/30/18 at 09:00 Tamsulosin HCl (Flomax) 0.4 mg HS PO Last administered on 08/04/18at 20:46; Admin Dose 0.4 MG; Start 07/29/18 at 21:00 IV Flush (NS 3 ml) 3 ml PER PROTOCOL IV ; Start 07/29/18 at 15:30 Ondansetron HCl (Zofran Inj) 4 mg Q6H PRN IV NAUSEA/VOMITING Last administered on 08/06/18 08:19; Admin Dose 4 MG; Start 07/29/18 at 15:30 Acetaminophen (Tylenol Tab) 650 mg Q6H PRN PO .PAIN 1-3 OR TEMP Last administered on 08/03/18 08:20; Admin Dose 650 MG; Start 07/29/18 at 15:30 Diagnostic Test (Pha) (Accu-Chek) 1 ea 02 XX ; Start 07/30/18 at 02:00 Insulin Aspart (Novolog Insulin Pen) NOVOLOG *MILD* ALGORITHM WITH MEALS BEDTI ME SC Last administered on 08/06/18at 17:42; Admin Dose 1 UNIT; Start 07/29/18 at 18:00 Miscellaneous Information 1 ea NOTE XX ; Start 07/29/18 at 16:00 Glucose (Glutose) 15 gm Q15M PRN PO DECREASED GLUCOSE; Start 07/29/18 at 16:00 Glucose (Glutose) 22.5 gm Q15M PRN PO DECREASED GLUCOSE; Start 07/29/18 at 16:00 Dextrose (D50w Syringe) 25 ml Q15M PRN IV DECREASED GLUCOSE; Start 07/29/18 at 16:00 Dextrose (D50w Syringe) 50 ml Q15M PRN IV DECREASED GLUCOSE; Start 07/29/18 at 16:00 Glucagon (Glucagen) 1 mg Q15M PRN IM DECREASED GLUCOSE; Start 07/29/18 at 16:00 Glucose (Glutose) 15 gm Q15M PRN BUCCAL DECREASED GLUCOSE; Start 07/29/18 at 16:00 Metoclopramide HCl (Reglan) 5 mg Q6H PRN IV nausea Last administered on 07/30/18at 17:44; Admin Dose 5 MG; Start 07/30/18 at 14:30 Gabapentin (Neurontin) 300 mg TID PO Last administered on 08/06/18 12:53; Admin Dose 300 MG; Start 07/30/18 at 23:00 Ertapenem 1 gm/ Sodium Chloride 100 ml @ 200 mls/hr Q24H IVPB Last administered on 08/06/18at 12:53; Admin Dose 200 MLS/HR; Start 07/31/18 at 13:00; Stop 08/07/18 at 12:59 Phenazopyridine HCl (Pyridium) 200 mg TID PO Last administered on 08/06/18 12:53; Admin Dose 200 MG; Start 08/02/18 at 13:00 Amlodipine Besylate (Norvasc) 10 mg DAILY PO Last administered on 08/05/18 09:09; Admin Dose 10 MG; Start 08/03/18 at 09:00 Hydromorphone HCl (Dilaudid) 0.5 mg Q6H PRN IV SEVERE PAIN LEVEL 7-10 Last administered on 08/06/18 17:30; Admin Dose 0.5 MG; Start 08/02/18 at 12:30 Morphine Sulfate (Ms Contin (Er)) 15 mg BID PO Last administered on 08/06/18 12:54; Admin Dose 15 MG; Start 08/04/18 at 13:30 Acetylcysteine (Nac) 1,200 mg BID PO Last administered on 08/05/18 20:48; Admin Dose 1,200 MG; Start 08/04/18 at 15:00 Sodium Chloride 1,000 ml @ 75 mls/hr [id number] IV Last administered on 08/06/18 05:57; Admin Dose 75 MLS/HR; Start 08/04/18 at 14:00 Al Hydrox/Mg Hydrox/Simethicone (Mag-Al Plus) 30 ml Q4H PRN PO GASTROINTESTINAL UPSET Last administered on 08/05/18 03:02; Admin Dose 30 ML; Start 08/05/18 at 03:00 Insulin Aspart (Novolog Insulin Pen) 5 unit WITH MEALS SC Last administered on 08/06/18 17:42; Admin Dose 5 UNIT; Start 08/05/18 at 18:00 Insulin Glargine (Lantus) 12 units DAILY@2000 SC Last administered on 08/05/18 21:06; Admin Dose 12 UNITS; Start 08/05/18 at 20:00 Assessment/Plan Hospital Course (Demo Recall) 63-year-old male has a long-standing history of diabetes, chronic kidney disease, hypertension, BPH, and urinary tract infection causing sepsis requiring multiple hospitalization was sent by his primary care physician to the emergency room because he was found to have bad infection in his urine. Patient has been having fever and chills over 2 days prior to admission. He denied dysuria, hematuria, urinary frequency, urgency, dribbling, nocturia. He underwent CT scan of the abdomen and pelvis and that showed: 1. Although there has been interval decrease in density of the right subcapsular hematoma, overall the size of the subcapsular collection has been slightly increased. 2. Interval increase in the low to intermediate density perinephric fluid collection posterior and inferior to the right kidney. 3. Single focus of air is seen within the subcapsular collection which is nonspecific. Additional foci of air seen within the perinephric fluid collection. Clinical correlation with possible developing abscess is recommended. 4. Small amount of linear fluid collection outside of the Gerota's fascia e xtending posteriorly and inferiorly along the right paracolic gutter which is new compared to prior study. 5. Near complete resolution of the bilateral pleural effusions. 6. Persistent hepatosplenomegaly with diffuse hepatic steatosis. 7. Persistent subcentimeter retroperitoneal and mesenteric lymph nodes. A urological consultation was therefore requested I reviewed the CT scan with the radiologist and had the CT scan repeated with IV contrast and that showed: Urinary: Stable subcapsular fluid collection with heterogeneous hyperdensity at the posterior right kidney measuring 8.6 x 6.7 x 11.2 cm, better characterized on this exam with IV contrast, but unchanged in size in comparison to prior exam. There is stable extension of the fluid into the pararenal space with multiloculated fluid and scattered small foci of air; the largest component measures approximately 7.6 x 3.4 cm. Stable extension along the anterior Gerota's fascia and pericolic gutter with peripheral enhancement; the largest component along the pericolic gutter measures approximately 4.1 x 2.5 cm. Increased mild fullness/hydronephrosis of the left renal collecting system and dilation of the left ureter. Interval increased distension of the bladder, again seen with mild irregular wall thickening. The bladder is distended and when I looked at the CT scan I put the order for the nurse to insert the Ryan catheter for him but he refused. When I came in this evening I talked to him and explained to him the reason for the catheter and made him feel his bladder distended up to his umbilicus he then accepted to have the catheter and I inserted a 16 [place] and 1500 mL drained. He then did acknowledge he was doing self intermittent catheterization about an year ago. He did it for 2 weeks and then stopped. I advised him that he needs to do it again and keep doing it to prevent the urinary retention and the hydronephrosis and further damage to his renal function. As far as the fluid election, the subcapsular and the heterogeneous hyperdensity at the posterior right kidney and the suspicion for an abscess that was drained today by the radiologist and about 120 mL of bloody fluid was removed. That was sent for culture. AMI BURTON MD August 06, 2018 18:00
[2018-08-06 19:49] VITALS: BP 127/62; PULSE 81; RESP 16
[2018-08-06] MEDS: TAMSULOSIN (SR) 0.4 MG CAP PO SCH (21:00)
[2018-08-06] MEDS: INSULIN GLARGINE [LANTus] (100 UNITS/ML) SYG SC SCH (21:09)
[2018-08-06] MEDS: ATORVASTATIN 80 MG TAB PO SCH (21:10)
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
[2018-08-07] MEDS: ACCU-CHEK XX SCH (02:00)
[2018-08-07 02:04] VITALS: BP 137/62; PULSE 93; RESP 15
[2018-08-07 02:49] VITALS: PULSE 92
[2018-08-07] MEDS: HYDROmorphONE 0.5 MG/0.5 ML SYG IV PRN ×3 (07:02→22:30)
[2018-08-07 07:45] VITALS: BP 133/62; PULSE 86; RESP 16
[2018-08-07] MEDS: INSULIN ASPART [NOVOLOG] 3 ML PEN SC SCH ×7 (08:00→20:34)
[2018-08-07] MEDS: SOD CHLORIDE 0.9% 1,000 ML IV SCH (08:40)
[2018-08-07] MEDS: GABAPENTIN 300 MG CAP PO SCH ×3 (09:12→20:28)
[2018-08-07] MEDS: AMLODIPINE 10 MG TAB PO SCH (09:12)
[2018-08-07] MEDS: ACETYLCYSTEINE 600 MG CAP PO SCH ×2 (09:12→20:27)
[2018-08-07] MEDS: PHENAZOPYRIDINE 200 MG TAB PO SCH ×3 (09:12→20:28)
[2018-08-07] MEDS: ASPIRIN (EC) 81 MG TAB PO SCH (09:13)
[2018-08-07] MEDS: morphine (ER) 15 MG TAB PO SCH ×2 (09:13→20:30)
[2018-08-07] MEDS: FINASTERIDE 5 MG TAB PO SCH (09:13)
--- NOTE | 2018-08-07 13:02 | PN ---
Date/Time of Note Date/Time of Note DATE: 08/07/18 TIME: 12:58 Assessment/Plan VTE [place] [facility] [place]: 2 SCD applied (from N[place]): Yes Pharmacological prophylaxis: heparin Lines/Catheters [facility] Urinary Cath still in place: Yes Reason Cath still needed: urinary retention Assessment/Plan Problems: (1) UTI due to extended-spectrum beta lactamase (ESBL) producing Escherichia coli Status: Acute Comment: Patient is on appropriate antibiotic therapy. Please note that he is stated that he has some personal business to attend to on August 09. (2) Hematoma of right kidney Status: Acute Comment: Status post drainage procedure. Cultures are pending. 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 He will likely need to be doing self catheterizations as an outpatient. Defer to Dr. Red (6) Hyperlipidemia associated with type 2 diabetes mellitus Status: Chronic Comment: On treatment at this time Result Diagram: 08/07/18 0659 08/07/18 0659 Results 24hrs Laboratory Tests Test 08/06/18 17:33 08/06/18 21:06 08/07/18 06:59 08/07/18 09:20 Bedside Glucose 147 101 73 White Blood Count 13.6 H Red Blood Count 3.07 L Hemoglobin 7.6 L Hematocrit 24.2 L Mean Corpuscular 78.8 L Volume Mean Corpuscular 24.8 L Hemoglobin Mean Corpuscular 31.4 L Hemoglobin Concent Red Cell Distribution 13.8 Width Platelet Count 447 H Mean Platelet Volume 8.3 Immature Granulocytes 0.600 H % Neutrophils % 69.5 Lymphocytes % 21.8 Monocytes % 6.2 Eosinophils % 1.6 Basophils % 0.3 Nucleated Red Blood 0.0 Cells % Immature Granulocytes 0.080 H # Neutrophils # 9.4 H Lymphocytes # 3.0 H Monocytes # 0.8 Eosinophils # 0.2 Basophils # 0.0 Nucleated Red Blood 0.0 Cells # Sodium Level 134 L Potassium Level 4.1 Chloride Level 105 Carbon Dioxide Level 23 Anion Gap 6 Blood Urea Nitrogen 18 Creatinine 1.17 Est Glomerular Filtrat > 60 Rate mL/min Glucose Level 69 #L Calcium Level 8.7 Phosphorus Level 3.9 Magnesium Level 1.9 Subjective 24 Hr Interval Summary Free Text/Dictation Patient somewhat anxious and worried about the status of his work-up. He reports he did not quite understand all the explanation he has had and wanted his situation re-explained. In addition he reports that he has important personal business to attend to on August 09, 2018 Constitutional: no complaints Respiratory: no complaints Cardiovascular: no complaints Gastrointestinal: no complaints Exam/Review of Systems Exam Vitals Vital Signs Date Temp Pulse Resp B/P (MAP) Pulse Ox O2 O2 Flow FiO2 Time Delivery Rate 08/07/18 98.5 86 16 133/62 93 07:45 (85) 08/07/18 Nasal 2.0 02:49 Cannula Intake and Output 08/06/18 08/06/18 08/07/18 1515:00 23:00 07:00 IntakeIntake Total 1480 ml 606 ml OutputOutput Total 1500 ml 1400 ml BalanceBalance -1500 ml 80 ml 606 ml Constitutional: alert, oriented Psych: anxiety Head: normocephalic, atraumatic Respiratory: clear to auscultation, normal air movement Cardiovascular: regular rate and rhythm, nl pulses Gastrointestinal: soft, nl liver, spleen, non-tender Results Results 24hrs Laboratory Tests Test 08/06/18 17:33 08/06/18 21:06 08/07/18 06:59 08/07/18 09:20 Bedside Glucose 147 101 73 White Blood Count 13.6 H Red Blood Count 3.07 L Hemoglobin 7.6 L Hematocrit 24.2 L Mean Corpuscular 78.8 L Volume Mean Corpuscular 24.8 L Hemoglobin Mean Corpuscular 31.4 L Hemoglobin Concent Red Cell Distribution 13.8 Width Platelet Count 447 H Mean Platelet Volume 8.3 Immature Granulocytes 0.600 H % Neutrophils % 69.5 Lymphocytes % 21.8 Monocytes % 6.2 Eosinophils % 1.6 Basophils % 0.3 Nucleated Red Blood 0.0 Cells % Immature Granulocytes 0.080 H # Neutrophils # 9.4 H Lymphocytes # 3.0 H Monocytes # 0.8 Eosinophils # 0.2 Basophils # 0.0 Nucleated Red Blood 0.0 Cells # Sodium Level 134 L Potassium Level 4.1 Chloride Level 105 Carbon Dioxide Level 23 Anion Gap 6 Blood Urea Nitrogen 18 Creatinine 1.17 Est Glomerular Filtrat > 60 Rate mL/min Glucose Level 69 #L Calcium Level 8.7 Phosphorus Level 3.9 Magnesium Level 1.9 Medications Medication Current Medications Aspirin (Halfprin) 81 mg DAILY PO Last administered on 08/07/18 09:13; Admin Dose 81 MG; Start 07/30/18 at 09:00 Atorvastatin Calcium (Lipitor) 80 mg QHS PO Last administered on 08/06/18 21:10; Admin Dose 80 MG; Start 07/29/18 at 21:00 Finasteride (Proscar) 5 mg DAILY PO Last administered on 08/07/18 09:13; Admin Dose 5 MG; Start 07/30/18 at 09:00 IV Flush (NS 3 ml) 3 ml PER PROTOCOL IV ; Start 07/29/18 at 15:30 Ondansetron HCl (Zofran Inj) 4 mg Q6H PRN IV NAUSEA/VOMITING Last administered on 08/06/18 08:19; Admin Dose 4 MG; Start 07/29/18 at 15:30 Acetaminophen (Tylenol Tab) 650 mg Q6H PRN PO .PAIN 1-3 OR TEMP Last administered on 08/03/18 08:20; Admin Dose 650 MG; Start 07/29/18 at 15:30 Diagnostic Test (Pha) (Accu-Chek) 1 ea 02 XX ; Start 07/30/18 at 02:00 Insulin Aspart (Novolog Insulin Pen) NOVOLOG *MILD* ALGORITHM WITH MEALS BEDTIME SC Last administered on 08/06/18at 17:42; Admin Dose 1 UNIT; Start 07/29/18 at 18:00 Miscellaneous Information 1 ea NOTE XX ; Start 07/29/18 at 16:00 Glucose (Glutose) 15 gm Q15M PRN PO DECREASED GLUCOSE; Start 07/29/18 at 16:00 Glucose (Glutose) 22.5 gm Q15M PRN PO DECREASED GLUCOSE; Start 07/29/18 at 16:00 Dextrose (D50w Syringe) 25 ml Q15M PRN IV DECREASED GLUCOSE; Start 07/29/18 at 16:00 Dextrose (D50w Syringe) 50 ml Q15M PRN IV DECREASED GLUCOSE; Start 07/29/18 at 16:00 Glucagon (Glucagen) 1 mg Q15M PRN IM DECREASED GLUCOSE; Start 07/29/18 at 16:00 Glucose (Glutose) 15 gm Q15M PRN BUCCAL DECREASED GLUCOSE; Start 07/29/18 at 16:00 Metoclopramide HCl (Reglan) 5 mg Q6H PRN IV nausea Last administered on 07/30/18at 17:44; Admin Dose 5 MG; Start 07/30/18 at 14:30 Gabapentin (Neurontin) 300 mg TID PO Last administered on 08/07/18 09:12; Admin Dose 300 MG; Start 07/30/18 at 23:00 Ertapenem 1 gm/ Sodium Chloride 100 ml @ 200 mls/hr Q24H IVPB Last administered on 08/06/18at 12:53; Admin Dose 200 MLS/HR; Start 07/31/18 at 13:00; Stop 08/07/18 at 12:59 Phenazopyridine HCl (Pyridium) 200 mg TID PO Last administered on 08/07/18 09:12; Admin Dose 200 MG; Start 08/02/18 at 13:00 Amlodipine Besylate (Norvasc) 10 mg DAILY PO Last administered on 08/07/18 09:12; Admin Dose 10 MG; Start 08/03/18 at 09:00 Hydromorphone HCl (Dilaudid) 0.5 mg Q6H PRN IV SEVERE PAIN LEVEL 7-10 Last administered on 08/07/18 07:02; Admin Dose 0.5 MG; Start 08/02/18 at 12:30 Morphine Sulfate (Ms Contin (Er)) 15 mg BID PO Last administered on 08/07/18 09:13; Admin Dose 15 MG; Start 08/04/18 at 13:30 Acetylcysteine (Nac) 1,200 mg BID PO Last administered on 08/07/18 09:12; Admin Dose 1,200 MG; Start 08/04/18 at 15:00; Stop 08/10/18 at 14:59 Sodium Chloride 1,000 ml @ 75 mls/hr [id number] IV Last administered on 08/06/18at 21:12; Admin Dose 75 MLS/HR; Start 08/04/18 at 14:00 Al Hydrox/Mg Hydrox/Simethicone (Mag-Al Plus) 30 ml Q4H PRN PO GASTROINTESTINAL UPSET Last administered on 08/05/18 03:02; Admin Dose 30 ML; Start 08/05/18 at 03:00 Insulin Aspart (Novolog Insulin Pen) 5 unit WITH MEALS SC Last administered on 08/07/18at 12:50; Admin Dose 5 UNIT; Start 08/05/18 at 18:00 Insulin Glargine (Lantus) 12 units DAILY@2000 SC Last administered on 08/06/18at 21:09; Admin Dose 12 UNITS; Start 08/05/18 at 20:00 Tamsulosin HCl (Flomax) 0.4 mg BID PO ; Start 08/07/18 at 21:00 JEAN TRAYLOR MD Aug 07, 2018 13:02
--- NOTE | 2018-08-07 13:52 | CONS ---
Assessment/Plan Assessment/Plan Hospital Course (Demo Recall) No acute changes Antimicrobials: Invanz Microbiology: Urine culture on admission grew E. coli ESBL, aspirated fluid cultures positive for gram-negative rods Physical examination: Well-developed elderly man who is in no distress. Head atraumatic normocephalic neck is supple chest rise symmetrical breath sounds diminished bases. Heart: S1-S2 abdomen soft bowel sounds present Assessment: 1. E. coli ESBL UTI 2. BPH/retention, s/p Ryan 3. Diabetes 4. Anemia 5. Subacute right subcapsular hematoma with mild left hydronephrosis ?abscess Plan: Patient remains stable, s/p CT guided drainage of renal fluid 08/06/18, continue abx, will f/u cx's and pathology Consultation Date/Type/Reason Admit Date/Time July 30, 2018 at 08:40 Initial Consult Date 08/02/18 Type of Consult id Requesting Provider: SIMONE EDDY Date/Time of Note DATE: 08/07/18 TIME: 13:50 Exam/Review of Systems Exam Vitals Vital Signs Date Temp Pulse Resp B/P (MAP) Pulse Ox O2 O2 Flow FiO2 Time Delivery Rate 08/07/18 98.5 86 16 133/62 93 07:45 (85) 08/07/18 Nasal 2.0 02:49 Cannula Intake and Output 08/06/18 08/06/18 08/07/18 1515:00 23:00 07:00 IntakeIntake Total 1480 ml 606 ml OutputOutput Total 1500 ml 1400 ml BalanceBalance -1500 ml 80 ml 606 ml Results Result Diagram: 08/07/18 0659 08/07/18 0659 Results 24hrs Laboratory Tests Test 08/06/18 17:33 08/06/18 21:06 08/07/18 06:59 08/07/18 09:20 Bedside Glucose 147 101 73 White Blood Count 13.6 H Red Blood Count 3.07 L Hemoglobin 7.6 L Hematocrit 24.2 L Mean Corpuscular 78.8 L Volume Mean Corpuscular 24.8 L Hemoglobin Mean Corpuscular 31.4 L Hemoglobin Concent Red Cell Distribution 13.8 Width Platelet Count 447 H Mean Platelet Volume 8.3 Immature Granulocytes 0.600 H % Neutrophils % 69.5 Lymphocytes % 21.8 Monocytes % 6.2 Eosinophils % 1.6 Basophils % 0.3 Nucleated Red Blood 0.0 Cells % Immature Granulocytes 0.080 H # Neutrophils # 9.4 H Lymphocytes # 3.0 H Monocytes # 0.8 Eosinophils # 0.2 Basophils # 0.0 Nucleated Red Blood 0.0 Cells # Sodium Level 134 L Potassium Level 4.1 Chloride Level 105 Carbon Dioxide Level 23 Anion Gap 6 Blood Urea Nitrogen 18 Creatinine 1.17 Est Glomerular Filtrat > 60 Rate mL/min Glucose Level 69 #L Calcium Level 8.7 Phosphorus Level 3.9 Magnesium Level 1.9 Test 08/07/18 12:47 Bedside Glucose 91 Medications Medication Current Medications Aspirin (Halfprin) 81 mg DAILY PO Last administered on 08/07/18 09:13; Admin Dose 81 MG; Start 07/30/18 at 09:00 Atorvastatin Calcium (Lipitor) 80 mg QHS PO Last administered on 08/06/18 21:10; Admin Dose 80 MG; Start 07/29/18 at 21:00 Finasteride (Proscar) 5 mg DAILY PO Last administered on 08/07/18 09:13; Admin Dose 5 MG; Start 07/30/18 at 09:00 IV Flush (NS 3 ml) 3 ml PER PROTOCOL IV ; Start 07/29/18 at 15:30 Ondansetron HCl (Zofran Inj) 4 mg Q6H PRN IV NAUSEA/VOMITING Last administered on 08/06/18 08:19; Admin Dose 4 MG; Start 07/29/18 at 15:30 Acetaminophen (Tylenol Tab) 650 mg Q6H PRN PO .PAIN 1-3 OR TEMP Last administered on 08/03/18 08:20; Admin Dose 650 MG; Start 07/29/18 at 15:30 Diagnostic Test (Pha) (Accu-Chek) 1 ea 02 XX ; Start 07/30/18 at 02:00 Insulin Aspart (Novolog Insulin Pen) NOVOLOG *MILD* ALGORITHM WITH MEALS BEDTIME SC Last administered on 08/06/18at 17:42; Admin Dose 1 UNIT; Start 07/29/18 at 18:00 Miscellaneous Information 1 ea NOTE XX ; Start 07/29/18 at 16:00 Glucose (Glutose) 15 gm Q15M PRN PO DECREASED GLUCOSE; Start 07/29/18 at 16:00 Glucose (Glutose) 22.5 gm Q15M PRN PO DECREASED GLUCOSE; Start 07/29/18 at 1 6:00 Dextrose (D50w Syringe) 25 ml Q15M PRN IV DECREASED GLUCOSE; Start 07/29/18 at 16:00 Dextrose (D50w Syringe) 50 ml Q15M PRN IV DECREASED GLUCOSE; Start 07/29/18 at 16:00 Glucagon (Glucagen) 1 mg Q15M PRN IM DECREASED GLUCOSE; Start 07/29/18 at 16:00 Glucose (Glutose) 15 gm Q15M PRN BUCCAL DECREASED GLUCOSE; Start 07/29/18 at 16:00 Metoclopramide HCl (Reglan) 5 mg Q6H PRN IV nausea Last administered on 07/30/18at 17:44; Admin Dose 5 MG; Start 07/30/18 at 14:30 Gabapentin (Neurontin) 300 mg TID PO Last administered on 08/07/18 09:12; Admin Dose 300 MG; Start 07/30/18 at 23:00 Phenazopyridine HCl (Pyridium) 200 mg TID PO Last administered on 08/07/18 09:12; Admin Dose 200 MG; Start 08/02/18 at 13:00 Amlodipine Besylate (Norvasc) 10 mg DAILY PO Last administered on 08/07/18 09:12; Admin Dose 10 MG; Start 08/03/18 at 09:00 Hydromorphone HCl (Dilaudid) 0.5 mg Q6H PRN IV SEVERE PAIN LEVEL 7-10 Last administered on 08/07/18at 07:02; Admin Dose 0.5 MG; Start 08/02/18 at 12:30 Morphine Sulfate (Ms Contin (Er)) 15 mg BID PO Last administered on 08/07/18at 09:13; Admin Dose 15 MG; Start 08/04/18 at 13:30 Acetylcysteine (Nac) 1,200 mg BID PO Last administered on 08/07/18 09:12; Admin Dose 1,200 MG; Start 08/04/18 at 15:00; Stop 08/10/18 at 14:59 Sodium Chloride 1,000 ml @ 75 mls/hr [id number] IV Last administered on 08/06/18at 21:12; Admin Dose 75 MLS/HR; Start 08/04/18 at 14:00 Al Hydrox/Mg Hydrox/Simethicone (Mag-Al Plus) 30 ml Q4H PRN PO GASTROINTESTINAL UPSET Last administered on 08/05/18at 03:02; Admin Dose 30 ML; Start 08/05/18 at 03:00 Insulin Aspart (Novolog Insulin Pen) 5 unit WITH MEALS SC Last administered on 08/07/18at 12:50; Admin Dose 5 UNIT; Start 08/05/18 at 18:00 Insulin Glargine (Lantus) 12 units DAILY@2000 SC Last administered on 08/06/18at 21:09; Admin Dose 12 UNITS; Start 08/05/18 at 20:00 Tamsulosin HCl (Flomax) 0.4 mg BID PO ; Start 08/07/18 at 21:00 Ertapenem 1 gm/ Sodium Chloride 100 ml @ 200 mls/hr Q24H IVPB ; Start 08/07/18 at 14:00; Status UNV BELL WEEMS NP Aug 07, 2018 13:52
[2018-08-07 14:18] VITALS: BP 122/58; PULSE 94; RESP 16
[2018-08-07] MEDS: ERTAPENEM SODIUM 1 GM in SOD CHLORIDE 0.9% 100 ML IVPB SCH (14:34)
--- NOTE | 2018-08-07 14:34 | CONS ---
Assessment/Plan Assessment/Plan Assessment/Plan (Daily) 1. Hyponatremia. - Multifactorial due to Diuretic in the setting of CKD . 2. 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 Anemia of CKD II/III 4. Sepsis secondary to urinary tract infection, pyelonephritis 6. H/o Diabetes 7. H/o Dyslipidemia 8. H/o BPH 9. H/o Hypertension 10. H/o Chronic Neurogenic bladder 11. Diffuse pelvic lymphadenopathy with perirectal inguinal lymph nodes 12. acute UTI with Urine cx growing ESBL E coli. 13. Persistent left renal subcapsular hematoma s/p CT guided drainage of hematoma 08/06/18 Plan: - Na 134, K 4/ BUN/Cr 18.17, BP stable - still has hematuria - s/p CT guided drainage of left subcapsular hematoma on 08/06/18 - IV abx INvanz for ESBL EColi UTI, Renally dose all abx and monitor electrolytes - Amlodipine for BP control - will follow up Patient seen in collaboration with Dr Grullon Consultation Date/Type/Reason Admit Date/Time July 30, 2018 at 08:40 Initial Consult Date 08/04/18 Reason for Consultation CKD II/III Requesting Provider: SIMONE EDDY Date/Time of Note DATE: 08/07/18 TIME: 14:33 24 HR Interval Summary Free Text/Dictation - nad - resting ; seems comfortable - n events reported overnight - dw staff Detailed Summary Eyes: no complaints ENT: no complaints Respiratory: no complaints Gastrointestinal: no complaints Genitourinary: no complaints Musculoskeletal: other (geerellized wekness) Skin: no complaints Neurologic: no complaints Endocrine: no complaints Lymphatic: no complaints Psychological: nl mood/affect Exam/Review of Systems Exam Vitals Vital Signs Date Temp Pulse Resp B/P (MAP) Pulse Ox O2 O2 Flow FiO2 Time Delivery Rate 08/07/18 98.5 94 16 122/58 92 14:18 (79) 08/07/18 Nasal 2.0 02:49 Cannula Intake and Output 08/06/18 08/06/18 08/07/18 1515:00 23:00 07:00 IntakeIntake Total 1480 ml 606 ml OutputOutput Total 1500 ml 1400 ml BalanceBalance -1500 ml 80 ml 606 ml Constitutional: alert, well developed Psych: nl mood/affect Eyes: nl lids, nl sclera Neck: non-tender Respiratory: clear to auscultation Cardiovascular: nl pulses, other Gastrointestinal: soft, non-tender Musculoskeletal: muscle weakness Extremities: normal pulses Neurological: nl speech Lymph: nontender Results Result Diagram: 08/07/18 0659 08/07/18 0659 Results 24hrs Laboratory Tests Test 08/06/18 17:33 08/06/18 21:06 08/07/18 06:59 08/07/18 09:20 Bedside Glucose 147 101 73 White Blood Count 13.6 H Red Blood Count 3.07 L Hemoglobin 7.6 L Hematocrit 24.2 L Mean Corpuscular 78.8 L Volume Mean Corpuscular 24.8 L Hemoglobin Mean Corpuscular 31.4 L Hemoglobin Concent Red Cell Distribution 13.8 Width Platelet Count 447 H Mean Platelet Volume 8.3 Immature Granulocytes 0.600 H % Neutrophils % 69.5 Lymphocytes % 21.8 Monocytes % 6.2 Eosinophils % 1.6 Basophils % 0.3 Nucleated Red Blood 0.0 Cells % Immature Granulocytes 0.080 H # Neutrophils # 9.4 H Lymphocytes # 3.0 H Monocytes # 0.8 Eosinophils # 0.2 Basophils # 0.0 Nucleated Red Blood 0.0 Cells # Sodium Level 134 L Potassium Level 4.1 Chloride Level 105 Carbon Dioxide Level 23 Anion Gap 6 Blood Urea Nitrogen 18 Creatinine 1.17 Est Glomerular Filtrat > 60 Rate mL/min Glucose Level 69 #L Calcium Level 8.7 Phosphorus Level 3.9 Magnesium Level 1.9 Test 08/07/18 12:47 Bedside Glucose 91 Medications Medication Current Medications Aspirin (Halfprin) 81 mg DAILY PO Last administered on 08/07/18at 09:13; Admin Dose 81 MG; Start 07/30/18 at 09:00 Atorvastatin Calcium (Lipitor) 80 mg QHS PO Last administered on 08/06/18at 21:10; Admin Dose 80 MG; Start 07/29/18 at 21:00 Finasteride (Proscar) 5 mg DAILY PO Last administered on 08/07/18at 09:13; Admin Dose 5 MG; Start 07/30/18 at 09:00 IV Flush (NS 3 ml) 3 ml PER PROTOCOL IV ; Start 07/29/18 at 15:30 Ondansetron HCl (Zofran Inj) 4 mg Q6H PRN IV NAUSEA/VOMITING Last administered on 08/06/18 08:19; Admin Dose 4 MG; Start 07/29/18 at 15:30 Acetaminophen (Tylenol Tab) 650 mg Q6H PRN PO .PAIN 1-3 OR TEMP Last administered on 08/03/18 08:20; Admin Dose 650 MG; Start 07/29/18 at 15:30 Diagnostic Test (Pha) (Accu-Chek) 1 ea 02 XX ; Start 07/30/18 at 02:00 Insulin Aspart (Novolog Insulin Pen) NOVOLOG *MILD* ALGORITHM WITH MEALS BEDTIME SC Last administered on 08/06/18 17:42; Admin Dose 1 UNIT; Start 07/29/18 at 18:00 Miscellaneous Information 1 ea NOTE XX ; Start 07/29/18 at 16:00 Glucose (Glutose) 15 gm Q15M PRN PO DECREASED GLUCOSE; Start 07/29/18 at 16:00 Glucose (Glutose) 22.5 gm Q15M PRN PO DECREASED GLUCOSE; Start 07/29/18 at 16:00 Dextrose (D50w Syringe) 25 ml Q15M PRN IV DECREASED GLUCOSE; Start 07/29/18 at 16:00 Dextrose (D50w Syringe) 50 ml Q15M PRN IV DECREASED GLUCOSE; Start 07/29/18 at 16:00 Glucagon (Glucagen) 1 mg Q15M PRN IM DECREASED GLUCOSE; Start 07/29/18 at 16:00 Glucose (Glutose) 15 gm Q15M PRN BUCCAL DECREASED GLUCOSE; Start 07/29/18 at 16:00 Metoclopramide HCl (Reglan) 5 mg Q6H PRN IV nausea Last administered on 07/30/18at 17:44; Admin Dose 5 MG; Start 07/30/18 at 14:30 Gabapentin (Neurontin) 300 mg TID PO Last administered on 08/07/18 14:27; Admin Dose 300 MG; Start 07/30/18 at 23:00 Phenazopyridine HCl (Pyridium) 200 mg TID PO Last administered on 08/07/18 14:28; Admin Dose 200 MG; Start 08/02/18 at 13:00 Amlodipine Besylate (Norvasc) 10 mg DAILY PO Last administered on 08/07/18at 09:12; Admin Dose 10 MG; Start 08/03/18 at 09:00 Hydromorphone HCl (Dilaudid) 0.5 mg Q6H PRN IV SEVERE PAIN LEVEL 7-10 Last administered on 08/07/18 14:28; Admin Dose 0.5 MG; Start 08/02/18 at 12:30 Morphine Sulfate (Ms Contin (Er)) 15 mg BID PO Last administered on 08/07/18 09:13; Admin Dose 15 MG; Start 08/04/18 at 13:30 Acetylcysteine (Nac) 1,200 mg BID PO Last administered on 08/07/18 09:12; Admin Dose 1,200 MG; Start 08/04/18 at 15:00; Stop 08/10/18 at 14:59 Al Hydrox/Mg Hydrox/Simethicone (Mag-Al Plus) 30 ml Q4H PRN PO GASTROINTESTINAL UPSET Last administered on 08/05/18 03:02; Admin Dose 30 ML; Start 08/05/18 at 03:00 Insulin Aspart (Novolog Insulin Pen) 5 unit WITH MEALS SC Last administered on 08/07/18at 12:50; Admin Dose 5 UNIT; Start 08/05/18 at 18:00 Insulin Glargine (Lantus) 12 units DAILY@2000 SC Last administered on 08/06/18 21:09; Admin Dose 12 UNITS; Start 08/05/18 at 20:00 Tamsulosin HCl (Flomax) 0.4 mg BID PO ; Start 08/07/18 at 21:00 Ertapenem 1 gm/ Sodium Chloride 100 ml @ 200 mls/hr Q24H IVPB ; Start 08/07/18 at 15:30 MK RANDALL Aug 07, 2018 14:34
--- NOTE | 2018-08-07 16:24 | CONS ---
Consult Date/Type/Reason Admit Date/Time July 30, 2018 at 08:40 Initial Consult Date 08/04/18 Type of Consultation: Urology Reason for Consultation Right renal subdural hematoma. Requesting Provider: SIMONE EDDY Date/Time of Note DATE: 08/07/18 TIME: 16:22 Subjective Patient states that he has pain but he points to his chest as the area of the pain Objective Vitals Vital Signs Date Temp Pulse Resp B/P (MAP) Pulse Ox O2 O2 Flow FiO2 Time Delivery Rate 08/07/18 98.5 94 16 122/58 92 14:18 (79) 08/07/18 Nasal 2.0 02:49 Cannula Intake and Output 08/06/18 08/06/18 08/07/18 1515:00 23:00 07:00 IntakeIntake Total 1480 ml 606 ml OutputOutput Total 1500 ml 1400 ml BalanceBalance -1500 ml 80 ml 606 ml Exam The abdomen is soft. His Ryan catheter is draining clear urine. Results/Medications Result Diagram: 08/07/18 0659 08/07/18 0659 Results 24 hrs Laboratory Tests Test 08/06/18 17:33 08/06/18 21:06 08/07/18 06:59 08/07/18 09:20 Bedside Glucose 147 101 73 White Blood Count 13.6 H Red Blood Count 3.07 L Hemoglobin 7.6 L Hematocrit 24.2 L Mean Corpuscular 78.8 L Volume Mean Corpuscular 24.8 L Hemoglobin Mean Corpuscular 31.4 L Hemoglobin Concent Red Cell Distribution 13.8 Width Platelet Count 447 H Mean Platelet Volume 8.3 Immature Granulocytes 0.600 H % Neutrophils % 69.5 Lymphocytes % 21.8 Monocytes % 6.2 Eosinophils % 1.6 Basophils % 0.3 Nucleated Red Blood 0.0 Cells % Immature Granulocytes 0.080 H # Neutrophils # 9.4 H Lymphocytes # 3.0 H Monocytes # 0.8 Eosinophils # 0.2 Basophils # 0.0 Nucleated Red Blood 0.0 Cells # Sodium Level 134 L Potassium Level 4.1 Chloride Level 105 Carbon Dioxide Level 23 Anion Gap 6 Blood Urea Nitrogen 18 Creatinine 1.17 Est Glomerular Filtrat > 60 Rate mL/min Glucose Level 69 #L Calcium Level 8.7 Phosphorus Level 3.9 Magnesium Level 1.9 Test 08/07/18 12:47 Bedside Glucose 91 Home Meds Reported Medications Mirtazapine* (Remeron*) Unknown Strength Tablet, 1 TAB PO HS, TAB 07/29/18 Tamsulosin Hcl* (Flomax*) 0.4 Mg Cap.er.24h, 0.4 MG PO HS, CAP 07/29/18 Atorvastatin* (Atorvastatin*) 80 Mg Tablet, 80 MG PO QHS, #30 TAB 07/29/18 Gabapentin* (Gabapentin*) 300 Mg Capsule, 300 MG PO DAILY, #60 CAP 07/29/18 Finasteride* (Finasteride*) 5 Mg Tablet, 5 MG PO DAILY, TAB 07/29/18 Aspirin* (Aspirin* EC) 81 Mg Tablet.dr, 81 MG PO DAILY, TAB 07/29/18 Lisinopril/Hydrochlorothiazide (Lisinopril-Hctz 20-12.5 mg Tab) 1 Each Tablet, 1 EACH PO BID, TAB 07/29/18 Medications Current Medications Aspirin (Halfprin) 81 mg DAILY PO Last administered on 08/07/18at 09:13; Admin Dose 81 MG; Start 07/30/18 at 09:00 Atorvastatin Calcium (Lipitor) 80 mg QHS PO Last administered on 08/06/18at 21:10; Admin Dose 80 MG; Start 07/29/18 at 21:00 Finasteride (Proscar) 5 mg DAILY PO Last administered on 08/07/18at 09:13; Admin Dose 5 MG; Start 07/30/18 at 09:00 IV Flush (NS 3 ml) 3 ml PER PROTOCOL IV ; Start 07/29/18 at 15:30 Ondansetron HCl (Zofran Inj) 4 mg Q6H PRN IV NAUSEA/VOMITING Last administered on 08/06/18at 08:19; Admin Dose 4 MG; Start 07/29/18 at 15:30 Acetaminophen (Tylenol Tab) 650 mg Q6H PRN PO .PAIN 1-3 OR TEMP Last administered on 08/03/18at 08:20; Admin Dose 650 MG; Start 07/29/18 at 15:30 Diagnostic Test (Pha) (Accu-Chek) 1 ea 02 XX ; Start 07/30/18 at 02:00 Insulin Aspart (Novolog Insulin Pen) NOVOLOG *MILD* ALGORITHM WITH MEALS BEDTIME SC Last administered on 08/06/18at 17:42; Admin Dose 1 UNIT; Start 07/29/18 at 18:00 Miscellaneous Information 1 ea NOTE XX ; Start 07/29/18 at 16:00 Glucose (Glutose) 15 gm Q15M PRN PO DECREASED GLUCOSE; Start 07/29/18 at 16:00 Glucose (Glutose) 22.5 gm Q15M PRN PO DECREASED GLUCOSE; Start 07/29/18 at 16: 00 Dextrose (D50w Syringe) 25 ml Q15M PRN IV DECREASED GLUCOSE; Start 07/29/18 at 16:00 Dextrose (D50w Syringe) 50 ml Q15M PRN IV DECREASED GLUCOSE; Start 07/29/18 at 16:00 Glucagon (Glucagen) 1 mg Q15M PRN IM DECREASED GLUCOSE; Start 07/29/18 at 16:00 Glucose (Glutose) 15 gm Q15M PRN BUCCAL DECREASED GLUCOSE; Start 07/29/18 at 16:00 Metoclopramide HCl (Reglan) 5 mg Q6H PRN IV nausea Last administered on 07/30/18at 17:44; Admin Dose 5 MG; Start 07/30/18 at 14:30 Gabapentin (Neurontin) 300 mg TID PO Last administered on 08/07/18 14:27; Admin Dose 300 MG; Start 07/30/18 at 23:00 Phenazopyridine HCl (Pyridium) 200 mg TID PO Last administered on 08/07/18 14:28; Admin Dose 200 MG; Start 08/02/18 at 13:00 Amlodipine Besylate (Norvasc) 10 mg DAILY PO Last administered on 08/07/18 09:12; Admin Dose 10 MG; Start 08/03/18 at 09:00 Hydromorphone HCl (Dilaudid) 0.5 mg Q6H PRN IV SEVERE PAIN LEVEL 7-10 Last administered on 08/07/18 14:28; Admin Dose 0.5 MG; Start 08/02/18 at 12:30 Morphine Sulfate (Ms Contin (Er)) 15 mg BID PO Last administered on 08/07/18 09:13; Admin Dose 15 MG; Start 08/04/18 at 13:30 Acetylcysteine (Nac) 1,200 mg BID PO Last administered on 08/07/18 09:12; Admin Dose 1,200 MG; Start 08/04/18 at 15:00; Stop 08/10/18 at 14:59 Al Hydrox/Mg Hydrox/Simethicone (Mag-Al Plus) 30 ml Q4H PRN PO GASTROINTESTINAL UPSET Last administered on 08/05/18at 03:02; Admin Dose 30 ML; Start 08/05/18 at 03:00 Insulin Aspart (Novolog Insulin Pen) 5 unit WITH MEALS SC Last administered on 08/07/18at 12:50; Admin Dose 5 UNIT; Start 08/05/18 at 18:00 Insulin Glargine (Lantus) 12 units DAILY@2000 SC Last administered on 08/06/18at 21:09; Admin Dose 12 UNITS; Start 08/05/18 at 20:00 Tamsulosin HCl (Flomax) 0.4 mg BID PO ; Start 08/07/18 at 21:00 Ertapenem 1 gm/ Sodium Chloride 100 ml @ 200 mls/hr Q24H IVPB Last administered on 08/07/18at 14:34; Admin Dose 200 MLS/HR; Start 08/07/18 at 15:30 Assessment/Plan Hospital Course (Demo Recall) 63-year-old male has a long-standing history of diabetes, chronic kidney disease, hypertension, BPH, and urinary tract infection causing sepsis requiring multiple hospitalization was sent by his primary care physician to the emergency room because he was found to have bad infection in his urine. Patient has been having fever and chills over 2 days prior to admission. He denied dysuria, hematuria, urinary frequency, urgency, dribbling, nocturia. He underwent CT scan of the abdomen and pelvis and that showed: 1. Although there has been interval decrease in density of the right subcapsular hematoma, overall the size of the subcapsular collection has been slightly increased. 2. Interval increase in the low to intermediate density perinephric fluid collection posterior and inferior to the right kidney. 3. Single focus of air is seen within the subcapsular collection which is nonspecific. Additional foci of air seen within the perinephric fluid collection. Clinical correlation with possible developing abscess is recommended. 4. Small amount of linear fluid collection outside of the Gerota's fascia extending posteriorly and inferiorly along the right paracolic gutter which is new compared to prior study. 5. Near complete resolution of the bilateral pleural effusions. 6. Persistent hepatosplenomegaly with diffuse hepatic steatosis. 7. Persistent subcentimeter retroperitoneal and mesenteric lymph nodes. A urological consultation was therefore requested I reviewed the CT scan with the radiologist and had the CT scan repeated with IV contrast and that showed: Urinary: Stable subcapsular fluid collection with heterogeneous hyperdensity at the posterior right kidney measuring 8.6 x 6.7 x 11.2 cm, better characterized on this exam with IV contrast, but unchanged in size in comparison to prior exam. There is stable extension of the fluid into the pararenal space with multiloculated fluid and scattered small foci of air; the largest component measures approximately 7.6 x 3.4 cm. Stable extension along the anterior Gerota's fascia and pericolic gutter with peripheral enhancement; the largest component along the pericolic gutter measures approximately 4.1 x 2.5 cm. Increased mild fullness/hydronephrosis of the left renal collecting system and dilation of the left ureter. Interval increased distension of the bladder, again seen with mild irregular wall thickening. The bladder is distended and when I looked at the CT scan I put the order for the nurse to insert the Ryan catheter for him but he refused. When I came in this evening I talked to him and explained to him the reason for the catheter and made him feel his bladder distended up to his umbilicus he then accepted to have the catheter and I inserted a 16 Ukrainian and 1500 mL drained. He then did acknowledge he was doing self intermittent catheterization about an year ago. He did it for 2 weeks and then stopped. I advised him that he needs to do it again and keep doing it to prevent the urinary retention and the hydronephrosis and further damage to his renal function. The subcapsular hematoma has been drained and the culture from it showing gram- negative rods. Plan is to continue the antibiotic.. And keep the Ryan catheter in place and he may have to resume doing his self-catheterization. AMI BURTON MD Aug 07, 2018 16:24
[2018-08-07 20:00] VITALS: BP 132/60; PULSE 80; RESP 18
[2018-08-07] MEDS: INSULIN GLARGINE [LANTus] (100 UNITS/ML) SYG SC SCH (20:26)
[2018-08-07] MEDS: TAMSULOSIN (SR) 0.4 MG CAP PO SCH (20:28)
[2018-08-07] MEDS: ATORVASTATIN 80 MG TAB PO SCH (20:28)
[2018-08-08 02:00] VITALS: BP 117/59; PULSE 85; RESP 18
[2018-08-08] MEDS: ACCU-CHEK XX SCH (02:00)
[2018-08-08] MEDS: HYDROmorphONE 0.5 MG/0.5 ML SYG IV PRN ×2 (05:20→19:58)
[2018-08-08] MEDS: INSULIN ASPART [NOVOLOG] 3 ML PEN SC SCH ×7 (08:00→21:00)
[2018-08-08 08:26] VITALS: BP 134/65; PULSE 74; RESP 16
[2018-08-08] MEDS: PHENAZOPYRIDINE 200 MG TAB PO SCH ×3 (08:43→21:05)
[2018-08-08] MEDS: FINASTERIDE 5 MG TAB PO SCH (08:44)
[2018-08-08] MEDS: GABAPENTIN 300 MG CAP PO SCH (08:44)
[2018-08-08] MEDS: morphine (ER) 15 MG TAB PO SCH ×2 (08:44→21:06)
[2018-08-08] MEDS: TAMSULOSIN (SR) 0.4 MG CAP PO SCH ×2 (08:44→21:06)
[2018-08-08] MEDS: ACETYLCYSTEINE 600 MG CAP PO SCH ×2 (08:44→21:06)
[2018-08-08] MEDS: AMLODIPINE 10 MG TAB PO SCH (08:44)
[2018-08-08] MEDS: ASPIRIN (EC) 81 MG TAB PO SCH (08:44)
[2018-08-08] MEDS: ONDANSETRON 4 MG INJ IV PRN (08:45)
--- NOTE | 2018-08-08 08:56 | PN ---
Date/Time of Note Date/Time of Note DATE: 08/08/18 TIME: 08:53 Assessment/Plan VTE Prophylaxis Risk score (from [facility] [place]0 risk: 3 SCD applied (from [facility] [place]): No SCD contraindicated: low risk/ambulating Pharmacological prophylaxis: heparin Pharm contraindication: low risk/ambulating Lines/Catheters IV Catheter Type (from [facility] Mid Line Urinary Cath still in place: Yes Reason Cath still needed: urinary retention Assessment/Plan Problems: (1) UTI due to extended-spectrum beta lactamase (ESBL) producing Escherichia coli Status: Acute Comment: Remains on antibiotics. Regrettably it looks like the perinephric fluid collection may also be infected which is going to create another set of issues. (2) Hematoma of right kidney Status: Acute Comment: Initial fluid is growing gram-negative rods. We do not have the final to know if it is the same E. coli ESBL yet. If this is this is going to be somewhat tricky her to deal with. Urology and ID are already involved Qualifiers: Encounter type: initial encounter Qualified Codes: S37.011A - Minor contusion of right kidney, initial encounter (3) Diabetes mellitus type 2 in nonobese Status: Chronic Comment: Adequate glycemic control (4) Essential hypertension Status: Chronic Comment: Adequate control blood pressure (5) Hyperlipidemia associated with type 2 diabetes mellitus Status: Chronic Comment: Stable on statin therapy (6) BPH w urinary obs/LUTS Status: Chronic Comment: On full dose treatment but has Ryan catheter in and will undoubtedly need self-catheterization at eventual discharge Result Diagram: 08/07/18 0659 08/07/18 0659 Results 24hrs Laboratory Tests Test 08/07/18 09:20 08/07/18 12:47 08/07/18 18:07 08/07/18 20:23 Bedside Glucose 73 91 116 144 Subjective 24 Hr Interval Summary Free Text/Dictation Patient reports that since he has been on the gabapentin shortly after taking it he gets some interesting visual scenes. Constitutional: no complaints (Denies fevers chills or sweats) Respiratory: no complaints Gastrointestinal: no complaints Genitourinary: flank pain Exam/Review of Systems Exam Vitals Vital Signs Date Temp Pulse Resp B/P (MAP) Pulse Ox O2 O2 Flow FiO2 Time Delivery Rate 08/08/18 97.6 74 16 134/65 97 08:26 (88) 08/07/18 Nasal 2.0 02:49 Cannula Intake and Output 08/07/18 08/07/18 08/08/18 1515:00 23:00 07:00 IntakeIntake Total 920 ml 420 ml 240 ml OutputOutput Total 1700 ml 700 ml 900 ml BalanceBalance -780 ml -280 ml -660 ml Constitutional: alert, oriented Neck: supple, non-tender Respiratory: clear to auscultation, normal air movement Cardiovascular: regular rate and rhythm, nl pulses Gastrointestinal: soft, nl liver, spleen, non-tender Genitourinary - Male: other (Ryan catheter in place) Results Results 24hrs Laboratory Tests Test 08/07/18 09:20 08/07/18 12:47 08/07/18 18:07 08/07/18 20:23 Bedside Glucose 73 91 116 144 Medications Medication Current Medications Aspirin (Halfprin) 81 mg DAILY PO Last administered on 08/08/18 08:44; Admin Dose 81 MG; Start 07/30/18 at 09:00 Atorvastatin Calcium (Lipitor) 80 mg QHS PO Last administered on 08/07/18 20:28; Admin Dose 80 MG; Start 07/29/18 at 21:00 Finasteride (Proscar) 5 mg DAILY PO Last administered on 08/08/18 08:44; Admin Dose 5 MG; Start 07/30/18 at 09:00 IV Flush (NS 3 ml) 3 ml PER PROTOCOL IV ; Start 07/29/18 at 15:30 Ondansetron HCl (Zofran Inj) 4 mg Q6H PRN IV NAUSEA/VOMITING Last administered on 08/08/18 08:45; Admin Dose 4 MG; Start 07/29/18 at 15:30 Acetaminophen (Tylenol Tab) 650 mg Q6H PRN PO .PAIN 1-3 OR TEMP Last administered on 08/03/18 08:20; Admin Dose 650 MG; Start 07/29/18 at 15:30 Diagnostic Test (Pha) (Accu-Chek) 1 ea 02 XX ; Start 07/30/18 at 02:00 Insulin Aspart (Novolog Insulin Pen) NOVOLOG *MILD* ALGORITHM WITH MEALS BEDTIME SC Last administered on 08/06/18 17:42; Admin Dose 1 UNIT; Start 07/29/18 at 18:00 Miscellaneous Information 1 ea NOTE XX ; Start 07/29/18 at 16:00 Glucose (Glutose) 15 gm Q15M PRN PO DECREASED GLUCOSE; Start 07/29/18 at 16:00 Glucose (Glutose) 22.5 gm Q15M PRN PO DECREASED GLUCOSE; Start 07/29/18 at 16:00 Dextrose (D50w Syringe) 25 ml Q15M PRN IV DECREASED GLUCOSE; Start 07/29/18 at 16:00 Dextrose (D50w Syringe) 50 ml Q15M PRN IV DECREASED GLUCOSE; Start 07/29/18 at 16:00 Glucagon (Glucagen) 1 mg Q15M PRN IM DECREASED GLUCOSE; Start 07/29/18 at 16:00 Glucose (Glutose) 15 gm Q15M PRN BUCCAL DECREASED GLUCOSE; Start 07/29/18 at 16:00 Metoclopramide HCl (Reglan) 5 mg Q6H PRN IV nausea Last administered on 07/30/18 17:44; Admin Dose 5 MG; Start 07/30/18 at 14:30 Gabapentin (Neurontin) 300 mg TID PO Last administered on 08/08/18 08:44; Admin Dose 300 MG; Start 07/30/18 at 23:00 Phenazopyridine HCl (Pyridium) 200 mg TID PO Last administered on 08/08/18 08:43; Admin Dose 200 MG; Start 08/02/18 at 13:00 Amlodipine Besylate (Norvasc) 10 mg DAILY PO Last administered on 08/08/18 08:44; Admin Dose 10 MG; Start 08/03/18 at 09:00 Hydromorphone HCl (Dilaudid) 0.5 mg Q6H PRN IV SEVERE PAIN LEVEL 7-10 Last administered on 08/08/18 05:20; Admin Dose 0.5 MG; Start 08/02/18 at 12:30 Morphine Sulfate (Ms Contin (Er)) 15 mg BID PO Last administered on 08/08/18 08:44; Admin Dose 15 MG; Start 08/04/18 at 13:30 Acetylcysteine (Nac) 1,200 mg BID PO Last administered on 08/08/18 08:44; Admin Dose 1,200 MG; Start 08/04/18 at 15:00; Stop 08/10/18 at 14:59 Al Hydrox/Mg Hydrox/Simethicone (Mag-Al Plus) 30 ml Q4H PRN PO GASTROINTESTINAL UPSET Last administered on 08/05/18 03:02; Admin Dose 30 ML; Start 08/05/18 at 03:00 Insulin Aspart (Novolog Insulin Pen) 5 unit WITH MEALS SC Last administered on 08/08/18 08:46; Admin Dose 5 UNIT; Start 08/05/18 at 18:00 Insulin Glargine (Lantus) 12 units DAILY@2000 SC Last administered on 08/07/18at 20:26; Admin Dose 12 UNITS; Start 08/05/18 at 20:00 Tamsulosin HCl (Flomax) 0.4 mg BID PO Last administered on 08/08/18at 08:44; Admin Dose 0.4 MG; Start 08/07/18 at 21:00 Ertapenem 1 gm/ Sodium Chloride 100 ml @ 200 mls/hr Q24H IVPB Last administered on 08/07/18at 14:34; Admin Dose 200 MLS/HR; Start 08/07/18 at 15:30 Epoetin Tunde-epbx (Retacrit (Non-Esrd)) 10,000 unit ONCE ONCE SC ; Start 08/08/18 at 10:00; Stop 08/08/18 at 10:01 JEAN TRAYLOR MD Aug 08, 2018 08:56
--- NOTE | 2018-08-08 09:52 | CONS ---
Assessment/Plan Assessment/Plan Assessment/Plan (Daily) 1. Hyponatremia. - Multifactorial due to Diuretic in the setting of CKD . 2. 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 Anemia of CKD II/III 4. Sepsis secondary to urinary tract infection, pyelonephritis 6. H/o Diabetes 7. H/o Dyslipidemia 8. H/o BPH 9. H/o Hypertension 10. H/o Chronic Neurogenic bladder 11. Diffuse pelvic lymphadenopathy with perirectal inguinal lymph nodes 12. acute UTI with Urine cx growing ESBL E coli. 13. Persistent left renal subcapsular hematoma s/p CT guided drainage of hematoma 08/06/18 Plan: - Na 134, K 4/ BUN/Cr 18/1.17, BP stable - still has hematuria - s/p CT guided drainage of left subcapsular hematoma on 08/06/18 - IV abx INvanz for ESBL EColi UTI, Renally dose all abx and monitor electrolytes - Amlodipine for BP control - will follow up Patient seen in collaboration with Dr Nivia Matta. dw staff Consultation Date/Type/Reason Admit Date/Time July 30, 2018 at 08:40 Initial Consult Date 08/04/18 Requesting Provider: SIMONE EDDY Date/Time of Note DATE: 08/08/18 TIME: 09:49 Exam/Review of Systems Exam Vitals Vital Signs Date Temp Pulse Resp B/P (MAP) Pulse Ox O2 O2 Flow FiO2 Time Delivery Rate 08/08/18 97.6 74 16 134/65 97 08:26 (88) 08/07/18 Nasal 2.0 02:49 Cannula Intake and Output 08/07/18 08/07/18 08/08/18 1515:00 23:00 07:00 IntakeIntake Total 920 ml 420 ml 240 ml OutputOutput Total 1700 ml 700 ml 900 ml BalanceBalance -780 ml -280 ml -660 ml Constitutional: alert, well developed Psych: nl mood/affect Head: normocephalic Eyes: nl lids, nl sclera ENMT: nl external ears & nose Neck: non-tender Respiratory: clear to auscultation Cardiovascular: nl pulses, other Gastrointestinal: soft Musculoskeletal: muscle weakness Extremities: normal pulses Neurological: nl speech Skin: nl turgor Lymph: nontender Results Result Diagram: 08/07/18 0659 08/07/18 0659 Results 24hrs Laboratory Tests Test 08/07/18 12:47 08/07/18 18:07 08/07/18 20:23 08/08/18 08:42 Bedside Glucose 91 116 144 106 Medications Medication Current Medications Aspirin (Halfprin) 81 mg DAILY PO Last administered on 08/08/18 08:44; Admin Dose 81 MG; Start 07/30/18 at 09:00 Atorvastatin Calcium (Lipitor) 80 mg QHS PO Last administered on 08/07/18 20:28; Admin Dose 80 MG; Start 07/29/18 at 21:00 Finasteride (Proscar) 5 mg DAILY PO Last administered on 08/08/18 08:44; Admin Dose 5 MG; Start 07/30/18 at 09:00 IV Flush (NS 3 ml) 3 ml PER PROTOCOL IV ; Start 07/29/18 at 15:30 Ondansetron HCl (Zofran Inj) 4 mg Q6H PRN IV NAUSEA/VOMITING Last administered on 08/08/18 08:45; Admin Dose 4 MG; Start 07/29/18 at 15:30 Acetaminophen (Tylenol Tab) 650 mg Q6H PRN PO .PAIN 1-3 OR TEMP Last administered on 08/03/18 08:20; Admin Dose 650 MG; Start 07/29/18 at 15:30 Diagnostic Test (Pha) (Accu-Chek) 1 ea 02 XX ; Start 07/30/18 at 02:00 Insulin Aspart (Novolog Insulin Pen) NOVOLOG *MILD* ALGORITHM WITH MEALS BEDTIME SC Last administered on 08/06/18 17:42; Admin Dose 1 UNIT; Start 07/29/18 at 18:00 Miscellaneous Information 1 ea NOTE XX ; Start 07/29/18 at 16:00 Glucose (Glutose) 15 gm Q15M PRN PO DECREASED GLUCOSE; Start 07/29/18 at 16:00 Glucose (Glutose) 22.5 gm Q15M PRN PO DECREASED GLUCOSE; Start 07/29/18 at 16:00 Dextrose (D50w Syringe) 25 ml Q15M PRN IV DECREASED GLUCOSE; Start 07/29/18 at 16:00 Dextrose (D50w Syringe) 50 ml Q15M PRN IV DECREASED GLUCOSE; Start 07/29/18 at 16:00 Glucagon (Glucagen) 1 mg Q15M PRN IM DECREASED GLUCOSE; Start 07/29/18 at 16:00 Glucose (Glutose) 15 gm Q15M PRN BUCCAL DECREASED GLUCOSE; Start 07/29/18 at 16:00 Metoclopramide HCl (Reglan) 5 mg Q6H PRN IV nausea Last administered on 07/30/18 17:44; Admin Dose 5 MG; Start 07/30/18 at 14:30 Phenazopyridine HCl (Pyridium) 200 mg TID PO Last administered on 08/08/18 08:43; Admin Dose 200 MG; Start 08/02/18 at 13:00 Amlodipine Besylate (Norvasc) 10 mg DAILY PO Last administered on 08/08/18 08: 44; Admin Dose 10 MG; Start 08/03/18 at 09:00 Hydromorphone HCl (Dilaudid) 0.5 mg Q6H PRN IV SEVERE PAIN LEVEL 7-10 Last administered on 08/08/18 05:20; Admin Dose 0.5 MG; Start 08/02/18 at 12:30 Morphine Sulfate (Ms Contin (Er)) 15 mg BID PO Last administered on 08/08/18 08:44; Admin Dose 15 MG; Start 08/04/18 at 13:30 Acetylcysteine (Nac) 1,200 mg BID PO Last administered on 08/08/18 08:44; Admin Dose 1,200 MG; Start 08/04/18 at 15:00; Stop 08/10/18 at 14:59 Al Hydrox/Mg Hydrox/Simethicone (Mag-Al Plus) 30 ml Q4H PRN PO GASTROINTESTINAL UPSET Last administered on 08/05/18 03:02; Admin Dose 30 ML; Start 08/05/18 at 03:00 Insulin Aspart (Novolog Insulin Pen) 5 unit WITH MEALS SC Last administered on 08/08/18 08:46; Admin Dose 5 UNIT; Start 08/05/18 at 18:00 Insulin Glargine (Lantus) 12 units DAILY@2000 SC Last administered on 08/07/18 20:26; Admin Dose 12 UNITS; Start 08/05/18 at 20:00 Tamsulosin HCl (Flomax) 0.4 mg BID PO Last administered on 08/08/18 08:44; Admin Dose 0.4 MG; Start 08/07/18 at 21:00 Ertapenem 1 gm/ Sodium Chloride 100 ml @ 200 mls/hr Q24H IVPB Last adminis tered on 08/07/18at 14:34; Admin Dose 200 MLS/HR; Start 08/07/18 at 15:30 Epoetin Tunde-epbx (Retacrit (Non-Esrd)) 10,000 unit ONCE ONCE SC ; Start 08/08/18 at 10:00; Stop 08/08/18 at 10:01 Gabapentin (Neurontin) 100 mg AC BREAKFAST DINNER PO ; Start 08/08/18 at 17:30 Gabapentin (Neurontin) 600 mg QHS PO ; Start 08/08/18 at 21:00 MK RANDALL Aug 08, 2018 09:52
[2018-08-08] MEDS ORDERED: EPOETIN ALFA-EPBX (NON-ESRD 10,000 UNIT/ML VIAL SC ONE (10:00)
--- NOTE | 2018-08-08 14:33 | CONS ---
Assessment/Plan Assessment/Plan Hospital Course (Demo Recall) No acute changes alert, feels okay no fevers overnight Antimicrobials: Invanz Microbiology: Urine culture on admission grew E. coli ESBL, aspirated fluid cultures positive for E. coli ESBL Physical examination: Well-developed elderly man who is in no distress. Head atraumatic normocephalic neck is supple chest rise symmetrical breath sounds diminished bases. Heart: S1-S2 abdomen soft bowel sounds present Assessment: 1. E. coli ESBL UTI 2. BPH/retention, s/p Ryan 3. Diabetes 4. Anemia 5. Status post infected right subcapsular hematoma drainage Plan: Patient remains stable, continue abx, will f/u urology recommendations and pathology Consultation Date/Type/Reason Admit Date/Time July 30, 2018 at 08:40 Initial Consult Date 08/02/18 Type of Consult id Requesting Provider: SIMONE EDDY Date/Time of Note DATE: 08/08/18 TIME: 14:32 Exam/Review of Systems Exam Vitals Vital Signs Date Temp Pulse Resp B/P (MAP) Pulse Ox O2 O2 Flow FiO2 Time Delivery Rate 08/08/18 97.6 74 16 134/65 97 08:26 (88) 08/07/18 Nasal 2.0 02:49 Cannula Intake and Output 08/07/18 08/07/18 08/08/18 1515:00 23:00 07:00 IntakeIntake Total 920 ml 420 ml 240 ml OutputOutput Total 1700 ml 700 ml 900 ml BalanceBalance -780 ml -280 ml -660 ml Results Result Diagram: 08/07/18 0659 08/07/18 0659 Results 24hrs Laboratory Tests Test 08/07/18 18:07 08/07/18 20:23 08/08/18 08:42 08/08/18 09:13 Bedside Glucose 116 144 106 Iron Level 19 L Total Iron Binding 163 L Capacity Percent Iron Saturation 12 L Test 08/08/18 12:57 Bedside Glucose 163 Medications Medication Current Medications Aspirin (Halfprin) 81 mg DAILY PO Last administered on 08/08/18at 08:44; Admin Dose 81 MG; Start 07/30/18 at 09:00 Atorvastatin Calcium (Lipitor) 80 mg QHS PO Last administered on 08/07/18at 20:28; Admin Dose 80 MG; Start 07/29/18 at 21:00 Finasteride (Proscar) 5 mg DAILY PO Last administered on 08/08/18 08:44; Admin Dose 5 MG; Start 07/30/18 at 09:00 IV Flush (NS 3 ml) 3 ml PER PROTOCOL IV ; Start 07/29/18 at 15:30 Ondansetron HCl (Zofran Inj) 4 mg Q6H PRN IV NAUSEA/VOMITING Last administered on 08/08/18 08:45; Admin Dose 4 MG; Start 07/29/18 at 15:30 Acetaminophen (Tylenol Tab) 650 mg Q6H PRN PO .PAIN 1-3 OR TEMP Last administered on 08/03/18 08:20; Admin Dose 650 MG; Start 07/29/18 at 15:30 Diagnostic Test (Pha) (Accu-Chek) 1 ea 02 XX ; Start 07/30/18 at 02:00 Insulin Aspart (Novolog Insulin Pen) NOVOLOG *MILD* ALGORITHM WITH MEALS BE DTIME SC Last administered on 08/08/18 13:01; Admin Dose 1 UNIT; Start 07/29/18 at 18:00 Miscellaneous Information 1 ea NOTE XX ; Start 07/29/18 at 16:00 Glucose (Glutose) 15 gm Q15M PRN PO DECREASED GLUCOSE; Start 07/29/18 at 16:00 Glucose (Glutose) 22.5 gm Q15M PRN PO DECREASED GLUCOSE; Start 07/29/18 at 16:00 Dextrose (D50w Syringe) 25 ml Q15M PRN IV DECREASED GLUCOSE; Start 07/29/18 at 16:00 Dextrose (D50w Syringe) 50 ml Q15M PRN IV DECREASED GLUCOSE; Start 07/29/18 at 16:00 Glucagon (Glucagen) 1 mg Q15M PRN IM DECREASED GLUCOSE; Start 07/29/18 at 16:00 Glucose (Glutose) 15 gm Q15M PRN BUCCAL DECREASED GLUCOSE; Start 07/29/18 at 16:00 Metoclopramide HCl (Reglan) 5 mg Q6H PRN IV nausea Last administered on 07/30/18at 17:44; Admin Dose 5 MG; Start 07/30/18 at 14:30 Phenazopyridine HCl (Pyridium) 200 mg TID PO Last administered on 08/08/18 08:43; Admin Dose 200 MG; Start 08/02/18 at 13:00 Amlodipine Besylate (Norvasc) 10 mg DAILY PO Last administered on 08/08/18 08:44; Admin Dose 10 MG; Start 08/03/18 at 09:00 Hydromorphone HCl (Dilaudid) 0.5 mg Q6H PRN IV SEVERE PAIN LEVEL 7-10 Last administered on 08/08/18 05:20; Admin Dose 0.5 MG; Start 08/02/18 at 12:30 Morphine Sulfate (Ms Contin (Er)) 15 mg BID PO Last administered on 08/08/18 08:44; Admin Dose 15 MG; Start 08/04/18 at 13:30 Acetylcysteine (Nac) 1,200 mg BID PO Last administered on 08/08/18 08:44; Admin Dose 1,200 MG; Start 08/04/18 at 15:00; Stop 08/10/18 at 14:59 Al Hydrox/Mg Hydrox/Simethicone (Mag-Al Plus) 30 ml Q4H PRN PO GASTROINTESTINAL UPSET Last administered on 08/05/18 03:02; Admin Dose 30 ML; Start 08/05/18 at 03:00 Insulin Aspart (Novolog Insulin Pen) 5 unit WITH MEALS SC Last administered on 08/08/18 13:02; Admin Dose 5 UNIT; Start 08/05/18 at 18:00 Insulin Glargine (Lantus) 12 units DAILY@2000 SC Last administered on 08/07/18 20:26; Admin Dose 12 UNITS; Start 08/05/18 at 20:00 Tamsulosin HCl (Flomax) 0.4 mg BID PO Last administered on 08/08/18 08:44; Admin Dose 0.4 MG; Start 08/07/18 at 21:00 Ertapenem 1 gm/ Sodium Chloride 100 ml @ 200 mls/hr Q24H IVPB Last administered on 08/07/18 14:34; Admin Dose 200 MLS/HR; Start 08/07/18 at 15:30 Gabapentin (Neurontin) 100 mg AC BREAKFAST DINNER PO ; Start 08/08/18 at 17:30 Gabapentin (Neurontin) 600 mg QHS PO ; Start 08/08/18 at 21:00 BELL WEEMS NP Aug 08, 2018 14:33
[2018-08-08] MEDS: ERTAPENEM SODIUM 1 GM in SOD CHLORIDE 0.9% 100 ML IVPB SCH (15:42)
[2018-08-08 15:56] VITALS: BP 121/60; PULSE 71; RESP 16
--- NOTE | 2018-08-08 17:44 | CONS ---
Consult Date/Type/Reason Admit Date/Time July 30, 2018 at 08:40 Initial Consult Date 08/04/18 Type of Consultation: Urology Reason for Consultation Urinary retention, right renal subcapsular hematoma and abscess Requesting Provider: SIMONE EDDY Date/Time of Note DATE: 08/08/18 TIME: 17:38 Subjective Patient denies having any pain. Objective Vitals Vital Signs Date Temp Pulse Resp B/P (MAP) Pulse Ox O2 O2 Flow FiO2 Time Delivery Rate 08/08/18 98.1 71 16 121/60 91 15:56 (80) 08/07/18 Nasal 2.0 02:49 Cannula Intake and Output 08/07/18 08/07/18 08/08/18 1515:00 23:00 07:00 IntakeIntake Total 920 ml 420 ml 240 ml OutputOutput Total 1700 ml 700 ml 900 ml BalanceBalance -780 ml -280 ml -660 ml Exam The Ryan catheter is draining clear orange color urine from the Pyridium Results/Medications Result Diagram: 08/07/18 0659 08/07/18 0659 Results 24 hrs Laboratory Tests Test 08/07/18 18:07 08/07/18 20:23 08/08/18 08:42 08/08/18 09:13 Bedside Glucose 116 144 106 Iron Level 19 L Total Iron Binding 163 L Capacity Percent Iron Saturation 12 L Test 08/08/18 12:57 Bedside Glucose 163 Home Meds Reported Medications Mirtazapine* (Remeron*) Unknown Strength Tablet, 1 TAB PO HS, TAB 07/29/18 Tamsulosin Hcl* (Flomax*) 0.4 Mg Cap.er.24h, 0.4 MG PO HS, CAP 07/29/18 Atorvastatin* (Atorvastatin*) 80 Mg Tablet, 80 MG PO QHS, #30 TAB 07/29/18 Gabapentin* (Gabapentin*) 300 Mg Capsule, 300 MG PO DAILY, #60 CAP 07/29/18 Finasteride* (Finasteride*) 5 Mg Tablet, 5 MG PO DAILY, TAB 07/29/18 Aspirin* (Aspirin* EC) 81 Mg Tablet.dr, 81 MG PO DAILY, TAB 07/29/18 Lisinopril/Hydrochlorothiazide (Lisinopril-Hctz 20-12.5 mg Tab) 1 Each Tablet, 1 EACH PO BID, TAB 07/29/18 Medications Current Medications Aspirin (Halfprin) 81 mg DAILY PO Last administered on 08/08/18 08:44; Admin Dose 81 MG; Start 07/30/18 at 09:00 Atorvastatin Calcium (Lipitor) 80 mg QHS PO Last administered on 08/07/18 20:28; Admin Dose 80 MG; Start 07/29/18 at 21:00 Finasteride (Proscar) 5 mg DAILY PO Last administered on 08/08/18 08:44; Admin Dose 5 MG; Start 07/30/18 at 09:00 IV Flush (NS 3 ml) 3 ml PER PROTOCOL IV ; Start 07/29/18 at 15:30 Ondansetron HCl (Zofran Inj) 4 mg Q6H PRN IV NAUSEA/VOMITING Last administered on 08/08/18 08:45; Admin Dose 4 MG; Start 07/29/18 at 15:30 Acetaminophen (Tylenol Tab) 650 mg Q6H PRN PO .PAIN 1-3 OR TEMP Last administered on 08/03/18 08:20; Admin Dose 650 MG; Start 07/29/18 at 15:30 Diagnostic Test (Pha) (Accu-Chek) 1 ea 02 XX ; Start 07/30/18 at 02:00 Insulin Aspart (Novolog Insulin Pen) NOVOLOG *MILD* ALGORITHM WITH MEALS BEDTIME SC Last administered on 08/08/18 13:01; Admin Dose 1 UNIT; Start 07/29/18 at 18:00 Miscellaneous Information 1 ea NOTE XX ; Start 07/29/18 at 16:00 Glucose (Glutose) 15 gm Q15M PRN PO DECREASED GLUCOSE; Start 07/29/18 at 16:00 Glucose (Glutose) 22.5 gm Q15M PRN PO DECREASED GLUCOSE; Start 07/29/18 at 16:00 Dextrose (D50w Syringe) 25 ml Q15M PRN IV DECREASED GLUCOSE; Start 07/29/18 at 16:00 Dextrose (D50w Syringe) 50 ml Q15M PRN IV DECREASED GLUCOSE; Start 07/29/18 at 16:00 Glucagon (Glucagen) 1 mg Q15M PRN IM DECREASED GLUCOSE; Start 07/29/18 at 16:00 Glucose (Glutose) 15 gm Q15M PRN BUCCAL DECREASED GLUCOSE; Start 07/29/18 at 16:00 Metoclopramide HCl (Reglan) 5 mg Q6H PRN IV nausea Last administered on 07/30/18 17:44; Admin Dose 5 MG; Start 07/30/18 at 14:30 Phenazopyridine HCl (Pyridium) 200 mg TID PO Last administered on 08/08/18 08:43; Admin Dose 200 MG; Start 08/02/18 at 13:00 Amlodipine Besylate (Norvasc) 10 mg DAILY PO Last administered on 08/08/18 08:44; Admin Dose 10 MG; Start 08/03/18 at 09:00 Hydromorphone HCl (Dilaudid) 0.5 mg Q6H PRN IV SEVERE PAIN LEVEL 7-10 Last administered on 08/08/18 05:20; Admin Dose 0.5 MG; Start 08/02/18 at 12:30 Morphine Sulfate (Ms Contin (Er)) 15 mg BID PO Last administered on 08/08/18 08:44; Admin Dose 15 MG; Start 08/04/18 at 13:30 Acetylcysteine (Nac) 1,200 mg BID PO Last administered on 08/08/18 08:44; Admin Dose 1,200 MG; Start 08/04/18 at 15:00; Stop 08/10/18 at 14:59 Al Hydrox/Mg Hydrox/Simethicone (Mag-Al Plus) 30 ml Q4H PRN PO GASTROINTESTINAL UPSET Last administered on 08/05/18 03:02; Admin Dose 30 ML; Start 08/05/18 at 03:00 Insulin Aspart (Novolog Insulin Pen) 5 unit WITH MEALS SC Last administered on 08/08/18 13:02; Admin Dose 5 UNIT; Start 08/05/18 at 18:00 Insulin Glargine (Lantus) 12 units DAILY@2000 SC Last administered on 08/07/18 20:26; Admin Dose 12 UNITS; Start 08/05/18 at 20:00 Tamsulosin HCl (Flomax) 0.4 mg BID PO Last administered on 08/08/18 08:44; Admin Dose 0.4 MG; Start 08/07/18 at 21:00 Ertapenem 1 gm/ Sodium Chloride 100 ml @ 200 mls/hr Q24H IVPB Last administered on 08/08/18 15:42; Admin Dose 200 MLS/HR; Start 08/07/18 at 15:30 Gabapentin (Neurontin) 100 mg AC BREAKFAST DINNER PO ; Start 08/08/18 at 17:30 Gabapentin (Neurontin) 600 mg QHS PO ; Start 08/08/18 at 21:00 Assessment/Plan Hospital Course (Demo Recall) 63-year-old male has a long-standing history of diabetes, chronic kidney disease, hypertension, BPH, and urinary tract infection causing sepsis requiring multiple hospitalization was sent by his primary care physician to the emergency room because he was found to have bad infection in his urine. Patient has been having fever and chills over 2 days prior to admission. He denied dysuria, hematuria, urinary frequency, urgency, dribbling, nocturia. He underwent CT scan of the abdomen and pelvis and that showed: 1. Although there has been interval decrease in density of the right subcapsular hematoma, overall the size of the subcapsular collection has been slightly increased. 2. Interval increase in the low to intermediate density perinephric fluid collection posterior and inferior to the right kidney. 3. Single focus of air is seen within the subcapsular collection which is nonspecific. Additional foci of air seen within the perinephric fluid collection. Clinical correlation with possible developing abscess is recommended. 4. Small amount of linear fluid collection outside of the Gerota's fascia extending posteriorly and inferiorly along the right paracolic gutter which is new compared to prior study. 5. Near complete resolution of the bilateral pleural effusions. 6. Persistent hepatosplenomegaly with diffuse hepatic steatosis. 7. Persistent subcentimeter retroperitoneal and mesenteric lymph nodes. A urological consultation was therefore requested I reviewed the CT scan with the radiologist and had the CT scan repeated with IV contrast and that showed: Urinary: Stable subcapsular fluid collection with heterogeneous hyperdensity at the posterior right kidney measuring 8.6 x 6.7 x 11.2 cm, better characterized on this exam with IV contrast, but unchanged in size in comparison to prior exam. There is stable extension of the fluid into the pararenal space with multiloculated fluid and scattered small foci of air; the largest component measures approximately 7.6 x 3.4 cm. Stable extension along the anterior Gerota's fascia and pericolic gutter with peripheral enhancement; the largest component along the pericolic gutter measures approximately 4.1 x 2.5 cm. Increased mild fullness/hydronephrosis of the left renal collecting system and dilation of the left ureter. Interval increased distension of the bladder, again seen with mild irregular wall thickening. The bladder is distended and when I looked at the CT scan I put the order for the nurse to insert the Ryan catheter for him but he refused. When I came in this evening I talked to him and explained to him the reason for the catheter and made him feel his bladder distended up to his umbilicus he then accepted to have the catheter and I inserted a 16 Romansh and 1500 mL drained. He then did acknowledge he was doing self intermittent catheterization about an year ago. He did it for 2 weeks and then stopped. I advised him that he needs to do it again and keep doing it to prevent the urinary retention and the hydronephrosis and further damage to his renal function. The subcapsular hematoma has been drained and the culture from it is showing E. coli ESBL. The patient is already on ertapenem and should continue that. I again discussed with him removing the Ryan catheter and starting him on self catheterization every 6 hours he will try to do it and I will have the nurses supervise him to make sure that he is doing it correctly. AMI BURTON MD Aug 08, 2018 17:44
[2018-08-08] MEDS: GABAPENTIN 100 MG CAP PO SCH (18:08)
[2018-08-08 19:19] VITALS: BP 112/57; PULSE 75; RESP 18
[2018-08-08] MEDS: INSULIN GLARGINE [LANTus] (100 UNITS/ML) SYG SC SCH (19:58)
[2018-08-08] MEDS ORDERED: GABAPENTIN 300 MG CAP PO SCH (21:00)
[2018-08-08] MEDS: ATORVASTATIN 80 MG TAB PO SCH (21:05)
[2018-08-09 00:58] VITALS: BP 128/58; PULSE 95; RESP 18
[2018-08-09] MEDS: ACETAMINOPHEN 325 MG TAB PO PRN (01:01)
[2018-08-09] MEDS: ACCU-CHEK XX SCH (02:00)
[2018-08-09] MEDS: HYDROmorphONE 0.5 MG/0.5 ML SYG IV PRN (05:13)
[2018-08-09] MEDS: GABAPENTIN 100 MG CAP PO SCH ×2 (06:48→18:01)
[2018-08-09 07:44] VITALS: BP 123/61; PULSE 75; RESP 14
[2018-08-09] MEDS: INSULIN ASPART [NOVOLOG] 3 ML PEN SC SCH ×6 (08:00→18:04)
[2018-08-09] MEDS: morphine (ER) 15 MG TAB PO SCH (09:14)
[2018-08-09] MEDS: ASPIRIN (EC) 81 MG TAB PO SCH (09:14)
[2018-08-09] MEDS: PHENAZOPYRIDINE 200 MG TAB PO SCH ×2 (09:14→12:40)
[2018-08-09] MEDS: TAMSULOSIN (SR) 0.4 MG CAP PO SCH (09:15)
[2018-08-09] MEDS: AMLODIPINE 10 MG TAB PO SCH (09:15)
[2018-08-09] MEDS: ACETYLCYSTEINE 600 MG CAP PO SCH (09:15)
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
[2018-08-09] MEDS ORDERED: GABA300C16 PO (11:41)
[2018-08-09] MEDS ORDERED: AMLO-147 PO (11:43)
[2018-08-09] MEDS ORDERED: ERTA1VIA3 IV* (11:45)
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
[2018-08-09] MEDS: FINASTERIDE 5 MG TAB PO SCH (12:40)
--- NOTE | 2018-08-09 14:10 | CONS ---
Assessment/Plan Assessment/Plan Assessment/Plan (Daily) 1. Hyponatremia. - Multifactorial due to Diuretic in the setting of CKD . 2. 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 Anemia of CKD II/III 4. Sepsis secondary to urinary tract infection, pyelonephritis 6. H/o Diabetes 7. H/o Dyslipidemia 8. H/o BPH 9. H/o Hypertension 10. H/o Chronic Neurogenic bladder 11. Diffuse pelvic lymphadenopathy with perirectal inguinal lymph nodes 12. acute UTI with Urine cx growing ESBL E coli. 13. Persistent left renal subcapsular hematoma s/p CT guided drainage of hematoma 08/06/18 Plan: - Na 136, K 4/1 BUN/Cr 21/1.1, BP stable - still has hematuria - s/p CT guided drainage of left subcapsular hematoma on 08/06/18 - IV abx INvanz for ESBL EColi UTI, Renally dose all abx and monitor electrolytes - Amlodipine for BP control - will follow up Consultation Date/Type/Reason Admit Date/Time July 30, 2018 at 08:40 Initial Consult Date 08/02/18 Requesting Provider: SIMONE EDDY Date/Time of Note DATE: 08/09/18 TIME: 14:10 Exam/Review of Systems Exam Vitals Vital Signs Date Temp Pulse Resp B/P (MAP) Pulse Ox O2 O2 Flow FiO2 Time Delivery Rate 08/09/18 97.8 75 14 123/61 92 07:44 (81) 08/07/18 Nasal 2.0 02:49 Cannula Intake and Output 08/08/18 08/08/18 08/09/18 1515:00 23:00 07:00 IntakeIntake Total 800 ml 400 ml OutputOutput Total 900 ml 800 ml BalanceBalance 800 ml -500 ml -800 ml Exam Constitutional: alert ENMT: nl external ears & nose Neck: supple, non-tender Respiratory: diminished breath sounds Cardiovascular: regular rate and rhythm Gastrointestinal: soft Musculoskeletal: nl extremities to inspection Neurological: TROUBLE LINEMAN II-XII intact, nl mental status, nl speech Lymph: nl lymph nodes Results Result Diagram: 08/09/18 0439 08/09/18 0439 Results 24hrs Laboratory Tests Test 08/08/18 18:05 08/08/18 19:56 08/09/18 04:39 08/09/18 08:00 Bedside Glucose 142 121 129 White Blood Count 10.8 # Red Blood Count 3.17 L Hemoglobin 7.8 L Hematocrit 24.6 L Mean Corpuscular Volume 77.6 L Mean Corpuscular 24.6 L Hemoglobin Mean Corpuscular 31.7 L Hemoglobin Concent Red Cell Distribution 13.4 Width Platelet Count 446 H Mean Platelet Volume 8.7 Immature Granulocytes % 0.600 H Neutrophils % 65.8 Lymphocytes % 24.6 Monocytes % 6.5 Eosinophils % 2.0 Basophils % 0.5 Nucleated Red Blood 0.0 Cells % Immature Granulocytes # 0.070 H Neutrophils # 7.1 Lymphocytes # 2.7 Monocytes # 0.7 Eosinophils # 0.2 Basophils # 0.1 Nucleated Red Blood 0.0 Cells # Erythrocyte 79 H Sedimentation Rate Sodium Level 136 Potassium Level 4.1 Chloride Level 102 Carbon Dioxide Level 24 Anion Gap 10 Blood Urea Nitrogen 21 H Creatinine 1.13 Est Glomerular Filtrat > 60 Rate mL/min Glucose Level 126 # Calcium Level 8.6 Total Bilirubin 0.8 Direct Bilirubin 0.00 Indirect Bilirubin 0.8 Aspartate Amino 26 Transf (AST/SGOT) Alanine 27 Aminotransferase (ALT/SG PT) Alkaline Phosphatase 194 H Total Protein 6.4 Albumin 2.8 L Globulin 3.60 H Albumin/Globulin Ratio 0.77 Test 08/09/18 12:20 Bedside Glucose 159 Medications Medication Current Medications Aspirin (Halfprin) 81 mg DAILY PO Last administered on 08/09/18at 09:14; Admin Dose 81 MG; Start 07/30/18 at 09:00 Atorvastatin Calcium (Lipitor) 80 mg QHS PO Last administered on 08/08/18at 21:05; Admin Dose 80 MG; Start 07/29/18 at 21:00 Finasteride (Proscar) 5 mg DAILY PO Last administered on 08/09/18at 12:40; Admin Dose 5 MG; Start 07/30/18 at 09:00 IV Flush (NS 3 ml) 3 ml PER PROTOCOL IV ; Start 07/29/18 at 15:30 Ondansetron HCl (Zofran Inj) 4 mg Q6H PRN IV NAUSEA/VOMITING Last administered on 08/08/18at 08:45; Admin Dose 4 MG; Start 07/29/18 at 15:30 Acetaminophen (Tylenol Tab) 650 mg Q6H PRN PO .PAIN 1-3 OR TEMP Last administered on 08/09/18 01:01; Admin Dose 650 MG; Start 07/29/18 at 15:30 Diagnostic Test (Pha) (Accu-Chek) 1 ea 02 XX ; Start 07/30/18 at 02:00 Insulin Aspart (Novolog Insulin Pen) NOVOLOG *MILD* ALGORITHM WITH MEALS BEDTIME SC Last administered on 08/09/18 12:32; Admin Dose 1 UNIT; Start 07/29/18 at 18:00 Miscellaneous Information 1 ea NOTE XX ; Start 07/29/18 at 16:00 Glucose (Glutose) 15 gm Q15M PRN PO DECREASED GLUCOSE; Start 07/29/18 at 16:00 Glucose (Glutose) 22.5 gm Q15M PRN PO DECREASED GLUCOSE; Start 07/29/18 at 16:00 Dextrose (D50w Syringe) 25 ml Q15M PRN IV DECREASED GLUCOSE; Start 07/29/18 at 16:00 Dextrose (D50w Syringe) 50 ml Q15M PRN IV DECREASED GLUCOSE; Start 07/29/18 at 16:00 Glucagon (Glucagen) 1 mg Q15M PRN IM DECREASED GLUCOSE; Start 07/29/18 at 16:00 Glucose (Glutose) 15 gm Q15M PRN BUCCAL DECREASED GLUCOSE; Start 07/29/18 at 16:00 Metoclopramide HCl (Reglan) 5 mg Q6H PRN IV nausea Last administered on 07/30/18at 17:44; Admin Dose 5 MG; Start 07/30/18 at 14:30 Phenazopyridine HCl (Pyridium) 200 mg TID PO Last administered on 08/09/18 12:40; Admin Dose 200 MG; Start 08/02/18 at 13:00 Amlodipine Besylate (Norvasc) 10 mg DAILY PO Last administered on 08/09/18 09:15; Admin Dose 10 MG; Start 08/03/18 at 09:00 Hydromorphone HCl (Dilaudid) 0.5 mg Q6H PRN IV SEVERE PAIN LEVEL 7-10 Last administered on 08/09/18 05:13; Admin Dose 0.5 MG; Start 08/02/18 at 12:30 Morphine Sulfate (Ms Contin (Er)) 15 mg BID PO Last administered on 08/09/18 09:14; Admin Dose 15 MG; Start 08/04/18 at 13:30 Acetylcysteine (Nac) 1,200 mg BID PO Last administered on 08/09/18 09:15; Admin Dose 1,200 MG; Start 08/04/18 at 15:00; Stop 08/10/18 at 14:59 Al Hydrox/Mg Hydrox/Simethicone (Mag-Al Plus) 30 ml Q4H PRN PO GASTROINTESTINAL UPSET Last administered on 08/05/18 03:02; Admin Dose 30 ML; Start 08/05/18 at 03:00 Insulin Aspart (Novolog Insulin Pen) 5 unit WITH MEALS SC Last administered on 08/09/18 12:33; Admin Dose 5 UNIT; Start 08/05/18 at 18:00 Insulin Glargine (Lantus) 12 units DAILY@2000 SC Last administered on 08/08/18 19:58; Admin Dose 12 UNITS; Start 08/05/18 at 20:00 Tamsulosin HCl (Flomax) 0.4 mg BID PO Last administered on 08/09/18 09:15; Admin Dose 0.4 MG; Start 08/07/18 at 21:00 Ertapenem 1 gm/ Sodium Chloride 100 ml @ 200 mls/hr Q24H IVPB Last administe red on 08/08/18 15:42; Admin Dose 200 MLS/HR; Start 08/07/18 at 15:30 Gabapentin (Neurontin) 100 mg AC BREAKFAST DINNER PO Last administered on 08/09/18 06:48; Admin Dose 100 MG; Start 08/08/18 at 17:30 Gabapentin (Neurontin) 600 mg QHS PO Last administered on 08/08/18 21:05; Admin Dose 600 MG; Start 08/08/18 at 21:00 TALITA DICKENS MD Aug 09, 2018 14:10
--- NOTE | 2018-08-09 14:12 | CONS ---
Assessment/Plan Assessment/Plan Hospital Course (Demo Recall) No acute changes alert, feels okay no fevers overnight Antimicrobials: Invanz Microbiology: Urine culture on admission grew E. coli ESBL, aspirated fluid cultures positive for E. coli ESBL Physical examination: Well-developed elderly man who is in no distress. Head atraumatic normocephalic neck is supple chest rise symmetrical breath sounds diminished bases. Heart: S1-S2 abdomen soft bowel sounds present Assessment: 1. E. coli ESBL UTI 2. BPH/retention, s/p Ryan 3. Diabetes 4. Anemia 5. Status post infected right subcapsular hematoma drainage with cx + ESBL Plan: Patient remains stable, consider to keep on abx for 7 more days Consultation Date/Type/Reason Admit Date/Time July 30, 2018 at 08:40 Initial Consult Date 08/02/18 Type of Consult id Requesting Provider: SIMONE EDDY Date/Time of Note DATE: 08/09/18 TIME: 14:09 Exam/Review of Systems Exam Vitals Vital Signs Date Temp Pulse Resp B/P (MAP) Pulse Ox O2 O2 Flow FiO2 Time Delivery Rate 08/09/18 97.8 75 14 123/61 92 07:44 (81) 08/07/18 Nasal 2.0 02:49 Cannula Intake and Output 08/08/18 08/08/18 08/09/18 1515:00 23:00 07:00 IntakeIntake Total 800 ml 400 ml OutputOutput Total 900 ml 800 ml BalanceBalance 800 ml -500 ml -800 ml Results Result Diagram: 08/09/18 0439 08/09/18 0439 Results 24hrs Laboratory Tests Test 08/08/18 18:05 08/08/18 19:56 08/09/18 04:39 08/09/18 08:00 Bedside Glucose 142 121 129 White Blood Count 10.8 # Red Blood Count 3.17 L Hemoglobin 7.8 L Hematocrit 24.6 L Mean Corpuscular Volume 77.6 L Mean Corpuscular 24.6 L Hemoglobin Mean Corpuscular 31.7 L Hemoglobin Concent Red Cell Distribution 13.4 Width Platelet Count 446 H Mean Platelet Volume 8.7 Immature Granulocytes % 0.600 H Neutrophils % 65.8 Lymphocytes % 24.6 Monocytes % 6.5 Eosinophils % 2.0 Basophils % 0.5 Nucleated Red Blood 0.0 Cells % Immature Granulocytes # 0.070 H Neutrophils # 7.1 Lymphocytes # 2.7 Monocytes # 0.7 Eosinophils # 0.2 Basophils # 0.1 Nucleated Red Blood 0.0 Cells # Erythrocyte 79 H Sedimentation Rate Sodium Level 136 Potassium Level 4.1 Chloride Level 102 Carbon Dioxide Level 24 Anion Gap 10 Blood Urea Nitrogen 21 H Creatinine 1.13 Est Glomerular Filtrat > 60 Rate mL/min Glucose Level 126 # Calcium Level 8.6 Total Bilirubin 0.8 Direct Bilirubin 0.00 Indirect Bilirubin 0.8 Aspartate Amino 26 Transf (AST/SGOT) Alanine 27 Aminotransferase (ALT/SG PT) Alkaline Phosphatase 194 H Total Protein 6.4 Albumin 2.8 L Globulin 3.60 H Albumin/Globulin Ratio 0.77 Test 08/09/18 12:20 Bedside Glucose 159 Medications Medication Current Medications Aspirin (Halfprin) 81 mg DAILY PO Last administered on 08/09/18 09:14; Admin Dose 81 MG; Start 07/30/18 at 09:00 Atorvastatin Calcium (Lipitor) 80 mg QHS PO Last administered on 08/08/18 21:05; Admin Dose 80 MG; Start 07/29/18 at 21:00 Finasteride (Proscar) 5 mg DAILY PO Last administered on 08/09/18 12:40; Admin Dose 5 MG; Start 07/30/18 at 09:00 IV Flush (NS 3 ml) 3 ml PER PROTOCOL IV ; Start 07/29/18 at 15:30 Ondansetron HCl (Zofran Inj) 4 mg Q6H PRN IV NAUSEA/VOMITING Last administered on 08/08/18 08:45; Admin Dose 4 MG; Start 07/29/18 at 15:30 Acetaminophen (Tylenol Tab) 650 mg Q6H PRN PO .PAIN 1-3 OR TEMP Last administered on 08/09/18 01:01; Admin Dose 650 MG; Start 07/29/18 at 15:30 Diagnostic Test (Pha) (Accu-Chek) 1 ea 02 XX ; Start 07/30/18 at 02:00 Insulin Aspart (Novolog Insulin Pen) NOVOLOG *MILD* ALGORITHM WITH MEALS BEDTIME SC Last administered on 08/09/18 12:32; Admin Dose 1 UNIT; Start 07/29/18 at 18:00 Miscellaneous Information 1 ea NOTE XX ; Start 07/29/18 at 16:00 Glucose (Glutose) 15 gm Q15M PRN PO DECREASED GLUCOSE; Start 07/29/18 at 16:00 Glucose (Glutose) 22.5 gm Q15M PRN PO DECREASED GLUCOSE; Start 07/29/18 at 16:00 Dextrose (D50w Syringe) 25 ml Q15M PRN IV DECREASED GLUCOSE; Start 07/29/18 at 16:00 Dextrose (D50w Syringe) 50 ml Q15M PRN IV DECREASED GLUCOSE; Start 07/29/18 at 16:00 Glucagon (Glucagen) 1 mg Q15M PRN IM DECREASED GLUCOSE; Start 07/29/18 at 16:00 Glucose (Glutose) 15 gm Q15M PRN BUCCAL DECREASED GLUCOSE; Start 07/29/18 at 16:00 Metoclopramide HCl (Reglan) 5 mg Q6H PRN IV nausea Last administered on 07/30/18at 17:44; Admin Dose 5 MG; Start 07/30/18 at 14:30 Phenazopyridine HCl (Pyridium) 200 mg TID PO Last administered on 08/09/18at 12:40; Admin Dose 200 MG; Start 08/02/18 at 13:00 Amlodipine Besylate (Norvasc) 10 mg DAILY PO Last administered on 08/09/18 09:15; Admin Dose 10 MG; Start 08/03/18 at 09:00 Hydromorphone HCl (Dilaudid) 0.5 mg Q6H PRN IV SEVERE PAIN LEVEL 7-10 Last administered on 08/09/18at 05:13; Admin Dose 0.5 MG; Start 08/02/18 at 12:30 Morphine Sulfate (Ms Contin (Er)) 15 mg BID PO Last administered on 08/09/18at 09:14; Admin Dose 15 MG; Start 08/04/18 at 13:30 Acetylcysteine (Nac) 1,200 mg BID PO Last administered on 08/09/18 09:15; Admin Dose 1,200 MG; Start 08/04/18 at 15:00; Stop 08/10/18 at 14:59 Al Hydrox/Mg Hydrox/Simethicone (Mag-Al Plus) 30 ml Q4H PRN PO GASTROINTESTINAL UPSET Last administered on 08/05/18at 03:02; Admin Dose 30 ML; Start 08/05/18 at 03:00 Insulin Aspart (Novolog Insulin Pen) 5 unit WITH MEALS SC Last administered on 08/09/18 12:33; Admin Dose 5 UNIT; Start 08/05/18 at 18:00 Insulin Glargine (Lantus) 12 units DAILY@2000 SC Last administered on 08/08/18 19:58; Admin Dose 12 UNITS; Start 08/05/18 at 20:00 Tamsulosin HCl (Flomax) 0.4 mg BID PO Last administered on 08/09/18 09:15; Admin Dose 0.4 MG; Start 08/07/18 at 21:00 Ertapenem 1 gm/ Sodium Chloride 100 ml @ 200 mls/hr Q24H IVPB Last administered on 08/08/18 15:42; Admin Dose 200 MLS/HR; Start 08/07/18 at 15:30 Gabapentin (Neurontin) 100 mg AC BREAKFAST DINNER PO Last administered on 06:48; Admin Dose 100 MG; Start 08/08/18 at 17:30 Gabapentin (Neurontin) 600 mg QHS PO Last administered on 08/08/18 21:05; Admin Dose 600 MG; Start 08/08/18 at 21:00 BELL WEEMS NP Aug 09, 2018 14:12
[2018-08-09 14:42] VITALS: BP 123/62; PULSE 88; RESP 16
[2018-08-09] MEDS: ERTAPENEM SODIUM 1 GM in SOD CHLORIDE 0.9% 100 ML IVPB SCH (15:16)
[2018-08-09 19:35] VITALS: BP 121/57; PULSE 93; RESP 18
== END 2018-08-09 19:50 | disposition home health service (06) | DRG 871 ==
LOC: E/R 10:29 → 2NE 12:53 → OBSVTOIN 07-30 08:40
PROVIDERS: ADMIT Internal Medicine; ATTEND Family Medicine
PROC: 0DBP8ZX Excision of Rectum, Via Natural or Artificial Opening Endoscopic, Diagnostic (ICD-10-PCS; 2018-08-03)
PROC: 0T913ZX Drainage of Left Kidney, Percutaneous Approach, Diagnostic (ICD-10-PCS; principal; 2018-08-06)
DX: A41.9 Sepsis, unspecified organism (principal); N15.1 Renal and perinephric abscess; E87.1 Hypo-osmolality and hyponatremia; I12.0 Hypertensive chronic kidney disease with stage 5 chronic kidney disease or end stage renal disease; N17.9 Acute kidney failure, unspecified; N10 Acute pyelonephritis; E11.22 Type 2 diabetes mellitus with diabetic chronic kidney disease; N31.9 Neuromuscular dysfunction of bladder, unspecified; E78.5 Hyperlipidemia, unspecified; N40.0 Benign prostatic hyperplasia without lower urinary tract symptoms; N28.89 Other specified disorders of kidney and ureter; D63.1 Anemia in chronic kidney disease; K62.89 Other specified diseases of anus and rectum; N18.3 Chronic kidney disease, stage 3 (moderate); E11.21 Type 2 diabetes mellitus with diabetic nephropathy; B96.20 Unspecified Escherichia coli [E. coli] as the cause of diseases classified elsewhere
CPT/HCPCS: 36415; 71045; 74176; 74177; 76775; 77012; 80048; 80053; 80061; 81001; 81003; 82043; 82378; 82533; 82962; 83036; 83540; 83605; 83735; 83930; 83935; 84100; 84153; 84154; 84155; 84300; 84484; 84560; 85025; 85651; 87070; 87081; 87086; 88305; 96365; 96367; 99217; G0378; J0692; J1170; J1335; J1815; J1956; J2185; J2270; J2405; J2765; J3010; J7030; J7040; Q5106; Q9967

== ENCOUNTER 2018-10-13 13:00 | Emergency (ER) | payer OTHER ==
[~2018-10-13] VITALS: Ht 167.6 cm; Wt 68.8 kg
[~2018-10-13 13:00] MED LIST changes: +ALOG25TA2 PO; +AMLO-147 PO; -AMLO2.5T78 PO; +ASPI-817 PO; +ATOR-2 PO; -ATOR10TA65 PO; -FINA5TAB PO; -GABA300C PO; +GABA300C16 PO; -HYDR-3671 PO; +IBUP-1542 PO; +INSU100I33 SC; -LANT3I SC; +LISI1TAB6 PO; -LORA10CA PO; +NATE120T PO; -NITR-58 PO; -NITR0.4T32 SL; -OMEG-157 PO; +TAMS-14 PO; -TAMS0.4C2 PO
[2018-10-13 13:04] VITALS: Ht 167.6 cm; Wt 68.8 kg
[2018-10-13 15:34] VITALS: BP 143/90; PULSE 89; RESP 18
--- NOTE | 2018-10-13 15:34 | ERD ---
ER Documentation Chief Complaint Chief Complaint Pt here for R nephrostomy drain removal HPI 63-year-old male presenting requesting right nephrostomy removal. He has had the nephrostomy in for 6 weeks for an abscess on his kidney. He noticed that it was not draining much so he decided to take the bag off and come into the ER to have it removed. His dressings have not been changed since 2 weeks ago when he left the hospital. He denies any pain in his flank or his abdomen. He is urinating normally with no dysuria. Denies any fevers or chills. No nausea or vomiting. ROS All systems reviewed and are negative except as per history of present illness. Medications Home Meds Active Scripts Alogliptin Benzoate (Alogliptin) 25 Mg Tablet, 25 MG PO DAILY, #60 TAB Prov:AURA QUIROS MD 09/29/18 Reported Medications Ibuprofen* (Ibuprofen*) 600 Mg Tablet, 600 MG PO NEEDED PRN for PAIN, TAB 10/13/18 Gabapentin* (Gabapentin*) 300 Mg Capsule, 300 MG PO BID, #60 CAP 10/13/18 Tamsulosin Hcl* (Flomax*) 0.4 Mg Cap.er.24h, 0.4 MG PO HS, CAP 10/13/18 Nateglinide* (Nateglinide*) 120 Mg Tablet, 120 MG PO AC MEALS, TAB 09/11/18 Lisinopril/Hydrochlorothiazide (Lisinopril-Hctz 20-12.5 mg Tab) 1 Each Tablet, 1 EACH PO BID, TAB 09/11/18 Discontinued Reported Medications Insulin Aspart* (Novolog Insulin Pen*) 100 Unit/Ml Soln, 0 SC .SLIDING SCALE AC, EA 09/11/18 Atorvastatin* (Atorvastatin*) 80 Mg Tablet, 80 MG PO QHS, #30 TAB 07/29/18 Aspirin* (Aspirin* EC) 81 Mg Tablet.dr, 81 MG PO DAILY, TAB 07/29/18 Discontinued Scripts Insulin Glargine,Hum.rec.anlog (Basaglar Kwikpen U-100) 100 Unit/1 Ml Insuln.pen, 30 UNIT SC QHS, #30 EA 3 Refills Prov:AURA QUIROS MD 09/29/18 Amlodipine Besylate* (Amlodipine Besylate*) 10 Mg Tablet, 10 MG PO DAILY, #30 TAB Prov:ROX YOUNGA V. W[employer]IECE GOODS INSPECTOR 08/09/18 Gabapentin* (Gabapentin*) 300 Mg Capsule, 300 MG PO TIDM A, #60 CAP Prov:YOUNG,CARLINE V. WIDE PIECE GOODS INSPECTOR 08/09/18 Allergies Allergies: Coded Allergies: metformin (Unverified Allergy, Intermediate, Diarrhea, 10/13/18) codeine (Verified Allergy, Mild, nausea/vomiting, 10/13/18) hydrocodone (Verified Allergy, Mild, nausea/vomiting, 10/13/18) tramadol (Verified Allergy, Mild, nausea/vomiting, 10/13/18) Uncoded Allergies: ANTIBIOTICS (Allergy, Severe, 06/04/17) unknown antibiotic ANTIBIOTICS UNKNOWN (Allergy, Unknown, 03/24/18) PATIENT SAYS HIS ALLERGIC TO SOME OF THE ANTIBIOTICS PMhx/Soc History of Surgery: Yes (back sx x2, exploratory abd sx, nephrostomy drain) Anesthesia Reaction: No Hx Neurological Disorder: No Hx Respiratory Disorders: No Hx Cardiac Disorders: No Hx Psychiatric Problems: No Hx Miscellaneous Medical Probl: Yes (Diabetes, hypertension, BPH, neurogenic bladder) Hx Alcohol Use: No Hx Substance Use: No Hx Tobacco Use: No Smoking Status: Never smoker FmHx Family History: No diabetes Physical Exam Vitals Vital Signs Date Temp Pulse Resp B/P (MAP) Pulse Ox O2 O2 Flow FiO2 Time Delivery Rate 10/13/18 84 16 149/73 99 Room Air 14:46 (98) 10/13/18 98.5 96 16 162/74 96 13:04 (103) Physical Exam INITIAL VITAL SIGNS: Reviewed by me GENERAL: Well appearing, non toxic, speaking in full sentences. HEENT: Atraumatic, Moist mucous membranes RESPIRATORY: No respiratory distress. ABD: Nontender, nondistended BACK: Right nephrostomy drain in place with overlying dirty dressing. After dressing removed, no surrounding erythema or tenderness. No evidence of infection. Aspirated purulent fluid from the drain EXTREMITIES: No clubbing or cyanosis. No edema SKIN: Warm, dry. NEUROLOGIC: Alert and awake. No facial asymmetry. Normal speech. Procedures/MDM I explained to the patient that his nephrostomy tube is not ready to be removed as he still has purulent drainage that I was able to aspirate from the drain. He is afebrile at this time with no signs of sepsis. Dressing was replaced and new bag placed. Patient advised to follow-up with either Dr. Burton or his primary care doctor in 1 week to reevaluate the drain for removal Departure Diagnosis: Primary Impression: Attention to nephrostomy Condition: Stable Patient Instructions: Percutaneous Nephrostomy Referrals: AMI BURTON MD Additional Instructions: Follow-up with your primary care doctor or your urologist to have your nephrostomy tube checked within 1 week. Today there is still drainage and it is not time to remove the drain yet. KHLOE DESAI MD Oct 13, 2018 15:34
== END 2018-10-13 15:48 | disposition home or self-care (01) ==
LOC: E/R 13:00
DX: Z43.6 Encounter for attention to other artificial openings of urinary tract (principal); E11.9 Type 2 diabetes mellitus without complications; Z79.4 Long term (current) use of insulin
CPT/HCPCS: 99281

== ENCOUNTER 2018-10-19 12:07 | Emergency (ER) | payer OTHER ==
[~2018-10-19] VITALS: Ht 167.6 cm; Wt 67.4 kg
[~2018-10-19 12:07] MED LIST changes: -AMLO-147 PO; -ASPI-817 PO; -ATOR-2 PO; -INSU100I33 SC; -NOVO3I SC
[2018-10-19 12:18] VITALS: BP 159/73; PULSE 73; RESP 17; Ht 167.6 cm; Wt 67.4 kg
--- NOTE | 2018-10-19 13:33 | ERD ---
ER Documentation Chief Complaint Chief Complaint RECHECK ON NEPHROSTOMY TUBE, PT WANTS IT TAKEN OUT HPI The patient is a 63-year-old male, presenting to the ER because he wanted his nephrostomy tube to be removed, was placed 7 weeks ago due to right perinephric abscess. He has not seen by his urologist after discharge. He was here a week ago with similar request but advised to follow-up with his urologist. Denies fever, chills, neck pain, chest pain, dyspnea, abdominal pain, vomiting, dysuria, diarrhea. Past medical history: Diabetes mellitus, hypertension, BPH, neurogenic bladder Past surgical history: Back surgery, abdominal exploratory surgery ROS All systems reviewed and are negative except as per history of present illness. Medications Home Meds Active Scripts Alogliptin Benzoate (Alogliptin) 25 Mg Tablet, 25 MG PO DAILY, #60 TAB Prov:AURA QUIROS MD 09/29/18 Reported Medications Ibuprofen* (Ibuprofen*) 600 Mg Tablet, 600 MG PO NEEDED PRN for PAIN, TAB 10/13/18 Gabapentin* (Gabapentin*) 300 Mg Capsule, 300 MG PO BID, #60 CAP 10/13/18 Tamsulosin Hcl* (Flomax*) 0.4 Mg Cap.er.24h, 0.4 MG PO HS, CAP 10/13/18 Nateglinide* (Nateglinide*) 120 Mg Tablet, 120 MG PO AC MEALS, TAB 09/11/18 Lisinopril/Hydrochlorothiazide (Lisinopril-Hctz 20-12.5 mg Tab) 1 Each Tablet, 1 EACH PO BID, TAB 09/11/18 Discontinued Reported Medications Insulin Aspart* (Novolog Insulin Pen*) 100 Unit/Ml Soln, 0 SC .SLIDING SCALE AC, EA 09/11/18 Atorvastatin* (Atorvastatin*) 80 Mg Tablet, 80 MG PO QHS, #30 TAB 07/29/18 Aspirin* (Aspirin* EC) 81 Mg Tablet.dr, 81 MG PO DAILY, TAB 07/29/18 Discontinued Scripts Insulin Glargine,Hum.rec.anlog (Basaglar Kwikpen U-100) 100 Unit/1 Ml Insuln.pen, 30 UNIT SC QHS, #30 EA 3 Refills Prov:AURA QUIROS MD 09/29/18 Amlodipine Besylate* (Amlodipine Besylate*) 10 Mg Tablet, 10 MG PO DAILY, #30 TAB Prov:YOUNG,CARLINE V. REFRIGERATION ENGINEERING TEACHER 08/09/18 Gabapentin* (Gabapentin*) 300 Mg Capsule, 300 MG PO TIDM A, #60 CAP Prov:YOUNG,CARLINE V. REFRIGERATION ENGINEERING TEACHER 08/09/18 Allergies Allergies: Coded Allergies: metformin (Unverified Allergy, Intermediate, Diarrhea, 10/13/18) codeine (Unverified Allergy, Mild, nausea/vomiting, 10/19/18) hydrocodone (Unverified Allergy, Mild, nausea/vomiting, 10/19/18) tramadol (Unverified Allergy, Mild, nausea/vomiting, 10/19/18) Uncoded Allergies: ANTIBIOTICS (Allergy, Severe, 06/04/17) unknown antibiotic ANTIBIOTICS UNKNOWN (Allergy, Unknown, 03/24/18) PATIENT SAYS HIS ALLERGIC TO SOME OF THE ANTIBIOTICS PMhx/Soc History of Surgery: Yes (back sx x2, exploratory abd sx, nephrostomy drain) Anesthesia Reaction: No Hx Neurological Disorder: No Hx Respiratory Disorders: No Hx Cardiac Disorders: No Hx Psychiatric Problems: No Hx Miscellaneous Medical Probl: Yes (Diabetes, hypertension, BPH, neurogenic bladder) Hx Alcohol Use: No Hx Substance Use: No Hx Tobacco Use: No Physical Exam Vitals Vital Signs Date Temp Pulse Resp B/P (MAP) Pulse Ox O2 O2 Flow FiO2 Time Delivery Rate 10/19/18 98.4 73 17 159/73 98 12:18 (101) Physical Exam Const: No acute distress. Head: Atraumatic. Eyes: Normal Conjunctiva. ENT: Normal External Ears, Nose and Mouth. Neck: Full range of motion. No meningismus. Resp: Clear to auscultation bilaterally. Cardio: Regular rate and rhythm. Abd: Soft, non distended, normal bowel sounds, non tender. Right nephrostomy tube Skin: No petechiae or rashes. Back: No midline or flank tenderness. Ext: No cyanosis, or edema. Neur: Awake and alert. No focal deficit Psych: Normal Mood and Affect. Procedures/MDM Consultation: I discussed the patient with his urologist Dr. Chaudhari, who recommended abdominal CT with IV contrast to rule out any abscess before having radiologist remove the nephrostomy tube However the patient refused any blood test and leaves AGAINST MEDICAL ADVICE The differential diagnoses considered include but are not limited to: recurrent perinephric abscess, pyelonephritis, cholelithiasis, cholecystitis, choledocholithiasis, cholangitis, pancreatitis, hepatitis, gastritis, peptic ulcer disease, gastric ulcer, appendicitis, cystitis, diverticulitis, partial small bowel obstruction. Departure Diagnosis: Primary Impression: Other mechanical complication of nephrostomy catheter, subsequent encounter Condition: Stable Comments The patient is clinically sober, free of distracting injury, appears to have intact reason, insight, and judgment. In my view, the patient can make decisions The patient signed out AGAINST MEDICAL ADVICE. Risks, benefits, alternatives were explained to the patient. Risks include but not limited to and permanent disability Disclaimer: Inadvertent spelling and grammatical errors are likely due to EHR/dictation software use and do not reflect on the overall quality of patient care. Also, please note that the electronic time recorded on this note does not necessarily reflect the actual time of the patient encounter. LAYLA MUSTAFA MD Oct 19, 2018 13:33
== END 2018-10-19 14:35 | disposition left against medical advice (07) ==
LOC: E/R 12:07
DX: T83.092 Other mechanical complication of nephrostomy catheter (principal); E11.9 Type 2 diabetes mellitus without complications; I10 Essential (primary) hypertension; Y73.2 Prosthetic and other implants, materials and accessory gastroenterology and urology devices associated with adverse incidents
CPT/HCPCS: 99283